=== PATIENT | female | born 1960 | race Caucasian/White ===

== ENCOUNTER 2019-09-19 12:17 | Outpatient (CLI) | payer MEDICARE, MEDICAID, SELFPAY ==
--- NOTE | ~2019-09-19 | CT_ITS ---
EXAMINATION:CT lung screening DATE: 09/19/2019 13:32 INDICATION: Personal history of tobacco dependence. Smoker who quit 7 years ago with 30 pack year his tory. TECHNIQUE: Computed tomography (CT) of the chest was performed without intravenous contrast. Automate d exposure control and iterative reconstruction technique were employed. The dose-length product (DLP ) was 103.43 mGy-cm. COMPARISON: Chest CT 08/30/2018 FINDINGS: There is mild emphysema. There is minimal atelectasis bilaterally. No pleural effusion. The heart size is normal. There are coronary artery calcifications. No pericardial effusion. There is di ffuse hepatic steatosis. Calcifications in the spleen are consistent with old granulomatous disease. There is mild thoracic spondylosis. IMPRESSION: 1. Lung-RADS category 1: Negative. Continue annual screening with noncontrast low-dose chest CT in 12 months. Reviewed, dictated and finalized at location B. IMPRESSION: 1. Lung-RADS category 1: Negative. Continue annual screening with noncontrast l ow-dose chest CT in 12 months.
--- NOTE | ~2019-09-19 | MM_ITS ---
EXAMINATION: MM screening meenakshi BI w marek HISTORY: Screening TECHNIQUE: Craniocaudal and mediolateral oblique 3-D tomosynthesis images were obtained and synthetic 2-D images were generated. CAD analysis was submitted and interpreted. COMPARISON: Comparison to multiple prior studies sequentially, with oldest reviewed study dated 08/25. BREAST PARENCHYMAL COMPOSITION: There are scattered areas of fibroglandular density. FINDINGS: There is no evidence of suspicious mass, calcification, or architectural distortion to sugg est malignancy in either breast. There has been no suspicious interval change. IMPRESSION: 1. No mammographic evidence of malignancy. 2. Recommend routine screening mammography in one year. BI-RADS Category 1: Negative Reviewed, dictated and finalized at location A.
[2019-09-19 12:28] LABS: Hematocrit 41.2 % (35.0-49.0); Mean Corpuscular HGB Conc 31.6 g/dL (32.0-36.0); Mean Corpuscular Volume 94.9 fL (78.0-102.0); Mean Platelet Volume 10.5 fl (9.2-11.8); Platelet Count Result 175 K/mm3 (150-420); Red Blood Count 4.34 M/mm3 (4.20-5.40); Red Cell Distribution Width 13.2 % (11.6-14.4); White Blood Count 6.2 K/mm3 (4.8-10.8)
[2019-09-19 13:44] LABS: Alanine Aminotransferase 34 U/L (14-59); Albumin Level 3.5 g/dL (3.4-5.0); Alkaline Phosphatase 144 U/L (46-116); Anion Gap 7 mmol/L (8-16); Aspartate Amino Transferase 26 U/L (15-37); Bilirubin,Total 0.2 mg/dL (0.00-1.00); Blood Urea Nitrogen 18 mg/dL (7-18); Calcium 8.5 mg/dL (8.5-10.1); Carbon Dioxide 29 mmol/L (21-32); Chloride 105 mmol/L (98-108); Cholesterol 188 mg/dL (0-200); Estimated Glomerular Filt Rate 59; Glucose 119 mg/dL (70-99); HDL Direct 32 mg/dL (40-60); LDL Cholesterol Calculated 94 mg/dL (<130); Osmolality Calculated 294 mOsm/kg (285-295); Potassium 3.8 mmol/L (3.5-5.1); Sodium 141 mmol/L (136-145); Total Protein 6.7 g/dL (6.4-8.2); Triglycerides 312 mg/dL (0-150)
[2019-09-19 17:29] LABS: Hemoglobin A1C 6.1 % (<5.7)
== END 2019-09-19 12:18 | disposition home or self-care (01) ==
PROVIDERS: Nurse Practitioner Family; PCP Family Medicine; Visit Provider Family Medicine
DX: Z12.2 Encounter for screening for malignant neoplasm of respiratory organs (principal); Z12.31 Encounter for screening mammogram for malignant neoplasm of breast; E78.00 Pure hypercholesterolemia, unspecified; I10 Essential (primary) hypertension; R73.09 Other abnormal glucose; Z87.891 Personal history of nicotine dependence
CPT/HCPCS: 36415; 77063; 77067; 80053; 80061; 83036; 85027; G0297

== ENCOUNTER 2020-02-10 12:24 | Outpatient (CLI) | payer MEDICARE, SELFPAY ==
[2020-02-10 22:17] LABS: SARS-CoV-2 RNA PCR Negative
== END 2020-02-10 12:25 | disposition home or self-care (01) ==
LOC: CHSLAB 12:28
PROVIDERS: PCP Nurse Practitioner Family; Visit Provider Nurse Practitioner Family
DX: Z20.822 Contact with and (suspected) exposure to COVID-19 (principal)
CPT/HCPCS: C9803; U0003

== ENCOUNTER 2020-05-18 11:15 | Outpatient (CLI) | payer MEDICARE, SELFPAY ==
[2020-05-18 12:08] LABS: SARS-CoV-2 RNA PCR Negative (Negative)
== END 2020-05-18 11:16 | disposition home or self-care (01) ==
LOC: CHSLAB 11:18
PROVIDERS: PCP Nurse Practitioner Family; Visit Provider Nurse Practitioner Family
DX: U07.1 COVID-19 (principal); N20.0 Calculus of kidney
CPT/HCPCS: 87086; C9803; U0003; U0005

== ENCOUNTER 2020-06-02 15:06 | Outpatient (NON) | payer MEDICARE, SELFPAY | END 2020-06-02 15:07 | disposition home or self-care (01) | LOC: CHSLAB 15:08 | PROVIDERS: PCP Nurse Practitioner Family; Visit Provider Nurse Practitioner Family | DX: N20.0 Calculus of kidney (principal) | CPT/HCPCS: 87086 ==

== ENCOUNTER 2020-07-17 09:45 | Outpatient (CLI) | payer MEDICARE, MEDICAID, SELFPAY ==
--- NOTE | ~2020-07-17 | US_ITS ---
US renal BI 07/17/2020 10:26 Procedure: Realtime transabdominal ultrasound of the kidneys and bladder. Indication: Renal stones Comparison: No prior studies for comparison. Findings: Renal echotexture is normal bilaterally without hydronephrosis, contour deforming mass or r enal calculus. The right kidney measures 10.8 cm and left kidney measures 10.3 cm. Bladder within no rmal limits. Impression: 1: Unremarkable renal ultrasound. No stones, masses or hydronephrosis. Reviewed, dictated and finalized at location B. Impression: 1: Unremarkable renal ultrasound. No stones, masses or hydronephrosis.
[2020-07-17 09:55] LABS: Basophils Absolute Auto 0.09 K/mm3 (0.00-0.10); Basophils Percent Auto 1.3 % (0.0-1.0); Eosinophils Percent Auto 1.4 % (1.0-6.0); Hematocrit 44.1 % (35.0-49.0); Hemoglobin 14.4 g/dL (12.0-15.0); Immature Granulocyte Absolute 0.03 K/mm3 (0.00-0.00); Immature Granulocyte Percent A 0.4 % (0.0-0.0); Lymphocytes Percent Auto 30.7 % (18.0-42.0); Mean Corpuscular HGB Conc 32.7 g/dL (32.0-36.0); Mean Corpuscular Hemoglobin 29.5 pg (27.0-31.0); Mean Corpuscular Volume 90.4 fL (78.0-102.0); Monocytes Absolute Auto 0.42 K/mm3 (0.10-0.90); Monocytes Percent Auto 5.9 % (2.0-11.0); Neutrophils Absolute Auto 4.3 K/mm3 (1.7-7.2); Neutrophils Percent Auto 60.3 % (50.0-70.0); Platelet Count Result 197 K/mm3 (150-420); Red Blood Count 4.88 M/mm3 (4.20-5.40); White Blood Count 7.2 K/mm3 (4.8-10.8)
[2020-07-17 10:26] LABS: Alanine Aminotransferase 28 U/L (14-59); Alkaline Phosphatase 153 U/L (46-116); Anion Gap 7 mmol/L (8-16); Aspartate Amino Transferase 17 U/L (15-37); Bilirubin,Total 0.4 mg/dL (0.00-1.00); Blood Urea Nitrogen 15 mg/dL (7-18); Calcium 9.3 mg/dL (8.5-10.1); Carbon Dioxide 32 mmol/L (21-32); Chloride 100 mmol/L (98-108); Cholesterol 170 mg/dL (0-200); Estimated Glomerular Filt Rate > 60; Glucose 94 mg/dL (70-99); HDL Direct 36 mg/dL (40-60); LDL Cholesterol Calculated 106 mg/dL (<130); Osmolality Calculated 288 mOsm/kg (285-295); Sodium 139 mmol/L (136-145); Total Protein 7.1 g/dL (6.4-8.2); Triglycerides 139 mg/dL (0-150)
== END 2020-07-17 09:46 | disposition home or self-care (01) ==
LOC: CHSIMG 09:47
PROVIDERS: PCP Nurse Practitioner Family; Visit Provider Nurse Practitioner Family
DX: N20.0 Calculus of kidney (principal); I10 Essential (primary) hypertension; E78.00 Pure hypercholesterolemia, unspecified
CPT/HCPCS: 36415; 76775; 80053; 80061; 85025

== ENCOUNTER 2020-07-30 11:42 | Emergency (ER) | payer MEDICARE, MEDICAID, SELFPAY ==
[2020-07-30 11:45] VITALS: BP 147/95; PULSE 81; RESP 18; TEMP 36.8; O2SAT 98
[2020-07-30] MEDS: ONDANSETRON HCL ODT 4 MG TABLET PO (12:01)
--- NOTE | 2020-07-30 12:04 | ED.GENADULT ---
HPI - General Adult General Chief complaint: Unspecified Stated complaint: ambulance Source: patient and EMS Mode of arrival: EMS Limitations: no limitations History of Present Illness HPI narrative: this is a 59-year-old female with history of asthma was at a earlier this afternoon and apparently became extremely anxious and passed out, family called EMS and was brought to our hospital ER the patient states that she is doing well back to her baseline currently not anxious but does have some nausea and did not hit her head no no seizure activity no bowel or bladder dysfunction no tongue biting. The patient has no fever or chills currently no shortness of breath no chest pain. Onset (ago): hour(s) Severity: mild Pain Consistency: now resolved Associated symptoms: nausea/vomiting and other ( Anxiety) Related Data Home Medications Medication Instructions Recorded Confirmed aspirin 81 mg tablet,delayed 81 mg PO DAILY 01/21/19 01/09/20 release ipratropium 0.5 mg-albuterol 3 mg 3 ml INHALATION QID PRN 01/21/19 01/09/20 (2.5 mg base)/3 mL nebulization soln Allergies Allergy/AdvReac Type Severity Reaction Status Date / Time codeine Allergy Intermediate Unknown Verified 07/16/20 09:32 morphine Allergy Intermediate Unknown Verified 07/16/20 09:32 Penicillins Allergy Intermediate Unknown Verified 07/16/20 09:32 methylprednisolone AdvReac Unknown Verified 07/16/20 09:32 Review of Systems Review of Systems: All systems reviewed & are unremarkable except as noted in HPI and below PMFSH Past Medical History Medical History Asthma Bipolar 1 disorder Bladder cancer Chronic low back pain Chronic neck pain GERD (gastroesophageal reflux disease) Hypercholesteremia Hypertension Nicotine dependence in remission Nocturnal leg cramps Overweight (BMI 25.0-29.9) Surgical History Surgical History Bladder tumor Tumor Removal 2011 H/O nephrolithotomy with removal of calculi x2 on right and x3 on left; History of hysterectomy (~1999) LIBERTAD BSO Hx of cataract surgery (~2014) Hx of tonsillectomy (~1966) Family History Family History Mother Family history of coronary artery disease Father Family history of coronary artery disease Brother Family history of coronary artery disease Social History Social History Smoking status: Former smoker Tobacco type: cigarettes Additional smoking assessment comments: Quit 2013. 30 pack-year history Alcohol intake: never Substance use: never Additional living arrangements comments: . No children. Additional occupation/education comments: Prior Occupation: [employer]. Gender identity (if verbalized by the patient): Female Exam Const: General: cooperative, healthy appearing, comfortable, no acute distress and well developed HENMT: Head: normal to inspection Ears: hearing grossly normal bilaterally General nose exam: Normal external nose present Face and sinus: normal facial exam Eyes: General: appearance normal, both eyes and all related structures Eyelids: eyelids normal Conjunctivae: conjunctivae normal Sclera: sclerae normal Neck: Neck: normal visual inspection, full ROM, no lymphadenopathy and no meningeal signs Chest: Chest palpation & inspection: normal inspection of the chest Resp: Effort & Inspection: normal respiratory effort Cardio: Jugular venous distension: no JVD Palpation: normal PMI Rate: regular rate Rhythm: regular rhythm Heart sounds: S1 normal heart sound present and S2 normal heart sound present GI: Inspection: normal to inspection Back/Spine/Pelvis: Back: no CVA tenderness Skin: General skin exam: normal color and no rashes or lesions noted Neuro: General: oriented to person, oriented to pl
[2020-07-30 12:20] VITALS: BP 142/69; PULSE 82; RESP 16; O2SAT 94
== END 2020-07-30 12:20 | disposition home or self-care (01) ==
PROVIDERS: Emergency Provider Emergency Medicine; PCP Family Medicine
DX: F41.9 Anxiety disorder, unspecified (principal)
CPT/HCPCS: 99283; A9270

== ENCOUNTER 2020-09-07 09:55 | Outpatient (CLI) | payer MEDICARE, MEDICAID, SELFPAY ==
--- NOTE | ~2020-09-07 | XR_ITS ---
EXAMINATION: XR abdomen/kub 1V INDICATION: Calculus of kidney and flank pain TECHNIQUE: Supine views of the abdomen were obtained on 2 radiographs. COMPARISON: 05/13/2016 FINDINGS: No urolithiasis is identified. The bowel gas pattern is normal. Punctate left upper quadran t calcifications are consistent with old granulomatous disease of the spleen. IMPRESSION: 1. No urolithiasis is identified. Reviewed, dictated and finalized at location A.
== END 2020-09-07 09:56 | disposition home or self-care (01) ==
PROVIDERS: PCP Family Medicine; Visit Provider Internal Medicine Nephrology
DX: N20.0 Calculus of kidney (principal); R10.9 Unspecified abdominal pain
CPT/HCPCS: 74018

== ENCOUNTER 2020-09-09 12:01 | Outpatient (CLI) | payer MEDICARE, MEDICAID, SELFPAY ==
[2020-09-09 13:08] LABS: Albumin Level 4.3 g/dL (3.5-5.1); Anion Gap 8 mmol/L (8-16); Blood Urea Nitrogen 15 mg/dL (7-17); Calcium 9.7 mg/dL (8.4-10.2); Carbon Dioxide 28 mmol/L (22-30); Chloride 100 mmol/L (98-107); Estimated Glomerular Filt Rate > 60; Glucose 90 mg/dL (65-110); Phosphorus 3.6 mg/dL (2.5-4.5); Sodium 136 mmol/L (137-145); Uric Acid 4.5 mg/dL (2.5-7.5)
[2020-09-09 13:15] LABS: Add Urine Microscopic? NO; Appearance Urine Clear (Clear); Bilirubin Urine Negative (Negative); Blood Urine Negative (Negative); Color Urine Yellow (Yellow); Glucose Urine UA Negative (Negative); Ketones Urine Negative (Negative); Leukocyte Esterase Ur Negative LEU/UL (NEGATIVE); Nitrate Urine Negative (Negative); Protein Urine Negative (Negative); Specific Grav Ur 1.021 (1.001-1.035); Urobilinogen Urine Negative mg/dL (<2.0)
[2020-09-09 13:18] LABS: Parathyroid Intact 46.1 pg/mL (7.5-53.5)
== END 2020-09-09 12:02 | disposition home or self-care (01) ==
PROVIDERS: PCP Family Medicine; Visit Provider Internal Medicine Nephrology
DX: N20.0 Calculus of kidney (principal)
CPT/HCPCS: 36415; 80069; 81003; 82131; 83970; 84550

== ENCOUNTER 2021-03-03 08:41 | Emergency (ER) | payer OTHER, SELFPAY ==
--- NOTE | ~2021-03-03 | CT_ITS ---
EXAMINATION: CT abdomen pelvis w con DATE: 03/03/2021 13:51 INDICATION: Left abdominal pain. Nausea and vomiting. TECHNIQUE: Computed tomography (CT) of the abdomen and pelvis was performed with 100 mL Omnipaque 350 intravenous contrast. Automated exposure control and iterative reconstruction technique were employe d. The dose-length product was 466.56 mGy-cm. COMPARISON: CT abdomen and pelvis 09/05/2018 FINDINGS: The visualized portions of the lung bases demonstrates minimal atelectasis. No pleural effu brendan. The heart size is normal. No pericardial effusion. There is a 4 mm cyst in the liver. Calcifica tions in the spleen are consistent with old granulomatous disease. The gallbladder, pancreas, and rig ht adrenal gland are normal. There is mild fat stranding around the left adrenal gland. The kidneys a re normal. There are no dilated loops of bowel. The appendix is normal. There are no pathologically e nlarged lymph nodes. There is no free intraperitoneal fluid. There is mild thoracolumbar spondylosis. There is mild chronic anterior wedging of multiple lower thoracic vertebral bodies. IMPRESSION: 1. Mild fat stranding around left adrenal gland, consistent with inflammation/edema. Reviewed, dictated and finalized at location A. N [facility] [employer] IMPRESSION: 1. Mild fat stranding around left adrenal gland, consistent with inflammation/e brandon.
[2021-03-03 09:18] VITALS: BP 201/91; PULSE 88; RESP 22; TEMP 36.2; O2SAT 99
--- NOTE | 2021-03-03 09:30 | ED.NAVMDI ---
HPI - Nausea/Vomiting/Diarrhea General Chief complaint: Nausea/Vomiting/Diarrhea Stated complaint: Diarrhea/Vomiting Time Seen by Provider: 03/03/21 09:30 Source: patient Mode of arrival: wheelchair Limitations: no limitations History of Present Illness HPI Narrative: 60-year-old woman comes in today complaining of abdominal pain, nausea, vomiting and diarrhea that started yesterday. She states that she feels he is having leg cramps. Patient states that she has had no fever, chills, cough or cold symptoms, sore throat, blood in her stool, blood in her vomitus, dysuria, headache, chest pain or syncope. She states she smokes marijuana every other day. MD elicited complaint: nausea, vomiting, diarrhea and abdominal pain Onset (ago): day(s) (1) Description of vomiting: food contents and watery Description of diarrhea: watery Associated nausea: Yes Associated abdominal pain: Yes Location of pain: diffuse Pain consistency: constant Severity: moderate Exacerbating factors: eating Relieving factors: none Context: marijuana use Associated symptoms: nausea/vomiting Treatment prior to arrival: none Related Data Home Medications Medication Instructions Recorded Confirmed aspirin 81 mg tablet,delayed 81 mg PO DAILY 01/21/19 12/21/20 release Allergies Allergy/AdvReac Type Severity Reaction Status Date / Time codeine Allergy Intermediate Unknown Verified 03/03/21 09:18 morphine Allergy Intermediate Unknown Verified 03/03/21 09:18 Penicillins Allergy Intermediate Unknown Verified 03/03/21 09:18 methylprednisolone AdvReac Unknown Verified 03/03/21 09:18 Review of Systems Review of Systems: All systems reviewed & are unremarkable except as noted in HPI and below Constitutional: Constitutional: Denies chills and Denies fever(s) Eyes: Eyes: Denies change in vision and Denies photophobia ENT: Denies nasal congestion and Denies sore throat Cardiovascular: Cardiovascular: Denies chest pain and Denies radiating jaw, neck or arm pain Respiratory: Respiratory: Denies cough, Denies dyspnea and Denies wheezing Gastrointestinal: Gastrointestinal: Reports as per HPI Genitourinary: Genitourinary: Denies nocturia and Denies dysuria Musculoskeletal: Musculoskeletal: Denies back pain, Denies arthralgias and Denies joint swelling Integumentary/Breasts: Skin/Breast: Denies pruritus, Denies erythema and Denies rash Neurologic: Denies vertigo, Denies dizziness and Denies syncope Allergic/Immunologic: Allergic/Immunologic: Denies lip swelling and Denies throat swelling PMFSH Past Medical History Medical History Asthma Bipolar 1 disorder Bladder cancer Chronic low back pain Chronic neck pain GERD (gastroesophageal reflux disease) Hypercholesteremia Hypertension Nicotine dependence in remission Nocturnal leg cramps Overweight (BMI 25.0-29.9) Urge urinary incontinence Surgical History Surgical History Bladder tumor Tumor Removal 2011 H/O nephrolithotomy with removal of calculi x2 on right and x3 on left; History of hysterectomy (~1999) LIBERTAD BSO Hx of cataract surgery (~2014) Hx of tonsillectomy (~1966) Family History Family History Mother Family history of coronary artery disease Father Family history of coronary artery disease Brother Family history of coronary artery disease Social History Social History Smoking status: Former smoker Tobacco type: cigarettes Additional smoking assessment comments: Quit 2013. 30 pack-year history Alcohol intake: never Substance use: never Additional living arrangements comments: . No children. Additional occupation/education comments: Prior Occupation: [employer]. Gender identity (if verbalized by the patient): Female Exam Const:
[2021-03-03] MEDS: ONDANSETRON INJ 4 MG/2 ML VIAL IV PUSH (09:58)
[2021-03-03] MEDS: SODIUM CHLORIDE 0.9% IV 1,000 ML 999 ML IV CONT (09:59)
[2021-03-03 10:07] LABS: Basophils Absolute Auto 0.04 K/mm3 (0.00-0.10); Basophils Percent Auto 0.4 % (0.0-1.0); Hematocrit 48.4 % (35.0-49.0); Hemoglobin 16.4 g/dL (12.0-15.0); Immature Granulocyte Absolute 0.05 K/mm3 (0.00-0.00); Immature Granulocyte Percent A 0.4 % (0.0-0.0); Lymphocytes Absolute Auto 1.15 K/mm3 (1.10-4.50); Lymphocytes Percent Auto 10.3 % (18.0-42.0); Mean Corpuscular HGB Conc 33.9 g/dL (32.0-36.0); Mean Corpuscular Hemoglobin 30.2 pg (27.0-31.0); Mean Corpuscular Volume 89.1 fL (78.0-102.0); Mean Platelet Volume 11.5 fl (9.2-11.8); Monocytes Absolute Auto 0.36 K/mm3 (0.10-0.90); Monocytes Percent Auto 3.2 % (2.0-11.0); Neutrophils Absolute Auto 9.6 K/mm3 (1.7-7.2); Neutrophils Percent Auto 85.7 % (50.0-70.0); Platelet Count Result 219 K/mm3 (150-420); Red Blood Count 5.43 M/mm3 (4.20-5.40); Red Cell Distribution Width 13.2 % (11.6-14.4); White Blood Count 11.2 K/mm3 (4.8-10.8)
[2021-03-03 10:24] LABS: Alanine Aminotransferase 23 U/L (14-59); Albumin Level 4.6 g/dL (3.4-5.0); Alkaline Phosphatase 165 U/L (46-116); Anion Gap 14 mmol/L (8-16); Aspartate Amino Transferase 19 U/L (15-37); Bilirubin,Total 0.4 mg/dL (0.00-1.00); Blood Urea Nitrogen 13 mg/dL (7-18); Calcium 9.5 mg/dL (8.5-10.1); Carbon Dioxide 26 mmol/L (21-32); Chloride 97 mmol/L (98-108); Estimated CRCL calculation 50 ml/min; Estimated Glomerular Filt Rate 60; Glucose 161 mg/dL (70-99); Osmolality Calculated 287 mOsm/kg (285-295); Potassium 3.2 mmol/L (3.5-5.1); Sodium 137 mmol/L (136-145); Total Protein 8.8 g/dL (6.4-8.2)
[2021-03-03 10:49] LABS: SARS-CoV-2 RNA PCR Negative (Negative)
[2021-03-03] MEDS: KCL 20 MEQ/SW 100 ML 100 ML 50 MEQ IVPB (11:16)
[2021-03-03] MEDS: SODIUM CHLORIDE 0.9% IV 500 ML 250 ML (11:16)
[2021-03-03 12:59] LABS: Add Urine Microscopic? YES; Appearance Urine Clear (Clear); Bilirubin Urine Negative (Negative); Blood Urine 1+ (Negative); Color Urine Light Yellow (Yellow); Glucose Urine UA Trace (Negative); Ketones Urine Trace (Negative); Leukocyte Esterase Ur Negative LEU/UL (Negative); Nitrate Urine Negative (Negative); Protein Urine 1+ (Negative); Specific Grav Ur 1.015 (1.010-1.020); Urobilinogen Urine 0.2 mg/dL (0.2-1.0); pH Urine 6.5 (5.0-8.0)
[2021-03-03] MEDS: METOCLOPRAMIDE HCL INJ 10 MG/2 ML VIAL IV PUSH (13:01)
[2021-03-03 13:06] LABS: Bacteria Urine Trace /hpf; RBC Urine 0-2 /hpf (0-2); Squamous Epithelial Cell Urine Rare /hpf (Few); WBC Urine None seen /hpf (0-3)
[2021-03-03 13:15] VITALS: BP 168/78; PULSE 90
[2021-03-03 13:16] VITALS: BP 156/83; PULSE 97
[2021-03-03 15:28] VITALS: BP 129/75; PULSE 95; RESP 16; O2SAT 98
[2021-03-06 06:40] LABS: Cortisol Random 55.6 mcg/dL (***)
[2021-03-08 06:25] LABS: Adrenocorticotropic Hormone 686 pg/mL (6-50)
== END 2021-03-03 15:34 | disposition home or self-care (01) ==
PROVIDERS: Emergency Provider Emergency Medicine; PCP Nurse Practitioner Family
DX: K52.9 Noninfective gastroenteritis and colitis, unspecified (principal); E87.6 Hypokalemia; E86.0 Dehydration; R94.8 Abnormal results of function studies of other organs and systems; Z20.822 Contact with and (suspected) exposure to COVID-19; K21.9 Gastro-esophageal reflux disease without esophagitis; E78.00 Pure hypercholesterolemia, unspecified; I10 Essential (primary) hypertension; Z87.891 Personal history of nicotine dependence
CPT/HCPCS: 36415; 74177; 80053; 81001; 82024; 82533; 85025; 96361; 96365; 96366; 96375; 99283; 99284; C9803; J2405; J2765; J3480; J7030; J7040; Q9967; U0003; U0005

== ENCOUNTER 2021-06-01 01:43 | Inpatient (IN) | payer OTHER, SELFPAY ==
--- NOTE | ~2021-06-01 | CT_ITS ---
EXAMINATION: CT abdomen pelvis w con DATE: 06/01/2021 03:11 INDICATION: Abdominal pain. Nausea and vomiting. TECHNIQUE: Computed tomography (CT) of the abdomen and pelvis was performed with 100 mL Omnipaque 350 intravenous contrast. Automated exposure control and iterative reconstruction technique were employe d. The dose-length product was 504.80 mGy-cm. COMPARISON: CT abdomen and pelvis 03/03/2021 FINDINGS: The visualized portions of the lung bases demonstrate minimal atelectasis. No pleural effus ion. The heart size is normal. No pericardial effusion. There is a small sliding hiatal hernia. There is a 5 mm cyst in the liver. Calcifications in the spleen are consistent with old granulomatous dise ase. The gallbladder, pancreas, adrenal glands, are normal. There is a 2 mm stone in right kidney. Th ere is a 1 mm stone in left kidney. There are no dilated loops of bowel. The appendix is normal. Ther e are no pathologically enlarged lymph nodes. There is no free intraperitoneal fluid. Pelvic floor re laxation is noted. There is mild thoracolumbar spondylosis. IMPRESSION: 1. Small sliding hiatal hernia. Reviewed, dictated and finalized at location A.
[2021-06-01 01:45] VITALS: BP 139/89; PULSE 78; RESP 20; TEMP 36.9; O2SAT 95
--- NOTE | 2021-06-01 01:59 | ED.GENADULT ---
HPI - General Adult General Chief complaint: Unspecified Stated complaint: vomitting Source: patient Mode of arrival: ambulatory Limitations: no limitations History of Present Illness HPI narrative: this is a 60-year-old female that presents with nausea vomiting with some abdominal pain with a burning sensation started at 10 this evening there is no shortness of breath no chest pain patient states that she is also having diarrhea with no fever chills no flank pain no dysuria. The patient has a history of hyperlipidemia history of GERD and depression. Onset (ago): hour(s) Severity: moderate Quality: burning Pain Consistency: constant Relieving factors: none Exacerbating factors: none Associated symptoms: nausea/vomiting Related Data Allergies Allergy/AdvReac Type Severity Reaction Status Date / Time codeine Allergy Intermediate Unknown Verified 05/26/21 10:42 morphine Allergy Intermediate Unknown Verified 05/26/21 10:42 Penicillins Allergy Intermediate Unknown Verified 05/26/21 10:42 methylprednisolone AdvReac Unknown Verified 05/26/21 10:42 Review of Systems Review of Systems: All systems reviewed & are unremarkable except as noted in HPI and below PMFSH Past Medical History Medical History Asthma Bipolar 1 disorder Bladder cancer Chronic low back pain Chronic neck pain GERD (gastroesophageal reflux disease) Hypercholesteremia Hypertension Nicotine dependence in remission Nocturnal leg cramps Overweight (BMI 25.0-29.9) Surgical History Surgical History Bladder tumor Tumor Removal 2011 H/O nephrolithotomy with removal of calculi x2 on right and x3 on left; History of hysterectomy (~1999) LIBERTAD BSO Hx of cataract surgery (~2014) Hx of tonsillectomy (~1966) Family History Family History Mother Family history of coronary artery disease Father Family history of coronary artery disease Brother Family history of coronary artery disease Social History Social History Smoking status: Former smoker Tobacco type: cigarettes Additional smoking assessment comments: Quit 2013. 30 pack-year history Alcohol intake: never Substance use: never Additional living arrangements comments: . No children. Additional occupation/education comments: Prior Occupation: [employer]. Gender identity (if verbalized by the patient): Female Exam Const: General: no acute distress, well developed and anxious HENMT: Head: normal to inspection Ears: hearing grossly normal bilaterally General nose exam: Normal external nose present Face and sinus: normal facial exam Mouth: Yes Normal oral and palatal mucosa present Teeth and gingiva: dentition normal and gingiva normal Throat: posterior oropharynx normal Eyes: General: appearance normal, both eyes and all related structures Conjunctivae: conjunctivae normal Sclera: sclerae normal Neck: Neck: normal visual inspection, full ROM, no lymphadenopathy and no meningeal signs Chest: Chest palpation & inspection: normal inspection of the chest and normal palpation of entire chest wall Resp: Effort & Inspection: normal respiratory effort and able to speak in complete sentences Cardio: Jugular venous distension: no JVD Palpation: normal PMI Rate: regular rate Rhythm: regular rhythm GI: Inspection: normal to inspection GI Palp: Yes abdominal tenderness Percussion: Yes normal to percussion Urinary Catheter: Urinary Catheter: patent and draining Back/Spine/Pelvis: Back: no CVA tenderness Skin: General skin exam: normal color and no rashes or lesions noted Neuro: General: oriented to person, oriented to place, oriented to time, patient oriented x3 and gait normal Extrem: General: normal to inspection, full ROM and capillary refill normal
[2021-06-01] MEDS: ONDANSETRON INJ 4 MG/2 ML VIAL IV PUSH ×5 (02:12→15:59)
[2021-06-01] MEDS: SODIUM CHLORIDE 0.9% IV 1,000 ML 999 ML IV CONT (02:13)
[2021-06-01] MEDS: PANTOPRAZOLE SODIUM IV 40 MG VIAL IV PUSH (02:13)
[2021-06-01 02:14] LABS: Basophils Absolute Auto 0.07 K/mm3 (0.00-0.10); Basophils Percent Auto 0.7 % (0.0-1.0); Eosinophils Absolute Auto 0.02 K/mm3 (0.02-0.50); Eosinophils Percent Auto 0.2 % (1.0-6.0); Hematocrit 48.9 % (35.0-49.0); Immature Granulocyte Absolute 0.06 K/mm3 (0.00-0.00); Immature Granulocyte Percent A 0.6 % (0.0-0.0); Lymphocytes Absolute Auto 0.97 K/mm3 (1.10-4.50); Lymphocytes Percent Auto 9.5 % (18.0-42.0); Mean Corpuscular HGB Conc 32.7 g/dL (32.0-36.0); Mean Corpuscular Hemoglobin 29.7 pg (27.0-31.0); Mean Corpuscular Volume 90.9 fL (78.0-102.0); Mean Platelet Volume 11.1 fl (9.2-11.8); Monocytes Percent Auto 4.9 % (2.0-11.0); Neutrophils Absolute Auto 8.6 K/mm3 (1.7-7.2); Neutrophils Percent Auto 84.1 % (50.0-70.0); Platelet Count Result 200 K/mm3 (150-420); Red Blood Count 5.38 M/mm3 (4.20-5.40); Red Cell Distribution Width 13.2 % (11.6-14.4); White Blood Count 10.3 K/mm3 (4.8-10.8)
[2021-06-01 02:30] LABS: Alanine Aminotransferase 30 U/L (14-59); Albumin Level 4.8 g/dL (3.4-5.0); Alkaline Phosphatase 167 U/L (46-116); Anion Gap 20 mmol/L (8-16); Aspartate Amino Transferase 27 U/L (15-37); Bilirubin,Total 0.8 mg/dL (0.00-1.00); Blood Urea Nitrogen 19 mg/dL (7-18); Carbon Dioxide 17 mmol/L (21-32); Chloride 98 mmol/L (98-108); Estimated CRCL calculation 40 ml/min; Estimated Glomerular Filt Rate 54; Glucose 202 mg/dL (70-99); Lipase 227 U/L (73-393); Osmolality Calculated 288 mOsm/kg (285-295); Potassium 3.1 mmol/L (3.5-5.1); Sodium 135 mmol/L (136-145)
[2021-06-01 02:35] LABS: Lactic Acid Reflex 4.6 mmol/L (0.4-2.0)
[2021-06-01] MEDS: KETOROLAC 30 MG/ML VIAL (*BKC) IV PUSH (02:37)
--- NOTE | 2021-06-01 03:01 | PC.NURSE ---
0240 patient urinated all over self, clean gown & bed clothes changed.
[2021-06-01] MEDS: HYDROmorphone HCL INJ (*CRX) 2 MG/ML VIAL 1 MG IV PUSH (03:39)
[2021-06-01 03:41] LABS: SARS-CoV-2 Ag Negative (Negative)
--- NOTE | 2021-06-01 03:44 | PC.NURSE ---
patient screaming I am hurting I need meds. During IV dilaudid injection, patient asked for food & water. explained NPO.
[2021-06-01] MEDS: metroNIDAZOLE 500 MG/ISO 100ML 500 MG/100 ML BAG 100 MG IVPB (04:58)
[2021-06-01] MEDS: SODIUM CHLORIDE 0.9% IV 1,000 ML 100 ML IV CONT ×2 (04:58→14:41)
--- NOTE | 2021-06-01 05:00 | PC.NURSE ---
Annabella 2nd floor nurse notified the need for UA to be collected, and Flagyl & NS started in ER. The 2nd floor would need to give K+ and cipro.
[2021-06-01 05:09] VITALS: BP 139/76; PULSE 80; RESP 18; TEMP 36.6; O2SAT 95
--- NOTE | 2021-06-01 05:10 | ADMGEN ---
This patient, Arlet Blake, was admitted to 2nd Floor Room 205-2. Patient was oriented to hospital policies and general routines including ID bracelet, bed and alarms, pain management, procedures, bathroom and other care routines, personal items, smoking policy, room service/diet, and visiting hours. Information on how to activate the Rapid Response Team has been discussed. Patient was encouraged to report perceived risks to care and to ask questions if they do not understand what they are told or what they should do.
[2021-06-01 05:13] LABS: Reflex Lactic Acid Yes or No Add Lactic
[2021-06-01 05:23] VITALS: BMI 27.2
[2021-06-01 05:30] VITALS: BP 117/69; PULSE 80; RESP 18; TEMP 36.7; O2SAT 94
[2021-06-01] MEDS: CIPROFLOXACIN 400 MG/D5W 200ML 200 ML 200 MG IVPB ×2 (05:50→15:58)
[2021-06-01 05:53] LABS: Lactic Acid 1.3 mmol/L (0.4-2.0)
[2021-06-01 06:22] LABS: Appearance Urine Clear (Clear); Bilirubin Urine Negative (Negative); Color Urine Light Yellow (Yellow); Glucose Urine UA Negative (Negative); Ketones Urine Negative (Negative); Leukocyte Esterase Ur Negative (Negative); Nitrate Urine Negative (Negative); Protein Urine Negative (Negative); Specific Grav Ur <= 1.005 (1.010-1.020); Urobilinogen Urine 0.2 mg/dL (0.2-1.0); pH Urine 5.5 (5.0-8.0)
[2021-06-01 06:26] LABS: Add Urine Microscopic? YES; Bacteria Urine None seen /hpf; Blood Urine Trace-lysed (Negative); RBC Urine None seen /hpf (0-2); WBC Urine None seen /hpf (0-3)
[2021-06-01] MEDS: KCL 20 MEQ/SW 100 ML 100 ML 50 MEQ IVPB (07:11)
--- NOTE | 2021-06-01 07:17 | PM.IMHP ---
H&P: HPI History of Present Illness Date/Time: 06/01/21 07:17 this is a 60-year-old female who presented to our emergency department with complaints of nausea vomiting , diarrhea and abdominal pain. Patient has a past medical history of asthma, bipolar, bladder cancer, chronic back pain, chronic neck pain, GERD, hypercholesterolemia, hypertension, nicotine dependence, and leg cramps. According to patient she developed nausea vomiting and diarrhea yesterday at approximately 10:00 she also noted that she had abdominal pain to her left upper and lower quadrant. Patient notes that she did not eat anything unusual she did not experience SOB, CP, palpitation, extremity numbness, lightheadedness, dizziness, constipation, hematemesis,hematochezia chills, or fever. Vital signs 117/69, 80, 18, 98, 94% on room air, WBCs 10.3, hemoglobin 16.0, hematocrit 48.9, platelets 200, sodium 135, potassium 3.1, BUN 14, creatinine 0.14, glucose 202, lactic acid 4.6, total bili 0.8, AST 27, ALT 30, lipase 227 UA indicates trace of blood COVID-negative CT of the abdomen no significant findings. patient being admitted for gastroenteritis. Patient continues to complain of left upper and lower abdominal pain with diarrhea, she still continues to have nausea with no vomiting . Chief Complaint: Nausea vomiting diarrhea in abdominal pain Review of Systems Review of Systems: A 14 organ system Review of Systems was performed and pertinent positives included in the HPI, otherwise remaining ROS is negative. [facility] Past Medical History Medical History Asthma Bipolar 1 disorder Bladder cancer Chronic low back pain Chronic neck pain GERD (gastroesophageal reflux disease) Hypercholesteremia Hypertension Nicotine dependence in remission Nocturnal leg cramps Overweight (BMI 25.0-29.9) Surgical History Surgical History Bladder tumor Tumor Removal 2011 H/O nephrolithotomy with removal of calculi x2 on right and x3 on left; History of hysterectomy (~1999) LIBERTAD BSO Hx of cataract surgery (~2014) Hx of tonsillectomy (~1966) Family History Family History Mother Family history of coronary artery disease Father Family history of coronary artery disease Brother Family history of coronary artery disease Social History Social History Smoking packs per day: 1 Smoking cigarettes per day: 20.0 Years smoked: 30 Smoking pack-years: 30.00 Smoking status: Former smoker Tobacco type: cigarettes Second hand tobacco smoke exposure: Yes Additional smoking assessment comments: Quit 2012. 30 pack-year history Alcohol intake: never Substance use: current Substance use type: marijuana Other substance usage details: pain control for 2 crushed discs in back Last use: last week Additional living arrangements comments: . No children. Additional occupation/education comments: Prior Occupation: [employer]. Gender identity (if verbalized by the patient): Female Spiritual care concerns: No Meds Home Medications and Allergies Home Medications Medication Instructions Recorded Confirmed Type albuterol sulfate 90 mcg/actuation 1 puff INHALATION Q4H PRN #18 gm 01/23/19 06/01/21 Rx aerosol inhaler cyclobenzaprine 10 mg tablet 10 mg PO Q8H PRN #90 tablet 01/16/20 06/01/21 Rx alprazolam [Xanax] 0.5 mg PO TID PRN #20 tablet 07/30/20 06/01/21 Rx benzonatate 200 mg capsule 200 mg PO BID PRN #60 cap 12/07/20 06/01/21 Rx ondansetron 4 mg PO Q6H PRN #12 tablet 03/03/21 06/01/21 Rx diclofenac sodium 50 mg 50 mg PO TID PRN #60 tablet 05/26/21 06/01/21 Rx tablet,delayed release fluticasone propionate 50 1 spray NASAL DAILY #18.2 ml 05/26/21 06/01/21 Rx mcg/actuation nasal spray,suspension hydrochlorothiazide 25 mg tablet
[2021-06-01 08:00] VITALS: BP 102/67; PULSE 81; RESP 20; TEMP 36.9; O2SAT 94
[2021-06-01] MEDS: SACCHAROMYCES BOULARDII 250 MG CAPSULE PO ×2 (08:41→16:00)
[2021-06-01 15:22] VITALS: BP 135/65; PULSE 86; RESP 16; TEMP 37.1; O2SAT 96
[2021-06-01] MEDS: HYDROmorphone HCL INJ (*CRX) 2 MG/ML VIAL 0.5 MG IV PUSH (21:50)
[2021-06-02] VITALS: BP 116/70; PULSE 76; RESP 16; TEMP 36.8; O2SAT 96
[2021-06-02] MEDS: SODIUM CHLORIDE 0.9% IV 1,000 ML 100 ML IV CONT ×3 (00:58→21:31)
[2021-06-02] MEDS: ACETAMINOPHEN 325 MG TABLET 650 MG PO ×2 (02:10→15:18)
[2021-06-02] MEDS: CIPROFLOXACIN 400 MG/D5W 200ML 200 ML 200 MG IVPB (04:29)
[2021-06-02 05:09] LABS: Hemoglobin 13.6 g/dL (12.0-15.0); Mean Corpuscular HGB Conc 32.4 g/dL (32.0-36.0); Mean Corpuscular Hemoglobin 30.2 pg (27.0-31.0); Mean Corpuscular Volume 93.3 fL (78.0-102.0); Mean Platelet Volume 11.1 fl (9.2-11.8); Platelet Count Result 142 K/mm3 (150-420); Red Cell Distribution Width 13.7 % (11.6-14.4); White Blood Count 4.6 K/mm3 (4.8-10.8)
[2021-06-02 05:24] LABS: Alanine Aminotransferase 30 U/L (14-59); Albumin Level 3.2 g/dL (3.4-5.0); Alkaline Phosphatase 112 U/L (46-116); Anion Gap 7 mmol/L (8-16); Aspartate Amino Transferase 39 U/L (15-37); Bilirubin,Total 0.2 mg/dL (0.00-1.00); Blood Urea Nitrogen 9 mg/dL (7-18); Carbon Dioxide 26 mmol/L (21-32); Chloride 105 mmol/L (98-108); Estimated CRCL calculation 61 ml/min; Estimated Glomerular Filt Rate > 60; Glucose 123 mg/dL (70-99); Magnesium 2.2 mg/dL (1.8-2.4); Osmolality Calculated 285 mOsm/kg (285-295); Potassium 3.2 mmol/L (3.5-5.1); Sodium 138 mmol/L (136-145); Total Protein 6.6 g/dL (6.4-8.2)
[2021-06-02 08:00] VITALS: BP 135/72; PULSE 72; TEMP 36.6; O2SAT 98
[2021-06-02] MEDS: CHOLESTYRAMINE (W/ SUGAR) 4 GM POWD.PACK PO ×2 (08:38→16:56)
[2021-06-02] MEDS: ONDANSETRON HCL ODT 4 MG TABLET PO ×2 (08:38→17:36)
[2021-06-02] MEDS: FLUTICASONE PROPIONATE 0.05% NA SPR 16 GM BTL (*BKC) 1 SPRAY NASAL (08:38)
[2021-06-02] MEDS: MONTELUKAST SODIUM 10 MG TABLET PO (08:39)
[2021-06-02] MEDS: MIRABEGRON 25 MG ER TABLET PO (08:39)
[2021-06-02] MEDS: ENOXAPARIN 40 MG/0.4 ML SYRINGE SUB-Q (08:40)
[2021-06-02] MEDS: hydroCHLOROthiazide 25 MG TABLET BY MOUTH (08:40)
[2021-06-02] MEDS: PARoxetine 20 MG TABLET BY MOUTH (08:40)
[2021-06-02] MEDS: ROSUVASTATIN 10 MG TABLET BY MOUTH (08:41)
[2021-06-02] MEDS: SACCHAROMYCES BOULARDII 250 MG CAPSULE PO ×2 (08:41→16:53)
[2021-06-02] MEDS: PANTOPRAZOLE 40 MG TABLET PO (08:54)
--- NOTE | 2021-06-02 09:30 | P.PNIM_ITS ---
Progress Note: A&P Assessment and Plan (1) Enteritis: Code(s): K52.9 - Noninfective gastroenteritis and colitis, unspecified Status: Acute Assessment and Plan: * Possibly secondary to medication(diclofenac ) versus viral or bacterial infection * Lactic acid elevated 4.6> 1.3 * WBCs within normal limits * CT of the abdomen no significant findings * Patient started on Cipro along with Flagyl * C. difficile came back Negative * Continue Zofran * diclofenac recently started by primary care physician for chronic back pain * Started on a clear liquid diet * Started Cholestyramine today BID * consider sending home but was nauseated with diarrhea after eating with abdominal pain . * Will plan on discharge tomorrow. (2) Chronic neck pain: Code(s): M54.2 - Cervicalgia; G89.29 - Other chronic pain Status: Chronic Assessment and Plan: * Patient recently started on diclofenac sodium * Continue Flexeril * Continue pain medication * Will hold diclofenac sodium (3) Chronic low back pain: Code(s): M54.5 - Low back pain; G89.29 - Other chronic pain Status: Acute Assessment and Plan: Patient recently started on diclofenac sodium * Continue Flexeril * Continue pain medication * Will hold diclofenac sodium (4) Hypertension: Code(s): I10 - Essential (primary) hypertension Status: Acute Assessment and Plan: * Stable * Continue hctz * vs as ordered * Will adjust medication as needed (5) Hypercholesteremia: Code(s): E78.00 - Pure hypercholesterolemia, unspecified Status: Acute Assessment and Plan: * Continue statins (6) GERD (gastroesophageal reflux disease): Code(s): K21.9 - Gastro-esophageal reflux disease without esophagitis Status: Acute Assessment and Plan: * Started pantoprazole (7) Bipolar 1 disorder: Code(s): F31.9 - Bipolar disorder, unspecified Status: Acute Assessment and Plan: * Continue home medication (8) Asthma: Code(s): J45.909 - Unspecified asthma, uncomplicated Status: Acute Assessment and Plan: * Continue albuterol (9) Acute kidney injury: Code(s): N17.9 - Acute kidney failure, unspecified Status: Acute Assessment and Plan: * Creatinine slightly elevated will trend * Possibly secondary to nausea vomiting and diarrhea * Will closely monitor creatinine level Subjective Date/time seen: 06/02/21 09:30 this is a 60-year-old with some colitis that has been noted she still having diarrhea and she was unable to drink all of her clear liquid. So we will continue on clear liquid and started on some Cholestyramine to see if this helps patient better and attempt for her to have some formed stool. Exam Narrative: GENERAL: This is a well-nourished, well-developed patient, in no apparent distress. feeling weak HEAD: normocephalic, atraumatic. EYES: PERRL. Sclera clear/white. Vision is grossly intact. EARS: External ears normal, auditory canals clear and without drainage, TMs normal without perforation. Hearing grossly intact. NOSE: External nose normal with no obvious nasal discharge, nares without redness, no rhinorrhea. THROAT: Mucous membranes moist, posterior pharynx clear. NECK: Neck supple, non-tender without lymphadenopathy, masses or thyromegaly. CARDIOVASCULAR: Regular rate and rhythm, gallops, or rubs. RESPIRATORY: Clear to auscultation. Breath sounds equal bilaterally. No wheezes, rales, or rhonchi. GASTROINTESTINAL: Abdomen
--- NOTE | 2021-06-02 09:30 | PM.IMPN ---
Progress Note: A&P Assessment and Plan (1) Enteritis: Code(s): K52.9 - Noninfective gastroenteritis and colitis, unspecified Status: Acute Assessment and Plan: Possibly secondary to medication(diclofenac ) versus viral or bacterial infection Lactic acid elevated 4.6> 1.3 WBCs within normal limits CT of the abdomen no significant findings Patient started on Cipro along with Flagyl C. difficile came back Negative Continue Zofran diclofenac recently started by primary care physician for chronic back pain Started on a clear liquid diet Started Cholestyramine today BID consider sending home but was nauseated with diarrhea after eating with abdominal pain . Will plan on discharge tomorrow. (2) Chronic neck pain: Code(s): M54.2 - Cervicalgia; G89.29 - Other chronic pain Status: Chronic Assessment and Plan: Patient recently started on diclofenac sodium Continue Flexeril Continue pain medication Will hold diclofenac sodium (3) Chronic low back pain: Code(s): M54.5 - Low back pain; G89.29 - Other chronic pain Status: Acute Assessment and Plan: Patient recently started on diclofenac sodium Continue Flexeril Continue pain medication Will hold diclofenac sodium (4) Hypertension: Code(s): I10 - Essential (primary) hypertension Status: Acute Assessment and Plan: Stable Continue hctz vs as ordered Will adjust medication as needed (5) Hypercholesteremia: Code(s): E78.00 - Pure hypercholesterolemia, unspecified Status: Acute Assessment and Plan: Continue statins (6) GERD (gastroesophageal reflux disease): Code(s): K21.9 - Gastro-esophageal reflux disease without esophagitis Status: Acute Assessment and Plan: Started pantoprazole (7) Bipolar 1 disorder: Code(s): F31.9 - Bipolar disorder, unspecified Status: Acute Assessment and Plan: Continue home medication (8) Asthma: Code(s): J45.909 - Unspecified asthma, uncomplicated Status: Acute Assessment and Plan: Continue albuterol (9) Acute kidney injury: Code(s): N17.9 - Acute kidney failure, unspecified Status: Acute Assessment and Plan: Creatinine slightly elevated will trend Possibly secondary to nausea vomiting and diarrhea Will closely monitor creatinine level Subjective Date/time seen: 06/02/21 09:30 this is a 60-year-old with some colitis that has been noted she still having diarrhea and she was unable to drink all of her clear liquid. So we will continue on clear liquid and started on some Cholestyramine to see if this helps patient better and attempt for her to have some formed stool. Exam Narrative: GENERAL: This is a well-nourished, well-developed patient, in no apparent distress. feeling weak HEAD: normocephalic, atraumatic. EYES: PERRL. Sclera clear/white. Vision is grossly intact. EARS: External ears normal, auditory canals clear and without drainage, TMs normal without perforation. Hearing grossly intact. NOSE: External nose normal with no obvious nasal discharge, nares without redness, no rhinorrhea. THROAT: Mucous membranes moist, posterior pharynx clear. NECK: Neck supple, non-tender without lymphadenopathy, masses or thyromegaly. CARDIOVASCULAR: Regular rate and rhythm, gallops, or rubs. RESPIRATORY: Clear to auscultation. Breath sounds equal bilaterally. No wheezes, rales, or rhonchi. GASTROINTESTINAL: Abdomen soft, tenderness to the left upper and lower quadrant, nondistended. Bowel sounds are active. No hepato-splenomegaly, or palpable masses. SKIN: warm, intact with no suspicious lesions or rash, good texture and turgor. NEURO: awake, alert, and oriented to person, place and time. There were no obvious focal neurologic abnormalities. Steady gait EXTREMITIES: Normal range of motion. No edema. No calf tenderness. Negative Homans sign bilaterally. BACK:
[2021-06-02] MEDS: metroNIDAZOLE 250 MG TABLET 500 MG PO ×2 (14:06→21:29)
[2021-06-02 16:00] VITALS: BP 141/83; PULSE 78; RESP 18; TEMP 37.1; O2SAT 96
[2021-06-02] MEDS: CIPROFLOXACIN 500 MG TAB PO (21:30)
[2021-06-02 23:06] VITALS: BP 130/78; PULSE 69; RESP 16; TEMP 36.6; O2SAT 97
[2021-06-03] MEDS: HYDROmorphone HCL INJ (*CRX) 2 MG/ML VIAL 0.5 MG IV PUSH (00:16)
[2021-06-03] MEDS: metroNIDAZOLE 250 MG TABLET 500 MG PO (05:57)
[2021-06-03] MEDS: DICLOFENAC SOD 75 MG TABLET.EC PO (05:58)
[2021-06-03 07:50] VITALS: BP 149/90; PULSE 68; RESP 18; TEMP 36.2; O2SAT 98
[2021-06-03 07:52] LABS: Hematocrit 41.6 % (35.0-49.0); Hemoglobin 13.6 g/dL (12.0-15.0); Immature Platelet Fraction Pct 3.6 % (1.0-7.0); Mean Corpuscular HGB Conc 32.7 g/dL (32.0-36.0); Mean Corpuscular Hemoglobin 30.1 pg (27.0-31.0); Mean Platelet Volume 10.9 fl (9.2-11.8); Platelet Count Result 133 K/mm3 (150-420); Red Blood Count 4.52 M/mm3 (4.20-5.40); Red Cell Distribution Width 13.5 % (11.6-14.4); White Blood Count 3.5 K/mm3 (4.8-10.8)
[2021-06-03 07:59] LABS: Anion Gap 9 mmol/L (8-16); Blood Urea Nitrogen 5 mg/dL (7-18); Calcium 8.2 mg/dL (8.5-10.1); Carbon Dioxide 25 mmol/L (21-32); Chloride 107 mmol/L (98-108); Estimated CRCL calculation 66 ml/min; Estimated Glomerular Filt Rate > 60; Glucose 92 mg/dL (70-99); Osmolality Calculated 289 mOsm/kg (285-295); Potassium 3.5 mmol/L (3.5-5.1); Sodium 141 mmol/L (136-145)
[2021-06-03] MEDS: MIRABEGRON 25 MG ER TABLET PO (09:03)
[2021-06-03] MEDS: CHOLESTYRAMINE (W/ SUGAR) 4 GM POWD.PACK PO (09:03)
[2021-06-03] MEDS: PANTOPRAZOLE 40 MG TABLET PO (09:04)
[2021-06-03] MEDS: PARoxetine 20 MG TABLET BY MOUTH (09:04)
[2021-06-03] MEDS: ENOXAPARIN 40 MG/0.4 ML SYRINGE SUB-Q (09:04)
[2021-06-03] MEDS: POTASSIUM CHLORIDE 20 MEQ TABLET 40 MEQ PO (09:04)
[2021-06-03] MEDS: SACCHAROMYCES BOULARDII 250 MG CAPSULE PO (09:04)
[2021-06-03] MEDS: ROSUVASTATIN 10 MG TABLET BY MOUTH (09:04)
[2021-06-03] MEDS: LORATADINE 10 MG TABLET PO (09:04)
[2021-06-03] MEDS: FLUTICASONE PROPIONATE 0.05% NA SPR 16 GM BTL (*BKC) 1 SPRAY NASAL (09:05)
[2021-06-03] MEDS: hydroCHLOROthiazide 25 MG TABLET BY MOUTH (09:05)
[2021-06-03] MEDS: CIPROFLOXACIN 500 MG TAB PO (09:05)
--- NOTE | 2021-06-03 09:21 | PM.DS ---
DS: Admitting Diagnosis Discharge Date 06/03/2021 Admitting Diagnosis Gastroenteritis, Acute Kidney Injury DS: Discharge Diagnosis Discharge Diagnosis (1) Enteritis: Code(s): K52.9 - Noninfective gastroenteritis and colitis, unspecified Status: Acute Assessment and Plan: Possibly secondary to medication(diclofenac ) versus viral or bacterial infection Lactic acid elevated 4.6> 1.3 WBCs within normal limits CT of the abdomen no significant findings Patient started on Cipro along with Flagyl C. difficile came back Negative Continue Zofran diclofenac recently started by primary care physician for chronic back pain Started on a clear liquid diet Started Cholestyramine today BID consider sending home but was nauseated with diarrhea after eating with abdominal pain . Will plan on discharge today improving (2) UTI (urinary tract infection): Qualifiers: Hematuria presence: without hematuria Urinary tract infection type: acute cystitis Qualified Code(s): N30.00 - Acute cystitis without hematuria Code(s): N39.0 - Urinary tract infection, site not specified Status: Acute Assessment and Plan: continue Cipro Drink plent of fluids No bubble baths (3) Recurrent kidney stones: Code(s): N20.0 - Calculus of kidney Status: Acute Assessment and Plan: Follow up with Urology phone number given to schedule appointment (4) Chronic low back pain: Code(s): M54.5 - Low back pain; G89.29 - Other chronic pain Status: Acute Assessment and Plan: Patient recently started on diclofenac sodium Continue Flexeril Continue pain medication Will hold diclofenac sodium (5) Hypertension: Code(s): I10 - Essential (primary) hypertension Status: Acute Assessment and Plan: Stable Continue hctz vs as ordered Will adjust medication as needed (6) Acute kidney injury: Code(s): N17.9 - Acute kidney failure, unspecified Status: Acute Assessment and Plan: Creatinine slightly elevated will trend Possibly secondary to nausea vomiting and diarrhea Will closely monitor creatinine level Resolved (7) Chronic neck pain: Code(s): M54.2 - Cervicalgia; G89.29 - Other chronic pain Status: Chronic Assessment and Plan: Patient recently started on diclofenac sodium Continue Flexeril Continue pain medication Will hold diclofenac sodium (8) Hypercholesteremia: Code(s): E78.00 - Pure hypercholesterolemia, unspecified Status: Acute Assessment and Plan: Continue statins (9) GERD (gastroesophageal reflux disease): Code(s): K21.9 - Gastro-esophageal reflux disease without esophagitis Status: Acute Assessment and Plan: Started pantoprazole (10) Bipolar 1 disorder: Code(s): F31.9 - Bipolar disorder, unspecified Status: Acute Assessment and Plan: Continue home medication (11) Asthma: Code(s): J45.909 - Unspecified asthma, uncomplicated Status: Acute Assessment and Plan: Continue albuterol DS: Summary Hospital Course Reason for hospitalization: Acute Kidney injury, Gastroenteritis Hospital Course: This is a 60-year-old female that presented to the emergency room with complaints of abdominal pain diarrhea, nausea vomiting and stomach cramps. Patient has a past medical. On admission patient's WBCs WBCs 10.3, hemoglobin 16.0, hematocrit 48.9, platelets 200, sodium 135, potassium 3.1, BUN 14, creatinine 0.14, glucose 202, lactic acid 4.6, total bili 0.8, AST 27, ALT 30, lipase 227 UA indicates trace of blood COVID-negatihistory of kidney stones, hyperlipidemia, hypertension, chronic back pain, bipolar, depression, asthma, GERD, hypercholesteremia, chronic neck pain, bladder cancer, nicotine dependence. CT exam was negative for anything significant. Currently patient's potassium is 3.5, sodium 141, BUN is 5, creatinine
--- NOTE | 2021-06-03 09:21 | P.DS_ITS ---
DS: Admitting Diagnosis Discharge Date 06/03/2021 Admitting Diagnosis Gastroenteritis, Acute Kidney Injury DS: Discharge Diagnosis Discharge Diagnosis (1) Enteritis: Code(s): K52.9 - Noninfective gastroenteritis and colitis, unspecified Status: Acute Assessment and Plan: * Possibly secondary to medication(diclofenac ) versus viral or bacterial infection * Lactic acid elevated 4.6> 1.3 * WBCs within normal limits * CT of the abdomen no significant findings * Patient started on Cipro along with Flagyl * C. difficile came back Negative * Continue Zofran * diclofenac recently started by primary care physician for chronic back pain * Started on a clear liquid diet * Started Cholestyramine today BID * consider sending home but was nauseated with diarrhea after eating with abdominal pain . * Will plan on discharge today improving (2) UTI (urinary tract infection): Qualifiers: Hematuria presence: without hematuria Urinary tract infection type: acute cystitis Qualified Code(s): N30.00 - Acute cystitis without hematuria Code(s): N39.0 - Urinary tract infection, site not specified Status: Acute Assessment and Plan: continue Cipro Drink plent of fluids No bubble baths (3) Recurrent kidney stones: Code(s): N20.0 - Calculus of kidney Status: Acute Assessment and Plan: Follow up with Urology phone number given to schedule appointment (4) Chronic low back pain: Code(s): M54.5 - Low back pain; G89.29 - Other chronic pain Status: Acute Assessment and Plan: Patient recently started on diclofenac sodium * Continue Flexeril * Continue pain medication * Will hold diclofenac sodium (5) Hypertension: Code(s): I10 - Essential (primary) hypertension Status: Acute Assessment and Plan: * Stable * Continue hctz * vs as ordered * Will adjust medication as needed (6) Acute kidney injury: Code(s): N17.9 - Acute kidney failure, unspecified Status: Acute Assessment and Plan: * Creatinine slightly elevated will trend * Possibly secondary to nausea vomiting and diarrhea * Will closely monitor creatinine level * Resolved (7) Chronic neck pain: Code(s): M54.2 - Cervicalgia; G89.29 - Other chronic pain Status: Chronic Assessment and Plan: * Patient recently started on diclofenac sodium * Continue Flexeril * Continue pain medication * Will hold diclofenac sodium (8) Hypercholesteremia: Code(s): E78.00 - Pure hypercholesterolemia, unspecified Status: Acute Assessment and Plan: * Continue statins (9) GERD (gastroesophageal reflux disease): Code(s): K21.9 - Gastro-esophageal reflux disease without esophagitis Status: Acute Assessment and Plan: * Started pantoprazole (10) Bipolar 1 disorder: Code(s): F31.9 - Bipolar disorder, unspecified Status: Acute Assessment and Plan: * Continue home medication (11) Asthma: Code(s): J45.909 - Unspecified asthma, uncomplicated Status: Acute Assessment and Plan: * Continue albuterol DS: Summary Hospital Course Reason for hospitalization: Acute Kidney injury, Gastroenteritis Hospital Course: This is a 60-year-old female that presented to the emergency room with complaints of abdominal pain diarrhea, nausea vomiting and stomach c ramps. Patient has a past medical. On admission patient's WBCs WBCs 10.3, hemoglobin 16.0, hematocrit 48.9, platel
--- NOTE | 2021-06-03 10:50 | PC.NURSE ---
Patient discharging home. All discharge instructions and education reviewed with patient. Patient states understanding. Denies any questions. IV site discontinued, dressing applied to site. All belongings gathered together and sent with patient. Patient left ambulatory from floor, left via private vehicle with friend from [facility].
--- NOTE | 2021-06-04 13:59 | PC.NURSE ---
Invalid phone number for discharge call back.
== END 2021-06-03 10:50 | disposition home health service (06) | DRG 392 ==
LOC: CHSED 04:35 → CHS2ND 06:44
PROVIDERS: Nurse Practitioner; Nurse Practitioner Family; Admitting Provider Internal Medicine; Emergency Provider Emergency Medicine; PCP Nurse Practitioner Family; Visit Provider Internal Medicine
DX: K52.9 Noninfective gastroenteritis and colitis, unspecified (principal); N17.9 Acute kidney failure, unspecified; N39.0 Urinary tract infection, site not specified; I10 Essential (primary) hypertension; J45.909 Unspecified asthma, uncomplicated; N20.0 Calculus of kidney; K21.9 Gastro-esophageal reflux disease without esophagitis; E66.3 Overweight; E78.00 Pure hypercholesterolemia, unspecified; Z20.822 Contact with and (suspected) exposure to COVID-19; E78.2 Mixed hyperlipidemia; M54.50 Low back pain, unspecified; M54.2 Cervicalgia; G89.29 Other chronic pain; F31.9 Bipolar disorder, unspecified; Z85.51 Personal history of malignant neoplasm of bladder; Z87.442 Personal history of urinary calculi; Z87.891 Personal history of nicotine dependence
CPT/HCPCS: 36415; 74177; 80048; 80053; 81001; 83605; 83690; 83735; 85025; 85027; 85055; 87324; 87426; 96361; 96374; 96375; 96376; 99285; A9270; C9113; C9803; J0744; J1170; J1650; J1885; J2405; J3480; J7030; Q9967

== ENCOUNTER 2021-06-25 07:18 | Outpatient (CLI) | payer OTHER, SELFPAY ==
--- NOTE | ~2021-06-25 | XR_ITS ---
XR lumbar spine 2-3V 06/25/2021 08:10 Indication: Low back pain Procedure: 3 views lumbar spine Comparison: 01/27/2009 Findings: There is a small 2-3 mm right renal stone. Nonobstructive bowel gas pattern. There is disc narrowing at L3-4. There is facet hypertrophy at L3-4, L4-5 and L5-S1. There is atherosclerosis of th e aorta. No acute fracture or traumatic malalignment. Pedicles intact. There are. A radiodensities in the right lower abdomen, consistent with bowel content. Impression: 1: Mild lumbar spondylosis. 2: Right nephrolithiasis. Reviewed, dictated and finalized at location D. Impression: 1: Mild lumbar spondylosis. 2: Right nephrolithiasis.
--- NOTE | ~2021-06-25 | XR_ITS ---
XR thoracic spine 2V 06/25/2021 08:10 Indication: Back pain Procedure: 3 views thoracic spine Comparison: 08/04/2017 Findings: Vertebral body heights are maintained. Mild dextrocurvature of the thoracic spine. No melly elba soft tissue abnormality. Pedicles intact. No fracture, subluxation or dislocation. Impression: 1: No acute abnormality of the thoracic spine. Mild dextrocurvature of the T-spine centered at T10. Reviewed, dictated and finalized at location D. Impression: 1: No acute abnormality of the thoracic spine. Mild dextrocurvature of the T-sp ine centered at T10.
== END 2021-06-25 07:19 | disposition home or self-care (01) ==
LOC: CHSIMG 07:22
PROVIDERS: PCP Nurse Practitioner Family; Visit Provider Nurse Practitioner Family
DX: M54.50 Low back pain, unspecified (principal); G89.29 Other chronic pain
CPT/HCPCS: 72070; 72100

== ENCOUNTER 2021-07-06 07:53 | Outpatient (RCR) | payer OTHER, SELFPAY ==
--- NOTE | 2021-07-06 07:44 | PTOPEVAL ---
Thank you for referring Arlet Blake to [facility].? The patient is scheduled to be seen for therapy? ____x/week for ___ weeks. Please review, sign, date and return this plan of care KIEL. I agree with and certify that the following plan of care is medically necessary. Referring Physician Date Admitting Provider: Attending Provider: Sara Irene NP Referring Provider: ADA Outpatient Evaluation Start: 07/06/21 07:02 Freq: Status: Active Protocol: Document 07/06/21 07:05 MIGUEL ANGEL (Rec: 07/06/21 07:44 MIGUEL ANGEL [email or web address]) Therapy Assessment Status Assessment Status Assessment Status Evaluation Outpatient Past Medical History Cardiovascular History Hx Hypercholesterolemia Yes Hx Hypertension Yes Respiratory History Hx Asthma Yes Hx Pneumonia Yes: years ago Gastrointestinal History Hx Gastroesophageal Reflux Disease Yes Genitourinary History Hx Bladder Surgery Yes Hx Kidney Stones Yes Hx Urinary Tract Infection Yes Musculoskeletal History Hx Back Injury Yes Hx Back Pain Yes Hematological History Hx Hematological Disorders No Significant History Endocrine History Hx Endocrine Disorders No Significant History HEENT History Hx Cataracts Yes: Both eyes cataract surgery Hx Sinus Problems Yes Integumentary History Hx Skin Disorders No Significant History Reproductive History Hx Fibroids Yes Hx Post Menopausal Yes Psychosocial History Hx Anxiety Yes Hx Bipolar Disorder Yes Hx Depression Yes Pain History Has Past Pain Affected Your Daily Life Yes Effective Methods of Pain Control use cannabis and ibuprofen for pain relief; Anesthesia History Hx Other Anesthesia Reactions Yes: difficulty waking up after anesthesia Other History Hx Cancer Yes: Bladder Evaluation Information Problem Diagnosis lumbago Onset 06/24/21 Additional Evaluation Detail oswestry = 40% functionally declined Subjective Information patient reports she has had Query Text:As Reported By Patient/ pain in her lower back since Family 1999. she reports she has also had pain in her neck since prior to then. however, she reports she has just found out she has narrowing in her spine. she reports more recently s
--- NOTE | 2021-07-29 13:35 | PTOPEVAL ---
Thank you for referring Arlet Blake to [facility].? The patient is scheduled to be seen for therapy? ____x/week for ___ weeks. Please review, sign, date and return this plan of care KIEL. I agree with and certify that the following plan of care is medically necessary. Referring Physician Date Admitting Provider: Attending Provider: Sara Irene NP Referring Provider: *PT Outpatient Evaluation Start: 07/06/21 07:02 Freq: Status: Active Protocol: Document 07/29/21 08:00 MIGUEL ANGEL (Rec: 07/29/21 09:04 MIGUEL ANGEL [id number]) Therapy Assessment Status Assessment Status Assessment Status Discharge Outpatient Past Medical History Cardiovascular History Hx Hypercholesterolemia Yes Hx Hypertension Yes Respiratory History Hx Asthma Yes Hx Pneumonia Yes: years ago Gastrointestinal History Hx Gastroesophageal Reflux Disease Yes Genitourinary History Hx Bladder Surgery Yes Hx Kidney Stones Yes Hx Urinary Tract Infection Yes Musculoskeletal History Hx Back Injury Yes Hx Back Pain Yes Hematological History Hx Hematological Disorders No Significant History Endocrine History Hx Endocrine Disorders No Significant History HEENT History Hx Cataracts Yes: Both eyes cataract surgery Hx Sinus Problems Yes Integumentary History Hx Skin Disorders No Significant History Reproductive History Hx Fibroids Yes Hx Post Menopausal Yes Psychosocial History Hx Anxiety Yes Hx Bipolar Disorder Yes Hx Depression Yes Pain History Has Past Pain Affected Your Daily Life Yes Effective Methods of Pain Control use cannabis and ibuprofen for pain relief; Anesthesia History Hx Other Anesthesia Reactions Yes: difficulty waking up after anesthesia Other History Hx Cancer Yes: Bladder Evaluation Information Problem Diagnosis lumbago Onset 06/24/21 Additional Evaluation Detail oswestry = 20% functionally declined Subjective Information Pt reports that her back is Query Text:As Reported By Patient/ feeling better. She says that Family she is able to stand for longer with less pain and she is able to go from sitting to standing as well as standing to sitting with less difficulty. She also says that she can wa
--- NOTE | 2021-07-29 13:55 | PTOPEVAL ---
Thank you for referring Arlet Blake to [facility].? The patient is scheduled to be seen for therapy? ____x/week for ___ weeks. Please review, sign, date and return this plan of care KIEL. I agree with and certify that the following plan of care is medically necessary. Referring Physician Date Admitting Provider: Attending Provider: Sara Irene NP Referring Provider: *PT Outpatient Evaluation Start: 07/06/21 07:02 Freq: Status: Active Protocol: Document 07/29/21 08:00 MIGUEL ANGEL (Rec: 07/29/21 09:04 MIGUEL ANGEL [email or web address]) Therapy Assessment Status Assessment Status Assessment Status Re-evaluation Outpatient Past Medical History Cardiovascular History Hx Hypercholesterolemia Yes Hx Hypertension Yes Respiratory History Hx Asthma Yes Hx Pneumonia Yes: years ago Gastrointestinal History Hx Gastroesophageal Reflux Disease Yes Genitourinary History Hx Bladder Surgery Yes Hx Kidney Stones Yes Hx Urinary Tract Infection Yes Musculoskeletal History Hx Back Injury Yes Hx Back Pain Yes Hematological History Hx Hematological Disorders No Significant History Endocrine History Hx Endocrine Disorders No Significant History HEENT History Hx Cataracts Yes: Both eyes cataract surgery Hx Sinus Problems Yes Integumentary History Hx Skin Disorders No Significant History Reproductive History Hx Fibroids Yes Hx Post Menopausal Yes Psychosocial History Hx Anxiety Yes Hx Bipolar Disorder Yes Hx Depression Yes Pain History Has Past Pain Affected Your Daily Life Yes Effective Methods of Pain Control use cannabis and ibuprofen for pain relief; Anesthesia History Hx Other Anesthesia Reactions Yes: difficulty waking up after anesthesia Other History Hx Cancer Yes: Bladder Evaluation Information Problem Diagnosis lumbago Onset 06/24/21 Additional Evaluation Detail oswestry = 20% functionally declined Subjective Information Pt reports that her back is Query Text:As Reported By Patient/ feeling better. She says that Family she is able to stand for longer with less pain and she is able to go from sitting to standing as well as standing to sitting with less difficulty. She also says that she ca
--- NOTE | 2021-11-09 07:38 | PCPTNOTE ---
ami has not been to therapy since her re-evaluation back in July. as of this date, she will be dc'd from skilled PT due to lack of return to finish POC. MIGUEL ANGEL
== END 2021-07-29 23:59 | disposition home or self-care (01) ==
LOC: CHSPT 07:53
PROVIDERS: PCP Nurse Practitioner Family; Visit Provider Nurse Practitioner Family
DX: M54.50 Low back pain, unspecified (principal); G89.29 Other chronic pain
CPT/HCPCS: 97014; 97110; 97112; 97161; 97530; G0283

== ENCOUNTER 2021-09-07 01:12 | Emergency (ER) | payer OTHER, SELFPAY ==
--- NOTE | 2021-09-07 01:28 | ED.GENADULT ---
HPI - General Adult General Chief complaint: Nausea/Vomiting/Diarrhea Stated complaint: Vomiting History of Present Illness HPI narrative: This is a 60-year-old female with history of cannabinoid hyperemesis syndrome presently any nausea vomiting diarrhea. The patient says her symptoms started acutely approximately an hour to help. Patient is also describing diffuse 10/10 abdominal pain that is worse vomiting. Patient has had almost continuous vomiting since her symptoms started. She has also had several episodes of nonbloody diarrhea. Patient states this happened multiple times in the past and typically Haldol helps. She denies fever, chest pain, difficulty breathing, urinary symptoms, flank pain that she relat Related Data Allergies Allergy/AdvReac Type Severity Reaction Status Date / Time codeine Allergy Intermediate Unknown Verified 09/07/21 02:04 morphine Allergy Intermediate Unknown Verified 09/07/21 02:04 Penicillins Allergy Intermediate Unknown Verified 09/07/21 02:04 methylprednisolone AdvReac Unknown Verified 09/07/21 02:04 Review of Systems Constitutional: Constitutional: Reports chills Eyes: Eyes: Denies change in vision ENT: Denies dysphagia Cardiovascular: Cardiovascular: Denies chest pain Respiratory: Respiratory: Denies chest congestion Gastrointestinal: Gastrointestinal: Reports abdominal pain Genitourinary: Genitourinary: Denies abnormal vaginal bleeding Musculoskeletal: Musculoskeletal: Denies back pain Integumentary/Breasts: Skin/Breast: Denies breast pain Neurologic: Denies confusion Psychiatric: Psychiatric: Reports anxiety Endocrine: Endocrine: Denies excessive sweating Hematologic/Lymphatic: Hematologic/Lymphatic: Denies easy bleeding Allergic/Immunologic: Allergic/Immunologic: Denies lip swelling PMFSH Past Medical History Medical History Asthma Bipolar 1 disorder Bladder cancer Chronic low back pain Chronic neck pain GERD (gastroesophageal reflux disease) Hypercholesteremia Hypertension Nicotine dependence in remission Nocturnal leg cramps Overweight (BMI 25.0-29.9) Surgical History Surgical History Bladder tumor Tumor Removal 2011 H/O nephrolithotomy with removal of calculi x2 on right and x3 on left; History of hysterectomy (~1999) LIBERTAD BSO Hx of cataract surgery (~2014) Hx of tonsillectomy (~1966) Family History Family History Mother Family history of coronary artery disease Father Family history of coronary artery disease Brother Family history of coronary artery disease Social History Social History Smoking packs per day: 1 Smoking cigarettes per day: 20.0 Years smoked: 30 Smoking pack-years: 30.00 Smoking status: Former smoker Tobacco type: cigarettes Second hand tobacco smoke exposure: Yes Additional smoking assessment comments: Quit 30 pack-year history Alcohol intake: never Substance use: current Substance use type: marijuana Other substance usage details: pain control for 2 crushed discs in back Last use: last week Additional living arrangements comments: . No children. Additional occupation/education comments: Prior Occupation: [employer]. Gender identity (if verbalized by the patient): Female Spiritual care concerns: No Exam Narrative: Patient is rolling back and forth the bed with loud dry heaving. She appears older than her stated age. She is covered in urine and feces. HENMT: Head: normal to inspection Eyes: Conjunctivae: conjunctivae normal Neck: Neck: normal visual inspection Chest: Chest palpation & inspection: normal inspection of the chest Resp: Effort & Inspection: normal respiratory effort Cardio: Rate: regular rate Rhythm: regular rhythm GI: GI Palp:
[2021-09-07 01:29] VITALS: BP 177/88; PULSE 79; RESP 22; TEMP 36.8; O2SAT 94
[2021-09-07] MEDS: ONDANSETRON INJ 4 MG/2 ML VIAL 8 MG IV PUSH (01:33)
[2021-09-07] MEDS: HALOPERIDOL LACTATE 5 MG/ML VIAL IV PUSH ×2 (01:33→03:43)
[2021-09-07] MEDS: SODIUM CHLORIDE 0.9% IV 2,000 ML 999 ML IV CONT (01:34)
[2021-09-07] MEDS: FAMOTIDINE 20 MG/2 ML VIAL IV PUSH (01:34)
[2021-09-07 01:45] VITALS: BP 146/100; BP 152/77; PULSE 74; PULSE 81; RESP 17; RESP 18; TEMP 36.4; O2SAT 98
[2021-09-07 02:12] LABS: Basophils Absolute Auto 0.06 K/mm3 (0.00-0.10); Basophils Percent Auto 0.6 % (0.0-1.0); Eosinophils Absolute Auto 0.11 K/mm3 (0.02-0.50); Eosinophils Percent Auto 1.1 % (1.0-6.0); Hematocrit 43.3 % (35.0-49.0); Hemoglobin 14.1 g/dL (12.0-15.0); Immature Granulocyte Absolute 0.04 K/mm3 (0.00-0.00); Immature Granulocyte Percent A 0.4 % (0.0-0.0); Lymphocytes Absolute Auto 1.53 K/mm3 (1.10-4.50); Lymphocytes Percent Auto 15.5 % (18.0-42.0); Mean Corpuscular HGB Conc 32.6 g/dL (32.0-36.0); Mean Corpuscular Hemoglobin 30.7 pg (27.0-31.0); Mean Corpuscular Volume 94.1 fL (78.0-102.0); Mean Platelet Volume 10.9 fl (9.2-11.8); Monocytes Absolute Auto 0.58 K/mm3 (0.10-0.90); Monocytes Percent Auto 5.9 % (2.0-11.0); Neutrophils Absolute Auto 7.5 K/mm3 (1.7-7.2); Neutrophils Percent Auto 76.5 % (50.0-70.0); Platelet Count Result 152 K/mm3 (150-420); Red Cell Distribution Width 13.7 % (11.6-14.4); White Blood Count 9.9 K/mm3 (4.8-10.8)
[2021-09-07 02:27] LABS: Alanine Aminotransferase 23 U/L (14-59); Albumin Level 3.9 g/dL (3.4-5.0); Alkaline Phosphatase 131 U/L (46-116); Anion Gap 11 mmol/L (8-16); Aspartate Amino Transferase 16 U/L (15-37); Bilirubin,Total 0.3 mg/dL (0.00-1.00); Blood Urea Nitrogen 24 mg/dL (7-18); Calcium 8.6 mg/dL (8.5-10.1); Carbon Dioxide 24 mmol/L (21-32); Chloride 107 mmol/L (98-108); Estimated CRCL calculation 51 ml/min; Estimated Glomerular Filt Rate > 60; Glucose 152 mg/dL (70-99); Lipase 55 U/L (73-393); Osmolality Calculated 301 mOsm/kg (285-295); Potassium 3.5 mmol/L (3.5-5.1); Sodium 142 mmol/L (136-145); Total Protein 7.2 g/dL (6.4-8.2)
[2021-09-07 02:29] LABS: Ethanol < 3 mg/dL (0-6)
[2021-09-07 02:35] LABS: Add Urine Microscopic? NO; Appearance Urine Clear (Clear); Bilirubin Urine Negative (Negative); Blood Urine Negative (Negative); Color Urine Light Yellow (Yellow); Glucose Urine UA Negative (Negative); Ketones Urine Negative (Negative); Leukocyte Esterase Ur Negative (Negative); Nitrate Urine Negative (Negative); Protein Urine Negative (Negative); Urobilinogen Urine 0.2 mg/dL (0.2-1.0); pH Urine 5.5 (5.0-8.0)
--- NOTE | 2021-09-07 03:40 | PC.NURSE ---
pt reporting feeling nauseous. md carrasquillo updated, see news medication orders
[2021-09-07] MEDS: diphenhydrAMINE HCl INJ 50 MG/ML VIAL 25 MG IV PUSH (03:43)
--- NOTE | 2021-09-07 04:22 | PC.NURSE ---
pt requested that a friend be called for a ride home, Friend called [phone] is coming to the ER to transport pt home.
[2021-09-07 04:24] VITALS: BP 157/76; PULSE 79; RESP 16; TEMP 36.5; O2SAT 93
== END 2021-09-07 04:45 | disposition home or self-care (01) ==
PROVIDERS: Emergency Provider Emergency Medicine; PCP Nurse Practitioner Family
DX: R11.15 Cyclical vomiting syndrome unrelated to migraine (principal); K21.9 Gastro-esophageal reflux disease without esophagitis; E78.00 Pure hypercholesterolemia, unspecified; I10 Essential (primary) hypertension; M54.50 Low back pain, unspecified; M54.2 Cervicalgia; G89.29 Other chronic pain; Z87.891 Personal history of nicotine dependence; Z85.51 Personal history of malignant neoplasm of bladder
CPT/HCPCS: 36415; 80053; 80307; 81003; 83690; 85025; 96361; 96374; 96375; 96376; 99284; J1200; J1630; J2405; J7030

== ENCOUNTER 2021-10-01 09:37 | Outpatient (CLI) | payer OTHER, SELFPAY ==
--- NOTE | ~2021-10-01 | XR_ITS ---
EXAMINATION: XR chest 2V 10/01/2021 09:58 INDICATION: Chest pain. Pleurisy. PROCEDURE: 2 view chest COMPARISON: 04/29/2016 FINDINGS: The lungs are clear. The cardiomediastinal silhouette is within normal limits. There are no pleural effusions. There is no pneumothorax suspected. IMPRESSION: 1: NO ACUTE CARDIOPULMONARY DISEASE. Reviewed, dictated and finalized at location A.
== END 2021-10-01 09:38 | disposition home or self-care (01) ==
LOC: CHSIMG 09:39
PROVIDERS: PCP Nurse Practitioner Family; Visit Provider Nurse Practitioner Family
DX: R07.89 Other chest pain (principal)
CPT/HCPCS: 71046

== ENCOUNTER 2022-02-15 07:47 | Outpatient (CLI) | payer OTHER, SELFPAY ==
--- NOTE | ~2022-02-15 | XR_ITS ---
EXAMINATION: XR soft tissue neck DATE: 02/15/2022 08:02 INDICATION: Acute pharyngitis. TECHNIQUE: 2 views of the neck soft tissues on 3 radiographs were obtained. COMPARISON: None. FINDINGS: The adenoids are enlarged. The epiglottis, palatine tonsils, prevertebral soft tissues, and glottis are normal. IMPRESSION: 1. Enlarged adenoids. Reviewed, dictated and finalized at location A. [employer] IMPRESSION: 1. Enlarged adenoids.
== END 2022-02-15 07:48 | disposition home or self-care (01) ==
LOC: CHSIMG 07:48
PROVIDERS: PCP Nurse Practitioner Family; Visit Provider Nurse Practitioner Family
DX: J02.9 Acute pharyngitis, unspecified (principal); J35.2 Hypertrophy of adenoids
CPT/HCPCS: 70360

== ENCOUNTER 2022-02-17 00:57 | Day surgery (SDC) | payer OTHER, SELFPAY ==
--- NOTE | 2022-02-16 09:23 | WPDANESEPPF ---
Anes - Initial Pre Proc Eval Procedure: Operation Date: 02/17/22 07:30 Proposed Procedures p Screening Colonoscopy - Andrew Doe DO Date/Time: 02/16/22 09:23 Surgeon: Andrew Doe DO Pre Op Diagnosis: Hx of colon polyp Patient Data Age: 61 Gender: F Height: 1.57 m Weight: 68.18 kg Allergies Allergy/AdvReac Type Severity Reaction Status Date / Time codeine Allergy Intermediate Unknown Verified 02/17/22 06:22 morphine Allergy Intermediate Unknown Verified 02/17/22 06:22 Penicillins Allergy Intermediate Unknown Verified 02/17/22 06:22 methylprednisolone AdvReac Unknown Verified 02/17/22 06:22 Home Medications Medication Instructions Recorded Confirmed Type hydrochlorothiazide 25 mg tablet See Rx Instructions .Route 05/26/21 02/14/22 Rx .COMPLEX #90 tabs paroxetine HCl 20 mg tablet See Rx Instructions .Route 05/26/21 02/14/22 Rx .COMPLEX #90 tabs rosuvastatin 20 mg tablet See Rx Instructions .Route 05/26/21 02/14/22 Rx .COMPLEX #90 tabs loratadine 10 mg tablet See Rx Instructions .Route 08/23/21 02/14/22 Rx .COMPLEX #90 tabs mirabegron 25 mg tablet,extended See Rx Instructions .Route 08/23/21 02/14/22 Rx release 24 hr (Myrbetriq) .COMPLEX #90 tabs albuterol sulfate 90 mcg/actuation 1 puff inhalation Q4H PRN asthma 09/09/21 02/14/22 Rx aerosol inhaler (ProAir HFA) #18 grams diclofenac sodium 50 mg See Rx Instructions .Route 09/13/21 02/14/22 Rx tablet,delayed release .COMPLEX #60 tabs potassium chloride 20 mEq 40 meq PO DAILY@0800 #6 tabs 09/22/21 02/14/22 Rx tablet,extended release (K-Tab) ondansetron 4 mg disintegrating 8 mg PO Q6H PRN nausea and 10/01/21 02/14/22 Rx tablet vomiting #20 tabs montelukast 10 mg tablet 10 mg PO DAILY #90 tabs 11/15/21 02/14/22 Rx fluticasone propionate 50 See Rx Instructions .Route 11/28/22 01/09/23 Rx mcg/actuation nasal .COMPLEX #16 mL spray,suspension Patient hx anesthesia problems: none Family hx anesthesia problems: none Results Review: All pre-operative results and documents have been reviewed as part of the pre-operative evaluation. [facility] Past Medical History Medical History Asthma Bipolar 1 disorder Bladder cancer Chronic low back pain Chronic neck pain GERD (gastroesophageal reflux disease) Hypercholesteremia Hypertension Nicotine dependence in remission Nocturnal leg cramps Overweight (BMI 25.0-29.9) Surgical History Surgical History Bladder tumor Tumor Removal 2011 H/O nephrolithotomy with removal of calculi x2 on right and x3 on left; History of hysterectomy (~1999) LIBERTAD BSO Hx of cataract surgery (~2014) Hx of tonsillectomy (~1966) Family History Family History Mother Family history of coronary artery disease Father Family history of coronary artery disease Brother Family history of coronary artery disease Social History Social History Smoking packs per day: 1 Smoking cigarettes per day: 20.0 Years smoked: 30 Smoking pack-years: 30.00 Smoking status: Former smoker Tobacco type: cigarettes Second hand tobacco smoke exposure: Yes Additional smoking assessment comments: Quit 2013. 30 pack-year history Alcohol intake: never Substance use: current Substance use type: marijuana Other substance usage details: pain control for 2 crushed discs in back Last use: last week Lack of Transportation: No Lack of Food: Never True Current Housing: I Have Housing Concerned About Future Housing: No Difficulty Paying Gas/Electric Bills: No Difficulty Paying for Meds: No Currently Unemployed: No Education: Don't Know Difficulty w/ Childcare or Family Care: No Living arrangements: with family Additional living arrangements comme
[2022-02-17 06:23] VITALS: BP 151/83; PULSE 85; RESP 18; TEMP 36.3; O2SAT 99
[2022-02-17] MEDS: LACTATED RINGERS 1,000 ML 150 ML IV CONT (06:34)
--- NOTE | 2022-02-17 07:31 | PM.IMHP ---
H&P: HPI History of Present Illness Date/Time: 02/17/22 07:31 Chief Complaint: History of colon polyps Narrative: this is a 61-year-old woman who presents for colonoscopy. Her last colonoscopy was 5 years ago. She has a history of colon polyps. She denies any hematochezia or melena. She denies any family history of colon cancer. Review of Systems Review of Systems: All systems reviewed & are unremarkable except as noted in HPI and below Constitutional: Constitutional: Denies chills, Denies fever(s), Denies headache(s) and Denies weight loss Eyes: Eyes: Denies change in vision ENT: Denies dizziness, Denies headache(s), Denies neck mass and Denies throat swelling Cardiovascular: Cardiovascular: Denies chest pain, Denies lightheadedness and Denies dyspnea Respiratory: Respiratory: Denies cough, Denies dyspnea and Denies wheezing Gastrointestinal: Gastrointestinal: Denies abdominal pain, Denies change in bowel habits, Denies nausea and Denies vomiting Genitourinary: Genitourinary: Denies hematuria and Denies dysuria Musculoskeletal: Musculoskeletal: Reports as per HPI Integumentary/Breasts: Skin/Breast: Reports as per HPI Neurologic: Denies dizziness and Denies headache(s) Allergic/Immunologic: Allergic/Immunologic: Denies throat swelling and Denies wheezing PMFSH Past Medical History Medical History Asthma Bipolar 1 disorder Bladder cancer Chronic low back pain Chronic neck pain GERD (gastroesophageal reflux disease) Hypercholesteremia Hypertension Nicotine dependence in remission Nocturnal leg cramps Overweight (BMI 25.0-29.9) Surgical History Surgical History Bladder tumor Tumor Removal 2011 H/O nephrolithotomy with removal of calculi x2 on right and x3 on left; History of hysterectomy (~1999) LIBERTAD BSO Hx of cataract surgery (~2014) Hx of tonsillectomy (~1966) Family History Family History Mother Family history of coronary artery disease Father Family history of coronary artery disease Brother Family history of coronary artery disease Social History Social History Smoking packs per day: 1 Smoking cigarettes per day: 20.0 Years smoked: 30 Smoking pack-years: 30.00 Smoking status: Former smoker Tobacco type: cigarettes Second hand tobacco smoke exposure: Yes Additional smoking assessment comments: Quit 2012. 30 pack-year history Alcohol intake: never Substance use: current Substance use type: marijuana Other substance usage details: pain control for 2 crushed discs in back Last use: last week Lack of Transportation: No Lack of Food: Never True Current Housing: I Have Housing Concerned About Future Housing: No Difficulty Paying Gas/Electric Bills: No Difficulty Paying for Meds: No Currently Unemployed: No Education: Don't Know Difficulty w/ Childcare or Family Care: No Living arrangements: with family Additional living arrangements comments: . No children. Additional occupation/education comments: Prior Occupation: [employer]. Gender identity (if verbalized by the patient): Female Spiritual care concerns: No Meds Home Medications and Allergies Home Medications Medication Instructions Recorded Confirmed Type hydrochlorothiazide 25 mg tablet See Rx Instructions .Route 05/26/21 02/14/22 Rx .COMPLEX #90 tabs paroxetine HCl 20 mg tablet See Rx Instructions .Route 05/26/21 02/14/22 Rx .COMPLEX #90 tabs rosuvastatin 20 mg tablet See Rx Instructions .Route 05/26/21 02/14/22 Rx .COMPLEX #90 tabs loratadine 10 mg tablet See Rx Instructions .Route 08/23/21 02/14/22 Rx .COMPLEX #90 tabs mirabegron 25 mg tablet,extended See Rx Instructions .Route 08/23/21 02/14/22 Rx release 24 hr (Compa
[2022-02-17 07:52] VITALS: BP 119/86; PULSE 84; RESP 19; O2SAT 100
[2022-02-17 08:02] VITALS: BP 116/58; PULSE 77; RESP 19; O2SAT 100
[2022-02-17 08:12] VITALS: BP 144/78; PULSE 73; RESP 17; O2SAT 100
== END 2022-02-17 08:18 | disposition home or self-care (01) ==
PROVIDERS: PCP Nurse Practitioner Family; Visit Provider Surgery
PROC: 0DJD8ZZ Inspection of Lower Intestinal Tract, Via Natural or Artificial Opening Endoscopic (ICD-10-PCS; CPT 45378; principal; 2022-02-17 07:30)
DX: Z12.11 Encounter for screening for malignant neoplasm of colon (principal); K64.8 Other hemorrhoids; Z86.010 Personal history of colon polyps; J45.909 Unspecified asthma, uncomplicated; F31.9 Bipolar disorder, unspecified; K21.9 Gastro-esophageal reflux disease without esophagitis; I10 Essential (primary) hypertension; E78.00 Pure hypercholesterolemia, unspecified; Z79.51 Long term (current) use of inhaled steroids; Z87.891 Personal history of nicotine dependence; F12.90 Cannabis use, unspecified, uncomplicated
CPT/HCPCS: G0105; J2704; J7120

== ENCOUNTER 2022-08-11 07:44 | Outpatient (CLI) | payer OTHER, SELFPAY ==
--- NOTE | 2022-08-11 08:16 | ECG_ITS ---
Measurements Intervals [place] Rate: 65 P: 57 DE: 123 QRS: 28 QRSD: 78 T: 52 QT: 400 QTc: 416 Interpretive Statements SINUS RHYTHM BASELINE ARTIFACT- I, II, III NORMAL ECG NO PREVIOUS ECG AVAILABLE FOR COMPARISON Electronically Signed On 08-11-2022 9:01:08 CDT by Harvinder Gaytan D.O.
[2022-08-11 08:37] LABS: Anion Gap 4 mmol/L (8-16); Blood Urea Nitrogen 16 mg/dL (7-17); Calcium 9.3 mg/dL (8.4-10.2); Carbon Dioxide 31 mmol/L (22-30); Chloride 102 mmol/L (98-107); Estimated Glomerular Filt Rate > 60; Glucose 100 mg/dL (65-110); Potassium 4.7 mmol/L (3.4-5.0); Sodium 137 mmol/L (137-145)
== END 2022-08-11 07:45 | disposition home or self-care (01) ==
PROVIDERS: Anesthesiology; PCP Nurse Practitioner Family; Visit Provider Otolaryngology
DX: Z01.812 Encounter for preprocedural laboratory examination (principal); Z01.810 Encounter for preprocedural cardiovascular examination; I10 Essential (primary) hypertension; E78.00 Pure hypercholesterolemia, unspecified
CPT/HCPCS: 36415; 80048; 93005

== ENCOUNTER 2022-08-16 01:36 | Day surgery (SDC) | payer OTHER, SELFPAY ==
[2022-08-08 13:00] VITALS: BMI 27.4
--- NOTE | 2022-08-08 13:00 | PC.NURSE ---
Report to the Outpatient Waiting Room, entrance under the green pavilion located off [facility], at time _0930_ on date _08-16-2022_. Planned Procedure Time: _1130_. Time changes happen often and if your time is changed the preop area will call you the afternoon before. - You and your visitor will be asked to self-screen and do not enter if you have any COVID symptoms. - A mask is optional within the hospital at this time. Patients may have clear liquids (water, carbonated beverages, clear teas, apple juice) until 3 hours prior to surgery with a maximum of 20 ounces. - No food from midnight until time of surgery Take the following medications with a SIP of water the morning of surgery: ___Nebulizer, Symbicort and flonase. DO NOT STOP ANY OF YOUR OTHER PRESCRIPTION MEDICATIONS PRIOR TO SURGERY ?EXCEPT THE FOLLOWING Medications to discontinue per physician ____None Date to take last dose Please no make-up, nail arabic, hairspray, perfume, deodorant, or body powder the day of surgery. No jewelry (including any body piercings) or valuables the day of surgery, leave them at home. Please take a shower or bath the night before, or the morning of, surgery with an antibacterial soap. Wear comfortable, loose fitting clothing. - Jewelry must be removed prior to entering the operating room. Rings and piercings that are not removed may be cut off. - The hospital will not accept responsibility for valuables. - Please leave all valuables, including medications, at home the day of surgery. If you are going home after surgery, a licensed cement mixer driver must drive you home. - NO public transportation without another adult if you receive anesthesia. - We recommend that an adult stay with you for 24 hours following discharge. - We also recommend that you do not drive, make important decision, drink alcoholic beverages, or take any drugs that were not prescribed by your health care provider for at least 24 hours after your discharge time. Follow any additional instructions given to you from your surgeon. If you or anyone in your household have experienced Covid symptoms in the past week, please notify your surgeon or the nurse liaison at the phone number below for possible testing. Telephone instructions given to __Patient___and asked if any additional questions and then verbalized understanding. Patient advised to call surgeon office or pre surgery nurse liaison [phone] if any additional questions.
--- NOTE | 2022-08-15 16:36 | PM.IMHP ---
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 Narrative: planned procedure Review of Systems Review of Systems: All systems reviewed & are unremarkable except as noted in HPI and below PMFSH Past Medical History Medical History Asthma Bipolar 1 disorder Bladder cancer Cancer Chronic low back pain Chronic neck pain GERD (gastroesophageal reflux disease) Hypercholesteremia Hypertension Nicotine dependence in remission Nocturnal leg cramps Overweight (BMI 25.0-29.9) Surgical History Surgical History Bladder tumor Tumor Removal 2011 H/O nephrolithotomy with removal of calculi x2 on right and x3 on left; History of hysterectomy (~1999) LIBERTAD BSO Hx of cataract surgery (~2014) Hx of tonsillectomy (~1966) Family History Family History Mother Family history of coronary artery disease Rectal cancer Hypertension Depression Heart disease Father Family history of coronary artery disease Throat cancer Lung cancer Diabetes mellitus Hypertension Brother Family history of coronary artery disease Alcoholism Diabetes mellitus Heart disease Cerebrovascular accident Sibling Cancer Social History Social History (Updated 06/15/22 @ 15:15 by Brenda Gómez CMA) Smoking packs per day: 1 Smoking cigarettes per day: 20.0 Years smoked: 30 Smoking pack-years: 30.00 Smoking status: Former smoker Tobacco type: cigarettes Second hand tobacco smoke exposure: Yes Smoking end date: 01/08/13 Additional smoking assessment comments: Quit 2012. 30 pack-year history Alcohol intake: never Substance use: current Substance use type: marijuana Other substance usage details: daily Last use: last week Lack of Transportation: No Lack of Food: Never True Current Housing: I Have Housing Concerned About Future Housing: No Difficulty Paying Gas/Electric Bills: No Difficulty Paying for Meds: No Currently Unemployed: No Education: Grade School Difficulty w/ Childcare or Family Care: No Living arrangements: with family Additional living arrangements comments: . No children. 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 Gender identity (if verbalized by the patient): Female Spiritual care concerns: No Meds Home Medications and Allergies Home Medications Medication Instructions Recorded Confirmed Type hydrochlorothiazide 25 mg tablet See Rx Instructions .Route 05/26/21 08/08/22 Rx .COMPLEX #90 tabs albuterol sulfate 90 mcg/actuation 1 puff inhalation Q4H PRN asthma 09/09/21 08/08/22 Rx aerosol inhaler (ProAir HFA) #18 grams potassium chloride 20 mEq 40 meq PO DAILY@0800 #6 tabs 09/22/21 08/08/22 Rx tablet,extended release (K-Tab) ondansetron 4 mg disintegrating 8 mg PO Q6H PRN nausea and 10/01/21 08/08/22 Rx tablet vomiting #20 tabs fluticasone propionate 50 See Rx Instructions .Route 01/03/22 08/08/22 Rx mcg/actuation nasal .COMPLEX #16 mL spray,suspension loratadine 10 mg tablet See Rx Instructions .Route 02/24/22 08/08/22 Rx .COMPLEX #90 tabs mirabegron 25 mg tablet,extended See Rx Instructions .Route 02/24/22 08/08/22 Rx release 24 hr (Myrbetriq) .COMPLEX #90 tabs paroxetine HCl 20 mg tablet See Rx Instructions .Route 02/24/22 08/08/22 Rx .COMPLEX #90 tabs rosuvastatin 20 mg tablet See Rx Instructions .Route 02/28/22 08/08/22 Rx .COMPLEX #90 tabs diclofenac sodium 50 mg See Rx Instructions .Route 03/21/22 08/08/22 Rx tablet,delayed release .COMPLEX #60 tabs ipratropium 0.5 mg-albuterol 3 mg See Rx Instructions .Route 03/31/22 08/08/22 Rx (2.5 mg base)/3 mL nebulization .COMPLEX #
[2022-08-16] VITALS (14 sets, daily range): BP systolic 111–188; BP diastolic 75–115; PULSE 71–92; RESP 12–20; TEMP 36.3–36.7; O2SAT 91–99
--- NOTE | 2022-08-16 07:45 | WPDHPUPDATE1 ---
History and Physical Update Update Date/Time: 08/16/22 07:45 History and Physical has been reviewed, including an updated exam of the patient. There are NO changes in the patient's condition. Risks, benefits, and alternatives have been discussed and questions answered. Patient agrees to proceed with procedure.
--- NOTE | 2022-08-16 08:04 | WPDANESEPPF ---
Anes - Initial Pre Proc Eval Procedure: Operation Date: 08/16/22 10:00 Proposed Procedures p Nasal Endoscopy with Excision Nasopharyngeal Cyst - Malcom Ruiz MD s [employer] Laryngoscopy with Biopsy - Malcom Ruiz MD Date/Time: 08/16/22 08:04 Surgeon: Malcom Ruiz MD Pre Op Diagnosis: Nasal Phanryngeal Cyst, Vocal Cord Leukoplakia Patient Data Age: 61 Gender: F Height: 1.57 m Weight: 68.1 kg Allergies Allergy/AdvReac Type Severity Reaction Status Date / Time codeine Allergy Intermediate Unknown Verified 08/08/22 12:47 morphine Allergy Intermediate Unknown Verified 08/08/22 12:47 Penicillins Allergy Intermediate Unknown Verified 08/08/22 12:47 methylprednisolone AdvReac Intermediate Palpitation Verified 08/08/22 12:47 s Home Medications Medication Instructions Recorded Confirmed Type hydrochlorothiazide 25 mg tablet See Rx Instructions .Route 05/26/21 08/08/22 Rx .COMPLEX #90 tabs albuterol sulfate 90 mcg/actuation 1 puff inhalation Q4H PRN asthma 09/09/21 08/08/22 Rx aerosol inhaler (ProAir HFA) #18 grams potassium chloride 20 mEq 40 meq PO DAILY@0800 #6 tabs 09/22/21 08/08/22 Rx tablet,extended release (K-Tab) ondansetron 4 mg disintegrating 8 mg PO Q6H PRN nausea and 10/01/21 08/08/22 Rx tablet vomiting #20 tabs fluticasone propionate 50 See Rx Instructions .Route 01/03/22 08/08/22 Rx mcg/actuation nasal .COMPLEX #16 mL spray,suspension loratadine 10 mg tablet See Rx Instructions .Route 02/24/22 08/08/22 Rx .COMPLEX #90 tabs mirabegron 25 mg tablet,extended See Rx Instructions .Route 02/24/22 08/08/22 Rx release 24 hr (Myrbetriq) .COMPLEX #90 tabs paroxetine HCl 20 mg tablet See Rx Instructions .Route 02/24/22 08/08/22 Rx .COMPLEX #90 tabs rosuvastatin 20 mg tablet See Rx Instructions .Route 02/28/22 08/08/22 Rx .COMPLEX #90 tabs diclofenac sodium 50 mg See Rx Instructions .Route 03/21/22 08/08/22 Rx tablet,delayed release .COMPLEX #60 tabs ipratropium 0.5 mg-albuterol 3 mg See Rx Instructions .Route 03/31/22 08/08/22 Rx (2.5 mg base)/3 mL nebulization .COMPLEX #90 ea soln montelukast 10 mg tablet See Rx Instructions .Route 05/16/22 08/08/22 Rx .COMPLEX #90 tabs budesonide-formoterol HFA 160 See Rx Instructions .Route 06/15/22 08/08/22 Rx mcg-4.5 mcg/actuation aerosol .COMPLEX #10.2 ea inhaler (Symbicort) Patient hx anesthesia problems: none Family hx anesthesia problems: none Results Review: All pre-operative results and documents have been reviewed as part of the pre-operative evaluation. [facility] Past Medical History Medical History Asthma Bipolar 1 disorder Bladder cancer Cancer Chronic low back pain Chronic neck pain GERD (gastroesophageal reflux disease) Hypercholesteremia Hypertension Nicotine dependence in remission Nocturnal leg cramps Overweight (BMI 25.0-29.9) Surgical History Surgical History Bladder tumor Tumor Removal 2011 H/O nephrolithotomy with removal of calculi x2 on right and x3 on left; History of hysterectomy (~1999) LIBERTAD BSO Hx of cataract surgery (~2014) Hx of tonsillectomy (~1966) Family History Family History Mother Family history of coronary artery disease Rectal cancer Hypertension Depression Heart disease Father Family history of coronary artery disease Throat cancer Lung cancer Diabetes mellitus Hypertension Brother Family history of coronary artery disease Alcoholism Diabetes mellitus Heart disease Cerebrovascular accident Sibling Cancer Social History Social History Smoking packs per day: 1 Smoking cigarettes per day: 20.0 Years smoked: 30 Smoking pack-years: 30.00 Smoking status: Former smoker Tobacco type: cigarettes Second hand tobacco
[2022-08-16] MEDS: LACTATED RINGERS 1,000 ML 30 ML IV CONT ×2 (08:30→12:50)
[2022-08-16] MEDS: ACETAMINOPHEN 500 MG TABLET 1000 MG PO (08:34)
[2022-08-16] MEDS: ceFAZolin 2 GM/D5W 50 ML 2 GM/50 ML BAG IVPB (10:09)
[2022-08-16] MEDS: OXYMETAZOLINE HCL 0.05% NAS 15 ML BTL (*BKC) 1 SPRAY NASAL (10:41)
--- NOTE | 2022-08-16 11:24 | P.OP_ITS ---
Procedure Note - Detailed Date of Procedure 08/16/22 Pre-op Diagnosis Nasal Phanryngeal Cyst, Vocal Cord Leukoplakia Post-op Diagnosis Same Procedure Performed direct laryngoscopy with bilateral vocal cord biopsy, nasal endoscopy, excisi on/ marsupialization of nasopharyngeal cyst Surgeon Malcom Ruiz MD Anesthesia General Indications see above Findings vocal cord leukoplakia large nasopharyngeal cyst Description of Procedure patient identified consent verified preop. Patient brought operating room. Time-out performed. General anesthesia induced endotracheal tube secured. Patient prepped draped position procedure confirmed 2nd time-out performed. Bed rotated laryngoscope inserted after moist Ray-Amber placed over to gingiva. Small damage to lip upper lip. Vocal cords viewed biopsy bilaterally bleeding controlled with Afrin-soaked pledgets. They were allowed to sit for 5-10 minutes no further bleeding pledgets removed laryngoscope removed patient taken out of suspension, she was placed in suspension for biopsied was done via endoscope. Biopsies sent for pathologic analysis. Bed rotated Afrin-soaked pledgets placed in the nose then removed turbinates outfractured gently to provide more working room large nasopharyngeal cyst it was biopsied with Amena forceps removed with combination Bovie suction electrocautery microdebrider bleeding was well controlled with Bovie suction electrocautery. Very large cyst. Endoscope removed care the patient given back to Anesthesiology total blood loss 20 cc. I performed all dictated portions procedure no complications. Care the Patient given back to Anesthesiology. I performed all dictated portions the procedure. Estimated Blood Loss 20 Drains No Packing No Pathology Yes Complications No immediate complications Condition Stable Disposition PACU [facility] Billing Surgery - Charge Forward: Surgery Billing
[2022-08-16] MEDS: fentaNYL CITRATE INJ (*CRX) 100 MCG/2 ML VIAL 25 MCG IV PUSH ×4 (11:30→12:08)
--- NOTE | 2022-08-16 12:03 | SUR.PHASEI ---
Patient was diaphoretic when she came to the PACU. RN uncovered patient and provided her with a fan.
--- NOTE | 2022-08-16 12:07 | SUR.PHASEI ---
RN called OR [address] Ruiz reassess patient when he's finished in the OR.
--- NOTE | 2022-08-16 12:27 | SUR.PHASEI ---
Dr. Marquez aware of patient's respiratory status. He said give it more time and can order an I.S. for patient.
[2022-08-16] MEDS: ONDANSETRON INJ 4 MG/2 ML VIAL IV PUSH (12:52)
== END 2022-08-16 14:15 | disposition home or self-care (01) ==
PROVIDERS: PCP Nurse Practitioner Family; Visit Provider Otolaryngology
PROC: (CPT 31237; principal; 2022-08-16 10:00)
PROC: 0CJS8ZZ Inspection of Larynx, Via Natural or Artificial Opening Endoscopic (ICD-10-PCS; CPT 31237; 2022-08-16 10:00)
DX: J39.2 Other diseases of pharynx (principal); J38.3 Other diseases of vocal cords; I10 Essential (primary) hypertension; E78.00 Pure hypercholesterolemia, unspecified; K21.9 Gastro-esophageal reflux disease without esophagitis; J45.909 Unspecified asthma, uncomplicated; F31.9 Bipolar disorder, unspecified; Z85.51 Personal history of malignant neoplasm of bladder; Z87.891 Personal history of nicotine dependence; F12.90 Cannabis use, unspecified, uncomplicated; Z79.51 Long term (current) use of inhaled steroids
CPT/HCPCS: 31237; 31535; 30930; 88305; 88342; A9270; J0330; J0690; J1100; J2250; J2405; J2704; J3010; J7120

== ENCOUNTER 2022-12-20 19:00 | Emergency (ER) | payer OTHER, SELFPAY ==
--- NOTE | ~2022-12-20 | XR_ITS ---
EXAM: XR hand LT min 3V, XR wrist LT min 3V DATE: 12/20/2022 19:33 HISTORY: FALL/ULNAR SIDE PAIN . COMPARISON: None available. FINDINGS: Normal mineralization. No fracture or dislocation. No lytic or blastic lesion. Joint space s are maintained. No erosion or periosteal change. Soft tissues within normal limits. IMPRESSION: No acute osseous finding in the left hand or wrist. Reviewed, dictated and finalized at location K. PLUGGER IMPRESSION: No acute osseous finding in the left hand or wrist.
[2022-12-20 19:04] VITALS: BP 154/96; PULSE 74; RESP 20; TEMP 36.8; O2SAT 97
--- NOTE | 2022-12-20 19:14 | ED.UPPEXIN ---
HPI - Extremity Injury (Upper) General Chief Complaint: Extremity Injury, Upper Stated Complaint: fall/L wrist/hand pain Time Seen by Provider: 12/20/22 19:04 History of Present Illness HPI narrative: This is a 62-year-old female, with history of asthma, who presents emergency department after a fall. The patient states she was walking in the dark, across a small bridge over a ditch, when she misstepped and fell on an outstretched left hand and struck her left knee. She complains of 9/10 dull pain of the left hand and 7/10 pain of the left knee. She denies head injury or loss of consciousness. She denies chest pain, shortness of breath or lightheadedness. She states her last tetanus vaccination was greater than 10 years ago. Related Data Allergies Allergy/AdvReac Type Severity Reaction Status Date / Time codeine Allergy Intermediate Unknown Verified 12/20/22 19:11 morphine Allergy Intermediate Unknown Verified 12/20/22 19:11 Penicillins Allergy Intermediate Unknown Verified 12/20/22 19:11 methylprednisolone AdvReac Intermediate Palpitation Verified 12/20/22 19:11 s Review of Systems Review of Systems: CONSTITUTIONAL: Denies fever, chills, or sweats. CARDIOVASCULAR: Denies chest pain, palpitations, or edema. RESPIRATORY: Denies cough or dyspnea. GASTROINTESTINAL: Denies abdominal pain, nausea, vomiting, or diarrhea. GENITOURINARY: Denies dysuria or hematuria. SKIN: Denies rash or itching. MUSCULOSKELETAL: Left hand pain, left wrist pain, left knee pain denies back pain, or myalgia. NEUROLOGIC: Denies headache, numbness, dizziness, or weakness. PSYCHIATRIC: Denies anxiety or depression. [facility] Past Medical History Medical History Asthma Bipolar 1 disorder Bladder cancer Cancer Chronic low back pain Chronic neck pain GERD (gastroesophageal reflux disease) Hypercholesteremia Hypertension Nicotine dependence in remission Nocturnal leg cramps Overweight (BMI 25.0-29.9) Surgical History Surgical History Bladder tumor Tumor Removal 2011 H/O nephrolithotomy with removal of calculi x2 on right and x3 on left; History of hysterectomy (~1999) LIBERTAD BSO Hx of cataract surgery (~2014) Hx of tonsillectomy (~1967) Family History Family History Mother Family history of coronary artery disease Rectal cancer Hypertension Depression Heart disease Father Family history of coronary artery disease Throat cancer Lung cancer Diabetes mellitus Hypertension Brother Family history of coronary artery disease Alcoholism Diabetes mellitus Heart disease Cerebrovascular accident Sibling Cancer Social History Social History Smoking packs per day: 1 Smoking cigarettes per day: 20.0 Years smoked: 30 Smoking pack-years: 30.00 Smoking status: Former smoker Tobacco type: cigarettes Second hand tobacco smoke exposure: Yes Smoking end date: 01/08/13 Additional smoking assessment comments: Quit 2012. 30 pack-year history Alcohol intake: never Substance use: current Substance use type: marijuana Other substance usage details: daily Last use: last week Lack of Transportation: No Lack of Food: Never True Current Housing: I Have Housing Concerned About Future Housing: No Difficulty Paying Gas/Electric Bills: No Difficulty Paying for Meds: No Currently Unemployed: No Education: Grade School Difficulty w/ Childcare or Family Care: No Living arrangements: with family Additional living arrangements comments: . No children. Occupation/Education: retired Additional occupation/education comments: Prior Occupation: [employer]. Gender identity (if verbalized by the patient): Female Spiritual care concerns: No Exam Narrative: GENERAL
[2022-12-20] MEDS: TETANUS,DIPHTHERIA,AC PERTUSSIS ADULT 0.5 ML (ADACEL) IM (19:25)
[2022-12-20] MEDS: ACETAMINOPHEN 500 MG TABLET 1000 MG PO (19:28)
[2022-12-20] MEDS: oxyCODONE HCL (*CRX) 5 MG TAB IR PO (19:28)
== END 2022-12-20 20:07 | disposition home or self-care (01) ==
PROVIDERS: Emergency Provider Preventive Medicine Aerospace Medicine; PCP Nurse Practitioner Family
DX: S63.502A Unspecified sprain of left wrist, initial encounter (principal); S60.512A Abrasion of left hand, initial encounter; S80.212A Abrasion, left knee, initial encounter; I10 Essential (primary) hypertension; Z87.891 Personal history of nicotine dependence; Z23 Encounter for immunization; W18.30XA Fall on same level, unspecified, initial encounter
CPT/HCPCS: 73110; 73130; 90471; 90715; 99283; A9270

== ENCOUNTER 2022-12-22 07:54 | Outpatient (CLI) | payer OTHER, SELFPAY ==
--- NOTE | ~2022-12-22 | XR_ITS ---
EXAMINATION: XR hand RT min 3V DATE: 12/22/2022 08:10 INDICATION: Right thumb pain. TECHNIQUE: 3 views of right hand were obtained. COMPARISON: None. FINDINGS: Bone alignment is normal. No fracture. There is mild osteoarthritis of first carpometacarpa l joint, second and third metacarpophalangeal joints, first interphalangeal joint, second proximal in terphalangeal joint, and fourth and fifth distal interphalangeal joints. There is moderate osteoarthr itis of second and third distal interphalangeal joints. IMPRESSION: 1. Polyarticular osteoarthritis. Reviewed, dictated and finalized at location A. ARTS TEACHER
== END 2022-12-22 07:55 | disposition home or self-care (01) ==
LOC: CHSIMG 07:56
PROVIDERS: PCP Nurse Practitioner Family; Visit Provider Nurse Practitioner Family
DX: M79.641 Pain in right hand (principal); M19.041 Primary osteoarthritis, right hand
CPT/HCPCS: 73130

== ENCOUNTER 2022-12-28 09:16 | Outpatient (CLI) | payer OTHER, SELFPAY ==
[2022-12-28 09:52] LABS: Strep Group A RT-PCR NOT DETECTED (Negative)
[2022-12-28 10:02] LABS: Influenza A QL RT-PCR Negative (Negative); Influenza B QL RT-PCR Negative (Negative); SARS-CoV-2 RNA PCR Negative (Negative)
== END 2022-12-28 09:17 | disposition home or self-care (01) ==
LOC: CHSLAB 09:17
PROVIDERS: PCP Nurse Practitioner Family; Visit Provider Nurse Practitioner Family
DX: J02.9 Acute pharyngitis, unspecified (principal); R05.9 Cough, unspecified
CPT/HCPCS: 87636; 87651

== ENCOUNTER 2023-04-13 13:59 | Outpatient (CLI) | payer OTHER, SELFPAY ==
--- NOTE | ~2023-04-13 | XR_ITS ---
EXAMINATION: XR hand LT min 3V DATE: 04/13/2023 14:30 INDICATION: Left hand fifth digit pain. TECHNIQUE: 3 views of left hand were obtained. COMPARISON: Left hand radiographs 12/20/2022 FINDINGS: Bone alignment is normal. No fracture. There is mild osteoarthritis of first carpometacarpa l joint, second metacarpophalangeal joint, and many of the interphalangeal joints. There is moderate osteoarthritis of third and fifth distal interphalangeal joints. IMPRESSION: 1. Polyarticular osteoarthritis. Reviewed, dictated and finalized at location E. HEMISTRY PROFESSOR
== END 2023-04-13 14:00 | disposition home or self-care (01) ==
LOC: CHSIMG 14:01
PROVIDERS: PCP Nurse Practitioner Family; Visit Provider Nurse Practitioner Family
DX: M25.542 Pain in joints of left hand (principal); M19.042 Primary osteoarthritis, left hand
CPT/HCPCS: 73130

== ENCOUNTER 2023-05-23 11:00 | Outpatient (RCR) | payer OTHER, SELFPAY ==
--- NOTE | 2023-05-15 11:07 | OTOPEVAL1 ---
Assessment and note entered by Hoem Fu, OTR/Beth[place], CHT Evaluation Information 05/15/23 Diagnosis Left trigger thumb Subjective Information Patient reports symptoms of trigger thumb for a little over a month . She received an injection a week ago and she can now bend the thumb IP joint. Reports prior to the injection she was unable to bend the thumb and was having severe pain. She is right handed. She continues to have catching with active IP flexion. Able to actively extend. She is also reporting intermittent paresthesia in the left thumb. She is s/p bilateral carpal tunnel release. She reports she has crushed vertebrae at the C6-C7 level. EMG scheduled for 06/05. Pain Score 4/10, (L) thumb Assessment OT Clinical Summary Patient referred to OT with dx of left trigger thumb as well as recurrent carpal tunnel syndrome on the left. She reports difficulties with hand use due to pain, her thumb catching, and overall weakness. Skilled OT indicated for HEP instruction /progression, modalities, orthotic fabrication, manual therapy, and therapeutic exercise. Plan of Care Interventions Therapeutic Exercise,Manual Therapy,Hot Pack/Cold Pack,Ultrasound,Paraffin OT Services Indicated Yes Treatment Frequency and 2x/week for 7 visits Duration These treatments will address the objective and functional deficits as defined above. The patient will be advanced safely and appropriately in order for the patient to progress towards his/her prior level of function. Additional exercises will be introduced and as well as a comprehensive home exercise program upon discharge, if needed, ?to ensure carryover of functional gains achieved in the clinic. This treatment plan has been reviewed and agreement upon by the patient.
--- NOTE | 2023-05-15 11:07 | OPREHPOC ---
Outpatient Therapy Plan of Care This is a Multidisciplinary Plan of Care that may contain components documented by all disciplines (PT, OT, and ST.) OT Problem 1 OT Problem #1 Knowledge Deficit OT Goal 1 Goal 1. Patient to be independent with instructed materials. Target Visit 7 OT Problem 2 OT Problem #2 Pain OT Goal 1 Goal 1. Patient to report reduced left thumb pain to 4/ 10 at worst . Target Visit 7 OT Problem 3 OT Problem #3 Impaired Range of Motion OT Goal 1 Goal 1. Patient to progress to being able to complete active serial opposition with thumb slide to base of digit V without triggering of the thumb. Target Visit 7 OT Problem 4 OT Problem #4 Impaired Strength OT Goal 1 Goal 1. Patient to be able to complete bottle inspector/pinch strengthening with granado putty x5 minutes without pain or triggering in the left thumb. Target Visit 7 OT Problem 5 OT Problem #5 Impaired Sensation OT Goal 1 Goal 1. Patient to report reduced paresthesia in the left hand. Target Visit 7
--- NOTE | 2023-05-25 11:54 | PCOTNOTE ---
Patient did not show up for scheduled appointment this date. Called patient who states you moved my appointment to next Monday . She got mixed up with the appointments moving next week. Reviewed correct schedule.
--- NOTE | 2023-06-01 09:17 | PCOTNOTE ---
Patient did not show up for scheduled appointment this date. Patient scheduled for 9:00 and was called at 9:15 patient answered and stated she was unable to make it. Patient was reminded of appointment scheduled tomorrow and the time (9:15am).
--- NOTE | 2023-06-02 09:28 | PCOTNOTE ---
Patient did not show up for scheduled appointment this date. Patient did not answer the phone when called patient was asked to call back and confirm that she will be attending her Next scheduled appointment on the .
--- NOTE | 2023-06-09 13:03 | OTOPDC ---
Assessment and note entered by Home Fu, OTR/L, CHT OT Discharge Notification 06/09/23 OT Clinical Summary Arlet was referred to OT with dx of left trigger thumb. She attended 3 OT sessions. She unfortunately has not shown up for a scheduled therapy visit in 3 weeks. Discharging OT due to poor attendance.
== END 2023-06-09 13:36 | disposition home or self-care (01) ==
LOC: ANHOT 11:00
PROVIDERS: PCP Nurse Practitioner Family; Visit Provider Plastic Surgery
DX: M25.542 Pain in joints of left hand (principal)
CPT/HCPCS: 97018; 97035; 97110; 97140; 97165; 99199; L3933

== ENCOUNTER 2023-06-07 09:34 | Outpatient (CLI) | payer OTHER, SELFPAY ==
--- NOTE | 2023-06-07 11:00 | NEURO_ITS ---
Impression: # Complains of numbness of hands. History of carpal tunnel release surgery in the past.Also c/o neck pain. # No Carpal Tunnel Syndrome or ulnar neuropathy. # Ulnar to median cross innervation. # Normal needle/EMG exam proximally and distally.clinical correlation recommended. Nerve Conduction Studies Anti Sensory Summary Table Stim Site NR Peak (ms) P-T Amp (?V) Site1 Site2 Delta-P (ms) Dist (cm) Alex (m/s) Left Median Anti Sensory (2-3nd Digit) Wrist 2.8 48.6 Wrist 2-3nd Digit 2.8 14.0 50 Wrist 2.9 42.1 Wrist 2-3nd Digit 2.8 14.0 50 Right Median Anti Sensory (2-3nd Digit) Wrist 2.8 17.5 Wrist 2-3nd Digit 2.8 14.0 50 Wrist 2.8 13.5 Wrist 2-3nd Digit 2.8 14.0 50 Left Radial Anti Sensory (Base 1st Digit) Wrist 2.7 56.4 Wrist Base 1st Digit 2.7 0.0 Right Radial Anti Sensory (Base 1st Digit) Wrist 2.1 20.2 Wrist Base 1st Digit 2.1 0.0 Left Ulnar Anti Sensory (5th Digit) Wrist 2.6 32.3 Wrist 5th Digit 2.6 14.0 54 Right Ulnar Anti Sensory (5th Digit) Wrist 2.5 39.8 Wrist 5th Digit 2.5 14.0 56 Motor Summary Table Stim Site NR Onset (ms) O-P Amp (mV) Site1 Site2 Delta-0 (ms) Dist (cm) Alex (m/s) Left Median Motor (Abd Poll Brev) Wrist 2.5 3.4 Elbow Wrist 5.0 29.0 58 Elbow 7.5 2.4 Right Median Motor Run #1 (Abd Poll Brev) Wrist 2.7 1.9 Right Median Motor Run #2 (Abd Poll Brev) Wrist 2.7 4.3 Elbow Wrist 4.7 31.0 66 Elbow 7.4 3.3 ELB/ADM Wrist 5.0 0.0 ELB/ADM 7.7 4.2 Erbs ELB/ADM 4.7 0.0 Erbs 3.0 4.9 Left Ulnar Motor (Abd Dig Minimi) Wrist 2.3 6.5 A Elbow Wrist 4.9 30.0 61 A Elbow 7.2 5.3 Right Ulnar Motor (Abd Dig Minimi) Wrist 2.2 6.0 A Elbow Wrist 4.8 30.0 63 A Elbow 7.0 5.6 F Wave Studies NR F-Lat (ms) L-R F-Lat (ms) Left Median (Mrkrs) (Abd Poll Brev) 25.14 0.57 Right Median (Mrkrs) (Abd Poll Brev) 25.70 0.57 Left Ulnar (Mrkrs) (Abd Dig Min) 25.36 0.72 Right Ulnar (Mrkrs) (Abd Dig Min) 24.64 0.72 EMG Side Muscle Nerve Root Ins Act Fibs Amp Dur Recrt Comment Right 1stDorInt Ulnar C8-T1 Nml Nml Nml Nml Nml Right Ext Indicis Radial (Post Int) C7-8 Nml Nml Nml Nml Nml Right Ext Digitorum Radial (Post Int) C7-8 Nml Nml Nml Nml Nml Right BrachioRad Radial C5-6 Nml Nml Nml Nml Nml Right PronatorTeres Median C6-7 Nml Nml Nml Nml Nml Right Abd Poll Brev Median C8-T1 Nml Nml Nml Nml Nml Right ABD Dig Min Ulnar C8-T1 Nml Nml Nml Nml Nml Left 1stDorInt Ulnar C8-T1 Nml Nml Nml Nml Nml Left Ext Indicis Radial (Post Int) C7-8 Nml Nml Nml Nml Nml Left Ext Digitorum Radial (Post Int) C7-8 Nml Nml Nml Nml Nml Left BrachioRad Radial C5-6 Nml Nml Nml Nml Nml Left PronatorTeres Median C6-7 Nml Nml Nml Nml Nml Left Abd Poll Brev Median C8-T1 Nml Nml Nml Nml Nml Left ABD Dig Min Ulnar C8-T1 Nml Nml Nml Nml Nml Left Biceps Musculocut C5-6 Nml Nml Nml Nml Nml Left Triceps Radial C6-7-8 Nml Nml Nml Nml Nml Left Deltoid Axillary C5-6 Nml Nml Nml Nml Nml Right Biceps Musculocut C5-6 Nml Nml Nml Nml Nml Right Triceps Radial C6-7-8 Nml Nml Nml Nml Nml Right Deltoid Axillary C5-6 Nml Nml Nml Nml Nml MTDD
== END 2023-06-07 09:35 | disposition home or self-care (01) ==
LOC: ANHNEURO 09:35
PROVIDERS: PCP Nurse Practitioner Family; Visit Provider Plastic Surgery
DX: M25.542 Pain in joints of left hand (principal); G56.03 Carpal tunnel syndrome, bilateral upper limbs
CPT/HCPCS: 95886; 95911

== ENCOUNTER 2023-06-16 07:45 | Outpatient (CLI) | payer OTHER, SELFPAY ==
--- NOTE | ~2023-06-16 | XR_ITS ---
EXAMINATION: XR_CERV2-3V_CR DATE: 06/16/2023 08:19 INDICATION: Neck pain. TECHNIQUE: 3 views of cervical spine were obtained. COMPARISON: None. FINDINGS: There is 4 degrees dextrocurvature of cervical spine. Vertebral body heights are normal. Th ere is moderately decreased disc height at C6-C7. There is multilevel uncovertebral joint osteoarthri tis, severe bilaterally at C6-C7. There is multilevel mbiy-ge-dvexziaw facet joint osteoarthritis. Th ere is no central canal stenosis. No prevertebral soft tissue swelling. IMPRESSION: 1. Moderate spondylosis at C6-C7 and mild spondylosis at other levels. Reviewed, dictated and finalized at location A.
--- NOTE | 2023-06-16 08:07 | ECG_ITS ---
SEE SCANNED COPY FOR CONFIRMED REPORT MTDD
[2023-06-16 08:18] LABS: Appearance Urine Clear (Clear); Bilirubin Urine Negative (Negative); Blood Urine Negative (Negative); Color Urine Light Yellow (Yellow); Glucose Urine UA Negative (Negative); Ketones Urine Negative (Negative); Leukocyte Esterase Ur Negative LEU/UL (Negative); Nitrate Urine Negative (Negative); Protein Urine Negative (Negative); Specific Grav Ur 1.025 (1.010-1.020); Urobilinogen Urine 0.2 mg/dL (0.2-1.0); pH Urine 5.5 (5.0-8.0)
[2023-06-16 08:19] LABS: Basophils Absolute Auto 0.08 K/mm3 (0.00-0.10); Basophils Percent Auto 1.2 % (0.0-1.0); Eosinophils Absolute Auto 0.15 K/mm3 (0.02-0.50); Eosinophils Percent Auto 2.3 % (1.0-6.0); Hemoglobin 14.4 g/dL (12.0-15.0); Immature Granulocyte Absolute 0.03 K/mm3 (0.00-0.00); Immature Granulocyte Percent A 0.5 % (0.0-0.0); Lymphocytes Absolute Auto 1.95 K/mm3 (1.10-4.50); Lymphocytes Percent Auto 30.2 % (18.0-42.0); Mean Corpuscular Hemoglobin 29.4 pg (27.0-31.0); Mean Corpuscular Volume 91.8 fL (78.0-102.0); Mean Platelet Volume 10.8 fl (9.2-11.8); Monocytes Absolute Auto 0.35 K/mm3 (0.10-0.90); Monocytes Percent Auto 5.4 % (2.0-11.0); Neutrophils Percent Auto 60.4 % (50.0-70.0); Platelet Count Result 186 K/mm3 (150-420); Red Cell Distribution Width 13.3 % (11.6-14.4); White Blood Count 6.5 K/mm3 (4.8-10.8)
[2023-06-16 08:29] LABS: Add Urine Microscopic? NO
[2023-06-16 09:05] LABS: Alanine Aminotransferase 28 U/L (14-59); Albumin Level 3.9 g/dL (3.4-5.0); Alkaline Phosphatase 128 U/L (46-116); Anion Gap 9 mmol/L (4-12); Aspartate Amino Transferase 20 U/L (15-37); Bilirubin,Total 0.3 mg/dL (0.00-1.00); Blood Urea Nitrogen 15 mg/dL (7-18); Carbon Dioxide 28 mmol/L (21-32); Chloride 102 mmol/L (98-108); Estimated Glomerular Filt Rate > 60; Free T4 Free Thyroxine 0.85 ng/dL (0.76-1.46); Glucose 106 mg/dL (70-99); Iron 78 ug/dL (50-170); Osmolality Calculated 288 mOsm/kg (285-295); Potassium 4.4 mmol/L (3.5-5.1); Sodium 139 mmol/L (136-145); Thyroid Stimulating Hormone 2.29 uIU/mL (0.36-3.74); Total Protein 7.2 g/dL (6.4-8.2); Vitamin B12 267 pg/mL (193-986)
[2023-06-19 10:19] LABS: Vitamin D 25 Hydroxy 17 ng/mL (30-100)
== END 2023-06-16 07:46 | disposition home or self-care (01) ==
PROVIDERS: PCP Nurse Practitioner Family; Visit Provider Nurse Practitioner Family
DX: R53.83 Other fatigue (principal); R11.10 Vomiting, unspecified; Z79.899 Other long term (current) drug therapy; G89.29 Other chronic pain; M54.2 Cervicalgia; R07.89 Other chest pain; M43.02 Spondylolysis, cervical region
CPT/HCPCS: 36415; 72040; 80053; 81003; 82306; 82607; 83540; 83735; 84439; 84443; 85025; 93005

== ENCOUNTER 2023-11-25 08:08 | Outpatient (CLI) | payer OTHER, SELFPAY ==
--- NOTE | ~2023-11-25 | MR_ITS ---
MRI of the cervical spine Clinical History: Chronic neck pain, upper extremity numbness Technique: Axial T2-weighted and gradient images, and sagittal T1-weighted, T2-weighted, and STIR nasra ges were acquired. Findings: There is no fracture or subluxation of the cervical spine. Vertebral bodies maintain normal height and alignment. No bone marrow signal abnormality seen. At C2-C3, there is no disc bulge or herniation. No spinal canal stenosis, cord compression, or neural foraminal narrowing. At C3-C4, there is no significant disc bulge or herniation. No spinal canal stenosis, cord compressio n, or definite neural foraminal narrowing. At C4-C5, there is no disc bulge or herniation. No spinal canal stenosis, cord compression or right n eural foraminal narrowing. There is left neural foraminal narrowing with facet arthropathy. At C5-C6, there is minimal disc osteophyte complex. No deepak canal stenosis or cord compression. Ther e is left neural foraminal narrowing with probable left facet arthropathy. No definite right neural f oraminal narrowing. At C6-C7, there is disc osteophyte complex, with mild canal stenosis but no deepak cord compression. T here is left neural foraminal narrowing and probable mild right neural foraminal narrowing. Incidental note made of probable prominent central disc protrusion versus extrusion at the T2-T3 leve l on sagittal images. No abnormal signal in the spinal cord. Paravertebral soft tissues are unremarkable. Impression: Mild degenerative spondylosis of the cervical spine, multilevel neural foraminal narrowing, as detail ed above. Prominent central disc protrusion versus extrusion at T2-T3, possible minimal impingement of the vent ral cord at this level. Reviewed, dictated and finalized at [facility]. Impression: Mild degenerative spondylosis of the cervical spine, multilevel neural foramina l narrowing, as detailed above. Prominent central disc protrusion versus extrusion at T2-T3, possible minimal i mpingement of the ventral cord at this level.
== END 2023-11-25 08:09 | disposition home or self-care (01) ==
LOC: CHSIMG 08:09
PROVIDERS: PCP Family Medicine; Visit Provider Neurological Surgery
DX: M54.12 Radiculopathy, cervical region (principal); M43.02 Spondylolysis, cervical region
CPT/HCPCS: 72141

== ENCOUNTER 2024-01-02 07:57 | Outpatient (RCR) | payer MEDICARE, OTHER, SELFPAY ==
--- NOTE | 2024-01-02 09:09 | PTOPEVAL1 ---
Assessment and note entered by Viky Glez DPT Evaluation Information Assessment Status Evaluation Diagnosis neck pain Other ICD-10 Condition Codes ( m54.12, m47.822 PT) Onset 12/28/23 Subjective Information Patient reports she has had chronic neck pain. She reports within in the last month pain has increase. She reports she has had relief with PT and injections in the past. She reports pain will radiate down the L arm. Imaging shows C6-C7 degeneration. She reports pain with folding laundry, standing for house hold tasks, sleeping, and driving. She reports she gets headaches daily. She reports she does not work. She returns to [place] in 3 months. She sees pain management in [place]. Reported Pain Level Pain Score 6: Self Report Assessment PT Clinical Summary Ms. Blake is a 63 year old female who presents to PT with neck pain with radiating pain to the L UE . She demonstrates decreased cervical active ROM, decreased UE strength and ROM and impaired posture limiting her ability to sleep, drive, and complete house hold tasks. She would benefit from skilled PT to address impairments and return to [facility]. Plan of Care Interventions Electrical Stimulation,Hot Pack/Cold Pack,Manual Therapy,Mechanical Traction,Neuro Re-education, Patient/Caregiver Educati,Therapeutic Activities, Therapeutic Exercise PT Services Indicated Yes Treatment Frequency and 2x weekly for 10 visits Duration These treatments will address the objective and functional deficits as defined above. The patient will be advanced safely and appropriately in order for the patient to progress towards his/her prior level of function. Additional exercises will be introduced and as well as a comprehensive home exercise program upon discharge, if needed, ?to ensure carryover of functional gains achieved in the clinic. This treatment plan has been reviewed and agreement upon by the patient.
--- NOTE | 2024-01-25 07:31 | PCPTNOTE ---
Patient called & cancelled scheduled appointment this date due to [sick]
--- NOTE | 2024-02-01 07:53 | PCPTNOTE ---
Patient called & cancelled scheduled appointment this date.
--- NOTE | 2024-02-08 08:07 | PCPTNOTE ---
Cancelled session. Reports she is not going to make it today.
--- NOTE | 2024-02-13 17:31 | PCPTNOTE ---
Patient called & cancelled scheduled appointment this date due to the weather.
--- NOTE | 2024-03-05 09:02 | OPREHPOC ---
Outpatient Therapy Plan of Care This is a Multidisciplinary Plan of Care that may contain components documented by all disciplines (PT, OT, and ST.) PT Problem 1 PT Problem #1 Knowledge Deficit PT Goal 1 Goal / Goal Update patient to demonstrate independence with HEP Target Visit 5 Progress Met PT Problem 2 PT Problem #2 Pain PT Goal 1 Goal / Goal Update 1. patient to report highest pain at 2/10 2. patient to report ability to sleep with no disturbance due to neck pain Target Visit 14 Progress Not Met PT Problem 3 PT Problem #3 Impaired Range of Motion PT Goal 1 Goal / Goal Update patient to improve B cervical rotation to 60 deg to return to driving at PLOF Target Visit 14 Progress Partially Met PT Problem 4 PT Problem #4 Impaired Functional Mobility PT Goal 1 Goal / Goal Update 1. patient to demonstrate 5/5 B UE strength to return to lifting for house hold tasks. not met 2. patient to report ability to complete laundry with no increase in neck pain. not met 3. patient to improve NDI by 20% Target Visit 14 Progress Not Met
--- NOTE | 2024-03-05 09:02 | PTOPREEVAL ---
Assessment and note entered by JT File, PT Evaluation Information Assessment Status Re-evaluation Diagnosis neck pain Other ICD-10 Condition Codes ( m54.12, m47.822 PT) Onset 12/28/23 Subjective Information patient reports she is sore today. she reports she has been helping a kid in a wheelchair, and reports she thinks it is sore from having to pull on the chair. she reports she has increased pain and symptoms with increased activity (sweeping floors, pulling and pushing wheelchair, etc). she reports she has less symptoms down the L UE. Reported Pain Level Pain Score 5: Self Report Assessment PT Clinical Summary mrs. blake is a 63 yo woman who presents today for her 10th skilled PT visit for her neck pain and L UE radicular symptoms. she reports less radicular pain and improved mobility overall, but a flare up of pain the last few days due to a lot of pulling/pushing on a WC. she has made progress towards goals, but given her recent flare up, patient would benefit from continued skilled PT. Plan of Care Interventions Electrical Stimulation,Hot Pack/Cold Pack,Manual Therapy,Mechanical Traction,Neuro Re-education, Patient/Caregiver Education,Therapeutic Activities ,Therapeutic Exercise PT Services Indicated Yes Treatment Frequency and continue skilled PT 2x weekly for 4 more visits Duration These treatments will address the objective and functional deficits as defined above. The patient will be advanced safely and appropriately in order for the patient to progress towards his/her prior level of function. Additional exercises will be introduced and as well as a comprehensive home exercise program upon discharge, if needed, ?to ensure carryover of functional gains achieved in the clinic. This treatment plan has been reviewed and agreement upon by the patient.
--- NOTE | 2024-03-07 17:05 | PCPTNOTE ---
Patient called & cancelled scheduled appointment this date due to illness.
--- NOTE | 2024-03-14 12:56 | PCPTNOTE ---
Patient called & cancelled scheduled appointment this date.
--- NOTE | 2024-03-18 17:46 | PCPTNOTE ---
Patient called & cancelled scheduled appointment this date.
--- NOTE | 2024-03-26 17:23 | PCPTNOTE ---
Patient called & cancelled scheduled appointment this date due to weather.
== END 2024-04-01 23:59 | disposition home or self-care (01) ==
LOC: CHSPT 07:57
PROVIDERS: Visit Provider Neurological Surgery
DX: M54.12 Radiculopathy, cervical region (principal); M47.812 Spondylosis without myelopathy or radiculopathy, cervical region
CPT/HCPCS: 97012; 97014; 97110; 97140; 97161; G0283

== ENCOUNTER 2024-01-23 16:05 | Outpatient (CLI) | payer OTHER, SELFPAY ==
--- NOTE | ~2024-01-23 | MR_ITS ---
EXAMINATION: MR thoracic spine wo con DATE: 01/23/2024 16:42 INDICATION: Radiculopathy, cervical region. TECHNIQUE: Magnetic resonance imaging (MRI) of the thoracic spine was performed without intravenous c ontrast. COMPARISON: None FINDINGS: Alignment is normal. There are Schmorl's nodes at many levels. There is mild chronic anteri or wedging of T6, T7, T8, T11, and T12 vertebral bodies. Intervertebral disc heights are normal. Ther e is multilevel xuew-zs-vdykflex facet joint osteoarthritis. At T1-T2, there is a left central extrus ion without significant canal stenosis. At T2-T3, there is a central protrusion with mild central can al stenosis. At T6-T7, there is a central protrusion with mild central canal stenosis. At T8-T9, ther e is a central protrusion with mild central canal stenosis. On the right, there is mild neural forami nal stenosis at T4-T5. The spinal cord signal intensity is normal. IMPRESSION: 1. Mild thoracic spondylosis. Reviewed, dictated and finalized at location A. THREADER
== END 2024-01-23 16:06 | disposition home or self-care (01) ==
PROVIDERS: PCP Family Medicine; Visit Provider Neurological Surgery
DX: M47.814 Spondylosis without myelopathy or radiculopathy, thoracic region (principal)
CPT/HCPCS: 72146

== ENCOUNTER 2024-02-09 14:59 | Outpatient (CLI) | payer MEDICARE, SELFPAY ==
--- NOTE | ~2024-02-09 | CT_ITS ---
EXAMINATION: CT soft tissue neck chest wo DATE: 02/09/2024 15:17 INDICATION: Left supraclavicular lump. TECHNIQUE: Computed tomography (CT) of the neck and chest was performed without intravenous contrast. Automated exposure control and iterative reconstruction technique were employed. The dose-length pro duct was 594.84 mGy-cm. COMPARISON: Chest CT 09/19/2019 FINDINGS: CT NECK: There are no pathologically enlarged lymph nodes. There is a small right mastoid effusion. T here is severe cervical spondylosis. CT CHEST: There is mild emphysema. There is mild scarring at the lung apices. There is mild atelectas is bilaterally. No pleural effusion. The heart size is normal. There are coronary artery calcificatio ns. No pericardial effusion. There is diffuse hepatic steatosis. Calcifications in the spleen are con sistent with old granulomatous disease. There is moderate thoracic spondylosis. IMPRESSION: 1. No left supraclavicular mass or lymphadenopathy. Reviewed, dictated and finalized at location A. ICITY MANAGER
== END 2024-02-09 15:00 | disposition home or self-care (01) ==
PROVIDERS: PCP Family Medicine; Visit Provider Family Medicine
DX: M54.2 Cervicalgia (principal)
CPT/HCPCS: 70490; 71250

== ENCOUNTER 2024-03-30 21:32 | Emergency (ER) | payer MEDICARE, SELFPAY ==
[2024-03-30] VITALS (8 sets, daily range): BP systolic 93–148; BP diastolic 68–108; PULSE 85–100; RESP 19–38; TEMP 36.4; O2SAT 94–97
--- NOTE | ~2024-03-30 | XR_ITS ---
EXAMINATION: XR chest 1V portable DATE: 03/30/2024 21:48 INDICATION: Shortness of breath. TECHNIQUE: A single frontal view of the chest was obtained. COMPARISON: Chest 2 views 10/01/2021, chest CT 02/09/2024 FINDINGS: There is a diffuse interstitial pattern. No pleural effusion or pneumothorax. The heart siz e is normal. IMPRESSION: 1. Diffuse interstitial pattern in the lungs, consistent with mild pulmonary edema versus atypical pn eum[place]. Reviewed, dictated and finalized at location A. ING HAND IMPRESSION: 1. Diffuse interstitial pattern in the lungs, consistent with mild pulmonary ed jaimie versus atypical pneumonia.
--- NOTE | 2024-03-30 21:34 | ECG_ITS ---
Test Date: 2024-03-30 22:09:37 Measurements Intervals [place] Rate: 85 P: 70 WI: 147 QRS: 37 QRSD: 74 T: 63 QT: 358 QTc: 428 Interpretive Statements SINUS RHYTHM POSSIBLE LEFT ATRIAL ENLARGEMENT ST-T WAVE ABNORMALITY IN INF/LAT LEADS- CONSIDER ISCHEMIA BASELINE ARTIFACT- I, II, III, AVR, AVL, AVF, V1, V4-V6 ABNORMAL ECG No previous ECG available for comparison Electronically Signed On 03-31-2024 07:12:10 GENERAL MANAGER by Harvinder Gaytan D.O.
--- OUTSIDE RECORDS SUMMARY | 2024-03-30 21:34 | XMS_ITS | Patient Health Summary ---
Author Organization [facility] Address [address] [place] [address] Care Team Providers Care Wrapper Hand Name Role Phone Sara Irene GERENTOLOGICAL PHYSIOTHERAPIST-UNIVERSAL GRINDER OPERATOR Primary Care Provid er Note from [facility] [place][note 2],non-owned Affiliates and Associated Physician Practices is amultiple site organization consisting of ambulatory clinics and hospital sitesin [place], [place], [place] and [place]. This disclosure is being madepursuant to the Care Everywhere program and may not contain all information available regarding this patient. Last updated 17.[facility] Allergies * Codeine(Nausea and/or Vomiting) -Low Criticality * Morphine(Nausea and/or Vomiting) -Low Criticality * Penicillin G(Anaphylaxis) -High Criticality Medications * Be aware that medications may not be up to date on this document. Alwaysverify current medications with the patient. * rosuvastatin (Crestor) 20 MG tablet(Started 08/25/2022) Take 1 (one) tablet by mouth once daily * montelukast (Singulair) 10 MG tablet(Started 08/15/2022) Take 1 (one) tablet by mouth once daily * loratadine (Claritin) 10 MG tablet(Started 08/24/2022) Take 1 (one) tablet by mouth once daily * PARoxetine (Paxil) 20 MG tablet(Started 08/24/2022) Take 1 (one) tablet by mouth once daily * Symbicort 160-4.5 MCG/ACT inhaler(Started 08/17/2022) Inhale 2 (two) puffs by mouth 2 times daily * Combivent Respimat 20-100 MCG/ACT inhaler(Started 11/10/2021) Inhale 1 (one) puff by mouth as directed * Myrbetriq 25 MG tablet(Started 05/27/2022) Take 1 (one) tablet by mouth once daily * diclofenac sodium EC (Voltaren) 50 MG tablet(Started 04/06/2022) Take 1 (one) tablet by mouth 3 times daily * fluticasone propionate (Flonase) 50 MCG/ACT nasal spray(Started 07/06/2022) Effie 1 (one) spray into each nostril once daily * omeprazole (PriLOSEC) 20 MG capsule Take 1 (one) capsule by mouth daily before breakfast * Potassium Chloride Radha ER (KLOR-CON M20 PO) Take 2 tablets by mouth once daily * hydroCHLOROthiazide (Hydrodiuril) 25 MG tablet Take 1 (one) tablet by mouth once daily * acetaminophen (Tylenol) 500 MG tablet(Started 09/21/2022) Take 1 (one) tablet by mouth every 6 hours as needed for Fever or Pain Maximum allowable Acetaminophen amount = 4 Grams (4000 mg) / 24 hours. 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 (AFLURIA, FLUZONE QUADRIVALENT; 6MO+) (IIV4)(Given 11/29/2018, 11/02/2017, 11/30/2016) * INFLUENZA VACCINE, QUADR. (FLUZONE; FLULAVAL; FLUARIX; AFLURIA QUADRIVALENT; 6MO+), 0.5 ML (IIV4)(Given 12/09/2015) * PNEUMOCOCCAL PPV VACCINE(Given 05/12/2016) * TDAP, HISTORIC VACCINE(Given 12/20/2022) * iNFLUENZA VACCINE, RECOM-WOOD, QUADR. (FLUBLOCK QUADRIVALENT; 18Y+) (RIV4)(Given 11/13/2019) Social History Tobacco Use Types Packs/Day Years Used Date Smoking Tobacco: Former Cigarettes 1 20 0 10/07/1992 - 10/07/2012 Smokeless Tobacco: Never Alcohol Use Standard Drinks/Week Comments No 0 (1 standard drink = 0.6 oz pur e alcohol) AUDIT-C Answer Date Recorded Q1: How often do you have a drink containing alcohol? Never 09/21/2022 Q2: How many drinks containi ng alcohol do you have on a typical day when you are drinking? Patient does not drink Q3: How often do you have si x or more drinks on one occasion? Never 09/21/2022 Sex and Gender Information Value Date Recorded Sex Assigned at Not on file Gender Identity Not on file Sexual Orientation Not on file Last Filed Vital Signs Vital Sign Reading Time Taken Comments Blood Pressure 128/73 12/15/2023 9:01 AM MARKETING ADMINISTRATOR Pulse 83 12/15/2023 9:01 AM MARKETING ADMINISTRATOR Temperature 36.9 C (98.4 F) 11/21/2022 9:41 AM CDT Respiratory Rate 16 06/09/2023 9:34 AM CDT Oxygen Saturation 100% 06/09/2023 9:34 AM CDT Inhaled Oxygen Concentration 40% 11/21/2022 8 :40 AM CDT Weight 74.3 kg (163 lb 12.8 oz) 12/15/2023 9:01 AM MARKETING ADMINISTRATOR Height 157.5 cm (5' 2 ) 12/15/2023 9:01 AM MARKETING ADMINISTRATOR Body Mass Index 29.96 12/15/2023 9:01 AM MARKETING ADMINISTRATOR Procedures * MN LARYNGOSCOPY,FLEX FIBER,DIAGNOSTIC(Performed 12/15/2023) Performed for Hoarseness of voice * MN LARYNGOSCOPY,FLEX FIBER,DIAGNOSTIC(Performed 06/09/2023) Performed for Hoarseness of voice * MN LARYNGOSCOPY,FLEX FIBER,DIAGNOSTIC(Performed 01/06/2023) Performed for Hoarseness of voice * PATHOLOGY TISSUE(Performed 11/21/2022) Performed for Vocal cord dysplasia * ENDOTRACHEAL TUBE NOTE(Performed 11/21/2022) * ENDOTRACHEAL TUBE NOTE(Performed 11/21/2022) * MN LARYNGOSCOPY,DIRCT,OP SCOP,EXC TUMR(Performed 11/21/2022) Performed for Vocal cord dysplasia * MN LARYNGOSCOPY,FLEX FIBER,DIAGNOSTIC(Performed 10/21/2022) Performed for Vocal cord dysplasia * ENDOTRACHEAL TUBE NOTE(Performed 09/21/2022) * PATHOLOGY TISSUE(Performed 09/21/2022) Performed for Leukoplakia of vocal cords * MN LARYNGOSCOPY,DIRCT,OP SCOP,EXC TUMR(Performed 09/21/2022) Performed for Leukoplakia of vocal cords * MN LARYNGOSCOPY,FLEX FIBER,DIAGNOSTIC(Performed 09/02/2022) Performed for Hoarseness of voice, Leukoplakia of vocal cords Results * MN LARYNGOSCOPY,FLEX FIBER,DIAGNOSTIC (12/15/2023 9:29 AM MARKETING ADMINISTRATOR) Narrative Liang Rob MD - 12/15/2023 9:29 AM MARKETING ADMINISTRATOR Liang Rob MD 12/15/2023 9:54 AM Procedure Note Endoscopy Type: Laryngoscopy Endoscope: 4mm flexible nasopharyngoscopy Anesthesia: topical lidocaine Procedure Details: The patient was sitting upright in a chair with the head in a slightly anterior sniffing position. The endoscope was passed through the nasal cavity with the tongue retracted anteriorly. The tip of the endoscope was positioned in the oropharynx which allowed a complete view of the base of tongue, vallecula, pyriform recesses, epiglottis, bilateral true and false vocal folds, the interarytenoid and post cricoid region, and the immediate subglottis. Findings: True vocal folds mobile no masses or ulcerations seen. Condition: Stable. Patient tolerated procedure well. Complications: None Kash Garcia MD PROCEDURE/MINOR SURG ICAL ORDERABLES * MN LARYNGOSCOPY,FLEX FIBER,DIAGNOSTIC (06/09/2023 12:52 PM CDT) Narrative Kash Garcia MD - 06/09/2023 12:52 PM CDT Kash Garcia MD 06/09/2023 12:52 PM Procedure Note Endoscopy Type: Laryngoscopy Endoscope: 4mm flexible nasopharyngoscopy Anesthesia: topical lidocaine Procedure Details: The patient was sitting upright in a chair with the head in a slightly anterior sniffing position. The endoscope was passed through the nasal cavity with the tongue retracted anteriorly. The tip of the endoscope was positioned in the oropharynx which allowed a complete view of the base of tongue, vallecula, pyriform recesses, epiglottis, bilateral true and false vocal folds, the interarytenoid and post cricoid region, and the immediate subglottis. Findings: True vocal folds mobile no masses or ulcerations seen. Condition: Stable. Patient tolerated procedure well. Complications: None Kash Garcia MD PROCEDURE/MINOR SURG ICAL ORDERABLES * MN LARYNGOSCOPY,FLEX FIBER,DIAGNOSTIC (01/06/2023 11:22 AM MARKETING ADMINISTRATOR) Narrative Kash Garcia MD - 01/06/2023 11:22 AM MARKETING ADMINISTRATOR Kash Garcia MD 01/06/2023 11:23 AM Procedure Note Endoscopy Type: Laryngoscopy Endoscope: 4mm flexible nasopharyngoscopy Anesthesia: topical lidocaine Procedure Details: The patient was sitting upright in a chair with the head in a slightly anterior sniffing position. The endoscope was passed through the nasal cavity with the tongue retracted anteriorly. The tip of the endoscope was positioned in the oropharynx which allowed a complete view of the base of tongue, vallecula, pyriform recesses, epiglottis, bilateral true and false vocal folds, the interarytenoid and post cricoid region, and the immediate subglottis. Findings: true vocal folds move well without concerning lesion. Well-healed laryngeal surface. Condition: Stable. Patient tolerated procedure well. Complications: None Kash Garcia MD PROCEDURE/MINOR SURG ICAL ORDERABLES * PATHOLOGY TISSUE (11/21/2022 8:14 AM CDT) Only the most recent of2 resultswithin the time period is included. Case Report Surgical Pathology Report Case: [id number] Authorizing Provider: Kash Garcia MD Collected: 11/21/2022 08:14 AM Ordering Location: [facility] Received: 11/21/2022 10:54 AM Pathologist: Carol Cho MD Specimen: Vocal Cord Biopsy, left vocal cord lesion 11/25/2022 2:50 PM [facility] Final Diagnosis Vocal cord, left lesion, biopsy (A): - Squamous mucosa with mild dysplasia (see comment) 11/25/2022 2:50 PM [facility] Microscopic Description and Comment Extensive cautery artifact limits evaluation. Microscopic examination is performed and substantiates the above diagnosis. 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 Operative procedure: direct laryngoscopy. Dysplastic mucosa of anterior to middle aspect of the left true vocal fold, hyperkeratotic appearance of right anterior superior aspect of right true vocal fold. 11/25/2022 2:50 PM [facility] Gross Description The requisition and specimen(s) are identified with the patient's name, Arlet Blake. Received in formalin, specimen A , are multiple fragments of granado-brown tissue, 0.2-0.5 cm, 0.5 x 0.3 x 0.2 cm in aggregate. Specimen is submitted in toto in cassette A1. [place] 11/25/2022 2:50 PM [facility] Pathologist Location at [facility] 11/25/2022 2:50 PM [facility] Disclaimer The performance characteristics of all immunohistochemical and indirect immunofluorescence stains (if any) cited in this report were determined by the Histopathology Laboratory of [facility]. Some of these tests were developed by our own laboratory and have not been cleared or approved by the US Food and Drug Administration. The FDA does not require this test to go through premarket FDA review. These tests are used for clinical purposes. They should not be regarded as investigational or for research. This laboratory is certified under the Clinical Laboratory Improvement Amendments (CLIA) as qualified to perform high complexity clinical laboratory testing. This case has been personally reviewed and interpreted by the attending (teaching) pathologist. 11/25/2022 2:50 PM [facility] Embedded Images 11/25/2022 2:50 PM CDT [facility] Biopsy, Excision BIOPSY OF VOCAL CORD / Unknown 11/21/2022 8:14 AM CDT 11/21/2022 10:54 AM CDT Comment:Pre-op diagnosis: Vocal cord dysplasia Kash Garcia MD LAB - PATHOLOGY/CYTO LOGY ORDERABLES [facility] [address] [place], [place] [address] [phone] * ETT LINE PERFORMABLE (11/21/2022 8:03 AM CDT) Narrative Cedrick Reyes MD - 11/21/2022 8:03 AM CDT Cedrick Reyes MD 11/21/2022 8:03 AM Endotracheal Tube Placement: Patient Location: OR. Intubation Event Date/Time: 11/21/2022 7:48 AM Procedure: intubation ([id number]). Procedure Section: Sedation: under general anesthesia. Indications for Airway Management: anesthesia Procedure pretreatments used? No Induction: standard IV Patient Position: sniffing Mask Ventilation: easy. Blade Type: Marce Blade Size: 3 Laryngoscopy View: grade 1 (full cords) Intubation Adjuncts: stylet Tube: laser Placement: oral Tube type: cuff - inflated Tube Size (MM): 7 Depth of Insertion (CM): 21 Measured From: lips Cuff volume (mL): 5 Cuff Inflated With: air Number of Attempts: 1. Ventilation between attempts: No. Placement Verified By: direct visualization, bilateral breath sounds, chest auscultation and CO2 monitor Tube secured with: adhesive tape. Dentition unchanged? Yes Difficult Airway? No. Procedure Start Time: 11/21/2022 7:48 AM. Staff Section Anesthesia Provider: Cedrick Reyes MD, Performed the procedure Provider #1: Darell Valderrama MD. Darell Valderrama MD GENERAL ANESTHESIA O RDERABLES * ETT LINE PERFORMABLE (11/21/2022 8:02 AM CDT) Narrative Cedrick Reyes MD - 11/21/2022 8:02 AM CDT Cedrick Reyes MD 11/21/2022 8:03 AM Endotracheal Tube Placement: Patient Location: OR. Intubation Event Date/Time: 11/21/2022 7:38 AM Procedure: intubation ([id number]). Procedure Section: Sedation: under general anesthesia. Indications for Airway Management: anesthesia Procedure pretreatments used? No Induction: standard IV Patient Position: sniffing Mask Ventilation: easy. Blade Type: Marce Blade Size: 3 Laryngoscopy View: grade 1 (full cords) Intubation Adjuncts: stylet Tube: endotracheal tube Placement: oral Tube type: cuff - inflated Tube Size (MM): 7 Depth of Insertion (CM): 21 Measured From: lips Cuff volume (mL): 5 Cuff Inflated With: air Number of Attempts: 1. Ventilation between attempts: No. Placement Verified By: direct visualization, bilateral breath sounds and chest auscultation Tube secured with: adhesive tape. Dentition unchanged? Yes Difficult Airway? No. Procedure Start Time: 11/21/2022 7:38 AM. Staff Section Anesthesia Provider: Cedrick Reyes MD, Performed the procedure Provider #1: Darell Valderrama MD. Darell Valderrama MD GENERAL ANESTHESIA O RDERABLES * MN LARYNGOSCOPY,FLEX FIBER,DIAGNOSTIC (10/21/2022 4:30 PM CDT) Narrative Kash Garcia MD - 10/21/2022 4:30 PM CDT Kash Garcia MD 10/21/2022 4:32 PM Procedure Note Endoscopy Type: Laryngoscopy Endoscope: 4mm flexible nasopharyngoscopy Anesthesia: topical lidocaine Procedure Details: The patient was sitting upright in a chair with the head in a slightly anterior sniffing position. The endoscope was passed through the nasal cavity with the tongue retracted anteriorly. The tip of the endoscope was positioned in the oropharynx which allowed a complete view of the base of tongue, vallecula, pyriform recesses, epiglottis, bilateral true and false vocal folds, the interarytenoid and post cricoid region, and the immediate subglottis. Findings: True vocal folds mobile the left vocal fold is rough the right vocal fold has smooth mucosal appearance there does appear to be some healing tissue still at the anterior commissure. Condition: Stable. Patient tolerated procedure well. Complications: None Kash Garcia MD PROCEDURE/MINOR SURG ICAL ORDERABLES * ETT LINE PERFORMABLE (09/21/2022 9:52 AM CDT) Senia Bruno APRN-CRNA - 09/21/2022 9:52 AM CDT Senia Pretty APRN-CRNA 09/21/2022 9:55 AM Endotracheal Tube Placement: Patient Location: OR. Intubation Event Date/Time: 09/21/2022 9:16 AM Procedure: intubation ([id number]). Procedure Section: Sedation: under general anesthesia. Indications for Airway Management: anesthesia Induction: standard IV Patient Position: sniffing Mask Ventilation: easy. Blade Type: Marce Blade Size: 3 Laryngoscopy View: grade 1 (full cords) Tube: endotracheal tube Placement: oral Tube type: cuff - inflated Tube Size (MM): 5.5 Cuff volume (mL): 1 (Saline) Cuff Inflated With: water Number of Attempts: 1. Placement Verified By: direct visualization, chest auscultation, CO2 detector, CO2 monitor and bilateral breath sounds CXR Findings: ETT in proper place. Tube secured with: adhesive tape. Dentition unchanged? Yes Difficult Airway? No. Procedure Start Time: 09/21/2022 9:16 AM. Staff Section Anesthesia Provider: Senia Pretty APRN-CRNA, Performed the procedure Rodger Hooks MD GENERAL ANESTHESIA ORDERABLES * MN LARYNGOSCOPY,FLEX FIBER,DIAGNOSTIC (09/02/2022 8:51 AM CDT) Julio Grover MD - 09/02/2022 8:51 AM CDT Julio Hart MD 09/02/2022 9:24 AM Procedure Note Endoscopy Type: Laryngoscopy without stroboscopy [id number] Endoscope: Flexible 4mm Scope Anesthesia: Lidocaine 2% and Neosynephrine 1/2% (nasal) Procedure Details: The patient was sitting upright in a chair with the head in a slightly anterior sniffing position. The topical anesthesia was administered and then adequate time was allowed for an anesthetic effect. The endoscope was passed thru the nasal cavity with the tongue retracted anteriorly. The tip of the endoscope was positioned in the oropharynx which allowed a complete view of the base of tongue, vallecula, pyriform recesses, epiglottis, bilateral true and false vocal folds, the interarytenoid and post cricoid region, and the immediate subglottis. Findings: Limited exam due to hypopharyngeal collapse/gag reflex. Leukoplakia visualized on both TVF, L>R. Appropriate TVF movement bilaterally. Subglottis without stenosis. No other masses or lesions. Condition: Stable. Patient tolerated procedure well. Complications: None Dr. Garcia was present for the entirety of the procedure. Kash Garcia MD PROCEDURE/MINOR SURG ICAL ORDERABLES Care Teams Wrapper Hand Relationship Specialty Start Date End Date Sara Irene, GERENTOLOGICAL PHYSIOTHERAPIST-UNIVERSAL GRINDER OPERATOR [address] [place] [address] PCP - General Nurse Practitioner Family 08/29/22
--- OUTSIDE RECORDS SUMMARY | 2024-03-30 21:34 | XMS_ITS | Clinical Summary ---
Author Organization [facility] Address [address] [place] [address] Care Team Providers Care Superintendent Generating Plant Name Role Phone Sara Irene PIANO STRINGER-DENTAL SERVICE CHIEF Primary Care Provid er Source Comments [facility],non-owned Affiliates and Associated Physician Practices is amultiple site organization consisting of ambulatory clinics and hospital sitesin [place], [place] and [place]. This disclosure is being madepursuant to the Care Everywhere program and may not contain all information available regarding this patient. Last updated 17.[facility] Allergies Active Allergy Reactions Criticality Noted Date Comments Codeine Nausea and/or Vomiting Low 05/12/2020 Morphine Nausea and/or Vomiting Low 01/22/2013 Dizziness Penicillin G Anaphylaxis High 01/22/2013 Medications * Be aware that medications may not be up to date on this document. Alwaysverify current medications with the patient. Medication Sig Dispensed Refills Start Date End Date Status rosuvastatin (Crestor) 20 MG tablet Take 1 (one) tablet by mouth once daily 08/25/2022 Active montelukast (Singulair) 10 MG tablet Take 1 (one) tablet by mouth once daily 08/15/2022 Active loratadine (Claritin) 10 MG tablet Take 1 (one) tablet by mouth once daily 08/24/2022 Active PARoxetine (Paxil) 20 MG tablet Take 1 (one) tablet by mouth once daily 08/24/2022 Active Symbicort 160-4.5 MCG/ACT inhaler Inhale 2 (two) puffs by mouth 2 times daily 08/17/2022 Active Combivent Respimat 20-100 MCG/ACT inhaler Inhale 1 (one) puff by mouth as directed 11/10/2021 Active Myrbetriq 25 MG tablet Take 1 (one) tablet by mouth once daily 05/27/2022 Active diclofenac sodium EC (Voltaren) 50 MG tablet Take 1 (one) tablet by mouth 3 times daily 04/06/2022 Active fluticasone propionate (Flonase) 50 MCG/ACT nasal spray [place] 1 (one) spray into each nostril once daily 07/06/2022 Active omeprazole (PriLOSEC) 20 MG capsule Take 1 (one) capsule by mouth daily before breakfast Active Potassium Chloride Radha ER (KLOR-CON M20 PO) Take 2 tablets by mouth once daily Active hydroCHLOROthiazid e (Hydrodiuril) 25 MG tablet Take 1 (one) tablet by mouth once daily Active acetaminophen (Tylenol) 500 MG tablet Take 1 (one) tablet by mouth every 6 hours as needed for Fever or Pain Maximum allowable Acetaminophen amount = 4 Grams (4000 mg) / 24 hours. 60 tablet 09/21/2022 Active ibuprofen (Motrin) 800 MG tablet Take 1 (one) tablet by mouth every 6 hours as needed for Pain 30 tablet 09/21/2022 Active Additional Information Patient not taking.Reported on 12/15/2023 albuterol (5 MG/ML) 0.5% 2.5 mg in sodium chloride 0.9 % 3 mL Inhale 2.5 (two and one-half) mg by mouth 3 times daily Active cyclobenzaprine (Flexeril) 10 MG tablet Take 1 (one) tablet by mouth as needed 11/30/2022 Active Other Inhale 1 Each by mouth at bedtime Oxygen Active Breo Ellipta 100-25 MCG/ACT inhaler Inhale 1 (one) puff by mouth once daily Active Active Problems Problem Noted Date Diagnosed Date Hoarseness of voice 12/15/2023 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 (A FLURIA, FLUZONE QUADRIVALENT; 6MO+) (IIV4) 11/29/2018,11/02/2017,11/30/2016 INFLUENZA VACCINE, QUADR. (F LUZONE; FLULAVAL; FLUARIX; AFLURIA QUADRIVALENT; 6MO+), 0.5 ML (IIV4) 12/09/2015 PNEUMOCOCCAL PPV VACCINE 05/12/2016 TDAP, HISTORIC VACCINE 12/20/2022 iNFLUENZA VACCINE, RECOM-WOOD, QUADR. (FLUBLOCK QUADRIVALENT; 18Y+) (RIV4) 11/13/2019 Family History Medical History Relation Name Comments CAD (Coronary Artery Disease) Brother Cataract Brother Diabetes Brother Heart Disease Brother Hypertension Brother Cancer Father throat and bone Cancer Mother Rectal Cataract Mother Heart Disease Mother Cancer Sister female organ an d bladder Thyroid Disease Sister Relation Name Status Comments Brother Father Mother Sister Social History Tobacco Use Types Packs/Day Years [...] Comments Blood Pressure 128/73 12/15/2023 9:01 AM SOFT IRON INSPECTOR Pulse 83 12/15/2023 9:01 AM SOFT IRON INSPECTOR Temperature 36.9 C (98.4 F) 11/21/2022 9:41 AM CDT Respiratory Rate 16 06/09/2023 9:34 AM CDT Oxygen Saturation 100% 06/09/2023 9:34 AM CDT Inhaled Oxygen Concentration 40% 11/21/2022 8 :40 AM CDT Weight 74.3 kg (163 lb 12.8 oz) 12/15/2023 9:01 AM SOFT IRON INSPECTOR Height 157.5 cm (5' 2 ) 12/15/2023 9:01 AM SOFT IRON INSPECTOR Body Mass Index 29.96 12/15/2023 9:01 AM SOFT IRON INSPECTOR Plan of Treatment Upcoming Encounters Date Type Department Care Team (Late st Contact Info) Description 06/14/2024 9:00 AM CDT Office Visit [facility] - ENT [address] [facility] ([place], [place]), [place] [address] Kash Garcia MD [address] [facility] 2L DE[place] [address] Health Maintenance Due Date Last Done Comments COLOGUARD (AGES 45-75) - COLON CA SCREENING 1960 COLON MONITORING 1960 COLONOSCOPY - COLON CA SCREENING 1960 CT COLONOGRAPHY - COLON CA SCREENING 1960 Colorectal Cancer Screening 1960 FIT - COLON CA SCREENING 1960 FLEX SIG - COLON CA SCREENING 1960 MAMMOGRAM 1960 PAP SMEAR 1960 HIV SCREENING 10/10/1975 HEPATITIS C SCREENING 10/05/1978 LUNG CANCER SCREENING 2010 ZOSTER VACCINE (1 of 2) 2010 PNEUMOCOCCAL VACCINE 50+ (2 of 2 - PCV) 05/12/2017 05/12/2016 SCREENING FOR DIABETES 09/02/2022 COVID-19 VACCINE ( season) 2023 05/22/2020, 04/24/2020 INFLUENZA VACCINE (#1) 2023 , 11/13/2019, 11/29/2018, Additional history exists DEPRESSION SCREENING 02/07/2024 MEDICARE AWV CALENDAR YEAR 2024 DTAP/TDAP/TD VACCINES (2 - Td or Tdap) 12/20/2032 12/20/2022 Respiratory Syncytial Virus (RSV) Vaccine Pt: or over 60 yrs (1 - 1-dose 75+ series) 10/10/2035 PNEUMOCOCCAL VACCINE Aged Out 05/12/2016 No long er eligible based on patient's age to complete this topic HEPATITIS B VACCINE Aged Out No longe r eligible based on patient's age to complete this topic HIB VACCINE Aged Out No longer eligi ble based on patient's age to complete this topic HPV VACCINE Aged Out No longer eligi ble based on patient's age to complete this topic MENINGOCOCCAL (Group B) VACCINE Aged Out No longer eligible based on patient's age to complete this topic MENINGOCOCCAL VACCINE Aged Out No akira alberto eligible based on patient's age to complete this topic Care Teams Superintendent Generating Plant Relationship Specialty Start Date End Date Sara Irene, PIANO STRINGER-DENTAL SERVICE CHIEF [address] [place] [address] PCP - General Nurse Practitioner Family 08/29/22
--- OUTSIDE RECORDS SUMMARY | 2024-03-30 21:35 | XMS_ITS | Referral Summary ---
Author Organization [facility] Address [address] [place] [address] Care Team Providers Care Industrial Engineering Intern Name Role Phone Sara Irene SERVICER COIN MACHINES-BUCKET CHUCKER Primary Care Provid er Source Comments [facility],non-owned Affiliates and Associated Physician Practices is amultiple site organization consisting of ambulatory clinics and hospital sitesin [place], [place], [place] and [place]. This disclosure is being madepursuant to the Care Everywhere program and may not contain all information available regarding this patient. Last updated 17.[facility] Allergies Active Allergy Reactions Criticality Noted Date [...] fluticasone propionate (Flonase) 50 MCG/ACT nasal spray [place] 1 (one) spray into each nostril once [...] RECOM-WOOD, QUADR. (FLUBLOCK QUADRIVALENT; 18Y+) (RIV4) 11/13/2019 Social History Tobacco Use Types Packs/Day Years [...] Comments Blood Pressure 128/73 12/15/2023 9:01 AM LICENSED CLINICIAN Pulse 83 12/15/2023 9:01 AM LICENSED CLINICIAN Temperature 36.9 C (98.4 F) 11/21/2022 9:41 AM CDT Respiratory Rate 16 06/09/2023 9:34 AM CDT Oxygen Saturation 100% 06/09/2023 9:34 AM CDT Inhaled Oxygen Concentration 40% 11/21/2022 8 :40 AM CDT Weight 74.3 kg (163 lb 12.8 oz) 12/15/2023 9:01 AM LICENSED CLINICIAN Height 157.5 cm (5' 2 ) 12/15/2023 9:01 AM LICENSED CLINICIAN Body Mass Index 29.96 12/15/2023 9:01 AM LICENSED CLINICIAN Plan of Treatment Upcoming Encounters Date Type Department Care Team (Late st Contact Info) Description 06/14/2024 9:00 AM CDT Office Visit [facility] - ENT [address] [place] [phone] Kash Garcia MD [address] [facility] 2L [place] [phone] Care Teams Industrial Engineering Intern Relationship Specialty Start Date End Date Sara Irene, SERVICER COIN MACHINES-BUCKET CHUCKER [address] [place] [address] PCP - General Nurse Practitioner Family 08/29/22
[2024-03-30] MEDS: IPRATROPIUM 0.5 MG/ALBUTEROL SULFATE 2.5 MG AMPUL.NEB 3 ML INHALATION (21:53)
[2024-03-30] MEDS: methylPREDNISolone SOD SUCC 125 MG VIAL IV PUSH (21:53)
[2024-03-30 21:58] LABS: Base Excess ABG -8.9 mmol/L (0-2); HCO3 ABG 15.7 mmol/L (23-29); Oxygen Saturation ABG 97.6 % (95-97); Oxyhemoglobin 96.3 % (94-100); PCO2 ABG 31.1 mmHg (35-45); PO2 ABG 106.9 mmHg (80-90); pH ABG 7.32 (7.35-7.45)
--- OUTSIDE RECORDS SUMMARY | 2024-03-30 22:01 | XMS_ITS | Patient Health Summary ---
Author Organization [facility] Address [address] [facility] [place] [address] Care Team Providers Care First Aid Teacher Name Role Phone Sara Irene MEDICAL ONCOLOGY PHYSICIAN-CLERICAL SUPPORT SPECIALIST Primary Care Provid er Note from [facility],non-owned Affiliates and Associated Physician Practices is amultiple site organization consisting of ambulatory clinics and hospital sitesin [place], [place], [place] and [place]. This disclosure is being madepursuant to the Care Everywhere program and may not contain all information available regarding this patient. Last updated 17.[facility] Allergies * Codeine(Nausea and/or Vomiting) -Low Criticality [...] propionate (Flonase) 50 MCG/ACT nasal spray(Started 07/06/2022) [place] 1 (one) spray into each nostril once [...] Comments Blood Pressure 128/73 12/15/2023 9:01 AM SENIOR GAMEMASTER Pulse 83 12/15/2023 9:01 AM SENIOR GAMEMASTER Temperature 36.9 C (98.4 F) 11/21/2022 9:41 AM CDT Respiratory Rate 16 06/09/2023 9:34 AM CDT Oxygen Saturation 100% 06/09/2023 9:34 AM CDT Inhaled Oxygen Concentration 40% 11/21/2022 8 :40 AM CDT Weight 74.3 kg (163 lb 12.8 oz) 12/15/2023 9:01 AM SENIOR GAMEMASTER Height 157.5 cm (5' 2 ) 12/15/2023 9:01 AM SENIOR GAMEMASTER Body Mass Index 29.96 12/15/2023 9:01 AM SENIOR GAMEMASTER Procedures * IN LARYNGOSCOPY,FLEX FIBER,DIAGNOSTIC(Performed 12/15/2023) Performed for Hoarseness of voice * IN LARYNGOSCOPY,FLEX FIBER,DIAGNOSTIC(Performed 06/09/2023) Performed for Hoarseness of voice * IN LARYNGOSCOPY,FLEX FIBER,DIAGNOSTIC(Performed 01/06/2023) Performed for Hoarseness of voice * PATHOLOGY TISSUE(Performed 11/21/2022) Performed for Vocal cord dysplasia * ENDOTRACHEAL TUBE NOTE(Performed 11/21/2022) * ENDOTRACHEAL TUBE NOTE(Performed 11/21/2022) * IN LARYNGOSCOPY,DIRCT,OP SCOP,EXC TUMR(Performed 11/21/2022) Performed for Vocal cord dysplasia * IN LARYNGOSCOPY,FLEX FIBER,DIAGNOSTIC(Performed 10/21/2022) Performed for Vocal cord dysplasia * ENDOTRACHEAL TUBE NOTE(Performed 09/21/2022) * PATHOLOGY TISSUE(Performed 09/21/2022) Performed for Leukoplakia of vocal cords * IN LARYNGOSCOPY,DIRCT,OP SCOP,EXC TUMR(Performed 09/21/2022) Performed for Leukoplakia of vocal cords * IN LARYNGOSCOPY,FLEX FIBER,DIAGNOSTIC(Performed 09/02/2022) Performed for Hoarseness of voice, Leukoplakia of vocal cords Results * IN LARYNGOSCOPY,FLEX FIBER,DIAGNOSTIC (12/15/2023 9:29 AM SENIOR GAMEMASTER) Narrative Liang Rob MD - 12/15/2023 9:29 AM SENIOR GAMEMASTER Liang Rob MD 12/15/2023 9:54 AM Procedure [...] Garcia MD PROCEDURE/MINOR SURG ICAL ORDERABLES * IN LARYNGOSCOPY,FLEX FIBER,DIAGNOSTIC (06/09/2023 12:52 PM CDT) Narrative [...] Garcia MD PROCEDURE/MINOR SURG ICAL ORDERABLES * IN LARYNGOSCOPY,FLEX FIBER,DIAGNOSTIC (01/06/2023 11:22 AM SENIOR GAMEMASTER) Narrative Kash Garcia MD - 01/06/2023 11:22 AM SENIOR GAMEMASTER Kash Garcia MD 01/06/2023 11:23 AM Procedure [...] included. Case Report Surgical Pathology Report Case: [id number] Authorizing Provider: Kash Garcia MD Collected: 11/21/2022 08:14 AM Ordering Location: [facility] Received: 11/21/2022 10:54 AM Pathologist: Carol Cho MD Specimen: Vocal Cord Biopsy, left vocal cord lesion 11/25/2022 2:50 PM [facility] Final Diagnosis Vocal cord, left lesion, biopsy (A): - Squamous mucosa with mild dysplasia (see comment) 11/25/2022 2:50 PM [facility] Microscopic Description and Comment Extensive cautery artifact limits evaluation. Microscopic examination is performed and substantiates the above diagnosis. 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 Operative procedure: direct laryngoscopy. Dysplastic mucosa of anterior to middle aspect of the left true vocal fold, hyperkeratotic appearance of right anterior superior aspect of right true vocal fold. 11/25/2022 2:50 PM [facility] Gross Description The requisition and specimen(s) are identified with the patient's name, Arlet Blake. Received in formalin, specimen A , are multiple fragments of granado-brown tissue, 0.2-0.5 cm, 0.5 x 0.3 x 0.2 cm in aggregate. Specimen is submitted in toto in cassette A1. [place] 11/25/2022 2:50 PM [facility] Pathologist Location at [facility] 11/25/2022 2:50 PM [facility] Disclaimer The performance characteristics of all immunohistochemical and indirect immunofluorescence stains (if any) cited in this report were determined by the Histopathology Laboratory of [facility]. Some of these tests were developed by [...] the attending (teaching) pathologist. 11/25/2022 2:50 PM [facility] Embedded Images 11/25/2022 2:50 PM CDT [facility] Biopsy, Excision BIOPSY OF VOCAL CORD / Unknown 11/21/2022 8:14 AM CDT 11/21/2022 10:54 AM CDT Comment:Pre-op diagnosis: Vocal cord dysplasia Kash Garcia MD LAB - PATHOLOGY/CYTO LOGY ORDERABLES [facility] [address] [place], [place] [address] [phone] * ETT LINE PERFORMABLE (11/21/2022 8:03 AM CDT) Narrative Cedrick Reyes MD - 11/21/2022 8:03 AM CDT Cedrick Reyes MD 11/21/2022 8:03 AM Endotracheal Tube Placement: Patient Location: OR. Intubation Event Date/Time: 11/21/2022 7:48 AM Procedure: intubation (13814). Procedure Section: Sedation: under general anesthesia. Indications [...] Event Date/Time: 11/21/2022 7:38 AM Procedure: intubation (30479). Procedure Section: Sedation: under general anesthesia. Indications [...] Valderrama MD GENERAL ANESTHESIA O RDERABLES * IN LARYNGOSCOPY,FLEX FIBER,DIAGNOSTIC (10/21/2022 4:30 PM CDT) Narrative [...] Event Date/Time: 09/21/2022 9:16 AM Procedure: intubation ([id number]). Procedure Section: Sedation: under general anesthesia. Indications [...] Rodger Hooks MD GENERAL ANESTHESIA ORDERABLES * IN LARYNGOSCOPY,FLEX FIBER,DIAGNOSTIC (09/02/2022 8:51 AM CDT) Julio Grover MD - 09/02/2022 8:51 AM CDT Julio Hart MD 09/02/2022 9:24 AM Procedure Note Endoscopy Type: Laryngoscopy without stroboscopy 27812 Endoscope: Flexible 4mm Scope Anesthesia: Lidocaine 2% [...] MD PROCEDURE/MINOR SURG ICAL ORDERABLES Care Teams First Aid Teacher Relationship Specialty Start Date End Date Sara Irene, MEDICAL ONCOLOGY PHYSICIAN-CLERICAL SUPPORT SPECIALIST [address] [place] [address] PCP - General Nurse Practitioner Family 08/29/22
--- OUTSIDE RECORDS SUMMARY | 2024-03-30 22:01 | XMS_ITS | Clinical Summary ---
Author Organization [email or web address] Address [address] [facility] [place] [address] Care Team Providers Care Mobile Designer Name Role Phone Sara Irene DIE MAINTENANCE-SUPPLY CHAIN ASSISTANT Primary Care Provid er Source Comments [email or web address],non-owned Affiliates and Associated Physician Practices is amultiple site organization consisting of ambulatory clinics and hospital sitesin [place], [place], [place] and [place]. This disclosure is being madepursuant to the Care Everywhere program and may not contain all information available regarding this patient. Last updated 17.[email or web address] Allergies Active Allergy Reactions Criticality Noted Date [...] fluticasone propionate (Flonase) 50 MCG/ACT nasal spray [place] 1 (one) spray into each nostril once [...] Comments Blood Pressure 128/73 12/15/2023 9:01 AM WAXING MACHINE OPERATOR HELPER Pulse 83 12/15/2023 9:01 AM WAXING MACHINE OPERATOR HELPER Temperature 36.9 C (98.4 F) 11/21/2022 9:41 AM CDT Respiratory Rate 16 06/09/2023 9:34 AM CDT Oxygen Saturation 100% 06/09/2023 9:34 AM CDT Inhaled Oxygen Concentration 40% 11/21/2022 8 :40 AM CDT Weight 74.3 kg (163 lb 12.8 oz) 12/15/2023 9:01 AM WAXING MACHINE OPERATOR HELPER Height 157.5 cm (5' 2 ) 12/15/2023 9:01 AM WAXING MACHINE OPERATOR HELPER Body Mass Index 29.96 12/15/2023 9:01 AM WAXING MACHINE OPERATOR HELPER Plan of Treatment Upcoming Encounters Date Type Department Care Team (Late st Contact Info) Description 06/14/2024 9:00 AM CDT Office Visit [facility] - ENT [address] [facility], [place] [address] Kash Garcia MD [address] [facility] 2L [place] [address] Health Maintenance Due Date Last [...] age to complete this topic Care Teams Mobile Designer Relationship Specialty Start Date End Date Sara Irene, DIE MAINTENANCE-SUPPLY CHAIN ASSISTANT [address] [place] [address] PCP - General Nurse Practitioner Family 08/29/22
--- OUTSIDE RECORDS SUMMARY | 2024-03-30 22:01 | XMS_ITS | Referral Summary ---
Author Organization [facility] Address [address] [facility] [place] [address] Care Team Providers Care Truck Striker Name Role Phone Sara Irene BULB FARMWORKER-APPLICATION DEVELOPER Primary Care Provid er Source Comments [facility] [email or web address],non-owned Affiliates and Associated Physician Practices is amultiple site organization consisting of ambulatory clinics and hospital sitesin [place], [place], [place] and [place]. This disclosure is being madepursuant to the Care Everywhere program and may not contain all information available regarding this patient. Last updated 17.[email or web address] Allergies Active Allergy Reactions Criticality Noted Date [...] fluticasone propionate (Flonase) 50 MCG/ACT nasal spray [place] 1 (one) spray into each nostril once [...] Comments Blood Pressure 128/73 12/15/2023 9:01 AM PROSTHETICS ASSISTANT Pulse 83 12/15/2023 9:01 AM PROSTHETICS ASSISTANT Temperature 36.9 C (98.4 F) 11/21/2022 9:41 AM CDT Respiratory Rate 16 06/09/2023 9:34 AM CDT Oxygen Saturation 100% 06/09/2023 9:34 AM CDT Inhaled Oxygen Concentration 40% 11/21/2022 8 :40 AM CDT Weight 74.3 kg (163 lb 12.8 oz) 12/15/2023 9:01 AM PROSTHETICS ASSISTANT Height 157.5 cm (5' 2 ) 12/15/2023 9:01 AM PROSTHETICS ASSISTANT Body Mass Index 29.96 12/15/2023 9:01 AM PROSTHETICS ASSISTANT Plan of Treatment Upcoming Encounters Date Type Department Care Team (Late st Contact Info) Description 06/14/2024 9:00 AM CDT Office Visit [facility] [address] [place] [phone] Kash Garcia MD [address] [facility] 2L [place] [phone] Care Teams Truck Striker Relationship Specialty Start Date End Date Sara Irene, BULB FARMWORKER-APPLICATION DEVELOPER [address] [place] [address] PCP - General Nurse Practitioner Family 08/29/22
[2024-03-30 22:03] LABS: Device NON-REBREATHER MASK; Hematocrit 53.2 % (35.0-49.0); Hemoglobin 16.6 g/dL (12.0-15.0); Mean Corpuscular HGB Conc 31.2 g/dL (32-36); Mean Corpuscular Hemoglobin 29.4 pg (27.0-31.0); Mean Corpuscular Volume 94.2 fL (78.0-102.0); Mean Platelet Volume 11.6 fl (9.2-11.8); Modified Allen's Test Pass; Platelet Count Result 315 K/mm3 (150-420); Red Blood Count 5.65 M/mm3 (4.20-5.40); Red Cell Distribution Width 13.4 % (11.6-14.4); Site Drawn RIGHT RADIAL; White Blood Count 15.8 K/mm3 (4.8-10.8)
[2024-03-30 22:15] LABS: Alanine Aminotransferase 32 U/L (14-59); Albumin Level 3.9 g/dL (3.4-5.0); Alkaline Phosphatase 196 U/L (46-116); Anion Gap 24 mmol/L (4-12); Aspartate Amino Transferase 26 U/L (15-37); Bilirubin,Total 0.3 mg/dL (0.00-1.00); Blood Urea Nitrogen 20 mg/dL (7-18); Calcium 9.2 mg/dL (8.5-10.1); Carbon Dioxide 14 mmol/L (21-32); Chloride 100 mmol/L (98-108); Estimated CRCL calculation 32 ml/min; Estimated Glomerular Filt Rate 35; Glucose 259 mg/dL (70-99); Osmolality Calculated 297 mOsm/kg (285-295); Sodium 138 mmol/L (136-145); Troponin I 25.4 ng/L (0.00-60.4)
--- NOTE | 2024-03-30 22:21 | PC.NURSE ---
PATIENT IS CURRENTLY CALM AND COOPERATIVE. BIPAP BEING PLACED BY SPENCER WITH RT. FAMILY IS AT THE BEDSIDE AND HAS BEEN UPDATED ON ALL EVENTS UP UNTIL THEIR ARRIVAL TO ROOM. FAMILY AND PATIENT VERBALIZED UNDERSTANDING
--- NOTE | 2024-03-30 22:39 | PC.NURSE ---
PATIENT IS RESTING QUIETLY ON STRETCHER. BIPAP IN PLACE. FAMILY MEMBERS AT THE BEDSIDE. PATIENT REPORTS THAT SHE FEELS LIKE SHE IS BREATHING BETTER AT THIS TIME.
[2024-03-30] MEDS: SODIUM CHLORIDE 0.9% IV 1,000 ML 999 ML IV CONT (23:11)
[2024-03-30 23:17] LABS: SARS-CoV-2 RNA PCR Negative (Negative)
--- NOTE | 2024-03-30 23:21 | PC.NURSE ---
LIGHTS HAVE BEEN TURNED OFF. FAMILY HAVE GONE HOME. PATIENT IS CURRENTLY RESTING QUIETLY ON STRETCHER. EASY RISE AND FALL OF THE CHEST WHILE ON BIPAP. CALL LIGHT IN ON PATIENTS CHEST
[2024-03-30 23:28] LABS: Influenza A QL RT-PCR Negative (Negative); Influenza B QL RT-PCR Negative (Negative); RSV RNA, RT-PCR Negative (Negative)
--- NOTE | 2024-03-30 23:37 | PC.NURSE ---
PATIENT HAS REPOSITIONED HERSELF FOR COMFORT. BIPAP REMAINS IN PLACE. CALL LIGHT IN REACH
[2024-03-31] VITALS (25 sets, daily range): BP systolic 90–150; BP diastolic 63–97; PULSE 89–122; RESP 18–34; TEMP 36.8; O2SAT 91–100
--- NOTE | 2024-03-31 00:03 | ED.SOB ---
HPI - SOB/Dyspnea General Chief Complaint: Shortness of Breath/Dyspnea Stated Complaint: SOB Time Seen by Provider: 03/30/24 21:34 History of Present Illness HPI Narrative: this is a 63-year-old woman with a history of asthma who presents by EMS with the acute onset of shortness of breath. She was reportedly at an event indoors for most of the evening in which he walked outside in the cold air had a sudden onset of shortness of breath associated with hyperventilation. She was reportedly altered and agitated with EMS and arrives in the ER somewhat confused and very fidgety. Her niece provide some collateral that confirms the above story. Once settled in the emergency department the patient states that she believe she had an asthma attack and that she could breathe. She denies other recent illness denies recent fever chills. Related Data Home Medications ?Medication ?Instructions ?Recorded ?Confirmed ?Last Taken ?Type revefenacin 175 mcg/3 mL solution 175 mcg inhalation DAILY 03/25/24 Unknown History for nebulization (Silvano) Allergies Allergy/AdvReac Type Severity Reaction Status Date / Time codeine Allergy Intermediate Unknown Verified 03/25/24 12:45 morphine Allergy Intermediate Unknown Verified 03/25/24 12:45 Penicillins Allergy Intermediate Unknown Verified 03/25/24 12:45 methylprednisolone AdvReac Intermediate Palpitation Verified 03/25/24 12:45 s [facility] Past Medical History Medical History COPD (chronic obstructive pulmonary disease) Cancer Nocturnal leg cramps Chronic neck pain Overweight (BMI 25.0-29.9) Nicotine dependence in remission Bladder cancer Chronic low back pain Hypertension Hypercholesteremia GERD (gastroesophageal reflux disease) Bipolar 1 disorder Asthma Surgical History Surgical History H/O nephrolithotomy with removal of calculi x2 on right and x3 on left; Bladder tumor Tumor Removal 2011 Hx of cataract surgery (~2014) Hx of tonsillectomy (~1966) History of hysterectomy (~1999) LIBERTAD BSO Family History Family History Mother Family history of coronary artery disease Rectal cancer Hypertension Depression Heart disease Father Family history of coronary artery disease Throat cancer Lung cancer Diabetes mellitus Hypertension Brother Family history of coronary artery disease Alcoholism Diabetes mellitus Heart disease Cerebrovascular accident Sibling Cancer Social History Social History Smoking packs per day: 1 Smoking cigarettes per day: 20.0 Years smoked: 30 Smoking pack-years: 30.00 Smoking status: Former smoker Tobacco type: cigarettes Second hand tobacco smoke exposure: Yes Smoking end date: 01/08/13 Additional smoking assessment comments: Quit 2012. 30 pack-year history Alcohol intake: never Substance use: current Substance use type: marijuana Other substance usage details: daily Last use: last week Do You Feel Safe in your Home?: Yes Lack of Transportation: No Lack of Food: Never True Current Housing: Decline to Answer Concerned About Future Housing: Decline to Answer Difficulty Paying Gas/Electric Bills: Decline to Answer Difficulty Paying for Meds: Decline to Answer Currently Unemployed: Decline to Answer Education: Decline to Answer Difficulty w/ Childcare or Family Care: Decline to Answer Living arrangements: with family Additional living arrangements comments: . No children. Occupation/Education: retired Additional occupation/education comments: Prior Occupation: [employer]. Gender identity (if verbalized by the patient): Female Spiritual care concerns: No Exam Narrative: GEN: Awake, alert, agitated, anxious HEENT: No rhinorrhea noted, mucous membranes moist. No scleral icterus or conjunctival injection. CV: tachycardic rate, regular rhythm, S1S2 no M/G/R. 2+ distal pulses all extremities. No peripheral edema noted. PULM: patient with a mix of adventitious lung sounds she has some rales some wheezing and a few coarse rhonchi GI: Abdomen soft, non -tender to palpation. No rigidity, distention or guarding.? NEURO: Normal speech. No lateralizing or focal deficits noted. Course Course Emergency Course: patient has initially quite restless and agitated at time of arrival. She was initiated on BiPAP and respiratory status and anxiety improved. Lab work and imaging were initiated. She was briefly trialed off of the BiPAP and quickly returned to her agitated, restless, hypoxic state. Patient will need to be maintained on BiPAP until her underlying respiratory pathology is more clearly identified treated. while patient is initially treated for cap with IV antibiotics and fluid bolus on reassessment appears that the patient has not responded well to the fluid in fact may be more volume up this time. will trial of single 40 mg dose of IV Lasix and see how the patient responds to that. Calling for transfer to a higher level of care as patient really needs to be in a facility with ICU capabilities should she deteriorate any further. patient continues to experience some agitation even back on the BiPAP. She has received 40 mg of IV Lasix. She is given an additional nebulizer. And she was given 1 mg of Ativan for anxiety. was noted that patient does meet sepsis criteria given her white cell count, elevated heart rate and elevated respiratory rate. She was treated with broad-spectrum antibiotics aimed at a community acquired pneumonia. She was initially bolused with 1 L of fluid with planned add additional but clinical picture appear to be more fluid overloaded upon further assessment and so additional fluids were discontinued. Blood cultures were drawn prior to administration of the antibiotics. I did consider the possibility of a CTA chest to evaluate for pulmonary embolism in this patient. However I do not believe she is stable enough to go to the CT scanner safely at this point. She is very anxious and desaturates very quickly when stressed do not believe she would tolerate CTA chest at this point in time. She may need to be intubated at the receiving facility in order to undergo this procedure. Vital Signs Vital signs: Vital Signs Temperature 36.4 C 03/30/24 21:32 Pulse Rate 100 03/30/24 21:32 Respiratory Rate 38 H 03/30/24 21:32 Blood Pressure 148/108 H 03/30/24 21:32 Pulse Oximetry 97 03/30/24 21:32 Oxygen Delivery Non-Rebreather Mask 03/30/24 21:32 Oxygen Flow Rate 15 03/30/24 21:32 Temperature 36.4 C 03/30/24 21:32 Pulse Rate 85 03/30/24 23:01 Respiratory Rate 19 03/30/24 23:01 Blood Pressure 96/68 L 03/30/24 23:01 Pulse Oximetry 97 03/30/24 23:01 Oxygen Delivery BiPAP 03/30/24 23:01 Oxygen Flow Rate 15 03/30/24 21:32 MDM - SOB/Dyspnea MDM Narrative Medical decision making narrative: Patient was placed in Room #:? Seven Independent Historian: patient's family members External Source Review: med records Differential diagnosis includes but not limited to:? asthma exacerbation, COPD exacerbation, community-acquired pneumonia, pulmonary embolism Medications were Reviewed: medical history, medical records Independently Interpreted by me: labs Medications, treatment, ED course: patient was started on BiPAP, given a dose of Solu-Medrol. chest x-ray looked like diffuse pneumonia versus pulmonary edema. Started on treatment for cap with ceftriaxone and azithromycin. She did receive a 1 L fluid bolus but decided to hold any additional fluid given that pulmonary edema is also a possibility. Social situation impacting patients care: lives independently in the community Shared decision making:? transfer to a higher level of care Accepting physician: Dr. Siddiqui at [facility] DISCHARGE DIAGNOSIS: Acute hypoxic respiratory failure secondary to pneumonia DISPOSITION: transfer to a higher level of care-[facility] CONDITION AT DISCHARGE: guarded Lab Data 03/30/24 22:01 03/30/24 22:01 Labs: Lab Results 03/30/24 03/30/24 Range/Units 22:01 22:10 WBC 15.8 H (4.8-10.8) K/mm3 RBC 5.65 H (4.20-5.40) M/mm3 Hgb 16.6 H (12.0-15.0) g/dL Hct 53.2 H (35.0-49.0) % MCV 94.2 (78.0-102.0) fL MCH 29.4 (27.0-31.0) pg MCHC 31.2 L (32-36) g/dL RDW 13.4 (11.6-14.4) % Plt Count 315 (150-420) K/mm3 MPV 11.6 (9.2-11.8) fl Sodium 138 (136-145) mmol/L Potassium 3.0 L (3.5-5.1) mmol/L Chloride 100 (98-108) mmol/L Carbon Dioxide 14 L (21-32) mmol/L Anion Gap 24 H (4-12) mmol/L BUN 20 H (7-18) mg/dL Creatinine 1.51 H (0.55-1.02) mg/dL Estim Creat Clear Calc 32 ml/min Estimated GFR 35 L (59 - ) Glucose 259 H (70-99) mg/dL Calculated Osmolality 297 H (285-295) mOsm/kg Calcium 9.2 (8.5-10.1) mg/dL Total Bilirubin 0.3 (0.00-1.00) mg/dL AST 26 (15-37) U/L ALT 32 (14-59) U/L Alkaline Phosphatase 196 H (46-116) U/L Troponin I 25.4 (0.00-60.4) ng/L Total Protein 8.0 (6.4-8.2) g/dL Albumin 3.9 (3.4-5.0) g/dL Influenza A (RT-PCR) Negative (Negative) Influenza B (RT-PCR) Negative (Negative) RSV (RT-PCR) Negative (Negative) SARS-CoV-2 RNA (RT-PCR) Negative (Negative) ABG Data ABG results: 03/30/24 22:01 Puncture Site Right radial ABG pH 7.32 L ABG pCO2 31.1 L ABG pO2 106.9 H ABG HCO3 15.7 L ABG O2 Saturation 97.6 H ABG Base Excess -8.9 L Oxyhemoglobin 96.3 O2 Delivery Device Non-rebreather mask O2 Liters/Min 15.0 Discharge Plan Discharge Clinical Impression: Acute and chronic respiratory failure with hypoxia, CAP (community acquired pneumonia) Patient Disposition: Acute Care Hospital Condition: Guarded Prognosis Instructions: Community Acquired Pneumonia (ED) Additional Instructions: you're being transferred to a higher level of care Patient Language: Bulgarian Prescriptions: No Action Yupelri 175 mcg/3 mL solution for nebulization 175 mcg inhalation DAILY albuterol sulfate [ProAir HFA] 90 mcg/actuation HFA aerosol inhaler 1 puff INHALATION Q4H PRN (Reason: asthma) Qty: 18 3RF rosuvastatin 20 mg tablet See Rx Instructions .ROUTE .COMPLEX Qty: 90 3RF Dose Instruction: TAKE 1 TABLET BY MOUTH EVERY DAY Rx Instructions: TAKE 1 TABLET BY MOUTH EVERY DAY Myrbetriq 25 mg tablet extended release 24 hr See Rx Instructions .ROUTE .COMPLEX Qty: 90 1RF Dose Instruction: TAKE 1 TABLET BY MOUTH EVERY DAY Rx Instructions: TAKE 1 TABLET BY MOUTH EVERY DAY loratadine 10 mg tablet See Rx Instructions .ROUTE .COMPLEX Qty: 90 1RF Dose Instruction: TAKE 1 TABLET BY MOUTH EVERY DAY Rx Instructions: TAKE 1 TABLET BY MOUTH EVERY DAY potassium chloride [K-Tab] 20 mEq tablet extended release 40 meq PO DAILY@0800 Qty: 6 0RF montelukast 10 mg tablet See Rx Instructions .ROUTE .COMPLEX Qty: 90 3RF Dose Instruction: TAKE 1 TABLET BY MOUTH EVERY DAY Rx Instructions: TAKE 1 TABLET BY MOUTH EVERY DAY fluticasone propionate 50 mcg/actuation spray,suspension See Rx Instructions .ROUTE .COMPLEX Qty: 16 3RF Dose Instruction: SPRAY 1 SPRAY INTO EACH NOSTRIL EVERY DAY Rx Instructions: SPRAY 1 SPRAY INTO EACH NOSTRIL EVERY DAY ipratropium-albuterol 0.5 mg-3 mg(2.5 mg base)/3 mL solution for nebulization See Rx Instructions .ROUTE .COMPLEX Qty: 90 11RF Dose Instruction: USE 1 VIAL IN NEBULIZER 3 TIMES DAILY Rx Instructions: USE 1 VIAL IN NEBULIZER 3 TIMES DAILY cyclobenzaprine 10 mg tablet 10 mg PO .HS PRN (Reason: muscle spasm) Qty: 20 0RF fluticasone furoate-vilanterol [Breo Ellipta] 100-25 mcg/dose blister with device See Rx Instructions .ROUTE .COMPLEX Qty: 60 2RF Dose Instruction: INHALE 1 PUFF BY MOUTH EVERY DAY Rx Instructions: INHALE 1 PUFF BY MOUTH EVERY DAY paroxetine HCl 20 mg tablet See Rx Instructions .ROUTE .COMPLEX Qty: 90 1RF Dose Instruction: TAKE 1 TABLET BY MOUTH EVERY DAY Rx Instructions: TAKE 1 TABLET BY MOUTH EVERY DAY omeprazole 20 mg capsule,delayed release(DR/EC) See Rx Instructions .ROUTE .COMPLEX Qty: 90 0RF Dose Instruction: TAKE 1 CAP BY MOUTH EVERY DAY Rx Instructions: TAKE 1 CAP BY MOUTH EVERY DAY hydrochlorothiazide 25 mg tablet See Rx Instructions .ROUTE .COMPLEX Qty: 90 1RF Dose Instruction: TAKE 1 TABLET BY MOUTH EVERY DAY Rx Instructions: TAKE 1 TABLET BY MOUTH EVERY DAY Follow-up/Referrals: Aime Frazier, DO [Primary Care Provider] -
--- NOTE | 2024-03-31 00:40 | PC.NURSE ---
PATIENT WAS PLACED ON NASAL CANNULA AT 4 LITERS.
--- NOTE | 2024-03-31 00:47 | PC.NURSE ---
PATIENT IS CURRENTLY RESTING ON STRETCHER. CPAP IN PLACE. WOB NON LABORED AT THIS TIME. CALL LIGHT IN REACH
--- NOTE | 2024-03-31 00:50 | PC.NURSE ---
NOTIFIED TAYLER WITH LAB THAT ER PROVIDER WILL BE PLACING ORDERS FOR BLOOD CULTURES.
--- NOTE | 2024-03-31 00:55 | PC.NURSE ---
PATIENT TRYING TO GET OUT OF THE BED. STATES SHE CANT BREATHE. BIPAP PLACED BACK ON PATIENT. RESTLESS. ENCOURAGED PATIENT TO SLOW BREATHING AND BREATHE WITH MACHINE. PATIENT STATES THAT SHE IS HOT. ROOM MADE COOLER FOR PATIENT.
--- NOTE | 2024-03-31 01:34 | PC.NURSE ---
PATIENT RESTING ON STRETCHER. LARGE BOWEL MOVEMENT FROM PATIENT. CLEANED UP, REPOSITIONED FOR COMFORT. CALL LIGHT IN REACH
[2024-03-31] MEDS: LORazepam INJ (*CRX) 2 MG/ML VIAL 1 MG IV PUSH ×2 (01:57→07:33)
[2024-03-31] MEDS: IPRATROPIUM 0.5 MG/ALBUTEROL SULFATE 2.5 MG AMPUL.NEB 3 ML INHALATION (01:57)
[2024-03-31] MEDS: FUROSEMIDE INJ 40 MG/4 ML VIAL IV PUSH (01:58)
[2024-03-31] MEDS: AZITHROMYCIN 500 MG/NS 250 ML 500 MG/250 ML BAG 250 MG IVPB (02:23)
--- NOTE | 2024-03-31 02:30 | PC.NURSE ---
PATIENT IS CURRENTLY RESTING QUIETLY ON STRETCHER. BIPAP IN PLACE. CALL LIGHT IN REACH. RESP EVEN AND UNLABORED
--- NOTE | 2024-03-31 03:02 | PC.NURSE ---
ASSISTED PATIENT WITH BEDPAN
--- NOTE | 2024-03-31 03:59 | PC.NURSE ---
RESTING QUIETLY ON STRETCHER WITH BIPAP IN PLACE. CALL LIGHT IN REACH. RESP EVEN AND UNLABORED.
--- NOTE | 2024-03-31 05:52 | PC.NURSE ---
PATIENT REPOSITIONED SELF FOR COMFORT. HELPED PATIENT GET COVERED UP WITH BLANKETS. CALL LIGHT IN REACH. BIPAP IN PLACE. RESP EVEN AND UNLABORED.
--- NOTE | 2024-03-31 07:04 | PC.NURSE ---
REPORT GIVEN TO SHEILA PRATT
--- NOTE | 2024-04-01 12:57 | PC.NURSE ---
PRELIMINARY BLOOD CULTURE NO GROWTH TO DATE
== END 2024-03-31 07:45 | disposition short-term general hospital (02) ==
PROVIDERS: Emergency Provider Family Medicine; PCP Family Medicine
DX: J96.11 Chronic respiratory failure with hypoxia (principal); J18.9 Pneumonia, unspecified organism; J44.9 Chronic obstructive pulmonary disease, unspecified; I10 Essential (primary) hypertension; Z85.51 Personal history of malignant neoplasm of bladder; Z87.891 Personal history of nicotine dependence; Z20.822 Contact with and (suspected) exposure to COVID-19
CPT/HCPCS: 36415; 36600; 71045; 80053; 82805; 84484; 85027; 87040; 87637; 93005; 96361; 96365; 96368; 96375; 96376; 99285; J0456; J0696; J1940; J2060; J2919; J7030

== ENCOUNTER 2024-04-12 11:13 | Outpatient (CLI) | payer MEDICARE, SELFPAY ==
[2024-04-12 11:42] LABS: Basophils Absolute Auto 0.09 K/mm3 (0.00-0.10); Basophils Percent Auto 1.1 % (0.0-1.0); Eosinophils Absolute Auto 0.21 K/mm3 (0.02-0.50); Eosinophils Percent Auto 2.6 % (1.0-6.0); Hematocrit 41.2 % (35.0-49.0); Hemoglobin 13.3 g/dL (12.0-15.0); Immature Granulocyte Absolute 0.04 K/mm3 (0.00-0.00); Immature Granulocyte Percent A 0.5 % (0.0-0.0); Lymphocytes Absolute Auto 3.02 K/mm3 (1.10-4.50); Lymphocytes Percent Auto 37.4 % (18.0-42.0); Mean Corpuscular HGB Conc 32.3 g/dL (32-36); Mean Corpuscular Hemoglobin 29.6 pg (27.0-31.0); Mean Corpuscular Volume 91.8 fL (78.0-102.0); Monocytes Absolute Auto 0.54 K/mm3 (0.10-0.90); Monocytes Percent Auto 6.7 % (2.0-11.0); Neutrophils Absolute Auto 4.17 K/mm3 (1.70-7.20); Neutrophils Percent Auto 51.7 % (50.0-70.0); Platelet Count Result 237 K/mm3 (150-420); Red Blood Count 4.49 M/mm3 (4.20-5.40); Red Cell Distribution Width 13.9 % (11.6-14.4); White Blood Count 8.1 K/mm3 (4.8-10.8)
--- OUTSIDE RECORDS SUMMARY | 2024-04-12 12:09 | XMS_ITS | Referral Summary ---
Author Organization [facility] Address [address] [place] [address] Care Team Providers Care Air Support Operations Operator Name Role Phone Sara Irene COAL FEEDER OPERATOR-CHARGE MASTER COORDINATOR Primary Care Provid er Source Comments [facility],non-owned Affiliates and Associated Physician Practices is amultiple site organization consisting of ambulatory clinics and hospital sitesin [place], [place]. This disclosure is being madepursuant to the Care Everywhere program and may not contain all information available regarding this patient. Last updated 17.[facility] Encounters Date Type Department Care Team Description 03/31/2024 9:06 AM SYSTEMS ENGINEER - 04/03/2024 11:42 AM [facility] Hospital Encounter [facility] [address] [address] Juliana Siddiqui MD Sood, Anshu, MD Choudhary, Swati, MD Hospitalist Discharge Disposition: Home or Self Care 04/01/2024 8:30 AM SYSTEMS ENGINEER - 04/01/2024 10:00 AM [facility] Surgery [facility] - Cardiac Geological Engineer [address] [address] Chris Conte MD Left Heart Cath 03/31/2024 Travel from Last 3 Months Allergies Active Allergy Reactions Criticality Noted Date Comments Codeine Nausea and/or Vomiting Low 05/12/2020 Methylprednisolone Palpitations 03/31/2024 Morphine Nausea and/or Vomiting Low 01/22/2013 Dizziness [...] tablet by mouth once daily 08/15/2022 Active PARoxetine (Paxil) 20 MG tablet Take 1 (one) tablet by mouth once daily 08/24/2022 Active Myrbetriq 25 MG tablet Take 1 (one) tablet by mouth once daily 05/27/2022 Active fluticasone propionate (Flonase) 50 MCG/ACT nasal spray [place] 1 (one) spray into each nostril once daily 07/06/2022 Active omeprazole (PriLOSEC) 20 MG capsule Take 1 (one) capsule by mouth daily before breakfast Active acetaminophen (Tylenol) 500 MG tablet Take 1 (one) tablet by mouth every 6 hours as needed for Fever or Pain Maximum allowable Acetaminophen amount = 4 Grams (4000 mg) / 24 hours. 60 tablet 09/21/2022 Active albuterol (5 MG/ML) 0.5% 2.5 mg in [...] (one) puff by mouth once daily Active albuterol HFA (Proventil; Ventolin; Proair) 108 (90 Base) MCG/ACT inhaler Inhale 2 (two) puffs by mouth every 6 hours as needed Active aspirin EC (Ecotrin) 81 MG tablet Take 1 (one) tablet by mouth once daily 30 tablet 04/03/2024 Active furosemide (Lasix) 40 MG tablet Take 1 (one) tablet by mouth once daily for 30 days 30 tablet 04/03/2024 5 Active metoprolol succinate XL 24hr (Toprol XL) 25 MG tablet Take 1 (one) tablet by mouth at bedtime for 30 days 30 tablet 04/03/2024 5 Active nitroGLYCERIN (Nitrostat) 0.4 MG tablet Dissolve 1 (one) tablet under the tongue every 5 minutes as needed for Angina 30 tablet 04/03/2024 Active potassium chloride ER (K-TAB) 20 MEQ tablet Take 1 (one) tablet by mouth daily with breakfast for 30 days 30 tablet 04/04/2024 Active spironolactone (Aldactone) 25 MG tablet Take 1 (one) tablet by mouth once daily for 30 days 30 tablet 04/03/2024 Active Oxygen Oxygen while sleeping at 2 L/min via nasal cannula - Estimate length of need (number of months): Lifetime 1 Each 04/03/2024 Active loratadine (Claritin) 10 MG tablet Take 1 (one) tablet by mouth once daily 08/24/2022 5 Discontinue d(List Clean-Up) Symbicort 160-4.5 MCG/ACT inhaler Inhale 2 (two) puffs by mouth 2 times daily 08/17/2022 5 Discontinue d(List Clean-Up) Combivent Respimat 20-100 MCG/ACT inhaler Inhale 1 (one) puff by mouth as directed 11/10/2021 5 Discontinue d(List Clean-Up) diclofenac sodium EC (Voltaren) 50 MG tablet Take 1 (one) tablet by mouth 3 times daily 04/06/2022 5 Discontinue d(List Clean-Up) Potassium Chloride Radha ER (KLOR-CON M20 PO) Take 2 tablets by mouth once daily 5 Discontinue d(List Clean-Up) hydroCHLOROthiaz dalila (Hydrodiuril) 25 MG tablet Take 1 (one) tablet by mouth once daily 5 Discontinue d(List Clean-Up) ibuprofen (Motrin) 800 MG tablet Take 1 (one) tablet by mouth every 6 hours as needed for Pain 30 tablet 09/21/2022 5 Discontinue d(List Clean-Up) revefenacin (Yupelri) 175 MCG/3ML nebulizer solution Inhale 175 (one hundred seventy five) mcg by mouth once daily 5 Discontinue d(List Clean-Up) Active Problems Problem Noted Date Diagnosed Date Sepsis with acute hypoxic re spiratory failure, due to unspecified organism, unspecified whether septic shock present 03/31/2024 Hoarseness of voice 12/15/2023 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 Never 03/31/2024 Q2: How many drinks containi ng alcohol do you have on a typical day when you are drinking? Patient does not drink Q3: How often do you have si x or more drinks on one occasion? Never 03/31/2024 Overall Financial Resource Strain (CARDIA) Answe r Date Recorded How hard is it for you to pa y for the very basics like food, housing, medical care, and heating? Not hard at all 04/01/2024 [facility] [place] [facility] - Occupational Stress Questionnaire Answer Date Recorded Do you feel stress - tense, restless, nervous, or anxious, or unable to sleep at night because your mind is troubled all the time - these days? Only a little 03/31/2024 Hunger Vital Sign Answer Date Recorded Within the past 12 months, y ou worried that your food would run out before you got the money to buy more. Never true 04/01/19 25 Within the past 12 months, t he food you bought just didn't last and you didn't have money to get more. Never true 04/01/2024 PRAPARE - Transportation Answer Date Re corded In the past 12 months, has l ack of transportation kept you from medical appointments or from getting medications? No 03/10 In the past 12 months, has l ack of transportation kept you from meetings, work, or from getting things needed for daily living? No 03/31/2024 Housing Stability Vital Sign Answer Talon e Recorded In the last 12 months, was t here a time when you were not able to pay the mortgage or rent on time? No 03/31/2024 In the past 12 months, how m any times have you moved where you were living? 1 03/31/2024 At any time in the past 12 m [facility], were you homeless or living in a halfway (including now)? No 03/31/2024 Sex and Gender Information Value Date Recorded Sex Assigned at Not on file Gender Identity Not on file Sexual Orientation Not on file Last Filed Vital Signs Vital Sign Reading Time Taken Comments Blood Pressure 142/99 04/03/2024 7:59 AM SYSTEMS ENGINEER Pulse 89 04/03/2024 9:18 AM SYSTEMS ENGINEER Temperature 36.6 C (97.9 F) 04/03/2024 7:59 AM SYSTEMS ENGINEER Respiratory Rate 18 04/03/2024 9:18 AM SYSTEMS ENGINEER Oxygen Saturation 99% 04/03/2024 9:18 AM SYSTEMS ENGINEER Inhaled Oxygen Concentration 40% 03/31/2024 4 :59 PM SYSTEMS ENGINEER Weight 73.5 kg (162 lb) 04/02/2024 4:11 AM SYSTEMS ENGINEER Height 157.5 cm (5' 2 ) 03/31/2024 10:03 AM SYSTEMS ENGINEER Body Mass Index 29.63 03/31/2024 10:03 AM SYSTEMS ENGINEER Functional Status Functional Status Response Date of Assess ment Is person deaf or have serious hearing difficult y? No 03/31/2024 Is person blind or have serious difficulty seein g? No 03/31/2024 Does person have serious dif ficulty walking/climbing stairs? No 03/31/2024 Does person have difficulty dressing/bathing? No 03/31/2024 Does person have difficulty doing errands alone? No 03/31/2024 Cognitive Status Response Date of Assessm ent Does person have difficulty concentrating/remembering/making decisions? No 03/31/2024 Plan of Treatment Upcoming Encounters Date Type Department Care Team (Late st Contact Info) Description 06/14/2024 9:00 AM CDT Office Visit [facility] - ENT [address], [place] [address] Kash Garcia MD [address] [place] [address] Procedures Procedure Name Priority Date/Time Associated Diagnosis Comments CARDIAC RHYTHM STRIP ORDER 04/05/2024 1:14 AM SYSTEMS ENGINEER GLUCOSE - POINT OF CARE Routine 04/03/2024 7:59 AM SYSTEMS ENGINEER PHOSPHORUS BLOOD STAT 04/03/2024 7:31 AM SYSTEMS ENGINEER MAGNESIUM BLOOD STAT 04/03/2024 7:31 AM SYSTEMS ENGINEER BASIC METABOLIC PANEL (CALCIUM TOTAL) STAT 04/03/2024 7:31 AM SYSTEMS ENGINEER PT-INR Routine 04/03/2024 7:19 AM SYSTEMS ENGINEER CBC W AUTO DIFFERENTIAL Routine 04/03/2024 7:19 AM SYSTEMS ENGINEER GLUCOSE - POINT OF CARE Routine 04/02/2024 4:54 PM SYSTEMS ENGINEER GLUCOSE - POINT OF CARE Routine 04/02/2024 4:41 PM SYSTEMS ENGINEER GLUCOSE - POINT OF CARE Routine 04/02/2024 11:28 AM SYSTEMS ENGINEER REJECTED SPUTUM GRAM STAIN Routine 04/02/2024 11:28 AM SYSTEMS ENGINEER GLUCOSE - POINT OF CARE Routine 04/02/2024 6:19 AM SYSTEMS ENGINEER PROCALCITONIN LEVEL AM Draw 04/02/2024 5 :54 AM SYSTEMS ENGINEER BASIC METABOLIC PANEL (CALCIUM TOTAL) AM Draw 04/02/2024 5:54 AM SYSTEMS ENGINEER PHOSPHORUS BLOOD AM Draw 04/02/2024 5:54 AM SYSTEMS ENGINEER MAGNESIUM BLOOD Routine 04/02/2024 5:54 AM SYSTEMS ENGINEER PT-INR Routine 04/02/2024 5:54 AM SYSTEMS ENGINEER CBC W AUTO DIFFERENTIAL Routine 04/02/2024 5:54 AM SYSTEMS ENGINEER XR CHEST 1VW PORTABLE Routine 04/02/2024 5:40 AM SYSTEMS ENGINEER Acute respiratory failure with hypoxia (HCC) GLUCOSE - POINT OF CARE Routine 04/01/2024 8:12 PM SYSTEMS ENGINEER GLUCOSE - POINT OF CARE Routine 04/01/2024 4:35 PM SYSTEMS ENGINEER SARS-COV-2 (COVID-19) FLU A/B RSV PCR RAPID STAT 04/01/2024 1:24 PM SYSTEMS ENGINEER GLUCOSE - POINT OF CARE Routine 04/01/2024 11:54 AM SYSTEMS ENGINEER ECHO COMPLETE W CONTRAST Routine 04/01/2024 11:34 AM SYSTEMS ENGINEER Sepsis with acute hypoxic respiratory failure, due to unspecified organism, unspecified whether septic shock present (HCC) CCL LEFT HEART CATH Routine 04/01/2024 9 :32 AM SYSTEMS ENGINEER PTT Timed 04/01/2024 7:06 AM SYSTEMS ENGINEER PT-INR Routine 04/01/2024 7:06 AM SYSTEMS ENGINEER HEMOGLOBIN A1C Routine 04/01/2024 7:06 AM SYSTEMS ENGINEER CBC W AUTO DIFFERENTIAL AM Draw 04/01/2024 7:06 AM SYSTEMS ENGINEER GLUCOSE - POINT OF CARE Routine 04/01/2024 6:41 AM SYSTEMS ENGINEER LIPID PROFILE AM Draw 04/01/2024 6:41 AM SYSTEMS ENGINEER BASIC METABOLIC PANEL (CALCIUM TOTAL) AM Draw 04/01/2024 6:41 AM SYSTEMS ENGINEER PTT Timed 03/31/2024 11:32 PM SYSTEMS ENGINEER GLUCOSE - POINT OF CARE Routine 03/31/2024 4:50 PM SYSTEMS ENGINEER PTT Routine 03/31/2024 4:39 PM SYSTEMS ENGINEER PT-INR Routine 03/31/2024 4:39 PM SYSTEMS ENGINEER TROPONIN-I HIGH SENSITIVE Routine 03/31/2024 3:[address] ANGIO CHEST PULM EMBOLISM Routine 03/31/2024 2:32 PM SYSTEMS ENGINEER Sepsis with acute hypoxic respiratory failure, due to unspecified organism, unspecified whether septic shock present (HCC) LACTIC ACID BLOOD STAT 03/31/2024 1:3 6 PM SYSTEMS ENGINEER TROPONIN-I HIGH SENSITIVE STAT 03/31/2024 12:46 PM SYSTEMS ENGINEER GLUCOSE - POINT OF CARE Routine 03/31/2024 12:09 PM SYSTEMS ENGINEER CULTURE BLOOD STAT 03/31/2024 10:28 AM SYSTEMS ENGINEER ERYTHROCYTE SEDIMENTATION RATE Routine 03/31/2024 10:16 AM SYSTEMS ENGINEER PROCALCITONIN LEVEL STAT 03/31/2024 1 0:16 AM SYSTEMS ENGINEER B-TYPE NATRIURETIC PEPTIDE STAT 03/31/2024 10:16 AM SYSTEMS ENGINEER CULTURE BLOOD STAT 03/31/2024 10:16 AM SYSTEMS ENGINEER XR CHEST 1VW PORTABLE Routine 03/31/2024 9:52 AM SYSTEMS ENGINEER Sepsis with acute hypoxic respiratory failure, due to unspecified organism, unspecified whether septic shock present (HCC) BLOOD GASES ARTERIAL RT Routine 03/31/2024 9:29 AM SYSTEMS ENGINEER C-REACTIVE PROTEIN Routine 03/31/2024 9: 25 AM SYSTEMS ENGINEER TSH REFLEX FREE T4 Routine 03/31/2024 9: 25 AM SYSTEMS ENGINEER LACTIC ACID BLOOD STAT 03/31/2024 9:2 5 AM SYSTEMS ENGINEER COMPREHENSIVE METABOLIC PANEL STAT 03/31/2024 9:25 AM SYSTEMS ENGINEER CBC W AUTO DIFFERENTIAL STAT 03/31/2024 9:25 AM SYSTEMS ENGINEER PT EVAL AND TREAT Routine 03/31/2024 9:2 3 AM SYSTEMS ENGINEER OT EVAL AND TREAT Routine 03/31/2024 9:2 3 AM SYSTEMS ENGINEER from Last 3 Months Results * CARDIAC RHYTHM STRIP ORDER (04/05/2024 1:14 AM SYSTEMS ENGINEER) Narrative 04/05/2024 1:14 AM SYSTEMS ENGINEER Ordered by an unspecified provider. Scanned Document CARDIAC SERVICES ORD ERABLES * (ABNORMAL) GLUCOSE - POINT OF CARE (04/03/2024 7:59 AM SYSTEMS ENGINEER) Only the most recent of11 resultswithin the time period is included. Glucose WB/POC 102(H) 70 - 99 mg/dL 04/03/2024 8:10 AM SYSTEMS ENGINEER [facility] Specimen Type Cap Fingerstick 2024 8:10 AM SYSTEMS ENGINEER [facility] Blood BLOOD SPECIMEN / Unknown 04/03/2024 7:59 AM SYSTEMS ENGINEER 04/03/2024 8:10 AM SYSTEMS ENGINEER Elodia Varela MD LAB - POINT OF CARE ORDERABLES [facility] [address] [address] * (ABNORMAL) BASIC METABOLIC PANEL (CALCIUM TOTAL) (04/03/2024 7:31 AM SYSTEMS ENGINEER) Only the most recent of3 resultswithin the time period is included. Pathologist [facility] Glucose 113(H) 70 - 99 mg/dL 04/03/2024 8:[address] [facility] Sodium 139 136 - 145 mmol/L 04/03/2024 8:[address] [facility] Potassium 4.3 3.5 - 5.1 mmol/L 04/03/2024 8:[address] [facility] Chloride 107 98 - 107 mmol/L 04/03/2024 8:[address] [facility] CO2 20(L) 22 - 29 mmol/L 04/03/2024 8:[address] [facility] Calcium 9.9 8.4 - 10.4 mg/dL 04/03/2024 8:[address] [facility] Anion Gap 12 6 - 16 mmol/L 04/03/2024 8:[address] [facility] BUN 28(H) 7 - 26 mg/dL 04/03/2024 8:[address] [facility] Creatinine 0.80 0.57 - 1.11 mg/dL 04/03/2024 8:[address] [facility] eGFR by CKD-EPI 83(L) >=90 mL/min/1.7 3 m2 04/03/2024 8:[address] [facility] Blood BLOOD SPECIMEN / Unknown Lab Venipuncture / Unknown 04/03/2024 7:31 AM SYSTEMS ENGINEER 04/03/2024 7:37 AM SYSTEMS ENGINEER Mariah Chavez PA-C LAB - CHEMISTRY ORDERABLES [facility] [address] [id number] * PHOSPHORUS BLOOD (04/03/2024 7:31 AM SYSTEMS ENGINEER) Only the most recent of2 resultswithin the time period is included. Phosphorus 3.2 2.5 - 4.5 mg/dL 04/03/2024 8:[address] [facility] Blood BLOOD SPECIMEN / Unknown Lab Venipuncture / Unknown 04/03/2024 7:31 AM SYSTEMS ENGINEER 04/03/2024 7:37 AM SYSTEMS ENGINEER Mariah Chavez PA-C LAB - CHEMISTRY ORDERABLES Performing Organization Address [facility] Co de Phone Number [facility] [address] [place] [address] * MAGNESIUM BLOOD (04/03/2024 7:31 AM SYSTEMS ENGINEER) Only the most recent of2 resultswithin the time period is included. Magnesium 2.1 1.6 - 2.6 mg/dL 04/03/2024 8:[address] [facility] Blood BLOOD SPECIMEN / Unknown Lab Venipuncture / Unknown 04/03/2024 7:31 AM SYSTEMS ENGINEER 04/03/2024 7:37 AM SYSTEMS ENGINEER Mariah Chavez PA-C LAB - CHEMISTRY ORDERABLES Performing Organization Address [facility] de Phone Number [facility] [address] [place] [id number] * PT-INR (04/03/2024 7:19 AM SYSTEMS ENGINEER) Only the most recent of4 resultswithin the time period is included. PT 13.6 12.1 - 14.8 sec 04/03/2024 7:[address] [facility] INR 1.0 0.9 - 1.1 04/03/2024 7:[address] [facility] Blood BLOOD SPECIMEN / Unknown Lab Venipuncture / Unknown 04/03/2024 7:19 AM SYSTEMS ENGINEER 04/03/2024 7:31 AM SYSTEMS ENGINEER Narrative [facility] - 04/03/2024 7:48 AM SYSTEMS ENGINEER Conventional Warfarin Anticoagulant Therapy: INR Reference Range: 2.0-3.0 Intensive Warfarin Anticoagulant Therapy: INR Reference Range: 2.5-3.5 Emanuel Simons MD LAB - COAGULA TION ORDERABLES [facility] [address] [id number] * CBC W AUTO DIFFERENTIAL (04/03/2024 7:19 AM [facility]) Only the most recent of4 resultswithin the time period is included. WBC 7.5 4.0 - 10.7 x10E9/L 04/03/2024 8:[address] [facility] RBC Count 4.92 3.90 - 5.20 x10E12/L 04/03/2024 8:[address] [facility] Hemoglobin 14.7 11.9 - 15.8 g/dL 04/03/2024 8:[address] [facility] Hematocrit 42.5 34.8 - 46.1 % 04/03/2024 8:[address] [facility] MCV 86.4 80.0 - 98.0 fL 04/03/2024 8:[address] [facility] MCH 29.9 26.7 - 33.6 pg 04/03/2024 8:[address] [facility] MCHC 34.6 31.7 - 36.3 g/dL 04/03/2024 8:[address] [facility] RDW-CV 13.7 11.3 - 14.8 % 04/03/2024 8:[address] [facility] Platelet Count 209 150 - 420 x10E9/L 04/03/2024 8:[address] [facility] MPV 11.2 7.8 - 11.4 fL 04/03/2024 8:[address] [facility] Neutrophil % 64.5 41.0 - 74.0 % 04/03/2024 8:[address] [facility] Lymphocyte % 26.1 17.0 - 47.0 % 04/03/2024 8:[address] [facility] Monocyte % 6.6 3.0 - 11.0 % 04/03/2024 8:[address] [facility] Eosinophil % 1.3 0.0 - 7.0 % 04/03/2024 8:[address] [facility] Basophil % 1.2 0.0 - 1.6 % 04/03/2024 8:[address] [facility] Immature Granulocytes % 0.3 0.0 - 1.0 % 04/03/2024 8:[address] [facility] Neutrophil Absolute 4.82 1.60 - 7.50 x10E9/L 04/03/2024 8:[address] [facility] Lymphocyte Absolute 1.95 1.00 - 4.40 x10E9/L 04/03/2024 8:[address] [facility] Monocyte Absolute 0.49 0.15 - 1.00 x10E9/L 04/03/2024 8:[address] [facility] Eosinophil Absolute 0.10 0.00 - 0.60 x10E9/L 04/03/2024 8:[address] [facility] Basophil Absolute 0.09 0.00 - 0.13 x10E9/L 04/03/2024 8:[address] [facility] Blood BLOOD SPECIMEN / Unknown Lab Venipuncture / Unknown 04/03/2024 7:19 AM SYSTEMS ENGINEER 04/03/2024 7:31 AM SYSTEMS ENGINEER Emanuel Simons MD LAB - HEMATOL OGY ORDERABLES [facility] [address] [place] [address] * REJECTED SPUTUM GRAM STAIN (04/02/2024 11:28 AM SYSTEMS ENGINEER) Gram Stain < 25 per low power field Polymorphonuclear cells. Consistent with poor quality specimen. 04/02/2024 3:51 PM SYSTEMS ENGINEER [facility] MICROBIOLOGY Gram Stain Recollect if clinically indicated. 04/02/2024 3:51 PM SYSTEMS ENGINEER [facility] MICROBIOLOGY Microbiology SPUTUM / Unknown Collection / Unknown 04/02/2024 11:28 AM SYSTEMS ENGINEER 04/02/2024 11:34 AM SYSTEMS ENGINEER Wei Greco MD LAB - MICROBIOLOGY O RDERABLES [facility] MICROBIOLOGY [address] [address] [phone] * PROCALCITONIN LEVEL (04/02/2024 5:54 AM SYSTEMS ENGINEER) Only the most recent of2 resultswithin the time period is included. Procalcitonin 0.07 <0.10 ng/mL 04/02/2024 6:56 AM SYSTEMS ENGINEER [facility] Blood BLOOD SPECIMEN / Unknown Lab Venipuncture / Unknown 04/02/2024 5:54 AM SYSTEMS ENGINEER 04/02/2024 6:17 AM SYSTEMS ENGINEER Narrative [facility] - 04/02/2024 6:56 AM SYSTEMS ENGINEER The change in procalcitonin (PCT) concentration over time provides support in decision making on antibiotic discontinuation for suspected or confirmed septic patients. Follow-up samples should be tested once every 1-2 days based upon physician discretion taking into account the patient s evolution and progress. Consider discontinuation of antibiotic therapy if the PCT current is <= 0.5 ng/mL or if the delta PCT is > 80%. Duration of antibiotics should not be determined solely on PCT; established guidelines for the indication should be followed. PCT peak: Highest observed PCT concentration PCT current: Most recent PCT concentration Calculate delta PCT using the following equation: Delta PCT = PCT Peak PCT current X 100% PCT Peak The Change in Procalcitonin Calculator is available at [email or web address] If clinical picture has not improved and PCT remains high, reevaluate and consider treatment failure or other causes. Rodríguez Benz MD LAB - CHEMISTRY ROSEANNA KEE [facility] Organization Address City/State/ZIP Co de Phone Number [facility] [address] [address] * XR Chest 1Vw Portable (04/02/2024 5:40 AM SYSTEMS ENGINEER) Only the most recent of2 resultswithin the time period is included. Anatomical Region Laterality Modality Chest Radiographic Pattie ging 04/02/2024 7:58 AM SYSTEMS ENGINEER Impressions 04/02/2024 8:08 AM SYSTEMS ENGINEER IMPRESSION: Decreased bilateral airspace disease. Edited by Phoebe Rico on 04/02/2024 8:03 AM > Interpreting Provider: Rod Palma MD on 04/02/2024 8:08 AM Narrative 04/02/2024 8:08 AM SYSTEMS ENGINEER XR CHEST 1VW PORTABLE INDICATION: J96.01: Acute respiratory failure with hypoxia (HCC). COMPARISON: 03/31/2024. FINDINGS: There has been a decrease in the hazy diffuse airspace opacities. No pleural effusion or pneumothorax is present. The heart size is normal. Procedure Note Rod Palma MD - 04/02/2024 XR CHEST 1VW PORTABLE INDICATION: J96.01: Acute respiratory failure with hypoxia (HCC). COMPARISON: 03/31/2024. FINDINGS: There has been a decrease in the hazy diffuse airspace opacities. No pleural effusion or pneumothorax is present. The heart size is normal. IMPRESSION: Decreased bilateral airspace disease. Edited by Phoebe Rico on 04/02/2024 8:03 AM > Interpreting Provider: Rod Palma MD on 04/02/2024 8:08 AM Rodríguez Benz MD DIAGNOSTIC IMAGING O RDERABLES * SARS-COV-2 (COVID-19) FLU A/B RSV PCR RAPID (04/01/2024 1:24 PM SYSTEMS ENGINEER) COVID-19 PCR Not detected Not detected 04/01/19 2:24 PM SYSTEMS ENGINEER [facility] Influenza A PCR Not detected Not detected 04/01/2024 2:24 PM SYSTEMS ENGINEER [facility] Influenza B PCR Not detected Not detected 04/01/2024 2:24 PM SYSTEMS ENGINEER [facility] RSV PCR Not detected Not detected 04/01/2024 2:24 PM SYSTEMS ENGINEER [facility] Microbiology SPECIMEN FROM NASOPHARYNGEAL STRUCTURE / Unknown Collection / Unknown 04/01/2024 1:24 PM SYSTEMS ENGINEER 04/01/2024 1:39 PM SYSTEMS ENGINEER Narrative [facility] - 04/01/2024 2:24 PM SYSTEMS ENGINEER This nucleic acid amplification assay has been authorized by the Food and Drug administration (FDA) under an Emergency Use Authorization (EUA). This test is only authorized for the duration of time the declaration that circumstances exist justifying the authorization of emergency use of in vitro diagnostic tests for detection of SARS-CoV-2 virus and/or diagnosis of COVID-19 infection under section 564(b)(1) of the Act, 21 U.S.C 360bbb-3 (b)(1), unless the authorization is terminated or revoked sooner. Fact Sheets for this EUA assay are available upon request. Elodia Varela MD LAB - MICROBIOLOGY O RDERABLES [facility] [address] [address] * ECHO COMPLETE W CONTRAST (04/01/2024 11:34 AM SYSTEMS ENGINEER) AV pk grad 8.2 mmHg SSM CV FU JI PACS AV pk alex 143 cm/s [facility] CV FUJ I PACS AV VTI 25.35 cm SSM CV FUJ I PACS AV mn grad 4.5 mmHg SSM CV FU JI PACS AV area pk alex 2.461 cm SSM CV FUJI PACS AV area cont VTI 2.548 cm SSM CV FUJI PACS LA size 2.9 cm SSM CV FUJ I PACS LA vol BP 42.9 ml SSM CV FUJ I PACS Sinus of Valsalva 2.61 cm SS M CV FUJI PACS IVC Diam Expiration 2.06 cm SSM CV FUJI PACS IVSd 2D 0.82 cm SSM CV FUJ I PACS LVOT diam 2 cm SSM CV FUJ I PACS LVOT pk grad 5 mmHg SSM CV FUJI PACS LVOT pk alex 112 cm/s SSM CV F UJI PACS LVOT VTI 20.56 cm SSM CV FUJ I PACS LVPWd 0.72 cm SSM CV FUJ I PACS LV EDV A2C 75.2 ml SSM CV FU JI PACS LV EDV A4C 87.6 ml SSM CV FU JI PACS LV ESV A2C 31.3 ml SSM CV FU JI PACS LV ESV A4C 37.5 ml SSM CV FU JI PACS LVIDd 4.05 cm SSM CV FUJ I PACS LV A2C EF 58.378 % SSM CV FUJ I PACS LV A4C EF 57.192 % [facility] CV FUJ I PACS LV biplane EF 58.831 % [facility]SM CV FUJI PACS LVIDs 2.85 cm SSM CV FUJ I PACS MV lat a' alex 8.526 cm/s SSM CV FUJI PACS MV E' lateral alex 7.448 cm/s SS M CV FUJI PACS MV lat S' alex 6.762 cm/s SSM CV FUJI PACS MV A pk alex 77 cm/s SSM CV F UJI PACS MV E pk alex 98 cm/s SSM CV F UJI PACS PV pk alex 100 cm/s SSM CV FUJ I PACS TAPSE 2.16 cm SSM CV FUJ I PACS TR pk alex 262 cm/s SSM CV FUJ I PACS AV area index 1.394 cm /m SSM CV FUJI PACS LA vol index 0.023 l/m SSM CV FUJI PACS Dimensionless Index 0.811 unitless SSM CV FUJI PACS Myocardial strain charge 2 unitless SSM CV FUJI PACS Anatomical Region Laterality Modality Ultrasound 04/01/2024 11:0 0 AM SYSTEMS ENGINEER Narrative 04/01/2024 5:26 PM SYSTEMS ENGINEER Summary * Normal left ventricular size, global/ segmental systolic function. LVEF 60 %. Grade 2 diastolic dysfunction with mildly elevated left ventricular filling pressures. * normal RV size and systolic function. * left atrium is normal in size. * right atrium is normal in size. * no shunt seen across the atrial septum on color Doppler. * aortic valve is free of significant stenosis or regurgitation. * mitral valve with mild thickening and trivial regurgitation. No significant stenosis noted. * Tricuspid valve with trivial regurgitation. No significant stenosis noted. Estimated PA SP 35-40 mmHg. * Pulmonic valve is free of significant stenosis or regurgitation. * ascending aorta is normal in caliber. * no significant pericardial effusion noted. Patient Info Name: Arlet Blake Age: 63 years : 1960 Gender: Female Ht: 62 in Wt: 164 lb BSA: 1.83 m2 BP: 108 / 62 mmHg Exam Date: 04/01/2024 11:00 AM Patient Status: I/P Study Site: [facility] Primary Location: [facility] EStudy Info Technical Quality: Technically Difficult Exam Type: ECHO COMPLETE W CONTRAST Indications Please refer to EHR for Exam Diagnosis Codes - Procedure(s) * A complete 2D, color Doppler, spectral Doppler and M-Mode transthoracic echocardiogram was performed with an Ultrasound Enhancing Agent (UEA). Contrast/Agitated Saline Contrast / Saline: Definity Amount: 2.00 ml Reaction to Contrast: no Reason for Technically Difficult Study: patient supine, positional limitations Staff Referring Physician: Tejas Graves Ordering Provider: Tejas Graves Attending Physician: Tejas Graves Zigzagger: Gaby Morales Left Ventricle Normal left ventricular size, global/ segmental systolic function. LVEF 60 %. Grade 2 diastolic dysfunction with mildly elevated left ventricular filling pressures. Right Ventricle normal RV size and systolic function. Ventricular Septum normal interventricular septal motion. Left Atrium left atrium is normal in size. Right Atrium right atrium is normal in size. Atrial Septum no shunt seen across the atrial septum on color Doppler. Atrial Appendage not visualized. Aortic Valve aortic valve is free of significant stenosis or regurgitation. Pulmonic Valve Pulmonic valve is free of significant stenosis or regurgitation. Mitral Valve mitral valve with mild thickening and trivial regurgitation. No significant stenosis noted. Tricuspid Valve Tricuspid valve with trivial regurgitation. No significant stenosis noted. Estimated PA SP 35-40 mmHg. Inferior Vena Cava IVC is dilated but with preserved respiratory variation. Pericardium/Pleural no significant pericardial effusion noted. Aorta ascending aorta is normal in caliber. Measurements Left Ventricular Outflow Tract Name Value Normal LVOT 2D LVOT Diameter 2.0 cm LVOT Area 3.1 cm2 LVOT Doppler LVOT Peak Velocity 1.1 m/s LVOT Peak Gradient 5 mmHg LVOT Mean Gradient 2 mmHg LVOT VTI 20.6 cm LVOT VTI/AV VTI Ratio 0.8 LVOT Stroke Volume 65 ml LVOT Stroke Volume Index 35 ml/m2 35-58 Pulmonic Valve Name Value Normal PV Doppler PV Peak Velocity 1.0 m/s PV Peak Gradient 4 mmHg PV Accel Time 81.00 ms Mitral Valve Name Value Normal MV Diastolic Function MV E Peak Velocity 1.0 m/sec MV A Peak Velocity 0.8 m/sec MV E/A 1.3 MV Annular TDI MV Septal s' Velocity 9 cm/s MV Septal e' Velocity 8 cm/s >=8 MV Septal a' Velocity 8 cm/s MV E/e' (Septal) 12 <=8 MV A/a' (Septal) 10 MV Lateral s' Velocity 7 cm/s MV Lateral e' Velocity 7 cm/s >=10 MV Lateral a' Velocity 9 cm/s MV E/e' (Lateral) 13 <=8 MV A/a' (Lateral) 9 MV e' Average 8 cm/s MV E/e' (Average) 12 Tricuspid Valve Name Value Normal TV Regurgitation Doppler TR Peak Velocity 2.6 m/s TR Peak Gradient 28 mmHg Estimated PAP/RSVP RA Pressure 8 mmHg <=5 PA Systolic Pressure 35 mmHg <35 RV Systolic Pressure 35 mmHg <36 TV Annular TDI TV Lateral An s' Velocity 11 cm/s 10-19 Aorta Name Value Normal Ascending Aorta Sinus of Valsalva Diameter 2.6 cm 2.4-3.6 Sinus of Valsalva Index 1.4 cm/m2 1.4-2.2 Venous Name Value Normal IVC/SVC IVC Diameter 2.1 cm <=2.1 Aortic Valve Name Value Normal AV Doppler AV Peak Velocity 1.43 m/s AV Peak Gradient 8 mmHg AV Mean Gradient 5 mmHg AV VTI 25 cm AV Area (Cont Eq VTI) 2.55 cm2 >=2.00 AV Area (Cont Eq Alex) 2.46 cm2 AV DI (VTI) 0.81 AV DI (Alex) 0.78 AV Accel Time 48 ms AV Regurgitation 2D LVOT Area 3.14 cm2 Ventricles Name Value Normal LV Dimensions 2D/MM IVS Diastolic Thickness (2D) 0.8 cm 0.6-0.9 LVID Diastole (2D) 4.1 cm 3.8-5.2 LVPW Diastolic Thickness (2D) 0.7 cm 0.6-0.9 LVID Systole (2D) 2.9 cm 2.2-3.5 LV Mass (2D Cubed) 91 g 67-162 LV Mass Index (2D Cubed) 50 g/m2 43-95 Relative Wall Thickness (2D) 0.36 <=0.42 LV Fractional Shortening/Ejection Fraction 2D/MM LV Fractional Shortening (2D) 30 % 27-45 LV EF (2D Teicholz) 57 % 54-74 LV Diastolic Volume (4C MOD) 88 ml LV EF (4C MOD) 57 % LV Diastolic Volume (2C MOD) 75 ml LV EF (2C MOD) 58 % LV Diastolic Volume (BP MOD) 84 ml 46-106 LV Diastolic Volume Index (BP MOD) 46 ml/m2 29-61 LV Systolic Volume (BP MOD) 35 ml 14-42 LV Systolic Volume Index (BP MOD) 19 ml/m2 8-24 LV EF (BP MOD) 59 % 54-74 LV Diastolic Length (4C) 7.4 cm LV Systolic Length (4C) 5.8 cm LV End Diastolic Volume (BP A-L) 80 ml LV End Systolic Volume (BP A-L) 34 ml LV EF (BP A-L) 58 % LV Stroke Volume (4C MOD) 50 ml RV Dimensions 2D/MM TAPSE 2.2 cm >=1.7 Atria Name Value Normal LA Dimensions LA Dimension (2D) 2.9 cm 2.7-3.8 LA Dimen Index (2D) 1.6 cm/m2 LA Volume (BP MOD) 43 ml LA Volume Index (BP MOD) 23 ml/m2 16-34 Report Signatures Finalized by Emanuel Simons on 04/01/2024 05:26 PM Procedure Note Emanuel Simons MD - 04/01/2024 Summary * Normal left ventricular size, global/ segmental systolic function.LVEF 60 %. Grade 2 diastolic dysfunction with mildly elevated leftventricular filling pressures. * normal RV size and systolic function. * left atrium is normal in size. * right atrium is normal in size. * no shunt seen across the atrial septum on color Doppler. * aortic valve is free of significant stenosis or regurgitation. * mitral valve with mild thickening and trivial regurgitation. No significant stenosis noted. * Tricuspid valve with trivial regurgitation. No significant stenosis noted. Estimated PA SP 35-40 mmHg. * Pulmonic valve is free of significant stenosis or regurgitation. * ascending aorta is normal in caliber. * no significant pericardial effusion noted. Patient Info Name: Arlet Blake Age: 63 years : 1960 Gender: Female Ht: 62 in Wt: 164 lb BSA: 1.83 m2 BP: 108 / 62 mmHg Exam Date: 04/01/2024 11:00 AM Patient Status: I/P Study Site: [facility] Primary Location: [facility] EStudy Info Technical Quality: Technically Difficult Exam Type: ECHO COMPLETE W CONTRAST Indications Please refer to EHR for Exam Diagnosis Codes - Procedure(s) * A complete 2D, color Doppler, spectral Doppler and M-Modetransthoracic echocardiogram was performed with an Ultrasound Enhancing Agent (UEA). Contrast/Agitated Saline Contrast / Saline: Definity Amount: 2.00 ml Reaction to Contrast: no Reason for Technically Difficult Study: patient supine, positional limitations Staff Referring Physician: Tejas Graves Ordering Provider: Tejas Graves Attending Physician: Tejas Graves Zigzagger: Gaby Andrew Left Ventricle Normal left ventricular size, global/ segmental systolic function. LVEF60 %. Grade 2 diastolic dysfunction with mildly elevated left ventricular filling pressures. Right Ventricle normal RV size and systolic function. Ventricular Septum normal interventricular septal motion. Left Atrium left atrium is normal in size. Right Atrium right atrium is normal in size. Atrial Septum no shunt seen across the atrial septum on color Doppler. Atrial Appendage not visualized. Aortic Valve aortic valve is free of significant stenosis or regurgitation. Pulmonic Valve Pulmonic valve is free of significant stenosis or regurgitation. Mitral Valve mitral valve with mild thickening and trivial regurgitation. Nosignificant stenosis noted. Tricuspid Valve Tricuspid valve with trivial regurgitation. No significant stenosisnoted. Estimated PA SP 35-40 mmHg. Inferior Vena Cava IVC is dilated but with preserved respiratory variation. Pericardium/Pleural no significant pericardial effusion noted. Aorta ascending aorta is normal in caliber. Measurements Left Ventricular Outflow Tract Name Value Normal LVOT 2D LVOT Diameter 2.0 cm LVOT Area 3.1 cm2 LVOT Doppler LVOT Peak Velocity 1.1 m/s LVOT Peak Gradient 5 mmHg LVOT Mean Gradient 2 mmHg LVOT VTI 20.6 cm LVOT VTI/AV VTI Ratio 0.8 LVOT Stroke Volume 65 ml LVOT Stroke Volume Index 35 ml/m2 35-58 Pulmonic Valve Name Value Normal PV Doppler PV Peak Velocity 1.0 m/s PV Peak Gradient 4 mmHg PV Accel Time 81.00 ms Mitral Valve Name Value Normal MV Diastolic Function MV E Peak Velocity 1.0 m/sec MV A Peak Velocity 0.8 m/sec MV E/A 1.3 MV Annular TDI MV Septal s' Velocity 9 cm/s MV Septal e' Velocity 8 cm/s >=8 MV Septal a' Velocity 8 cm/s MV E/e' (Septal) 12 <=8 MV A/a' (Septal) 10 MV Lateral s' Velocity 7 cm/s MV Lateral e' Velocity 7 cm/s >=10 MV Lateral a' Velocity 9 cm/s MV E/e' (Lateral) 13 <=8 MV A/a' (Lateral) 9 MV e' Average 8 cm/s MV E/e' (Average) 12 Tricuspid Valve Name Value Normal TV Regurgitation Doppler TR Peak Velocity 2.6 m/s TR Peak Gradient 28 mmHg Estimated PAP/RSVP RA Pressure 8 mmHg <=5 PA Systolic Pressure 35 mmHg <35 RV Systolic Pressure 35 mmHg <36 TV Annular TDI TV Lateral An s' Velocity 11 cm/s 10-19 Aorta Name Value Normal Ascending Aorta Sinus of Valsalva Diameter 2.6 cm 2.4-3.6 Sinus of Valsalva Index 1.4 cm/m2 1.4-2.2 Venous Name Value Normal IVC/SVC IVC Diameter 2.1 cm <=2.1 Aortic Valve Name Value Normal AV Doppler AV Peak Velocity 1.43 m/s AV Peak Gradient 8 mmHg AV Mean Gradient 5 mmHg AV VTI 25 cm AV Area (Cont Eq VTI) 2.55 cm2 >=2.00 AV Area (Cont Eq Alex) 2.46 cm2 AV DI (VTI) 0.81 AV DI (Alex) 0.78 AV Accel Time 48 ms AV Regurgitation 2D LVOT Area 3.14 cm2 Ventricles Name Value Normal LV Dimensions 2D/MM IVS Diastolic Thickness (2D) 0.8 cm 0.6-0.9 LVID Diastole (2D) 4.1 cm 3.8-5.2 LVPW Diastolic Thickness (2D) 0.7 cm 0.6-0.9 LVID Systole (2D) 2.9 cm 2.2-3.5 LV Mass (2D Cubed) 91 g 67-162 LV Mass Index (2D Cubed) 50 g/m2 43-95 Relative Wall Thickness (2D) 0.36 <=0.42 LV Fractional Shortening/Ejection Fraction 2D/MM LV Fractional Shortening (2D) 30 % 27-45 LV EF (2D Teicholz) 57 % 54-74 LV Diastolic Volume (4C MOD) 88 ml LV EF (4C MOD) 57 % LV Diastolic Volume (2C MOD) 75 ml LV EF (2C MOD) 58 % LV Diastolic Volume (BP MOD) 84 ml 46-106 LV Diastolic Volume Index (BP MOD) 46 ml/m2 29-61 LV Systolic Volume (BP MOD) 35 ml 14-42 LV Systolic Volume Index (BP MOD) 19 ml/m2 8-24 LV EF (BP MOD) 59 % 54-74 LV Diastolic Length (4C) 7.4 cm LV Systolic Length (4C) 5.8 cm LV End Diastolic Volume (BP A-L) 80 ml LV End Systolic Volume (BP A-L) 34 ml LV EF (BP A-L) 58 % LV Stroke Volume (4C MOD) 50 ml RV Dimensions 2D/MM TAPSE 2.2 cm >=1.7 Atria Name Value Normal LA Dimensions LA Dimension (2D) 2.9 cm 2.7-3.8 LA Dimen Index (2D) 1.6 cm/m2 LA Volume (BP MOD) 43 ml LA Volume Index (BP MOD) 23 ml/m2 16-34 Report Signatures Finalized by Emanuel Simons on 04/01/2024 05:26 PM Tejas Graves MD ECHO CUPID * CCL LEFT HEART CATH (04/01/2024 9:32 AM SYSTEMS ENGINEER) Anatomical Region Laterality Modality X-Ray Angiograph y Narrative 04/01/2024 9:46 AM SYSTEMS ENGINEER Procedures Moderate sedation Left heart cardiac catheterization, selective coronary angiogram and left ventriculogram Indication-NSTEMI FITNESS DIRECTOR-Chris Conte MD After informed consent was obtained the patient was transferred to the cardiac catheterization laboratory where bilateral groin areas were draped and prepped in sterile fashion. 1% lidocaine was utilized to achieve local anesthesia in the right femoral area. Utilizing Doppler guided ultrasound we accessed the right femoral artery and placed a 6 [place]er sheath without any problems. A 5 [place]er FL4 diagnostic catheter was utilized to cannulate the left main coronary artery and several angiographic views were obtained in different orthogonal planes of the left main LAD and left circumflex arteries. The catheter was exchanged over the wire for a 5 [place]er FR4 and that catheter was utilized to cannulate the right coronary artery several angiographic views were obtained in different orthogonal planes of the right coronary artery. The same catheter was utilized to cross the aortic valve in a 30 degree BENITEZ projection left ventriculogram was obtained these are the following hemodynamic and angiographic findings: Aortic pressure 118/69 Left ventricular systolic pressure 120 Left ventricular end-diastolic pressure 14 1. The left main coronary artery is a vessel of large caliber and short length that is angiographically within normal limits it gives rise to an LAD and left circumflex artery 2. The left anterior descending artery is a vessel of large caliber that has minimal luminal irregularities in it feeds the apex of the left ventricle 3. The left circumflex artery is composed of 1 large obtuse marginal 1 branch with no major atherosclerotic aortic plaques or spasm present 4. The right coronary artery is a large dominant vessel that has a 30% plaque proximally and a 30% plaque in the midportion gives rise to a PDA and PLV branches that have minimal luminal irregularities 5. The left ventricular ejection fraction is mildly depressed at approximately 45% with mild global hypokinesis Final impression mild CAD and mildly depressed LVEF The arteriotomy site was closed utilizing a 6 [place]er Angio-Seal device with good hemostasis and no complications Estimated blood loss 30 cc Complications none Sedation Versed 2 mg IV and fentanyl 50 mcg IV Procedure Details Estimated Blood Loss: 30 mL Chris Conte MD CV CARDIAC CATH CUPI D PROCS * HEMOGLOBIN A1C (04/01/2024 7:06 AM SYSTEMS ENGINEER) Hemoglobin A1c 5.4 <5.7 % 04/01/2024 9:[address] [facility] Estimated Average Glucose 108 mg/dL 04/01/2024 9:[address] [facility] Blood BLOOD SPECIMEN / Unknown Lab Venipuncture / Unknown 04/01/2024 7:06 AM SYSTEMS ENGINEER 04/01/2024 7:17 AM SYSTEMS ENGINEER Narrative [facility] - 04/01/2024 9:20 AM SYSTEMS ENGINEER HbA1c Interpretation: Normal: < 5.7% Pre-diabetes: 5.7-6.4% Diabetes: Equal to or greater than 6.5% Test results diagnostic of diabetes should be repeated for confirmation. Treatment target values recommended by ADA and other clinical organizations should be used to evaluate metabolic control in patients. This test should not replace glucose testing for patients with Type 1 diabetes, pediatric patients, or women. Falsely low HbA1c results may be observed in patients with clinical conditions that shorten erythrocyte life span or decrease mean erythrocyte age such as the presence of unstable hemoglobin variants, elevated hemoglobin F level or other causes of hemolytic anemia. HbA1c may not accurately reflect glycemic control when clinical conditions that affect erythrocyte survival are present. Severe Iron deficiency anemia may yield falsely high results. Hemoglobin A1c assay should not be used to diagnose or monitor diabetes in patients with malignancy, recent blood transfusion, chronic kidney or liver disease. This method may yield falsely low results when hemoglobin (HbF) exceeds 5% in the specimen. The Hernandez Alinity assay for the measurement of HbA1c is a National Glycohemoglobin Standardization Program (NGSP) certified method. Tejas Graves MD LAB - CHEMISTRY ROSEANNA Liang Organization Address City/State/ZIP Co de Phone Number [facility] [address] [place] [address] * (ABNORMAL) PTT (04/01/2024 7:06 AM SYSTEMS ENGINEER) Only the most recent of3 resultswithin the time period is included. PTT 71.8(H) 23.0 - 38.4 sec 04/01/2024 7:35 AM SYSTEMS ENGINEER [facility] Blood BLOOD SPECIMEN / Unknown Lab Venipuncture / Unknown 04/01/2024 7:06 AM SYSTEMS ENGINEER 04/01/2024 7:17 AM SYSTEMS ENGINEER Narrative [facility] - 04/01/2024 7:35 AM SYSTEMS ENGINEER Heparin Therapeutic Range for PTT: 69.0 - 110.0 seconds. Emanuel Smions MD LAB - COAGULA TION ORDERABLES Performing Organization Address City/[facility]/ZIP Co de Phone Number [facility] [address] [place] [address] * (ABNORMAL) LIPID PROFILE (04/01/2024 6:41 AM SYSTEMS ENGINEER) Cholesterol 195 <200 mg/dL 04/01/2024 10:41 AM [facility] Triglycerides 272(H) <150 mg/dL 04/01/2024 10:41 AM [facility] HDL Cholesterol 35(L) >40 mg/dL 10:41 AM [facility] LDL Calculated 106 <130 mg/dL 04/01/2024 10:41 AM [facility] VLDL Calculated 54(H) <=30 mg/dL 10:41 AM [facility] Chol HDL Ratio 5.6(H) <4.5 04/01/2024 10:41 AM [facility] LDL/HDL Ratio 3.0 <5.0 04/01/2024 10:41 AM [facility] Blood BLOOD SPECIMEN / Unknown Lab Venipuncture / Unknown 04/01/2024 6:41 AM SYSTEMS ENGINEER 04/01/2024 6:46 AM SYSTEMS ENGINEER Tejas Graves MD LAB - CHEMISTRY ROSEANNA KEE [facility] [address] [place] [address] * (ABNORMAL) TROPONIN-I HIGH SENSITIVE (03/31/2024 3:11 PM SYSTEMS ENGINEER) Only the most recent of2 resultswithin the time period is included. Troponin I High Sensitive 5,189(HH) <=14 ng/L 03/31/2024 4:00 PM SYSTEMS ENGINEER [facility] Blood BLOOD SPECIMEN / Unknown Lab Venipuncture / Unknown 03/31/2024 3:11 PM SYSTEMS ENGINEER 03/31/2024 3:19 PM SYSTEMS ENGINEER Tejas Graves MD LAB - CHEMISTRY SHIVANIE CHILANGO [facility] Organization Address City/State/ZIP Co de Phone Number [facility] [address] [place] [address] * CT Angio Chest Pulm Embolism (03/31/2024 2:32 PM SYSTEMS ENGINEER) Anatomical Region Laterality Modality Chest Computed Tomogra phy 03/31/2024 2:41 PM SYSTEMS ENGINEER Impressions 03/31/2024 2:43 PM SYSTEMS ENGINEER IMPRESSION: 1. No pulmonary embolism. 2. Findings most consistent with congestive heart failure with interstitial and alveolar pulmonary edema and small pleural effusion. Differential includes infection. > Interpreting Provider: Daniele Pino MD on 03/31/2024 2:43 PM Narrative 03/31/2024 2:43 PM SYSTEMS ENGINEER PROCEDURE: CT ANGIO CHEST PULM EMBOLISM DATE/TIME OF EXAM: 03/31/2024 2:33 PM CLINICAL INFORMATION: None relevant/not provided if blank. Indication: A41.9: Sepsis, unspecified organism (HCC) R65.20: Severe sepsis without septic shock (HCC) J96.01: Acute respiratory failure with hypoxia (HCC) Additional History: COMPARISON: None. Technique: The pulmonary embolus protocol was utilized. Axial CT images from the lung apices to the lung bases were obtained following approximately 80 cc of Isovue-370 intravenous contrast administration. Multiplanar maximum intensity projection reconstructions were created on an independent workstation. One or more of the following CT dose reduction techniques were utilized: *Automated exposure control (AEC) *Adjustment of mA and/or kV according to patient size -Use of iterative reconstruction technique -CT scan done according to ALARA or ALARA/IMAGE GENTLY Findings: There is no supraclavicular, axillary, mediastinal or hilar lymphadenopathy. Left ventricular dilatation. No thoracic aneurysm. Calcific plaque in the coronary arteries. No pulmonary embolism identified. Small bilateral pleural effusions. Lung windows show diffuse interlobular septal thickening and groundglass attenuation in both lungs. Bronchial wall thickening. Central airways are clear. No acute osseous abnormality. Procedure Note Daniele Pino MD - 03/31/2024 PROCEDURE: CT ANGIO CHEST PULM EMBOLISM DATE/TIME OF EXAM: 03/31/2024 2:33 PM CLINICAL INFORMATION: None relevant/not provided if blank. Indication: A41.9: Sepsis, unspecified organism (HCC) R65.20: Severe sepsis without septic shock (HCC) J96.01: Acute respiratory failure with hypoxia (HCC) Additional History: COMPARISON: None. Technique: The pulmonary embolus protocol was utilized. Axial CT images from the lung apices to the lung bases were obtained following approximately 80 cc of Isovue-370 intravenous contrast administration. Multiplanar maximum intensity projection reconstructions were created neftaly independent workstation. One or more of the following CT dose reduction techniques were utilized: *Automated exposure control (AEC) *Adjustment of mA and/or kV according to patient size -Use of iterative reconstruction technique -CT scan done according to ALARA or ALARA/IMAGE GENTLY Findings: There is no supraclavicular, axillary, mediastinal or hilar lymphadenopathy. Left ventricular dilatation. No thoracic aneurysm. Calcific plaque in the coronary arteries. No pulmonary embolismidentified. Small bilateral pleural effusions. Lung windows show diffuseinterlobular septal thickening and groundglass attenuation in both lungs. Bronchialwall thickening. Central airways are clear. No acute osseous abnormality. IMPRESSION: 1. No pulmonary embolism. 2. Findings most consistent with congestive heart failure withinterstitial and alveolar pulmonary edema and small pleural effusion. Differential includes infection. > Interpreting Provider: Daniele Pino MD on 03/31/2024 2:43 PM Tejas Graves MD CT ORDERABLES * (ABNORMAL) LACTIC ACID BLOOD (03/31/2024 1:36 PM SYSTEMS ENGINEER) Only the most recent of2 resultswithin the time period is included. Pathologist [facility] Lactic Acid 2.9(H) <=2 mmol/L 03/31/2024 2:07 PM SYSTEMS ENGINEER [facility] Blood BLOOD SPECIMEN / Unknown Lab Venipuncture / Unknown 03/31/2024 1:36 PM SYSTEMS ENGINEER 03/31/2024 1:52 PM SYSTEMS ENGINEER Tejas Graves MD LAB - CHEMISTRY ROSEANNA KEE Performing Organization Address [facility]/ZIP Co de Phone Number [facility] [address] [place] [address] * CULTURE BLOOD (03/31/2024 10:28 AM SYSTEMS ENGINEER) Only the most recent of2 resultswithin the time period is included. Pathologist [facility] Culture No growth day 5 ADE 04/05/2024 2:01 PM SYSTEMS ENGINEER [facility] Blood PERIPHERAL BLOOD / Unknown Lab Venipuncture / Unknown 03/31/2024 10:28 AM SYSTEMS ENGINEER 03/31/2024 10:32 AM SYSTEMS ENGINEER Tejas Graves MD LAB - MICROBIOLOGY O RDERABLES Performing Organization Address [facility] Co de Phone Number [facility] [address] [place] [address] [phone] * ERYTHROCYTE SEDIMENTATION RATE (03/31/2024 10:16 AM SYSTEMS ENGINEER) Pathologist [facility] Erythrocyte Sedimentation Rate Automated 14 0 - 30 MM/HR 03/31/2024 10:36 AM SYSTEMS ENGINEER [facility] Blood BLOOD SPECIMEN / Unknown Lab Venipuncture / Unknown 03/31/2024 10:16 AM SYSTEMS ENGINEER 03/31/2024 10:32 AM SYSTEMS ENGINEER Tejas Graves MD LAB - HEMATOLOGY ORD ERABLES Performing Organization Address [facility] Co de Phone Number [facility] [address], [place] [id number] * (ABNORMAL) B-TYPE NATRIURETIC PEPTIDE (03/31/2024 10:16 AM SYSTEMS ENGINEER) Pathologist [facility] BNP 516(H) <=100 pg/mL 03/31/2024 10:[address] [facility] Blood BLOOD SPECIMEN / Unknown Lab Venipuncture / Unknown 03/31/2024 10:16 AM SYSTEMS ENGINEER 03/31/2024 10:32 AM SYSTEMS ENGINEER [facility] - 03/31/2024 10:55 AM SYSTEMS ENGINEER A cutoff of 100 pg/mL has been demonstrated to provide the maximal combination of sensitivity, specificity, and negative predictive value for contributing to the diagnosis of congestive heart failure (CHF) only. A B-Type Natriuretic Peptide (BNP) value greater than or equal to 100 pg/mL is consistent with a diagnosis of CHF in the appropriate clinical setting. False positive results are more common in females greater than 75 years of age. Blood concentrations of natriuretic peptides may also be elevated in patients with myocardial infarction and in patients who are candidates for or are undergoing renal dialysis. Tejas Graves MD LAB - CHEMISTRY ROSEANNA KEE [facility] Organization Address City/State/ZIP Co de Phone Number [facility] [address] [facility] [place] [address] * BLOOD GASES ARTERIAL (03/31/2024 9:29 AM SYSTEMS ENGINEER) pH Arterial 7.44 7.35 - 7.45 pH 03/31/2024 9:33 AM SYSTEMS ENGINEER [facility]P [facility]ER[facility] pO2 Arterial 84 80 - 100 mmHg 03/31/2024 9:33 AM SYSTEMS ENGINEER [facility] RESP THERAPY pCO2 Arterial 36 35 - 45 mmHg 03/31/2024 9:33 AM SYSTEMS ENGINEER [facility]P [facility]ERAP[facility] HCO3 Arterial 24.5 22.0 - 26.0 mmol/L 03/31/2024 9:33 AM SYSTEMS ENGINEER [facility] RESP THERAP[facility] BE Arterial 0.6 -2.0 - 2.0 mmol/L 03/31/2024 9:33 AM SYSTEMS ENGINEER [facility]P [facility]ERAP[facility] O2 Saturation Arterial 99 90 - 100 % 03/31/2024 9:33 AM SYSTEMS ENGINEER [facility] Temperature (C) 37.0 C 9:33 AM SYSTEMS ENGINEER [facility] RES[facility] THERAPY Galen's Test Positive 03/31/2024 9:33 AM SYSTEMS ENGINEER [facility]ERAP[facility] Mode Bipap 03/31/2024 9:33 AM SYSTEMS ENGINEER [facility] FI O2 40.0 % 03/31/2024 9:33 AM SYSTEMS ENGINEER [facility] BIPAP Insp Pressure (cmH2O) 10 03/31/2024 9:33 AM SYSTEMS ENGINEER [facility] BIPAP Exp Pressure (cmH2O) 5 03/31/2024 9:33 AM SYSTEMS ENGINEER [facility] P/F Ratio 210 03/31/2024 9:33 AM SYSTEMS ENGINEER [facility] Blood ARTERIAL BLOOD SPECIMEN / Unknown 03/31/2024 9:29 AM SYSTEMS ENGINEER 03/31/2024 9:29 AM SYSTEMS ENGINEER Tejas Graves MD LAB - BLOOD GASES OR DERABLES Performing Organization Address City/[facility]/ZIP Co de Phone Number [facility] [address] [address], [facility] * TSH REFLEX FREE T4 (03/31/2024 9:25 AM SYSTEMS ENGINEER) TSH 1.568 0.350 - 4.940 uIU/mL 03/31/2024 10:20 AM SYSTEMS ENGINEER [facility] Blood BLOOD SPECIMEN / Unknown Lab Venipuncture / Unknown 03/31/2024 9:25 AM SYSTEMS ENGINEER 03/31/2024 9:30 AM SYSTEMS ENGINEER Tejas Graves MD LAB - CHEMISTRY ROSEANNA KEE Performing Organization Address [facility] Co de Phone Number [facility] [address] [id number] * (ABNORMAL) C-REACTIVE PROTEIN (03/31/2024 9:25 AM SYSTEMS ENGINEER) C-Reactive Protein 1.35(H) <=0.50 mg/dL 03/31/2024 9:58 AM SYSTEMS ENGINEER [facility] Blood BLOOD SPECIMEN / Unknown Lab Venipuncture / Unknown 03/31/2024 9:25 AM SYSTEMS ENGINEER 03/31/2024 9:30 AM SYSTEMS ENGINEER Tejas Graves MD LAB - CHEMISTRY ORDPaul KEE Performing Organization Address City/[facility]/ZIP Co de Phone Number [facility] [address] [id number] * (ABNORMAL) COMPREHENSIVE METABOLIC PANEL (03/31/2024 9:25 AM [facility]) Glucose 170(H) 70 - 99 mg/dL 03/31/2024 9:[address] [facility] Sodium 142 136 - 145 mmol/L 03/31/2024 9:[address] [facility] Potassium 4.0 3.5 - 5.1 mmol/L 03/31/2024 9:[address] [facility] Chloride 109(H) 98 - 107 mmol/L 03/31/2024 9:[address] [facility] CO2 21(L) 22 - 29 mmol/L 03/31/2024 9:[address] [facility] Calcium 9.2 8.4 - 10.4 mg/dL 03/31/2024 9:[address] [facility] Anion Gap 12 6 - 16 mmol/L 03/31/2024 9:[address] [facility] BUN 20 7 - 26 mg/dL 03/31/2024 9:[address] [facility] Creatinine 0.80 0.57 - 1.11 mg/dL 03/31/2024 9:[address] [facility] Alkaline Phosphatase 120 40 - 150 U/L 03/31/2024 9:[address] [facility] ALT 21 0 - 55 U/L 03/31/2024 9:[address] [facility] AST 33 5 - 34 U/L 03/31/2024 9:[address] [facility] Protein Total 7.0 6.4 - 8.3 gm/dL 03/31/2024 9:[address] [facility] Albumin 3.6 3.4 - 5.0 gm/dL 03/31/2024 9:[address] [facility] Bilirubin Total 0.4 0.2 - 1.2 mg/dL 03/31/2024 9:[address] [facility] eGFR by CKD-EPI 83(L) >=90 mL/min/1.7 3 m2 03/31/2024 9:[address] [facility] Blood BLOOD SPECIMEN / Unknown Lab Venipuncture / Unknown 03/31/2024 9:25 AM [facility] 03/31/2024 9:30 AM SYSTEMS ENGINEER Tejas Graves MD LAB - CHEMISTRY ROSEANNA KEE [facility] [address] [id number] from Last 3 Months Advance Directives * Full Code (Latest Code Status on File) Date Activated Date Inactivated Comments 04/01/2024 9:41 AM 04/03/2024 12:47 PM * Full Code Date Activated Date Inactivated Comments 03/31/2024 9:24 AM 04/01/2024 9:41 AM Care Teams Air Support Operations Operator Relationship Specialty Start Date End Date Sara Irene, COAL FEEDER OPERATOR-CHARGE MASTER COORDINATOR [address] [place] [address] PCP - General Nurse Practitioner Family 08/29/22
--- OUTSIDE RECORDS SUMMARY | 2024-04-12 12:09 | XMS_ITS | Patient Health Summary ---
Author Organization [facility] Address [address] [place] [address] Care Team Providers Care Storyboard Artist Name Role Phone Sara Irene APRN-LINE APPLIANCE ASSEMBLER Primary Care Provid er Note from [facility],non-owned Affiliates and Associated Physician Practices is amultiple site organization consisting of ambulatory clinics and hospital sitesin [place], [place]. This disclosure is being madepursuant to the Care Everywhere program and may not contain all information available regarding this patient. Last updated 17.[facility] Allergies * Codeine(Nausea and/or Vomiting) -Low Criticality * Methylprednisolone(Palpitations) * Morphine(Nausea and/or Vomiting) -Low Criticality * [...] (one) tablet by mouth once daily * Myrbetriq 25 MG tablet(Started 05/27/2022) Take 1 (one) tablet by mouth once daily * fluticasone propionate (Flonase) 50 MCG/ACT nasal spray(Started 07/06/2022) [place] 1 (one) spray into each nostril once daily * omeprazole (PriLOSEC) 20 MG capsule Take 1 (one) capsule by mouth daily before breakfast * acetaminophen (Tylenol) 500 MG tablet(Started 09/21/2022) Take 1 (one) tablet by mouth every 6 hours as needed for Fever or Pain Maximum allowable Acetaminophen amount = 4 Grams (4000 mg) / 24 hours. * albuterol (5 MG/ML) 0.5% 2.5 mg [...] 1 (one) puff by mouth once daily * albuterol HFA (Proventil; Ventolin; Proair) 108 (90 Base) MCG/ACT inhaler Inhale 2 (two) puffs by mouth every 6 hours as needed * aspirin EC (Ecotrin) 81 MG tablet(Started 04/03/2024) Take 1 (one) tablet by mouth once daily * furosemide (Lasix) 40 MG tablet(Started 04/03/2024) Take 1 (one) tablet by mouth once daily for 30 days * metoprolol succinate XL 24hr (Toprol XL) 25 MG tablet(Started 04/03/2024) Take 1 (one) tablet by mouth at bedtime for 30 days * nitroGLYCERIN (Nitrostat) 0.4 MG tablet(Started 04/03/2024) Dissolve 1 (one) tablet under the tongue every 5 minutes as needed for Angina * potassium chloride ER (K-TAB) 20 MEQ tablet(Started 04/04/2024) Take 1 (one) tablet by mouth daily with breakfast for 30 days * spironolactone (Aldactone) 25 MG tablet(Started 04/03/2024) Take 1 (one) tablet by mouth once daily for 30 days * Oxygen(Started 04/03/2024) Oxygen while sleeping at 2 L/min via nasal cannula - Estimate length of need (number of months): Lifetime Ended Medications* loratadine (Claritin) 10 MG tablet(Started 08/24/2022) (Discontinued) Take 1 (one) tablet by mouth once daily * Symbicort 160-4.5 MCG/ACT inhaler(Started 08/17/2022)(Discontinued) Inhale 2 (two) puffs by mouth 2 times daily * Combivent Respimat 20-100 MCG/ACT inhaler(Started 11/10/2021)(Discontinued) Inhale 1 (one) puff by mouth as directed * diclofenac sodium EC (Voltaren) 50 MG tablet(Started 04/06/2022)(Discontinued) Take 1 (one) tablet by mouth 3 times daily * Potassium Chloride Radha ER (KLOR-CON M20 PO)(Discontinued) Take 2 tablets by mouth once daily * hydroCHLOROthiazide (Hydrodiuril) 25 MG tablet(Discontinued) Take 1 (one) tablet by mouth once daily * ibuprofen (Motrin) 800 MG tablet(Started 09/21/2022)(Discontinued) Take 1 (one) tablet by mouth every 6 hours as needed for Pain * revefenacin (Yupelri) 175 MCG/3ML nebulizer solution(Discontinued) Inhale 175 (one hundred seventy five) mcg by mouth once daily Active Problems Problem [...] and heating? Not hard at all 04/01/2024 [facility] - [facility] [...] [facility] in the [facility] were you homeless or living in a senior care (including now)? No 03/31/2024 Sex and Gender Information Value Date Recorded Sex Assigned at Not on file Gender Identity Not on file Sexual Orientation Not on file Last Filed Vital Signs Vital Sign Reading Time Taken Comments Blood Pressure 142/99 04/03/2024 7:59 AM POWDER BLENDER Pulse 89 04/03/2024 9:18 AM POWDER BLENDER Temperature 36.6 C (97.9 F) 04/03/2024 7:59 AM POWDER BLENDER Respiratory Rate 18 04/03/2024 9:18 AM POWDER BLENDER Oxygen Saturation 99% 04/03/2024 9:18 AM POWDER BLENDER Inhaled Oxygen Concentration 40% 03/31/2024 4 :59 PM POWDER BLENDER Weight 73.5 kg (162 lb) 04/02/2024 4:11 AM POWDER BLENDER Height 157.5 cm (5' 2 ) 03/31/2024 10:03 AM POWDER BLENDER Body Mass Index 29.63 03/31/2024 10:03 AM POWDER BLENDER Procedures * CARDIAC RHYTHM STRIP ORDER(Performed 04/05/2024) * GLUCOSE - POINT OF CARE(Performed 04/03/2024) * PHOSPHORUS BLOOD(Performed 04/03/2024) * MAGNESIUM BLOOD(Performed 04/03/2024) * BASIC METABOLIC PANEL (CALCIUM TOTAL)(Performed 04/03/2024) * PT-INR(Performed 04/03/2024) * CBC W AUTO DIFFERENTIAL(Performed 04/03/2024) * GLUCOSE - POINT OF CARE(Performed 04/02/2024) * GLUCOSE - POINT OF CARE(Performed 04/02/2024) * GLUCOSE - POINT OF CARE(Performed 04/02/2024) * REJECTED SPUTUM GRAM STAIN(Performed 04/02/2024) * GLUCOSE - POINT OF CARE(Performed 04/02/2024) * PROCALCITONIN LEVEL(Performed 04/02/2024) * BASIC METABOLIC PANEL (CALCIUM TOTAL)(Performed 04/02/2024) * PHOSPHORUS BLOOD(Performed 04/02/2024) * MAGNESIUM BLOOD(Performed 04/02/2024) * PT-INR(Performed 04/02/2024) * CBC W AUTO DIFFERENTIAL(Performed 04/02/2024) * XR CHEST 1VW PORTABLE(Performed 04/02/2024) Performed for Acute respiratory failure with hypoxia (HCC) * GLUCOSE - POINT OF CARE(Performed 04/01/2024) * GLUCOSE - POINT OF CARE(Performed 04/01/2024) * SARS-COV-2 (COVID-19) FLU A/B RSV PCR RAPID(Performed 04/01/2024) * GLUCOSE - POINT OF CARE(Performed 04/01/2024) * ECHO COMPLETE W CONTRAST(Performed 04/01/2024) Performed for Sepsis with acute hypoxic respiratory failure, due to unspecified organism, unspecified whether septic shock present (HCC) * CCL LEFT HEART CATH(Performed 04/01/2024) * PTT(Performed 04/01/2024) * PT-INR(Performed 04/01/2024) * HEMOGLOBIN A1C(Performed 04/01/2024) * CBC W AUTO DIFFERENTIAL(Performed 04/01/2024) * GLUCOSE - POINT OF CARE(Performed 04/01/2024) * LIPID PROFILE(Performed 04/01/2024) * BASIC METABOLIC PANEL (CALCIUM TOTAL)(Performed 04/01/2024) * PTT(Performed 03/31/2024) * GLUCOSE - POINT OF CARE(Performed 03/31/2024) * PTT(Performed 03/31/2024) * PT-INR(Performed 03/31/2024) * TROPONIN-I HIGH SENSITIVE(Performed 03/31/2024) * CT ANGIO CHEST PULM EMBOLISM(Performed 03/31/2024) Performed for Sepsis with acute hypoxic respiratory failure, due to unspecified organism, unspecified whether septic shock present (HCC) * LACTIC ACID BLOOD(Performed 03/31/2024) * TROPONIN-I HIGH SENSITIVE(Performed 03/31/2024) * GLUCOSE - POINT OF CARE(Performed 03/31/2024) * CULTURE BLOOD(Performed 03/31/2024) * ERYTHROCYTE SEDIMENTATION RATE(Performed 03/31/2024) * PROCALCITONIN LEVEL(Performed 03/31/2024) * B-TYPE NATRIURETIC PEPTIDE(Performed 03/31/2024) * CULTURE BLOOD(Performed 03/31/2024) * XR CHEST 1VW PORTABLE(Performed 03/31/2024) Performed for Sepsis with acute hypoxic respiratory failure, due to unspecified organism, unspecified whether septic shock present (HCC) * BLOOD GASES ARTERIAL(Performed 03/31/2024) * C-REACTIVE PROTEIN(Performed 03/31/2024) * TSH REFLEX FREE T4(Performed 03/31/2024) * LACTIC ACID BLOOD(Performed 03/31/2024) * COMPREHENSIVE METABOLIC PANEL(Performed 03/31/2024) * CBC W AUTO DIFFERENTIAL(Performed 03/31/2024) * PT EVAL AND TREAT(Performed 03/31/2024) * OT EVAL AND TREAT(Performed 03/31/2024) * CA LARYNGOSCOPY,FLEX FIBER,DIAGNOSTIC(Performed 12/15/2023) Performed for Hoarseness of voice * CA LARYNGOSCOPY,FLEX FIBER,DIAGNOSTIC(Performed 06/09/2023) Performed for Hoarseness of voice * CA LARYNGOSCOPY,FLEX FIBER,DIAGNOSTIC(Performed 01/06/2023) Performed for Hoarseness of voice * PATHOLOGY TISSUE(Performed 11/21/2022) Performed for Vocal cord dysplasia * ENDOTRACHEAL TUBE NOTE(Performed 11/21/2022) * ENDOTRACHEAL TUBE NOTE(Performed 11/21/2022) * CA LARYNGOSCOPY,DIRCT,OP SCOP,EXC TUMR(Performed 11/21/2022) Performed for Vocal cord dysplasia * CA LARYNGOSCOPY,FLEX FIBER,DIAGNOSTIC(Performed 10/21/2022) Performed for Vocal cord dysplasia * ENDOTRACHEAL TUBE NOTE(Performed 09/21/2022) * PATHOLOGY TISSUE(Performed 09/21/2022) Performed for Leukoplakia of vocal cords * CA LARYNGOSCOPY,DIRCT,OP SCOP,EXC TUMR(Performed 09/21/2022) Performed for Leukoplakia of vocal cords * CA LARYNGOSCOPY,FLEX FIBER,DIAGNOSTIC(Performed 09/02/2022) Performed for Hoarseness of voice, Leukoplakia of vocal cords Results * CARDIAC RHYTHM STRIP ORDER (04/05/2024 1:14 AM POWDER BLENDER) Narrative 04/05/2024 1:14 AM POWDER BLENDER Ordered by an unspecified provider. Scanned Document CARDIAC SERVICES ORD ERABLES * (ABNORMAL) GLUCOSE - POINT OF CARE (04/03/2024 7:59 AM POWDER BLENDER) Only the most recent of11 resultswithin the time period is included. Glucose WB/POC 102(H) 70 - 99 mg/dL 04/03/2024 8:10 AM POWDER BLENDER [facility] Specimen Type Cap Fingerstick 2024 8:10 AM POWDER BLENDER [facility] Blood BLOOD SPECIMEN / Unknown 04/03/2024 7:59 AM POWDER BLENDER 04/03/2024 8:10 AM POWDER BLENDER Elodia Varela MD LAB - POINT OF CARE ORDERABLES [facility] [address] [address] * (ABNORMAL) BASIC METABOLIC PANEL (CALCIUM TOTAL) (04/03/2024 7:31 AM POWDER BLENDER) Only the most recent of3 resultswithin the time period is included. [facility] Glucose 113(H) 70 - 99 mg/dL 04/03/2024 8:05 AM [facility] Sodium 139 136 - 145 mmol/L 04/03/2024 8:05 AM [facility] Potassium 4.3 3.5 - 5.1 mmol/L 04/03/2024 8:05 AM [facility] Chloride 107 98 - 107 mmol/L 04/03/2024 8:05 AM [facility] CO2 20(L) 22 - 29 mmol/L 04/03/2024 8:05 AM [facility] Calcium 9.9 8.4 - 10.4 mg/dL 04/03/2024 8:05 AM [facility] Anion Gap 12 6 - 16 mmol/L 04/03/2024 8:05 AM [facility] BUN 28(H) 7 - 26 mg/dL 04/03/2024 8:05 AM [facility] Creatinine 0.80 0.57 - 1.11 mg/dL 04/03/2024 8:05 AM [facility] eGFR by CKD-EPI 83(L) >=90 mL/min/1.7 3 m2 04/03/2024 8:05 AM [facility] Blood BLOOD SPECIMEN / Unknown Lab Venipuncture / Unknown 04/03/2024 7:31 AM POWDER BLENDER 04/03/2024 7:37 AM POWDER BLENDER Mariah Chavez PA-C LAB - CHEMISTRY ORDERABLES [facility] [address] [address] * PHOSPHORUS BLOOD (04/03/2024 7:31 AM POWDER BLENDER) Only the most recent of2 resultswithin the time period is included. Phosphorus 3.2 2.5 - 4.5 mg/dL 04/03/2024 8:05 AM [facility] Blood BLOOD SPECIMEN / Unknown Lab Venipuncture / Unknown 04/03/2024 7:31 AM POWDER BLENDER 04/03/2024 7:37 AM POWDER BLENDER Mariah Chavez PA-C LAB - CHEMISTRY ORDERABLES [facility] [address] [place] [id number] * MAGNESIUM BLOOD (04/03/2024 7:31 AM POWDER BLENDER) Only the most recent of2 resultswithin the time period is included. Magnesium 2.1 1.6 - 2.6 mg/dL 04/03/2024 8:05 AM [facility] Blood BLOOD SPECIMEN / Unknown Lab Venipuncture / Unknown 04/03/2024 7:31 AM POWDER BLENDER 04/03/2024 7:37 AM [facility] Mariah Chavez PA-C LAB - CHEMISTRY ORDERABLES Performing Organization Address City/[facility]/ZIP Co de Phone Number [facility] [address] [place] [address] * PT-INR (04/03/2024 7:19 AM POWDER BLENDER) Only the most recent of4 resultswithin the time period is included. PT 13.6 12.1 - 14.8 sec 04/03/2024 7:48 AM [facility] INR 1.0 0.9 - 1.1 04/03/2024 7:48 AM [facility] Blood BLOOD SPECIMEN / Unknown Lab Venipuncture / Unknown 04/03/2024 7:19 AM POWDER BLENDER 04/03/2024 7:31 AM POWDER BLENDER Narrative [facility] - 04/03/2024 7:48 AM [facility] Conventional Warfarin Anticoagulant Therapy: INR Reference Range: 2.0-3.0 Intensive Warfarin Anticoagulant Therapy: INR Reference Range: 2.5-3.5 Emanuel Simons MD LAB - COAGULA TION ORDERABLES [facility] [address] [address] * CBC W AUTO DIFFERENTIAL (04/03/2024 7:19 AM [facility]) Only the most recent of4 resultswithin the time period is included. [facility] WBC 7.5 4.0 - 10.7 x10E9/L 04/03/2024 8:02 AM [facility] RBC Count 4.92 3.90 - 5.20 x10E12/L 04/03/2024 8:02 AM [facility] Hemoglobin 14.7 11.9 - 15.8 g/dL 04/03/2024 8:02 AM [facility] Hematocrit 42.5 34.8 - 46.1 % 04/03/2024 8:02 AM [facility] MCV 86.4 80.0 - 98.0 fL 04/03/2024 8:02 AM [facility] MCH 29.9 26.7 - 33.6 pg 04/03/2024 8:02 AM [facility] MCHC 34.6 31.7 - 36.3 g/dL 04/03/2024 8:02 AM [facility] RDW-CV 13.7 11.3 - 14.8 % 04/03/2024 8:02 AM [facility] Platelet Count 209 150 - 420 x10E9/L 04/03/2024 8:02 AM [facility] MPV 11.2 7.8 - 11.4 fL 04/03/2024 8:02 AM [facility] Neutrophil % 64.5 41.0 - 74.0 % 04/03/2024 8:02 AM [facility] Lymphocyte % 26.1 17.0 - 47.0 % 04/03/2024 8:02 AM [facility] Monocyte % 6.6 3.0 - 11.0 % 04/03/2024 8:02 AM [facility] Eosinophil % 1.3 0.0 - 7.0 % 04/03/2024 8:02 AM [facility] Basophil % 1.2 0.0 - 1.6 % 04/03/2024 8:02 AM [facility] Immature Granulocytes % 0.3 0.0 - 1.0 % 04/03/2024 8:02 AM [facility] Neutrophil Absolute 4.82 1.60 - 7.50 x10E9/L 04/03/2024 8:02 AM [facility] Lymphocyte Absolute 1.95 1.00 - 4.40 x10E9/L 04/03/2024 8:02 AM [facility] Monocyte Absolute 0.49 0.15 - 1.00 x10E9/L 04/03/2024 8:02 AM [facility] Eosinophil Absolute 0.10 0.00 - 0.60 x10E9/L 04/03/2024 8:02 AM [facility] Basophil Absolute 0.09 0.00 - 0.13 x10E9/L 04/03/2024 8:02 AM [facility] Blood BLOOD SPECIMEN / Unknown Lab Venipuncture / Unknown 04/03/2024 7:19 AM POWDER BLENDER 04/03/2024 7:31 AM POWDER BLENDER Emanuel Simons MD LAB - HEMATOL OGY ORDERABLES [facility] [address] [place] [id number] * REJECTED SPUTUM GRAM STAIN (04/02/2024 11:28 AM POWDER BLENDER) Gram Stain < 25 per low power field Polymorphonuclear cells. Consistent with poor quality specimen. 04/02/2024 3:51 PM [facility] MICROBIOLOGY Gram Stain Recollect if clinically indicated. 04/02/2024 3:51 PM [facility] MICROBIOLOGY Microbiology SPUTUM / Unknown Collection / Unknown 04/02/2024 11:28 AM POWDER BLENDER 04/02/2024 11:34 AM POWDER BLENDER Wei Greco MD LAB - MICROBIOLOGY O RDFINA [facility] MICROBIOLOG[facility] [address] [place] [address], [facility] [phone] * PROCALCITONIN LEVEL (04/02/2024 5:54 AM POWDER BLENDER) Only the most recent of2 resultswithin the time period is included. Procalcitonin 0.07 <0.10 ng/mL 04/02/2024 6:56 AM POWDER BLENDER [facility] Blood BLOOD SPECIMEN / Unknown Lab Venipuncture / Unknown 04/02/2024 5:54 AM POWDER BLENDER 04/02/2024 6:17 AM POWDER BLENDER Narrative [facility] - 04/02/2024 6:56 AM POWDER BLENDER The change in procalcitonin (PCT) concentration over [...] Change in Procalcitonin Calculator is available at [email or web address] If clinical picture has not improved and PCT remains high, reevaluate and consider treatment failure or other causes. Rodríguez Benz MD LAB - CHEMISTRY ROSEANNA KEE [facility] [address] [address] * XR Chest 1Vw Portable (04/02/2024 5:40 AM POWDER BLENDER) Only the most recent of2 resultswithin the time period is included. Anatomical Region Laterality Modality Chest Radiographic Pattie ging 04/02/2024 7:58 AM POWDER BLENDER Impressions 04/02/2024 8:08 AM POWDER BLENDER IMPRESSION: Decreased bilateral airspace disease. Edited by Phoebe Rico on 04/02/2024 8:03 AM > Interpreting Provider: Rod Palma MD on 04/02/2024 8:08 AM Narrative 04/02/2024 8:08 AM POWDER BLENDER XR CHEST 1VW PORTABLE INDICATION: J96.01: Acute [...] A/B RSV PCR RAPID (04/01/2024 1:24 PM POWDER BLENDER) COVID-19 PCR Not detected Not detected 04/01/19 2:24 PM POWDER BLENDER [facility] Influenza A PCR Not detected Not detected 04/01/2024 2:24 PM POWDER BLENDER [facility] Influenza B PCR Not detected Not detected 04/01/2024 2:24 PM POWDER BLENDER [facility] RSV PCR Not detected Not detected 04/01/2024 2:24 PM POWDER BLENDER [facility] Microbiology SPECIMEN FROM NASOPHARYNGEAL STRUCTURE / Unknown Collection / Unknown 04/01/2024 1:24 PM POWDER BLENDER 04/01/2024 1:39 PM POWDER BLENDER Narrative [facility] - 04/01/2024 2:24 PM POWDER BLENDER This nucleic acid amplification assay has been [...] Varela MD LAB - MICROBIOLOGY O RDERABLES [facility] [address] [address] * ECHO COMPLETE W CONTRAST (04/01/2024 11:34 AM POWDER BLENDER) AV pk grad 8.2 mmHg SSM CV [...] Laterality Modality Ultrasound 04/01/2024 11:0 0 AM POWDER BLENDER Narrative 04/01/2024 5:26 PM POWDER BLENDER Summary * Normal left ventricular size, global/ [...] 11:00 AM Patient Status: I/P [facility] EStudy Info Technical Quality: Technically Difficult Exam [...] Provider: Tejas Graves Attending Physician: Tejas Graves Geologist: Gaby Morales Left Ventricle Normal left ventricular [...] 11:00 AM Patient Status: I/P [facility] Primary [facility] EStudy Info Technical Quality: Technically Difficult Exam [...] Provider: Tejas Graves Attending Physician: Tejas Graves Geologist: Gaby Morales Left Ventricle Normal left ventricular [...] CCL LEFT HEART CATH (04/01/2024 9:32 AM POWDER BLENDER) Anatomical Region Laterality Modality X-Ray Angiograph y Narrative 04/01/2024 9:46 AM POWDER BLENDER Procedures Moderate sedation Left heart cardiac catheterization, selective coronary angiogram and left ventriculogram Indication-NSTEMI IMMIGRATION MANAGER-Chris Conte MD After informed consent was obtained the patient was transferred to the cardiac catheterization laboratory where bilateral groin areas were draped and prepped in sterile fashion. 1% lidocaine was utilized to achieve local anesthesia in the right femoral area. Utilizing Doppler guided ultrasound we accessed the right femoral artery and placed a 6 English sheath without any problems. A 5 English FL4 diagnostic catheter was utilized to cannulate the left main coronary artery and several angiographic views were obtained in different orthogonal planes of the left main LAD and left circumflex arteries. The catheter was exchanged over the wire for a 5 English FR4 and that catheter was utilized to [...] arteriotomy site was closed utilizing a 6 English Angio-Seal device with good hemostasis and no complications Estimated blood loss 30 cc Complications none Sedation Versed 2 mg IV and fentanyl 50 mcg IV Procedure Details Estimated Blood Loss: 30 mL Chris Conte MD CV CARDIAC CATH CUPI D PROCS * HEMOGLOBIN A1C (04/01/2024 7:06 AM POWDER BLENDER) Hemoglobin A1c 5.4 <5.7 % 04/01/2024 9:20 AM [facility] Estimated Average Glucose 108 mg/dL 04/01/2024 9:20 AM [facility] Blood BLOOD SPECIMEN / Unknown Lab Venipuncture / Unknown 04/01/2024 7:06 AM POWDER BLENDER 04/01/2024 7:17 AM [facility] Narrative [facility] - 04/01/2024 9:20 AM [facility] HbA1c Interpretation: Normal: < 5.7% Pre-diabetes: 5.7-6.4% [...] Graves MD LAB - CHEMISTRY ROSEANNA KEE [facility] [address] [place] [id number] * (ABNORMAL) PTT (04/01/2024 7:06 AM POWDER BLENDER) Only the most recent of3 resultswithin the time period is included. PTT 71.8(H) 23.0 - 38.4 sec 04/01/2024 7:35 AM POWDER BLENDER [facility] Blood BLOOD SPECIMEN / Unknown Lab Venipuncture / Unknown 04/01/2024 7:06 AM POWDER BLENDER 04/01/2024 7:17 AM POWDER BLENDER Narrative [facility] - 04/01/2024 7:35 AM POWDER BLENDER Heparin Therapeutic Range for PTT: 69.0 - 110.0 seconds. Emanuel Simons MD LAB - COAGULA TION ORDERABLES Performing Organization Address [facility] Co de Phone Number [facility] [address] [place] [address] * (ABNORMAL) LIPID PROFILE (04/01/2024 6:41 AM POWDER BLENDER) Cholesterol 195 <200 mg/dL 04/01/2024 10:41 AM [facility] Triglycerides 272(H) <150 mg/dL 04/01/2024 10:41 AM [facility] HDL Cholesterol 35(L) >40 mg/dL 5 10:41 AM [facility] LDL Calculated 106 <130 mg/dL 04/01/2024 10:41 AM [facility] VLDL Calculated 54(H) <=30 mg/dL 10:41 AM [facility] Chol HDL Ratio 5.6(H) <4.5 04/01/2024 10:41 AM [facility] LDL/HDL Ratio 3.0 <5.0 04/01/2024 10:41 AM [facility] Blood BLOOD SPECIMEN / Unknown Lab Venipuncture / Unknown 04/01/2024 6:41 AM POWDER BLENDER 04/01/2024 6:46 AM POWDER BLENDER Tejas Graves MD LAB - CHEMISTRY ROSE[place] KEE [facility] [address] [place] [address] * (ABNORMAL) TROPONIN-I HIGH SENSITIVE (03/31/2024 3:11 PM POWDER BLENDER) Only the most recent of2 resultswithin the time period is included. Troponin I High Sensitive 5,189(HH) <=14 ng/L 03/31/2024 4:00 PM POWDER BLENDER [facility] Blood BLOOD SPECIMEN / Unknown Lab Venipuncture / Unknown 03/31/2024 3:11 PM POWDER BLENDER 03/31/2024 3:19 PM POWDER BLENDER Tejas Graves MD LAB - CHEMISTRY ROSEANNA KEE Performing Organization Address City/[facility]/ZIP Co de Phone Number [facility] [address] [place] [address] * CT Angio Chest Pulm Embolism (03/31/2024 2:32 PM POWDER BLENDER) Anatomical Region Laterality Modality Chest Computed Tomogra phy 03/31/2024 2:41 PM POWDER BLENDER Impressions 03/31/2024 2:43 PM POWDER BLENDER IMPRESSION: 1. No pulmonary embolism. 2. Findings most consistent with congestive heart failure with interstitial and alveolar pulmonary edema and small pleural effusion. Differential includes infection. > Interpreting Provider: Daniele Pino MD on 03/31/2024 2:43 PM Narrative 03/31/2024 2:43 PM POWDER BLENDER PROCEDURE: CT ANGIO CHEST PULM EMBOLISM DATE/TIME [...] (ABNORMAL) LACTIC ACID BLOOD (03/31/2024 1:36 PM [employer]ER) Only the most recent of2 resultswithin the time period is included. Lactic Acid 2.9(H) <=2 mmol/L 03/31/2024 2:07 PM [facility] Blood BLOOD SPECIMEN / Unknown Lab Venipuncture / Unknown 03/31/2024 1:36 PM [employer] [employer] 03/31/2024 1:52 PM [employer] Tejas Graves MD LAB - CHEMISTRY ORDE RABLES Performing Organization Address City/[facility] Co de Phone Number [facility] [address] [place] [phone] * CULTURE BLOOD (03/31/2024 10:28 AM P[employer]ER) Only the most recent of2 resultswithin the time period is included. Pathologist [facility] Culture No growth day 5 ADE 04/05/2024 2:01 PM [employer] [employer] MICROBIOLOGY Blood PERIPHERAL BLOOD / Unknown Lab Venipuncture / Unknown 03/31/2024 10:28 AM POWDER BLENDER 03/31/2024 10:32 AM POWDER BLENDER Tejas Graves MD LAB - MICROBIOLOGY O RDERABLES Performing Organization Address [facility] Co de Phone Number [facility] MI[facility] [address] [place] [address], [facility] [phone] * ERYTHROCYTE SEDIMENTATION RATE (03/31/2024 10:16 AM POWDER BLENDER) Erythrocyte Sedimentation Rate Automated 14 0 - 30 MM/HR 03/31/2024 10:36 AM POWDER BLENDER [facility] Blood BLOOD SPECIMEN / Unknown Lab Venipuncture / Unknown 03/31/2024 10:16 AM POWDER BLENDER 03/31/2024 10:32 AM POWDER BLENDER Tjeas Graves MD LAB - HEMATOLOGY ORD ERABLES Performing Organization Address City/[facility] Co de Phone Number [facility] [address] [place] [phone] * (ABNORMAL) B-TYPE NATRIURETIC PEPTIDE (03/31/2024 10:16 AM [facility]) BNP 516(H) <=100 pg/mL 03/31/2024 10:55 AM [facility] Blood BLOOD SPECIMEN / Unknown Lab Venipuncture / Unknown 03/31/2024 10:16 AM POWDER BLENDER 03/31/2024 10:32 AM POWDER BLENDER Narrative [facility] - 03/31/2024 10:55 AM POWDER BLENDER A cutoff of 100 pg/mL has been [...] Graves MD LAB - CHEMISTRY ROSEANNA KEE [facility] Organization Address City/State/ZIP Co de Phone Number [facility] [address] [facility] [place] [address] * BLOOD GASES ARTERIAL (03/31/2024 9:29 AM POWDER BLENDER) Pathologist [facility] pH Arterial 7.44 7.35 - 7.45 pH 03/31/2024 9:33 AM POWDER BLENDER [facility]ER[facility] pO2 Arterial 84 80 - 100 mmHg 03/31/2024 9:33 AM POWDER BLENDER [facility]ERAP[facility] pCO2 Arterial 36 35 - 45 mmHg 03/31/2024 9:33 AM POWDER BLENDER [facility] HCO3 Arterial 24.5 22.0 - 26.0 mmol/L 03/31/2024 9:33 AM POWDER BLENDER [facility] BE Arterial 0.6 -2.0 - 2.0 mmol/L 03/31/2024 9:33 AM POWDER BLENDER [facility] O2 Saturation Arterial 99 90 - 100 % 03/31/2024 9:33 AM POWDER BLENDER [facility] Temperature (C) 37.0 C 9:33 AM POWDER BLENDER [facility]ERAP[facility] Galen's Test Positive 03/31/2024 9:33 AM POWDER BLENDER [facility] Mode Bipap 03/31/2024 9:33 AM POWDER BLENDER [facility] FI O2 40.0 % 03/31/2024 9:33 AM POWDER BLENDER [facility] BIPAP Insp Pressure (cmH2O) 10 03/31/2024 9:33 AM POWDER BLENDER [facility] BIPAP Exp Pressure (cmH2O) 5 03/31/2024 9:33 AM POWDER BLENDER [facility] P/F Ratio 210 03/31/2024 9:33 AM POWDER BLENDER [facility] Blood ARTERIAL BLOOD SPECIMEN / Unknown 03/31/2024 9:29 AM POWDER BLENDER 03/31/2024 9:29 AM POWDER BLENDER Tejas Graves MD LAB - BLOOD GASES OR DERABLES Performing Organization Address [facility]/ZIP Co de Phone Number [facility] [address] [id number] * TSH REFLEX FREE T4 (03/31/2024 9:25 AM POWDER BLENDER) TSH 1.568 0.350 - 4.940 uIU/mL 03/31/2024 10:20 AM POWDER BLENDER [facility] Blood BLOOD SPECIMEN / Unknown Lab Venipuncture / Unknown 03/31/2024 9:25 AM POWDER BLENDER 03/31/2024 9:30 AM POWDER BLENDER Tejas Graves MD LAB - CHEMISTRY ORDPaul KEE Performing Organization Address City/[facility]/ZIP Co de Phone Number [facility] [address] [place] [address] * (ABNORMAL) C-REACTIVE PROTEIN (03/31/2024 9:25 AM POWDER BLENDER) C-Reactive Protein 1.35(H) <=0.50 mg/dL 03/31/2024 9:58 AM POWDER BLENDER [facility] Blood BLOOD SPECIMEN / Unknown Lab Venipuncture / Unknown 03/31/2024 9:25 AM POWDER BLENDER 03/31/2024 9:30 AM POWDER BLENDER Tejas Graves MD LAB - CHEMISTRY ROSEANNA KEE [facility] [address] [place] [address] * (ABNORMAL) COMPREHENSIVE METABOLIC PANEL (03/31/2024 9:25 AM [facility]) Glucose 170(H) 70 - 99 mg/dL 03/31/2024 9:47 AM [facility] Sodium 142 136 - 145 mmol/L 03/31/2024 9:47 AM [facility] Potassium 4.0 3.5 - 5.1 mmol/L 03/31/2024 9:47 AM [facility] Chloride 109(H) 98 - 107 mmol/L 03/31/2024 9:47 AM [facility] CO2 21(L) 22 - 29 mmol/L 03/31/2024 9:47 AM [facility] Calcium 9.2 8.4 - 10.4 mg/dL 03/31/2024 9:47 AM [facility] Anion Gap 12 6 - 16 mmol/L 03/31/2024 9:47 AM [facility] BUN 20 7 - 26 mg/dL 03/31/2024 9:47 AM [facility] Creatinine 0.80 0.57 - 1.11 mg/dL 03/31/2024 9:47 AM [facility] Alkaline Phosphatase 120 40 - 150 U/L 03/31/2024 9:47 AM [facility] ALT 21 0 - 55 U/L 03/31/2024 9:47 AM [facility] AST 33 5 - 34 U/L 03/31/2024 9:47 AM [facility] Protein Total 7.0 6.4 - 8.3 gm/dL 03/31/2024 9:47 AM [facility] Albumin 3.6 3.4 - 5.0 gm/dL 03/31/2024 9:47 AM [facility] Bilirubin Total 0.4 0.2 - 1.2 mg/dL 03/31/2024 9:47 AM [facility] eGFR by CKD-EPI 83(L) >=90 mL/min/1.7 3 m2 03/31/2024 9:47 AM [facility] Blood BLOOD SPECIMEN / Unknown Lab Venipuncture / Unknown 03/31/2024 9:25 AM POWDER BLENDER 03/31/2024 9:30 AM POWDER BLENDER Tejas Graves MD LAB - CHEMISTRY ROSEANNA KEE [facility] Organization Address City/State/ZIP Co de Phone Number [facility] [address] [place] [id number] * CA LARYNGOSCOPY,FLEX FIBER,DIAGNOSTIC (12/15/2023 9:29 AM POWDER BLENDER) Narrative Liang Rob MD - 12/15/2023 9:29 AM POWDER BLENDER Liang Rob MD 12/15/2023 9:54 AM Procedure [...] Garcia MD PROCEDURE/MINOR SURG ICAL ORDERABLES * CA LARYNGOSCOPY,FLEX FIBER,DIAGNOSTIC (06/09/2023 12:52 PM CDT) Narrative [...] Stable. Patient tolerated procedure well. Complications: None aKsh Garcia MD PROCEDURE/MINOR SURG ICAL ORDERABLES * CA LARYNGOSCOPY,FLEX FIBER,DIAGNOSTIC (01/06/2023 11:22 AM POWDER BLENDER) Narrative Kash Garcia MD - 01/06/2023 11:22 AM POWDER BLENDER Kash Garcia MD 01/06/2023 11:23 AM Procedure [...] included. Case Report Surgical Pathology Report Case: [id number] Authorizing Provider: Kash Garcia MD Collected: 11/21/2022 08:14 AM Ordering Location: [facility] Received: 11/21/2022 10:54 AM Pathologist: Carol Cho MD Specimen: Vocal Cord Biopsy, left vocal cord lesion 11/25/2022 2:50 PM CDT [facility] Final Diagnosis Vocal cord, left lesion, biopsy (A): - Squamous mucosa with mild dysplasia (see comment) 11/25/2022 2:50 PM CDT [facility] Microscopic Description and Comment Extensive cautery artifact limits evaluation. Microscopic examination is performed and substantiates the above diagnosis. 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 Operative procedure: direct laryngoscopy. Dysplastic mucosa of anterior to middle aspect of the left true vocal fold, hyperkeratotic appearance of right anterior superior aspect of right true vocal fold. 11/25/2022 2:50 PM CDT [facility] Gross Description The requisition and specimen(s) are identified with the patient's name, Arlet Blake. Received in formalin, specimen A , are multiple fragments of granado-brown tissue, 0.2-0.5 cm, 0.5 x 0.3 x 0.2 cm in aggregate. Specimen is submitted in toto in cassette A1. [place] 11/25/2022 2:50 PM CDT [facility] Pathologist Location at [facility] 11/25/2022 2:50 PM CDT [facility] Disclaimer The performance characteristics of all immunohistochemical and indirect immunofluorescence stains (if any) cited in this report were determined by the Histopathology Laboratory of [facility]. Some of these tests were developed [...] the attending (teaching) pathologist. 11/25/2022 2:50 PM T [facility] Embedded Images 11/25/2022 2:50 PM T [facility] Biopsy, Excision BIOPSY OF VOCAL CORD / Unknown 11/21/2022 8:14 AM CDT 11/21/2022 10:54 AM CDT Comment:Pre-op diagnosis: Vocal cord dysplasia Kash Garcia MD LAB - PATHOLOGY/CYTO LOGY ORDERABLES [facility] [address] [place] [address], [facility] [phone] * ETT LINE PERFORMABLE (11/21/2022 8:03 AM CDT) Cedrick Luciano MD - 11/21/2022 8:03 AM CDT Cedrick Reyes MD 11/21/2022 8:03 AM Endotracheal Tube Placement: Patient Location: OR. Intubation Event Date/Time: 11/21/2022 7:48 AM Procedure: intubation ([id number]). Procedure Section: Sedation: under general anesthesia. Indications [...] ETT LINE PERFORMABLE (11/21/2022 8:02 AM CDT) Cedrick Luciano MD - 11/21/2022 8:02 AM CDT Cedrick Reyes MD 11/21/2022 8:03 AM Endotracheal Tube Placement: Patient Location: OR. Intubation Event Date/Time: 11/21/2022 7:38 AM Procedure: intubation (32570). Procedure Section: Sedation: under general anesthesia. Indications [...] Valderrama MD GENERAL ANESTHESIA O RDERABLES * CA LARYNGOSCOPY,FLEX FIBER,DIAGNOSTIC (10/21/2022 4:30 PM CDT) Narrative [...] ETT LINE PERFORMABLE (09/21/2022 9:52 AM CDT) Narrative Senia Pretty APRN-OBIE - 09/21/2022 9:52 AM CDT Senia Pretty APRN-CRNA 09/21/2022 9:55 AM Endotracheal Tube Placement: Patient Location: OR. Intubation Event Date/Time: 09/21/2022 9:16 AM Procedure: intubation ([id number]). Procedure Section: Sedation: under general anesthesia. Indications [...] AM. Staff Section Anesthesia Provider: Senia Pretty APRN-SITE SAFETY MANAGER, Performed the procedure Rodger Hooks MD GENERAL ANESTHESIA ORDERABLES * CA LARYNGOSCOPY,FLEX FIBER,DIAGNOSTIC (09/02/2022 8:51 AM CDT) Narrative Julio Hart MD - 09/02/2022 8:51 AM CDT Julio Hart MD 09/02/2022 9:24 AM Procedure Note Endoscopy Type: Laryngoscopy without stroboscopy 13784 Endoscope: Flexible 4mm Scope Anesthesia: Lidocaine 2% [...] MD PROCEDURE/MINOR SURG ICAL ORDERABLES Care Teams Storyboard Artist Relationship Specialty Start Date End Date Sara Irene, INSIGHTS ANALYST-LINE APPLIANCE ASSEMBLER [address] [place] [address] PCP - General Nurse Practitioner Family 7/24/23
--- OUTSIDE RECORDS SUMMARY | 2024-04-12 12:09 | XMS_ITS | Clinical Summary ---
Author Organization [facility] [employer] Address [address] [place] [address] Care Team Providers Care [employer] Portal Consultant Name Role Phone Sara Irene APRN-REMEDIAL TEACHER Primary Care Provid er Source Comments [facility],non-owned Affiliates and Associated Physician Practices is amultiple site organization consisting of ambulatory clinics and hospital sitesin [place], [place], [place] and [place]. This disclosure is being madepursuant to the Care Everywhere program and may not contain all information available regarding this patient. 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 Encounters Date Type Department Care Team Description 04/01/2024 8:30 AM [facility] - 04/01/2024 10:00 AM [facility] Surgery [facility] - Cardiac Right Of Way Agent [address] [address] Chris Conte MD Left Heart Cath 03/31/2024 9:06 AM [facility] - 04/03/2024 11:42 AM [facility] Hospital Encounter [facility] [facility] [address] [address] Juliana Siddiqui MD Sood, MD Nichole Lazaro Swati, MD Hospitalist Discharge Disposition: Home or Self Care 03/31/2024 Travel from Last 3 Months Immunizations Name Administration Dates Next Due Covid [...] and heating? Not hard at all 04/01/2024 [facility] [place] [facility] - Occupational Stress [...] any time in the past 12 [facility], were you homeless or living in a senior living (including now)? No 03/31/2024 Sex and Gender Information Value Date Recorded Sex Assigned at Not on file Gender Identity Not on file Sexual Orientation Not on file Last Filed Vital Signs Vital Sign Reading Time Taken Comments Blood Pressure 142/99 04/03/2024 7:59 AM [facility] Pulse 89 04/03/2024 9:18 AM [facility] Temperature 36.6 C (97.9 F) 04/03/2024 7:59 AM [facility] Respiratory Rate 18 04/03/2024 9:18 AM [facility] Oxygen Saturation 99% 04/03/2024 9:18 AM [facility] Inhaled Oxygen Concentration 40% 03/31/2024 4 :59 PM [facility] Weight 73.5 kg (162 lb) 04/02/2024 4:11 AM [facility] Height 157.5 cm (5' 2 ) 03/31/2024 10:03 AM [facility] Body Mass Index 29.63 03/31/2024 10:03 AM [facility] Plan of Treatment Upcoming Encounters Date Type Department Care Team (Late st Contact Info) Description 06/14/2024 9:00 AM CDT Office Visit [facility] - ENT [address], [place] [address] Kash Garcia MD [address] [facility] [place] [address] [place] [address] Health Maintenance Due Date Last [...] (2 of 2 - PCV) 05/12/2017 05/12/2016 Respiratory Syncytial Virus (RSV) Vaccine Pt: or over 60 yrs (1 - Risk 60-74 years 1-dose series) 2020 COVID-19 VACCINE (3 - season) 2023 05/22/2020, 04/24/2020 INFLUENZA VACCINE (#1) 2023 1, 11/13/2019, 11/29/2018, Additional history exists DEPRESSION SCREENING 02/07/2024 MEDICARE AWV CALENDAR YEAR 2024 SCREENING FOR DIABETES 04/03/2027 5, 04/03/2024, 04/02/2024, Additional history exists DTAP/TDAP/TD VACCINES (2 - Td or Tdap) 12/20/2032 12/20/2022 HEPATITIS B VACCINE Aged Out No longe [...] on patient's age to complete this topic Procedures Procedure Name Priority Date/Time Associated Diagnosis Comments CARDIAC RHYTHM STRIP ORDER 04/05/2024 1:14 AM [facility] GLUCOSE - POINT OF CARE Routine 04/03/2024 7:59 AM [facility] PHOSPHORUS BLOOD STAT 04/03/2024 7:31 AM [facility] MAGNESIUM BLOOD STAT 04/03/2024 7:31 AM [facility] BASIC METABOLIC PANEL (CALCIUM TOTAL) STAT 04/03/2024 7:31 AM [facility] PT-INR Routine 04/03/2024 7:19 AM [facility] CBC W AUTO DIFFERENTIAL Routine 04/03/2024 7:19 AM [facility] GLUCOSE - POINT OF CARE Routine 04/02/2024 4:54 PM [facility] GLUCOSE - POINT OF CARE Routine 04/02/2024 4:41 PM [facility] GLUCOSE - POINT OF CARE Routine 04/02/2024 11:28 AM [facility] REJECTED SPUTUM GRAM STAIN Routine 04/02/2024 11:28 AM [facility] GLUCOSE - POINT OF CARE Routine 04/02/2024 6:19 AM [facility] PROCALCITONIN LEVEL AM Draw 04/02/2024 5 :54 AM [facility] BASIC METABOLIC PANEL (CALCIUM TOTAL) AM Draw 04/02/2024 5:54 AM [facility] PHOSPHORUS BLOOD AM Draw 04/02/2024 5:54 AM [facility] MAGNESIUM BLOOD Routine 04/02/2024 5:54 AM [facility] PT-INR Routine 04/02/2024 5:54 AM [facility] CBC W AUTO DIFFERENTIAL Routine 04/02/2024 5:54 AM [facility] XR CHEST 1VW PORTABLE Routine 04/02/2024 5:40 AM [facility] Acute respiratory failure with hypoxia (HCC) GLUCOSE - POINT OF CARE Routine 04/01/2024 8:12 PM [facility] GLUCOSE - POINT OF CARE Routine 04/01/2024 4:35 PM [facility] SARS-COV-2 (COVID-19) FLU A/B RSV PCR RAPID STAT 04/01/2024 1:24 PM [facility] GLUCOSE - POINT OF CARE Routine 04/01/2024 11:54 AM [facility] ECHO COMPLETE W CONTRAST Routine 04/01/2024 11:34 AM [facility] Sepsis with acute hypoxic respiratory failure, due to unspecified organism, unspecified whether septic shock present (HCC) CCL LEFT HEART CATH Routine 04/01/2024 9 :32 AM [facility] PTT Timed 04/01/2024 7:06 AM [facility] PT-INR Routine 04/01/2024 7:06 AM [facility] HEMOGLOBIN A1C Routine 04/01/2024 7:06 AM [facility] CBC W AUTO DIFFERENTIAL AM Draw 04/01/2024 7:06 AM [facility] GLUCOSE - POINT OF CARE Routine 04/01/2024 6:41 AM [facility] LIPID PROFILE AM Draw 04/01/2024 6:41 AM [facility] BASIC METABOLIC PANEL (CALCIUM TOTAL) AM Draw 04/01/2024 6:41 AM [facility] PTT Timed 03/31/2024 11:32 PM [facility] GLUCOSE - POINT OF CARE Routine 03/31/2024 4:50 PM [facility] PTT Routine 03/31/2024 4:39 PM [facility] PT-INR Routine 03/31/2024 4:39 PM [facility] TROPONIN-I HIGH SENSITIVE Routine 03/31/2024 3:[address] [facility] [address] ANGIO CHEST PULM EMBOLISM Routine 03/31/2024 2:32 PM [facility] Sepsis with acute hypoxic respiratory failure, due to unspecified organism, unspecified whether septic shock present (HCC) LACTIC ACID BLOOD STAT 03/31/2024 1:3 6 PM [facility] TROPONIN-I HIGH SENSITIVE STAT 03/31/2024 12:46 PM [facility] GLUCOSE - POINT OF CARE Routine 03/31/2024 12:09 PM [facility] CULTURE BLOOD STAT 03/31/2024 10:28 AM [facility] ERYTHROCYTE SEDIMENTATION RATE Routine 03/31/2024 10:16 AM [facility] PROCALCITONIN LEVEL STAT 03/31/2024 1 0:16 AM [facility] B-TYPE NATRIURETIC PEPTIDE STAT 03/31/2024 10:16 AM [facility] CULTURE BLOOD STAT 03/31/2024 10:16 AM [facility] XR CHEST 1VW PORTABLE Routine 03/31/2024 9:52 AM [facility] Sepsis with acute hypoxic respiratory failure, due to unspecified organism, unspecified whether septic shock present (HCC) BLOOD GASES ARTERIAL RT Routine 03/31/2024 9:29 AM [facility] C-REACTIVE PROTEIN Routine 03/31/2024 9: 25 AM [facility] TSH REFLEX FREE T4 Routine 03/31/2024 9: 25 AM [facility] LACTIC ACID BLOOD STAT 03/31/2024 9:2 5 AM [facility] COMPREHENSIVE METABOLIC PANEL STAT 03/31/2024 9:25 AM [facility] CBC W AUTO DIFFERENTIAL STAT 03/31/2024 9:25 AM [facility] PT EVAL AND TREAT Routine 03/31/2024 9:2 3 AM [facility] OT EVAL AND TREAT Routine 03/31/2024 9:2 3 AM [facility] from Last 3 Months Results * CARDIAC RHYTHM STRIP ORDER (04/05/2024 1:14 AM [facility]) Narrative 04/05/2024 1:14 AM [facility] Ordered by an unspecified provider. Scanned Document CARDIAC SERVICES ORD ERABLES * (ABNORMAL) GLUCOSE - POINT OF CARE (04/03/2024 7:59 AM [facility]) Only the most recent of11 resultswithin the time period is included. Glucose WB/POC 102(H) 70 - 99 mg/dL 04/03/2024 8:10 AM [facility] Specimen Type Cap Fingerstick 2024 8:10 AM [facility] Blood BLOOD SPECIMEN / Unknown 04/03/2024 7:59 AM [facility] 04/03/2024 8:10 AM [facility] Elodia Varela MD LAB - POINT OF CARE ORDERABLES [facility] [place] [address] * (ABNORMAL) BASIC METABOLIC PANEL (CALCIUM TOTAL) (04/03/2024 7:31 AM [facility]) Only the most recent of3 resultswithin the time period is included. Glucose 113(H) 70 - 99 mg/dL 04/03/2024 8:05 AM [facility] Sodium 139 136 - 145 mmol/L 04/03/2024 8:05 AM [facility] Potassium 4.3 3.5 - 5.1 mmol/L 04/03/2024 8:05 AM [facility] Chloride 107 98 - 107 mmol/L 04/03/2024 8:05 AM [facility] CO2 20(L) 22 - 29 mmol/L 04/03/2024 8:05 AM [facility] Calcium 9.9 8.4 - 10.4 mg/dL 04/03/2024 8:05 AM [facility] Anion Gap 12 6 - 16 mmol/L 04/03/2024 8:05 AM [facility] BUN 28(H) 7 - 26 mg/dL 04/03/2024 8:05 AM [facility] Creatinine 0.80 0.57 - 1.11 mg/dL 04/03/2024 8:05 AM [facility] eGFR by CKD-EPI 83(L) >=90 mL/min/1.7 3 m2 04/03/2024 8:05 AM [facility] Blood BLOOD SPECIMEN / Unknown Lab Venipuncture / Unknown 04/03/2024 7:31 AM [facility] 04/03/2024 7:37 AM [facility] Mariah Chavez PA-C LAB - CHEMISTRY ORDERABLES [facility] [address] [place] [address] * PHOSPHORUS BLOOD (04/03/2024 7:31 AM [facility]) Only the most recent of2 resultswithin the time period is included. Phosphorus 3.2 2.5 - 4.5 mg/dL 04/03/2024 8:05 AM [facility] Blood BLOOD SPECIMEN / Unknown Lab Venipuncture / Unknown 04/03/2024 7:31 AM [facility] 04/03/2024 7:37 AM [facility] Mariah Chavez PA-C LAB - CHEMISTRY ORDERABLES [facility] [place] [id number] * MAGNESIUM BLOOD (04/03/2024 7:31 AM [facility]) Only the most recent of2 resultswithin the time period is included. Pathologist [facility] Magnesium 2.1 1.6 - 2.6 mg/dL 04/03/2024 8:05 AM [facility] Blood BLOOD SPECIMEN / Unknown Lab Venipuncture / Unknown 04/03/2024 7:31 AM [facility] 04/03/2024 7:37 AM [facility] Mariah Chavez PA-C LAB - CHEMISTRY ORDERABLES Performing Organization Address [facility] Co de Phone Number [facility] [place] [address] * PT-INR (04/03/2024 7:19 AM [facility]) Only the most recent of4 resultswithin the time period is included. Pathologist [facility] PT 13.6 12.1 - 14.8 sec 04/03/2024 7:48 AM [facility] INR 1.0 0.9 - 1.1 04/03/2024 7:48 AM [facility] Blood BLOOD SPECIMEN / Unknown Lab Venipuncture / Unknown 04/03/2024 7:19 AM [facility] 04/03/2024 7:31 AM [facility] Narrative [facility] - 04/03/2024 7:48 AM [facility] Conventional Warfarin Anticoagulant Therapy: INR Reference Range: 2.0-3.0 Intensive Warfarin Anticoagulant Therapy: INR Reference Range: 2.5-3.5 Emanuel Simons MD LAB - COAGULA TION ORDERABLES Performing Organization Address City/[facility]/ZIP Co de Phone Number [facility] [address] [place] [id number] * CBC W AUTO DIFFERENTIAL (04/03/2024 7:19 AM [facility]) Only the most recent of4 resultswithin the time period is included. Pathologist [facility] WBC 7.5 4.0 - 10.7 x10E9/L 04/03/2024 8:02 AM [facility] RBC Count 4.92 3.90 - 5.20 x10E12/L 04/03/2024 8:02 AM [facility] Hemoglobin 14.7 11.9 - 15.8 g/dL 04/03/2024 8:02 AM [facility] Hematocrit 42.5 34.8 - 46.1 % 04/03/2024 8:02 AM [facility] MCV 86.4 80.0 - 98.0 fL 04/03/2024 8:02 AM [facility] MCH 29.9 26.7 - 33.6 pg 04/03/2024 8:02 AM [facility] MCHC 34.6 31.7 - 36.3 g/dL 04/03/2024 8:02 AM [facility] RDW-CV 13.7 11.3 - 14.8 % 04/03/2024 8:02 AM [facility] Platelet Count 209 150 - 420 x10E9/L 04/03/2024 8:02 AM [facility] MPV 11.2 7.8 - 11.4 fL 04/03/2024 8:02 AM [facility] Neutrophil % 64.5 41.0 - 74.0 % 04/03/2024 8:02 AM [facility] Lymphocyte % 26.1 17.0 - 47.0 % 04/03/2024 8:02 AM [facility] Monocyte % 6.6 3.0 - 11.0 % 04/03/2024 8:02 AM [facility] Eosinophil % 1.3 0.0 - 7.0 % 04/03/2024 8:02 AM [facility] Basophil % 1.2 0.0 - 1.6 % 04/03/2024 8:02 AM [facility] Immature Granulocytes % 0.3 0.0 - 1.0 % 04/03/2024 8:02 AM [facility] Neutrophil Absolute 4.82 1.60 - 7.50 x10E9/L 04/03/2024 8:02 AM [facility] Lymphocyte Absolute 1.95 1.00 - 4.40 x10E9/L 04/03/2024 8:02 AM [facility] Monocyte Absolute 0.49 0.15 - 1.00 x10E9/L 04/03/2024 8:02 AM [facility] Eosinophil Absolute 0.10 0.00 - 0.60 x10E9/L 04/03/2024 8:02 AM [facility] Basophil Absolute 0.09 0.00 - 0.13 x10E9/L 04/03/2024 8:02 AM [facility] Blood BLOOD SPECIMEN / Unknown Lab Venipuncture / Unknown 04/03/2024 7:19 AM [facility] 04/03/2024 7:31 AM [facility] Emanuel Simons MD LAB - HEMATOL OGY ORDERABLES [facility] [address] [place] [address] * REJECTED SPUTUM GRAM STAIN (04/02/2024 11:28 AM [facility]) Gram Stain < 25 per low power field Polymorphonuclear cells. Consistent with poor quality specimen. 04/02/2024 3:51 PM [facility] MICROBIOLOGY Gram Stain Recollect if clinically indicated. 04/02/2024 3:51 PM [facility] MICROBIOLOGY Microbiology SPUTUM / Unknown Collection / Unknown 04/02/2024 11:28 AM [facility] 04/02/2024 11:34 AM [facility] Wei Greco MD LAB - MICROBIOLOGY O RDERABLES [facility] MICROBIOLOGY [address] [place] [address], [facility] [phone] * PROCALCITONIN LEVEL (04/02/2024 5:54 AM [facility]) Only the most recent of2 resultswithin the time period is included. Procalcitonin 0.07 <0.10 ng/mL 04/02/2024 6:56 AM [facility] Blood BLOOD SPECIMEN / Unknown Lab Venipuncture / Unknown 04/02/2024 5:54 AM [facility] 04/02/2024 6:17 AM [facility] Narrative [facility] - 04/02/2024 6:56 AM [facility] The change in procalcitonin (PCT) concentration over [...] Change in Procalcitonin Calculator is available at [email or web address].[email or web address] If clinical picture has not improved and PCT remains high, reevaluate and consider treatment failure or other causes. Rodríguez Benz MD [facility] Organization Address City/State/ZIP Co de Phone Number [facility] [address] [place] [address] * XR Chest 1Vw Portable (04/02/2024 5:40 AM [facility]) Only the most recent of2 resultswithin the time period is included. Anatomical Region Laterality Modality Chest Radiographic Pattie ging 04/02/2024 7:58 AM [facility] Impressions 04/02/2024 8:08 AM [facility] IMPRESSION: Decreased bilateral airspace disease. Edited by Phoebe Rico on 04/02/2024 8:03 AM > Interpreting Provider: oRd Palma MD on 04/02/2024 8:08 AM Narrative 04/02/2024 8:08 AM [facility] XR CHEST 1VW PORTABLE INDICATION: J96.01: Acute [...] A/B RSV PCR RAPID (04/01/2024 1:24 PM [facility]) COVID-19 PCR Not detected Not detected 04/01/19 2:24 PM [facility] Influenza A PCR Not detected Not detected 04/01/2024 2:24 PM [facility] Influenza B PCR Not detected Not detected 04/01/2024 2:24 PM [facility] RSV PCR Not detected Not detected 04/01/2024 2:24 PM [facility] Microbiology SPECIMEN FROM NASOPHARYNGEAL STRUCTURE / Unknown Collection / Unknown 04/01/2024 1:24 PM [facility] 04/01/2024 1:39 PM [facility] Narrative [facility] - 04/01/2024 2:24 PM [facility] This nucleic acid amplification assay has been [...] Varela MD LAB - MICROBIOLOGY O RDERABLES [facility] [address] [address] * ECHO COMPLETE W CONTRAST (04/01/2024 11:34 AM [facility]) AV pk grad 8.2 mmHg [facility] CV [...] Laterality Modality Ultrasound 04/01/2024 11:0 0 AM [facility] Narrative 04/01/2024 5:26 PM [facility] Summary * Normal left ventricular size, global/ [...] 11:00 AM Patient Status: I/P Study Site: [facility] Primary Location: [facility] EStudy Info Technical Quality: Technically Difficult [...] Provider: Tejas Graves Attending Physician: Tejas Graves Director Dietetics Department: Gaby Morales Left Ventricle Normal left ventricular [...] 11:00 AM Patient Status: I/P Study Site: [facility] Primary Location: [facility] EStudy Info Technical Quality: Technically Difficult [...] Provider: Tejas Graves Attending Physician: Tejas Graves Director Dietetics Department: Gaby Morales Left Ventricle Normal left ventricular [...] CCL LEFT HEART CATH (04/01/2024 9:32 AM [facility]) Anatomical Region Laterality Modality X-Ray Angiograph y Narrative 04/01/2024 9:46 AM [facility] Procedures Moderate sedation Left heart cardiac catheterization, selective coronary angiogram and left ventriculogram Indication-NSTEMI COMPOSITE BOND WORKER-Chris Conte MD After informed consent was obtained the patient was transferred to the cardiac catheterization laboratory where bilateral groin areas were draped and prepped in sterile fashion. 1% lidocaine was utilized to achieve local anesthesia in the right femoral area. Utilizing Doppler guided ultrasound we accessed the right femoral artery and placed a 6 Jordanian sheath without any problems. A 5 Jordanian FL4 diagnostic catheter was utilized to cannulate the left main coronary artery and several angiographic views were obtained in different orthogonal planes of the left main LAD and left circumflex arteries. The catheter was exchanged over the wire for a 5 Jordanian FR4 and that catheter was utilized to [...] arteriotomy site was closed utilizing a 6 Jordanian Angio-Seal device with good hemostasis and no complications Estimated blood loss 30 cc Complications none Sedation Versed 2 mg IV and fentanyl 50 mcg IV Procedure Details Estimated Blood Loss: 30 mL Chris Conte MD CV CARDIAC CATH CUPI D PROCS * HEMOGLOBIN A1C (04/01/2024 7:06 AM [facility]) [facility] Signature Hemoglobin A1c 5.4 <5.7 % 04/01/2024 9:20 AM [facility] Estimated Average Glucose 108 mg/dL 04/01/2024 9:20 AM [facility] Blood BLOOD SPECIMEN / Unknown Lab Venipuncture / Unknown 04/01/2024 7:06 AM [facility] 04/01/2024 7:17 AM [facility] Narrative [facility] - 04/01/2024 9:20 AM [facility] HbA1c Interpretation: Normal: < 5.7% Pre-diabetes: 5.7-6.4% [...] Graves MD LAB - CHEMISTRY RO[facility]NA K[facility] Organization Address City/State/ZIP Co de Phone Number [facility] [address] [place] [address] * (ABNORMAL) PTT (04/01/2024 7:06 AM [facility]) Only the most recent of3 resultswithin the time period is included. PTT 71.8(H) 23.0 - 38.4 sec 04/01/2024 7:35 AM [facility] Blood BLOOD SPECIMEN / Unknown Lab Venipuncture / Unknown 04/01/2024 7:06 AM [facility] 04/01/2024 7:17 AM [facility] Narrative [facility] - 04/01/2024 7:35 AM [facility] Heparin Therapeutic Range for PTT: 69.0 - 110.0 seconds. Emanuel Simons MD LAB - COAGULA TION ORDERABLES [facility] [address] [place] [address] * (ABNORMAL) LIPID PROFILE (04/01/2024 6:41 AM [facility]) Cholesterol 195 <200 mg/dL 04/01/2024 10:41 AM [facility] Triglycerides 272(H) <150 mg/dL 04/01/2024 10:41 AM [facility] HDL Cholesterol 35(L) >40 mg/dL 10:41 AM [facility] LDL Calculated 106 <130 mg/dL 04/01/2024 10:41 AM [facility] VLDL Calculated 54(H) <=30 mg/dL 10:41 AM [facility] Chol HDL Ratio 5.6(H) <4.5 04/01/2024 10:41 AM [facility] LDL/HDL Ratio 3.0 <5.0 04/01/2024 10:41 AM [facility] Blood BLOOD SPECIMEN / Unknown Lab Venipuncture / Unknown 04/01/2024 6:41 AM [facility] 04/01/2024 6:46 AM [facility] Tejas Graves MD LAB - CHEMISTRY ROSEANNA KEE Performing Organization Address City/[facility]/ZIP Co de Phone Number [facility] [address] [place] [address] * (ABNORMAL) TROPONIN-I HIGH SENSITIVE (03/31/2024 3:11 PM [facility]) Only the most recent of2 resultswithin the time period is included. Troponin I High Sensitive 5,189(HH) <=14 ng/L 03/31/2024 4:00 PM [facility] Blood BLOOD SPECIMEN / Unknown Lab Venipuncture / Unknown 03/31/2024 3:11 PM [facility] 03/31/2024 3:19 PM [facility] Tejas Graves MD LAB - CHEMISTRY ORDPaul TARYNRORY Liang Organization Address City/State/ZIP Co de Phone Number [facility] [address] [address] * CT Angio Chest Pulm Embolism (03/31/2024 2:32 PM [facility]) Anatomical Region Laterality Modality Chest Computed Tomogra phy 03/31/2024 2:41 PM [facility] Impressions 03/31/2024 2:43 PM [facility] IMPRESSION: 1. No pulmonary embolism. 2. Findings most consistent with congestive heart failure with interstitial and alveolar pulmonary edema and small pleural effusion. Differential includes infection. > Interpreting Provider: Daniele Pino MD on 03/31/2024 2:43 PM Narrative 03/31/2024 2:43 PM [facility] PROCEDURE: CT ANGIO CHEST PULM EMBOLISM DATE/TIME [...] (ABNORMAL) LACTIC ACID BLOOD (03/31/2024 1:36 PM [facility]) Only the most recent of2 resultswithin the time period is included. Lactic Acid 2.9(H) <=2 mmol/L 03/31/2024 2:07 PM [facility] Blood BLOOD SPECIMEN / Unknown Lab Venipuncture / Unknown 03/31/2024 1:36 PM [facility] 03/31/2024 1:52 PM [facility] Tejas Graves MD LAB - CHEMISTRY ROSEANNA KEE [facility] Organization Address City/State/ZIP Co de Phone Number [facility] [address] [id number] * CULTURE BLOOD (03/31/2024 10:28 AM [facility]) Only the most recent of2 resultswithin the time period is included. Pathologist [facility] Culture No growth day 5 ADE 04/05/2024 2:01 PM [facility] Blood PERIPHERAL BLOOD / Unknown Lab Venipuncture / Unknown 03/31/2024 10:28 AM [facility] 03/31/2024 10:32 AM [facility] Tejas Graves MD LAB - MICROBIOLOGY O RDERABLES [facility] [address] [place] [address] [phone] * ERYTHROCYTE SEDIMENTATION RATE (03/31/2024 10:16 AM [facility]) Pathologist [facility] Erythrocyte Sedimentation Rate Automated 14 0 - 30 MM/HR 03/31/2024 10:36 AM [facility] Blood BLOOD SPECIMEN / Unknown Lab Venipuncture / Unknown 03/31/2024 10:16 AM [facility] 03/31/2024 10:32 AM [facility] Tejas Graves MD LAB - HEMATOLOGY ORD ERABLES [facility] [address] [place] [address] * (ABNORMAL) B-TYPE NATRIURETIC PEPTIDE (03/31/2024 10:16 AM [facility]) Pathologist [facility] BNP 516(H) <=100 pg/mL 03/31/2024 10:55 AM [facility] Blood BLOOD SPECIMEN / Unknown Lab Venipuncture / Unknown 03/31/2024 10:16 AM [facility] 03/31/2024 10:32 AM [facility] Narrative [facility] - 03/31/2024 10:55 AM [facility] A cutoff of 100 pg/mL has been [...] Graves MD LAB - CHEMISTRY ROSEANNA KEE [facility] Organization Address City/State/ZIP Co de Phone Number [facility] [address] [place] [address] * BLOOD GASES ARTERIAL (03/31/2024 9:29 AM [facility]) pH Arterial 7.44 7.35 - 7.45 pH 03/31/2024 9:33 AM [facility] pO2 Arterial 84 80 - 100 mmHg 03/31/2024 9:33 AM [facility] pCO2 Arterial 36 35 - 45 mmHg 03/31/2024 9:33 AM [facility] HCO3 Arterial 24.5 22.0 - 26.0 mmol/L 03/31/2024 9:33 AM [facility] BE Arterial 0.6 -2.0 - 2.0 mmol/L 03/31/2024 9:33 AM [facility] O2 Saturation Arterial 99 90 - 100 % 03/31/2024 9:33 AM [facility] Temperature (C) 37.0 C 9:33 AM [facility] Galen's Test Positive 03/31/2024 9:33 AM [facility] Mode Bipap 03/31/2024 9:33 AM [facility] FI O2 40.0 % 03/31/2024 9:33 AM [facility] BIPAP Insp Pressure (cmH2O) 10 03/31/2024 9:33 AM [facility] BIPAP Exp Pressure (cmH2O) 5 03/31/2024 9:33 AM [facility] P/F Ratio 210 03/31/2024 9:33 AM [facility] Blood ARTERIAL BLOOD SPECIMEN / Unknown 03/31/2024 9:29 AM [facility] 03/31/2024 9:29 AM [facility] Tejas Graves MD LAB - BLOOD GASES OR DERABLES Performing Organization Address [facility]/ZIP Co de Phone Number [facility] RESP THERAPY [address] [address], [facility] * TSH REFLEX FREE T4 (03/31/2024 9:25 AM [facility]) TSH 1.568 0.350 - 4.940 uIU/mL 03/31/2024 10:20 AM [facility] Blood BLOOD SPECIMEN / Unknown Lab Venipuncture / Unknown 03/31/2024 9:25 AM [facility] 03/31/2024 9:30 AM [facility] Tejas Graves MD LAB - CHEMISTRY ORDE CHILANGO Performing Organization Address [facility] Co de Phone Number [facility] [address] [address] * (ABNORMAL) C-REACTIVE PROTEIN (03/31/2024 9:25 AM [facility]) C-Reactive Protein 1.35(H) <=0.50 mg/dL 03/31/2024 9:58 AM [facility] Blood BLOOD SPECIMEN / Unknown Lab Venipuncture / Unknown 03/31/2024 9:25 AM [facility] 03/31/2024 9:30 AM [facility] Tejas Graves MD LAB - CHEMISTRY ROSEANNA KEE Performing Organization Address [facility]/ZIP Co de Phone Number [facility] [address] [address] * (ABNORMAL) COMPREHENSIVE METABOLIC PANEL (03/31/2024 9:25 AM [facility]) Glucose 170(H) 70 - 99 mg/dL 03/31/2024 9:47 AM [facility] Sodium 142 136 - 145 mmol/L 03/31/2024 9:47 AM [facility] Potassium 4.0 3.5 - 5.1 mmol/L 03/31/2024 9:47 AM [facility] Chloride 109(H) 98 - 107 mmol/L 03/31/2024 9:47 AM [facility] CO2 21(L) 22 - 29 mmol/L 03/31/2024 9:47 AM [facility] Calcium 9.2 8.4 - 10.4 mg/dL 03/31/2024 9:47 AM [facility] Anion Gap 12 6 - 16 mmol/L 03/31/2024 9:47 AM [facility] BUN 20 7 - 26 mg/dL 03/31/2024 9:47 AM [facility] Creatinine 0.80 0.57 - 1.11 mg/dL 03/31/2024 9:47 AM [facility] Alkaline Phosphatase 120 40 - 150 U/L 03/31/2024 9:47 AM [facility] ALT 21 0 - 55 U/L 03/31/2024 9:47 AM [facility] AST 33 5 - 34 U/L 03/31/2024 9:47 AM [facility] Protein Total 7.0 6.4 - 8.3 gm/dL 03/31/2024 9:47 AM [facility] Albumin 3.6 3.4 - 5.0 gm/dL 03/31/2024 9:47 AM [facility] Bilirubin Total 0.4 0.2 - 1.2 mg/dL 03/31/2024 9:47 AM [facility] eGFR by CKD-EPI 83(L) >=90 mL/min/1.7 3 m2 03/31/2024 9:47 AM [facility] Blood BLOOD SPECIMEN / Unknown Lab Venipuncture / Unknown 03/31/2024 9:25 AM [facility] 03/31/2024 9:30 AM [facility] Tejas Graves MD LAB - CHEMISTRY ROSEANNA KEE [facility] [address] [phone] from Last 3 Months Advance Directives * Full Code (Latest Code Status on File) Date Activated Date Inactivated Comments 04/01/2024 9:41 AM 04/03/2024 12:47 PM * Full Code Date Activated Date Inactivated Comments 03/31/2024 9:24 AM 04/01/2024 9:41 AM [employer] Consultant Relationship Specialty Start Date End Date Sara Irene, [employer] [address] [place] [address] PCP - General Nurse Practitioner Family 08/29/22
[2024-04-12 12:43] LABS: Alanine Aminotransferase 24 U/L (14-59); Albumin Level 4.1 g/dL (3.4-5.0); Alkaline Phosphatase 140 U/L (46-116); Anion Gap 7 mmol/L (4-12); Aspartate Amino Transferase 12 U/L (15-37); Bilirubin,Total 0.4 mg/dL (0.00-1.00); Blood Urea Nitrogen 23 mg/dL (7-18); Calcium 9.5 mg/dL (8.5-10.1); Carbon Dioxide 32 mmol/L (21-32); Chloride 103 mmol/L (98-108); Estimated Glomerular Filt Rate 58; Glucose 94 mg/dL (70-99); NT Pro B Type Natriuretic Pept 960 pg/mL (0-125); Osmolality Calculated 297 mOsm/kg (285-295); Potassium 4.5 mmol/L (3.5-5.1); Sodium 142 mmol/L (136-145); Total Protein 7.3 g/dL (6.4-8.2)
== END 2024-04-12 11:14 | disposition home or self-care (01) ==
LOC: CHSLAB 11:15
PROVIDERS: PCP Nurse Practitioner Family; Visit Provider Nurse Practitioner Family
DX: I10 Essential (primary) hypertension (principal); I50.9 Heart failure, unspecified
CPT/HCPCS: 36415; 80053; 83880; 85025

== ENCOUNTER 2024-04-13 05:47 | Observation (INO) | payer MEDICARE, SELFPAY ==
[2024-04-13] VITALS (23 sets, daily range): BP systolic 152–196; BP diastolic 51–103; PULSE 67–99; RESP 14–24; TEMP 36.4–37.2; O2SAT 93–100; BMI 25.5
--- NOTE | ~2024-04-13 | CT_ITS ---
EXAMINATION: CT abdomen pelvis w con DATE: 04/13/2024 08:00 INDICATION: Abdominal pain. Nausea and vomiting. Diarrhea. TECHNIQUE: Computed tomography (CT) of the abdomen and pelvis was performed with 100 mL Omnipaque 350 intravenous contrast. Automated exposure control and iterative reconstruction technique were employe d. The dose-length product was 591.82 mGy-cm. COMPARISON: CT abdomen and pelvis 06/01/2021 FINDINGS: The visualized portions of the lung bases are clear without pneumonia or pleural effusion. The heart size is normal. No pericardial effusion. There are coronary artery calcifications. The live r, gallbladder, pancreas, and adrenal glands are normal. Calcifications in the spleen are consistent with old granulomatous disease. The kidneys are normal. There are no dilated loops of bowel. The appe ndix is normal. There are no pathologically enlarged lymph nodes. There is no free intraperitoneal fl uid. There is mild thoracic and lumbar spondylosis. IMPRESSION: 1. No etiology for the patient's symptoms. Reviewed, dictated and finalized at location A. OYMENT TECHNICIAN
--- OUTSIDE RECORDS SUMMARY | 2024-04-13 05:49 | XMS_ITS | Referral Summary ---
Author Organization [facility] Address [address] [place] [address] Care Team Providers Care Bobbin Doffer Name Role Phone Sara Irene PLATE FILLER-INTERPRETIVE NATURALIST Primary Care Provid er Source Comments [facility],non-owned Affiliates and Associated Physician Practices is amultiple site organization consisting of ambulatory clinics and hospital sitesin [place], [place], [place] and [place]. This disclosure is being madepursuant to the Care Everywhere program and may not contain all information available regarding this patient. Last updated 17.[facility] Encounters Date Type Department Care Team Description 03/31/2024 9:06 AM DIRECTOR COMPENSATION - 04/03/2024 11:42 AM [facility] Hospital Encounter [facility] [address] [id number] Juliana Siddiqui MD Sood, Anshu, MD Choudhary, Swati, MD Hospitalist Discharge Disposition: Home or Self Care 04/01/2024 8:30 AM DIRECTOR COMPENSATION - 04/01/2024 10:00 AM [facility] Surgery [facility] - Cardiac Sales Rep [address] [id number] Chris Conte MD Left Heart Cath 03/31/2024 [...] fluticasone propionate (Flonase) 50 MCG/ACT nasal spray Baker 1 (one) spray into each nostril once [...] and heating? Not hard at all 04/01/2024 [facility] Occupat ional Health - Occupational Stress [...] any time in the past 12 m [facility], were you homeless or living in a nursing home (including now)? No 03/31/2024 Sex and Gender Information Value Date Recorded Sex Assigned at Not on file Gender Identity Not on file Sexual Orientation Not on file Last Filed Vital Signs Vital Sign Reading Time Taken Comments Blood Pressure 142/99 04/03/2024 7:59 AM DIRECTOR COMPENSATION Pulse 89 04/03/2024 9:18 AM DIRECTOR COMPENSATION Temperature 36.6 C (97.9 F) 04/03/2024 7:59 AM DIRECTOR COMPENSATION Respiratory Rate 18 04/03/2024 9:18 AM DIRECTOR COMPENSATION Oxygen Saturation 99% 04/03/2024 9:18 AM DIRECTOR COMPENSATION Inhaled Oxygen Concentration 40% 03/31/2024 4 :59 PM DIRECTOR COMPENSATION Weight 73.5 kg (162 lb) 04/02/2024 4:11 AM DIRECTOR COMPENSATION Height 157.5 cm (5' 2 ) 03/31/2024 10:03 AM DIRECTOR COMPENSATION Body Mass Index 29.63 03/31/2024 10:03 AM DIRECTOR COMPENSATION Functional Status Functional Status Response Date of [...] Visit [facility] [address], [place] [address] Kash Garcia MD [address] [place] [address] Procedures Procedure Name Priority Date/Time Associated Diagnosis Comments CARDIAC RHYTHM STRIP ORDER 04/05/2024 1:14 AM DIRECTOR COMPENSATION GLUCOSE - POINT OF CARE Routine 04/03/2024 7:59 AM DIRECTOR COMPENSATION PHOSPHORUS BLOOD STAT 04/03/2024 7:31 AM DIRECTOR COMPENSATION MAGNESIUM BLOOD STAT 04/03/2024 7:31 AM DIRECTOR COMPENSATION BASIC METABOLIC PANEL (CALCIUM TOTAL) STAT 04/03/2024 7:31 AM DIRECTOR COMPENSATION PT-INR Routine 04/03/2024 7:19 AM DIRECTOR COMPENSATION CBC W AUTO DIFFERENTIAL Routine 04/03/2024 7:19 AM DIRECTOR COMPENSATION GLUCOSE - POINT OF CARE Routine 04/02/2024 4:54 PM DIRECTOR COMPENSATION GLUCOSE - POINT OF CARE Routine 04/02/2024 4:41 PM DIRECTOR COMPENSATION GLUCOSE - POINT OF CARE Routine 04/02/2024 11:28 AM DIRECTOR COMPENSATION REJECTED SPUTUM GRAM STAIN Routine 04/02/2024 11:28 AM DIRECTOR COMPENSATION GLUCOSE - POINT OF CARE Routine 04/02/2024 6:19 AM DIRECTOR COMPENSATION PROCALCITONIN LEVEL AM Draw 04/02/2024 5 :54 AM DIRECTOR COMPENSATION BASIC METABOLIC PANEL (CALCIUM TOTAL) AM Draw 04/02/2024 5:54 AM DIRECTOR COMPENSATION PHOSPHORUS BLOOD AM Draw 04/02/2024 5:54 AM DIRECTOR COMPENSATION MAGNESIUM BLOOD Routine 04/02/2024 5:54 AM DIRECTOR COMPENSATION PT-INR Routine 04/02/2024 5:54 AM DIRECTOR COMPENSATION CBC W AUTO DIFFERENTIAL Routine 04/02/2024 5:54 AM DIRECTOR COMPENSATION XR CHEST 1VW PORTABLE Routine 04/02/2024 5:40 AM DIRECTOR COMPENSATION Acute respiratory failure with hypoxia (HCC) GLUCOSE - POINT OF CARE Routine 04/01/2024 8:12 PM DIRECTOR COMPENSATION GLUCOSE - POINT OF CARE Routine 04/01/2024 4:35 PM DIRECTOR COMPENSATION SARS-COV-2 (COVID-19) FLU A/B RSV PCR RAPID STAT 04/01/2024 1:24 PM DIRECTOR COMPENSATION GLUCOSE - POINT OF CARE Routine 04/01/2024 11:54 AM DIRECTOR COMPENSATION ECHO COMPLETE W CONTRAST Routine 04/01/2024 11:34 AM DIRECTOR COMPENSATION Sepsis with acute hypoxic respiratory failure, due to unspecified organism, unspecified whether septic shock present (HCC) CCL LEFT HEART CATH Routine 04/01/2024 9 :32 AM DIRECTOR COMPENSATION PTT Timed 04/01/2024 7:06 AM DIRECTOR COMPENSATION PT-INR Routine 04/01/2024 7:06 AM DIRECTOR COMPENSATION HEMOGLOBIN A1C Routine 04/01/2024 7:06 AM DIRECTOR COMPENSATION CBC W AUTO DIFFERENTIAL AM Draw 04/01/2024 7:06 AM DIRECTOR COMPENSATION GLUCOSE - POINT OF CARE Routine 04/01/2024 6:41 AM DIRECTOR COMPENSATION LIPID PROFILE AM Draw 04/01/2024 6:41 AM DIRECTOR COMPENSATION BASIC METABOLIC PANEL (CALCIUM TOTAL) AM Draw 04/01/2024 6:41 AM DIRECTOR COMPENSATION PTT Timed 03/31/2024 11:32 PM DIRECTOR COMPENSATION GLUCOSE - POINT OF CARE Routine 03/31/2024 4:50 PM DIRECTOR COMPENSATION PTT Routine 03/31/2024 4:39 PM DIRECTOR COMPENSATION PT-INR Routine 03/31/2024 4:39 PM DIRECTOR COMPENSATION TROPONIN-I HIGH SENSITIVE Routine 03/31/2024 3:[address] ANGIO CHEST PULM EMBOLISM Routine 03/31/2024 2:32 PM DIRECTOR COMPENSATION Sepsis with acute hypoxic respiratory failure, due to unspecified organism, unspecified whether septic shock present (HCC) LACTIC ACID BLOOD STAT 03/31/2024 1:3 6 PM DIRECTOR COMPENSATION TROPONIN-I HIGH SENSITIVE STAT 03/31/2024 12:46 PM DIRECTOR COMPENSATION GLUCOSE - POINT OF CARE Routine 03/31/2024 12:09 PM DIRECTOR COMPENSATION CULTURE BLOOD STAT 03/31/2024 10:28 AM DIRECTOR COMPENSATION ERYTHROCYTE SEDIMENTATION RATE Routine 03/31/2024 10:16 AM DIRECTOR COMPENSATION PROCALCITONIN LEVEL STAT 03/31/2024 1 0:16 AM DIRECTOR COMPENSATION B-TYPE NATRIURETIC PEPTIDE STAT 03/31/2024 10:16 AM DIRECTOR COMPENSATION CULTURE BLOOD STAT 03/31/2024 10:16 AM DIRECTOR COMPENSATION XR CHEST 1VW PORTABLE Routine 03/31/2024 9:52 AM DIRECTOR COMPENSATION Sepsis with acute hypoxic respiratory failure, due to unspecified organism, unspecified whether septic shock present (HCC) BLOOD GASES ARTERIAL RT Routine 03/31/2024 9:29 AM DIRECTOR COMPENSATION C-REACTIVE PROTEIN Routine 03/31/2024 9: 25 AM DIRECTOR COMPENSATION TSH REFLEX FREE T4 Routine 03/31/2024 9: 25 AM DIRECTOR COMPENSATION LACTIC ACID BLOOD STAT 03/31/2024 9:2 5 AM DIRECTOR COMPENSATION COMPREHENSIVE METABOLIC PANEL STAT 03/31/2024 9:25 AM DIRECTOR COMPENSATION CBC W AUTO DIFFERENTIAL STAT 03/31/2024 9:25 AM DIRECTOR COMPENSATION PT EVAL AND TREAT Routine 03/31/2024 9:2 3 AM DIRECTOR COMPENSATION OT EVAL AND TREAT Routine 03/31/2024 9:2 3 AM DIRECTOR COMPENSATION from Last 3 Months Results * CARDIAC RHYTHM STRIP ORDER (04/05/2024 1:14 AM DIRECTOR COMPENSATION) Narrative 04/05/2024 1:14 AM DIRECTOR COMPENSATION Ordered by an unspecified provider. Scanned Document CARDIAC SERVICES ORD ERABLES * (ABNORMAL) GLUCOSE - POINT OF CARE (04/03/2024 7:59 AM DIRECTOR COMPENSATION) Only the most recent of11 resultswithin the time period is included. Glucose WB/POC 102(H) 70 - 99 mg/dL 04/03/2024 8:10 AM DIRECTOR COMPENSATION [facility] Specimen Type Cap Fingerstick 2024 8:10 AM DIRECTOR COMPENSATION [facility] Blood BLOOD SPECIMEN / Unknown 04/03/2024 7:59 AM DIRECTOR COMPENSATION 04/03/2024 8:10 AM DIRECTOR COMPENSATION Elodia Varela MD LAB - POINT OF CARE ORDERABLES [facility] [address] [address] * (ABNORMAL) BASIC METABOLIC PANEL (CALCIUM TOTAL) (04/03/2024 7:31 AM DIRECTOR COMPENSATION) Only the most recent of3 resultswithin the time period is included. Pathologist [facility] Glucose 113(H) 70 - 99 mg/dL 04/03/2024 8:05 AM [facility] Sodium 139 136 - 145 mmol/L 04/03/2024 8:05 AM [facility] Potassium 4.3 3.5 - 5.1 mmol/L 04/03/2024 8:05 AM [facility] Chloride 107 98 - 107 mmol/L 04/03/2024 8:05 AM [facility] CO2 20(L) 22 - 29 mmol/L 04/03/2024 8:05 AM [facility] Calcium 9.9 8.4 - 10.4 mg/dL 04/03/2024 8:05 AM [facility] Anion Gap 12 6 - 16 mmol/L 04/03/2024 8:05 AM [facility] BUN 28(H) 7 - 26 mg/dL 04/03/2024 8:05 AM [facility] Creatinine 0.80 0.57 - 1.11 mg/dL 04/03/2024 8:05 AM [facility] eGFR by CKD-EPI 83(L) >=90 mL/min/1.7 3 m2 04/03/2024 8:05 AM [facility] Blood BLOOD SPECIMEN / Unknown Lab Venipuncture / Unknown 04/03/2024 7:31 AM DIRECTOR COMPENSATION 04/03/2024 7:37 AM DIRECTOR COMPENSATION Mariah Chavez PA-C LAB - CHEMISTRY ORDERABLES [facility] [address] [id number] * PHOSPHORUS BLOOD (04/03/2024 7:31 AM DIRECTOR COMPENSATION) Only the most recent of2 resultswithin the time period is included. Phosphorus 3.2 2.5 - 4.5 mg/dL 04/03/2024 8:05 AM [facility] Blood BLOOD SPECIMEN / Unknown Lab Venipuncture / Unknown 04/03/2024 7:31 AM DIRECTOR COMPENSATION 04/03/2024 7:37 AM DIRECTOR COMPENSATION Mariah Chavez PA-C LAB - CHEMISTRY ORDERABLES Performing Organization Address [facility] Co de Phone Number [facility] [address] [place] [address] * MAGNESIUM BLOOD (04/03/2024 7:31 AM DIRECTOR COMPENSATION) Only the most recent of2 resultswithin the time period is included. Magnesium 2.1 1.6 - 2.6 mg/dL 04/03/2024 8:05 AM [facility] Blood BLOOD SPECIMEN / Unknown Lab Venipuncture / Unknown 04/03/2024 7:31 AM DIRECTOR COMPENSATION 04/03/2024 7:37 AM DIRECTOR COMPENSATION Mariah Chavez PA-C LAB - CHEMISTRY ORDERABLES Performing Organization Address [facility] de Phone Number [facility] [address] [place] [phone] * PT-INR (04/03/2024 7:19 AM DIRECTOR COMPENSATION) Only the most recent of4 resultswithin the time period is included. PT 13.6 12.1 - 14.8 sec 04/03/2024 7:48 AM [facility] INR 1.0 0.9 - 1.1 04/03/2024 7:48 AM [facility] Blood BLOOD SPECIMEN / Unknown Lab Venipuncture / Unknown 04/03/2024 7:19 AM DIRECTOR COMPENSATION 04/03/2024 7:31 AM DIRECTOR COMPENSATION Narrative [facility] - 04/03/2024 7:48 AM DIRECTOR COMPENSATION Conventional Warfarin Anticoagulant Therapy: INR Reference Range: 2.0-3.0 Intensive Warfarin Anticoagulant Therapy: INR Reference Range: 2.5-3.5 Emanuel Simons MD LAB - COAGULA TION ORDERABLES [facility] [address] [address] * CBC W AUTO DIFFERENTIAL (04/03/2024 7:19 AM [facility]) Only the most recent of4 resultswithin the time period is included. WBC 7.5 4.0 - 10.7 x10E9/L 04/03/2024 8:02 AM [facility] RBC Count 4.92 3.90 - 5.20 x10E12/L 04/03/2024 8:02 AM [facility] Hemoglobin 14.7 11.9 - 15.8 g/dL 04/03/2024 8:02 AM [facility] Hematocrit 42.5 34.8 - 46.1 % 04/03/2024 8:02 AM [facility] MCV 86.4 80.0 - 98.0 fL 04/03/2024 8:02 AM [facility] MCH 29.9 26.7 - 33.6 pg 04/03/2024 8:02 AM [facility] MCHC 34.6 31.7 - 36.3 g/dL 04/03/2024 8:02 AM [facility] RDW-CV 13.7 11.3 - 14.8 % 04/03/2024 8:02 AM [facility] Platelet Count 209 150 - 420 x10E9/L 04/03/2024 8:02 AM [facility] MPV 11.2 7.8 - 11.4 fL 04/03/2024 8:02 AM [facility] Neutrophil % 64.5 41.0 - 74.0 % 04/03/2024 8:02 AM [facility] Lymphocyte % 26.1 17.0 - 47.0 % 04/03/2024 8:02 AM [facility] Monocyte % 6.6 3.0 - 11.0 % 04/03/2024 8:02 AM [facility] Eosinophil % 1.3 0.0 - 7.0 % 04/03/2024 8:02 AM [facility] Basophil % 1.2 0.0 - 1.6 % 04/03/2024 8:02 AM [facility] Immature Granulocytes % 0.3 0.0 - 1.0 % 04/03/2024 8:02 AM [facility] Neutrophil Absolute 4.82 1.60 - 7.50 x10E9/L 04/03/2024 8:02 AM [facility] Lymphocyte Absolute 1.95 1.00 - 4.40 x10E9/L 04/03/2024 8:02 AM [facility] Monocyte Absolute 0.49 0.15 - 1.00 x10E9/L 04/03/2024 8:02 AM [facility] Eosinophil Absolute 0.10 0.00 - 0.60 x10E9/L 04/03/2024 8:02 AM [facility] Basophil Absolute 0.09 0.00 - 0.13 x10E9/L 04/03/2024 8:02 AM [facility] Blood BLOOD SPECIMEN / Unknown Lab Venipuncture / Unknown 04/03/2024 7:19 AM DIRECTOR COMPENSATION 04/03/2024 7:31 AM DIRECTOR COMPENSATION Emanuel Simons MD LAB - HEMATOL OGY ORDERABLES [facility] [address] [place] [address] * REJECTED SPUTUM GRAM STAIN (04/02/2024 11:28 AM DIRECTOR COMPENSATION) Gram Stain < 25 per low power field Polymorphonuclear cells. Consistent with poor quality specimen. 04/02/2024 3:51 PM DIRECTOR COMPENSATION [facility] MICRO[facility] Gram Stain Recollect if clinically indicated. 04/02/2024 3:51 PM DIRECTOR COMPENSATION [facility]CRO[facility] Microbiology SPUTUM / Unknown Collection / Unknown 04/02/2024 11:28 AM DIRECTOR COMPENSATION 04/02/2024 11:34 AM DIRECTOR COMPENSATION Wei Greco MD LAB - MICROBIOLOGY O RDERABLES [facility] MICRO[facility]OLOG[facility] [address] [address] [phone] * PROCALCITONIN LEVEL (04/02/2024 5:54 AM DIRECTOR COMPENSATION) Only the most recent of2 resultswithin the time period is included. Procalcitonin 0.07 <0.10 ng/mL 04/02/2024 6:56 AM DIRECTOR COMPENSATION [facility] Blood BLOOD SPECIMEN / Unknown Lab Venipuncture / Unknown 04/02/2024 5:54 AM DIRECTOR COMPENSATION 04/02/2024 6:17 AM DIRECTOR COMPENSATION Narrative [facility] - 04/02/2024 6:56 AM DIRECTOR COMPENSATION The change in procalcitonin (PCT) concentration over [...] Change in Procalcitonin Calculator is available at www.DWHKVO-UIQ-Zmjzbebaxy.Firebase If clinical picture has not improved and PCT remains high, reevaluate and consider treatment failure or other causes. Rodríguez Benz MD LAB - CHEMISTRY ROSEANNA KEE [facility] Organization Address City/State/ZIP Co de Phone Number [facility] [address] [address] * XR Chest 1Vw Portable (04/02/2024 5:40 AM DIRECTOR COMPENSATION) Only the most recent of2 resultswithin the time period is included. Anatomical Region Laterality Modality Chest Radiographic Pattie ging 04/02/2024 7:58 AM DIRECTOR COMPENSATION Impressions 04/02/2024 8:08 AM DIRECTOR COMPENSATION IMPRESSION: Decreased bilateral airspace disease. Edited by Phoebe Rico on 04/02/2024 8:03 AM > Interpreting Provider: Rod Palma MD on 04/02/2024 8:08 AM Narrative 04/02/2024 8:08 AM DIRECTOR COMPENSATION XR CHEST 1VW PORTABLE INDICATION: J96.01: Acute [...] A/B RSV PCR RAPID (04/01/2024 1:24 PM DIRECTOR COMPENSATION) COVID-19 PCR Not detected Not detected 04/01/19 2:24 PM DIRECTOR COMPENSATION [facility] Influenza A PCR Not detected Not detected 04/01/2024 2:24 PM DIRECTOR COMPENSATION [facility] Influenza B PCR Not detected Not detected 04/01/2024 2:24 PM DIRECTOR COMPENSATION [facility] RSV PCR Not detected Not detected 04/01/2024 2:24 PM DIRECTOR COMPENSATION [facility] Microbiology SPECIMEN FROM NASOPHARYNGEAL STRUCTURE / Unknown Collection / Unknown 04/01/2024 1:24 PM DIRECTOR COMPENSATION 04/01/2024 1:39 PM DIRECTOR COMPENSATION Narrative [facility] - 04/01/2024 2:24 PM DIRECTOR COMPENSATION This nucleic acid amplification assay has been [...] Varela MD LAB - MICROBIOLOGY O RDERABLES [facility] [address] [address] * ECHO COMPLETE W CONTRAST (04/01/2024 11:34 AM DIRECTOR COMPENSATION) AV pk grad 8.2 mmHg SSM CV [...] Laterality Modality Ultrasound 04/01/2024 11:0 0 AM DIRECTOR COMPENSATION Narrative 04/01/2024 5:26 PM DIRECTOR COMPENSATION Summary * Normal left ventricular size, global/ [...] 11:00 AM Patient Status: I/P Study Site: [facility] Primary Location: [facility] EStudy Info Technical Quality: Technically Difficult Exam [...] Provider: Tejas Graves Attending Physician: Tejas Graves Patient Carrier: Gaby Morales Left Ventricle Normal left ventricular [...] 11:00 AM Patient Status: I/P Study Site: [facility] Primary Location: [facility] EStudy Info Technical Quality: Technically Difficult Exam [...] Staff Referring Physician: Tejas Graves Ordering Provider: eTjas Graves Attending Physician: Tejas Graves Patient Carrier: Gaby Andrew Left Ventricle Normal left ventricular [...] CCL LEFT HEART CATH (04/01/2024 9:32 AM DIRECTOR COMPENSATION) Anatomical Region Laterality Modality X-Ray Angiograph y Narrative 04/01/2024 9:46 AM DIRECTOR COMPENSATION Procedures Moderate sedation Left heart cardiac catheterization, selective coronary angiogram and left ventriculogram Indication-NSTEMI MOBILE LAB TECHNICIAN-Chris Conte MD After informed consent was obtained the patient was transferred to the cardiac catheterization laboratory where bilateral groin areas were draped and prepped in sterile fashion. 1% lidocaine was utilized to achieve local anesthesia in the right femoral area. Utilizing Doppler guided ultrasound we accessed the right femoral artery and placed a 6 [place] sheath without any problems. A 5 [place] FL4 diagnostic catheter was utilized to cannulate the left main coronary artery and several angiographic views were obtained in different orthogonal planes of the left main LAD and left circumflex arteries. The catheter was exchanged over the wire for a 5 [place] FR4 and that catheter was utilized to [...] arteriotomy site was closed utilizing a 6 [place] Angio-Seal device with good hemostasis and no complications Estimated blood loss 30 cc Complications none Sedation Versed 2 mg IV and fentanyl 50 mcg IV Procedure Details Estimated Blood Loss: 30 mL Chris Conte MD CV CARDIAC CATH CUPI D PROCS * HEMOGLOBIN A1C (04/01/2024 7:06 AM DIRECTOR COMPENSATION) Hemoglobin A1c 5.4 <5.7 % 04/01/2024 9:20 AM [facility] Estimated Average Glucose 108 mg/dL 04/01/2024 9:20 AM [facility] Blood BLOOD SPECIMEN / Unknown Lab Venipuncture / Unknown 04/01/2024 7:06 AM DIRECTOR COMPENSATION 04/01/2024 7:17 AM DIRECTOR COMPENSATION Narrative [facility] - 04/01/2024 9:20 AM DIRECTOR COMPENSATION HbA1c Interpretation: Normal: < 5.7% Pre-diabetes: 5.7-6.4% [...] Organization Address City/State/ZIP Co de Phone Number [facility] [address] [place] [address] * (ABNORMAL) PTT (04/01/2024 7:06 AM DIRECTOR COMPENSATION) Only the most recent of3 resultswithin the time period is included. PTT 71.8(H) 23.0 - 38.4 sec 04/01/2024 7:35 AM DIRECTOR COMPENSATION [facility] Blood BLOOD SPECIMEN / Unknown Lab Venipuncture / Unknown 04/01/2024 7:06 AM DIRECTOR COMPENSATION 04/01/2024 7:17 AM DIRECTOR COMPENSATION Narrative [facility] - 04/01/2024 7:35 AM DIRECTOR COMPENSATION Heparin Therapeutic Range for PTT: 69.0 - 110.0 seconds. Emanuel Simons MD LAB - COAGULA TION ORDERABLES Performing Organization Address City/[facility]/ZIP Co de Phone Number [facility] [address] [place] [address] * (ABNORMAL) LIPID PROFILE (04/01/2024 6:41 AM DIRECTOR COMPENSATION) Cholesterol 195 <200 mg/dL 04/01/2024 10:41 AM [facility] Triglycerides 272(H) <150 mg/dL 04/01/2024 10:41 AM [facility] HDL Cholesterol 35(L) >40 mg/dL 10:41 AM [facility] LDL Calculated 106 <130 mg/dL 04/01/2024 10:41 AM [facility] VLDL Calculated 54(H) <=30 mg/dL 10:41 AM [facility] Chol HDL Ratio 5.6(H) <4.5 04/01/2024 10:41 AM [facility] LDL/HDL Ratio 3.0 <5.0 04/01/2024 10:41 AM [facility] Blood BLOOD SPECIMEN / Unknown Lab Venipuncture / Unknown 04/01/2024 6:41 AM DIRECTOR COMPENSATION 04/01/2024 6:46 AM DIRECTOR COMPENSATION Tejas Graves MD LAB - CHEMISTRY ROSEANNA KEE [facility] [address] [place] [address] * (ABNORMAL) TROPONIN-I HIGH SENSITIVE (03/31/2024 3:11 PM DIRECTOR COMPENSATION) Only the most recent of2 resultswithin the time period is included. Troponin I High Sensitive 5,189(HH) <=14 ng/L 03/31/2024 4:00 PM DIRECTOR COMPENSATION [facility] Blood BLOOD SPECIMEN / Unknown Lab Venipuncture / Unknown 03/31/2024 3:11 PM DIRECTOR COMPENSATION 03/31/2024 3:19 PM DIRECTOR COMPENSATION Tejas Graves MD LAB - CHEMISTRY SHIVANIE CHILANGO [facility] Organization Address City/State/ZIP Co de Phone Number [facility] [address] [place] [address] * CT Angio Chest Pulm Embolism (03/31/2024 2:32 PM DIRECTOR COMPENSATION) Anatomical Region Laterality Modality Chest Computed Tomogra phy 03/31/2024 2:41 PM DIRECTOR COMPENSATION Impressions 03/31/2024 2:43 PM DIRECTOR COMPENSATION IMPRESSION: 1. No pulmonary embolism. 2. Findings most consistent with congestive heart failure with interstitial and alveolar pulmonary edema and small pleural effusion. Differential includes infection. > Interpreting Provider: Daniele Pino MD on 03/31/2024 2:43 PM Narrative 03/31/2024 2:43 PM DIRECTOR COMPENSATION PROCEDURE: CT ANGIO CHEST PULM EMBOLISM DATE/TIME [...] (ABNORMAL) LACTIC ACID BLOOD (03/31/2024 1:36 PM DIRECTOR COMPENSATION) Only the most recent of2 resultswithin the time period is included. Pathologist [facility] Lactic Acid 2.9(H) <=2 mmol/L 03/31/2024 2:07 PM DIRECTOR COMPENSATION [facility] Blood BLOOD SPECIMEN / Unknown Lab Venipuncture / Unknown 03/31/2024 1:36 PM DIRECTOR COMPENSATION 03/31/2024 1:52 PM DIRECTOR COMPENSATION Tejas Graves MD LAB - CHEMISTRY ROSEANNA KEE Performing Organization Address [facility]/ZIP Co de Phone Number [facility] [address] [place] [address] * CULTURE BLOOD (03/31/2024 10:28 AM DIRECTOR COMPENSATION) Only the most recent of2 resultswithin the time period is included. Pathologist [facility] Culture No growth day 5 ADE 04/05/2024 2:01 PM DIRECTOR COMPENSATION [facility] Blood PERIPHERAL BLOOD / Unknown Lab Venipuncture / Unknown 03/31/2024 10:28 AM DIRECTOR COMPENSATION 03/31/2024 10:32 AM DIRECTOR COMPENSATION Tejas Graves MD LAB - MICROBIOLOGY O RDERABLES Performing Organization Address [facility] Co de Phone Number [facility] MICROBIOLOGY [address] [place] [address] [phone] * ERYTHROCYTE SEDIMENTATION RATE (03/31/2024 10:16 AM DIRECTOR COMPENSATION) Pathologist [facility] Erythrocyte Sedimentation Rate Automated 14 0 - 30 MM/HR 03/31/2024 10:36 AM DIRECTOR COMPENSATION [facility] Blood BLOOD SPECIMEN / Unknown Lab Venipuncture / Unknown 03/31/2024 10:16 AM DIRECTOR COMPENSATION 03/31/2024 10:32 AM DIRECTOR COMPENSATION Tejas Graves MD LAB - HEMATOLOGY ORD ERABLES Performing Organization Address [facility] Co de Phone Number [facility] [address], [place] [id number] * (ABNORMAL) B-TYPE NATRIURETIC PEPTIDE (03/31/2024 10:16 AM DIRECTOR COMPENSATION) Pathologist [facility] BNP 516(H) <=100 pg/mL 03/31/2024 10:55 AM [facility] Blood BLOOD SPECIMEN / Unknown Lab Venipuncture / Unknown 03/31/2024 10:16 AM DIRECTOR COMPENSATION 03/31/2024 10:32 AM DIRECTOR COMPENSATION [facility] - 03/31/2024 10:55 AM DIRECTOR COMPENSATION A cutoff of 100 pg/mL has been [...] candidates for or are undergoing renal dialysis. Tjeas Graves MD LAB - CHEMISTRY ROSEANNA KEE [facility] Organization Address City/State/ZIP Co de Phone Number [facility] [address] [facility] [place] [address] * BLOOD GASES ARTERIAL (03/31/2024 9:29 AM DIRECTOR COMPENSATION) pH Arterial 7.44 7.35 - 7.45 pH 03/31/2024 9:33 AM DIRECTOR COMPENSATION [facility]P [facility]ER[facility] pO2 Arterial 84 80 - 100 mmHg 03/31/2024 9:33 AM DIRECTOR COMPENSATION [facility] RESP [facility]ER[facility] pCO2 Arterial 36 35 - 45 mmHg 03/31/2024 9:33 AM DIRECTOR COMPENSATION [facility] HCO3 Arterial 24.5 22.0 - 26.0 mmol/L 03/31/2024 9:33 AM DIRECTOR COMPENSATION [facility] RESP [facility]ERAP[facility] BE Arterial 0.6 -2.0 - 2.0 mmol/L 03/31/2024 9:33 AM DIRECTOR COMPENSATION [facility] O2 Saturation Arterial 99 90 - 100 % 03/31/2024 9:33 AM DIRECTOR COMPENSATION [facility] Temperature (C) 37.0 C 9:33 AM DIRECTOR COMPENSATION [facility] Galen's Test Positive 03/31/2024 9:33 AM DIRECTOR COMPENSATION [facility] Mode Bipap 03/31/2024 9:33 AM DIRECTOR COMPENSATION [facility] FI O2 40.0 % 03/31/2024 9:33 AM DIRECTOR COMPENSATION [facility] BIPAP Insp Pressure (cmH2O) 10 03/31/2024 9:33 AM DIRECTOR COMPENSATION [facility] BIPAP Exp Pressure (cmH2O) 5 03/31/2024 9:33 AM DIRECTOR COMPENSATION [facility] P/F Ratio 210 03/31/2024 9:33 AM DIRECTOR COMPENSATION [facility] Blood ARTERIAL BLOOD SPECIMEN / Unknown 03/31/2024 9:29 AM DIRECTOR COMPENSATION 03/31/2024 9:29 AM DIRECTOR COMPENSATION Tejas Graves MD LAB - BLOOD GASES OR DERABLES Performing Organization Address City/[facility]/ZIP Co de Phone Number [facility] [address] [id number], [facility] * TSH REFLEX FREE T4 (03/31/2024 9:25 AM DIRECTOR COMPENSATION) TSH 1.568 0.350 - 4.940 uIU/mL 03/31/2024 10:20 AM DIRECTOR COMPENSATION [facility] Blood BLOOD SPECIMEN / Unknown Lab Venipuncture / Unknown 03/31/2024 9:25 AM DIRECTOR COMPENSATION 03/31/2024 9:30 AM DIRECTOR COMPENSATION Tejas Graves MD LAB - CHEMISTRY ROSEANNA KEE Performing Organization Address [facility] Co de Phone Number [facility] [address] [address] * (ABNORMAL) C-REACTIVE PROTEIN (03/31/2024 9:25 AM DIRECTOR COMPENSATION) C-Reactive Protein 1.35(H) <=0.50 mg/dL 03/31/2024 9:58 AM DIRECTOR COMPENSATION [facility] Blood BLOOD SPECIMEN / Unknown Lab Venipuncture / Unknown 03/31/2024 9:25 AM DIRECTOR COMPENSATION 03/31/2024 9:30 AM DIRECTOR COMPENSATION Tejas Graves MD LAB - CHEMISTRY ORDPaul KEE Performing Organization Address City/[facility]/ZIP Co de Phone Number [facility] [address] [phone] * (ABNORMAL) COMPREHENSIVE METABOLIC PANEL (03/31/2024 9:25 AM [facility]) Glucose 170(H) 70 - 99 mg/dL 03/31/2024 9:47 AM [facility] Sodium 142 136 - 145 mmol/L 03/31/2024 9:47 AM [facility] Potassium 4.0 3.5 - 5.1 mmol/L 03/31/2024 9:47 AM [facility] Chloride 109(H) 98 - 107 mmol/L 03/31/2024 9:47 AM [facility] CO2 21(L) 22 - 29 mmol/L 03/31/2024 9:47 AM [facility] Calcium 9.2 8.4 - 10.4 mg/dL 03/31/2024 9:47 AM [facility] Anion Gap 12 6 - 16 mmol/L 03/31/2024 9:47 AM [facility] BUN 20 7 - 26 mg/dL 03/31/2024 9:47 AM [facility] Creatinine 0.80 0.57 - 1.11 mg/dL 03/31/2024 9:47 AM [facility] Alkaline Phosphatase 120 40 - 150 U/L 03/31/2024 9:47 AM [facility] ALT 21 0 - 55 U/L 03/31/2024 9:47 AM [facility] AST 33 5 - 34 U/L 03/31/2024 9:47 AM [facility] Protein Total 7.0 6.4 - 8.3 gm/dL 03/31/2024 9:47 AM [facility] Albumin 3.6 3.4 - 5.0 gm/dL 03/31/2024 9:47 AM [facility] Bilirubin Total 0.4 0.2 - 1.2 mg/dL 03/31/2024 9:47 AM [facility] eGFR by CKD-EPI 83(L) >=90 mL/min/1.7 3 m2 03/31/2024 9:47 AM [facility] Blood BLOOD SPECIMEN / Unknown Lab Venipuncture / Unknown 03/31/2024 9:25 AM [facility] 03/31/2024 9:30 AM DIRECTOR COMPENSATION Tejas Graves MD LAB - CHEMISTRY ROSEANNA KEE [facility] [address] [address] from Last 3 Months Advance Directives * Full Code (Latest Code Status on File) Date Activated Date Inactivated Comments 04/01/2024 9:41 AM 04/03/2024 12:47 PM * Full Code Date Activated Date Inactivated Comments 03/31/2024 9:24 AM 04/01/2024 9:41 AM Care Teams Bobbin Doffer Relationship Specialty Start Date End Date Sara Irene, PLATE [employer]IST [address] [place] [address] PCP - General Nurse Practitioner Family 08/29/22
--- OUTSIDE RECORDS SUMMARY | 2024-04-13 05:49 | XMS_ITS | Patient Health Summary ---
Author Organization [facility] Address [address] [place] [address] Care Team Providers Care Community Living Instructor Name Role Phone Sara Irene APRN-POLICE OFFICER BOOKING Primary Care Provid er Note from [facility],non-owned Affiliates and Associated Physician Practices is amultiple site organization consisting of ambulatory clinics and hospital sitesin [place], [place], [place] and [place]. This disclosure is being madepursuant to the Care Everywhere program and may not contain all information available regarding this patient. Last updated 17.[facility] Allergies * Codeine(Nausea and/or Vomiting) -Low Criticality [...] propionate (Flonase) 50 MCG/ACT nasal spray(Started 07/06/2022) [place] 1 (one) spray into each nostril once [...] and heating? Not hard at all 04/01/2024 [facility] - Occupational [...] any time in the past 12 m [facility], were you homeless or living in a halfway (including now)? No 03/31/2024 Sex and Gender Information Value Date Recorded Sex Assigned at Not on file Gender Identity Not on file Sexual Orientation Not on file Last Filed Vital Signs Vital Sign Reading Time Taken Comments Blood Pressure 142/99 04/03/2024 7:59 AM BREAKER UP MACHINE OPERATOR Pulse 89 04/03/2024 9:18 AM BREAKER UP MACHINE OPERATOR Temperature 36.6 C (97.9 F) 04/03/2024 7:59 AM BREAKER UP MACHINE OPERATOR Respiratory Rate 18 04/03/2024 9:18 AM BREAKER UP MACHINE OPERATOR Oxygen Saturation 99% 04/03/2024 9:18 AM BREAKER UP MACHINE OPERATOR Inhaled Oxygen Concentration 40% 03/31/2024 4 :59 PM BREAKER UP MACHINE OPERATOR Weight 73.5 kg (162 lb) 04/02/2024 4:11 AM BREAKER UP MACHINE OPERATOR Height 157.5 cm (5' 2 ) 03/31/2024 10:03 AM BREAKER UP MACHINE OPERATOR Body Mass Index 29.63 03/31/2024 10:03 AM BREAKER UP MACHINE OPERATOR Procedures * CARDIAC RHYTHM STRIP ORDER(Performed 04/05/2024) [...] * OT EVAL AND TREAT(Performed 03/31/2024) * WV LARYNGOSCOPY,FLEX FIBER,DIAGNOSTIC(Performed 12/15/2023) Performed for Hoarseness of voice * WV LARYNGOSCOPY,FLEX FIBER,DIAGNOSTIC(Performed 06/09/2023) Performed for Hoarseness of voice * WV LARYNGOSCOPY,FLEX FIBER,DIAGNOSTIC(Performed 01/06/2023) Performed for Hoarseness of voice * PATHOLOGY TISSUE(Performed 11/21/2022) Performed for Vocal cord dysplasia * ENDOTRACHEAL TUBE NOTE(Performed 11/21/2022) * ENDOTRACHEAL TUBE NOTE(Performed 11/21/2022) * WV LARYNGOSCOPY,DIRCT,OP SCOP,EXC TUMR(Performed 11/21/2022) Performed for Vocal cord dysplasia * WV LARYNGOSCOPY,FLEX FIBER,DIAGNOSTIC(Performed 10/21/2022) Performed for Vocal cord dysplasia * ENDOTRACHEAL TUBE NOTE(Performed 09/21/2022) * PATHOLOGY TISSUE(Performed 09/21/2022) Performed for Leukoplakia of vocal cords * WV LARYNGOSCOPY,DIRCT,OP SCOP,EXC TUMR(Performed 09/21/2022) Performed for Leukoplakia of vocal cords * WV LARYNGOSCOPY,FLEX FIBER,DIAGNOSTIC(Performed 09/02/2022) Performed for Hoarseness of voice, Leukoplakia of vocal cords Results * CARDIAC RHYTHM STRIP ORDER (04/05/2024 1:14 AM BREAKER UP MACHINE OPERATOR) Narrative 04/05/2024 1:14 AM BREAKER UP MACHINE OPERATOR Ordered by an unspecified provider. Scanned Document CARDIAC SERVICES ORD ERABLES * (ABNORMAL) GLUCOSE - POINT OF CARE (04/03/2024 7:59 AM BREAKER UP MACHINE OPERATOR) Only the most recent of11 resultswithin the time period is included. Glucose WB/POC 102(H) 70 - 99 mg/dL 04/03/2024 8:10 AM BREAKER UP MACHINE OPERATOR [facility] Specimen Type Cap Fingerstick 2024 8:10 AM BREAKER UP MACHINE OPERATOR [facility] Blood BLOOD SPECIMEN / Unknown 04/03/2024 7:59 AM BREAKER UP MACHINE OPERATOR 04/03/2024 8:10 AM BREAKER UP MACHINE OPERATOR Elodia Varela MD LAB - POINT OF CARE ORDERABLES [facility] [address] [id number] * (ABNORMAL) BASIC METABOLIC PANEL (CALCIUM TOTAL) (04/03/2024 7:31 AM BREAKER UP MACHINE OPERATOR) Only the most recent of3 resultswithin the time period is included. [facility] Glucose 113(H) 70 - 99 mg/dL 04/03/2024 8:05 AM [facility] Sodium 139 136 - 145 mmol/L 04/03/2024 8:05 AM [facility] Potassium 4.3 3.5 - 5.1 mmol/L 04/03/2024 8:05 AM [facility] Chloride 107 98 - 107 mmol/L 04/03/2024 8:05 AM [facility] CO2 20(L) 22 - 29 mmol/L 04/03/2024 8:05 AM [facility] Calcium 9.9 8.4 - 10.4 mg/dL 04/03/2024 8:05 AM [facility] Anion Gap 12 6 - 16 mmol/L 04/03/2024 8:05 AM [facility] BUN 28(H) 7 - 26 mg/dL 04/03/2024 8:05 AM [facility] Creatinine 0.80 0.57 - 1.11 mg/dL 04/03/2024 8:05 AM [facility] eGFR by CKD-EPI 83(L) >=90 mL/min/1.7 3 m2 04/03/2024 8:05 AM [facility] Blood BLOOD SPECIMEN / Unknown Lab Venipuncture / Unknown 04/03/2024 7:31 AM BREAKER UP MACHINE OPERATOR 04/03/2024 7:37 AM BREAKER UP MACHINE OPERATOR Mariah Chavez PA-C LAB - CHEMISTRY ORDERABLES [facility] [address] [address] * PHOSPHORUS BLOOD (04/03/2024 7:31 AM BREAKER UP MACHINE OPERATOR) Only the most recent of2 resultswithin the time period is included. Phosphorus 3.2 2.5 - 4.5 mg/dL 04/03/2024 8:05 AM [facility] Blood BLOOD SPECIMEN / Unknown Lab Venipuncture / Unknown 04/03/2024 7:31 AM BREAKER UP MACHINE OPERATOR 04/03/2024 7:37 AM BREAKER UP MACHINE OPERATOR Mariah Chavez PA-C LAB - CHEMISTRY ORDERABLES [facility] [address] [place] [id number] * MAGNESIUM BLOOD (04/03/2024 7:31 AM BREAKER UP MACHINE OPERATOR) Only the most recent of2 resultswithin the time period is included. Magnesium 2.1 1.6 - 2.6 mg/dL 04/03/2024 8:05 AM [facility] Blood BLOOD SPECIMEN / Unknown Lab Venipuncture / Unknown 04/03/2024 7:31 AM BREAKER UP MACHINE OPERATOR 04/03/2024 7:37 AM [facility] Mariah Chavez PA-C LAB - CHEMISTRY ORDERABLES Performing Organization Address City/[facility]/ZIP Co de Phone Number [facility] [address] [place] [address] * PT-INR (04/03/2024 7:19 AM BREAKER UP MACHINE OPERATOR) Only the most recent of4 resultswithin the time period is included. PT 13.6 12.1 - 14.8 sec 04/03/2024 7:48 AM [facility] INR 1.0 0.9 - 1.1 04/03/2024 7:48 AM [facility] Blood BLOOD SPECIMEN / Unknown Lab Venipuncture / Unknown 04/03/2024 7:19 AM BREAKER UP MACHINE OPERATOR 04/03/2024 7:31 AM BREAKER UP MACHINE OPERATOR Narrative [facility] - 04/03/2024 7:48 AM [facility] Conventional Warfarin Anticoagulant Therapy: INR Reference Range: 2.0-3.0 Intensive Warfarin Anticoagulant Therapy: INR Reference Range: 2.5-3.5 Emanuel Simons MD LAB - COAGULA TION ORDERABLES [facility] [address] [address] * CBC W AUTO DIFFERENTIAL (04/03/2024 7:19 AM [facility]) Only the most recent of4 resultswithin the time period is included. [facility] WBC 7.5 4.0 - 10.7 x10E9/L 04/03/2024 8:02 AM [facility] RBC Count 4.92 3.90 - 5.20 x10E12/L 04/03/2024 8:02 AM [facility] Hemoglobin 14.7 11.9 - 15.8 g/dL 04/03/2024 8:02 AM [facility] Hematocrit 42.5 34.8 - 46.1 % 04/03/2024 8:02 AM [facility] MCV 86.4 80.0 - 98.0 fL 04/03/2024 8:02 AM [facility] MCH 29.9 26.7 - 33.6 pg 04/03/2024 8:02 AM [facility] MCHC 34.6 31.7 - 36.3 g/dL 04/03/2024 8:02 AM [facility] RDW-CV 13.7 11.3 - 14.8 % 04/03/2024 8:02 AM [facility] Platelet Count 209 150 - 420 x10E9/L 04/03/2024 8:02 AM [facility] MPV 11.2 7.8 - 11.4 fL 04/03/2024 8:02 AM [facility] Neutrophil % 64.5 41.0 - 74.0 % 04/03/2024 8:02 AM [facility] Lymphocyte % 26.1 17.0 - 47.0 % 04/03/2024 8:02 AM [facility] Monocyte % 6.6 3.0 - 11.0 % 04/03/2024 8:02 AM [facility] Eosinophil % 1.3 0.0 - 7.0 % 04/03/2024 8:02 AM [facility] Basophil % 1.2 0.0 - 1.6 % 04/03/2024 8:02 AM [facility] Immature Granulocytes % 0.3 0.0 - 1.0 % 04/03/2024 8:02 AM [facility] Neutrophil Absolute 4.82 1.60 - 7.50 x10E9/L 04/03/2024 8:02 AM [facility] Lymphocyte Absolute 1.95 1.00 - 4.40 x10E9/L 04/03/2024 8:02 AM [facility] Monocyte Absolute 0.49 0.15 - 1.00 x10E9/L 04/03/2024 8:02 AM [facility] Eosinophil Absolute 0.10 0.00 - 0.60 x10E9/L 04/03/2024 8:02 AM [facility] Basophil Absolute 0.09 0.00 - 0.13 x10E9/L 04/03/2024 8:02 AM [facility] Blood BLOOD SPECIMEN / Unknown Lab Venipuncture / Unknown 04/03/2024 7:19 AM BREAKER UP MACHINE OPERATOR 04/03/2024 7:31 AM BREAKER UP MACHINE OPERATOR Emanuel Simons MD LAB - HEMATOL OGY ORDERABLES [facility] [address] [place] [id number] * REJECTED SPUTUM GRAM STAIN (04/02/2024 11:28 AM BREAKER UP MACHINE OPERATOR) Gram Stain < 25 per low power field Polymorphonuclear cells. Consistent with poor quality specimen. 04/02/2024 3:51 PM [facility] MICROBIOLOGY Gram Stain Recollect if clinically indicated. 04/02/2024 3:51 PM [facility] MICROBIOLOGY Microbiology SPUTUM / Unknown Collection / Unknown 04/02/2024 11:28 AM BREAKER UP MACHINE OPERATOR 04/02/2024 11:34 AM BREAKER UP MACHINE OPERATOR Wei Greco MD LAB - MICROBIOLOGY O [facility] MICRO[facility] [address] [place] [address], [facility] [phone] * PROCALCITONIN LEVEL (04/02/2024 5:54 AM BREAKER UP MACHINE OPERATOR) Only the most recent of2 resultswithin the time period is included. Procalcitonin 0.07 <0.10 ng/mL 04/02/2024 6:56 AM BREAKER UP MACHINE OPERATOR [facility] Blood BLOOD SPECIMEN / Unknown Lab Venipuncture / Unknown 04/02/2024 5:54 AM BREAKER UP MACHINE OPERATOR 04/02/2024 6:17 AM BREAKER UP MACHINE OPERATOR Narrative [facility] - 04/02/2024 6:56 AM BREAKER UP MACHINE OPERATOR The change in procalcitonin (PCT) concentration over [...] Change in Procalcitonin Calculator is available at [email or web address] If clinical picture has not improved and PCT remains high, reevaluate and consider treatment failure or other causes. Rodríguez Benz MD LAB - CHEMISTRY ROSEANNA KEE [facility] [address] [address] * XR Chest 1Vw Portable (04/02/2024 5:40 AM BREAKER UP MACHINE OPERATOR) Only the most recent of2 resultswithin the time period is included. Anatomical Region Laterality Modality Chest Radiographic Pattie ging 04/02/2024 7:58 AM BREAKER UP MACHINE OPERATOR Impressions 04/02/2024 8:08 AM BREAKER UP MACHINE OPERATOR IMPRESSION: Decreased bilateral airspace disease. Edited by Phoebe Rico on 04/02/2024 8:03 AM > Interpreting Provider: Rod Palma MD on 04/02/2024 8:08 AM Narrative 04/02/2024 8:08 AM BREAKER UP MACHINE OPERATOR XR CHEST 1VW PORTABLE INDICATION: J96.01: Acute [...] A/B RSV PCR RAPID (04/01/2024 1:24 PM BREAKER UP MACHINE OPERATOR) COVID-19 PCR Not detected Not detected 04/01/19 2:24 PM BREAKER UP MACHINE OPERATOR [facility] Influenza A PCR Not detected Not detected 04/01/2024 2:24 PM BREAKER UP MACHINE OPERATOR [facility] Influenza B PCR Not detected Not detected 04/01/2024 2:24 PM BREAKER UP MACHINE OPERATOR [facility] RSV PCR Not detected Not detected 04/01/2024 2:24 PM BREAKER UP MACHINE OPERATOR [facility] Microbiology SPECIMEN FROM NASOPHARYNGEAL STRUCTURE / Unknown Collection / Unknown 04/01/2024 1:24 PM BREAKER UP MACHINE OPERATOR 04/01/2024 1:39 PM BREAKER UP MACHINE OPERATOR Narrative [facility] - 04/01/2024 2:24 PM BREAKER UP MACHINE OPERATOR This nucleic acid amplification assay has been [...] Varela MD LAB - MICROBIOLOGY O RDERABLES [facility] [address] [address] * ECHO COMPLETE W CONTRAST (04/01/2024 11:34 AM BREAKER UP MACHINE OPERATOR) AV pk grad 8.2 mmHg SSM CV [...] Laterality Modality Ultrasound 04/01/2024 11:0 0 AM BREAKER UP MACHINE OPERATOR Narrative 04/01/2024 5:26 PM BREAKER UP MACHINE OPERATOR Summary * Normal left ventricular size, global/ [...] pericardial effusion noted. Patient Info Name: Arlet Blaek Age: 63 years : 1960 Gender: Female Ht: 62 in Wt: 164 lb BSA: 1.83 m2 BP: 108 / 62 mmHg Exam Date: 04/01/2024 11:00 AM Patient Status: I/P Study Site: [facility] Primary Location: [facility] EStudy Info Technical Quality: Technically Difficult [...] Provider: Tejas Graves Attending Physician: Tejas Graves Clerk Of Scales: Gaby Morales Left Ventricle Normal left ventricular [...] 11:00 AM Patient Status: I/P Study Site: [facility] Primary Location: [facility] EStudy Info Technical Quality: Technically Difficult [...] Provider: Tejas Graves Attending Physician: Tejas Graves Clerk Of Scales: Gaby Morales Left Ventricle Normal left ventricular [...] CCL LEFT HEART CATH (04/01/2024 9:32 AM BREAKER UP MACHINE OPERATOR) Anatomical Region Laterality Modality X-Ray Angiograph y Narrative 04/01/2024 9:46 AM BREAKER UP MACHINE OPERATOR Procedures Moderate sedation Left heart cardiac catheterization, selective coronary angiogram and left ventriculogram Indication-NSTEMI RADIO STATION MANAGER-Chris Conte MD After informed consent was obtained the patient was transferred to the cardiac catheterization laboratory where bilateral groin areas were draped and prepped in sterile fashion. 1% lidocaine was utilized to achieve local anesthesia in the right femoral area. Utilizing Doppler guided ultrasound we accessed the right femoral artery and placed a 6 Albanian sheath without any problems. A 5 Albanian FL4 diagnostic catheter was utilized to cannulate the left main coronary artery and several angiographic views were obtained in different orthogonal planes of the left main LAD and left circumflex arteries. The catheter was exchanged over the wire for a 5 Albanian FR4 and that catheter was utilized to [...] arteriotomy site was closed utilizing a 6 Albanian Angio-Seal device with good hemostasis and no complications Estimated blood loss 30 cc Complications none Sedation Versed 2 mg IV and fentanyl 50 mcg IV Procedure Details Estimated Blood Loss: 30 mL Chris Conte MD CV CARDIAC CATH CUPI D PROCS * HEMOGLOBIN A1C (04/01/2024 7:06 AM BREAKER UP MACHINE OPERATOR) Hemoglobin A1c 5.4 <5.7 % 04/01/2024 9:20 AM [facility] Estimated Average Glucose 108 mg/dL 04/01/2024 9:20 AM [facility] Blood BLOOD SPECIMEN / Unknown Lab Venipuncture / Unknown 04/01/2024 7:06 AM BREAKER UP MACHINE OPERATOR 04/01/2024 7:17 AM [facility] Narrative [facility] - 04/01/2024 9:20 AM [facility] HbA1c Interpretation: Normal: < 5.7% Pre-diabetes: 5.7-6.4% [...] Graves MD LAB - CHEMISTRY ROSEANNA KEE [facility] [address] [place] [id number] * (ABNORMAL) PTT (04/01/2024 7:06 AM BREAKER UP MACHINE OPERATOR) Only the most recent of3 resultswithin the time period is included. PTT 71.8(H) 23.0 - 38.4 sec 04/01/2024 7:35 AM BREAKER UP MACHINE OPERATOR [facility] Blood BLOOD SPECIMEN / Unknown Lab Venipuncture / Unknown 04/01/2024 7:06 AM BREAKER UP MACHINE OPERATOR 04/01/2024 7:17 AM BREAKER UP MACHINE OPERATOR Narrative [facility] - 04/01/2024 7:35 AM BREAKER UP MACHINE OPERATOR Heparin Therapeutic Range for PTT: 69.0 - 110.0 seconds. Emanuel Simons MD LAB - COAGULA TION ORDERABLES Performing Organization Address [facility] Co de Phone Number [facility] [address] [place] [address] * (ABNORMAL) LIPID PROFILE (04/01/2024 6:41 AM BREAKER UP MACHINE OPERATOR) Cholesterol 195 <200 mg/dL 04/01/2024 10:41 AM [facility] Triglycerides 272(H) <150 mg/dL 04/01/2024 10:41 AM [facility] HDL Cholesterol 35(L) >40 mg/dL 5 10:41 AM [facility] LDL Calculated 106 <130 mg/dL 04/01/2024 10:41 AM [facility] VLDL Calculated 54(H) <=30 mg/dL 10:41 AM [facility] Chol HDL Ratio 5.6(H) <4.5 04/01/2024 10:41 AM [facility] LDL/HDL Ratio 3.0 <5.0 04/01/2024 10:41 AM [facility] Blood BLOOD SPECIMEN / Unknown Lab Venipuncture / Unknown 04/01/2024 6:41 AM BREAKER UP MACHINE OPERATOR 04/01/2024 6:46 AM BREAKER UP MACHINE OPERATOR Tejas Graves MD LAB - CHEMISTRY ROSEANNA KEE [facility] [address] [place] [address] * (ABNORMAL) TROPONIN-I HIGH SENSITIVE (03/31/2024 3:11 PM BREAKER UP MACHINE OPERATOR) Only the most recent of2 resultswithin the time period is included. Troponin I High Sensitive 5,189(HH) <=14 ng/L 03/31/2024 4:00 PM BREAKER UP MACHINE OPERATOR [facility] Blood BLOOD SPECIMEN / Unknown Lab Venipuncture / Unknown 03/31/2024 3:11 PM BREAKER UP MACHINE OPERATOR 03/31/2024 3:19 PM BREAKER UP MACHINE OPERATOR Tejas Graves MD LAB - CHEMISTRY ROSEANNA KEE Performing Organization Address City/[facility]/ZIP Co de Phone Number [facility] [address] [place] [address] * CT Angio Chest Pulm Embolism (03/31/2024 2:32 PM BREAKER UP MACHINE OPERATOR) Anatomical Region Laterality Modality Chest Computed Tomogra phy 03/31/2024 2:41 PM BREAKER UP MACHINE OPERATOR Impressions 03/31/2024 2:43 PM BREAKER UP MACHINE OPERATOR IMPRESSION: 1. No pulmonary embolism. 2. Findings most consistent with congestive heart failure with interstitial and alveolar pulmonary edema and small pleural effusion. Differential includes infection. > Interpreting Provider: Daniele Pino MD on 03/31/2024 2:43 PM Narrative 03/31/2024 2:43 PM BREAKER UP MACHINE OPERATOR PROCEDURE: CT ANGIO CHEST PULM EMBOLISM DATE/TIME [...] (ABNORMAL) LACTIC ACID BLOOD (03/31/2024 1:36 PM BREAKER UP MACHINE OPERATOR) Only the most recent of2 resultswithin the time period is included. Lactic Acid 2.9(H) <=2 mmol/L 03/31/2024 2:07 PM BREAKER UP MACHINE OPERATOR [facility] Blood BLOOD SPECIMEN / Unknown Lab Venipuncture / Unknown 03/31/2024 1:36 PM BREAKER UP MACHINE OPERATOR 03/31/2024 1:52 PM BREAKER UP MACHINE OPERATOR Tejas Graves MD LAB - CHEMISTRY ORDE RABLES Performing Organization Address City/[facility] Co de Phone Number [facility] [address] [place] [phone] * CULTURE BLOOD (03/31/2024 10:28 AM BREAKER UP MACHINE OPERATOR) Only the most recent of2 resultswithin the time period is included. Pathologist [facility] Culture No growth day 5 ADE 04/05/2024 2:01 PM BREAKER UP MACHINE OPERATOR [facility] MICROBIOLOGY Blood PERIPHERAL BLOOD / Unknown Lab Venipuncture / Unknown 03/31/2024 10:28 AM BREAKER UP MACHINE OPERATOR 03/31/2024 10:32 AM BREAKER UP MACHINE OPERATOR Tejas Graves MD LAB - MICROBIOLOGY O RDERABLES Performing Organization Address [facility] Co de Phone Number [facility]CRO[facility] [address] [place] [address], [facility] [phone] * ERYTHROCYTE SEDIMENTATION RATE (03/31/2024 10:16 AM BREAKER UP MACHINE OPERATOR) Erythrocyte Sedimentation Rate Automated 14 0 - 30 MM/HR 03/31/2024 10:36 AM BREAKER UP MACHINE OPERATOR [facility] Blood BLOOD SPECIMEN / Unknown Lab Venipuncture / Unknown 03/31/2024 10:16 AM BREAKER UP MACHINE OPERATOR 03/31/2024 10:32 AM BREAKER UP MACHINE OPERATOR Tejas Graves MD LAB - HEMATOLOGY ORD ERABLES Performing Organization Address City/[facility] Co de Phone Number [facility] [address] [place] [phone] * (ABNORMAL) B-TYPE NATRIURETIC PEPTIDE (03/31/2024 10:16 AM [facility]) BNP 516(H) <=100 pg/mL 03/31/2024 10:55 AM [facility] Blood BLOOD SPECIMEN / Unknown Lab Venipuncture / Unknown 03/31/2024 10:16 AM BREAKER UP MACHINE OPERATOR 03/31/2024 10:32 AM BREAKER UP MACHINE OPERATOR Narrative [facility] - 03/31/2024 10:55 AM BREAKER UP MACHINE OPERATOR A cutoff of 100 pg/mL has been [...] Graves MD LAB - CHEMISTRY ROSEANNA KEE [facility] Organization Address City/State/ZIP Co de Phone Number [facility] [address] [facility] [place] [address] * BLOOD GASES ARTERIAL (03/31/2024 9:29 AM BREAKER UP MACHINE OPERATOR) Pathologist [facility] pH Arterial 7.44 7.35 - 7.45 pH 03/31/2024 9:33 AM BREAKER UP MACHINE OPERATOR [facility]ERAP[facility] pO2 Arterial 84 80 - 100 mmHg 03/31/2024 9:33 AM BREAKER UP MACHINE OPERATOR [facility] RESP THERAP[facility] pCO2 Arterial 36 35 - 45 mmHg 03/31/2024 9:33 AM BREAKER UP MACHINE OPERATOR [facility]ER[facility] HCO3 Arterial 24.5 22.0 - 26.0 mmol/L 03/31/2024 9:33 AM BREAKER UP MACHINE OPERATOR [facility] RESP THERAP[facility] BE Arterial 0.6 -2.0 - 2.0 mmol/L 03/31/2024 9:33 AM BREAKER UP MACHINE OPERATOR [facility] RESP THERAPY O2 Saturation Arterial 99 90 - 100 % 03/31/2024 9:33 AM BREAKER UP MACHINE OPERATOR [facility]ER[facility] Temperature (C) 37.0 C 9:33 AM BREAKER UP MACHINE OPERATOR [facility] RESP THERAPY Galen's Test Positive 03/31/2024 9:33 AM BREAKER UP MACHINE OPERATOR [facility] RESP THERAPY Mode Bipap 03/31/2024 9:33 AM BREAKER UP MACHINE OPERATOR [facility] RES[facility] THERAP[facility] FI O2 40.0 % 03/31/2024 9:33 AM BREAKER UP MACHINE OPERATOR [facility] RESP THERAPY BIPAP Insp Pressure (cmH2O) 10 03/31/2024 9:33 AM BREAKER UP MACHINE OPERATOR [facility] RESP THERAP[facility] BIPAP Exp Pressure (cmH2O) 5 03/31/2024 9:33 AM BREAKER UP MACHINE OPERATOR [facility] RESP THERAP[facility] P/F Ratio 210 03/31/2024 9:33 AM BREAKER UP MACHINE OPERATOR [facility] Blood ARTERIAL BLOOD SPECIMEN / Unknown 03/31/2024 9:29 AM BREAKER UP MACHINE OPERATOR 03/31/2024 9:29 AM BREAKER UP MACHINE OPERATOR Tejas Graves MD LAB - BLOOD GASES OR DERABLES Performing Organization Address [facility]/ZIP Co de Phone Number [facility] RESP THERAPY [address] [id number] * TSH REFLEX FREE T4 (03/31/2024 9:25 AM BREAKER UP MACHINE OPERATOR) TSH 1.568 0.350 - 4.940 uIU/mL 03/31/2024 10:20 AM BREAKER UP MACHINE OPERATOR [facility] Blood BLOOD SPECIMEN / Unknown Lab Venipuncture / Unknown 03/31/2024 9:25 AM BREAKER UP MACHINE OPERATOR 03/31/2024 9:30 AM BREAKER UP MACHINE OPERATOR Tejas Graves MD LAB - CHEMISTRY ORDPaul KEE Performing Organization Address City/[facility]/ZIP Co de Phone Number [facility] [address] [id number] * (ABNORMAL) C-REACTIVE PROTEIN (03/31/2024 9:25 AM BREAKER UP MACHINE OPERATOR) C-Reactive Protein 1.35(H) <=0.50 mg/dL 03/31/2024 9:58 AM BREAKER UP MACHINE OPERATOR [facility] Blood BLOOD SPECIMEN / Unknown Lab Venipuncture / Unknown 03/31/2024 9:25 AM BREAKER UP MACHINE OPERATOR 03/31/2024 9:30 AM BREAKER UP MACHINE OPERATOR Tejas Graves MD LAB - CHEMISTRY ROSEANNA KEE [facility] [address] [place] [address] * (ABNORMAL) COMPREHENSIVE METABOLIC PANEL (03/31/2024 9:25 AM [facility]) Glucose 170(H) 70 - 99 mg/dL 03/31/2024 9:47 AM [facility] Sodium 142 136 - 145 mmol/L 03/31/2024 9:47 AM [facility] Potassium 4.0 3.5 - 5.1 mmol/L 03/31/2024 9:47 AM [facility] Chloride 109(H) 98 - 107 mmol/L 03/31/2024 9:47 AM [facility] CO2 21(L) 22 - 29 mmol/L 03/31/2024 9:47 AM [facility] Calcium 9.2 8.4 - 10.4 mg/dL 03/31/2024 9:47 AM [facility] Anion Gap 12 6 - 16 mmol/L 03/31/2024 9:47 AM [facility] BUN 20 7 - 26 mg/dL 03/31/2024 9:47 AM [facility] Creatinine 0.80 0.57 - 1.11 mg/dL 03/31/2024 9:47 AM [facility] Alkaline Phosphatase 120 40 - 150 U/L 03/31/2024 9:47 AM [facility] ALT 21 0 - 55 U/L 03/31/2024 9:47 AM [facility] AST 33 5 - 34 U/L 03/31/2024 9:47 AM [facility] Protein Total 7.0 6.4 - 8.3 gm/dL 03/31/2024 9:47 AM [facility] Albumin 3.6 3.4 - 5.0 gm/dL 03/31/2024 9:47 AM [facility] Bilirubin Total 0.4 0.2 - 1.2 mg/dL 03/31/2024 9:47 AM [facility] eGFR by CKD-EPI 83(L) >=90 mL/min/1.7 3 m2 03/31/2024 9:47 AM [facility] Blood BLOOD SPECIMEN / Unknown Lab Venipuncture / Unknown 03/31/2024 9:25 AM BREAKER UP MACHINE OPERATOR 03/31/2024 9:30 AM BREAKER UP MACHINE OPERATOR Tejas Graves MD LAB - CHEMISTRY ROSEANNA KEE [facility] Organization Address City/State/ZIP Co de Phone Number 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 Case Report Surgical Pathology Report Case: [id number] Authorizing Provider: Kash Garcia MD Collected: 11/21/2022 08:14 AM Ordering Location: [facility] Received: 11/21/2022 10:54 AM Pathologist: [...] true vocal fold. 11/25/2022 2:50 PM CDT [facility] Gross Description The requisition and specimen(s) are identified with the patient's name, Arlet Blake. Received in formalin, specimen A , are multiple fragments of granado-brown tissue, 0.2-0.5 cm, 0.5 x 0.3 x 0.2 cm in aggregate. Specimen is submitted in toto in cassette A1. [place] 11/25/2022 2:50 PM CDT [facility] Pathologist Location at [facility] 11/25/2022 2:50 PM CDT [facility] Disclaimer The performance characteristics of all immunohistochemical and indirect immunofluorescence stains (if any) cited in this report were determined by the Histopathology [facility] of [facility]. Some of these tests were developed [...] attending (teaching) pathologist. 11/25/2022 2:50 PM T [facility] Embedded Images 11/25/2022 2:50 PM T [facility] Biopsy, Excision BIOPSY OF VOCAL CORD / Unknown 11/21/2022 8:14 AM CDT 11/21/2022 10:54 AM CDT Comment:Pre-op diagnosis: Vocal cord dysplasia Kash Garcia MD LAB - PATHOLOGY/CYTO LOGY ORDERABLES [facility] [address] [place] [address], [facility] [phone] * ETT LINE PERFORMABLE (11/21/2022 8:03 AM CDT) Cedrick Luciano MD - 11/21/2022 8:03 AM CDT Cedrick Reyes MD 11/21/2022 8:03 AM Endotracheal Tube Placement: Patient Location: OR. Intubation Event Date/Time: 11/21/2022 7:48 AM Procedure: intubation (81806). Procedure Section: Sedation: under general anesthesia. Indications [...] Event Date/Time: 11/21/2022 7:38 AM Procedure: intubation (28686). Procedure Section: Sedation: under general anesthesia. Indications [...] Valderrama MD GENERAL ANESTHESIA O RDERABLES * [place] LARYNGOSCOPY,FLEX FIBER,DIAGNOSTIC (10/21/2022 4:30 PM CDT) Narrative [...] Event Date/Time: 09/21/2022 9:16 AM Procedure: intubation ([id number]). Procedure Section: Sedation: under general anesthesia. Indications [...] AM. Staff Section Anesthesia Provider: Senia Pretty APRN-SALES REPRESENTATIVE SUPERVISOR, Performed the procedure Rodger Hooks MD GENERAL ANESTHESIA ORDERABLES * [place] LARYNGOSCOPY,FLEX FIBER,DIAGNOSTIC (09/02/2022 8:51 AM CDT) Narrative Julio Hart MD - 09/02/2022 8:51 AM CDT Julio Hart MD 09/02/2022 9:24 AM Procedure Note Endoscopy Type: Laryngoscopy without stroboscopy [id number] Endoscope: Flexible 4mm Scope Anesthesia: Lidocaine 2% [...] MD PROCEDURE/MINOR SURG ICAL ORDERABLES Care Teams Community Living Instructor Relationship Specialty Start Date End Date Sara Irene, INTERACTIVE ART DIRECTOR-POLICE OFFICER [employer] [address] [place] [address] PCP - General Nurse Practitioner Family 7/24/23
--- OUTSIDE RECORDS SUMMARY | 2024-04-13 05:49 | XMS_ITS | Clinical Summary ---
Author Organization [facility] Finder[facility] Address [address] [place] [address] Care Team Providers Care Clay Pigeon Loader Name Role Phone Sara Irene APRN-MIXER CRANE OPERATOR Primary Care Provid er Source Comments [facility],non-owned Affiliates and Associated Physician Practices is amultiple site organization consisting of ambulatory clinics and hospital sitesin [place], [place], [place] and [place]. This disclosure is being madepursuant to the Care Everywhere program and may not contain all information available regarding this patient. Last updated 17.[facility] Allergies Active Allergy Reactions Criticality Noted Date [...] fluticasone propionate (Flonase) 50 MCG/ACT nasal spray Todd 1 (one) spray into each nostril once [...] Department Care Team Description 04/01/2024 8:30 AM HUMAN RESOURCES PARTNER - 04/01/2024 10:00 AM [facility] Surgery [facility] - Cardiac Clinical Engineer [address] [address] Chris Conte MD Left Heart Cath 03/31/2024 9:06 AM HUMAN RESOURCES PARTNER - 04/03/2024 11:42 AM [facility] Hospital Encounter [facility] [address] [address] Juliana Siddiqui MD Sood, MD Nichole Lazaro [...] and heating? Not hard at all 04/01/2024 Citizen Of [place] [facility] - Occupational Stress [...] any time in the past 12 m [facility], were you homeless or living in a correction (including now)? No 03/31/2024 Sex and Gender Information Value Date Recorded Sex Assigned at Not on file Gender Identity Not on file Sexual Orientation Not on file Last Filed Vital Signs Vital Sign Reading Time Taken Comments Blood Pressure 142/99 04/03/2024 7:59 AM HUMAN RESOURCES PARTNER Pulse 89 04/03/2024 9:18 AM HUMAN RESOURCES PARTNER Temperature 36.6 C (97.9 F) 04/03/2024 7:59 AM HUMAN RESOURCES PARTNER Respiratory Rate 18 04/03/2024 9:18 AM HUMAN RESOURCES PARTNER Oxygen Saturation 99% 04/03/2024 9:18 AM HUMAN RESOURCES PARTNER Inhaled Oxygen Concentration 40% 03/31/2024 4 :59 PM HUMAN RESOURCES PARTNER Weight 73.5 kg (162 lb) 04/02/2024 4:11 AM HUMAN RESOURCES PARTNER Height 157.5 cm (5' 2 ) 03/31/2024 10:03 AM HUMAN RESOURCES PARTNER Body Mass Index 29.63 03/31/2024 10:03 AM HUMAN RESOURCES PARTNER Plan of Treatment Upcoming Encounters Date Type Department Care Team (Late st Contact Info) Description 06/14/2024 9:00 AM CDT Office Visit [facility] - ENT [address], [place] [address] Kash Garcia MD [address] [place] [address] Health Maintenance Due Date Last [...] CARDIAC RHYTHM STRIP ORDER 04/05/2024 1:14 AM HUMAN RESOURCES PARTNER GLUCOSE - POINT OF CARE Routine 04/03/2024 7:59 AM HUMAN RESOURCES PARTNER PHOSPHORUS BLOOD STAT 04/03/2024 7:31 AM HUMAN RESOURCES PARTNER MAGNESIUM BLOOD STAT 04/03/2024 7:31 AM HUMAN RESOURCES PARTNER BASIC METABOLIC PANEL (CALCIUM TOTAL) STAT 04/03/2024 7:31 AM HUMAN RESOURCES PARTNER PT-INR Routine 04/03/2024 7:19 AM HUMAN RESOURCES PARTNER CBC W AUTO DIFFERENTIAL Routine 04/03/2024 7:19 AM HUMAN RESOURCES PARTNER GLUCOSE - POINT OF CARE Routine 04/02/2024 4:54 PM HUMAN RESOURCES PARTNER GLUCOSE - POINT OF CARE Routine 04/02/2024 4:41 PM HUMAN RESOURCES PARTNER GLUCOSE - POINT OF CARE Routine 04/02/2024 11:28 AM HUMAN RESOURCES PARTNER REJECTED SPUTUM GRAM STAIN Routine 04/02/2024 11:28 AM HUMAN RESOURCES PARTNER GLUCOSE - POINT OF CARE Routine 04/02/2024 6:19 AM HUMAN RESOURCES PARTNER PROCALCITONIN LEVEL AM Draw 04/02/2024 5 :54 AM HUMAN RESOURCES PARTNER BASIC METABOLIC PANEL (CALCIUM TOTAL) AM Draw 04/02/2024 5:54 AM HUMAN RESOURCES PARTNER PHOSPHORUS BLOOD AM Draw 04/02/2024 5:54 AM HUMAN RESOURCES PARTNER MAGNESIUM BLOOD Routine 04/02/2024 5:54 AM HUMAN RESOURCES PARTNER PT-INR Routine 04/02/2024 5:54 AM HUMAN RESOURCES PARTNER CBC W AUTO DIFFERENTIAL Routine 04/02/2024 5:54 AM HUMAN RESOURCES PARTNER XR CHEST 1VW PORTABLE Routine 04/02/2024 5:40 AM HUMAN RESOURCES PARTNER Acute respiratory failure with hypoxia (HCC) GLUCOSE - POINT OF CARE Routine 04/01/2024 8:12 PM HUMAN RESOURCES PARTNER GLUCOSE - POINT OF CARE Routine 04/01/2024 4:35 PM HUMAN RESOURCES PARTNER SARS-COV-2 (COVID-19) FLU A/B RSV PCR RAPID STAT 04/01/2024 1:24 PM HUMAN RESOURCES PARTNER GLUCOSE - POINT OF CARE Routine 04/01/2024 11:54 AM HUMAN RESOURCES PARTNER ECHO COMPLETE W CONTRAST Routine 04/01/2024 11:34 AM HUMAN RESOURCES PARTNER Sepsis with acute hypoxic respiratory failure, due to unspecified organism, unspecified whether septic shock present (HCC) CCL LEFT HEART CATH Routine 04/01/2024 9 :32 AM HUMAN RESOURCES PARTNER PTT Timed 04/01/2024 7:06 AM HUMAN RESOURCES PARTNER PT-INR Routine 04/01/2024 7:06 AM HUMAN RESOURCES PARTNER HEMOGLOBIN A1C Routine 04/01/2024 7:06 AM HUMAN RESOURCES PARTNER CBC W AUTO DIFFERENTIAL AM Draw 04/01/2024 7:06 AM HUMAN RESOURCES PARTNER GLUCOSE - POINT OF CARE Routine 04/01/2024 6:41 AM HUMAN RESOURCES PARTNER LIPID PROFILE AM Draw 04/01/2024 6:41 AM HUMAN RESOURCES PARTNER BASIC METABOLIC PANEL (CALCIUM TOTAL) AM Draw 04/01/2024 6:41 AM HUMAN RESOURCES PARTNER PTT Timed 03/31/2024 11:32 PM HUMAN RESOURCES PARTNER GLUCOSE - POINT OF CARE Routine 03/31/2024 4:50 PM HUMAN RESOURCES PARTNER PTT Routine 03/31/2024 4:39 PM HUMAN RESOURCES PARTNER PT-INR Routine 03/31/2024 4:39 PM HUMAN RESOURCES PARTNER TROPONIN-I HIGH SENSITIVE Routine 03/31/2024 3:[address] ANGIO CHEST PULM EMBOLISM Routine 03/31/2024 2:32 PM HUMAN RESOURCES PARTNER Sepsis with acute hypoxic respiratory failure, due to unspecified organism, unspecified whether septic shock present (HCC) LACTIC ACID BLOOD STAT 03/31/2024 1:3 6 PM HUMAN RESOURCES PARTNER TROPONIN-I HIGH SENSITIVE STAT 03/31/2024 12:46 PM HUMAN RESOURCES PARTNER GLUCOSE - POINT OF CARE Routine 03/31/2024 12:09 PM HUMAN RESOURCES PARTNER CULTURE BLOOD STAT 03/31/2024 10:28 AM HUMAN RESOURCES PARTNER ERYTHROCYTE SEDIMENTATION RATE Routine 03/31/2024 10:16 AM HUMAN RESOURCES PARTNER PROCALCITONIN LEVEL STAT 03/31/2024 1 0:16 AM HUMAN RESOURCES PARTNER B-TYPE NATRIURETIC PEPTIDE STAT 03/31/2024 10:16 AM HUMAN RESOURCES PARTNER CULTURE BLOOD STAT 03/31/2024 10:16 AM HUMAN RESOURCES PARTNER XR CHEST 1VW PORTABLE Routine 03/31/2024 9:52 AM HUMAN RESOURCES PARTNER Sepsis with acute hypoxic respiratory failure, due to unspecified organism, unspecified whether septic shock present (HCC) BLOOD GASES ARTERIAL RT Routine 03/31/2024 9:29 AM HUMAN RESOURCES PARTNER C-REACTIVE PROTEIN Routine 03/31/2024 9: 25 AM HUMAN RESOURCES PARTNER TSH REFLEX FREE T4 Routine 03/31/2024 9: 25 AM HUMAN RESOURCES PARTNER LACTIC ACID BLOOD STAT 03/31/2024 9:2 5 AM HUMAN RESOURCES PARTNER COMPREHENSIVE METABOLIC PANEL STAT 03/31/2024 9:25 AM HUMAN RESOURCES PARTNER CBC W AUTO DIFFERENTIAL STAT 03/31/2024 9:25 AM HUMAN RESOURCES PARTNER PT EVAL AND TREAT Routine 03/31/2024 9:2 3 AM HUMAN RESOURCES PARTNER OT EVAL AND TREAT Routine 03/31/2024 9:2 3 AM HUMAN RESOURCES PARTNER from Last 3 Months Results * CARDIAC RHYTHM STRIP ORDER (04/05/2024 1:14 AM HUMAN RESOURCES PARTNER) Narrative 04/05/2024 1:14 AM HUMAN RESOURCES PARTNER Ordered by an unspecified provider. Scanned Document CARDIAC SERVICES ORD ERABLES * (ABNORMAL) GLUCOSE - POINT OF CARE (04/03/2024 7:59 AM HUMAN RESOURCES PARTNER) Only the most recent of11 resultswithin the time period is included. Glucose WB/POC 102(H) 70 - 99 mg/dL 04/03/2024 8:10 AM HUMAN RESOURCES PARTNER [facility] Specimen Type Cap Fingerstick 2024 8:10 AM HUMAN RESOURCES PARTNER [facility] Blood BLOOD SPECIMEN / Unknown 04/03/2024 7:59 AM HUMAN RESOURCES PARTNER 04/03/2024 8:10 AM HUMAN RESOURCES PARTNER Elodia Varela MD LAB - POINT OF CARE ORDERABLES [facility] [place] [address] * (ABNORMAL) BASIC METABOLIC PANEL (CALCIUM TOTAL) (04/03/2024 7:31 AM HUMAN RESOURCES PARTNER) Only the most recent of3 resultswithin the time period is included. Glucose 113(H) 70 - 99 mg/dL 04/03/2024 8:05 AM HUMAN RESOURCES PARTNER [facility] Sodium 139 136 - 145 mmol/L 04/03/2024 8:[address] [facility] Potassium 4.3 3.5 - 5.1 mmol/L 04/03/2024 8:[address] [facility] Chloride 107 98 - 107 mmol/L 04/03/2024 8:[address] [facility] CO2 20(L) 22 - 29 mmol/L 04/03/2024 8:[address] [facility] Calcium 9.9 8.4 - 10.4 mg/dL 04/03/2024 8:[address] [facility] Anion Gap 12 6 - 16 mmol/L 04/03/2024 8:[address] [facility] BUN 28(H) 7 - 26 mg/dL 04/03/2024 8:[address] [facility] Creatinine 0.80 0.57 - 1.11 mg/dL 04/03/2024 8:[address] [facility] eGFR by CKD-EPI 83(L) >=90 mL/min/1.7 3 m2 04/03/2024 8:[address] [facility] Blood BLOOD SPECIMEN / Unknown Lab Venipuncture / Unknown 04/03/2024 7:31 AM HUMAN RESOURCES PARTNER 04/03/2024 7:37 AM [facility] Mariah Chavez PA-C LAB - CHEMISTRY ORDERABLES [facility] [address] [place] [address] * PHOSPHORUS BLOOD (04/03/2024 7:31 AM [facility]) Only the most recent of2 resultswithin the time period is included. Phosphorus 3.2 2.5 - 4.5 mg/dL 04/03/2024 8:[address] [facility] Blood BLOOD SPECIMEN / Unknown Lab Venipuncture / Unknown 04/03/2024 7:31 AM HUMAN RESOURCES PARTNER 04/03/2024 7:37 AM [facility] Mariah Chavez PA-C LAB - CHEMISTRY ORDERABLES [facility] [place] [id number] * MAGNESIUM BLOOD (04/03/2024 7:31 AM HUMAN RESOURCES PARTNER) Only the most recent of2 resultswithin the time period is included. Pathologist [facility] Magnesium 2.1 1.6 - 2.6 mg/dL 04/03/2024 8:05 AM HUMAN RESOURCES PARTNER [facility] Blood BLOOD SPECIMEN / Unknown Lab Venipuncture / Unknown 04/03/2024 7:31 AM HUMAN RESOURCES PARTNER 04/03/2024 7:37 AM HUMAN RESOURCES PARTNER Mariah Chavez PA-C LAB - CHEMISTRY ORDERABLES Performing Organization Address [facility] Co de Phone Number [facility] [place] [address] * PT-INR (04/03/2024 7:19 AM HUMAN RESOURCES PARTNER) Only the most recent of4 resultswithin the time period is included. Pathologist [facility] PT 13.6 12.1 - 14.8 sec 04/03/2024 7:48 AM HUMAN RESOURCES PARTNER [facility] INR 1.0 0.9 - 1.1 04/03/2024 7:[address] [facility] Blood BLOOD SPECIMEN / Unknown Lab Venipuncture / Unknown 04/03/2024 7:19 AM HUMAN RESOURCES PARTNER 04/03/2024 7:31 AM HUMAN RESOURCES PARTNER Narrative [facility] - 04/03/2024 7:48 AM HUMAN RESOURCES PARTNER Conventional Warfarin Anticoagulant Therapy: INR Reference Range: 2.0-3.0 Intensive Warfarin Anticoagulant Therapy: INR Reference Range: 2.5-3.5 Emanuel Simons MD LAB - COAGULA TION ORDERABLES Performing Organization Address City/[facility]/ZIP Co de Phone Number [facility] [address] [place] [phone] * CBC W AUTO DIFFERENTIAL (04/03/2024 7:19 AM HUMAN RESOURCES PARTNER) Only the most recent of4 resultswithin the time period is included. Pathologist [facility] WBC 7.5 4.0 - 10.7 x10E9/L 04/03/2024 8:[address] [facility] RBC Count 4.92 3.90 - 5.20 x10E12/L 04/03/2024 8:[address] [facility] Hemoglobin 14.7 11.9 - 15.8 g/dL 04/03/2024 8:[address] [facility] Hematocrit 42.5 34.8 - 46.1 % 04/03/2024 8:[address] [facility] MCV 86.4 80.0 - 98.0 fL 04/03/2024 8:[address] [facility] MCH 29.9 26.7 - 33.6 pg 04/03/2024 8:[address] [facility] MCHC 34.6 31.7 - 36.3 g/dL 04/03/2024 8:[address] [facility] RDW-CV 13.7 11.3 - 14.8 % 04/03/2024 8:[address] [facility] Platelet Count 209 150 - 420 x10E9/L 04/03/2024 8:[address] [facility] MPV 11.2 7.8 - 11.4 fL 04/03/2024 8:[address] [facility] Neutrophil % 64.5 41.0 - 74.0 % 04/03/2024 8:[address] [facility] Lymphocyte % 26.1 17.0 - 47.0 % 04/03/2024 8:[address] [facility] Monocyte % 6.6 3.0 - 11.0 % 04/03/2024 8:[address] [facility] Eosinophil % 1.3 0.0 - 7.0 % 04/03/2024 8:[address] [facility] Basophil % 1.2 0.0 - 1.6 % 04/03/2024 8:[address] [facility] Immature Granulocytes % 0.3 0.0 - 1.0 % 04/03/2024 8:[address] [facility] Neutrophil Absolute 4.82 1.60 - 7.50 x10E9/L 04/03/2024 8:[address] [facility] Lymphocyte Absolute 1.95 1.00 - 4.40 x10E9/L 04/03/2024 8:02 AM HUMAN RESOURCES PARTNER [facility] Monocyte Absolute 0.49 0.15 - 1.00 x10E9/L 04/03/2024 8:02 AM HUMAN RESOURCES PARTNER [facility] Eosinophil Absolute 0.10 0.00 - 0.60 x10E9/L 04/03/2024 8:02 AM HUMAN RESOURCES PARTNER [facility] Basophil Absolute 0.09 0.00 - 0.13 x10E9/L 04/03/2024 8:02 AM HUMAN RESOURCES PARTNER [facility] Blood BLOOD SPECIMEN / Unknown Lab Venipuncture / Unknown 04/03/2024 7:19 AM HUMAN RESOURCES PARTNER 04/03/2024 7:31 AM HUMAN RESOURCES PARTNER Emanuel Simons MD LAB - HEMATOL OGY ORDERABLES [facility] [address] [place] [address] * REJECTED SPUTUM GRAM STAIN (04/02/2024 11:28 AM HUMAN RESOURCES PARTNER) Gram Stain < 25 per low power field Polymorphonuclear cells. Consistent with poor quality specimen. 04/02/2024 3:51 PM HUMAN RESOURCES PARTNER [facility] Gram Stain Recollect if clinically indicated. 04/02/2024 3:51 PM [facility] Microbiology SPUTUM / Unknown Collection / Unknown 04/02/2024 11:28 AM HUMAN RESOURCES PARTNER 04/02/2024 11:34 AM HUMAN RESOURCES PARTNER Wei Greco MD LAB - MICROBIOLOGY O RDERABLES [facility] [address] [place] [address], [facility] [phone] * PROCALCITONIN LEVEL (04/02/2024 5:54 AM HUMAN RESOURCES PARTNER) Only the most recent of2 resultswithin the time period is included. Procalcitonin 0.07 <0.10 ng/mL 04/02/2024 6:56 AM HUMAN RESOURCES PARTNER [facility] Blood BLOOD SPECIMEN / Unknown Lab Venipuncture / Unknown 04/02/2024 5:54 AM HUMAN RESOURCES PARTNER 04/02/2024 6:17 AM HUMAN RESOURCES PARTNER Narrative [facility] - 04/02/2024 6:56 AM HUMAN RESOURCES PARTNER The change in procalcitonin (PCT) concentration over [...] Change in Procalcitonin Calculator is available at [email or web address] If clinical picture has not improved and PCT remains high, reevaluate and consider treatment failure or other causes. Rodríguez Benz MD LAB [facility] Organization Address City/State/ZIP Co de Phone Number [facility] [address] [place] [address] * XR Chest 1Vw Portable (04/02/2024 5:40 AM HUMAN RESOURCES PARTNER) Only the most recent of2 resultswithin the time period is included. Anatomical Region Laterality Modality Chest Radiographic Pattie ging 04/02/2024 7:58 AM HUMAN RESOURCES PARTNER Impressions 04/02/2024 8:08 AM HUMAN RESOURCES PARTNER IMPRESSION: Decreased bilateral airspace disease. Edited by Phoebe Rico on 04/02/2024 8:03 AM > Interpreting Provider: Rod Palma MD on 04/02/2024 8:08 AM Narrative 04/02/2024 8:08 AM HUMAN RESOURCES PARTNER XR CHEST 1VW PORTABLE INDICATION: J96.01: Acute [...] A/B RSV PCR RAPID (04/01/2024 1:24 PM HUMAN RESOURCES PARTNER) COVID-19 PCR Not detected Not detected 04/01/19 2:24 PM HUMAN RESOURCES PARTNER [facility] Influenza A PCR Not detected Not detected 04/01/2024 2:24 PM HUMAN RESOURCES PARTNER [facility] Influenza B PCR Not detected Not detected 04/01/2024 2:24 PM HUMAN RESOURCES PARTNER [facility] RSV PCR Not detected Not detected 04/01/2024 2:24 PM HUMAN RESOURCES PARTNER [facility] Microbiology SPECIMEN FROM NASOPHARYNGEAL STRUCTURE / Unknown Collection / Unknown 04/01/2024 1:24 PM HUMAN RESOURCES PARTNER 04/01/2024 1:39 PM HUMAN RESOURCES PARTNER Narrative [facility] - 04/01/2024 2:24 PM HUMAN RESOURCES PARTNER This nucleic acid amplification assay has been [...] Varela MD LAB - MICROBIOLOGY O RDERABLES [facility] [address] [address] * ECHO COMPLETE W CONTRAST (04/01/2024 11:34 AM HUMAN RESOURCES PARTNER) AV pk grad 8.2 mmHg [facility] CV [...] Laterality Modality Ultrasound 04/01/2024 11:0 0 AM HUMAN RESOURCES PARTNER Narrative 04/01/2024 5:26 PM HUMAN RESOURCES PARTNER Summary * Normal left ventricular size, global/ [...] 11:00 AM Patient Status: I/P Study Site: [facility] Primary [facility] EStudy Info Technical Quality: Technically Difficult [...] Provider: Tejas Graves Attending Physician: Te[facility] Aide: Gaby Morales Left Ventricle Normal left ventricular [...] 11:00 AM Patient Status: I/P Study Site: [facility] Primary Location: [facility] EStudy Info Technical Quality: Technically Difficult [...] Provider: Tejas Graves Attending Physician: Tejas [facility] Aide: Gaby Morales Left Ventricle Normal left ventricular [...] 2.55 cm2 >=2.00 AV Area (Cont Eq Laex) 2.46 cm2 AV DI (VTI) 0.81 AV [...] CCL LEFT HEART CATH (04/01/2024 9:32 AM HUMAN RESOURCES PARTNER) Anatomical Region Laterality Modality X-Ray Angiograph y Narrative 04/01/2024 9:46 AM HUMAN RESOURCES PARTNER Procedures Moderate sedation Left heart cardiac catheterization, selective coronary angiogram and left ventriculogram Indication-NSTEMI VACUUM FILTER OPERATOR-Chris Conte MD After informed consent was obtained the patient was transferred to the cardiac catheterization laboratory where bilateral groin areas were draped and prepped in sterile fashion. 1% lidocaine was utilized to achieve local anesthesia in the right femoral area. Utilizing Doppler guided ultrasound we accessed the right femoral artery and placed a 6 [place] sheath without any problems. A 5 [place] FL4 diagnostic catheter was utilized to cannulate the left main coronary artery and several angiographic views were obtained in different orthogonal planes of the left main LAD and left circumflex arteries. The catheter was exchanged over the wire for a 5 [place] FR4 and that catheter was utilized to [...] arteriotomy site was closed utilizing a 6 [place] Angio-Seal device with good hemostasis and no complications Estimated blood loss 30 cc Complications none Sedation Versed 2 mg IV and fentanyl 50 mcg IV Procedure Details Estimated Blood Loss: 30 mL Chris Conte MD CV CARDIAC CATH CUPI D PROCS * HEMOGLOBIN A1C (04/01/2024 7:06 AM HUMAN RESOURCES PARTNER) [facility] Signature Hemoglobin A1c 5.4 <5.7 % 04/01/2024 9:20 AM HUMAN RESOURCES PARTNER [facility] Estimated Average Glucose 108 mg/dL 04/01/2024 9:[address] [facility] Blood BLOOD SPECIMEN / Unknown Lab Venipuncture / Unknown 04/01/2024 7:06 AM HUMAN RESOURCES PARTNER 04/01/2024 7:17 AM HUMAN RESOURCES PARTNER Narrative [facility] - 04/01/2024 9:20 AM HUMAN RESOURCES PARTNER HbA1c Interpretation: Normal: < 5.7% Pre-diabetes: 5.7-6.4% [...] Graves MD LAB - CHEMISTRY ROSEANNA KEE [facility] Organization Address City/State/ZIP Co de Phone Number [facility] [address] [place] [address] * (ABNORMAL) PTT (04/01/2024 7:06 AM HUMAN RESOURCES PARTNER) Only the most recent of3 resultswithin the time period is included. PTT 71.8(H) 23.0 - 38.4 sec 04/01/2024 7:[address] [facility] Blood BLOOD SPECIMEN / Unknown Lab Venipuncture / Unknown 04/01/2024 7:06 AM HUMAN RESOURCES PARTNER 04/01/2024 7:17 AM HUMAN RESOURCES PARTNER Narrative [facility] - 04/01/2024 7:35 AM HUMAN RESOURCES PARTNER Heparin Therapeutic Range for PTT: 69.0 - 110.0 seconds. Emanuel Simons MD LAB - COAGULA TION ORDERABLES [facility] [address] [place] [address] * (ABNORMAL) LIPID PROFILE (04/01/2024 6:41 AM HUMAN RESOURCES PARTNER) Cholesterol 195 <200 mg/dL 04/01/2024 10:[address] [facility] Triglycerides 272(H) <150 mg/dL 04/01/2024 10:[address] [facility] HDL Cholesterol 35(L) >40 mg/dL 10:[address] [facility] LDL Calculated 106 <130 mg/dL 04/01/2024 10:[address] [facility] VLDL Calculated 54(H) <=30 mg/dL 10:[address] [facility] Chol HDL Ratio 5.6(H) <4.5 04/01/2024 10:[address] [facility] LDL/HDL Ratio 3.0 <5.0 04/01/2024 10:[address] [facility] Blood BLOOD SPECIMEN / Unknown Lab Venipuncture / Unknown 04/01/2024 6:41 AM HUMAN RESOURCES PARTNER 04/01/2024 6:46 AM HUMAN RESOURCES PARTNER Tejas Graves MD LAB - CHEMISTRY ROSEANNA KEE Performing Organization Address City/[facility]/ZIP Co de Phone Number [facility] [address] [place] [address] * (ABNORMAL) TROPONIN-I HIGH SENSITIVE (03/31/2024 3:11 PM HUMAN RESOURCES PARTNER) Only the most recent of2 resultswithin the time period is included. Troponin I High Sensitive 5,189(HH) <=14 ng/L 03/31/2024 4:[address] [facility] Blood BLOOD SPECIMEN / Unknown Lab Venipuncture / Unknown 03/31/2024 3:11 PM HUMAN RESOURCES PARTNER 03/31/2024 3:19 PM HUMAN RESOURCES PARTNER Tejas Graves MD LAB - CHEMISTRY ORDPaul TARYNRORY Liang Organization Address City/State/ZIP Co de Phone Number [facility] [address] [address] * CT Angio Chest Pulm Embolism (03/31/2024 2:32 PM HUMAN RESOURCES PARTNER) Anatomical Region Laterality Modality Chest Computed Tomogra phy 03/31/2024 2:41 PM HUMAN RESOURCES PARTNER Impressions 03/31/2024 2:43 PM HUMAN RESOURCES PARTNER IMPRESSION: 1. No pulmonary embolism. 2. Findings most consistent with congestive heart failure with interstitial and alveolar pulmonary edema and small pleural effusion. Differential includes infection. > Interpreting Provider: Daniele Pino MD on 03/31/2024 2:43 PM Narrative 03/31/2024 2:43 PM HUMAN RESOURCES PARTNER PROCEDURE: CT ANGIO CHEST PULM EMBOLISM DATE/TIME [...] (ABNORMAL) LACTIC ACID BLOOD (03/31/2024 1:36 PM HUMAN RESOURCES PARTNER) Only the most recent of2 resultswithin the time period is included. Lactic Acid 2.9(H) <=2 mmol/L 03/31/2024 2:07 PM HUMAN RESOURCES PARTNER [facility] Blood BLOOD SPECIMEN / Unknown Lab Venipuncture / Unknown 03/31/2024 1:36 PM HUMAN RESOURCES PARTNER 03/31/2024 1:52 PM HUMAN RESOURCES PARTNER Tejas Graves MD LAB - CHEMISTRY ROSEANNA KEE [facility] Organization Address City/State/ZIP Co de Phone Number [facility] [address] [address] * CULTURE BLOOD (03/31/2024 10:28 AM HUMAN RESOURCES PARTNER) Only the most recent of2 resultswithin the time period is included. Pathologist [facility] Culture No growth day 5 ADE 04/05/2024 2:01 PM H[employer] PARTNER [facility] Blood PERIPHERAL BLOOD / Unknown Lab Venipuncture / Unknown 03/31/2024 10:28 AM [employer] PARTNER 03/31/2024 10:32 AM HUM[employer] PARTNER Tejas Graves MD LAB - MICROBIOLOGY O RDERABLES [facility] [address] [place] [address] [phone] * ERYTHROCYTE SEDIMENTATION RATE (03/31/2024 10:16 AM HUMAN RESOURCES PARTNER) Pathologist [facility] Erythrocyte Sedimentation Rate Automated 14 0 - 30 MM/HR 03/31/2024 10:36 AM HUMAN RESOURCES PARTNER [facility] Blood BLOOD SPECIMEN / Unknown Lab Venipuncture / Unknown 03/31/2024 10:16 AM HUMAN RESOURCES PARTNER 03/31/2024 10:32 AM HUMAN RESOURCES PARTNER Tejas Graves MD LAB - HEMATOLOGY ORD ERABLES [facility] [address] [place] [address] * (ABNORMAL) B-TYPE NATRIURETIC PEPTIDE (03/31/2024 10:16 AM HUMAN RESOURCES PARTNER) Pathologist [facility] BNP 516(H) <=100 pg/mL 03/31/2024 10:55 AM HUMAN RESOURCES PARTNER [facility] Blood BLOOD SPECIMEN / Unknown Lab Venipuncture / Unknown 03/31/2024 10:16 AM HUMAN RESOURCES PARTNER 03/31/2024 10:32 AM HUMAN RESOURCES PARTNER Narrative [facility] - 03/31/2024 10:55 AM HUMAN RESOURCES PARTNER A cutoff of 100 pg/mL has been [...] Graves MD LAB - CHEMISTRY ROSEANNA KEE [facility] Organization Address City/State/ZIP Co de Phone Number [facility] [address] [place] [address] * BLOOD GASES ARTERIAL (03/31/2024 9:29 AM HUMAN RESOURCES PARTNER) pH Arterial 7.44 7.35 - 7.45 pH 03/31/2024 9:33 AM HUMAN RESOURCES PARTNER [facility] pO2 Arterial 84 80 - 100 mmHg 03/31/2024 9:33 AM HUMAN RESOURCES PARTNER [facility] pCO2 Arterial 36 35 - 45 mmHg 03/31/2024 9:33 AM HUMAN RESOURCES PARTNER [facility] HCO3 Arterial 24.5 22.0 - 26.0 mmol/L 03/31/2024 9:33 AM HUMAN RESOURCES PARTNER [facility] BE Arterial 0.6 -2.0 - 2.0 mmol/L 03/31/2024 9:33 AM HUMAN RESOURCES PARTNER [facility] O2 Saturation Arterial 99 90 - 100 % 03/31/2024 9:33 AM HUMAN RESOURCES PARTNER [facility] Temperature (C) 37.0 C 9:33 AM HUMAN RESOURCES PARTNER [facility] Galen's Test Positive 03/31/2024 9:33 AM HUMAN RESOURCES PARTNER [facility] Mode Bipap 03/31/2024 9:33 AM HUMAN RESOURCES PARTNER [facility] FI O2 40.0 % 03/31/2024 9:33 AM HUMAN RESOURCES PARTNER [facility] BIPAP Insp Pressure (cmH2O) 10 03/31/2024 9:33 AM HUMAN RESOURCES PARTNER [facility] BIPAP Exp Pressure (cmH2O) 5 03/31/2024 9:33 AM HUMAN RESOURCES PARTNER [facility] P/F Ratio 210 03/31/2024 9:33 AM HUMAN RESOURCES PARTNER [facility] Blood ARTERIAL BLOOD SPECIMEN / Unknown 03/31/2024 9:29 AM HUMAN RESOURCES PARTNER 03/31/2024 9:29 AM HUMAN RESOURCES PARTNER Tejas Graves MD LAB - BLOOD GASES OR DERABLES Performing Organization Address [facility]/ZIP Co de Phone Number [facility] [address] [address], [facility] * TSH REFLEX FREE T4 (03/31/2024 9:25 AM HUMAN RESOURCES PARTNER) TSH 1.568 0.350 - 4.940 uIU/mL 03/31/2024 10:20 AM HUMAN RESOURCES PARTNER [facility] Blood BLOOD SPECIMEN / Unknown Lab Venipuncture / Unknown 03/31/2024 9:25 AM HUMAN RESOURCES PARTNER 03/31/2024 9:30 AM HUMAN RESOURCES PARTNER Tejas Graves MD LAB - CHEMISTRY ORDE CHILANGO Performing Organization Address [facility] Co de Phone Number [facility] [address] [address] * (ABNORMAL) C-REACTIVE PROTEIN (03/31/2024 9:25 AM HUMAN RESOURCES PARTNER) C-Reactive Protein 1.35(H) <=0.50 mg/dL 03/31/2024 9:58 AM HUMAN RESOURCES PARTNER [facility] Blood BLOOD SPECIMEN / Unknown Lab Venipuncture / Unknown 03/31/2024 9:25 AM HUMAN RESOURCES PARTNER 03/31/2024 9:30 AM HUMAN RESOURCES PARTNER Tejas Graves MD LAB - CHEMISTRY ROSEANNA KEE Performing Organization Address [facility]/ZIP Co de Phone Number [facility] [address] [address] * (ABNORMAL) COMPREHENSIVE METABOLIC PANEL (03/31/2024 9:25 AM HUMAN RESOURCES PARTNER) Glucose 170(H) 70 - 99 mg/dL 03/31/2024 9:47 AM HUMAN RESOURCES PARTNER [facility] Sodium 142 136 - 145 mmol/L 03/31/2024 9:[address] [facility] Potassium 4.0 3.5 - 5.1 mmol/L 03/31/2024 9:[address] [facility] Chloride 109(H) 98 - 107 mmol/L 03/31/2024 9:[address] [facility] CO2 21(L) 22 - 29 mmol/L 03/31/2024 9:[address] [facility] Calcium 9.2 8.4 - 10.4 mg/dL 03/31/2024 9:[address] [facility] Anion Gap 12 6 - 16 mmol/L 03/31/2024 9:[address] [facility] BUN 20 7 - 26 mg/dL 03/31/2024 9:[address] [facility] Creatinine 0.80 0.57 - 1.11 mg/dL 03/31/2024 9:[address] [facility] Alkaline Phosphatase 120 40 - 150 U/L 03/31/2024 9:[address] [facility] ALT 21 0 - 55 U/L 03/31/2024 9:[address] [facility] AST 33 5 - 34 U/L 03/31/2024 9:[address] [facility] Protein Total 7.0 6.4 - 8.3 gm/dL 03/31/2024 9:[address] [facility] Albumin 3.6 3.4 - 5.0 gm/dL 03/31/2024 9:[address] [facility] Bilirubin Total 0.4 0.2 - 1.2 mg/dL 03/31/2024 9:[address] [facility] eGFR by CKD-EPI 83(L) >=90 mL/min/1.7 3 m2 03/31/2024 9:[address] [facility] Blood BLOOD SPECIMEN / Unknown Lab Venipuncture / Unknown 03/31/2024 9:25 AM HUMAN RESOURCES PARTNER 03/31/2024 9:30 AM HUMAN RESOURCES PARTNER Tejas Graves MD LAB - CHEMISTRY ROSEANNA KEE [facility] [address] [id number] from Last 3 Months Advance Directives * Full Code (Latest Code Status on File) Date Activated Date Inactivated Comments 04/01/2024 9:41 AM 04/03/2024 12:47 PM * Full Code Date Activated Date Inactivated Comments 03/31/2024 9:24 AM 04/01/2024 9:41 AM Care Teams Clay Pigeon Loader Relationship Specialty Start Date End Date Sara Irene, SWITCH ENGINEER-MIXER CRANE OPERATOR [address] [place] [address] PCP - General Nurse Practitioner Family 08/29/22
--- NOTE | 2024-04-13 05:52 | ED_ITS ---
HPI - General Adult General Chief complaint: Nausea/Vomiting/Diarrhea <Paola Vu MD - Last Filed: 04/14/24 18:16> Stated complaint: Vomiting <Paola Vu MD - Last Filed: 04/14/24 18:16> Time Seen by Provider: 04/13/24 05:52 <Paola Vu MD - Last Filed: 04/14/24 18:16> Source: patient and EMS <Paola Vu MD - Last Filed: 04/14/24 18:16> Mode of arrival: EMS <Paola Vu MD - Last Filed: 04/14/24 18:16> Limitations: clinical condition <Paola Vu MD - Last Filed: 04/14/24 18:16> History of Present Illness HPI narrative: 63 years old white female came to the ED by ambulance from home with severe nausea, vomiting and diarrhea started 1-1/2 hour prior to arrival to the emergency room. she went to bed okay and workup at 4:00 a.m. with the above symptoms. History of COPD, restless leg syndrome, chronic neck pain, chronic lower back pain,bladder cancer, hypertension, hyperlipidemia, GERD, bipolar, asthma, hysterectomy <Paola Vu MD - Last Filed: 04/14/24 18:16> Related Data Home medications: Home Medications ?Medication ?Instructions ?Recorded ?Confirmed ?Last Taken ?Type potassium chloride 20 mEq 20 meq PO DAILY@0800 04/13/24 04/13/24 Unknown History tablet,extended release (K-Tab) <Paola Vu MD - Last Filed: 04/14/24 18:16> Allergies/adverse reactions: Allergies Allergy/AdvReac Type Severity Reaction Status Date / Time codeine Allergy Intermediate Unknown Verified 04/13/24 06:16 morphine Allergy Intermediate Unknown Verified 04/13/24 06:16 Penicillins Allergy Intermediate Unknown Verified 04/13/24 06:16 methylprednisolone AdvReac Intermediate Palpitation Verified 04/13/24 06:16 s <Paola Vu MD - Last Filed: 04/14/24 18:16> Review of Systems 2 Review of Systems: All systems reviewed & are unremarkable except as noted in HPI and below <Paola Vu MD - Last Filed: 04/14/24 18:16> PMFSH Past Medical History Medical History: Medical History COPD (chronic obstructive pulmonary disease) Cancer Nocturnal leg cramps Chronic neck pain Overweight (BMI 25.0-29.9) Nicotine dependence in remission Bladder cancer Chronic low back pain Hypertension Hypercholesteremia GERD (gastroesophageal reflux disease) Bipolar 1 disorder Asthma <Paola Vu MD - Last Filed: 04/14/24 18:16> Surgical History Surgical History: Surgical History H/O nephrolithotomy with removal of calculi x2 on right and x3 on left; Bladder tumor Tumor Removal 2011 Hx of cataract surgery (~2014) Hx of tonsillectomy (~1966) History of hysterectomy (~1999) LIBERTAD BSO <Paola Vu MD - Last Filed: 04/14/24 18:16> Family History Family History: Family History Mother Family history of coronary artery disease Rectal cancer Hypertension Depression Heart disease Father Family history of coronary artery disease Throat cancer Lung cancer Diabetes mellitus Hypertension Brother Family history of coronary artery disease Alcoholism Diabetes mellitus Heart disease Cerebrovascular accident Sibling Cancer <Paola Vu MD - Last Filed: 04/14/24 18:16> Social History Social History: Social History Smoking packs per day: 1 Smoking cigarettes per day: 20.0 Years smoked: 40 Smoking pack-years: 40.00 Smoking status: Former smoker Tobacco type: cigarettes Second hand tobacco smoke exposure: No Smoking end date: 01/08/13 Additional smoking assessment comments: Quit 2013. 30 pack-year history Alcohol intake: never Substance use: current Substance use type: marijuana Other substance usage details: daily Last use: last week Do You Feel Safe in your Home?: Yes Lack of Transportation: No Lack of Food: Never True Current Housing: I Have Housing Concerned About Future Housing: No Difficulty Paying Gas/Electric Bills: Decline to Answer Difficulty Paying for Meds: Decline to Answer Currently Unemployed: Decline to Answer Education: Decline to Answer Difficulty w/ Childcare or Family Care: No Living arrangements: with family Additional living arrangements comments: . No children. Occupation/Education: retired Additional occupation/education comments: Prior Occupation: [employer]. Gender identity (if verbalized by the patient): Female Spiritual care concerns: No <Paola Vu MD - Last Filed: 04/14/24 18:16> Exam 2 Narrative: General appearance: Well-developed, well-nourished restless, hyperventilating, dry heaving Skin: Normal color Head: Normocephalic, nontraumatic Eyes: Clear conjunctiva ENT: Oropharynx normal, ears normal, nose normal Neck: Supple, nontender Chest and respiratory: Airway patent, no respiratory distress, no accessory muscle use Heart: Regular rate/rhythm Abdomen: Soft, epigastric tenderness, no organomegaly, hyperactive bowel sounds Musculoskeletal: Normal range of motion, nontender back Neurologic: Alert and oriented ?3, INTERIOR HORTICULTURIST is normal as tested, no gross motor deficit <Paola Vu MD - Last Filed: 04/14/24 18:16> Course Course Emergency Course: patient with intractable vomiting did receive IV fluids along with Zofran and a dose of Reglan and started on [place] [address] with potassium 3.2, UA is negative urine drug screen shows positive for cannabinoids, lipase is negative, COVID RSV influenza negative. CT scan abdomen pelvis performed and reviewed with patient. took over care previous ER physician. <Satya Gardner MD - Last Filed: 04/13/24 08:04> Vital Signs Vital signs: Vital Signs Temperature 36.4 C 04/13/24 05:47 Pulse Rate 80 04/13/24 05:47 Respiratory Rate 18 04/13/24 05:47 Pulse Oximetry 99 04/13/24 05:47 Oxygen Delivery Room Air 04/13/24 05:47 Temperature 36.7 C 04/14/24 08:00 Pulse Rate 93 04/14/24 08:00 Respiratory Rate 14 04/14/24 08:00 Blood Pressure 142/68 H 04/14/24 08:00 Pulse Oximetry 98 04/14/24 08:00 Oxygen Delivery Room Air 04/14/24 08:00 <Paola Vu MD - Last Filed: 04/14/24 18:16> Vital Signs Temperature 36.4 C 04/13/24 05:47 Pulse Rate 80 04/13/24 05:47 Respiratory Rate 18 04/13/24 05:47 Pulse Oximetry 99 04/13/24 05:47 Oxygen Delivery Room Air 04/13/24 05:47 Temperature 36.7 C 04/14/24 08:00 Pulse Rate 93 04/14/24 08:00 Respiratory Rate 14 04/14/24 08:00 Blood Pressure 142/68 H 04/14/24 08:00 Pulse Oximetry 98 04/14/24 08:00 Oxygen Delivery Room Air 04/14/24 08:00 <Satya Gardner MD - Last Filed: 04/13/24 08:04> Medical Decision Making MDM Narrative Medical decision making narrative: patient came to the ED by ambulance with severe vomiting and diarrhea 1-2 hours prior to arrival to the emergency room Vital signs showing blood pressure 188/ 96 otherwise within normal limit Physical examination showing very anxious restless hyperventilating patient with severe dry heaving Differential diagnosis include anxiety like symptoms, viral infection, less likely electrolyte imbalance or dehydration. <Paola Vu MD - Last Filed: 04/14/24 18:16> Vital Signs Vital Signs: Vital Signs Temperature 36.4 C 04/13/24 05:47 Pulse Rate 80 04/13/24 05:47 Respiratory Rate 18 04/13/24 05:47 Pulse Oximetry 99 04/13/24 05:47 Oxygen Delivery Room Air 04/13/24 05:47 Temperature 36.7 C 04/14/24 08:00 Pulse Rate 93 04/14/24 08:00 Respiratory Rate 14 04/14/24 08:00 Blood Pressure 142/68 H 04/14/24 08:00 Pulse Oximetry 98 04/14/24 08:00 Oxygen Delivery Room Air 04/14/24 08:00 <Paola Vu MD - Last Filed: 04/14/24 18:16> Vital Signs Temperature 36.4 C 04/13/24 05:47 Pulse Rate 80 04/13/24 05:47 Respiratory Rate 18 04/13/24 05:47 Pulse Oximetry 99 04/13/24 05:47 Oxygen Delivery Room Air 04/13/24 05:47 Temperature 36.7 C 04/14/24 08:00 Pulse Rate 93 04/14/24 08:00 Respiratory Rate 14 04/14/24 08:00 Blood Pressure 142/68 H 04/14/24 08:00 Pulse Oximetry 98 04/14/24 08:00 Oxygen Delivery Room Air 04/14/24 08:00 <Satya Gardner MD - Last Filed: 04/13/24 08:04> Lab Data Result diagrams: 04/14/24 05:47 04/14/24 05:47 <Paola Vu MD - Last Filed: 04/14/24 18:16> Labs: Lab Results 04/13/24 04/13/24 04/13/24 Range/Units 05:59 06:13 06:18 WBC 15.3 H (4.8-10.8) K/mm3 RBC 4.55 (4.20-5.40) M/mm3 Hgb 13.5 (12.0-15.0) g/dL Hct 40.9 (35.0-49.0) % MCV 89.9 (78.0-102.0) fL MCH 29.7 (27.0-31.0) pg MCHC 33.0 (32-36) g/dL RDW 13.6 (11.6-14.4) % Plt Count 227 (150-420) K/mm3 MPV 11.0 (9.2-11.8) fl Immature Gran % (Auto) 0.7 H (0.0-0.0) % Neut % (Auto) 87.6 H (50.0-70.0) % Lymph % (Auto) 6.6 L (18.0-42.0) % [place] % (Auto) 3.8 (2.0-11.0) % Eos % (Auto) 0.8 L (1.0-6.0) % Baso % (Auto) 0.5 (0.0-1.0) % Lymph # (Auto) 1.01 L (1.10-4.50) K/mm3 [place] # (Auto) 0.58 (0.10-0.90) K/mm3 Eos # (Auto) 0.12 (0.02-0.50) K/mm3 Baso # (Auto) 0.08 (0.00-0.10) K/mm3 Abs Immat Gran (auto) 0.10 H (0.00-0.00) K/mm3 Absolute Neuts (auto) 13.39 H (1.70-7.20) K/mm3 Absolute Nucleated RBC 0.00 (0.00-0.00) K/mm3 Nucleated RBC % 0.0 (0-0.0) % Sodium 143 (136-145) mmol/L Potassium 3.2 L (3.5-5.1) mmol/L Chloride 105 (98-108) mmol/L Carbon Dioxide 21 (21-32) mmol/L Anion Gap 17 H (4-12) mmol/L BUN 22 H (7-18) mg/dL Creatinine 1.13 H (0.55-1.02) mg/dL Estim Creat Clear Calc 37 ml/min Estimated GFR 49 L (59 - ) Glucose 181 H (70-99) mg/dL Hemoglobin A1c 5.7 (<5.7) % Calculated Osmolality 304 H (285-295) mOsm/kg Calcium 9.0 (8.5-10.1) mg/dL Magnesium 1.8 (1.8-2.4) mg/dL Total Bilirubin 0.4 (0.00-1.00) mg/dL AST 15 (15-37) U/L ALT 23 (14-59) U/L Alkaline Phosphatase 147 H (46-116) U/L Troponin I 16.4 (0.00-60.4) ng/L Total Protein 7.4 (6.4-8.2) g/dL Albumin 3.9 (3.4-5.0) g/dL Lipase 23 (16-77) U/L Urine Color (Yellow) Urine Appearance (Clear) Urine pH (5.0-8.0) Ur Specific [place] (1.010-1.020) Urine Protein (Negative) Urine Glucose (UA) (Negative) Urine Ketones (Negative) Ur Blood (Man) (Negative) Urine Nitrate (Negative) Urine Bilirubin (Negative) Urine Urobilinogen (0.2-1.0) mg/dL Leukocyte Esterase Rfl (Negative) RAQUEL/UL Urine Opiates Screen (Negative) Urine Methadone Screen (Negative) Ur Barbiturates Screen (Negative) Ur Phencyclidine Scrn (Negative) Ur Amphetamine Screen (Negative) U Benzodiazepines Scrn (Negative) Urine Cocaine Screen (Negative) U Cannabinoids Screen (Negative) Influenza A (RT-PCR) Negative (Negative) Influenza B (RT-PCR) Negative (Negative) RSV (RT-PCR) Negative (Negative) SARS-CoV-2 RNA (RT-PCR) Negative (Negative) 04/13/24 Range/Units 06:45 WBC (4.8-10.8) K/mm3 RBC (4.20-5.40) M/mm3 Hgb (12.0-15.0) g/dL Hct (35.0-49.0) % MCV (78.0-102.0) fL MCH (27.0-31.0) pg MCHC (32-36) g/dL RDW (11.6-14.4) % Plt Count (150-420) K/mm3 MPV (9.2-11.8) fl Immature Gran % (Auto) (0.0-0.0) % Neut % (Auto) (50.0-70.0) % Lymph % (Auto) (18.0-42.0) % [place] % (Auto) (2.0-11.0) % Eos % (Auto) (1.0-6.0) % Baso % (Auto) (0.0-1.0) % Lymph # (Auto) (1.10-4.50) K/mm3 [place] # (Auto) (0.10-0.90) K/mm3 Eos # (Auto) (0.02-0.50) K/mm3 Baso # (Auto) (0.00-0.10) K/mm3 Abs Immat Gran (auto) (0.00-0.00) K/mm3 Absolute Neuts (auto) (1.70-7.20) K/mm3 Absolute Nucleated RBC (0.00-0.00) K/mm3 Nucleated RBC % (0-0.0) % Sodium (136-145) mmol/L Potassium (3.5-5.1) mmol/L Chloride (98-108) mmol/L Carbon Dioxide (21-32) mmol/L Anion Gap (4-12) mmol/L BUN (7-18) mg/dL Creatinine (0.55-1.02) mg/dL Estim Creat Clear Calc ml/min Estimated GFR (59 - ) Glucose (70-99) mg/dL Hemoglobin A1c (<5.7) % Calculated Osmolality (285-295) mOsm/kg Calcium (8.5-10.1) mg/dL Magnesium (1.8-2.4) mg/dL Total Bilirubin (0.00-1.00) mg/dL AST (15-37) U/L ALT (14-59) U/L Alkaline Phosphatase (46-116) U/L Troponin I (0.00-60.4) ng/L Total Protein (6.4-8.2) g/dL Albumin (3.4-5.0) g/dL Lipase (16-77) U/L Urine Color Light yellow (Yellow) Urine Appearance Clear (Clear) Urine pH 5.5 (5.0-8.0) Ur Specific [place] >= 1.030 H (1.010-1.020) Urine Protein Negative (Negative) Urine Glucose (UA) Negative (Negative) Urine Ketones Negative (Negative) Ur Blood (Man) Negative (Negative) Urine Nitrate Negative (Negative) Urine Bilirubin Negative (Negative) Urine Urobilinogen 0.2 (0.2-1.0) mg/dL Leukocyte Esterase Rfl Negative (Negative) RAQUEL/UL Urine Opiates Screen Negative (Negative) Urine Methadone Screen Negative (Negative) Ur Barbiturates Screen Negative (Negative) Ur Phencyclidine Scrn Negative (Negative) Ur Amphetamine Screen Negative (Negative) U Benzodiazepines Scrn Negative (Negative) Urine Cocaine Screen Negative (Negative) U Cannabinoids Screen Positive A (Negative) Influenza A (RT-PCR) (Negative) Influenza B (RT-PCR) (Negative) RSV (RT-PCR) (Negative) SARS-CoV-2 RNA (RT-PCR) (Negative) <Paola Vu MD - Last Filed: 04/14/24 18:16> Lab Results 04/13/24 04/13/24 04/13/24 Range/Units 05:59 06:13 06:18 WBC 15.3 H (4.8-10.8) K/mm3 RBC 4.55 (4.20-5.40) M/mm3 Hgb 13.5 (12.0-15.0) g/dL Hct 40.9 (35.0-49.0) % MCV 89.9 (78.0-102.0) fL MCH 29.7 (27.0-31.0) pg MCHC 33.0 (32-36) g/dL RDW 13.6 (11.6-14.4) % Plt Count 227 (150-420) K/mm3 MPV 11.0 (9.2-11.8) fl Immature Gran % (Auto) 0.7 H (0.0-0.0) % Neut % (Auto) 87.6 H (50.0-70.0) % Lymph % (Auto) 6.6 L (18.0-42.0) % [place] % (Auto) 3.8 (2.0-11.0) % Eos % (Auto) 0.8 L (1.0-6.0) % Baso % (Auto) 0.5 (0.0-1.0) % Lymph # (Auto) 1.01 L (1.10-4.50) K/mm3 [place] # (Auto) 0.58 (0.10-0.90) K/mm3 Eos # (Auto) 0.12 (0.02-0.50) K/mm3 Baso # (Auto) 0.08 (0.00-0.10) K/mm3 Abs Immat Gran (auto) 0.10 H (0.00-0.00) K/mm3 Absolute Neuts (auto) 13.39 H (1.70-7.20) K/mm3 Absolute Nucleated RBC 0.00 (0.00-0.00) K/mm3 Nucleated RBC % 0.0 (0-0.0) % Sodium 143 (136-145) mmol/L Potassium 3.2 L (3.5-5.1) mmol/L Chloride 105 (98-108) mmol/L Carbon Dioxide 21 (21-32) mmol/L Anion Gap 17 H (4-12) mmol/L BUN 22 H (7-18) mg/dL Creatinine 1.13 H (0.55-1.02) mg/dL Estim Creat Clear Calc 37 ml/min Estimated GFR 49 L (59 - ) Glucose 181 H (70-99) mg/dL Hemoglobin A1c 5.7 (<5.7) % Calculated Osmolality 304 H (285-295) mOsm/kg Calcium 9.0 (8.5-10.1) mg/dL Magnesium 1.8 (1.8-2.4) mg/dL Total Bilirubin 0.4 (0.00-1.00) mg/dL AST 15 (15-37) U/L ALT 23 (14-59) U/L Alkaline Phosphatase 147 H (46-116) U/L Troponin I 16.4 (0.00-60.4) ng/L Total Protein 7.4 (6.4-8.2) g/dL Albumin 3.9 (3.4-5.0) g/dL Lipase 23 (16-77) U/L Urine Color (Yellow) Urine Appearance (Clear) Urine pH (5.0-8.0) Ur Specific [place] (1.010-1.020) Urine Protein (Negative) Urine Glucose (UA) (Negative) Urine Ketones (Negative) Ur Blood (Man) (Negative) Urine Nitrate (Negative) Urine Bilirubin (Negative) Urine Urobilinogen (0.2-1.0) mg/dL Leukocyte Esterase Rfl (Negative) RAQUEL/UL Urine Opiates Screen (Negative) Urine Methadone Screen (Negative) Ur Barbiturates Screen (Negative) Ur Phencyclidine Scrn (Negative) Ur Amphetamine Screen (Negative) U Benzodiazepines Scrn (Negative) Urine Cocaine Screen (Negative) U Cannabinoids Screen (Negative) Influenza A (RT-PCR) Negative (Negative) Influenza B (RT-PCR) Negative (Negative) RSV (RT-PCR) Negative (Negative) SARS-CoV-2 RNA (RT-PCR) Negative (Negative) 04/13/24 Range/Units 06:45 WBC (4.8-10.8) K/mm3 RBC (4.20-5.40) M/mm3 Hgb (12.0-15.0) g/dL Hct (35.0-49.0) % MCV (78.0-102.0) fL MCH (27.0-31.0) pg MCHC (32-36) g/dL RDW (11.6-14.4) % Plt Count (150-420) K/mm3 MPV (9.2-11.8) fl Immature Gran % (Auto) (0.0-0.0) % Neut % (Auto) (50.0-70.0) % Lymph % (Auto) (18.0-42.0) % [place] % (Auto) (2.0-11.0) % Eos % (Auto) (1.0-6.0) % Baso % (Auto) (0.0-1.0) % Lymph # (Auto) (1.10-4.50) K/mm3 [place] # (Auto) (0.10-0.90) K/mm3 Eos # (Auto) (0.02-0.50) K/mm3 Baso # (Auto) (0.00-0.10) K/mm3 Abs Immat Gran (auto) (0.00-0.00) K/mm3 Absolute Neuts (auto) (1.70-7.20) K/mm3 Absolute Nucleated RBC (0.00-0.00) K/mm3 Nucleated RBC % (0-0.0) % Sodium (136-145) mmol/L Potassium (3.5-5.1) mmol/L Chloride (98-108) mmol/L Carbon Dioxide (21-32) mmol/L Anion Gap (4-12) mmol/L BUN (7-18) mg/dL Creatinine (0.55-1.02) mg/dL Estim Creat Clear Calc ml/min Estimated GFR (59 - ) Glucose (70-99) mg/dL Hemoglobin A1c (<5.7) % Calculated Osmolality (285-295) mOsm/kg Calcium (8.5-10.1) mg/dL Magnesium (1.8-2.4) mg/dL Total Bilirubin (0.00-1.00) mg/dL AST (15-37) U/L ALT (14-59) U/L Alkaline Phosphatase (46-116) U/L Troponin I (0.00-60.4) ng/L Total Protein (6.4-8.2) g/dL Albumin (3.4-5.0) g/dL Lipase (16-77) U/L Urine Color Light yellow (Yellow) Urine Appearance Clear (Clear) Urine pH 5.5 (5.0-8.0) Ur Specific [place] >= 1.030 H (1.010-1.020) Urine Protein Negative (Negative) Urine Glucose (UA) Negative (Negative) Urine Ketones Negative (Negative) Ur Blood (Man) Negative (Negative) Urine Nitrate Negative (Negative) Urine Bilirubin Negative (Negative) Urine Urobilinogen 0.2 (0.2-1.0) mg/dL Leukocyte Esterase Rfl Negative (Negative) RAQUEL/UL Urine Opiates Screen Negative (Negative) Urine Methadone Screen Negative (Negative) Ur Barbiturates Screen Negative (Negative) Ur Phencyclidine Scrn Negative (Negative) Ur Amphetamine Screen Negative (Negative) U Benzodiazepines Scrn Negative (Negative) Urine Cocaine Screen Negative (Negative) U Cannabinoids Screen Positive A (Negative) Influenza A (RT-PCR) (Negative) Influenza B (RT-PCR) (Negative) RSV (RT-PCR) (Negative) SARS-CoV-2 RNA (RT-PCR) (Negative) <Satya Gardner MD - Last Filed: 04/13/24 08:04> Discharge Plan Discharge Clinical Impression: Gastroenteritis, Acute dehydration, Acute hypokalemia Nausea & vomiting Qualifiers: Vomiting type: unspecified Qualified Code(s): R11.2 - Nausea with vomiting, unspecified <Paola Vu MD - Last Filed: 04/14/24 18:16> Patient Disposition: [facility] <Paola Vu MD - Last Filed: 04/14/24 18:16> Condition: Stable <Paola Vu MD - Last Filed: 04/14/24 18:16> Time of Disposition: 07:20 <Paola Vu MD - Last Filed: 04/14/24 18:16> 07:20 <Satya Gardner MD - Last Filed: 04/13/24 08:04>
--- NOTE | 2024-04-13 06:00 | PC.NURSE ---
PATIENT INCONTINENT OF BOWEL AND BLADDER. PATIENT CLEANED UP BY MOMO MIRZA. PLACED INTO CLEAN GOWN, DEPENDS AND NEW PAD UNDER HER. WARM BLANKET WAS GIVEN
[2024-04-13] MEDS: ONDANSETRON INJ 4 MG/2 ML VIAL 8 MG IV PUSH (06:01)
[2024-04-13] MEDS: SODIUM CHLORIDE 0.9% IV 1,000 ML 999 ML IV CONT (06:01)
[2024-04-13] MEDS: LORazepam INJ (*CRX) 2 MG/ML VIAL 1 MG IV PUSH (06:01)
--- NOTE | 2024-04-13 06:07 | PC.NURSE ---
LAB AT THE BEDSIDE
--- NOTE | 2024-04-13 06:10 | PC.NURSE ---
PATIENT IS NOW RESTING ON STRETCHER. NOT FLOPPING AROUND ALL OVER THE STRETCHER. RETCHING HAS DECREASED SINCE BEING GIVEN ZOFRAN AND ATIVAN
--- OUTSIDE RECORDS SUMMARY | 2024-04-13 06:18 | XMS_ITS | Patient Health Summary ---
Author Organization [facility] Address [address] [place] [address] Care Team Providers Care Senior Dot Net Developer Name Role Phone Sara Irene APRN-GROUNDMAN/LINEMAN Primary Care Provid er Note from [facility] [place],non-owned Affiliates and Associated Physician Practices is amultiple site organization consisting of ambulatory clinics and hospital sitesin [place], [place], [place] and [place]. This disclosure is being madepursuant to the Care Everywhere program and may not contain all information available regarding this patient. Last updated 17.[facility] Allergies * Codeine(Nausea and/or Vomiting) -Low Criticality [...] propionate (Flonase) 50 MCG/ACT nasal spray(Started 07/06/2022) [place] 1 (one) spray into each nostril once [...] and heating? Not hard at all 04/01/2024 [facility] - Occupational [...] any time in the past 12 m [facility], were you homeless or living in a penitentiary (including now)? No 03/31/2024 Sex and Gender Information Value Date Recorded Sex Assigned at Not on file Gender Identity Not on file Sexual Orientation Not on file Last Filed Vital Signs Vital Sign Reading Time Taken Comments Blood Pressure 142/99 04/03/2024 7:59 AM [facility] Pulse 89 04/03/2024 9:18 AM COMM[facility] HE[facility] WORKER Temperature 36.6 C (97.9 F) 04/03/2024 7:59 AM COMM[facility] WORKER Respiratory Rate 18 04/03/2024 9:18 AM [facility] WORKER Oxygen Saturation 99% 04/03/2024 9:18 AM COMM[facility] WORKER Inhaled Oxygen Concentration 40% 03/31/2024 4 :59 PM COMM[facility] WORKER Weight 73.5 kg (162 lb) 04/02/2024 4:11 AM COMM[facility] WORKER Height 157.5 cm (5' 2 ) 03/31/2024 10:03 AM COMM[facility] WORKER Body Mass Index 29.63 03/31/2024 10:03 AM COMM[facility]ITY [facility] WORKER Procedures * CARDIAC RHYTHM STRIP ORDER(Performed 04/05/2024) [...] * OT EVAL AND TREAT(Performed 03/31/2024) * [place] LARYNGOSCOPY,FLEX FIBER,DIAGNOSTIC(Performed 12/15/2023) Performed for Hoarseness of voice * [place] LARYNGOSCOPY,FLEX FIBER,DIAGNOSTIC(Performed 06/09/2023) Performed for Hoarseness of voice * [place] LARYNGOSCOPY,FLEX FIBER,DIAGNOSTIC(Performed 01/06/2023) Performed for Hoarseness of voice * PATHOLOGY TISSUE(Performed 11/21/2022) Performed for Vocal cord dysplasia * ENDOTRACHEAL TUBE NOTE(Performed 11/21/2022) * ENDOTRACHEAL TUBE NOTE(Performed 11/21/2022) * [place] LARYNGOSCOPY,DIRCT,OP SCOP,EXC TUMR(Performed 11/21/2022) Performed for Vocal cord dysplasia * [place] LARYNGOSCOPY,FLEX FIBER,DIAGNOSTIC(Performed 10/21/2022) Performed for Vocal cord dysplasia * ENDOTRACHEAL TUBE NOTE(Performed 09/21/2022) * PATHOLOGY TISSUE(Performed 09/21/2022) Performed for Leukoplakia of vocal cords * [place] LARYNGOSCOPY,DIRCT,OP SCOP,EXC TUMR(Performed 09/21/2022) Performed for Leukoplakia of vocal cords * [place] LARYNGOSCOPY,FLEX FIBER,DIAGNOSTIC(Performed 09/02/2022) Performed for Hoarseness of voice, Leukoplakia of vocal cords Results * CARDIAC RHYTHM STRIP ORDER (04/05/2024 1:14 AM COMMUNITY [facility]ALTH WORKER) Narrative 04/05/2024 1:14 AM COMM[facility] WORKER Ordered by an unspecified provider. Scanned Document CARDIAC SERVICES ORD ERABLES * (ABNORMAL) GLUCOSE - POINT OF CARE (04/03/2024 7:59 AM COMMUNITY HEALTH WORKER) Only the most recent of11 resultswithin the time period is included. Glucose WB/POC 102(H) 70 - 99 mg/dL 04/03/2024 8:10 AM COMM[facility]ITY HEALTH WORKER [facility] Specimen Type Cap Fingerstick 2024 8:10 AM COMM[facility] HEALTH WORKER [facility] Blood BLOOD SPECIMEN / Unknown 04/03/2024 7:59 AM COMM[facility] WORKER 04/03/2024 8:10 AM COMM[facility] WORKER Elodia Varela MD LAB - POINT OF CARE ORDERABLES [facility] [address] [id number] * (ABNORMAL) BASIC METABOLIC PANEL (CALCIUM TOTAL) (04/03/2024 7:31 AM COMMUNITY HEALTH WORKER) Only the most recent of3 resultswithin the time period is included. [facility] Glucose 113(H) 70 - 99 mg/dL 04/03/2024 8:05 AM [facility] Sodium 139 136 - 145 mmol/L 04/03/2024 8:05 AM [facility] Potassium 4.3 3.5 - 5.1 mmol/L 04/03/2024 8:05 AM [facility] Chloride 107 98 - 107 mmol/L 04/03/2024 8:05 AM [facility] CO2 20(L) 22 - 29 mmol/L 04/03/2024 8:05 AM [facility] Calcium 9.9 8.4 - 10.4 mg/dL 04/03/2024 8:05 AM [facility] Anion Gap 12 6 - 16 mmol/L 04/03/2024 8:05 AM [facility] BUN 28(H) 7 - 26 mg/dL 04/03/2024 8:05 AM [facility] Creatinine 0.80 0.57 - 1.11 mg/dL 04/03/2024 8:05 AM [facility] eGFR by CKD-EPI 83(L) >=90 mL/min/1.7 3 m2 04/03/2024 8:05 AM [facility] Blood BLOOD SPECIMEN / Unknown Lab Venipuncture / Unknown 04/03/2024 7:31 AM [facility] WORKER 04/03/2024 7:37 AM [facility]ER Mariah Chavez PA-C LAB - CHEMISTRY ORDERABLES [facility] [address] [id number] * PHOSPHORUS BLOOD (04/03/2024 7:31 AM COMMUNITY HEALTH WORKER) Only the most recent of2 resultswithin the time period is included. Phosphorus 3.2 2.5 - 4.5 mg/dL 04/03/2024 8:05 AM [facility] Blood BLOOD SPECIMEN / Unknown Lab Venipuncture / Unknown 04/03/2024 7:31 AM [facility] WORKER 04/03/2024 7:37 AM [facility] Mariah Chavez PA-C LAB - CHEMISTRY ORDERABLES [facility] [address] [place] [id number] * MAGNESIUM BLOOD (04/03/2024 7:31 AM COMM[facility]ITY HEALTH WORKER) Only the most recent of2 resultswithin the time period is included. Magnesium 2.1 1.6 - 2.6 mg/dL 04/03/2024 8:05 AM [facility] Blood BLOOD SPECIMEN / Unknown Lab Venipuncture / Unknown 04/03/2024 7:31 AM COMM[facility] WORKER 04/03/2024 7:37 AM [facility] Mariah Chavez PA-C LAB - CHEMISTRY ORDERABLES Performing Organization Address City/[facility]/ZIP Co de Phone Number [facility] [address] [place] [address] * PT-INR (04/03/2024 7:19 AM COMMUNITY HEALTH WORKER) Only the most recent of4 resultswithin the time period is included. PT 13.6 12.1 - 14.8 sec 04/03/2024 7:48 AM [facility] INR 1.0 0.9 - 1.1 04/03/2024 7:48 AM [facility] Blood BLOOD SPECIMEN / Unknown Lab Venipuncture / Unknown 04/03/2024 7:19 AM [facility] WORKER 04/03/2024 7:31 AM COMM[facility] WORKER Narrative [facility] - 04/03/2024 7:48 AM [facility] Conventional Warfarin Anticoagulant Therapy: INR Reference Range: 2.0-3.0 Intensive Warfarin Anticoagulant Therapy: INR Reference Range: 2.5-3.5 Emanuel Simons MD LAB - COAGULA TION ORDERABLES [facility] [address] [id number] * CBC W AUTO DIFFERENTIAL (04/03/2024 7:19 AM [facility]) Only the most recent of4 resultswithin the time period is included. [facility] WBC 7.5 4.0 - 10.7 x10E9/L 04/03/2024 8:02 AM [facility] RBC Count 4.92 3.90 - 5.20 x10E12/L 04/03/2024 8:02 AM [facility] Hemoglobin 14.7 11.9 - 15.8 g/dL 04/03/2024 8:02 AM [facility] Hematocrit 42.5 34.8 - 46.1 % 04/03/2024 8:02 AM [facility] MCV 86.4 80.0 - 98.0 fL 04/03/2024 8:02 AM [facility] MCH 29.9 26.7 - 33.6 pg 04/03/2024 8:02 AM [facility] MCHC 34.6 31.7 - 36.3 g/dL 04/03/2024 8:02 AM [facility] RDW-CV 13.7 11.3 - 14.8 % 04/03/2024 8:02 AM [facility] Platelet Count 209 150 - 420 x10E9/L 04/03/2024 8:02 AM [facility] MPV 11.2 7.8 - 11.4 fL 04/03/2024 8:02 AM [facility] Neutrophil % 64.5 41.0 - 74.0 % 04/03/2024 8:02 AM [facility] Lymphocyte % 26.1 17.0 - 47.0 % 04/03/2024 8:02 AM [facility] Monocyte % 6.6 3.0 - 11.0 % 04/03/2024 8:02 AM [facility] Eosinophil % 1.3 0.0 - 7.0 % 04/03/2024 8:02 AM [facility] Basophil % 1.2 0.0 - 1.6 % 04/03/2024 8:02 AM [facility] Immature Granulocytes % 0.3 0.0 - 1.0 % 04/03/2024 8:02 AM [facility] Neutrophil Absolute 4.82 1.60 - 7.50 x10E9/L 04/03/2024 8:02 AM [facility] Lymphocyte Absolute 1.95 1.00 - 4.40 x10E9/L 04/03/2024 8:02 AM [facility] Monocyte Absolute 0.49 0.15 - 1.00 x10E9/L 04/03/2024 8:02 AM [facility] Eosinophil Absolute 0.10 0.00 - 0.60 x10E9/L 04/03/2024 8:02 AM [facility] Basophil Absolute 0.09 0.00 - 0.13 x10E9/L 04/03/2024 8:02 AM [facility] Blood BLOOD SPECIMEN / Unknown Lab Venipuncture / Unknown 04/03/2024 7:19 AM [facility] WORK[facility] 04/03/2024 7:31 AM [facility] WORKER Emanuel Simons MD LAB - HEMATOL OGY ORDERABLES [facility] [address] [place] [phone] * REJECTED SPUTUM GRAM STAIN (04/02/2024 11:28 AM COMMUNITY HEALTH WORKER) Gram Stain < 25 per low power field Polymorphonuclear cells. Consistent with poor quality specimen. 04/02/2024 3:51 PM [facility] MICRO[facility]OLOG[facility] Gram Stain Recollect if clinically indicated. 04/02/2024 3:51 PM [facility] MICRO[facility]OLOG[facility] Microbiology SPUTUM / Unknown Collection / Unknown 04/02/2024 11:28 AM COMM[facility]ITY HEALTH WORKER 04/02/2024 11:34 AM COMM[facility] HEALTH WORKER Wei Greco MD LAB - MICROBIOLOGY O RDFINA [facility] [address] [place] [address], [facility] [phone] * PROCALCITONIN LEVEL (04/02/2024 5:54 AM COMMUNITY HEALTH WORKER) Only the most recent of2 resultswithin the time period is included. Procalcitonin 0.07 <0.10 ng/mL 04/02/2024 6:56 AM COMM[facility]ALTH WORKER [facility] Blood BLOOD SPECIMEN / Unknown Lab Venipuncture / Unknown 04/02/2024 5:54 AM COMM[facility]ITY HEALTH WORKER 04/02/2024 6:17 AM COMM[facility]ALTH WORKER Narrative [facility] - 04/02/2024 6:56 AM COMM[facility] WORKER The change in procalcitonin (PCT) concentration over [...] Change in Procalcitonin Calculator is available at [email or web address] If clinical picture has not improved and PCT remains high, reevaluate and consider treatment failure or other causes. Rodríguez Benz MD LAB - CHEMISTRY ROSEANNA KEE [facility] [address] [address] * XR Chest 1Vw Portable (04/02/2024 5:40 AM COMM[facility] WORKER) Only the most recent of2 resultswithin the time period is included. Anatomical Region Laterality Modality Chest Radiographic Pattie ging 04/02/2024 7:58 AM COMM[facility]ALTH WORKER Impressions 04/02/2024 8:08 AM COMM[facility]ITY HEALTH WORKER IMPRESSION: Decreased bilateral airspace disease. Edited by Phoebe Rico on 04/02/2024 8:03 AM > Interpreting Provider: Rod Palma MD on 04/02/2024 8:08 AM Narrative 04/02/2024 8:08 AM [facility] WORK[facility] XR CHEST 1VW PORTABLE INDICATION: J96.01: Acute [...] A/B RSV PCR RAPID (04/01/2024 1:24 PM COMM[facility]ITY HEALTH WORKER) COVID-19 PCR Not detected Not detected 04/01/19 2:24 PM [facility] Influenza A PCR Not detected Not detected 04/01/2024 2:24 PM [facility] Influenza B PCR Not detected Not detected 04/01/2024 2:24 PM [facility] RSV PCR Not detected Not detected 04/01/2024 2:24 PM COMM[facility] WORKER [facility] Microbiology SPECIMEN FROM NASOPHARYNGEAL STRUCTURE / Unknown Collection / Unknown 04/01/2024 1:24 PM [facility] WORKER 04/01/2024 1:39 PM [facility] WORKER Narrative [facility] - 04/01/2024 2:24 PM COMM[facility] WORKER This nucleic acid amplification assay has been [...] Varela MD LAB - MICROBIOLOGY O RDERABLES [facility] [address] [address] * ECHO COMPLETE W CONTRAST (04/01/2024 11:34 AM COMMUNITY HEALTH WORKER) AV pk grad 8.2 mmHg [facility] CV [...] Laterality Modality Ultrasound 04/01/2024 11:0 0 AM COMM[facility]ALTH WORKER Narrative 04/01/2024 5:26 PM COMM[facility] HE[facility] WORKER Summary * Normal left ventricular size, global/ [...] 11:00 AM Patient Status: I/P Study Site: [facility] Primary Location: [facility] EStudy Info Technical Quality: Technically Difficult [...] Provider: Tejas Graves Attending Physician: Tejas Graves Implementation Project Manager: Gaby Morales Left Ventricle Normal left ventricular [...] 11:00 AM Patient Status: I/P Study Site: [facility] Primary Location: [facility] EStudy Info Technical Quality: Technically Difficult [...] Provider: Tejas Graves Attending Physician: Tejas Graves Implementation Project Manager: Gaby Mroales Left Ventricle Normal left ventricular size, global/ [...] CCL LEFT HEART CATH (04/01/2024 9:32 AM COMM[facility]ITY HEALTH WORKER) Anatomical Region Laterality Modality X-Ray Angiograph y Narrative 04/01/2024 9:46 AM COMM[facility] WORKER Procedures Moderate sedation Left heart cardiac catheterization, selective coronary angiogram and left ventriculogram Indication-NSTEMI TYPO MACHINE OPERATOR-Chris Conte MD After informed consent was obtained the patient was transferred to the cardiac catheterization laboratory where bilateral groin areas were draped and prepped in sterile fashion. 1% lidocaine was utilized to achieve local anesthesia in the right femoral area. Utilizing Doppler guided ultrasound we accessed the right femoral artery and placed a 6 Welsh sheath without any problems. A 5 Welsh FL4 diagnostic catheter was utilized to cannulate the left main coronary artery and several angiographic views were obtained in different orthogonal planes of the left main LAD and left circumflex arteries. The catheter was exchanged over the wire for a 5 Welsh FR4 and that catheter was utilized to [...] arteriotomy site was closed utilizing a 6 Welsh Angio-Seal device with good hemostasis and no complications Estimated blood loss 30 cc Complications none Sedation Versed 2 mg IV and fentanyl 50 mcg IV Procedure Details Estimated Blood Loss: 30 mL Chris Conte MD CV CARDIAC CATH CUPI D PROCS * HEMOGLOBIN A1C (04/01/2024 7:06 AM COMM[facility] WORK[facility]) Hemoglobin A1c 5.4 <5.7 % 04/01/2024 9:20 AM [facility] Estimated Average Glucose 108 mg/dL 04/01/2024 9:20 AM [facility] Blood BLOOD SPECIMEN / Unknown Lab Venipuncture / Unknown 04/01/2024 7:06 AM COMM[facility] HE[facility] WORKER 04/01/2024 7:17 AM [facility] Narrative [facility] - 04/01/2024 9:20 AM [facility] HbA1c Interpretation: Normal: < 5.7% Pre-diabetes: 5.7-6.4% [...] Graves MD LAB - CHEMISTRY ROSEANNA KEE [facility] [address] [place] [id number] * (ABNORMAL) PTT (04/01/2024 7:06 AM COMMUNITY HEALTH WORKER) Only the most recent of3 resultswithin the time period is included. PTT 71.8(H) 23.0 - 38.4 sec 04/01/2024 7:35 AM COMM[facility] HEALTH WORKER [facility] Blood BLOOD SPECIMEN / Unknown Lab Venipuncture / Unknown 04/01/2024 7:06 AM COMM[facility]ITY HEALTH WORKER 04/01/2024 7:17 AM COMM[facility] WORKER Narrative [facility] - 04/01/2024 7:35 AM COMM[facility]ITY HEALTH WORKER Heparin Therapeutic Range for PTT: 69.0 - 110.0 seconds. Emanuel Simons MD LAB - COAGULA TION ORDERABLES Performing Organization Address [facility] Co de Phone Number [facility] [address] [place] [address] * (ABNORMAL) LIPID PROFILE (04/01/2024 6:41 AM COMMUNITY HEALTH WORKER) Cholesterol 195 <200 mg/dL 04/01/2024 10:41 AM [facility] Triglycerides 272(H) <150 mg/dL 04/01/2024 10:41 AM [facility] HDL Cholesterol 35(L) >40 mg/dL 5 10:41 AM [facility] LDL Calculated 106 <130 mg/dL 04/01/2024 10:41 AM [facility] VLDL Calculated 54(H) <=30 mg/dL 10:41 AM [facility] Chol HDL Ratio 5.6(H) <4.5 04/01/2024 10:41 AM [facility] LDL/HDL Ratio 3.0 <5.0 04/01/2024 10:41 AM [facility] Blood BLOOD SPECIMEN / Unknown Lab Venipuncture / Unknown 04/01/2024 6:41 AM COMM[facility] HEALTH WORKER 04/01/2024 6:46 AM COMM[facility] WORKER Tejas Graves MD LAB - CHEMISTRY ROSEANNA KEE [facility] [address] [place] [address] * (ABNORMAL) TROPONIN-I HIGH SENSITIVE (03/31/2024 3:11 PM COMMUNITY HEALTH WORKER) Only the most recent of2 resultswithin the time period is included. Troponin I High Sensitive 5,189(HH) <=14 ng/L 03/31/2024 4:00 PM [facility] HEALTH WORKER [facility] Blood BLOOD SPECIMEN / Unknown Lab Venipuncture / Unknown 03/31/2024 3:11 PM COMM[facility]ITY HEALTH WORKER 03/31/2024 3:19 PM [facility] WORKER Tejas Graves MD LAB - CHEMISTRY ROSEANNA KEE Performing Organization Address City/[facility]/ZIP Co de Phone Number [facility] [address] [place] [address] * CT Angio Chest Pulm Embolism (03/31/2024 2:32 PM COMMUNITY HEALTH WORKER) Anatomical Region Laterality Modality Chest Computed Tomogra phy 03/31/2024 2:41 PM COMM[facility]ITY HEALTH WORKER Impressions 03/31/2024 2:43 PM COMM[facility]ITY HEALTH WORKER IMPRESSION: 1. No pulmonary embolism. 2. Findings most consistent with congestive heart failure with interstitial and alveolar pulmonary edema and small pleural effusion. Differential includes infection. > Interpreting Provider: Daniele Pino MD on 03/31/2024 2:43 PM Narrative 03/31/2024 2:43 PM [facility] WORK[facility] PROCEDURE: CT ANGIO CHEST PULM EMBOLISM DATE/TIME [...] (ABNORMAL) LACTIC ACID BLOOD (03/31/2024 1:36 PM COMMUNITY HEALTH WORKER) Only the most recent of2 resultswithin the time period is included. Lactic Acid 2.9(H) <=2 mmol/L 03/31/2024 2:07 PM COMM[facility] HEALTH WORKER [facility] Blood BLOOD SPECIMEN / Unknown Lab Venipuncture / Unknown 03/31/2024 1:36 PM COMM[facility]ITY HEALTH WORKER 03/31/2024 1:52 PM COMM[facility] HEALTH WORKER Tejas Graves MD LAB - CHEMISTRY ORDE RABLES Performing Organization Address City/[facility] Co de Phone Number [facility] [address] [place] [phone] * CULTURE BLOOD (03/31/2024 10:28 AM COMMUNITY HEALTH WORKER) Only the most recent of2 resultswithin the time period is included. Pathologist [facility] Culture No growth day 5 ADE 04/05/2024 2:01 PM COMMUNITY HEALTH WORKER [facility] MICROBIOLOG[facility] Blood PERIPHERAL BLOOD / Unknown Lab Venipuncture / Unknown 03/31/2024 10:28 AM COMMUNITY HEALTH WORKER 03/31/2024 10:32 AM COMMUNITY HEALTH WORKER Tejas Graves MD LAB - MICROBIOLOGY O RDERABLES Performing Organization Address [facility] Co de Phone Number [facility]CROBI[facility] [address] [place] [address], [facility] [phone] * ERYTHROCYTE SEDIMENTATION RATE (03/31/2024 10:16 AM COMMUNITY HEALTH WORKER) Erythrocyte Sedimentation Rate Automated 14 0 - 30 MM/HR 03/31/2024 10:36 AM COMMUNITY HEALTH WORKER [facility] Blood BLOOD SPECIMEN / Unknown Lab Venipuncture / Unknown 03/31/2024 10:16 AM COMMUNITY HEALTH WORKER 03/31/2024 10:32 AM COMM[facility] HEALTH WORKER Tejas Graves MD LAB - HEMATOLOGY ORD ERABLES Performing Organization Address City/[facility] Co de Phone Number [facility] [address] [place] [place] [phone] * (ABNORMAL) B-TYPE NATRIURETIC PEPTIDE (03/31/2024 10:16 AM [facility]) BNP 516(H) <=100 pg/mL 03/31/2024 10:55 AM [facility] Blood BLOOD SPECIMEN / Unknown Lab Venipuncture / Unknown 03/31/2024 10:16 AM COMM[facility]ITY HEALTH WORKER 03/31/2024 10:32 AM COMM[facility] HEALTH WORKER Narrative [facility] - 03/31/2024 10:55 AM COMMUNITY HEALTH WORKER A cutoff of 100 pg/mL has been [...] Graves MD LAB - CHEMISTRY ROSEANNA KEE [facility] Organization Address City/State/ZIP Co de Phone Number [facility] [address] [facility] [place] [address] * BLOOD GASES ARTERIAL (03/31/2024 9:29 AM COMMUNITY HEALTH WORKER) Pathologist [facility] pH Arterial 7.44 7.35 - 7.45 pH 03/31/2024 9:33 AM COMMUNITY HEALTH WORKER [facility] RESP THERAPY pO2 Arterial 84 80 - 100 mmHg 03/31/2024 9:33 AM COMM[facility] HEALTH WORK[facility] RESP THERAP[facility] pCO2 Arterial 36 35 - 45 mmHg 03/31/2024 9:33 AM COMM[facility] HEALTH WORK[facility] RESP [facility]ERAP[facility] HCO3 Arterial 24.5 22.0 - 26.0 mmol/L 03/31/2024 9:33 AM COMM[facility] HEALTH WORK[facility] RESP THERAP[facility] BE Arterial 0.6 -2.0 - 2.0 mmol/L 03/31/2024 9:33 AM COMM[facility]ITY HEALTH WORK[facility] RESP [facility]ERAP[facility] O2 Saturation Arterial 99 90 - 100 % 03/31/2024 9:33 AM COMM[facility]ALTH WORK[facility] RESP [facility]ERAP[facility] Temperature (C) 37.0 C 9:33 AM COMM[facility]ITY HEALTH WORKER [facility] RESP THERAPY Galen's Test Positive 03/31/2024 9:33 AM COMMUNITY HEALTH WORK[facility] RESP THERAPY Mode Bipap 03/31/2024 9:33 AM COMM[facility]ITY HEALTH WORK[facility] RESP THERAPY FI O2 40.0 % 03/31/2024 9:33 AM COMM[facility] HEALTH WORK[facility] RESP THERAPY BIPAP Insp Pressure (cmH2O) 10 03/31/2024 9:33 AM COMMUNITY HEALTH WORK[facility] RESP THERAPY BIPAP Exp Pressure (cmH2O) 5 03/31/2024 9:33 AM COMM[facility] HEALTH WORK[facility] RESP THERAPY P/F Ratio 210 03/31/2024 9:33 AM [facility] Blood ARTERIAL BLOOD SPECIMEN / Unknown 03/31/2024 9:29 AM COMMUNITY HEALTH WORKER 03/31/2024 9:29 AM COMMUNITY HEALTH WORKER Tejas Graves MD LAB - BLOOD GASES OR DERABLES Performing Organization Address [facility]/ZIP Co de Phone Number [facility] RESP THERAPY [address] [id number] * TSH REFLEX FREE T4 (03/31/2024 9:25 AM COMMUNITY HEALTH WORKER) TSH 1.568 0.350 - 4.940 uIU/mL 03/31/2024 10:20 AM COMMUNITY HEALTH WORKER [facility] Blood BLOOD SPECIMEN / Unknown Lab Venipuncture / Unknown 03/31/2024 9:25 AM COMMUNITY HEALTH WORKER 03/31/2024 9:30 AM COMMUN[facility] HEALTH WORKER Tejas Graves MD LAB - CHEMISTRY ORDPaul KEE Performing Organization Address City/[facility]/ZIP Co de Phone Number [facility] [address] [address] * (ABNORMAL) C-REACTIVE PROTEIN (03/31/2024 9:25 AM COMMUNITY HEALTH WORKER) C-Reactive Protein 1.35(H) <=0.50 mg/dL 03/31/2024 9:58 AM COMMUNITY HEALTH WORKER [facility] Blood BLOOD SPECIMEN / Unknown Lab Venipuncture / Unknown 03/31/2024 9:25 AM COMMUNITY HEALTH WORKER 03/31/2024 9:30 AM [employer] Tejas Graves MD LAB - CHEMISTRY ROSEANNA KEE [facility] [address] [place] [address] * (ABNORMAL) COMPREHENSIVE METABOLIC PANEL (03/31/2024 9:25 AM [facility]) Glucose 170(H) 70 - 99 mg/dL 03/31/2024 9:47 AM [facility] Sodium 142 136 - 145 mmol/L 03/31/2024 9:47 AM [facility] Potassium 4.0 3.5 - 5.1 mmol/L 03/31/2024 9:47 AM [facility] Chloride 109(H) 98 - 107 mmol/L 03/31/2024 9:47 AM [facility] CO2 21(L) 22 - 29 mmol/L 03/31/2024 9:47 AM [facility] Calcium 9.2 8.4 - 10.4 mg/dL 03/31/2024 9:47 AM [facility] Anion Gap 12 6 - 16 mmol/L 03/31/2024 9:47 AM [facility] BUN 20 7 - 26 mg/dL 03/31/2024 9:47 AM [facility] Creatinine 0.80 0.57 - 1.11 mg/dL 03/31/2024 9:47 AM [facility] Alkaline Phosphatase 120 40 - 150 U/L 03/31/2024 9:47 AM [facility] ALT 21 0 - 55 U/L 03/31/2024 9:47 AM [facility] AST 33 5 - 34 U/L 03/31/2024 9:47 AM [facility] Protein Total 7.0 6.4 - 8.3 gm/dL 03/31/2024 9:47 AM [facility] Albumin 3.6 3.4 - 5.0 gm/dL 03/31/2024 9:47 AM [facility] Bilirubin Total 0.4 0.2 - 1.2 mg/dL 03/31/2024 9:47 AM [facility] eGFR by CKD-EPI 83(L) >=90 mL/min/1.7 3 m2 03/31/2024 9:47 AM [facility] Blood BLOOD SPECIMEN / Unknown Lab Venipuncture / Unknown 03/31/2024 9:25 AM [employer] 03/31/2024 9:30 AM [facility] [employer] Tejas Graves MD LAB - CHEMISTRY ROSEANNA KEE [facility] Organization Address City/State/ZIP Co de Phone Number [facility] [address] [address] * [place] LARYNGOSCOPY,FLEX FIBER,DIAGNOSTIC (12/15/2023 9:29 AM COMMUNITY HEALTH WORKER) Narrative Liang Rob MD - 12/15/2023 9:29 AM COMM[employer]ITY HE[employer] WORKER Liang Rob MD 12/15/2023 9:54 AM Procedure [...] Garcia MD PROCEDURE/MINOR SURG ICAL ORDERABLES * [place] LARYNGOSCOPY,FLEX FIBER,DIAGNOSTIC (06/09/2023 12:52 PM CDT) Narrative [...] Garcia MD PROCEDURE/MINOR SURG ICAL ORDERABLES * [place] LARYNGOSCOPY,FLEX FIBER,DIAGNOSTIC (01/06/2023 11:22 AM COMMUNITY HEALTH WORKER) Narrative Kash Garcia MD - 01/06/2023 11:22 AM COMM[employer] WORKER Kash Garcia MD 01/06/2023 11:23 AM Procedure [...] included. Case Report Surgical Pathology Report Case: [id number] Authorizing Provider: Kash Garcia MD Collected: 11/21/2022 08:14 AM Ordering Location: [facility] Received: 11/21/2022 10:54 AM [...] true vocal fold. 11/25/2022 2:50 PM CDT [facility] Gross Description The requisition and specimen(s) are identified with the patient's name, Arlet Blake. Received in formalin, specimen A , are multiple fragments of granado-brown tissue, 0.2-0.5 cm, 0.5 x 0.3 x 0.2 cm in aggregate. Specimen is submitted in toto in cassette A1. [place] 11/25/2022 2:50 PM CDT [facility] Pathologist Location at [facility] 11/25/2022 2:50 PM CDT [facility] Disclaimer The performance characteristics of all immunohistochemical and indirect immunofluorescence stains (if any) cited in this report were determined by the Histopathology Laboratory of [facility]. Some of these tests were developed by [...] attending (teaching) pathologist. 11/25/2022 2:50 PM T [facility] Embedded Images 11/25/2022 2:50 PM T [facility] Biopsy, Excision BIOPSY OF VOCAL CORD / Unknown 11/21/2022 8:14 AM CDT 11/21/2022 10:54 AM CDT Comment:Pre-op diagnosis: Vocal cord dysplasia Kash Garcia MD LAB - PATHOLOGY/CYTO LOGY ORDERABLES [facility] [address] [place] [address], [facility] [phone] * ETT LINE PERFORMABLE (11/21/2022 8:03 AM CDT) Cedrick Luciano MD - 11/21/2022 8:03 AM CDT Cedrick Reyes MD 11/21/2022 8:03 AM Endotracheal Tube Placement: Patient Location: OR. Intubation Event Date/Time: 11/21/2022 7:48 AM Procedure: intubation (65120). Procedure Section: Sedation: under general anesthesia. Indications [...] Event Date/Time: 11/21/2022 7:38 AM Procedure: intubation (25671). Procedure Section: Sedation: under general anesthesia. Indications [...] Valderrama MD GENERAL ANESTHESIA O RDERABLES * [place] LARYNGOSCOPY,FLEX FIBER,DIAGNOSTIC (10/21/2022 4:30 PM CDT) Narrative [...] Event Date/Time: 09/21/2022 9:16 AM Procedure: intubation (36129). Procedure Section: Sedation: under general anesthesia. Indications [...] AM. Staff Section Anesthesia Provider: Senia Pretty APRN-FELLER SEAM OPERATOR, Performed the procedure Rodger Hooks MD GENERAL ANESTHESIA ORDERABLES * [place] LARYNGOSCOPY,FLEX FIBER,DIAGNOSTIC (09/02/2022 8:51 AM CDT) Narrative Julio Hart MD - 09/02/2022 8:51 AM CDT Julio Hart MD 09/02/2022 9:24 AM Procedure Note Endoscopy Type: Laryngoscopy without stroboscopy 80305 Endoscope: Flexible 4mm Scope Anesthesia: Lidocaine 2% [...] MD PROCEDURE/MINOR SURG ICAL ORDERABLES Care Teams Senior Dot Net Developer Relationship Specialty Start Date End Date Sara Irene, TENDER LABOR-GROUNDMAN/LINEMAN [address] [place] [address] PCP - General Nurse Practitioner Family 7/24/23
--- OUTSIDE RECORDS SUMMARY | 2024-04-13 06:19 | XMS_ITS | Clinical Summary ---
Author Organization [facility] Address [address] [place] [address] Care Team Providers Care Concrete Finisher Name Role Phone Sara Irene APRN-DISH MACHINE OPERATOR Primary Care Provid er Source Comments [facility],non-owned Affiliates and Associated Physician Practices is amultiple site organization consisting of ambulatory clinics and hospital sitesin [place], [place], [place] and [place]. This disclosure is being madepursuant to the Care Everywhere program and may not contain all information available regarding this patient. Last updated 17.[facility] Allergies Active Allergy Reactions Criticality Noted Date [...] fluticasone propionate (Flonase) 50 MCG/ACT nasal spray [place] 1 (one) spray into each nostril [...] Department Care Team Description 04/01/2024 8:30 AM CHILD AND YOUTH PROGRAM ASSISTANT - 04/01/2024 10:00 AM [facility] Surgery [facility] - Cardiac Systems Support Specialist [address] [address] Chris Conte MD Left Heart Cath 03/31/2024 9:06 AM CHILD AND YOUTH PROGRAM ASSISTANT - 04/03/2024 11:42 AM [facility] Hospital Encounter [facility] 5N MEDICAL [address] [address] Juliana Siddiqui MD Sood, MD Nichole Lazaro [...] and heating? Not hard at all 04/01/2024 [facility] - Occupational [...] any time in the past 12 m [facility], were you homeless or living in a long term (including now)? No 03/31/2024 Sex and Gender Information Value Date Recorded Sex Assigned at Not on file Gender Identity Not on file Sexual Orientation Not on file Last Filed Vital Signs Vital Sign Reading Time Taken Comments Blood Pressure 142/99 04/03/2024 7:59 AM CHILD AND YOUTH PROGRAM ASSISTANT Pulse 89 04/03/2024 9:18 AM CHILD AND YOUTH PROGRAM ASSISTANT Temperature 36.6 C (97.9 F) 04/03/2024 7:59 AM CHILD AND YOUTH PROGRAM ASSISTANT Respiratory Rate 18 04/03/2024 9:18 AM CHILD AND YOUTH PROGRAM ASSISTANT Oxygen Saturation 99% 04/03/2024 9:18 AM CHILD AND YOUTH PROGRAM ASSISTANT Inhaled Oxygen Concentration 40% 03/31/2024 4 :59 PM CHILD AND YOUTH PROGRAM ASSISTANT Weight 73.5 kg (162 lb) 04/02/2024 4:11 AM CHILD AND YOUTH PROGRAM ASSISTANT Height 157.5 cm (5' 2 ) 03/31/2024 10:03 AM CHILD AND YOUTH PROGRAM ASSISTANT Body Mass Index 29.63 03/31/2024 10:03 AM CHILD AND YOUTH PROGRAM ASSISTANT Plan of Treatment Upcoming Encounters Date Type Department Care Team (Late st Contact Info) Description 06/14/2024 9:00 AM CDT Office Visit [facility] - ENT [address], [place] [address] Kash Garcia MD [address] [facility] 2[address] [place] [address] Health Maintenance Due Date Last [...] CARDIAC RHYTHM STRIP ORDER 04/05/2024 1:14 AM CHILD AND YOUTH PROGRAM ASSISTANT GLUCOSE - POINT OF CARE Routine 04/03/2024 7:59 AM CHILD AND YOUTH PROGRAM ASSISTANT PHOSPHORUS BLOOD STAT 04/03/2024 7:31 AM CHILD AND YOUTH PROGRAM ASSISTANT MAGNESIUM BLOOD STAT 04/03/2024 7:31 AM CHILD AND YOUTH PROGRAM ASSISTANT BASIC METABOLIC PANEL (CALCIUM TOTAL) STAT 04/03/2024 7:31 AM CHILD AND YOUTH PROGRAM ASSISTANT PT-INR Routine 04/03/2024 7:19 AM CHILD AND YOUTH PROGRAM ASSISTANT CBC W AUTO DIFFERENTIAL Routine 04/03/2024 7:19 AM CHILD AND YOUTH PROGRAM ASSISTANT GLUCOSE - POINT OF CARE Routine 04/02/2024 4:54 PM CHILD AND YOUTH PROGRAM ASSISTANT GLUCOSE - POINT OF CARE Routine 04/02/2024 4:41 PM CHILD AND YOUTH PROGRAM ASSISTANT GLUCOSE - POINT OF CARE Routine 04/02/2024 11:28 AM CHILD AND YOUTH PROGRAM ASSISTANT REJECTED SPUTUM GRAM STAIN Routine 04/02/2024 11:28 AM CHILD AND YOUTH PROGRAM ASSISTANT GLUCOSE - POINT OF CARE Routine 04/02/2024 6:19 AM CHILD AND YOUTH PROGRAM ASSISTANT PROCALCITONIN LEVEL AM Draw 04/02/2024 5 :54 AM CHILD AND YOUTH PROGRAM ASSISTANT BASIC METABOLIC PANEL (CALCIUM TOTAL) AM Draw 04/02/2024 5:54 AM CHILD AND YOUTH PROGRAM ASSISTANT PHOSPHORUS BLOOD AM Draw 04/02/2024 5:54 AM CHILD AND YOUTH PROGRAM ASSISTANT MAGNESIUM BLOOD Routine 04/02/2024 5:54 AM CHILD AND YOUTH PROGRAM ASSISTANT PT-INR Routine 04/02/2024 5:54 AM CHILD AND YOUTH PROGRAM ASSISTANT CBC W AUTO DIFFERENTIAL Routine 04/02/2024 5:54 AM CHILD AND YOUTH PROGRAM ASSISTANT XR CHEST 1VW PORTABLE Routine 04/02/2024 5:40 AM CHILD AND YOUTH PROGRAM ASSISTANT Acute respiratory failure with hypoxia (HCC) GLUCOSE - POINT OF CARE Routine 04/01/2024 8:12 PM CHILD AND YOUTH PROGRAM ASSISTANT GLUCOSE - POINT OF CARE Routine 04/01/2024 4:35 PM CHILD AND YOUTH PROGRAM ASSISTANT SARS-COV-2 (COVID-19) FLU A/B RSV PCR RAPID STAT 04/01/2024 1:24 PM CHILD AND YOUTH PROGRAM ASSISTANT GLUCOSE - POINT OF CARE Routine 04/01/2024 11:54 AM CHILD AND YOUTH PROGRAM ASSISTANT ECHO COMPLETE W CONTRAST Routine 04/01/2024 11:34 AM CHILD AND YOUTH PROGRAM ASSISTANT Sepsis with acute hypoxic respiratory failure, due to unspecified organism, unspecified whether septic shock present (HCC) CCL LEFT HEART CATH Routine 04/01/2024 9 :32 AM CHILD AND YOUTH PROGRAM ASSISTANT PTT Timed 04/01/2024 7:06 AM CHILD AND YOUTH PROGRAM ASSISTANT PT-INR Routine 04/01/2024 7:06 AM CHILD AND YOUTH PROGRAM ASSISTANT HEMOGLOBIN A1C Routine 04/01/2024 7:06 AM CHILD AND YOUTH PROGRAM ASSISTANT CBC W AUTO DIFFERENTIAL AM Draw 04/01/2024 7:06 AM CHILD AND YOUTH PROGRAM ASSISTANT GLUCOSE - POINT OF CARE Routine 04/01/2024 6:41 AM CHILD AND YOUTH PROGRAM ASSISTANT LIPID PROFILE AM Draw 04/01/2024 6:41 AM CHILD AND YOUTH PROGRAM ASSISTANT BASIC METABOLIC PANEL (CALCIUM TOTAL) AM Draw 04/01/2024 6:41 AM CHILD AND YOUTH PROGRAM ASSISTANT PTT Timed 03/31/2024 11:32 PM CHILD AND YOUTH PROGRAM ASSISTANT GLUCOSE - POINT OF CARE Routine 03/31/2024 4:50 PM CHILD AND YOUTH PROGRAM ASSISTANT PTT Routine 03/31/2024 4:39 PM CHILD AND YOUTH PROGRAM ASSISTANT PT-INR Routine 03/31/2024 4:39 PM CHILD AND YOUTH PROGRAM ASSISTANT TROPONIN-I HIGH SENSITIVE Routine 03/31/2024 3:11 PM CHILD AND YOUTH PROGRAM ASSISTANT CT ANGIO CHEST PULM EMBOLISM Routine 03/31/2024 2:32 PM CHILD AND YOUTH PROGRAM ASSISTANT Sepsis with acute hypoxic respiratory failure, due to unspecified organism, unspecified whether septic shock present (HCC) LACTIC ACID BLOOD STAT 03/31/2024 1:3 6 PM CHILD AND YOUTH PROGRAM ASSISTANT TROPONIN-I HIGH SENSITIVE STAT 03/31/2024 12:46 PM CHILD AND YOUTH PROGRAM ASSISTANT GLUCOSE - POINT OF CARE Routine 03/31/2024 12:09 PM CHILD AND YOUTH PROGRAM ASSISTANT CULTURE BLOOD STAT 03/31/2024 10:28 AM CHILD AND YOUTH PROGRAM ASSISTANT ERYTHROCYTE SEDIMENTATION RATE Routine 03/31/2024 10:16 AM CHILD AND YOUTH PROGRAM ASSISTANT PROCALCITONIN LEVEL STAT 03/31/2024 1 0:16 AM CHILD AND YOUTH PROGRAM ASSISTANT B-TYPE NATRIURETIC PEPTIDE STAT 03/31/2024 10:16 AM CHILD AND YOUTH PROGRAM ASSISTANT CULTURE BLOOD STAT 03/31/2024 10:16 AM CHILD AND YOUTH PROGRAM ASSISTANT XR CHEST 1VW PORTABLE Routine 03/31/2024 9:52 AM CHILD AND YOUTH PROGRAM ASSISTANT Sepsis with acute hypoxic respiratory failure, due to unspecified organism, unspecified whether septic shock present (HCC) BLOOD GASES ARTERIAL RT Routine 03/31/2024 9:29 AM CHILD AND YOUTH PROGRAM ASSISTANT C-REACTIVE PROTEIN Routine 03/31/2024 9: 25 AM CHILD AND YOUTH PROGRAM ASSISTANT TSH REFLEX FREE T4 Routine 03/31/2024 9: 25 AM CHILD AND YOUTH PROGRAM ASSISTANT LACTIC ACID BLOOD STAT 03/31/2024 9:2 5 AM CHILD AND YOUTH PROGRAM ASSISTANT COMPREHENSIVE METABOLIC PANEL STAT 03/31/2024 9:25 AM CHILD AND YOUTH PROGRAM ASSISTANT CBC W AUTO DIFFERENTIAL STAT 03/31/2024 9:25 AM CHILD AND YOUTH PROGRAM ASSISTANT PT EVAL AND TREAT Routine 03/31/2024 9:2 3 AM CHILD AND YOUTH PROGRAM ASSISTANT OT EVAL AND TREAT Routine 03/31/2024 9:2 3 AM CHILD AND YOUTH PROGRAM ASSISTANT from Last 3 Months Results * CARDIAC RHYTHM STRIP ORDER (04/05/2024 1:14 AM CHILD AND YOUTH PROGRAM ASSISTANT) Narrative 04/05/2024 1:14 AM CHILD AND YOUTH PROGRAM ASSISTANT Ordered by an unspecified provider. Scanned Document CARDIAC SERVICES ORD ERABLES * (ABNORMAL) GLUCOSE - POINT OF CARE (04/03/2024 7:59 AM CHILD AND YOUTH PROGRAM ASSISTANT) Only the most recent of11 resultswithin the time period is included. Glucose WB/POC 102(H) 70 - 99 mg/dL 04/03/2024 8:10 AM CHILD AND YOUTH PROGRAM ASSISTANT [facility] Specimen Type Cap Fingerstick 2024 8:10 AM CHILD AND YOUTH PROGRAM ASSISTANT [facility] Blood BLOOD SPECIMEN / Unknown 04/03/2024 7:59 AM CHILD AND YOUTH PROGRAM ASSISTANT 04/03/2024 8:10 AM CHILD AND YOUTH PROGRAM ASSISTANT Elodia Varela MD LAB - POINT OF CARE ORDERABLES [facility] [place] [address] * (ABNORMAL) BASIC METABOLIC PANEL (CALCIUM TOTAL) (04/03/2024 7:31 AM CHILD AND YOUTH PROGRAM ASSISTANT) Only the most recent of3 resultswithin the time period is included. Glucose 113(H) 70 - 99 mg/dL 04/03/2024 8:05 AM CHILD AND YOUTH PROGRAM ASSISTANT [facility] Sodium 139 136 - 145 mmol/L 04/03/2024 8:05 AM [facility] Potassium 4.3 3.5 - 5.1 mmol/L 04/03/2024 8:05 AM [facility] Chloride 107 98 - 107 mmol/L 04/03/2024 8:05 AM [facility] CO2 20(L) 22 - 29 mmol/L 04/03/2024 8:05 AM [facility] Calcium 9.9 8.4 - 10.4 mg/dL 04/03/2024 8:05 AM [facility] Anion Gap 12 6 - 16 mmol/L 04/03/2024 8:05 AM [facility] BUN 28(H) 7 - 26 mg/dL 04/03/2024 8:05 AM [facility] Creatinine 0.80 0.57 - 1.11 mg/dL 04/03/2024 8:05 AM [facility] eGFR by CKD-EPI 83(L) >=90 mL/min/1.7 3 m2 04/03/2024 8:05 AM [facility] Blood BLOOD SPECIMEN / Unknown Lab Venipuncture / Unknown 04/03/2024 7:31 AM CHILD AND YOUTH PROGRAM ASSISTANT 04/03/2024 7:37 AM [facility] Mariah Chavez PA-C LAB - CHEMISTRY ORDERABLES [facility] [address] [place] [address] * PHOSPHORUS BLOOD (04/03/2024 7:31 AM [facility]) Only the most recent of2 resultswithin the time period is included. Phosphorus 3.2 2.5 - 4.5 mg/dL 04/03/2024 8:05 AM [facility] Blood BLOOD SPECIMEN / Unknown Lab Venipuncture / Unknown 04/03/2024 7:31 AM CHILD AND YOUTH PROGRAM ASSISTANT 04/03/2024 7:37 AM [facility] Mariah Chavez PA-C LAB - CHEMISTRY ORDERABLES [facility] [place] [id number] * MAGNESIUM BLOOD (04/03/2024 7:31 AM CHILD AND YOUTH PROGRAM ASSISTANT) Only the most recent of2 resultswithin the time period is included. Pathologist [facility] [place] Magnesium 2.1 1.6 - 2.6 mg/dL 04/03/2024 8:05 AM CHILD AND YOUTH PROGRAM ASSISTANT [facility] Blood BLOOD SPECIMEN / Unknown Lab Venipuncture / Unknown 04/03/2024 7:31 AM CHILD AND YOUTH PROGRAM ASSISTANT 04/03/2024 7:37 AM CHILD AND YOUTH PROGRAM ASSISTANT Mariah Chavez PA-C LAB - CHEMISTRY ORDERABLES Performing Organization Address [facility] Co de Phone Number [facility] [place] [address] * PT-INR (04/03/2024 7:19 AM CHILD AND YOUTH PROGRAM ASSISTANT) Only the most recent of4 resultswithin the time period is included. Pathologist [facility] [place] PT 13.6 12.1 - 14.8 sec 04/03/2024 7:48 AM CHILD AND YOUTH PROGRAM ASSISTANT [facility] INR 1.0 0.9 - 1.1 04/03/2024 7:48 AM [facility] Blood BLOOD SPECIMEN / Unknown Lab Venipuncture / Unknown 04/03/2024 7:19 AM CHILD AND YOUTH PROGRAM ASSISTANT 04/03/2024 7:31 AM CHILD AND YOUTH PROGRAM ASSISTANT Narrative [facility] - 04/03/2024 7:48 AM CHILD AND YOUTH PROGRAM ASSISTANT Conventional Warfarin Anticoagulant Therapy: INR Reference Range: 2.0-3.0 Intensive Warfarin Anticoagulant Therapy: INR Reference Range: 2.5-3.5 Emanuel Simons MD LAB - COAGULA TION ORDERABLES Performing Organization Address City/[facility]/ZIP Co de Phone Number [facility] [place] [phone] * CBC W AUTO DIFFERENTIAL (04/03/2024 7:19 AM CHILD AND YOUTH PROGRAM ASSISTANT) Only the most recent of4 resultswithin the time period is included. Pathologist [facility] [place] WBC 7.5 4.0 - 10.7 x10E9/L 04/03/2024 8:02 AM [facility] RBC Count 4.92 3.90 - 5.20 x10E12/L 04/03/2024 8:02 AM [facility] Hemoglobin 14.7 11.9 - 15.8 g/dL 04/03/2024 8:02 AM [facility] Hematocrit 42.5 34.8 - 46.1 % 04/03/2024 8:02 AM [facility] MCV 86.4 80.0 - 98.0 fL 04/03/2024 8:02 AM [facility] MCH 29.9 26.7 - 33.6 pg 04/03/2024 8:02 AM [facility] MCHC 34.6 31.7 - 36.3 g/dL 04/03/2024 8:02 AM [facility] RDW-CV 13.7 11.3 - 14.8 % 04/03/2024 8:02 AM [facility] Platelet Count 209 150 - 420 x10E9/L 04/03/2024 8:02 AM [facility] MPV 11.2 7.8 - 11.4 fL 04/03/2024 8:02 AM [facility] Neutrophil % 64.5 41.0 - 74.0 % 04/03/2024 8:02 AM [facility] Lymphocyte % 26.1 17.0 - 47.0 % 04/03/2024 8:02 AM [facility] Monocyte % 6.6 3.0 - 11.0 % 04/03/2024 8:02 AM [facility] Eosinophil % 1.3 0.0 - 7.0 % 04/03/2024 8:02 AM [facility] Basophil % 1.2 0.0 - 1.6 % 04/03/2024 8:02 AM [facility] Immature Granulocytes % 0.3 0.0 - 1.0 % 04/03/2024 8:02 AM [facility] Neutrophil Absolute 4.82 1.60 - 7.50 x10E9/L 04/03/2024 8:02 AM [facility] Lymphocyte Absolute 1.95 1.00 - 4.40 x10E9/L 04/03/2024 8:02 AM CHILD AND YOUTH PROGRAM ASSISTANT [facility] Monocyte Absolute 0.49 0.15 - 1.00 x10E9/L 04/03/2024 8:02 AM CHILD AND YOUTH PROGRAM ASSISTANT [facility] Eosinophil Absolute 0.10 0.00 - 0.60 x10E9/L 04/03/2024 8:02 AM CHILD AND YOUTH PROGRAM ASSISTANT [facility] Basophil Absolute 0.09 0.00 - 0.13 x10E9/L 04/03/2024 8:02 AM CHILD AND YOUTH PROGRAM ASSISTANT [facility] Blood BLOOD SPECIMEN / Unknown Lab Venipuncture / Unknown 04/03/2024 7:19 AM CHILD AND YOUTH PROGRAM ASSISTANT 04/03/2024 7:31 AM CHILD AND YOUTH PROGRAM ASSISTANT Emanuel Simons MD LAB - HEMATOL OGY ORDERABLES [facility] [address] [place] [address] * REJECTED SPUTUM GRAM STAIN (04/02/2024 11:28 AM CHILD AND YOUTH PROGRAM ASSISTANT) Gram Stain < 25 per low power field Polymorphonuclear cells. Consistent with poor quality specimen. 04/02/2024 3:51 PM CHILD AND YOUTH PROGRAM ASSISTANT [facility] Gram Stain Recollect if clinically indicated. 04/02/2024 3:51 PM [facility] Microbiology SPUTUM / Unknown Collection / Unknown 04/02/2024 11:28 AM CHILD AND YOUTH PROGRAM ASSISTANT 04/02/2024 11:34 AM CHILD AND YOUTH PROGRAM ASSISTANT Wei Greco MD LAB - MICROBIOLOGY O RDERABLES [facility] [address] [place] [address], [facility] [phone] * PROCALCITONIN LEVEL (04/02/2024 5:54 AM CHILD AND YOUTH PROGRAM ASSISTANT) Only the most recent of2 resultswithin the time period is included. Procalcitonin 0.07 <0.10 ng/mL 04/02/2024 6:56 AM CHILD AND YOUTH PROGRAM ASSISTANT [facility] Blood BLOOD SPECIMEN / Unknown Lab Venipuncture / Unknown 04/02/2024 5:54 AM CHILD AND YOUTH PROGRAM ASSISTANT 04/02/2024 6:17 AM CHILD AND YOUTH PROGRAM ASSISTANT Narrative [facility] - 04/02/2024 6:56 AM CHILD AND YOUTH PROGRAM ASSISTANT The change in procalcitonin (PCT) concentration over [...] Change in Procalcitonin Calculator is available at [email or web address] If clinical picture has not improved and PCT remains high, reevaluate and consider treatment failure or other causes. Rodríguez Benz MD [facility] Organization Address City/State/ZIP Co de Phone Number [facility] [address] [place] [address] * XR Chest 1Vw Portable (04/02/2024 5:40 AM CHILD AND YOUTH PROGRAM ASSISTANT) Only the most recent of2 resultswithin the time period is included. Anatomical Region Laterality Modality Chest Radiographic Pattie ging 04/02/2024 7:58 AM CHILD AND YOUTH PROGRAM ASSISTANT Impressions 04/02/2024 8:08 AM CHILD AND YOUTH PROGRAM ASSISTANT IMPRESSION: Decreased bilateral airspace disease. Edited by Phoebe Rico on 04/02/2024 8:03 AM > Interpreting Provider: Rod Palma MD on 04/02/2024 8:08 AM Narrative 04/02/2024 8:08 AM CHILD AND YOUTH PROGRAM ASSISTANT XR CHEST 1VW PORTABLE INDICATION: J96.01: Acute [...] A/B RSV PCR RAPID (04/01/2024 1:24 PM CHILD AND YOUTH PROGRAM ASSISTANT) COVID-19 PCR Not detected Not detected 04/01/19 2:24 PM CHILD AND YOUTH PROGRAM ASSISTANT [facility] Influenza A PCR Not detected Not detected 04/01/2024 2:24 PM CHILD AND YOUTH PROGRAM ASSISTANT [facility] Influenza B PCR Not detected Not detected 04/01/2024 2:24 PM CHILD AND YOUTH PROGRAM ASSISTANT [facility] RSV PCR Not detected Not detected 04/01/2024 2:24 PM CHILD AND YOUTH PROGRAM ASSISTANT [facility] Microbiology SPECIMEN FROM NASOPHARYNGEAL STRUCTURE / Unknown Collection / Unknown 04/01/2024 1:24 PM CHILD AND YOUTH PROGRAM ASSISTANT 04/01/2024 1:39 PM CHILD AND YOUTH PROGRAM ASSISTANT Narrative [facility] - 04/01/2024 2:24 PM CHILD AND YOUTH PROGRAM ASSISTANT This nucleic acid amplification assay has been [...] Varela MD LAB - MICROBIOLOGY O RDERABLES [facility] [address] [address] * ECHO COMPLETE W CONTRAST (04/01/2024 11:34 AM CHILD AND YOUTH PROGRAM ASSISTANT) AV pk grad 8.2 mmHg [facility] CV [...] Laterality Modality Ultrasound 04/01/2024 11:0 0 AM CHILD AND YOUTH PROGRAM ASSISTANT Narrative 04/01/2024 5:26 PM CHILD AND YOUTH PROGRAM ASSISTANT Summary * Normal left ventricular size, global/ [...] 11:00 AM Patient Status: I/P Study Site: [facility] Primary Location: [facility] EStudy Info Technical Quality: Technically Difficult [...] Provider: Tejas Graves Attending Physician: Tejas Graves Supervisor Cereal: Gaby Morales Left Ventricle Normal left ventricular [...] 11:00 AM Patient Status: I/P Study Site: [facility] Primary Location: [facility] EStudy Info Technical Quality: Technically Difficult [...] Provider: Tejas Graves Attending Physician: Tejas Graves Supervisor Cereal: Gaby Morales Left Ventricle Normal left ventricular [...] CCL LEFT HEART CATH (04/01/2024 9:32 AM CHILD AND YOUTH PROGRAM ASSISTANT) Anatomical Region Laterality Modality X-Ray Angiograph y Narrative 04/01/2024 9:46 AM CHILD AND YOUTH PROGRAM ASSISTANT Procedures Moderate sedation Left heart cardiac catheterization, selective coronary angiogram and left ventriculogram Indication-NSTEMI MACHINIST SET UP-Chris Conte MD After informed consent was obtained the patient was transferred to the cardiac catheterization laboratory where bilateral groin areas were draped and prepped in sterile fashion. 1% lidocaine was utilized to achieve local anesthesia in the right femoral area. Utilizing Doppler guided ultrasound we accessed the right femoral artery and placed a 6 Greenlandic sheath without any problems. A 5 Greenlandic FL4 diagnostic catheter was utilized to cannulate the left main coronary artery and several angiographic views were obtained in different orthogonal planes of the left main LAD and left circumflex arteries. The catheter was exchanged over the wire for a 5 Greenlandic FR4 and that catheter was utilized to [...] arteriotomy site was closed utilizing a 6 Greenlandic Angio-Seal device with good hemostasis and no complications Estimated blood loss 30 cc Complications none Sedation Versed 2 mg IV and fentanyl 50 mcg IV Procedure Details Estimated Blood Loss: 30 mL Chris Conte MD CV CARDIAC CATH CUPI D PROCS * HEMOGLOBIN A1C (04/01/2024 7:06 AM CHILD AND YOUTH PROGRAM ASSISTANT) [facility] Signature Hemoglobin A1c 5.4 <5.7 % 04/01/2024 9:20 AM CHILD AND YOUTH PROGRAM ASSISTANT [facility] Estimated Average Glucose 108 mg/dL 04/01/2024 9:20 AM [facility] Blood BLOOD SPECIMEN / Unknown Lab Venipuncture / Unknown 04/01/2024 7:06 AM CHILD AND YOUTH PROGRAM ASSISTANT 04/01/2024 7:17 AM CHILD AND YOUTH PROGRAM ASSISTANT Narrative [facility] - 04/01/2024 9:20 AM CHILD AND YOUTH PROGRAM ASSISTANT HbA1c Interpretation: Normal: < 5.7% Pre-diabetes: 5.7-6.4% [...] Graves MD LAB - CHEMISTRY ROSEANNA KEE [facility] Organization Address City/State/ZIP Co de Phone Number [facility] [address] [place] [address] * (ABNORMAL) PTT (04/01/2024 7:06 AM CHILD AND YOUTH PROGRAM ASSISTANT) Only the most recent of3 resultswithin the time period is included. PTT 71.8(H) 23.0 - 38.4 sec 04/01/2024 7:35 AM [facility] Blood BLOOD SPECIMEN / Unknown Lab Venipuncture / Unknown 04/01/2024 7:06 AM CHILD AND YOUTH PROGRAM ASSISTANT 04/01/2024 7:17 AM CHILD AND YOUTH PROGRAM ASSISTANT Narrative [facility] - 04/01/2024 7:35 AM CHILD AND YOUTH PROGRAM ASSISTANT Heparin Therapeutic Range for PTT: 69.0 - 110.0 seconds. Emanuel Simons MD LAB - COAGULA TION ORDERABLES [facility] [address] [place] [address] * (ABNORMAL) LIPID PROFILE (04/01/2024 6:41 AM CHILD AND YOUTH PROGRAM ASSISTANT) Cholesterol 195 <200 mg/dL 04/01/2024 10:41 AM [facility] Triglycerides 272(H) <150 mg/dL 04/01/2024 10:41 AM [facility] HDL Cholesterol 35(L) >40 mg/dL 10:41 AM [facility] LDL Calculated 106 <130 mg/dL 04/01/2024 10:41 AM [facility] VLDL Calculated 54(H) <=30 mg/dL 10:41 AM [facility] Chol HDL Ratio 5.6(H) <4.5 04/01/2024 10:41 AM [facility] LDL/HDL Ratio 3.0 <5.0 04/01/2024 10:41 AM [facility] Blood BLOOD SPECIMEN / Unknown Lab Venipuncture / Unknown 04/01/2024 6:41 AM CHILD AND YOUTH PROGRAM ASSISTANT 04/01/2024 6:46 AM CHILD AND YOUTH PROGRAM ASSISTANT Tejas Graves MD LAB - CHEMISTRY ROSEANNA KEE Performing Organization Address City/[facility]/ZIP Co de Phone Number [facility] [address] [place] [address] * (ABNORMAL) TROPONIN-I HIGH SENSITIVE (03/31/2024 3:11 PM CHILD AND YOUTH PROGRAM ASSISTANT) Only the most recent of2 resultswithin the time period is included. Troponin I High Sensitive 5,189(HH) <=14 ng/L 03/31/2024 4:00 PM [facility] Blood BLOOD SPECIMEN / Unknown Lab Venipuncture / Unknown 03/31/2024 3:11 PM CHILD AND YOUTH PROGRAM ASSISTANT 03/31/2024 3:19 PM CHILD AND YOUTH PROGRAM ASSISTANT Tejas Graves MD LAB - CHEMISTRY ORDPaul TARYNRORY Liang Organization Address City/State/ZIP Co de Phone Number [facility] [address] [address] * CT Angio Chest Pulm Embolism (03/31/2024 2:32 PM CHILD AND YOUTH PROGRAM ASSISTANT) Anatomical Region Laterality Modality Chest Computed Tomogra phy 03/31/2024 2:41 PM CHILD AND YOUTH PROGRAM ASSISTANT Impressions 03/31/2024 2:43 PM CHILD AND YOUTH PROGRAM ASSISTANT IMPRESSION: 1. No pulmonary embolism. 2. Findings most consistent with congestive heart failure with interstitial and alveolar pulmonary edema and small pleural effusion. Differential includes infection. > Interpreting Provider: Daniele Pino MD on 03/31/2024 2:43 PM Narrative 03/31/2024 2:43 PM CHILD AND YOUTH PROGRAM ASSISTANT PROCEDURE: CT ANGIO CHEST PULM EMBOLISM DATE/TIME [...] (ABNORMAL) LACTIC ACID BLOOD (03/31/2024 1:36 PM CHILD AND YOUTH PROGRAM ASSISTANT) Only the most recent of2 resultswithin the time period is included. Lactic Acid 2.9(H) <=2 mmol/L 03/31/2024 2:07 PM CHILD AND YOUTH PROGRAM ASSISTANT [facility] Blood BLOOD SPECIMEN / Unknown Lab Venipuncture / Unknown 03/31/2024 1:36 PM CHILD AND YOUTH PROGRAM ASSISTANT 03/31/2024 1:52 PM CHILD AND YOUTH PROGRAM ASSISTANT Tejas Graves MD LAB - CHEMISTRY ROSEANNA KEE [facility] Organization Address City/State/ZIP Co de Phone Number [facility] [address] [id number] * CULTURE BLOOD (03/31/2024 10:28 AM CHILD AND YOUTH PROGRAM ASSISTANT) Only the most recent of2 resultswithin the time period is included. Pathologist [facility] [place] Culture No growth day 5 ADE 04/05/2024 2:01 PM CHILD AND YOUTH PROGRAM ASSISTANT [facility] Blood PERIPHERAL BLOOD / Unknown Lab Venipuncture / Unknown 03/31/2024 10:28 AM CHILD AND YOUTH PROGRAM ASSISTANT 03/31/2024 10:32 AM CHILD AND YOUTH PROGRAM ASSISTANT Tejas Graves MD LAB - MICROBIOLOGY O RDERABLES [facility] [address] [place] [address] [phone] * ERYTHROCYTE SEDIMENTATION RATE (03/31/2024 10:16 AM CHILD AND YOUTH PROGRAM ASSISTANT) Pathologist [facility] [place] Erythrocyte Sedimentation Rate Automated 14 0 - 30 MM/HR 03/31/2024 10:36 AM CHILD AND YOUTH PROGRAM ASSISTANT [facility] Blood BLOOD SPECIMEN / Unknown Lab Venipuncture / Unknown 03/31/2024 10:16 AM CHILD AND YOUTH PROGRAM ASSISTANT 03/31/2024 10:32 AM CHILD AND YOUTH PROGRAM ASSISTANT Tejas Graves MD LAB - HEMATOLOGY ORD ERABLES [facility] [address] [place] [address] * (ABNORMAL) B-TYPE NATRIURETIC PEPTIDE (03/31/2024 10:16 AM CHILD AND YOUTH PROGRAM ASSISTANT) Pathologist [facility] [place] BNP 516(H) <=100 pg/mL 03/31/2024 10:55 AM CHILD AND YOUTH PROGRAM ASSISTANT [facility] Blood BLOOD SPECIMEN / Unknown Lab Venipuncture / Unknown 03/31/2024 10:16 AM CHILD AND YOUTH PROGRAM ASSISTANT 03/31/2024 10:32 AM CHILD AND YOUTH PROGRAM ASSISTANT Narrative [facility] - 03/31/2024 10:55 AM CHILD AND YOUTH PROGRAM ASSISTANT A cutoff of 100 pg/mL has been [...] Graves MD LAB - CHEMISTRY ROSEANNA KEE [facility] Organization Address City/State/ZIP Co de Phone Number [facility] [address] [place] [address] * BLOOD GASES ARTERIAL (03/31/2024 9:29 AM CHILD AND YOUTH PROGRAM ASSISTANT) pH Arterial 7.44 7.35 - 7.45 pH 03/31/2024 9:33 AM CHILD AND YOUTH PROGRAM ASSISTANT [facility] pO2 Arterial 84 80 - 100 mmHg 03/31/2024 9:33 AM CHILD AND YOUTH PROGRAM ASSISTANT [facility] pCO2 Arterial 36 35 - 45 mmHg 03/31/2024 9:33 AM CHILD AND YOUTH PROGRAM ASSISTANT [facility] HCO3 Arterial 24.5 22.0 - 26.0 mmol/L 03/31/2024 9:33 AM CHILD AND YOUTH PROGRAM ASSISTANT [facility] BE Arterial 0.6 -2.0 - 2.0 mmol/L 03/31/2024 9:33 AM CHILD AND YOUTH PROGRAM ASSISTANT [facility] O2 Saturation Arterial 99 90 - 100 % 03/31/2024 9:33 AM CHILD AND YOUTH PROGRAM ASSISTANT [facility] Temperature (C) 37.0 C 9:33 AM CHILD AND YOUTH PROGRAM ASSISTANT [facility] Galen's Test Positive 03/31/2024 9:33 AM CHILD AND YOUTH PROGRAM ASSISTANT [facility] Mode Bipap 03/31/2024 9:33 AM CHILD AND YOUTH PROGRAM ASSISTANT [facility] FI O2 40.0 % 03/31/2024 9:33 AM CHILD AND YOUTH PROGRAM ASSISTANT [facility] BIPAP Insp Pressure (cmH2O) 10 03/31/2024 9:33 AM CHILD AND YOUTH PROGRAM ASSISTANT [facility] BIPAP Exp Pressure (cmH2O) 5 03/31/2024 9:33 AM CHILD AND YOUTH PROGRAM ASSISTANT [facility] P/F Ratio 210 03/31/2024 9:33 AM CHILD AND YOUTH PROGRAM ASSISTANT [facility] Blood ARTERIAL BLOOD SPECIMEN / Unknown 03/31/2024 9:29 AM CHILD AND YOUTH PROGRAM ASSISTANT 03/31/2024 9:29 AM CHILD AND YOUTH PROGRAM ASSISTANT Tejas Graves MD LAB - BLOOD GASES OR DERABLES Performing Organization Address [facility]/ZIP Co de Phone Number [facility] [address] [address], [facility] * TSH REFLEX FREE T4 (03/31/2024 9:25 AM CHILD AND YOUTH PROGRAM ASSISTANT) TSH 1.568 0.350 - 4.940 uIU/mL 03/31/2024 10:20 AM CHILD AND YOUTH PROGRAM ASSISTANT [facility] Blood BLOOD SPECIMEN / Unknown Lab Venipuncture / Unknown 03/31/2024 9:25 AM CHILD AND YOUTH PROGRAM ASSISTANT 03/31/2024 9:30 AM CHILD AND YOUTH PROGRAM ASSISTANT Tejas Graves MD LAB - CHEMISTRY ORDE CHILANGO Performing Organization Address [facility] Co de Phone Number [facility] [address] [address] * (ABNORMAL) C-REACTIVE PROTEIN (03/31/2024 9:25 AM CHILD AND YOUTH PROGRAM ASSISTANT) C-Reactive Protein 1.35(H) <=0.50 mg/dL 03/31/2024 9:58 AM CHILD AND YOUTH PROGRAM ASSISTANT [facility] Blood BLOOD SPECIMEN / Unknown Lab Venipuncture / Unknown 03/31/2024 9:25 AM CHILD AND YOUTH PROGRAM ASSISTANT 03/31/2024 9:30 AM CHILD AND YOUTH PROGRAM ASSISTANT Tejas Graves MD LAB - CHEMISTRY ROSEANNA KEE Performing Organization Address [facility]/ZIP Co de Phone Number [facility] [address] [address] * (ABNORMAL) COMPREHENSIVE METABOLIC PANEL (03/31/2024 9:25 AM CHILD AND YOUTH PROGRAM ASSISTANT) Glucose 170(H) 70 - 99 mg/dL 03/31/2024 9:47 AM CHILD AND YOUTH PROGRAM ASSISTANT [facility] Sodium 142 136 - 145 mmol/L 03/31/2024 9:47 AM [facility] Potassium 4.0 3.5 - 5.1 mmol/L 03/31/2024 9:47 AM [facility] Chloride 109(H) 98 - 107 mmol/L 03/31/2024 9:47 AM [facility] CO2 21(L) 22 - 29 mmol/L 03/31/2024 9:47 AM [facility] Calcium 9.2 8.4 - 10.4 mg/dL 03/31/2024 9:47 AM [facility] Anion Gap 12 6 - 16 mmol/L 03/31/2024 9:47 AM [facility] BUN 20 7 - 26 mg/dL 03/31/2024 9:47 AM [facility] Creatinine 0.80 0.57 - 1.11 mg/dL 03/31/2024 9:47 AM [facility] Alkaline Phosphatase 120 40 - 150 U/L 03/31/2024 9:47 AM [facility] ALT 21 0 - 55 U/L 03/31/2024 9:47 AM [facility] AST 33 5 - 34 U/L 03/31/2024 9:47 AM [facility] Protein Total 7.0 6.4 - 8.3 gm/dL 03/31/2024 9:47 AM [facility] Albumin 3.6 3.4 - 5.0 gm/dL 03/31/2024 9:47 AM [facility] Bilirubin Total 0.4 0.2 - 1.2 mg/dL 03/31/2024 9:47 AM [facility] eGFR by CKD-EPI 83(L) >=90 mL/min/1.7 3 m2 03/31/2024 9:47 AM [facility] Blood BLOOD SPECIMEN / Unknown Lab Venipuncture / Unknown 03/31/2024 9:25 AM CHILD AND YOUTH PROGRAM ASSISTANT 03/31/2024 9:30 AM CHILD AND YOUTH PROGRAM ASSISTANT Tejas Graves MD LAB - CHEMISTRY ROSEANNA KEE [facility] [address] [id number] from Last 3 Months Advance Directives * Full Code (Latest Code Status on File) Date Activated Date Inactivated Comments 04/01/2024 9:41 AM 04/03/2024 12:47 PM * Full Code Date Activated Date Inactivated Comments 03/31/2024 9:24 AM 04/01/2024 9:41 AM Care Teams Concrete Finisher Relationship Specialty Start Date End Date Sara Irene, CLEAT MAKER-DISH MACHINE OPERATOR [address] [place] [address] PCP - General Nurse Practitioner Family 08/29/22
--- OUTSIDE RECORDS SUMMARY | 2024-04-13 06:19 | XMS_ITS | Referral Summary ---
Author Organization [facility] Address [address] 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 This disclosure is being madepursuant to the Care Everywhere program and may not contain all information available regarding this patient. Last updated 17.[facility] Encounters Date Type Department Care Team Description 03/31/2024 9:06 AM COLON THERAPIST - 04/03/2024 11:42 AM [facility] Hospital Encounter [facility] [address] [id number] Juliana Siddiqui MD Sood, Anshu, MD Choudhary, Swati, MD Hospitalist Discharge Disposition: Home or Self Care 04/01/2024 8:30 AM COLON THERAPIST - 04/01/2024 10:00 AM [facility] Surgery [facility] - Cardiac Manager [facility] [address] [id number] Chris Conte MD Left Heart Cath 03/31/2024 [...] fluticasone propionate (Flonase) 50 MCG/ACT nasal spray Corona 1 (one) spray into each nostril once [...] and heating? Not hard at all 04/01/2024 [facility] [place] [facility] Occupat ional Health - Occupational Stress [...] were you homeless or living in a fdc (including now)? No 03/31/2024 Sex and Gender Information Value Date Recorded Sex Assigned at Not on file Gender Identity Not on file Sexual Orientation Not on file Last Filed Vital Signs Vital Sign Reading Time Taken Comments Blood Pressure 142/99 04/03/2024 7:59 AM COLON THERAPIST Pulse 89 04/03/2024 9:18 AM COLON THERAPIST Temperature 36.6 C (97.9 F) 04/03/2024 7:59 AM COLON THERAPIST Respiratory Rate 18 04/03/2024 9:18 AM COLON THERAPIST Oxygen Saturation 99% 04/03/2024 9:18 AM COLON THERAPIST Inhaled Oxygen Concentration 40% 03/31/2024 4 :59 PM COLON THERAPIST Weight 73.5 kg (162 lb) 04/02/2024 4:11 AM COLON THERAPIST Height 157.5 cm (5' 2 ) 03/31/2024 10:03 AM COLON THERAPIST Body Mass Index 29.63 03/31/2024 10:03 AM COLON THERAPIST Functional Status Functional Status Response Date of [...] Visit [facility] [address] [facility] [place], [place] [address] Kash Garcia MD [address] [place] [address] Procedures Procedure Name Priority Date/Time Associated Diagnosis Comments CARDIAC RHYTHM STRIP ORDER 04/05/2024 1:14 AM COLON THERAPIST GLUCOSE - POINT OF CARE Routine 04/03/2024 7:59 AM COLON THERAPIST PHOSPHORUS BLOOD STAT 04/03/2024 7:31 AM COLON THERAPIST MAGNESIUM BLOOD STAT 04/03/2024 7:31 AM COLON THERAPIST BASIC METABOLIC PANEL (CALCIUM TOTAL) STAT 04/03/2024 7:31 AM COLON THERAPIST PT-INR Routine 04/03/2024 7:19 AM COLON THERAPIST CBC W AUTO DIFFERENTIAL Routine 04/03/2024 7:19 AM COLON THERAPIST GLUCOSE - POINT OF CARE Routine 04/02/2024 4:54 PM COLON THERAPIST GLUCOSE - POINT OF CARE Routine 04/02/2024 4:41 PM COLON THERAPIST GLUCOSE - POINT OF CARE Routine 04/02/2024 11:28 AM COLON THERAPIST REJECTED SPUTUM GRAM STAIN Routine 04/02/2024 11:28 AM COLON THERAPIST GLUCOSE - POINT OF CARE Routine 04/02/2024 6:19 AM COLON THERAPIST PROCALCITONIN LEVEL AM Draw 04/02/2024 5 :54 AM COLON THERAPIST BASIC METABOLIC PANEL (CALCIUM TOTAL) AM Draw 04/02/2024 5:54 AM COLON THERAPIST PHOSPHORUS BLOOD AM Draw 04/02/2024 5:54 AM COLON THERAPIST MAGNESIUM BLOOD Routine 04/02/2024 5:54 AM COLON THERAPIST PT-INR Routine 04/02/2024 5:54 AM COLON THERAPIST CBC W AUTO DIFFERENTIAL Routine 04/02/2024 5:54 AM COLON THERAPIST XR CHEST 1VW PORTABLE Routine 04/02/2024 5:40 AM COLON THERAPIST Acute respiratory failure with hypoxia (HCC) GLUCOSE - POINT OF CARE Routine 04/01/2024 8:12 PM COLON THERAPIST GLUCOSE - POINT OF CARE Routine 04/01/2024 4:35 PM COLON THERAPIST SARS-COV-2 (COVID-19) FLU A/B RSV PCR RAPID STAT 04/01/2024 1:24 PM COLON THERAPIST GLUCOSE - POINT OF CARE Routine 04/01/2024 11:54 AM COLON THERAPIST ECHO COMPLETE W CONTRAST Routine 04/01/2024 11:34 AM COLON THERAPIST Sepsis with acute hypoxic respiratory failure, due to unspecified organism, unspecified whether septic shock present (HCC) CCL LEFT HEART CATH Routine 04/01/2024 9 :32 AM COLON THERAPIST PTT Timed 04/01/2024 7:06 AM COLON THERAPIST PT-INR Routine 04/01/2024 7:06 AM COLON THERAPIST HEMOGLOBIN A1C Routine 04/01/2024 7:06 AM COLON THERAPIST CBC W AUTO DIFFERENTIAL AM Draw 04/01/2024 7:06 AM COLON THERAPIST GLUCOSE - POINT OF CARE Routine 04/01/2024 6:41 AM COLON THERAPIST LIPID PROFILE AM Draw 04/01/2024 6:41 AM COLON THERAPIST BASIC METABOLIC PANEL (CALCIUM TOTAL) AM Draw 04/01/2024 6:41 AM COLON THERAPIST PTT Timed 03/31/2024 11:32 PM COLON THERAPIST GLUCOSE - POINT OF CARE Routine 03/31/2024 4:50 PM COLON THERAPIST PTT Routine 03/31/2024 4:39 PM COLON THERAPIST PT-INR Routine 03/31/2024 4:39 PM COLON THERAPIST TROPONIN-I HIGH SENSITIVE Routine 03/31/2024 3:[address] ANGIO CHEST PULM EMBOLISM Routine 03/31/2024 2:32 PM COLON THERAPIST Sepsis with acute hypoxic respiratory failure, due to unspecified organism, unspecified whether septic shock present (HCC) LACTIC ACID BLOOD STAT 03/31/2024 1:3 6 PM COLON THERAPIST TROPONIN-I HIGH SENSITIVE STAT 03/31/2024 12:46 PM COLON THERAPIST GLUCOSE - POINT OF CARE Routine 03/31/2024 12:09 PM COLON THERAPIST CULTURE BLOOD STAT 03/31/2024 10:28 AM COLON THERAPIST ERYTHROCYTE SEDIMENTATION RATE Routine 03/31/2024 10:16 AM COLON THERAPIST PROCALCITONIN LEVEL STAT 03/31/2024 1 0:16 AM COLON THERAPIST B-TYPE NATRIURETIC PEPTIDE STAT 03/31/2024 10:16 AM COLON THERAPIST CULTURE BLOOD STAT 03/31/2024 10:16 AM COLON THERAPIST XR CHEST 1VW PORTABLE Routine 03/31/2024 9:52 AM COLON THERAPIST Sepsis with acute hypoxic respiratory failure, due to unspecified organism, unspecified whether septic shock present (HCC) BLOOD GASES ARTERIAL RT Routine 03/31/2024 9:29 AM COLON THERAPIST C-REACTIVE PROTEIN Routine 03/31/2024 9: 25 AM COLON THERAPIST TSH REFLEX FREE T4 Routine 03/31/2024 9: 25 AM COLON THERAPIST LACTIC ACID BLOOD STAT 03/31/2024 9:2 5 AM COLON THERAPIST COMPREHENSIVE METABOLIC PANEL STAT 03/31/2024 9:25 AM COLON THERAPIST CBC W AUTO DIFFERENTIAL STAT 03/31/2024 9:25 AM COLON THERAPIST PT EVAL AND TREAT Routine 03/31/2024 9:2 3 AM COLON THERAPIST OT EVAL AND TREAT Routine 03/31/2024 9:2 3 AM COLON THERAPIST from Last 3 Months Results * CARDIAC RHYTHM STRIP ORDER (04/05/2024 1:14 AM COLON THERAPIST) Narrative 04/05/2024 1:14 AM COLON THERAPIST Ordered by an unspecified provider. Scanned Document CARDIAC SERVICES ORD ERABLES * (ABNORMAL) GLUCOSE - POINT OF CARE (04/03/2024 7:59 AM COLON THERAPIST) Only the most recent of11 resultswithin the time period is included. Glucose WB/POC 102(H) 70 - 99 mg/dL 04/03/2024 8:10 AM COLON THERAPIST [facility] Specimen Type Cap Fingerstick 2024 8:10 AM COLON THERAPIST [facility] Blood BLOOD SPECIMEN / Unknown 04/03/2024 7:59 AM COLON THERAPIST 04/03/2024 8:10 AM COLON THERAPIST Elodia Varela MD LAB - POINT OF CARE ORDERABLES [facility] [address] [address] * (ABNORMAL) BASIC METABOLIC PANEL (CALCIUM TOTAL) (04/03/2024 7:31 AM COLON THERAPIST) Only the most recent of3 resultswithin the time period is included. Pathologist [facility] Glucose 113(H) 70 - 99 mg/dL 04/03/2024 8:[address] [facility] Sodium 139 136 - 145 mmol/L 04/03/2024 8:[address] [facility] Potassium 4.3 3.5 - 5.1 mmol/L 04/03/2024 8:[address] [facility] Chloride 107 98 - 107 mmol/L 04/03/2024 8:[address] [facility] CO2 20(L) 22 - 29 mmol/L 04/03/2024 8:[address] [facility] Calcium 9.9 8.4 - 10.4 mg/dL 04/03/2024 8:[address] [facility] Anion Gap 12 6 - 16 mmol/L 04/03/2024 8:[address] [facility] BUN 28(H) 7 - 26 mg/dL 04/03/2024 8:[address] [facility] Creatinine 0.80 0.57 - 1.11 mg/dL 04/03/2024 8:[address] [facility] eGFR by CKD-EPI 83(L) >=90 mL/min/1.7 3 m2 04/03/2024 8:[address] [facility] Blood BLOOD SPECIMEN / Unknown Lab Venipuncture / Unknown 04/03/2024 7:31 AM COLON THERAPIST 04/03/2024 7:37 AM COLON THERAPIST Mariah Chavez PA-C LAB - CHEMISTRY ORDERABLES [facility] [address] [id number] * PHOSPHORUS BLOOD (04/03/2024 7:31 AM COLON THERAPIST) Only the most recent of2 resultswithin the time period is included. Phosphorus 3.2 2.5 - 4.5 mg/dL 04/03/2024 8:[address] [facility] Blood BLOOD SPECIMEN / Unknown Lab Venipuncture / Unknown 04/03/2024 7:31 AM COLON THERAPIST 04/03/2024 7:37 AM COLON THERAPIST Mariah Chavez PA-C LAB - CHEMISTRY ORDERABLES Performing Organization Address [facility] Co de Phone Number [facility] [address] [place] [address] * MAGNESIUM BLOOD (04/03/2024 7:31 AM COLON THERAPIST) Only the most recent of2 resultswithin the time period is included. Magnesium 2.1 1.6 - 2.6 mg/dL 04/03/2024 8:[address] [facility] Blood BLOOD SPECIMEN / Unknown Lab Venipuncture / Unknown 04/03/2024 7:31 AM COLON THERAPIST 04/03/2024 7:37 AM COLON THERAPIST Mariah Chavez PA-C LAB - CHEMISTRY ORDERABLES Performing Organization Address [facility] de Phone Number [facility] [address] [place] [id number] * PT-INR (04/03/2024 7:19 AM COLON THERAPIST) Only the most recent of4 resultswithin the time period is included. PT 13.6 12.1 - 14.8 sec 04/03/2024 7:[address] [facility] INR 1.0 0.9 - 1.1 04/03/2024 7:[address] [facility] Blood BLOOD SPECIMEN / Unknown Lab Venipuncture / Unknown 04/03/2024 7:19 AM COLON THERAPIST 04/03/2024 7:31 AM COLON THERAPIST Narrative [facility] - 04/03/2024 7:48 AM COLON THERAPIST Conventional Warfarin Anticoagulant Therapy: INR Reference Range: 2.0-3.0 Intensive Warfarin Anticoagulant Therapy: INR Reference Range: 2.5-3.5 Emanuel Simons MD LAB - COAGULA TION ORDERABLES [facility] [address] [address] * CBC W AUTO DIFFERENTIAL (04/03/2024 7:19 AM [facility]) Only the most recent of4 resultswithin the time period is included. WBC 7.5 4.0 - 10.7 x10E9/L 04/03/2024 8:[address] [facility] RBC Count 4.92 3.90 - 5.20 x10E12/L 04/03/2024 8:[address] [facility] Hemoglobin 14.7 11.9 - 15.8 g/dL 04/03/2024 8:[address] [facility] Hematocrit 42.5 34.8 - 46.1 % 04/03/2024 8:[address] [facility] MCV 86.4 80.0 - 98.0 fL 04/03/2024 8:[address] [facility] MCH 29.9 26.7 - 33.6 pg 04/03/2024 8:[address] [facility] MCHC 34.6 31.7 - 36.3 g/dL 04/03/2024 8:[address] [facility] RDW-CV 13.7 11.3 - 14.8 % 04/03/2024 8:[address] [facility] Platelet Count 209 150 - 420 x10E9/L 04/03/2024 8:[address] [facility] MPV 11.2 7.8 - 11.4 fL 04/03/2024 8:[address] [facility] Neutrophil % 64.5 41.0 - 74.0 % 04/03/2024 8:[address] [facility] Lymphocyte % 26.1 17.0 - 47.0 % 04/03/2024 8:[address] [facility] Monocyte % 6.6 3.0 - 11.0 % 04/03/2024 8:[address] [facility] Eosinophil % 1.3 0.0 - 7.0 % 04/03/2024 8:[address] [facility] Basophil % 1.2 0.0 - 1.6 % 04/03/2024 8:[address] [facility] Immature Granulocytes % 0.3 0.0 - 1.0 % 04/03/2024 8:[address] [facility] Neutrophil Absolute 4.82 1.60 - 7.50 x10E9/L 04/03/2024 8:[address] [facility] Lymphocyte Absolute 1.95 1.00 - 4.40 x10E9/L 04/03/2024 8:[address] [facility] Monocyte Absolute 0.49 0.15 - 1.00 x10E9/L 04/03/2024 8:[address] [facility] Eosinophil Absolute 0.10 0.00 - 0.60 x10E9/L 04/03/2024 8:[address] [facility] Basophil Absolute 0.09 0.00 - 0.13 x10E9/L 04/03/2024 8:[address] [facility] Blood BLOOD SPECIMEN / Unknown Lab Venipuncture / Unknown 04/03/2024 7:19 AM COLON THERAPIST 04/03/2024 7:31 AM COLON THERAPIST Emanuel Simons MD LAB - HEMATOL OGY ORDERABLES [facility] [address] [place] [address] * REJECTED SPUTUM GRAM STAIN (04/02/2024 11:28 AM COLON THERAPIST) Gram Stain < 25 per low power field Polymorphonuclear cells. Consistent with poor quality specimen. 04/02/2024 3:51 PM COLON THERAPIST [facility] MICROBIOLOGY Gram Stain Recollect if clinically indicated. 04/02/2024 3:51 PM COLON THERAPIST [facility] MICROBIOLOGY Microbiology SPUTUM / Unknown Collection / Unknown 04/02/2024 11:28 AM COLON THERAPIST 04/02/2024 11:34 AM COLON THERAPIST Wei Greco MD LAB - MICROBIOLOGY O RDERABLES [facility] MICROBIOLOGY [address] [address] [phone] * PROCALCITONIN LEVEL (04/02/2024 5:54 AM COLON THERAPIST) Only the most recent of2 resultswithin the time period is included. Procalcitonin 0.07 <0.10 ng/mL 04/02/2024 6:56 AM COLON THERAPIST [facility] Blood BLOOD SPECIMEN / Unknown Lab Venipuncture / Unknown 04/02/2024 5:54 AM COLON THERAPIST 04/02/2024 6:17 AM COLON THERAPIST Narrative [facility] - 04/02/2024 6:56 AM COLON THERAPIST The change in procalcitonin (PCT) concentration over [...] Change in Procalcitonin Calculator is available at [email or web address] Inter[employer] If clinical picture has not improved and PCT remains high, reevaluate and consider treatment failure or other causes. Rodríguez Benz MD LAB - CHEMISTRY ROSEANNA KEE [facility] Organization Address City/State/ZIP Co de Phone Number [facility] [address] [address] * XR Chest 1Vw Portable (04/02/2024 5:40 AM COLON THERAPIST) Only the most recent of2 resultswithin the time period is included. Anatomical Region Laterality Modality Chest Radiographic Pattie ging 04/02/2024 7:58 AM COLON THERAPIST Impressions 04/02/2024 8:08 AM COLON THERAPIST IMPRESSION: Decreased bilateral airspace disease. Edited by Phoebe Rico on 04/02/2024 8:03 AM > Interpreting Provider: Rod Palma MD on 04/02/2024 8:08 AM Narrative 04/02/2024 8:08 AM COLON THERAPIST XR CHEST 1VW PORTABLE INDICATION: J96.01: Acute [...] A/B RSV PCR RAPID (04/01/2024 1:24 PM COLON THERAPIST) COVID-19 PCR Not detected Not detected 04/01/19 2:24 PM COLON THERAPIST [facility] Influenza A PCR Not detected Not detected 04/01/2024 2:24 PM COLON THERAPIST [facility] Influenza B PCR Not detected Not detected 04/01/2024 2:24 PM COLON THERAPIST [facility] RSV PCR Not detected Not detected 04/01/2024 2:24 PM COLON THERAPIST [facility] Microbiology SPECIMEN FROM NASOPHARYNGEAL STRUCTURE / Unknown Collection / Unknown 04/01/2024 1:24 PM COLON THERAPIST 04/01/2024 1:39 PM COLON THERAPIST Narrative [facility] - 04/01/2024 2:24 PM COLON THERAPIST This nucleic acid amplification assay has been [...] Varela MD LAB - MICROBIOLOGY O RDERABLES [facility] [address] [address] * ECHO COMPLETE W CONTRAST (04/01/2024 11:34 AM COLON THERAPIST) AV pk grad 8.2 mmHg [facility] CV [...] Laterality Modality Ultrasound 04/01/2024 11:0 0 AM COLON THERAPIST Narrative 04/01/2024 5:26 PM COLON THERAPIST Summary * Normal left ventricular size, global/ [...] 11:00 AM Patient Status: I/P Study Site: [facility] Primary Location: [facility] EStudy Info Technical Quality: Technically Difficult Exam [...] Provider: Tejas Graves Attending Physician: Tejas Graves Clinical Secretary: Gaby Morales Left Ventricle Normal left ventricular [...] 11:00 AM Patient Status: I/P Study Site: [facility] Primary Location: [facility] EStudy Info Technical Quality: Technically Difficult Exam [...] Provider: Tejas Graves Attending Physician: Tejas Graves Clinical Secretary: Gaby Andrew Left Ventricle Normal left ventricular [...] CCL LEFT HEART CATH (04/01/2024 9:32 AM COLON THERAPIST) Anatomical Region Laterality Modality X-Ray Angiograph y Narrative 04/01/2024 9:46 AM COLON THERAPIST Procedures Moderate sedation Left heart cardiac catheterization, selective coronary angiogram and left ventriculogram Indication-NSTEMI OUTBOUND SALES REPRESENTATIVE-Chris Conte MD After informed consent was obtained the patient was transferred to the cardiac catheterization laboratory where bilateral groin areas were draped and prepped in sterile fashion. 1% lidocaine was utilized to achieve local anesthesia in the right femoral area. Utilizing Doppler guided ultrasound we accessed the right femoral artery and placed a 6 Turkish sheath without any problems. A 5 Turkish FL4 diagnostic catheter was utilized to cannulate the left main coronary artery and several angiographic views were obtained in different orthogonal planes of the left main LAD and left circumflex arteries. The catheter was exchanged over the wire for a 5 Turkish FR4 and that catheter was utilized to [...] arteriotomy site was closed utilizing a 6 Turkish Angio-Seal device with good hemostasis and no complications Estimated blood loss 30 cc Complications none Sedation Versed 2 mg IV and fentanyl 50 mcg IV Procedure Details Estimated Blood Loss: 30 mL Chris Conte MD CV CARDIAC CATH CUPI D PROCS * HEMOGLOBIN A1C (04/01/2024 7:06 AM COLON THERAPIST) Hemoglobin A1c 5.4 <5.7 % 04/01/2024 9:[address] [facility] Estimated Average Glucose 108 mg/dL 04/01/2024 9:[address] [facility] Blood BLOOD SPECIMEN / Unknown Lab Venipuncture / Unknown 04/01/2024 7:06 AM COLON THERAPIST 04/01/2024 7:17 AM COLON THERAPIST Narrative [facility] - 04/01/2024 9:20 AM COLON THERAPIST HbA1c Interpretation: Normal: < 5.7% Pre-diabetes: 5.7-6.4% [...] Organization Address City/State/ZIP Co de Phone Number [facility] [address] [place] [address] * (ABNORMAL) PTT (04/01/2024 7:06 AM COLON THERAPIST) Only the most recent of3 resultswithin the time period is included. PTT 71.8(H) 23.0 - 38.4 sec 04/01/2024 7:35 AM COLON THERAPIST [facility] Blood BLOOD SPECIMEN / Unknown Lab Venipuncture / Unknown 04/01/2024 7:06 AM COLON THERAPIST 04/01/2024 7:17 AM COLON THERAPIST Narrative [facility] - 04/01/2024 7:35 AM COLON THERAPIST Heparin Therapeutic Range for PTT: 69.0 - 110.0 seconds. Emanuel Simons MD LAB - COAGULA TION ORDERABLES Performing Organization Address City/[facility]/ZIP Co de Phone Number [facility] [address] [place] [address] * (ABNORMAL) LIPID PROFILE (04/01/2024 6:41 AM COLON THERAPIST) Cholesterol 195 <200 mg/dL 04/01/2024 10:41 AM [facility] Triglycerides 272(H) <150 mg/dL 04/01/2024 10:41 AM [facility] HDL Cholesterol 35(L) >40 mg/dL 10:41 AM [facility] LDL Calculated 106 <130 mg/dL 04/01/2024 10:41 AM [facility] VLDL Calculated 54(H) <=30 mg/dL 10:41 AM [facility] Chol HDL Ratio 5.6(H) <4.5 04/01/2024 10:41 AM [facility] LDL/HDL Ratio 3.0 <5.0 04/01/2024 10:41 AM [facility] Blood BLOOD SPECIMEN / Unknown Lab Venipuncture / Unknown 04/01/2024 6:41 AM COLON THERAPIST 04/01/2024 6:46 AM COLON THERAPIST Tejas Graves MD LAB - CHEMISTRY ROSEANNA KEE [facility] [address] [place] [address] * (ABNORMAL) TROPONIN-I HIGH SENSITIVE (03/31/2024 3:11 PM COLON THERAPIST) Only the most recent of2 resultswithin the time period is included. Troponin I High Sensitive 5,189(HH) <=14 ng/L 03/31/2024 4:00 PM COLON THERAPIST [facility] Blood BLOOD SPECIMEN / Unknown Lab Venipuncture / Unknown 03/31/2024 3:11 PM COLON THERAPIST 03/31/2024 3:19 PM COLON THERAPIST Tejas Graves MD LAB - CHEMISTRY SHIVANIE CHILANGO [facility] Organization Address City/State/ZIP Co de Phone Number [facility] [address] [place] [address] * CT Angio Chest Pulm Embolism (03/31/2024 2:32 PM COLON THERAPIST) Anatomical Region Laterality Modality Chest Computed Tomogra phy 03/31/2024 2:41 PM COLON THERAPIST Impressions 03/31/2024 2:43 PM COLON THERAPIST IMPRESSION: 1. No pulmonary embolism. 2. Findings most consistent with congestive heart failure with interstitial and alveolar pulmonary edema and small pleural effusion. Differential includes infection. > Interpreting Provider: Daniele Pino MD on 03/31/2024 2:43 PM Narrative 03/31/2024 2:43 PM COLON THERAPIST PROCEDURE: CT ANGIO CHEST PULM EMBOLISM DATE/TIME [...] (ABNORMAL) LACTIC ACID BLOOD (03/31/2024 1:36 PM COLON THERAPIST) Only the most recent of2 resultswithin the time period is included. Pathologist [facility] Lactic Acid 2.9(H) <=2 mmol/L 03/31/2024 2:07 PM COLON THERAPIST [facility] Blood BLOOD SPECIMEN / Unknown Lab Venipuncture / Unknown 03/31/2024 1:36 PM COLON THERAPIST 03/31/2024 1:52 PM COLON THERAPIST Tejas Graves MD LAB - CHEMISTRY ROSEANNA KEE Performing Organization Address [facility]/ZIP Co de Phone Number [facility] [address] [place] [address] * CULTURE BLOOD (03/31/2024 10:28 AM COLON THERAPIST) Only the most recent of2 resultswithin the time period is included. Pathologist [facility] Culture No growth day 5 ADE 04/05/2024 2:01 PM COLON THERAPIST [facility] Blood PERIPHERAL BLOOD / Unknown Lab Venipuncture / Unknown 03/31/2024 10:28 AM COLON THERAPIST 03/31/2024 10:32 AM COLON THERAPIST Tejas Graves MD LAB - MICROBIOLOGY O RDERABLES Performing Organization Address [facility] Co de Phone Number [facility] [address] [place] [address] [phone] * ERYTHROCYTE SEDIMENTATION RATE (03/31/2024 10:16 AM COLON THERAPIST) Pathologist [facility] Erythrocyte Sedimentation Rate Automated 14 0 - 30 MM/HR 03/31/2024 10:36 AM COLON THERAPIST [facility] Blood BLOOD SPECIMEN / Unknown Lab Venipuncture / Unknown 03/31/2024 10:16 AM COLON THERAPIST 03/31/2024 10:32 AM COLON THERAPIST Tejas Graves MD LAB - HEMATOLOGY ORD ERABLES Performing Organization Address [facility] Co de Phone Number [facility] [address], [place] [id number] * (ABNORMAL) B-TYPE NATRIURETIC PEPTIDE (03/31/2024 10:16 AM COLON THERAPIST) Pathologist [facility] BNP 516(H) <=100 pg/mL 03/31/2024 10:[address] [facility] Blood BLOOD SPECIMEN / Unknown Lab Venipuncture / Unknown 03/31/2024 10:16 AM COLON THERAPIST 03/31/2024 10:32 AM COLON THERAPIST [facility] LABORATORY - 03/31/2024 10:55 AM COLON THERAPIST A cutoff of 100 pg/mL has been [...] Graves MD LAB - CHEMISTRY ROSEANNA KEE [facility] Organization Address City/State/ZIP Co de Phone Number [facility] [address] [facility] [place] [address] * BLOOD GASES ARTERIAL (03/31/2024 9:29 AM COLON THERAPIST) pH Arterial 7.44 7.35 - 7.45 pH 03/31/2024 9:33 AM COLON THERAPIST [facility] RESP THERAPY pO2 Arterial 84 80 - 100 mmHg 03/31/2024 9:33 AM COLON THERAPIST [facility] RESP THERAPY pCO2 Arterial 36 35 - 45 mmHg 03/31/2024 9:33 AM COLON THERAPIST [facility] RESP THERAPY HCO3 Arterial 24.5 22.0 - 26.0 mmol/L 03/31/2024 9:33 AM COLON THERAPIST [facility] RESP THERAPY BE Arterial 0.6 -2.0 - 2.0 mmol/L 03/31/2024 9:33 AM COLON THERAPIST [facility] RESP THERAPY O2 Saturation Arterial 99 90 - 100 % 03/31/2024 9:33 AM COLON THERAPIST [facility] RESP THERAPY Temperature (C) 37.0 C 9:33 AM COLON THERAPIST [facility] RESP THERAPY Galen's Test Positive 03/31/2024 9:33 AM COLON THERAPIST [facility] RESP THERAPY Mode Bipap 03/31/2024 9:33 AM COLON THERAPIST [facility] RESP THERAPY FI O2 40.0 % 03/31/2024 9:33 AM COLON THERAPIST [facility] RESP THERAPY BIPAP Insp Pressure (cmH2O) 10 03/31/2024 9:33 AM COLON THERAPIST [facility] RESP THERAPY BIPAP Exp Pressure (cmH2O) 5 03/31/2024 9:33 AM COLON THERAPIST [facility] RESP THERAPY P/F Ratio 210 03/31/2024 9:33 AM COLON THERAPIST [facility] RESP THERAPY Blood ARTERIAL BLOOD SPECIMEN / Unknown 03/31/2024 9:29 AM COLON THERAPIST 03/31/2024 9:29 AM COLON THERAPIST Tejas Graves MD LAB - BLOOD GASES OR DERABLES Performing Organization Address City/[facility]/ZIP Co de Phone Number [facility] RESP THERAPY [address] [address], [facility] * TSH REFLEX FREE T4 (03/31/2024 9:25 AM COLON THERAPIST) TSH 1.568 0.350 - 4.940 uIU/mL 03/31/2024 10:20 AM COLON THERAPIST [facility] Blood BLOOD SPECIMEN / Unknown Lab Venipuncture / Unknown 03/31/2024 9:25 AM COLON THERAPIST 03/31/2024 9:30 AM COLON THERAPIST Tejas Graves MD LAB - CHEMISTRY RSOEANNA KEE Performing Organization Address [facility] Co de Phone Number [facility] [address] [address] * (ABNORMAL) C-REACTIVE PROTEIN (03/31/2024 9:25 AM COLON THERAPIST) C-Reactive Protein 1.35(H) <=0.50 mg/dL 03/31/2024 9:58 AM COLON THERAPIST [facility] Blood BLOOD SPECIMEN / Unknown Lab Venipuncture / Unknown 03/31/2024 9:25 AM COLON THERAPIST 03/31/2024 9:30 AM COLON THERAPIST Tejas Graves MD LAB - CHEMISTRY ORDPaul KEE Performing Organization Address City/[facility]/ZIP Co de Phone Number [facility] [address] [address] * (ABNORMAL) COMPREHENSIVE METABOLIC PANEL (03/31/2024 9:25 AM [facility]) Glucose 170(H) 70 - 99 mg/dL 03/31/2024 9:[address] [facility] Sodium 142 136 - 145 mmol/L 03/31/2024 9:[address] [facility] Potassium 4.0 3.5 - 5.1 mmol/L 03/31/2024 9:[address] [facility] Chloride 109(H) 98 - 107 mmol/L 03/31/2024 9:[address] [facility] CO2 21(L) 22 - 29 mmol/L 03/31/2024 9:[address] [facility] Calcium 9.2 8.4 - 10.4 mg/dL 03/31/2024 9:[address] [facility] Anion Gap 12 6 - 16 mmol/L 03/31/2024 9:[address] [facility] BUN 20 7 - 26 mg/dL 03/31/2024 9:[address] [facility] Creatinine 0.80 0.57 - 1.11 mg/dL 03/31/2024 9:[address] [facility] Alkaline Phosphatase 120 40 - 150 U/L 03/31/2024 9:[address] [facility] ALT 21 0 - 55 U/L 03/31/2024 9:[address] [facility] AST 33 5 - 34 U/L 03/31/2024 9:[address] [facility] Protein Total 7.0 6.4 - 8.3 gm/dL 03/31/2024 9:[address] [facility] Albumin 3.6 3.4 - 5.0 gm/dL 03/31/2024 9:[address] [facility] Bilirubin Total 0.4 0.2 - 1.2 mg/dL 03/31/2024 9:[address] [facility] eGFR by CKD-EPI 83(L) >=90 mL/min/1.7 3 m2 03/31/2024 9:[address] [facility] Blood BLOOD SPECIMEN / Unknown Lab Venipuncture / Unknown 03/31/2024 9:25 AM [facility] 03/31/2024 9:30 AM COLON THERAPIST Tejas Graves MD LAB - CHEMISTRY ROSEANNA KEE [facility] [address] [address] from Last 3 Months Advance Directives * Full Code (Latest Code Status on File) Date Activated Date Inactivated Comments 04/01/2024 9:41 AM 04/03/2024 12:47 PM * Full Code Date Activated Date Inactivated Comments 03/31/2024 9:24 AM 04/01/2024 9:41 AM Care Teams Automotive Painter Relationship Specialty Start Date End Date Sara Irene, NETWORK RELAY TESTER-SENIOR SECURITY ANALYST [address] [place] [address] PCP - General Nurse Practitioner Family 08/29/22
[2024-04-13 06:23] LABS: Basophils Absolute Auto 0.08 K/mm3 (0.00-0.10); Basophils Percent Auto 0.5 % (0.0-1.0); Eosinophils Absolute Auto 0.12 K/mm3 (0.02-0.50); Eosinophils Percent Auto 0.8 % (1.0-6.0); Hematocrit 40.9 % (35.0-49.0); Hemoglobin 13.5 g/dL (12.0-15.0); Immature Granulocyte Percent A 0.7 % (0.0-0.0); Lymphocytes Absolute Auto 1.01 K/mm3 (1.10-4.50); Lymphocytes Percent Auto 6.6 % (18.0-42.0); Mean Corpuscular Hemoglobin 29.7 pg (27.0-31.0); Mean Corpuscular Volume 89.9 fL (78.0-102.0); Monocytes Absolute Auto 0.58 K/mm3 (0.10-0.90); Monocytes Percent Auto 3.8 % (2.0-11.0); Neutrophils Absolute Auto 13.39 K/mm3 (1.70-7.20); Neutrophils Percent Auto 87.6 % (50.0-70.0); Platelet Count Result 227 K/mm3 (150-420); Red Blood Count 4.55 M/mm3 (4.20-5.40); Red Cell Distribution Width 13.6 % (11.6-14.4); White Blood Count 15.3 K/mm3 (4.8-10.8)
[2024-04-13 06:37] LABS: Alanine Aminotransferase 23 U/L (14-59); Albumin Level 3.9 g/dL (3.4-5.0); Alkaline Phosphatase 147 U/L (46-116); Anion Gap 17 mmol/L (4-12); Aspartate Amino Transferase 15 U/L (15-37); Bilirubin,Total 0.4 mg/dL (0.00-1.00); Blood Urea Nitrogen 22 mg/dL (7-18); Carbon Dioxide 21 mmol/L (21-32); Chloride 105 mmol/L (98-108); Estimated CRCL calculation 37 ml/min; Estimated Glomerular Filt Rate 49; Glucose 181 mg/dL (70-99); Lipase 23 U/L (16-77); Osmolality Calculated 304 mOsm/kg (285-295); Potassium 3.2 mmol/L (3.5-5.1); Sodium 143 mmol/L (136-145); Total Protein 7.4 g/dL (6.4-8.2)
--- NOTE | 2024-04-13 06:43 | PC.NURSE ---
MOMO MIRZA, AT THE BEDSIDE COMPLETING STRAIGHT CATH.
[2024-04-13 06:46] LABS: Influenza A QL RT-PCR Negative (Negative); Influenza B QL RT-PCR Negative (Negative); RSV RNA, RT-PCR Negative (Negative); SARS-CoV-2 RNA PCR Negative (Negative)
--- NOTE | 2024-04-13 06:50 | PC.NURSE ---
URINE TAKEN DOWN TO LAB BY MOMO MIRZA
[2024-04-13 06:56] LABS: Add Urine Microscopic? NO; Appearance Urine Clear (Clear); Bilirubin Urine Negative (Negative); Blood Urine Negative (Negative); Color Urine Light Yellow (Yellow); Glucose Urine UA Negative (Negative); Ketones Urine Negative (Negative); Leukocyte Esterase Ur Negative LEU/UL (Negative); Nitrate Urine Negative (Negative); Protein Urine Negative (Negative); Specific Grav Ur >= 1.030 (1.010-1.020); Urobilinogen Urine 0.2 mg/dL (0.2-1.0); pH Urine 5.5 (5.0-8.0)
--- NOTE | 2024-04-13 06:58 | PC.NURSE ---
REPORT GIVEN TO LILY PRATT
[2024-04-13 07:05] LABS: Amphetamine Screen Urine Negative (Negative); Barbiturate Screen Urine Negative (Negative); Benzodiazepines Screen Urine Negative (Negative); Cannabinoid Screen Urine Positive (Negative); Cocaine Screen Urine Negative (Negative); Methadone Screen Urine Negative (Negative); Opiate Screen Urine Negative (Negative); Phencyclidine Screen Urine Negative (Negative)
--- NOTE | 2024-04-13 07:11 | PC.NURSE ---
report from gladys michel. pt resting per cot. call mack in reach. pt states i dont feel good . resumed care of pt. introduced self to pt. no needs at this time. pt informed of staff change , voiced understanding. awaiting lab results.
--- NOTE | 2024-04-13 07:29 | PC.NURSE ---
07 pt dry heeving, no vomit. informed of discharge. pt states i dont feel good, i cant do this . pt repositioned to sitting position. emesis bag given. dr ortiz notified. [address] abdomin. xray staff notified.
[2024-04-13] MEDS: PANTOPRAZOLE SODIUM IV 40 MG VIAL IV PUSH (07:38)
[2024-04-13] MEDS: METOCLOPRAMIDE HCL INJ 10 MG/2 ML VIAL IV PUSH (07:39)
--- NOTE | 2024-04-13 08:51 | P.HP_ITS ---
H&P: HPI History of Present Illness Date/Time: 04/13/24 08:51 Chief Complaint: nausea, vomiting, diarrhea Narrative: This is a 63-year-old female with a significant past medical history of bladder cancer, chronic lower back pain, hypertension, hyperlipidemia, GERD, bipolar 1 disorder, asthma, hysterectomy, COPD, restless leg syndrome, chronic neck pain, marijuana abuse, former smoker who presented to the hospital for evaluation of nausea, vomiting, diarrhea which started about 4:00 this a.m. She denies any fever, chills, headache, sore throat, chest pain, or shortness of breath. She does report abdominal pain with the nausea, vomiting, and diarrhea. She denies any recent sick contacts. Workup in the hospital included an abdomen / pelvis CT which was negative for any acute findings. Initial labs showed a white blood cell count of 15.3, potassium 3.2, anion gap 17, creatinine 1.13, EGFR 49, blood glucose 181, serum osmolarity 304, alkaline phosphate 147, lipase was normal at 23. UA was obtained and showed a urine specific gravity of greater than 1.030 otherwise normal. Urine drug screen was positive for cannabinoids. Respiratory panel was obtained and was negative for influenza a and B, RSV, COVID. Patient was given 8 mg IV push Zofran, 20 mEq of potassium, Ativan, Reglan, Protonix, and 2 L of IV fluids while in the ED. Review of Systems Review of Systems: All systems reviewed & are unremarkable except as noted in HPI and below PMFSH Past Medical History Medical History COPD (chronic obstructive pulmonary disease) Cancer Nocturnal leg cramps Chronic neck pain Overweight (BMI 25.0-29.9) Nicotine dependence in remission Bladder cancer Chronic low back pain Hypertension Hypercholesteremia GERD (gastroesophageal reflux disease) Bipolar 1 disorder Asthma Surgical History Surgical History H/O nephrolithotomy with removal of calculi x2 on right and x3 on left; Bladder tumor Tumor Removal 2011 Hx of cataract surgery (~2014) Hx of tonsillectomy (~1966) History of hysterectomy (~1999) LIBERTAD BSO Family History Family History Mother Family history of coronary artery disease Rectal cancer Hypertension Depression Heart disease Father Family history of coronary artery disease Throat cancer Lung cancer Diabetes mellitus Hypertension Brother Family history of coronary artery disease Alcoholism Diabetes mellitus Heart disease Cerebrovascular accident Sibling Cancer Social History Social History Smoking packs per day: 1 Smoking cigarettes per day: 20.0 Years smoked: 30 Smoking pack-years: 30.00 Smoking status: Former smoker Tobacco type: cigarettes Second hand tobacco smoke exposure: Yes Smoking end date: 01/08/13 Additional smoking assessment comments: Quit 2012. 30 pack-year history Alcohol intake: never Substance use: current Substance use type: marijuana Other substance usage details: daily Last use: last week Do You Feel Safe in your Home?: Yes Lack of Transportation: No Lack of Food: Never True Current Housing: Decline to Answer Concerned About Future Housing: Decline to Answer Difficulty Paying Gas/Electric Bills: Decline to Answer Difficulty Paying for Meds: Decline to Answer Currently Unemployed: Decline to Answer Education: Decline to Answer Difficulty w/ Childcare or Family Care: Decline to Answer Living arrangements: with family Additional living arrangements comments: . No children. Occupation/Education: retired Additional occupation/education comments: Prior Occupation: [employer]. Gender identity (if verbalized by the patient): Female Spiritual care concerns: No Meds Home Medications and Allergies Home Medications ?Medication ?Instructions ?Recorded ?Confirmed ?Type potassium chloride 20 mEq 40 meq (2 x 20 mEq) PO DAILY@0800 09/22/21 03/11/24 Rx tablet,extended release (K-Tab) #6 tabs montelukast 10 mg tablet See Rx Instructions .Route 05/12/23 03/11/24 Rx .COMPLEX #90 tabs fluticasone propionate 50 See Rx Instructions .Route 08/31/23 03/11/24 Rx mcg/actuation nasal .COMPLEX #16 mL spray,suspension ipratropium 0.5 mg-albuterol 3 mg See Rx Instructions .Route 12/04/23 03/11/24 Rx (2.5 mg base)/3 mL nebulization .COMPLEX #90 ea soln mirabegron 25 mg tablet,extended See Rx Instructions .Route 12/21/23 03/11/24 Rx release 24 hr (Myrbetriq) .COMPLEX #90 tabs rosuvastatin 20 mg tablet See Rx Instructions .Route 12/21/23 03/11/24 Rx .COMPLEX #90 tabs cyclobenzaprine 10 mg tablet 10 mg PO .HS PRN muscle spasm #20 01/01/24 03/11/24 Rx tabs paroxetine HCl 20 mg tablet See Rx Instructions .Route 02/15/24 03/11/24 Rx .COMPLEX #90 tabs albuterol sulfate 90 mcg/actuation 1 puff inhalation Q4H PRN asthma 03/11/24 03/11/24 Rx aerosol inhaler (ProAir HFA) #18 grams omeprazole 20 mg capsule,delayed See Rx Instructions .Route 03/18/24 Rx release .COMPLEX #90 caps acetaminophen 500 mg tablet 500 mg PO Q6H PRN For Fever or 04/03/24 Rx (Tylenol Extra Strength) pain #30 tabs aspirin 81 mg tablet,delayed 81 mg PO DAILY #30 tabs 04/03/24 Rx release fluticasone furoate 100 1 inh inhalation DAILY #1 ea 04/03/24 Rx mcg-vilanterol 25 mcg/dose inhalation powder (Breo Ellipta) furosemide 40 mg tablet (Lasix) 40 mg PO QAM #30 tabs 04/03/24 Rx metoprolol succinate 25 mg 12.5 mg (1/2 x 25 mg) PO .HS #30 04/03/24 Rx tablet,extended release 24 hr tabs nitroglycerin 0.4 mg sublingual 0.4 mg sublingual Q5M PRN chest 04/03/24 Rx tablet pain #30 tabs spironolactone 25 mg tablet 25 mg PO DAILY #30 tabs 04/03/24 Rx ondansetron 4 mg disintegrating 4 mg PO Q6H PRN nausea and 04/13/24 Rx tablet vomiting #14 tabs Allergies Allergy/AdvReac Type Severity Reaction Status Date / Time codeine Allergy Intermediate Unknown Verified 04/13/24 06:16 morphine Allergy Intermediate Unknown Verified 04/13/24 06:16 Penicillins Allergy Intermediate Unknown Verified 04/13/24 06:16 methylprednisolone AdvReac Intermediate Palpitation Verified 04/13/24 06:16 s Vital Signs Vital Signs - 24 hr 04/13/24 05:47 04/13/24 06:06 04/13/24 06:18 Temperature 97.6 F Pulse Rate 80 67 68 Respiratory Rate 18 24 H 20 Blood Pressure 188/96 H 186/67 H Pulse Oximetry 99 100 100 Oxygen Delivery Room Air Room Air Room Air 04/13/24 06:30 04/13/24 07:00 04/13/24 07:01 Temperature Pulse Rate 80 Respiratory Rate 18 Blood Pressure 184/93 H 185/93 H Pulse Oximetry 94 99 98 Oxygen Delivery Room Air 04/13/24 07:15 04/13/24 07:16 Temperature Pulse Rate 72 Respiratory Rate 20 Blood Pressure 186/75 H Pulse Oximetry 100 100 Oxygen Delivery Room Air Exam Narrative: General: In no acute distress, well nourished Head: atraumatic, no encephalopathy Eyes:PERRLA, sclera clear ENT: moist mucous membranes, nasal passages clear Neck: supple, no JVD, no adenopathy, trachea midline Cardiac: Normal S1 and S2. RRR, No murmur, gallops or friction rubs, peripheral pulses intact. Respiratory: Lungs clear to auscultation, no adventitious lung sounds, currently on room air Gastrointestinal: soft, non-distended, non-tender, normoactive bowel sounds. Was incontinent of bowel and bladder in the ER : voiding without difficulty. Extremities: moves all extremities well, no edema Skin: clean, dry, intact. No wounds or lesions. Neuro: Alert and oriented x4, cranial nerves intact, no neuro deficits. Psych: normal mood, normal affect, interactive H&P: Results Labs Labs: Short CBC 04/13/24 Range/Units 06:18 WBC 15.3 H (4.8-10.8) K/mm3 Hgb 13.5 (12.0-15.0) g/dL Hct 40.9 (35.0-49.0) % Plt Count 227 (150-420) K/mm3 BMP 04/13/24 06:18 Sodium 143 Potassium 3.2 L Chloride 105 Carbon Dioxide 21 BUN 22 H Creatinine 1.13 H Glucose 181 H Calcium 9.0 Liver Function 04/13/24 Range/Units 06:18 Total Bilirubin 0.4 (0.00-1.00) mg/dL AST 15 (15-37) U/L ALT 23 (14-59) U/L Alkaline Phosphatase 147 H (46-116) U/L Albumin 3.9 (3.4-5.0) g/dL Urine 04/13/24 Range/Units 06:45 Urine Color Light yellow (Yellow) Urine Appearance Clear (Clear) Urine pH 5.5 (5.0-8.0) Ur Specific Gillett >= 1.030 H (1.010-1.020) Urine Protein Negative (Negative) Urine Glucose (UA) Negative (Negative) Imaging abdomen/pelvis CT: Radiologist's impression: EXAMINATION: CT abdomen pelvis w con DATE: 04/13/2024 08:00 INDICATION: Abdominal pain. Nausea and vomiting. Diarrhea. TECHNIQUE: Computed tomography (CT) of the abdomen and pelvis was performed with 100 mL Omnipaque 350 intravenous contrast. Automated exposure control and iterative reconstruction technique were employed. The dose-length product was 591.82 mGy-cm. COMPARISON: CT abdomen and pelvis 06/01/2021 FINDINGS: The visualized portions of the lung bases are clear without pneumonia or pleural effusion. The heart size is normal. No pericardial effusion. There are coronary artery calcifications. The liver, gallbladder, pancreas, and adrenal glands are normal. Calcifications in the spleen are consistent with old granulomatous disease. The kidneys are normal. There are no dilated loops of bowel. The appendix is normal. There are no pathologically enlarged lymph nodes. There is no free intraperitoneal fluid. There is mild thoracic and lumbar spondylosis. IMPRESSION: 1. No etiology for the patient's symptoms. Reviewed, dictated and finalized at location A. ER HELPER Assessment and Plan Assessment and plan (1) Enteritis: Code(s): K52.9 - Noninfective gastroenteritis and colitis, unspecified Status: Acute Assessment and Plan: reporting nausea, vomiting, diarrhea x1 day * patient was given 2 L normal saline while in the ED * electrolytes replaced * continue normal saline and 20 of KCl at 100 mL/hour * advance diet as tolerated to a diabetic diet * continue antiemetics (2) Electrolyte imbalance: Code(s): E87.8 - Other disorders of electrolyte and fluid balance, not elsewhere classified Status: Acute Assessment and Plan: * potassium 3.2 * patient was given 20 mEq while in the ED * Will given additional 20 mEq and add 20 mEq to normal saline maintenance fluids * continue to trend * will check magnesium (3) Bipolar 1 disorder: Code(s): F31.9 - Bipolar disorder, unspecified Status: Acute Assessment and Plan: * continue paroxetine (4) Hypertension: Code(s): I10 - Essential (primary) hypertension Status: Acute Assessment and Plan: * blood pressure ranging 159/66 to 188/96 * continue metoprolol (5) CHF (congestive heart failure): Code(s): I50.9 - Heart failure, unspecified Status: Acute Assessment and Plan: * spironolactone and Lasix on hold (6) Hypercholesteremia: Code(s): E78.00 - Pure hypercholesterolemia, unspecified Status: Acute Assessment and Plan: * continue rosuvastatin and aspirin (7) GERD (gastroesophageal reflux disease): Code(s): K21.9 - Gastro-esophageal reflux disease without esophagitis Status: Acute Assessment and Plan: * will start Protonix (8) COPD (chronic obstructive pulmonary disease): Code(s): J44.9 - Chronic obstructive pulmonary disease, unspecified Status: Acute Assessment and Plan: * continue Singulair, Breo Ellipta and albuterol rescue inhaler Quality VTE Prophylaxis VTE prophylaxis: mechanical ordered Hospitalist MIPS Advance Care Plan I have confirmed that the patient's Advanced Care Plan is present, code status is documented, or surrogate decision maker is listed in patient medical record.: Yes Medication Reconciliation I have utilized all available resources to obtain, update and review the patients current medications (includes all prescriptions, OTC, herbals, cannabis, and nutritional supplements).: Yes
[2024-04-13 09:21] LABS: Magnesium 1.8 mg/dL (1.8-2.4)
[2024-04-13 09:26] LABS: Hemoglobin A1C 5.7 % (<5.7)
[2024-04-13 09:29] LABS: Troponin I 16.4 ng/L (0.00-60.4)
[2024-04-13] MEDS: SODIUM CHLORIDE 0.9% IV 500 ML 999 ML IV CONT (10:28)
[2024-04-13] MEDS: KCL 20MEQ/0.9% SOD CHL 1,000 ML 100 ML IV CONT ×2 (11:06→21:00)
[2024-04-13] MEDS: KCL 20 MEQ/SW 100 ML 100 ML 50 MEQ IVPB (11:07)
[2024-04-13] MEDS: ONDANSETRON INJ 4 MG/2 ML VIAL IV PUSH (11:15)
[2024-04-13 12:00] LABS: Glucose Point of Care 149 mg/dl (65-105)
[2024-04-13] MEDS: hydrALAZINE HCL 20 MG/ML VIAL 10 MG IV PUSH (12:26)
[2024-04-13 12:45] LABS: Troponin I 23.5 ng/L (0.00-60.4)
--- NOTE | 2024-04-13 13:43 | PC.NURSE ---
Pt arrived from ER At 0900. Pt very sleepy at this time. She is nauseated at present and not wanting to talk. Pt transfers to the bed with assist x 1. Gait is ubsteady. Bed alarm is on.
[2024-04-13] MEDS: KCL 20 MEQ/SW 100 ML 100 ML 33 MEQ IVPB (14:29)
[2024-04-13 15:30] LABS: Alanine Aminotransferase 26 U/L (14-59); Albumin Level 4.2 g/dL (3.4-5.0); Alkaline Phosphatase 157 U/L (46-116); Anion Gap 15 mmol/L (4-12); Aspartate Amino Transferase 16 U/L (15-37); Bilirubin,Total 0.5 mg/dL (0.00-1.00); Blood Urea Nitrogen 14 mg/dL (7-18); Carbon Dioxide 24 mmol/L (21-32); Chloride 104 mmol/L (98-108); Estimated CRCL calculation 46 ml/min; Estimated Glomerular Filt Rate 59; Glucose 155 mg/dL (70-99); Osmolality Calculated 299 mOsm/kg (285-295); Potassium 3.7 mmol/L (3.5-5.1); Sodium 143 mmol/L (136-145); Total Protein 8.1 g/dL (6.4-8.2)
[2024-04-13] MEDS: PROCHLORPERAZINE EDISYLATE 10 MG/2 ML VIAL IV PUSH (16:25)
[2024-04-13 16:32] LABS: Glucose Point of Care 157 mg/dl (65-105)
[2024-04-13] MEDS: MONTELUKAST SODIUM 10 MG TABLET BY MOUTH (20:15)
[2024-04-13] MEDS: METOPROLOL SUCCINATE EXT REL 12.5 MG TABCR PO (20:15)
[2024-04-13 20:31] LABS: Glucose Point of Care 152 mg/dl (65-105)
[2024-04-14 06:16] LABS: Basophils Absolute Auto 0.03 K/mm3 (0.00-0.10); Basophils Percent Auto 0.3 % (0.0-1.0); Eosinophils Absolute Auto 0.12 K/mm3 (0.02-0.50); Eosinophils Percent Auto 1.2 % (1.0-6.0); Hematocrit 37.3 % (35.0-49.0); Hemoglobin 11.9 g/dL (12.0-15.0); Immature Granulocyte Absolute 0.06 K/mm3 (0.00-0.00); Immature Granulocyte Percent A 0.6 % (0.0-0.0); Lymphocytes Absolute Auto 1.44 K/mm3 (1.10-4.50); Lymphocytes Percent Auto 14.6 % (18.0-42.0); Mean Corpuscular HGB Conc 31.9 g/dL (32-36); Mean Corpuscular Hemoglobin 29.7 pg (27.0-31.0); Mean Platelet Volume 11.2 fl (9.2-11.8); Monocytes Absolute Auto 0.41 K/mm3 (0.10-0.90); Monocytes Percent Auto 4.2 % (2.0-11.0); Neutrophils Absolute Auto 7.77 K/mm3 (1.70-7.20); Neutrophils Percent Auto 79.1 % (50.0-70.0); Platelet Count Result 213 K/mm3 (150-420); Red Blood Count 4.01 M/mm3 (4.20-5.40); Red Cell Distribution Width 14.4 % (11.6-14.4); White Blood Count 9.8 K/mm3 (4.8-10.8)
[2024-04-14 06:57] LABS: Alanine Aminotransferase 22 U/L (14-59); Albumin Level 3.3 g/dL (3.4-5.0); Alkaline Phosphatase 121 U/L (46-116); Anion Gap 11 mmol/L (4-12); Aspartate Amino Transferase 18 U/L (15-37); Bilirubin,Total 0.5 mg/dL (0.00-1.00); Blood Urea Nitrogen 12 mg/dL (7-18); Calcium 8.6 mg/dL (8.5-10.1); Carbon Dioxide 25 mmol/L (21-32); Chloride 108 mmol/L (98-108); Estimated CRCL calculation 52 ml/min; Estimated Glomerular Filt Rate > 60; Glucose 119 mg/dL (70-99); Osmolality Calculated 298 mOsm/kg (285-295); Potassium 3.7 mmol/L (3.5-5.1); Sodium 144 mmol/L (136-145); Total Protein 6.4 g/dL (6.4-8.2)
[2024-04-14 08:00] VITALS: BP 142/68; PULSE 93; RESP 14; TEMP 36.7; O2SAT 98
[2024-04-14 08:08] LABS: Glucose Point of Care 125 mg/dl (65-105)
[2024-04-14] MEDS: KCL 20MEQ/0.9% SOD CHL 1,000 ML 100 ML IV CONT (08:10)
[2024-04-14] MEDS: ONDANSETRON INJ 4 MG/2 ML VIAL IV PUSH (08:14)
[2024-04-14] MEDS: ASPIRIN 81 MG ENTERIC TABLET PO (09:34)
[2024-04-14] MEDS: ROSUVASTATIN 10 MG TABLET 20 MG PO (09:34)
[2024-04-14] MEDS: PANTOPRAZOLE 40 MG TABLET PO (09:34)
[2024-04-14] MEDS: FLUTICASONE PROPIONATE 0.05% NA SPR 16 GM BTL (*BKC) 1 SPRAY NASAL (09:34)
[2024-04-14] MEDS: MIRABEGRON 25 MG ER TABLET BY MOUTH (09:34)
--- NOTE | 2024-04-14 10:38 | PM.DS ---
DS: Admitting Diagnosis Discharge Date 04/14/2024 Admitting Diagnosis acute hypokalemia Electrolyte imbalance Nausea and vomiting Dehydration DS: Discharge Diagnosis Discharge Diagnosis (1) Electrolyte imbalance: Code(s): E87.8 - Other disorders of electrolyte and fluid balance, not elsewhere classified Status: Acute (2) Acute hypokalemia: Code(s): E87.6 - Hypokalemia Status: Acute (3) Acute dehydration: Code(s): E86.0 - Dehydration Status: Acute (4) Nausea & vomiting: Qualifiers: Vomiting type: unspecified Qualified Code(s): R11.2 - Nausea with vomiting, unspecified Code(s): R11.2 - Nausea with vomiting, unspecified Status: Acute DS: Summary Hospital Course Reason for hospitalization: Nausea and vomiting Hospital Course: This is a63 year old female that was admitted in the hospital for nausea and vomiting w diarrhea. Patient was found to be hypokalemic and dehydrated. Patient was given IV fluids and with potassium. Patient was given antiemetic and rest. Patient has continue to improve and her electrolytes have improved as well. More than likely she has had gastroenteritis. Patient blood pressure was high as well buy the evidence of her medicine bottles with the dates she has not been taking her medication . I did have a long conversation with her about compliance of medication and the importance of taking her blood pressure medication. I educated patient on hypertension and high blood are the same thing and it is a silent killer and it can cause kidney damage patient has acknowledge understand and states that she would make sure to take her medication. Patient will discharge home at this time. Time Spent with Patient Time attestation: Total time spent providing and/or coordinating discharge services: Exam Narrative: General appearance: Well-developed, well-nourished restless, hyperventilating, dry heaving Skin: Normal color Head: Normocephalic, nontraumatic Eyes: Clear conjunctiva ENT: Oropharynx normal, ears normal, nose normal Neck: Supple, nontender Chest and respiratory: Airway patent, no respiratory distress, no accessory muscle use Heart: Regular rate/rhythm Abdomen: Soft, epigastric tenderness, no organomegaly, hyperactive bowel sounds Musculoskeletal: Normal range of motion, nontender back Neurologic: Alert and oriented ?3, [employer] is normal as tested, no gross motor deficit DS: Data Data Completed and Pending Labs on day of discharge: Labs from last 24 hours 04/14/24 04/14/24 04/13/24 08:02 05:47 20:29 WBC 9.8 RBC 4.01 L Hgb 11.9 L Hct 37.3 MCV 93.0 MCH 29.7 MCHC 31.9 L RDW 14.4 Plt Count 213 MPV 11.2 Immature Gran % (Auto) 0.6 H Neut % (Auto) 79.1 H Lymph % (Auto) 14.6 L [place] % (Auto) 4.2 Eos % (Auto) 1.2 Baso % (Auto) 0.3 Lymph # (Auto) 1.44 [place] # (Auto) 0.41 Eos # (Auto) 0.12 Baso # (Auto) 0.03 Abs Immat Gran (auto) 0.06 H Absolute Neuts (auto) 7.77 H Absolute Nucleated RBC 0.00 Nucleated RBC % 0.0 Sodium 144 Potassium 3.7 Chloride 108 Carbon Dioxide 25 Anion Gap 11 BUN 12 Creatinine 0.84 Estim Creat Clear Calc 52 Estimated GFR > 60 Glucose 119 H POC Capillary Glucose 125 H 152 H Calculated Osmolality 298 H Calcium 8.6 Total Bilirubin 0.5 AST 18 ALT 22 Alkaline Phosphatase 121 H Troponin I Total Protein 6.4 Albumin 3.3 L 04/13/24 04/13/24 04/13/24 16:27 15:07 12:23 WBC RBC Hgb Hct MCV MCH MCHC RDW Plt Count MPV Immature Gran % (Auto) Neut % (Auto) Lymph % (Auto) [place] % (Auto) Eos % (Auto) Baso % (Auto) Lymph # (Auto) [place] # (Auto) Eos # (Auto) Baso # (Auto) Abs Immat Gran (auto) Absolute Neuts (auto) Absolute Nucleated RBC Nucleated RBC % Sodium 143 Potassium 3.7 Chloride 104 Carbon Dioxide 24 Anion Gap 15 H BUN 14 Creatinine 0.96 Estim Creat Clear Calc 46 Estimated GFR 59 Glucose 155 H POC Capillary Glucose 157 H Calculated Osmolality 299 H Calcium 9.0 Total Bilirubin 0.5 AST 16 ALT 26 Alkaline Phosphatase 157 H Troponin I 23.5 Total Protein 8.1 Albumin 4.2 04/13/24 11:52 WBC RBC Hgb Hct MCV MCH MCHC RDW Plt Count MPV Immature Gran % (Auto) Neut % (Auto) Lymph % (Auto) [place] % (Auto) Eos % (Auto) Baso % (Auto) Lymph # (Auto) [place] # (Auto) Eos # (Auto) Baso # (Auto) Abs Immat Gran (auto) Absolute Neuts (auto) Absolute Nucleated RBC Nucleated RBC % Sodium Potassium Chloride Carbon Dioxide Anion Gap BUN Creatinine Estim Creat Clear Calc Estimated GFR Glucose POC Capillary Glucose 149 H Calculated Osmolality Calcium Total Bilirubin AST ALT Alkaline Phosphatase Troponin I Total Protein Albumin Discharge Plan Discharge Attending physician on discharge: Gunnar Mancini Discharging Clinician: Floyd Walls Anticipated Discharge Date/Time: 04/14/24 10:27 Patient Disposition: Home, Self-Care Activity: june shower Diet: as tolerated Wound Care Instructions: follow printed instructions Patient Instructions: Antibiotic Form, Ondansetron (By mouth), Acute Nausea and Vomiting (DC), Acute Diarrhea (ED), Hypertension (DC) Patient Language: Khmer Stand Alone Forms: General Discharge Information Follow-up/Referrals: Sara Irene, [employer] [Primary Care Provider] - 2 weeks (Schedule appointment for the next week ) Discharge Medications: New ondansetron 4 mg tablet,disintegrating 4 mg PO Q6H PRN (Reason: nausea and vomiting) Qty: 14 0RF ondansetron HCl 4 mg tablet 4 mg PO Q8H PRN (Reason: nausea and vomiting) Qty: 14 0RF Continued potassium chloride [K-Tab] 20 mEq tablet extended release 20 meq PO DAILY@0800 albuterol sulfate [ProAir HFA] 90 mcg/actuation HFA aerosol inhaler 1 puff INHALATION Q4H PRN (Reason: asthma) Qty: 18 3RF rosuvastatin 20 mg tablet See Rx Instructions .ROUTE .COMPLEX Qty: 90 3RF Dose Instruction: TAKE 1 TABLET BY MOUTH EVERY DAY Rx Instructions: TAKE 1 TABLET BY MOUTH EVERY DAY Myrbetriq 25 mg tablet extended release 24 hr See Rx Instructions .ROUTE .COMPLEX Qty: 90 1RF Dose Instruction: TAKE 1 TABLET BY MOUTH EVERY DAY Rx Instructions: TAKE 1 TABLET BY MOUTH EVERY DAY montelukast 10 mg tablet See Rx Instructions .ROUTE .COMPLEX Qty: 90 3RF Dose Instruction: TAKE 1 TABLET BY MOUTH EVERY DAY Rx Instructions: TAKE 1 TABLET BY MOUTH EVERY DAY fluticasone propionate 50 mcg/actuation spray,suspension See Rx Instructions .ROUTE .COMPLEX Qty: 16 3RF Dose Instruction: SPRAY 1 SPRAY INTO EACH NOSTRIL EVERY DAY Rx Instructions: SPRAY 1 SPRAY INTO EACH NOSTRIL EVERY DAY ipratropium-albuterol 0.5 mg-3 mg(2.5 mg base)/3 mL solution for nebulization See Rx Instructions .ROUTE .COMPLEX Qty: 90 11RF Dose Instruction: USE 1 VIAL IN NEBULIZER 3 TIMES DAILY Rx Instructions: USE 1 VIAL IN NEBULIZER 3 TIMES DAILY cyclobenzaprine 10 mg tablet 10 mg PO .HS PRN (Reason: muscle spasm) Qty: 20 0RF paroxetine HCl 20 mg tablet See Rx Instructions .ROUTE .COMPLEX Qty: 90 1RF Dose Instruction: TAKE 1 TABLET BY MOUTH EVERY DAY Rx Instructions: TAKE 1 TABLET BY MOUTH EVERY DAY omeprazole 20 mg capsule,delayed release(DR/EC) See Rx Instructions .ROUTE .COMPLEX Qty: 90 0RF Dose Instruction: TAKE 1 CAP BY MOUTH EVERY DAY Rx Instructions: TAKE 1 CAP BY MOUTH EVERY DAY aspirin 81 mg tablet,delayed release (DR/EC) 81 mg PO DAILY Qty: 30 0RF furosemide [Lasix] 40 mg tablet 40 mg PO QAM Qty: 30 0RF acetaminophen [Tylenol Extra Strength] 500 mg tablet 500 mg PO Q6H PRN (Reason: For Fever or pain ) Qty: 30 0RF spironolactone 25 mg tablet 25 mg PO DAILY Qty: 30 0RF nitroglycerin 0.4 mg tablet, sublingual 0.4 mg sublingual Q5M PRN (Reason: chest pain) Qty: 30 0RF Rx Instructions: do not exceed 3 doses per episode metoprolol succinate 25 mg tablet extended release 24 hr 12.5 mg PO .HS Qty: 30 0RF fluticasone furoate-vilanterol [Breo Ellipta] 100-25 mcg/dose blister with device 1 inh inhalation DAILY Qty: 1 0RF Date of admission: 04/13/24 08:52 Primary Care Provider: Sara Irene Admitting Provider: Gunnar Mancini Attending physician on admission: Gunnar Mancini Condition: Stable
--- NOTE | 2024-04-14 13:35 | PC.NURSE ---
Pt discharged to home and family care. all home medications returned to pt. Instructions given to pt regarding her medications: dosages, times, purpose and amounts. Pt instructed about the importance of taking he medications as prescribed. Pt verbalized understanding of instructions.
--- OUTSIDE RECORDS SUMMARY | 2024-04-15 08:29 | XMS_ITS | Patient Health Summary ---
Author Organization [facility] Address [address] [place] [address] Care Team Providers Care Chemical Engraver Name Role Phone Sara Irene APRN-PRODUCTION ILLUSTRATOR Primary Care Provid er Note from [facility],non-owned Affiliates and Associated Physician Practices is amultiple site organization consisting of ambulatory clinics and hospital sitesin [place], [place], [place]. This disclosure is being madepursuant to the Care Everywhere program and may not contain all information available regarding this patient. Last updated 17.[facility] Allergies * Codeine(Nausea and/or Vomiting) -Low Criticality [...] propionate (Flonase) 50 MCG/ACT nasal spray(Started 07/06/2022) [place] 1 (one) spray into each nostril once [...] and heating? Not hard at all 04/01/2024 [facility] - Occupational [...] any time in the past 12 m [facility], were you homeless or living in a m[facility] (including now)? No 03/31/2024 Sex and Gender Information Value Date Recorded Sex Assigned at Not on file Gender Identity Not on file Sexual Orientation Not on file Last Filed Vital Signs Vital Sign Reading Time Taken Comments Blood Pressure 142/99 04/03/2024 7:59 AM TEACHING DIETITIAN Pulse 89 04/03/2024 9:18 AM TEACHING DIETITIAN Temperature 36.6 C (97.9 F) 04/03/2024 7:59 AM TEACHING DIETITIAN Respiratory Rate 18 04/03/2024 9:18 AM TEACHING DIETITIAN Oxygen Saturation 99% 04/03/2024 9:18 AM TEACHING DIETITIAN Inhaled Oxygen Concentration 40% 03/31/2024 4 :59 PM TEACHING DIETITIAN Weight 73.5 kg (162 lb) 04/02/2024 4:11 AM TEACHING DIETITIAN Height 157.5 cm (5' 2 ) 03/31/2024 10:03 AM TEACHING DIETITIAN Body Mass Index 29.63 03/31/2024 10:03 AM TEACHING DIETITIAN Procedures * CARDIAC RHYTHM STRIP ORDER(Performed 04/05/2024) [...] * OT EVAL AND TREAT(Performed 03/31/2024) * FL LARYNGOSCOPY,FLEX FIBER,DIAGNOSTIC(Performed 12/15/2023) Performed for Hoarseness of voice * FL LARYNGOSCOPY,FLEX FIBER,DIAGNOSTIC(Performed 06/09/2023) Performed for Hoarseness of voice * FL LARYNGOSCOPY,FLEX FIBER,DIAGNOSTIC(Performed 01/06/2023) Performed for Hoarseness of voice * PATHOLOGY TISSUE(Performed 11/21/2022) Performed for Vocal cord dysplasia * ENDOTRACHEAL TUBE NOTE(Performed 11/21/2022) * ENDOTRACHEAL TUBE NOTE(Performed 11/21/2022) * FL LARYNGOSCOPY,DIRCT,OP SCOP,EXC TUMR(Performed 11/21/2022) Performed for Vocal cord dysplasia * FL LARYNGOSCOPY,FLEX FIBER,DIAGNOSTIC(Performed 10/21/2022) Performed for Vocal cord dysplasia * ENDOTRACHEAL TUBE NOTE(Performed 09/21/2022) * PATHOLOGY TISSUE(Performed 09/21/2022) Performed for Leukoplakia of vocal cords * FL LARYNGOSCOPY,DIRCT,OP SCOP,EXC TUMR(Performed 09/21/2022) Performed for Leukoplakia of vocal cords * FL LARYNGOSCOPY,FLEX FIBER,DIAGNOSTIC(Performed 09/02/2022) Performed for Hoarseness of voice, Leukoplakia of vocal cords Results * CARDIAC RHYTHM STRIP ORDER (04/05/2024 1:14 AM TEACHING DIETITIAN) Narrative 04/05/2024 1:14 AM TEACHING DIETITIAN Ordered by an unspecified provider. Scanned Document CARDIAC SERVICES ORD ERABLES * (ABNORMAL) GLUCOSE - POINT OF CARE (04/03/2024 7:59 AM TEACHING DIETITIAN) Only the most recent of11 resultswithin the time period is included. Glucose WB/POC 102(H) 70 - 99 mg/dL 04/03/2024 8:10 AM TEACHING DIETITIAN [facility] Specimen Type Cap Fingerstick 2024 8:10 AM TEACHING DIETITIAN [facility] Blood BLOOD SPECIMEN / Unknown 04/03/2024 7:59 AM TEACHING DIETITIAN 04/03/2024 8:10 AM TEACHING DIETITIAN Elodia Varela MD LAB - POINT OF CARE ORDERABLES [facility] [address] [place] [address] * (ABNORMAL) BASIC METABOLIC PANEL (CALCIUM TOTAL) (04/03/2024 7:31 AM TEACHING DIETITIAN) Only the most recent of3 resultswithin the time period is included. [facility] Glucose 113(H) 70 - 99 mg/dL 04/03/2024 8:[address] [facility] Sodium 139 136 - 145 mmol/L 04/03/2024 8:[address] [facility] Potassium 4.3 3.5 - 5.1 mmol/L 04/03/2024 8:[address] [facility] Chloride 107 98 - 107 mmol/L 04/03/2024 8:[address] [facility] CO2 20(L) 22 - 29 mmol/L 04/03/2024 8:[address] [facility] Calcium 9.9 8.4 - 10.4 mg/dL 04/03/2024 8:[address] [facility] Anion Gap 12 6 - 16 mmol/L 04/03/2024 8:[address] [facility] BUN 28(H) 7 - 26 mg/dL 04/03/2024 8:[address] [facility] Creatinine 0.80 0.57 - 1.11 mg/dL 04/03/2024 8:[address] [facility] eGFR by CKD-EPI 83(L) >=90 mL/min/1.7 3 m2 04/03/2024 8:[address] [facility] Blood BLOOD SPECIMEN / Unknown Lab Venipuncture / Unknown 04/03/2024 7:31 AM TEACHING DIETITIAN 04/03/2024 7:37 AM TEACHING DIETITIAN Mariah Chavez PA-C LAB - CHEMISTRY ORDERABLES [facility] [address] [place] [address] * PHOSPHORUS BLOOD (04/03/2024 7:31 AM TEACHING DIETITIAN) Only the most recent of2 resultswithin the time period is included. Phosphorus 3.2 2.5 - 4.5 mg/dL 04/03/2024 8:[address] [facility] Blood BLOOD SPECIMEN / Unknown Lab Venipuncture / Unknown 04/03/2024 7:31 AM TEACHING DIETITIAN 04/03/2024 7:37 AM TEACHING DIETITIAN Mariah Chavez PA-C LAB - CHEMISTRY ORDERABLES [facility] [address] [place] [phone] * MAGNESIUM BLOOD (04/03/2024 7:31 AM TEACHING DIETITIAN) Only the most recent of2 resultswithin the time period is included. Magnesium 2.1 1.6 - 2.6 mg/dL 04/03/2024 8:[address] [facility] Blood BLOOD SPECIMEN / Unknown Lab Venipuncture / Unknown 04/03/2024 7:31 AM TEACHING DIETITIAN 04/03/2024 7:37 AM [facility] Mariah Chavez PA-C LAB - CHEMISTRY ORDERABLES Performing Organization Address City/[facility]/ZIP Co de Phone Number [facility] [address] [place] [address] * PT-INR (04/03/2024 7:19 AM TEACHING DIETITIAN) Only the most recent of4 resultswithin the time period is included. PT 13.6 12.1 - 14.8 sec 04/03/2024 7:[address] [facility] INR 1.0 0.9 - 1.1 04/03/2024 7:[address] [facility] Blood BLOOD SPECIMEN / Unknown Lab Venipuncture / Unknown 04/03/2024 7:19 AM TEACHING DIETITIAN 04/03/2024 7:31 AM TEACHING DIETITIAN Narrative [facility] - 04/03/2024 7:48 AM [facility] Conventional Warfarin Anticoagulant Therapy: INR Reference Range: 2.0-3.0 Intensive Warfarin Anticoagulant Therapy: INR Reference Range: 2.5-3.5 Emanuel Simons MD LAB - COAGULA TION ORDERABLES [facility] [address] [place] [address] * CBC W AUTO DIFFERENTIAL (04/03/2024 7:19 AM [facility]) Only the most recent of4 resultswithin the time period is included. [facility] WBC 7.5 4.0 - 10.7 x10E9/L 04/03/2024 8:[address] [facility] RBC Count 4.92 3.90 - 5.20 x10E12/L 04/03/2024 8:[address] [facility] Hemoglobin 14.7 11.9 - 15.8 g/dL 04/03/2024 8:[address] [facility] Hematocrit 42.5 34.8 - 46.1 % 04/03/2024 8:[address] [facility] MCV 86.4 80.0 - 98.0 fL 04/03/2024 8:[address] [facility] MCH 29.9 26.7 - 33.6 pg 04/03/2024 8:[address] [facility] MCHC 34.6 31.7 - 36.3 g/dL 04/03/2024 8:[address] [facility] RDW-CV 13.7 11.3 - 14.8 % 04/03/2024 8:[address] [facility] Platelet Count 209 150 - 420 x10E9/L 04/03/2024 8:[address] [facility] MPV 11.2 7.8 - 11.4 fL 04/03/2024 8:[address] [facility] Neutrophil % 64.5 41.0 - 74.0 % 04/03/2024 8:[address] [facility] Lymphocyte % 26.1 17.0 - 47.0 % 04/03/2024 8:[address] [facility] Monocyte % 6.6 3.0 - 11.0 % 04/03/2024 8:[address] [facility] Eosinophil % 1.3 0.0 - 7.0 % 04/03/2024 8:[address] [facility] Basophil % 1.2 0.0 - 1.6 % 04/03/2024 8:[address] [facility] Immature Granulocytes % 0.3 0.0 - 1.0 % 04/03/2024 8:[address] [facility] Neutrophil Absolute 4.82 1.60 - 7.50 x10E9/L 04/03/2024 8:[address] [facility] Lymphocyte Absolute 1.95 1.00 - 4.40 x10E9/L 04/03/2024 8:[address] [facility] Monocyte Absolute 0.49 0.15 - 1.00 x10E9/L 04/03/2024 8:[address] [facility] Eosinophil Absolute 0.10 0.00 - 0.60 x10E9/L 04/03/2024 8:[address] [facility] Basophil Absolute 0.09 0.00 - 0.13 x10E9/L 04/03/2024 8:[address] [facility] Blood BLOOD SPECIMEN / Unknown Lab Venipuncture / Unknown 04/03/2024 7:19 AM TEACHING DIETITIAN 04/03/2024 7:31 AM TEACHING DIETITIAN Emanuel Simons MD LAB - HEMATOL OGY ORDERABLES [facility] [address] [place] [id number] * REJECTED SPUTUM GRAM STAIN (04/02/2024 11:28 AM TEACHING DIETITIAN) Gram Stain < 25 per low power field Polymorphonuclear cells. Consistent with poor quality specimen. 04/02/2024 3:51 PM [facility] Gram Stain Recollect if clinically indicated. 04/02/2024 3:51 PM [facility] Microbiology SPUTUM / Unknown Collection / Unknown 04/02/2024 11:28 AM TEACHING DIETITIAN 04/02/2024 11:34 AM TEACHING DIETITIAN Wei Greco MD LAB - [facility]BIOLOGY [facility] [address] [place] [address], [facility] [phone] * PROCALCITONIN LEVEL (04/02/2024 5:54 AM TEACHING DIETITIAN) Only the most recent of2 resultswithin the time period is included. Procalcitonin 0.07 <0.10 ng/mL 04/02/2024 6:56 AM TEACHING DIETITIAN [facility] Blood BLOOD SPECIMEN / Unknown Lab Venipuncture / Unknown 04/02/2024 5:54 AM TEACHING DIETITIAN 04/02/2024 6:17 AM TEACHING DIETITIAN Narrative [facility] - 04/02/2024 6:56 AM TEACHING DIETITIAN The change in procalcitonin (PCT) concentration over [...] Change in Procalcitonin Calculator is available at [email or web address] If clinical picture has not improved and PCT remains high, reevaluate and consider treatment failure or other causes. Rodríguez Benz MD LAB - CHEMISTRY ROSEANNA KEE [facility] [address] [place] [address] * XR Chest 1Vw Portable (04/02/2024 5:40 AM TEACHING DIETITIAN) Only the most recent of2 resultswithin the time period is included. Anatomical Region Laterality Modality Chest Radiographic Pattie ging 04/02/2024 7:58 AM TEACHING DIETITIAN Impressions 04/02/2024 8:08 AM TEACHING DIETITIAN IMPRESSION: Decreased bilateral airspace disease. Edited by Phoebe Rico on 04/02/2024 8:03 AM > Interpreting Provider: Rod Palma MD on 04/02/2024 8:08 AM Narrative 04/02/2024 8:08 AM TEACHING DIETITIAN XR CHEST 1VW PORTABLE INDICATION: J96.01: Acute [...] A/B RSV PCR RAPID (04/01/2024 1:24 PM TEACHING DIETITIAN) COVID-19 PCR Not detected Not detected 04/01/19 2:24 PM TEACHING DIETITIAN [facility] Influenza A PCR Not detected Not detected 04/01/2024 2:24 PM TEACHING DIETITIAN [facility] Influenza B PCR Not detected Not detected 04/01/2024 2:24 PM TEACHING DIETITIAN [facility] RSV PCR Not detected Not detected 04/01/2024 2:24 PM TEACHING DIETITIAN [facility] Microbiology SPECIMEN FROM NASOPHARYNGEAL STRUCTURE / Unknown Collection / Unknown 04/01/2024 1:24 PM TEACHING DIETITIAN 04/01/2024 1:39 PM TEACHING DIETITIAN Narrative [facility] - 04/01/2024 2:24 PM TEACHING DIETITIAN This nucleic acid amplification assay has been [...] Varela MD LAB - MICROBIOLOGY O RDERABLES [facility] [address] [address] * ECHO COMPLETE W CONTRAST (04/01/2024 11:34 AM TEACHING DIETITIAN) AV pk grad 8.2 mmHg SSM CV [...] Laterality Modality Ultrasound 04/01/2024 11:0 0 AM TEACHING DIETITIAN Narrative 04/01/2024 5:26 PM TEACHING DIETITIAN Summary * Normal left ventricular size, global/ [...] 11:00 AM Patient Status: I/P Study Site: [facility] Primary Location: [facility] EStudy Info Technical Quality: Technically Difficult Exam [...] Provider: Tejas Graves Attending Physician: Tejas Graves Possum Trapper: Gaby Morales Left Ventricle Normal left ventricular [...] 11:00 AM Patient Status: I/P Study Site: [facility] Primary Location: [facility] EStudy Info Technical Quality: Technically Difficult Exam [...] Provider: Tejas Graves Attending Physician: Tejas Graves Possum Trapper: Gaby Morales Left Ventricle Normal left ventricular [...] CCL LEFT HEART CATH (04/01/2024 9:32 AM TEACHING DIETITIAN) Anatomical Region Laterality Modality X-Ray Angiograph y Narrative 04/01/2024 9:46 AM TEACHING DIETITIAN Procedures Moderate sedation Left heart cardiac catheterization, selective coronary angiogram and left ventriculogram Indication-NSTEMI EX CHEF-Chris Conte MD After informed consent was obtained the patient was transferred to the cardiac catheterization laboratory where bilateral groin areas were draped and prepped in sterile fashion. 1% lidocaine was utilized to achieve local anesthesia in the right femoral area. Utilizing Doppler guided ultrasound we accessed the right femoral artery and placed a 6 Jamaican sheath without any problems. A 5 Jamaican FL4 diagnostic catheter was utilized to cannulate the left main coronary artery and several angiographic views were obtained in different orthogonal planes of the left main LAD and left circumflex arteries. The catheter was exchanged over the wire for a 5 Jamaican FR4 and that catheter was utilized to [...] arteriotomy site was closed utilizing a 6 Jamaican Angio-Seal device with good hemostasis and no complications Estimated blood loss 30 cc Complications none Sedation Versed 2 mg IV and fentanyl 50 mcg IV Procedure Details Estimated Blood Loss: 30 mL Chris Conte MD CV CARDIAC CATH CUPI D PROCS * HEMOGLOBIN A1C (04/01/2024 7:06 AM TEACHING DIETITIAN) Hemoglobin A1c 5.4 <5.7 % 04/01/2024 9:[address] [facility] Estimated Average Glucose 108 mg/dL 04/01/2024 9:[address] [facility] Blood BLOOD SPECIMEN / Unknown Lab Venipuncture / Unknown 04/01/2024 7:06 AM TEACHING DIETITIAN 04/01/2024 7:17 AM TEACHING DIETITIAN Narrative [facility] - 04/01/2024 9:20 AM [facility] HbA1c Interpretation: Normal: < 5.7% Pre-diabetes: [...] Graves MD LAB - CHEMISTRY ROSEANNA KEE [facility] [address] [place] [phone] * (ABNORMAL) PTT (04/01/2024 7:06 AM TEACHING DIETITIAN) Only the most recent of3 resultswithin the time period is included. PTT 71.8(H) 23.0 - 38.4 sec 04/01/2024 7:35 AM TEACHING DIETITIAN [facility] Blood BLOOD SPECIMEN / Unknown Lab Venipuncture / Unknown 04/01/2024 7:06 AM TEACHING DIETITIAN 04/01/2024 7:17 AM TEACHING DIETITIAN Narrative [facility] - 04/01/2024 7:35 AM TEACHING DIETITIAN Heparin Therapeutic Range for PTT: 69.0 - 110.0 seconds. Emanuel Simons MD LAB - COAGULA TION ORDERABLES Performing Organization Address [facility] Co de Phone Number [facility] [address] [place] [address] * (ABNORMAL) LIPID PROFILE (04/01/2024 6:41 AM TEACHING DIETITIAN) Cholesterol 195 <200 mg/dL 04/01/2024 10:41 AM [...] Lab Venipuncture / Unknown 04/01/2024 6:41 AM TEACHING DIETITIAN 04/01/2024 6:46 AM TEACHING DIETITIAN Tejas Graves MD LAB - CHEMISTRY ROSEANNA KEE [facility] [address] [place] [address] * (ABNORMAL) TROPONIN-I HIGH SENSITIVE (03/31/2024 3:11 PM TEACHING DIETITIAN) Only the most recent of2 resultswithin the time period is included. Troponin I High Sensitive 5,189(HH) <=14 ng/L 03/31/2024 4:00 PM TEACHING DIETITIAN [facility] Blood BLOOD SPECIMEN / Unknown Lab Venipuncture / Unknown 03/31/2024 3:11 PM TEACHING DIETITIAN 03/31/2024 3:19 PM TEACHING DIETITIAN Tejas Graves MD LAB - CHEMISTRY ROSEANNA KEE Performing Organization Address City/[facility]/ZIP Co de Phone Number [facility] [address] [place] [address] * CT Angio Chest Pulm Embolism (03/31/2024 2:32 PM TEACHING DIETITIAN) Anatomical Region Laterality Modality Chest Computed Tomogra phy 03/31/2024 2:41 PM TEACHING DIETITIAN Impressions 03/31/2024 2:43 PM TEACHING DIETITIAN IMPRESSION: 1. No pulmonary embolism. 2. Findings most consistent with congestive heart failure with interstitial and alveolar pulmonary edema and small pleural effusion. Differential includes infection. > Interpreting Provider: Daniele Pino MD on 03/31/2024 2:43 PM Narrative 03/31/2024 2:43 PM TEACHING DIETITIAN PROCEDURE: CT ANGIO CHEST PULM EMBOLISM DATE/TIME [...] (ABNORMAL) LACTIC ACID BLOOD (03/31/2024 1:36 PM TEACHING DIETITIAN) Only the most recent of2 resultswithin the time period is included. Lactic Acid 2.9(H) <=2 mmol/L 03/31/2024 2:07 PM TEACHING DIETITIAN [facility] Blood BLOOD SPECIMEN / Unknown Lab Venipuncture / Unknown 03/31/2024 1:36 PM TEACHING DIETITIAN 03/31/2024 1:52 PM TEACHING DIETITIAN Tejas Graves MD LAB - CHEMISTRY ORDE RABLES Performing Organization Address City/[facility] Co de Phone Number [facility] [address] [place] [phone] * CULTURE BLOOD (03/31/2024 10:28 AM TEACHING DIETITIAN) Only the most recent of2 resultswithin the time period is included. Pathologist [facility] Culture No growth day 5 ADE 04/05/2024 2:01 PM TEACHING DIETITIAN [facility] Blood PERIPHERAL BLOOD / Unknown Lab Venipuncture / Unknown 03/31/2024 10:28 AM TEACHING DIETITIAN 03/31/2024 10:32 AM TEACHING DIETITIAN Tejas Graves MD LAB - MICROBIOLOGY O RDERABLES Performing Organization Address [facility] Co de Phone Number [facility] [address] [place] [address], [facility] [phone] * ERYTHROCYTE SEDIMENTATION RATE (03/31/2024 10:16 AM TEACHING DIETITIAN) Erythrocyte Sedimentation Rate Automated 14 0 - 30 MM/HR 03/31/2024 10:36 AM TEACHING DIETITIAN [facility] Blood BLOOD SPECIMEN / Unknown Lab Venipuncture / Unknown 03/31/2024 10:16 AM TEACHING DIETITIAN 03/31/2024 10:32 AM TEACHING DIETITIAN Tejas Graves MD LAB - HEMATOLOGY ORD ERABLES Performing Organization Address City/[facility] Co de Phone Number [facility] [address] [place] [phone] * (ABNORMAL) B-TYPE NATRIURETIC PEPTIDE (03/31/2024 10:16 AM [facility]) BNP 516(H) <=100 pg/mL 03/31/2024 10:[address] [facility] Blood BLOOD SPECIMEN / Unknown Lab Venipuncture / Unknown 03/31/2024 10:16 AM TEACHING DIETITIAN 03/31/2024 10:32 AM TEACHING DIETITIAN Narrative [facility] - 03/31/2024 10:55 AM TEACHING DIETITIAN A cutoff of 100 pg/mL has been [...] Graves MD LAB - CHEMISTRY ROSEANNA KEE [facility] Organization Address City/State/ZIP Co de Phone Number [facility] [address] [facility] [place] [address] * BLOOD GASES ARTERIAL (03/31/2024 9:29 AM TEACHING DIETITIAN) Pathologist [facility] pH Arterial 7.44 7.35 - 7.45 pH 03/31/2024 9:33 AM TEACHING DIETITIAN [facility] RESP THERAP[facility] pO2 Arterial 84 80 - 100 mmHg 03/31/2024 9:33 AM TEACHING DIETITIAN [facility] RESP THERAPY pCO2 Arterial 36 35 - 45 mmHg 03/31/2024 9:33 AM TEACHING DIETITIAN [facility] RESP [facility]ERAP[facility] HCO3 Arterial 24.5 22.0 - 26.0 mmol/L 03/31/2024 9:33 AM TEACHING DIETITIAN [facility] RESP THERAPY BE Arterial 0.6 -2.0 - 2.0 mmol/L 03/31/2024 9:33 AM TEACHING DIETITIAN [facility] RESP THERAPY O2 Saturation Arterial 99 90 - 100 % 03/31/2024 9:33 AM TEACHING DIETITIAN [facility] RESP THERAPY Temperature (C) 37.0 C 9:33 AM TEACHING DIETITIAN [facility] RESP THERAPY Galen's Test Positive 03/31/2024 9:33 AM TEACHING DIETITIAN [facility] RESP THERAPY Mode Bipap 03/31/2024 9:33 AM TEACHING DIETITIAN [facility] RESP THERAPY FI O2 40.0 % 03/31/2024 9:33 AM TEACHING DIETITIAN [facility] RESP THERAPY BIPAP Insp Pressure (cmH2O) 10 03/31/2024 9:33 AM TEACHING DIETITIAN [facility] RESP THERAPY BIPAP Exp Pressure (cmH2O) 5 03/31/2024 9:33 AM TEACHING DIETITIAN [facility] RESP THERAPY P/F Ratio 210 03/31/2024 9:33 [facility] Blood ARTERIAL BLOOD SPECIMEN / Unknown 03/31/2024 9:29 AM TEACHING DIETITIAN 03/31/2024 9:29 AM TEACHING DIETITIAN Tejas Graves MD LAB - BLOOD GASES OR DERABLES Performing Organization Address [facility]/ZIP Co de Phone Number [facility] RESP THERAPY [address] [id number] * TSH REFLEX FREE T4 (03/31/2024 9:25 AM TEACHING DIETITIAN) TSH 1.568 0.350 - 4.940 uIU/mL 03/31/2024 10:20 AM TEACHING DIETITIAN [facility] Blood BLOOD SPECIMEN / Unknown Lab Venipuncture / Unknown 03/31/2024 9:25 AM TEACHING DIETITIAN 03/31/2024 9:30 AM TEACHING DIETITIAN Tejas Graves MD LAB - CHEMISTRY [place]DP[place] KEE Performing Organization Address City/[facility]/ZIP Co de Phone Number [facility] [address] [address] * (ABNORMAL) C-REACTIVE PROTEIN (03/31/2024 9:25 AM TEACHING DIETITIAN) C-Reactive Protein 1.35(H) <=0.50 mg/dL 03/31/2024 9:58 AM TEACHING DIETITIAN [facility] Blood BLOOD SPECIMEN / Unknown Lab Venipuncture / Unknown 03/31/2024 9:25 AM TEACHING DIETITIAN 03/31/2024 9:30 AM TEACHING DIETITIAN Tejas Graves MD LAB - CHEMISTRY ROSEANNA KEE [facility] [address] [place] [address] * (ABNORMAL) COMPREHENSIVE METABOLIC PANEL (03/31/2024 9:25 AM [facility]) Glucose 170(H) 70 - 99 mg/dL 03/31/2024 9:[address] [facility] Sodium 142 136 - 145 mmol/L 03/31/2024 9:[address] [facility] Potassium 4.0 3.5 - 5.1 mmol/L 03/31/2024 9:[address] [facility] Chloride 109(H) 98 - 107 mmol/L 03/31/2024 9:[address] [facility] CO2 21(L) 22 - 29 mmol/L 03/31/2024 9:[address] [facility] Calcium 9.2 8.4 - 10.4 mg/dL 03/31/2024 9:[address] [facility] Anion Gap 12 6 - 16 mmol/L 03/31/2024 9:[address] [facility] BUN 20 7 - 26 mg/dL 03/31/2024 9:[address] [facility] Creatinine 0.80 0.57 - 1.11 mg/dL 03/31/2024 9:[address] [facility] Alkaline Phosphatase 120 40 - 150 U/L 03/31/2024 9:[address] [facility] ALT 21 0 - 55 U/L 03/31/2024 9:[address] [facility] AST 33 5 - 34 U/L 03/31/2024 9:[address] [facility] Protein Total 7.0 6.4 - 8.3 gm/dL 03/31/2024 9:[address] [facility] Albumin 3.6 3.4 - 5.0 gm/dL 03/31/2024 9:[address] [facility] Bilirubin Total 0.4 0.2 - 1.2 mg/dL 03/31/2024 9:[address] [facility] eGFR by CKD-EPI 83(L) >=90 mL/min/1.7 3 m2 03/31/2024 9:[address] [facility] Blood BLOOD SPECIMEN / Unknown Lab Venipuncture / Unknown 03/31/2024 9:25 AM TEACHING DIETITIAN 03/31/2024 9:30 AM TEACHING DIETITIAN Tejas Graves MD LAB - CHEMISTRY [facility] Organization Address City/State/ZIP Co de Phone Number [facility] [address] [id number] * [place] LARYNGOSCOPY,FLEX FIBER,DIAGNOSTIC (12/15/2023 9:29 AM TEACHING DIETITIAN) Narrative Liang Rob MD - 12/15/2023 9:29 AM TEACHING DIETITIAN Liang Rob MD 12/15/2023 9:54 AM Procedure [...] Garcia MD PROCEDURE/MINOR SURG ICAL ORDERABLES * [place] LARYNGOSCOPY,FLEX FIBER,DIAGNOSTIC (06/09/2023 12:52 PM CDT) Narrative [...] Garcia MD PROCEDURE/MINOR SURG ICAL ORDERABLES * [place] LARYNGOSCOPY,FLEX FIBER,DIAGNOSTIC (01/06/2023 11:22 AM TEACHING DIETITIAN) Narrative Kash Garcia MD - 01/06/2023 11:22 AM TEACHING DIETITIAN Kash Garcia MD 01/06/2023 11:23 AM Procedure [...] included. Case Report Surgical Pathology Report Case: [id number] Authorizing Provider: Kash Garcia MD Collected: 11/21/2022 08:14 AM Ordering Location: [facility] Received: 11/21/2022 10:54 AM Pathologist: [...] vocal fold. 11/25/2022 2:50 PM CDT [facility] Gross Description The requisition and specimen(s) are identified with the patient's name, Arlet Blake. Received in formalin, specimen A , are multiple fragments of granado-brown tissue, 0.2-0.5 cm, 0.5 x 0.3 x 0.2 cm in aggregate. Specimen is submitted in toto in cassette A1. [place] 11/25/2022 2:50 PM CDT [facility] Pathologist Location at [facility] 11/25/2022 2:50 PM CDT [facility] Disclaimer The performance characteristics of all immunohistochemical and indirect immunofluorescence stains (if any) cited in this report were determined by the Histopathology [facility] of [facility]. Some of these tests were developed [...] (teaching) pathologist. 11/25/2022 2:50 PM T [facility] Embedded Images 11/25/2022 2:50 PM T [facility] Biopsy, Excision BIOPSY OF VOCAL CORD / Unknown 11/21/2022 8:14 AM CDT 11/21/2022 10:54 AM CDT Comment:Pre-op diagnosis: Vocal cord dysplasia Kash Garcia MD LAB - PATHOLOGY/CYTO LOGY ORDERABLES [facility] [address] [place] [address], [facility] [phone] * ETT LINE PERFORMABLE (11/21/2022 8:03 AM CDT) Cedrick Luciano MD - 11/21/2022 8:03 AM CDT Cedrick Reyes MD 11/21/2022 8:03 AM Endotracheal Tube Placement: Patient Location: OR. Intubation Event Date/Time: 11/21/2022 7:48 AM Procedure: intubation (32012). Procedure Section: Sedation: under general anesthesia. Indications [...] Event Date/Time: 11/21/2022 7:38 AM Procedure: intubation (99317). Procedure Section: Sedation: under general anesthesia. Indications [...] Valderrama MD GENERAL ANESTHESIA O RDERABLES * [place] LARYNGOSCOPY,FLEX FIBER,DIAGNOSTIC (10/21/2022 4:30 PM CDT) Narrative [...] Event Date/Time: 09/21/2022 9:16 AM Procedure: intubation (36089). Procedure Section: Sedation: under general anesthesia. Indications [...] AM. Staff Section Anesthesia Provider: Senia Pretty APRN-COMMERCIAL DOOR INSTALLER, Performed the procedure Rodger Hooks MD GENERAL ANESTHESIA ORDERABLES * [place] LARYNGOSCOPY,FLEX FIBER,DIAGNOSTIC (09/02/2022 8:51 AM CDT) Narrative Julio Hart MD - 09/02/2022 8:51 AM CDT Julio Hart MD 09/02/2022 9:24 AM Procedure Note Endoscopy Type: Laryngoscopy without stroboscopy 93104 Endoscope: Flexible 4mm Scope Anesthesia: Lidocaine 2% [...] MD PROCEDURE/MINOR SURG ICAL ORDERABLES Care Teams Chemical Engraver Relationship Specialty Start Date End Date Sara Irene, PSYCHOMETRIC EXAMINER-PRODUCTION ILLUSTRATOR [address] [place] [address] PCP - General Nurse Practitioner Family 7/24/23
--- OUTSIDE RECORDS SUMMARY | 2024-04-15 08:29 | XMS_ITS | Referral Summary ---
Author Organization [facility] Address [address] [place] [address] Care Team Providers Care Traffic Worker Name Role Phone Sara Irene PMO BUSINESS ANALYST-HAIR SALON MANAGER Primary Care Provid er Source Comments [facility],non-owned Affiliates and Associated Physician Practices is amultiple site organization consisting of ambulatory clinics and hospital sitesin [place], [place], [place] and [place]. This disclosure is being madepursuant to the Care Everywhere program and may not contain all information available regarding this patient. Last updated 17.[facility] Encounters Date Type Department Care Team Description 03/31/2024 9:06 AM DAM WORKER - 04/03/2024 11:42 AM [facility] Hospital Encounter [facility] 5N MEDICAL [address] [address] Juliana Siddiqui MD Sood, Anshu, MD Choudhary, Swati, MD Hospitalist Discharge Disposition: Home or Self Care 04/01/2024 8:30 AM DAM WORKER - 04/01/2024 10:00 AM [facility] Surgery [facility] - Cardiac Kitchen Aide [address] [id number] Chris Conte MD Left Heart Cath 03/31/2024 [...] fluticasone propionate (Flonase) 50 MCG/ACT nasal spray Lonepine 1 (one) spray into each nostril once [...] and heating? Not hard at all 04/01/2024 [facility] [place] [facility] Occup[facility] ional [facility] - Occupational Stress [...] were you homeless or living in a snf (including now)? No 03/31/2024 Sex and Gender Information Value Date Recorded Sex Assigned at Not on file Gender Identity Not on file Sexual Orientation Not on file Last Filed Vital Signs Vital Sign Reading Time Taken Comments Blood Pressure 142/99 04/03/2024 7:59 AM DAM WORKER Pulse 89 04/03/2024 9:18 AM DAM WORKER Temperature 36.6 C (97.9 F) 04/03/2024 7:59 AM DAM WORKER Respiratory Rate 18 04/03/2024 9:18 AM DAM WORKER Oxygen Saturation 99% 04/03/2024 9:18 AM DAM WORKER Inhaled Oxygen Concentration 40% 03/31/2024 4 :59 PM DAM WORKER Weight 73.5 kg (162 lb) 04/02/2024 4:11 AM DAM WORKER Height 157.5 cm (5' 2 ) 03/31/2024 10:03 AM DAM WORKER Body Mass Index 29.63 03/31/2024 10:03 AM DAM WORKER Functional Status Functional Status Response Date of [...] Visit [facility] [address], [place] [address] Kash Garcia MD [address] [place] [address] Procedures Procedure Name Priority Date/Time Associated Diagnosis Comments CARDIAC RHYTHM STRIP ORDER 04/05/2024 1:14 AM DAM WORKER GLUCOSE - POINT OF CARE Routine 04/03/2024 7:59 AM DAM WORKER PHOSPHORUS BLOOD STAT 04/03/2024 7:31 AM DAM WORKER MAGNESIUM BLOOD STAT 04/03/2024 7:31 AM DAM WORKER BASIC METABOLIC PANEL (CALCIUM TOTAL) STAT 04/03/2024 7:31 AM DAM WORKER PT-INR Routine 04/03/2024 7:19 AM DAM WORKER CBC W AUTO DIFFERENTIAL Routine 04/03/2024 7:19 AM DAM WORKER GLUCOSE - POINT OF CARE Routine 04/02/2024 4:54 PM DAM WORKER GLUCOSE - POINT OF CARE Routine 04/02/2024 4:41 PM DAM WORKER GLUCOSE - POINT OF CARE Routine 04/02/2024 11:28 AM DAM WORKER REJECTED SPUTUM GRAM STAIN Routine 04/02/2024 11:28 AM DAM WORKER GLUCOSE - POINT OF CARE Routine 04/02/2024 6:19 AM DAM WORKER PROCALCITONIN LEVEL AM Draw 04/02/2024 5 :54 AM DAM WORKER BASIC METABOLIC PANEL (CALCIUM TOTAL) AM Draw 04/02/2024 5:54 AM DAM WORKER PHOSPHORUS BLOOD AM Draw 04/02/2024 5:54 AM DAM WORKER MAGNESIUM BLOOD Routine 04/02/2024 5:54 AM DAM WORKER PT-INR Routine 04/02/2024 5:54 AM DAM WORKER CBC W AUTO DIFFERENTIAL Routine 04/02/2024 5:54 AM DAM WORKER XR CHEST 1VW PORTABLE Routine 04/02/2024 5:40 AM DAM WORKER Acute respiratory failure with hypoxia (HCC) GLUCOSE - POINT OF CARE Routine 04/01/2024 8:12 PM DAM WORKER GLUCOSE - POINT OF CARE Routine 04/01/2024 4:35 PM DAM WORKER SARS-COV-2 (COVID-19) FLU A/B RSV PCR RAPID STAT 04/01/2024 1:24 PM DAM WORKER GLUCOSE - POINT OF CARE Routine 04/01/2024 11:54 AM DAM WORKER ECHO COMPLETE W CONTRAST Routine 04/01/2024 11:34 AM DAM WORKER Sepsis with acute hypoxic respiratory failure, due to unspecified organism, unspecified whether septic shock present (HCC) CCL LEFT HEART CATH Routine 04/01/2024 9 :32 AM DAM WORKER PTT Timed 04/01/2024 7:06 AM DAM WORKER PT-INR Routine 04/01/2024 7:06 AM DAM WORKER HEMOGLOBIN A1C Routine 04/01/2024 7:06 AM DAM WORKER CBC W AUTO DIFFERENTIAL AM Draw 04/01/2024 7:06 AM DAM WORKER GLUCOSE - POINT OF CARE Routine 04/01/2024 6:41 AM DAM WORKER LIPID PROFILE AM Draw 04/01/2024 6:41 AM DAM WORKER BASIC METABOLIC PANEL (CALCIUM TOTAL) AM Draw 04/01/2024 6:41 AM DAM WORKER PTT Timed 03/31/2024 11:32 PM DAM WORKER GLUCOSE - POINT OF CARE Routine 03/31/2024 4:50 PM DAM WORKER PTT Routine 03/31/2024 4:39 PM DAM WORKER PT-INR Routine 03/31/2024 4:39 PM DAM WORKER TROPONIN-I HIGH SENSITIVE Routine 03/31/2024 3:[address] ANGIO CHEST PULM EMBOLISM Routine 03/31/2024 2:32 PM DAM WORKER Sepsis with acute hypoxic respiratory failure, due to unspecified organism, unspecified whether septic shock present (HCC) LACTIC ACID BLOOD STAT 03/31/2024 1:3 6 PM DAM WORKER TROPONIN-I HIGH SENSITIVE STAT 03/31/2024 12:46 PM DAM WORKER GLUCOSE - POINT OF CARE Routine 03/31/2024 12:09 PM DAM WORKER CULTURE BLOOD STAT 03/31/2024 10:28 AM DAM WORKER ERYTHROCYTE SEDIMENTATION RATE Routine 03/31/2024 10:16 AM DAM WORKER PROCALCITONIN LEVEL STAT 03/31/2024 1 0:16 AM DAM WORKER B-TYPE NATRIURETIC PEPTIDE STAT 03/31/2024 10:16 AM DAM WORKER CULTURE BLOOD STAT 03/31/2024 10:16 AM DAM WORKER XR CHEST 1VW PORTABLE Routine 03/31/2024 9:52 AM DAM WORKER Sepsis with acute hypoxic respiratory failure, due to unspecified organism, unspecified whether septic shock present (HCC) BLOOD GASES ARTERIAL RT Routine 03/31/2024 9:29 AM DAM WORKER C-REACTIVE PROTEIN Routine 03/31/2024 9: 25 AM DAM WORKER TSH REFLEX FREE T4 Routine 03/31/2024 9: 25 AM DAM WORKER LACTIC ACID BLOOD STAT 03/31/2024 9:2 5 AM DAM WORKER COMPREHENSIVE METABOLIC PANEL STAT 03/31/2024 9:25 AM DAM WORKER CBC W AUTO DIFFERENTIAL STAT 03/31/2024 9:25 AM DAM WORKER PT EVAL AND TREAT Routine 03/31/2024 9:2 3 AM DAM WORKER OT EVAL AND TREAT Routine 03/31/2024 9:2 3 AM DAM WORKER from Last 3 Months Results * CARDIAC RHYTHM STRIP ORDER (04/05/2024 1:14 AM DAM WORKER) Narrative 04/05/2024 1:14 AM DAM WORKER Ordered by an unspecified provider. Scanned Document CARDIAC SERVICES ORD ERABLES * (ABNORMAL) GLUCOSE - POINT OF CARE (04/03/2024 7:59 AM DAM WORKER) Only the most recent of11 resultswithin the time period is included. Glucose WB/POC 102(H) 70 - 99 mg/dL 04/03/2024 8:10 AM DAM WORKER [facility] Specimen Type Cap Fingerstick 2024 8:10 AM DAM WORKER [facility] Blood BLOOD SPECIMEN / Unknown 04/03/2024 7:59 AM DAM WORKER 04/03/2024 8:10 AM DAM WORKER Elodia Varela MD LAB - POINT OF CARE ORDERABLES [facility] [address] [address] * (ABNORMAL) BASIC METABOLIC PANEL (CALCIUM TOTAL) (04/03/2024 7:31 AM DAM WORKER) Only the most recent of3 resultswithin the time period is included. Pathologist [facility] Glucose 113(H) 70 - 99 mg/dL 04/03/2024 8:05 AM [facility] Sodium 139 136 - 145 mmol/L 04/03/2024 8:05 AM [facility] Potassium 4.3 3.5 - 5.1 mmol/L 04/03/2024 8:05 AM [facility] Chloride 107 98 - 107 mmol/L 04/03/2024 8:05 AM [facility] CO2 20(L) 22 - 29 mmol/L 04/03/2024 8:05 AM [facility] Calcium 9.9 8.4 - 10.4 mg/dL 04/03/2024 8:05 AM [facility] Anion Gap 12 6 - 16 mmol/L 04/03/2024 8:05 AM [facility] BUN 28(H) 7 - 26 mg/dL 04/03/2024 8:05 AM [facility] Creatinine 0.80 0.57 - 1.11 mg/dL 04/03/2024 8:05 AM [facility] eGFR by CKD-EPI 83(L) >=90 mL/min/1.7 3 m2 04/03/2024 8:05 AM [facility] Blood BLOOD SPECIMEN / Unknown Lab Venipuncture / Unknown 04/03/2024 7:31 AM DAM WORKER 04/03/2024 7:37 AM DAM WORKER Mariah Chavez PA-C LAB - CHEMISTRY ORDERABLES [facility] [address] [id number] * PHOSPHORUS BLOOD (04/03/2024 7:31 AM DAM WORKER) Only the most recent of2 resultswithin the time period is included. Phosphorus 3.2 2.5 - 4.5 mg/dL 04/03/2024 8:05 AM [facility] Blood BLOOD SPECIMEN / Unknown Lab Venipuncture / Unknown 04/03/2024 7:31 AM DAM WORKER 04/03/2024 7:37 AM DAM WORKER Mariah Chavez PA-C LAB - CHEMISTRY ORDERABLES Performing Organization Address [facility] Co de Phone Number [facility] [address] [place] [address] * MAGNESIUM BLOOD (04/03/2024 7:31 AM DAM WORKER) Only the most recent of2 resultswithin the time period is included. Magnesium 2.1 1.6 - 2.6 mg/dL 04/03/2024 8:05 AM [facility] Blood BLOOD SPECIMEN / Unknown Lab Venipuncture / Unknown 04/03/2024 7:31 AM DAM WORKER 04/03/2024 7:37 AM DAM WORKER Mariah Chavez PA-C LAB - CHEMISTRY ORDERABLES Performing Organization Address [facility] de Phone Number [facility] [address] [place] [id number] * PT-INR (04/03/2024 7:19 AM DAM WORKER) Only the most recent of4 resultswithin the time period is included. PT 13.6 12.1 - 14.8 sec 04/03/2024 7:48 AM [facility] INR 1.0 0.9 - 1.1 04/03/2024 7:48 AM [facility] Blood BLOOD SPECIMEN / Unknown Lab Venipuncture / Unknown 04/03/2024 7:19 AM DAM WORKER 04/03/2024 7:31 AM DAM WORKER Narrative [facility] - 04/03/2024 7:48 AM DAM WORKER Conventional Warfarin Anticoagulant Therapy: INR Reference Range: 2.0-3.0 Intensive Warfarin Anticoagulant Therapy: INR Reference Range: 2.5-3.5 Emanuel Simons MD LAB - COAGULA TION ORDERABLES [facility] [address] [address] * CBC W AUTO DIFFERENTIAL (04/03/2024 7:19 AM [facility]) Only the most recent of4 resultswithin the time period is included. WBC 7.5 4.0 - 10.7 x10E9/L 04/03/2024 8:02 AM [facility] RBC Count 4.92 3.90 - 5.20 x10E12/L 04/03/2024 8:02 AM [facility] Hemoglobin 14.7 11.9 - 15.8 g/dL 04/03/2024 8:02 AM [facility] Hematocrit 42.5 34.8 - 46.1 % 04/03/2024 8:02 AM [facility] MCV 86.4 80.0 - 98.0 fL 04/03/2024 8:02 AM [facility] MCH 29.9 26.7 - 33.6 pg 04/03/2024 8:02 AM [facility] MCHC 34.6 31.7 - 36.3 g/dL 04/03/2024 8:02 AM [facility] RDW-CV 13.7 11.3 - 14.8 % 04/03/2024 8:02 AM [facility] Platelet Count 209 150 - 420 x10E9/L 04/03/2024 8:02 AM [facility] MPV 11.2 7.8 - 11.4 fL 04/03/2024 8:02 AM [facility] Neutrophil % 64.5 41.0 - 74.0 % 04/03/2024 8:02 AM [facility] Lymphocyte % 26.1 17.0 - 47.0 % 04/03/2024 8:02 AM [facility] Monocyte % 6.6 3.0 - 11.0 % 04/03/2024 8:02 AM [facility] Eosinophil % 1.3 0.0 - 7.0 % 04/03/2024 8:02 AM [facility] Basophil % 1.2 0.0 - 1.6 % 04/03/2024 8:02 AM [facility] Immature Granulocytes % 0.3 0.0 - 1.0 % 04/03/2024 8:02 AM [facility] Neutrophil Absolute 4.82 1.60 - 7.50 x10E9/L 04/03/2024 8:02 AM [facility] Lymphocyte Absolute 1.95 1.00 - 4.40 x10E9/L 04/03/2024 8:02 AM [facility] Monocyte Absolute 0.49 0.15 - 1.00 x10E9/L 04/03/2024 8:02 AM [facility] Eosinophil Absolute 0.10 0.00 - 0.60 x10E9/L 04/03/2024 8:02 AM [facility] Basophil Absolute 0.09 0.00 - 0.13 x10E9/L 04/03/2024 8:02 AM [facility] Blood BLOOD SPECIMEN / Unknown Lab Venipuncture / Unknown 04/03/2024 7:19 AM DAM WORKER 04/03/2024 7:31 AM DAM WORKER Emanuel Simons MD LAB - HEMATOL OGY ORDERABLES [facility] [address] [place] [address] * REJECTED SPUTUM GRAM STAIN (04/02/2024 11:28 AM DAM WORKER) Gram Stain < 25 per low power field Polymorphonuclear cells. Consistent with poor quality specimen. 04/02/2024 3:51 PM DAM WORKER [facility] MICROBIOLOGY Gram Stain Recollect if clinically indicated. 04/02/2024 3:51 PM DAM WORKER [facility] MICROBIOLOGY Microbiology SPUTUM / Unknown Collection / Unknown 04/02/2024 11:28 AM DAM WORKER 04/02/2024 11:34 AM DAM WORKER Wei Greco MD LAB - MICROBIOLOGY O RDERABLES [facility] MICROBIOLOGY [address] [address] [phone] * PROCALCITONIN LEVEL (04/02/2024 5:54 AM DAM WORKER) Only the most recent of2 resultswithin the time period is included. Procalcitonin 0.07 <0.10 ng/mL 04/02/2024 6:56 AM DAM WORKER [facility] Blood BLOOD SPECIMEN / Unknown Lab Venipuncture / Unknown 04/02/2024 5:54 AM DAM WORKER 04/02/2024 6:17 AM DAM WORKER Narrative [facility] - 04/02/2024 6:56 AM DAM WORKER The change in procalcitonin (PCT) concentration [...] Change in Procalcitonin Calculator is available at [email or web address] If clinical picture has not improved and PCT remains high, reevaluate and consider treatment failure or other causes. Rodríguez Benz MD LAB - CHEMISTRY ROSEANNA KEE [facility] Organization Address City/State/ZIP Co de Phone Number [facility] [address] [address] * XR Chest 1Vw Portable (04/02/2024 5:40 AM DAM WORKER) Only the most recent of2 resultswithin the time period is included. Anatomical Region Laterality Modality Chest Radiographic Pattie ging 04/02/2024 7:58 AM DAM WORKER Impressions 04/02/2024 8:08 AM DAM WORKER IMPRESSION: Decreased bilateral airspace disease. Edited by Phoebe Rico on 04/02/2024 8:03 AM > Interpreting Provider: Rod Palma MD on 04/02/2024 8:08 AM Narrative 04/02/2024 8:08 AM DAM WORKER XR CHEST 1VW PORTABLE INDICATION: J96.01: [...] A/B RSV PCR RAPID (04/01/2024 1:24 PM DAM WORKER) COVID-19 PCR Not detected Not detected 04/01/19 2:24 PM DAM WORKER [facility] Influenza A PCR Not detected Not detected 04/01/2024 2:24 PM DAM WORKER [facility] Influenza B PCR Not detected Not detected 04/01/2024 2:24 PM DAM WORKER [facility] RSV PCR Not detected Not detected 04/01/2024 2:24 PM DAM WORKER [facility] Microbiology SPECIMEN FROM NASOPHARYNGEAL STRUCTURE / Unknown Collection / Unknown 04/01/2024 1:24 PM DAM WORKER 04/01/2024 1:39 PM DAM WORKER Narrative [facility] - 04/01/2024 2:24 PM DAM WORKER This nucleic acid amplification assay has [...] Varela MD LAB - MICROBIOLOGY O RDERABLES [facility] [address] [address] * ECHO COMPLETE W CONTRAST (04/01/2024 11:34 AM DAM WORKER) AV pk grad 8.2 mmHg [facility] [...] Laterality Modality Ultrasound 04/01/2024 11:0 0 AM DAM WORKER Narrative 04/01/2024 5:26 PM DAM WORKER Summary * Normal left ventricular size, [...] 11:00 AM Patient Status: I/P Study Site: [facility] Primary Location: [facility] EStudy Info Technical Quality: Technically Difficult [...] Provider: Tejas Graves Attending Physician: Tejas Graves Slip Laster: Gaby Morales Left Ventricle Normal left ventricular [...] 11:00 AM Patient Status: I/P Study Site: [facility] Primary Location: [facility] EStudy Info Technical Quality: Technically Difficult [...] Provider: Tejas Graves Attending Physician: Tejas Graves Slip Laster: Gaby Andrew Left Ventricle Normal left ventricular [...] CCL LEFT HEART CATH (04/01/2024 9:32 AM DAM WORKER) Anatomical Region Laterality Modality X-Ray Angiograph y Narrative 04/01/2024 9:46 AM DAM WORKER Procedures Moderate sedation Left heart cardiac catheterization, selective coronary angiogram and left ventriculogram Indication-NSTEMI DATA ENTRY SPECIALIST-Chris Conte MD After informed consent was obtained the patient was transferred to the cardiac catheterization laboratory where bilateral groin areas were draped and prepped in sterile fashion. 1% lidocaine was utilized to achieve local anesthesia in the right femoral area. Utilizing Doppler guided ultrasound we accessed the right femoral artery and placed a 6 B[place]udian sheath without any problems. A 5 [place]udian FL4 diagnostic catheter was utilized to cannulate the left main coronary artery and several angiographic views were obtained in different orthogonal planes of the left main LAD and left circumflex arteries. The catheter was exchanged over the wire for a 5 [place]udian FR4 and that catheter was utilized to [...] arteriotomy site was closed utilizing a 6 [place] Angio-Seal device with good hemostasis and no complications Estimated blood loss 30 cc Complications none Sedation Versed 2 mg IV and fentanyl 50 mcg IV Procedure Details Estimated Blood Loss: 30 mL Chris Conte MD CV CARDIAC CATH CUPI D PROCS * HEMOGLOBIN A1C (04/01/2024 7:06 AM DAM WORKER) Hemoglobin A1c 5.4 <5.7 % 04/01/2024 9:20 AM [facility] Estimated Average Glucose 108 mg/dL 04/01/2024 9:20 AM [facility] Blood BLOOD SPECIMEN / Unknown Lab Venipuncture / Unknown 04/01/2024 7:06 AM DAM WORKER 04/01/2024 7:17 AM DAM WORKER Narrative [facility] - 04/01/2024 9:20 AM DAM WORKER HbA1c Interpretation: Normal: < 5.7% Pre-diabetes: 5.7-6.4% [...] Organization Address City/State/ZIP Co de Phone Number [facility] [address] [place] [address] * (ABNORMAL) PTT (04/01/2024 7:06 AM DAM WORKER) Only the most recent of3 resultswithin the time period is included. PTT 71.8(H) 23.0 - 38.4 sec 04/01/2024 7:35 AM DAM WORKER [facility] Blood BLOOD SPECIMEN / Unknown Lab Venipuncture / Unknown 04/01/2024 7:06 AM DAM WORKER 04/01/2024 7:17 AM DAM WORKER Narrative [facility] - 04/01/2024 7:35 AM DAM WORKER Heparin Therapeutic Range for PTT: 69.0 - 110.0 seconds. Emanuel Simons MD LAB - COAGULA TION ORDERABLES Performing Organization Address City/[facility]/ZIP Co de Phone Number [facility] [address] [place] [address] * (ABNORMAL) LIPID PROFILE (04/01/2024 6:41 AM DAM WORKER) Cholesterol 195 <200 mg/dL 04/01/2024 10:41 AM [facility] Triglycerides 272(H) <150 mg/dL 04/01/2024 10:41 AM [facility] HDL Cholesterol 35(L) >40 mg/dL 10:41 AM [facility] [...] Lab Venipuncture / Unknown 04/01/2024 6:41 AM DAM WORKER 04/01/2024 6:46 AM DAM WORKER Tejas Graves MD LAB - CHEMISTRY ROSEANNA KEE [facility] [address] [place] [address] * (ABNORMAL) TROPONIN-I HIGH SENSITIVE (03/31/2024 3:11 PM DAM WORKER) Only the most recent of2 resultswithin the time period is included. Troponin I High Sensitive 5,189(HH) <=14 ng/L 03/31/2024 4:00 PM DAM WORKER [facility] Blood BLOOD SPECIMEN / Unknown Lab Venipuncture / Unknown 03/31/2024 3:11 PM DAM WORKER 03/31/2024 3:19 PM DAM WORKER Tejas Graves MD LAB - CHEMISTRY SHIVANIE CHILANGO [facility] Organization Address City/State/ZIP Co de Phone Number [facility] [address] [place] [address] * CT Angio Chest Pulm Embolism (03/31/2024 2:32 PM DAM WORKER) Anatomical Region Laterality Modality Chest Computed Tomogra phy 03/31/2024 2:41 PM DAM WORKER Impressions 03/31/2024 2:43 PM DAM WORKER IMPRESSION: 1. No pulmonary embolism. 2. Findings most consistent with congestive heart failure with interstitial and alveolar pulmonary edema and small pleural effusion. Differential includes infection. > Interpreting Provider: Daniele Pino MD on 03/31/2024 2:43 PM Narrative 03/31/2024 2:43 PM DAM WORKER PROCEDURE: CT ANGIO CHEST PULM EMBOLISM [...] (ABNORMAL) LACTIC ACID BLOOD (03/31/2024 1:36 PM DAM WORKER) Only the most recent of2 resultswithin the time period is included. Pathologist [facility] Lactic Acid 2.9(H) <=2 mmol/L 03/31/2024 2:07 PM DAM WORKER [facility] Blood BLOOD SPECIMEN / Unknown Lab Venipuncture / Unknown 03/31/2024 1:36 PM DAM WORKER 03/31/2024 1:52 PM DAM WORKER Tejas Graves MD LAB - CHEMISTRY ROSEANNA KEE Performing Organization Address [facility]/ZIP Co de Phone Number [facility] [address] [place] [address] * CULTURE BLOOD (03/31/2024 10:28 AM DAM WORKER) Only the most recent of2 resultswithin the time period is included. Pathologist [facility] Culture No growth day 5 ADE 04/05/2024 2:01 PM DAM WORKER [facility] Blood PERIPHERAL BLOOD / Unknown Lab Venipuncture / Unknown 03/31/2024 10:28 AM DAM WORKER 03/31/2024 10:32 AM DAM WORKER Tejas Graves MD LAB - MICROBIOLOGY O RDERABLES Performing Organization Address [facility] Co de Phone Number [facility] [address] [place] [address] [phone] * ERYTHROCYTE SEDIMENTATION RATE (03/31/2024 10:16 AM DAM WORKER) Pathologist [facility] Erythrocyte Sedimentation Rate Automated 14 0 - 30 MM/HR 03/31/2024 10:36 AM DAM WORKER [facility] Blood BLOOD SPECIMEN / Unknown Lab Venipuncture / Unknown 03/31/2024 10:16 AM DAM WORKER 03/31/2024 10:32 AM DAM WORKER Tejas Graves MD LAB - HEMATOLOGY ORD ERABLES Performing Organization Address [facility] Co de Phone Number [facility] [address], [place] [id number] * (ABNORMAL) B-TYPE NATRIURETIC PEPTIDE (03/31/2024 10:16 AM DAM WORKER) Pathologist [facility] BNP 516(H) <=100 pg/mL 03/31/2024 10:55 AM [facility] Blood BLOOD SPECIMEN / Unknown Lab Venipuncture / Unknown 03/31/2024 10:16 AM DAM WORKER 03/31/2024 10:32 AM DAM WORKER [facility] - 03/31/2024 10:55 AM DAM WORKER A cutoff of 100 pg/mL has [...] Graves MD LAB - CHEMISTRY ROSEANNA KEE [facility] Organization Address City/State/ZIP Co de Phone Number [facility] [address] [facility] [place] [address] * BLOOD GASES ARTERIAL (03/31/2024 9:29 AM DAM WORKER) pH Arterial 7.44 7.35 - 7.45 pH 03/31/2024 9:33 AM DAM WORKER [facility] RESP THERAPY pO2 Arterial 84 80 - 100 mmHg 03/31/2024 9:33 AM DAM WORKER [facility] RESP THERAPY pCO2 Arterial 36 35 - 45 mmHg 03/31/2024 9:33 AM DAM WORKER [facility] RESP THERAPY HCO3 Arterial 24.5 22.0 - 26.0 mmol/L 03/31/2024 9:33 AM DAM [employer] [facility] RESP THERAPY BE Arterial 0.6 -2.0 - 2.0 mmol/L 03/31/2024 9:33 AM [employer] [facility] RESP THERAPY O2 Saturation Arterial 99 90 - 100 % 03/31/2024 9:33 AM DAM WORK[employer] [facility] RESP THERAPY Temperature (C) 37.0 C 9:33 AM DAM WORK[employer] [facility] RESP THERAPY Galen's Test Positive 03/31/2024 9:33 AM DAM [employer] [facility] RESP THERAPY Mode Bipap 03/31/2024 9:33 AM DAM [employer] [facility] RESP THERAPY FI O2 40.0 % 03/31/2024 9:33 AM DAM [employer] [facility] RESP THERAPY BIPAP Insp Pressure (cmH2O) 10 03/31/2024 9:33 AM DAM [employer] [facility] RESP THERAPY BIPAP Exp Pressure (cmH2O) 5 03/31/2024 9:33 AM [employer] [facility] RESP THERAPY P/F Ratio 210 03/31/2024 9:33 AM DAM [employer] [facility] RESP THERAPY Blood ARTERIAL BLOOD SPECIMEN / Unknown 03/31/2024 9:29 AM DAM WORKER 03/31/2024 9:29 AM DAM WORKER Tejas Graves MD LAB - BLOOD GASES OR DERABLES Performing Organization Address City/[facility]/ZIP Co de Phone Number [facility] RESP THERAPY [address] [id number], [facility] * TSH REFLEX FREE T4 (03/31/2024 9:25 AM DAM WORKER) TSH 1.568 0.350 - 4.940 uIU/mL 03/31/2024 10:20 AM DAM WORKER [facility] Blood BLOOD SPECIMEN / Unknown Lab Venipuncture / Unknown 03/31/2024 9:25 AM DAM WORKER 03/31/2024 9:30 AM DAM WORKER Tejas Graves MD LAB - CHEMISTRY ROSEANNA KEE Performing Organization Address [facility] Co de Phone Number [facility] [address] [address] * (ABNORMAL) C-REACTIVE PROTEIN (03/31/2024 9:25 AM DAM WORKER) C-Reactive Protein 1.35(H) <=0.50 mg/dL 03/31/2024 9:58 AM DAM WORKER [facility] Blood BLOOD SPECIMEN / Unknown Lab Venipuncture / Unknown 03/31/2024 9:25 AM DAM WORKER 03/31/2024 9:30 AM DAM WORKER Tejas Graves MD LAB - CHEMISTRY ORDPaul KEE Performing Organization Address City/[facility]/ZIP Co de Phone Number [facility] [address] [phone] * (ABNORMAL) COMPREHENSIVE METABOLIC PANEL (03/31/2024 9:25 AM [facility]) Glucose 170(H) 70 - 99 mg/dL 03/31/2024 9:47 AM [facility] Sodium 142 136 - 145 mmol/L 03/31/2024 9:47 AM [facility] Potassium 4.0 3.5 - 5.1 mmol/L 03/31/2024 9:47 AM [facility] Chloride 109(H) 98 - 107 mmol/L 03/31/2024 9:47 AM [facility] CO2 21(L) 22 - 29 mmol/L 03/31/2024 9:47 AM [facility] Calcium 9.2 8.4 - 10.4 mg/dL 03/31/2024 9:47 AM [facility] Anion Gap 12 6 - 16 mmol/L 03/31/2024 9:47 AM [facility] BUN 20 7 - 26 mg/dL 03/31/2024 9:47 AM [facility] Creatinine 0.80 0.57 - 1.11 mg/dL 03/31/2024 9:47 AM [facility] Alkaline Phosphatase 120 40 - 150 U/L 03/31/2024 9:47 AM [facility] ALT 21 0 - 55 U/L 03/31/2024 9:47 AM [facility] AST 33 5 - 34 U/L 03/31/2024 9:47 AM [facility] Protein Total 7.0 6.4 - 8.3 gm/dL 03/31/2024 9:47 AM [facility] Albumin 3.6 3.4 - 5.0 gm/dL 03/31/2024 9:47 AM [facility] Bilirubin Total 0.4 0.2 - 1.2 mg/dL 03/31/2024 9:47 AM [facility] eGFR by CKD-EPI 83(L) >=90 mL/min/1.7 3 m2 03/31/2024 9:47 AM [facility] Blood BLOOD SPECIMEN / Unknown Lab Venipuncture / Unknown 03/31/2024 9:25 AM [facility] 03/31/2024 9:30 AM DAM WORKER Tejas Graves MD LAB - CHEMISTRY ROSEANNA KEE [facility] [address] [id number] from Last 3 Months Advance Directives * Full Code (Latest Code Status on File) Date Activated Date Inactivated Comments 04/01/2024 9:41 AM 04/03/2024 12:47 PM * Full Code Date Activated Date Inactivated Comments 03/31/2024 9:24 AM 04/01/2024 9:41 AM Care Teams Traffic Worker Relationship Specialty Start Date End Date Sara Irene, [employer] BUSINESS ANALYST-[employer] MANAGER [address] [place] [address] PCP - General Nurse Practitioner Family 08/29/22
--- OUTSIDE RECORDS SUMMARY | 2024-04-15 08:29 | XMS_ITS | Clinical Summary ---
Author Organization [facility] Address [address] [place] [address] Care Team Providers Care Fountain Pen Turner Name Role Phone Sara Irene APRN-INSOLE TAPE STITCHER [employer] Primary Care Provid er Source Comments [facility],non-owned Affiliates and Associated Physician Practices is amultiple site organization consisting of ambulatory clinics and hospital sitesin [place], [place], [place] and [place]. This disclosure is being madepursuant to the Care Everywhere program and may not contain all information available regarding this patient. Last updated 17.[facility] Allergies Active Allergy Reactions Criticality Noted Date [...] fluticasone propionate (Flonase) 50 MCG/ACT nasal spray [place] 1 (one) spray into each nostril once [...] Department Care Team Description 04/01/2024 8:30 AM [employer]ARM SUPERVISOR - 04/01/2024 10:00 AM [facility] Surgery [facility] - Cardiac Cvicu Rn [address] [address] Chris Conte MD Left Heart Cath 03/31/2024 9:06 AM [employer]Y [employer]ARM SUPERVISOR - 04/03/2024 11:42 AM [facility] Hospital Encounter [facility] 5N MEDICAL [address] [address] Juliana Siddiqui MD Sood, MD Nichole Lazaro [...] and heating? Not hard at all 04/01/2024 [facility] - Occupational Stress [...] any time in the past 12 m [facility], were you homeless or living in a longterm (including now)? No 03/31/2024 Sex and Gender Information Value Date Recorded Sex Assigned at Not on file Gender Identity Not on file Sexual Orientation Not on file Last Filed Vital Signs Vital Sign Reading Time Taken Comments Blood Pressure 142/99 04/03/2024 7:59 AM [employer]ARM SUPERVISOR Pulse 89 04/03/2024 9:18 AM [employer]ARM SUPERVISOR Temperature 36.6 C (97.9 F) 04/03/2024 7:59 AM [employer]ARM SUPERVISOR Respiratory Rate 18 04/03/2024 9:18 AM [employer]ARM SUPERVISOR Oxygen Saturation 99% 04/03/2024 9:18 AM [employer]ARM SUPERVISOR Inhaled Oxygen Concentration 40% 03/31/2024 4 :59 PM [employer]ARM SUPERVISOR Weight 73.5 kg (162 lb) 04/02/2024 4:11 AM [employer]ARM SUPERVISOR Height 157.5 cm (5' 2 ) 03/31/2024 10:03 AM [employer]ARM SUPERVISOR Body Mass Index 29.63 03/31/2024 10:03 AM [employer]ARM SUPERVISOR Plan of Treatment Upcoming Encounters Date Type Department Care Team (Late st Contact Info) Description 06/14/2024 9:00 AM CDT Office Visit [facility] - ENT [address], [place] [address] Kash Garcia MD [address] [facility] 2L [place] [address] Health Maintenance Due Date Last [...] CARDIAC RHYTHM STRIP ORDER 04/05/2024 1:14 AM [employer]ARM SUPERVISOR GLUCOSE - POINT OF CARE Routine 04/03/2024 7:59 AM [employer]ARM SUPERVISOR PHOSPHORUS BLOOD STAT 04/03/2024 7:31 AM [employer]ARM SUPERVISOR MAGNESIUM BLOOD STAT 04/03/2024 7:31 AM [employer]EARCH DA[employer] FARM SUPERVISOR BASIC METABOLIC PANEL (CALCIUM TOTAL) STAT 04/03/2024 7:31 AM [employer] FARM SUPERVISOR PT-INR Routine 04/03/2024 7:19 AM [employer]ARM SUPERVISOR CBC W AUTO DIFFERENTIAL Routine 04/03/2024 7:19 AM [employer] FARM SUPERVISOR GLUCOSE - POINT OF CARE Routine 04/02/2024 4:54 PM [employer]ARM SUPERVISOR GLUCOSE - POINT OF CARE Routine 04/02/2024 4:41 PM [employer]ARM SUPERVISOR GLUCOSE - POINT OF CARE Routine 04/02/2024 11:28 AM [employer] FARM SUPERVISOR REJECTED SPUTUM GRAM STAIN Routine 04/02/2024 11:28 AM [employer]ARM SUPERVISOR GLUCOSE - POINT OF CARE Routine 04/02/2024 6:19 AM [employer]ARM SUPERVISOR PROCALCITONIN LEVEL AM Draw 04/02/2024 5 :54 AM [employer]EARCH [employer]IRY FARM SUPERVISOR BASIC METABOLIC PANEL (CALCIUM TOTAL) AM Draw 04/02/2024 5:54 AM [employer]EARCH [employer]ARM SUPERVISOR PHOSPHORUS BLOOD AM Draw 04/02/2024 5:54 AM [employer]ARM SUPERVISOR MAGNESIUM BLOOD Routine 04/02/2024 5:54 AM [employer]EARCH [employer] FARM SUPERVISOR PT-INR Routine 04/02/2024 5:54 AM [employer]EARCH [employer]ARM SUPERVISOR CBC W AUTO DIFFERENTIAL Routine 04/02/2024 5:54 AM [employer]EARCH [employer]ARM SUPERVISOR XR CHEST 1VW PORTABLE Routine 04/02/2024 5:40 AM [employer]ARM SUPERVISOR Acute respiratory failure with hypoxia (HCC) GLUCOSE - POINT OF CARE Routine 04/01/2024 8:12 PM [employer]EARCH [employer]Y [employer]ARM SUPERVISOR GLUCOSE - POINT OF CARE Routine 04/01/2024 4:35 PM [employer]EARCH DA[employer]Y [employer]ARM SUPERVISOR SARS-COV-2 (COVID-19) FLU A/B RSV PCR RAPID STAT 04/01/2024 1:24 PM [employer]EARCH DAIRY FARM SUPERVISOR GLUCOSE - POINT OF CARE Routine 04/01/2024 11:54 AM [employer]EARCH [employer]Y [employer]ARM SUPERVISOR ECHO COMPLETE W CONTRAST Routine 04/01/2024 11:34 AM [employer]EARCH [employer] FARM SUPERVISOR Sepsis with acute hypoxic respiratory failure, due to unspecified organism, unspecified whether septic shock present (HCC) CCL LEFT HEART CATH Routine 04/01/2024 9 :32 AM [employer]EARCH [employer]Y FARM SUPERVISOR PTT Timed 04/01/2024 7:06 AM [employer]EARCH DA[employer] FARM SUPERVISOR PT-INR Routine 04/01/2024 7:06 AM [employer]ARM SUPERVISOR HEMOGLOBIN A1C Routine 04/01/2024 7:06 AM [employer]ARM SUPERVISOR CBC W AUTO DIFFERENTIAL AM Draw 04/01/2024 7:06 AM [employer]Y FARM SUPERVISOR GLUCOSE - POINT OF CARE Routine 04/01/2024 6:41 AM [employer]ARM SUPERVISOR LIPID PROFILE AM Draw 04/01/2024 6:41 AM [employer]EARCH DAIRY FARM SUPERVISOR BASIC METABOLIC PANEL (CALCIUM TOTAL) AM Draw 04/01/2024 6:41 AM RESEARCH DAIRY FARM SUPERVISOR PTT Timed 03/31/2024 11:32 PM [employer]EARCH DAIRY FARM SUPERVISOR GLUCOSE - POINT OF CARE Routine 03/31/2024 4:50 PM RESEARCH DAIRY FARM SUPERVISOR PTT Routine 03/31/2024 4:39 PM [employer]EARCH DA[employer]Y FARM SUPERVISOR PT-INR Routine 03/31/2024 4:39 PM [employer]EARCH [employer]IR[employer] FARM SUPERVISOR TROPONIN-I HIGH SENSITIVE Routine 03/31/2024 3:[address] [employer] [address] ANGIO CHEST PULM EMBOLISM Routine 03/31/2024 2:32 PM [employer]ARM SUPERVISOR Sepsis with acute hypoxic respiratory failure, due to unspecified organism, unspecified whether septic shock present (HCC) LACTIC ACID BLOOD STAT 03/31/2024 1:3 6 PM [employer]ARM SUPERVISOR TROPONIN-I HIGH SENSITIVE STAT 03/31/2024 12:46 PM [employer]EARCH DA[employer]Y FARM SUPERVISOR GLUCOSE - POINT OF CARE Routine 03/31/2024 12:09 PM [employer]EARCH [employer]ARM SUPERVISOR CULTURE BLOOD STAT 03/31/2024 10:28 AM [employer]EARCH [employer] FARM SUPERVISOR ERYTHROCYTE SEDIMENTATION RATE Routine 03/31/2024 10:16 AM [employer]EARCH [employer]ARM SUPERVISOR PROCALCITONIN LEVEL STAT 03/31/2024 1 0:16 AM [employer]EARCH [employer]IRY FARM SUPERVISOR B-TYPE NATRIURETIC PEPTIDE STAT 03/31/2024 10:16 AM [employer]EARCH [employer]IRY FARM SUPERVISOR CULTURE BLOOD STAT 03/31/2024 10:16 AM [employer]EARCH DAIRY FARM SUPERVISOR XR CHEST 1VW PORTABLE Routine 03/31/2024 9:52 AM [employer]ARM SUPERVISOR Sepsis with acute hypoxic respiratory failure, due to unspecified organism, unspecified whether septic shock present (HCC) BLOOD GASES ARTERIAL RT Routine 03/31/2024 9:29 AM [employer]EARCH [employer]Y [employer]ARM SUPERVISOR C-REACTIVE PROTEIN Routine 03/31/2024 9: 25 AM [employer]EARCH [employer]Y [employer]ARM SUPERVISOR TSH REFLEX FREE T4 Routine 03/31/2024 9: 25 AM [employer]ARM SUPERVISOR LACTIC ACID BLOOD STAT 03/31/2024 9:2 5 AM [employer]EARCH [employer]ARM SUPERVISOR COMPREHENSIVE METABOLIC PANEL STAT 03/31/2024 9:25 AM [employer]ARM SUPERVISOR CBC W AUTO DIFFERENTIAL STAT 03/31/2024 9:25 AM [employer]EARCH [employer]Y FARM SUPERVISOR PT EVAL AND TREAT Routine 03/31/2024 9:2 3 AM [employer]EARCH [employer]Y [employer]ARM SUPERVISOR OT EVAL AND TREAT Routine 03/31/2024 9:2 3 AM RESEARCH DAIRY FARM SUPERVISOR from Last 3 Months Results * CARDIAC RHYTHM STRIP ORDER (04/05/2024 1:14 AM RESEARCH DAIRY FARM SUPERVISOR) Narrative 04/05/2024 1:14 AM RESEARCH DAIRY FARM SUPERVISOR Ordered by an unspecified provider. Scanned Document CARDIAC SERVICES ORD ERABLES * (ABNORMAL) GLUCOSE - POINT OF CARE (04/03/2024 7:59 AM RESEARCH DAIRY FARM SUPERVISOR) Only the most recent of11 resultswithin the time period is included. Glucose WB/POC 102(H) 70 - 99 mg/dL 04/03/2024 8:10 AM [employer]EARCH [employer]IRY FARM SUPERVISOR [facility] Specimen Type Cap Fingerstick 2024 8:10 AM RESEARCH DAIRY FARM SUPERVISOR [facility] Blood BLOOD SPECIMEN / Unknown 04/03/2024 7:59 AM [employer] FARM SUPERVISOR 04/03/2024 8:10 AM [employer]ARM SUPERVISOR Elodia Varela MD LAB - POINT OF CARE ORDERABLES [facility] [place] [address] * (ABNORMAL) BASIC METABOLIC PANEL (CALCIUM TOTAL) (04/03/2024 7:31 AM RESEARCH DAIRY FARM SUPERVISOR) Only the most recent of3 resultswithin the time period is included. Glucose 113(H) 70 - 99 mg/dL 04/03/2024 8:05 AM RESEARCH DAIRY FARM SUPERVISOR [facility] Sodium 139 136 - 145 mmol/L 04/03/2024 8:[address] [facility] Potassium 4.3 3.5 - 5.1 mmol/L 04/03/2024 8:[address] [facility] Chloride 107 98 - 107 mmol/L 04/03/2024 8:[address] [facility] CO2 20(L) 22 - 29 mmol/L 04/03/2024 8:[address] [facility] Calcium 9.9 8.4 - 10.4 mg/dL 04/03/2024 8:[address] [facility] Anion Gap 12 6 - 16 mmol/L 04/03/2024 8:[address] [facility] BUN 28(H) 7 - 26 mg/dL 04/03/2024 8:[address] [facility] Creatinine 0.80 0.57 - 1.11 mg/dL 04/03/2024 8:[address] [facility] eGFR by CKD-EPI 83(L) >=90 mL/min/1.7 3 m2 04/03/2024 8:[address] [facility] Blood BLOOD SPECIMEN / Unknown Lab Venipuncture / Unknown 04/03/2024 7:31 AM [employer] FARM SUPERVISOR 04/03/2024 7:37 AM [facility] Mariah Chavez PA-C LAB - CHEMISTRY ORDERABLES [facility] [address] [place] [address] * PHOSPHORUS BLOOD (04/03/2024 7:31 AM [facility]) Only the most recent of2 resultswithin the time period is included. Phosphorus 3.2 2.5 - 4.5 mg/dL 04/03/2024 8:[address] [facility] Blood BLOOD SPECIMEN / Unknown Lab Venipuncture / Unknown 04/03/2024 7:31 AM [employer]ARM SUPERVISOR 04/03/2024 7:37 AM [facility] Mariah Chavez PA-C LAB - CHEMISTRY ORDERABLES [facility] [place] [id number] * MAGNESIUM BLOOD (04/03/2024 7:31 AM RESE[employer]ARM SUPERVISOR) Only the most recent of2 resultswithin the time period is included. Pathologist [facility] Magnesium 2.1 1.6 - 2.6 mg/dL 04/03/2024 8:05 AM [employer]EARCH DAIRY [employer]ARM SUPERVISOR [facility] Blood BLOOD SPECIMEN / Unknown Lab Venipuncture / Unknown 04/03/2024 7:31 AM [employer] FARM SUPERVISOR 04/03/2024 7:37 AM [employer]ARM SUPERVISOR Mariah Chavez PA-C LAB - CHEMISTRY ORDERABLES Performing Organization Address [facility] [address]/[facility] Co de Phone Number [facility] [place] [address] * PT-INR (04/03/2024 7:19 AM RESE[employer]ARM SUPERVISOR) Only the most recent of4 resultswithin the time period is included. Pathologist [facility] PT 13.6 12.1 - 14.8 sec 04/03/2024 7:48 AM [employer] SUPERVISOR [facility] INR 1.0 0.9 - 1.1 04/03/2024 7:[address] [facility] Blood BLOOD SPECIMEN / Unknown Lab Venipuncture / Unknown 04/03/2024 7:19 AM [employer]ARM SUPERVISOR 04/03/2024 7:31 AM [employer]ARM SUPERVISOR Narrative [facility] - 04/03/2024 7:48 AM [employer]ARM SUPERVISOR Conventional Warfarin Anticoagulant Therapy: INR Reference Range: 2.0-3.0 Intensive Warfarin Anticoagulant Therapy: INR Reference Range: 2.5-3.5 Emanuel Simons MD LAB - COAGULA TION ORDERABLES Performing Organization Address City/[facility] [address]/ZIP Co de Phone Number [facility] [place] [id number] * CBC W AUTO DIFFERENTIAL (04/03/2024 7:19 AM RESE[employer]ARM SUPERVISOR) Only the most recent of4 resultswithin the time period is included. Pathologist [facility] WBC 7.5 4.0 - 10.7 x10E9/L 04/03/2024 8:[address] [facility] RBC Count 4.92 3.90 - 5.20 x10E12/L 04/03/2024 8:[address] [facility] Hemoglobin 14.7 11.9 - 15.8 g/dL 04/03/2024 8:[address] [facility] Hematocrit 42.5 34.8 - 46.1 % 04/03/2024 8:[address] [facility] MCV 86.4 80.0 - 98.0 fL 04/03/2024 8:[address] [facility] MCH 29.9 26.7 - 33.6 pg 04/03/2024 8:[address] [facility] MCHC 34.6 31.7 - 36.3 g/dL 04/03/2024 8:[address] [facility] RDW-CV 13.7 11.3 - 14.8 % 04/03/2024 8:[address] [facility] Platelet Count 209 150 - 420 x10E9/L 04/03/2024 8:[address] [facility] MPV 11.2 7.8 - 11.4 fL 04/03/2024 8:[address] [facility] Neutrophil % 64.5 41.0 - 74.0 % 04/03/2024 8:[address] [facility] Lymphocyte % 26.1 17.0 - 47.0 % 04/03/2024 8:[address] [facility] Monocyte % 6.6 3.0 - 11.0 % 04/03/2024 8:[address] [facility] Eosinophil % 1.3 0.0 - 7.0 % 04/03/2024 8:[address] [facility] Basophil % 1.2 0.0 - 1.6 % 04/03/2024 8:[address] [facility] Immature Granulocytes % 0.3 0.0 - 1.0 % 04/03/2024 8:[address] [facility] Neutrophil Absolute 4.82 1.60 - 7.50 x10E9/L 04/03/2024 8:[address] [facility] Lymphocyte Absolute 1.95 1.00 - 4.40 x10E9/L 04/03/2024 8:02 AM [employer] SUPERVISOR [facility] Monocyte Absolute 0.49 0.15 - 1.00 x10E9/L 04/03/2024 8:02 AM [employer]ARM SUPERVISOR [facility] Eosinophil Absolute 0.10 0.00 - 0.60 x10E9/L 04/03/2024 8:02 AM [employer]Y [employer]ARM SUPERVISOR [facility] Basophil Absolute 0.09 0.00 - 0.13 x10E9/L 04/03/2024 8:02 AM [employer]ARM SUPERVISOR [facility] Blood BLOOD SPECIMEN / Unknown Lab Venipuncture / Unknown 04/03/2024 7:19 AM [employer]ARM SUPERVISOR 04/03/2024 7:31 AM [employer] SUPERVISOR Emanuel Simons MD LAB - HEMATOL OGY ORDERABLES [facility] [address] [place] [address] * REJECTED SPUTUM GRAM STAIN (04/02/2024 11:28 AM RESE[employer]ARM SUPERVISOR) Gram Stain < 25 per low power field Polymorphonuclear cells. Consistent with poor quality specimen. 04/02/2024 3:51 PM RESEARCH DAIRY FARM SUPERVISOR [facility] MICROBIOLOGY Gram Stain Recollect if clinically indicated. 04/02/2024 3:51 PM [facility] MICROBIOLOGY Microbiology SPUTUM / Unknown Collection / Unknown 04/02/2024 11:28 AM [employer]EARCH [employer] FARM SUPERVISOR 04/02/2024 11:34 AM [employer]EARCH [employer]ARM SUPERVISOR Wei Greco MD LAB - MICROBIOLOGY O RDERABLES [facility] MICROBIOLOGY [address] [place] [address], [facility] [phone] * PROCALCITONIN LEVEL (04/02/2024 5:54 AM RESEARCH [employer]ARM SUPERVISOR) Only the most recent of2 resultswithin the time period is included. Procalcitonin 0.07 <0.10 ng/mL 04/02/2024 6:56 AM [employer]ARM SUPERVISOR [facility] Blood BLOOD SPECIMEN / Unknown Lab Venipuncture / Unknown 04/02/2024 5:54 AM RESEARCH DAIRY FARM SUPERVISOR 04/02/2024 6:17 AM [employer]EARCH DAIRY [employer]ARM SUPERVISOR Narrative [facility] - 04/02/2024 6:56 AM [employer]EARCH [employer]IRY [employer]ARM SUPERVISOR The change in procalcitonin (PCT) concentration over [...] Change in Procalcitonin Calculator is available at [email or web address] If clinical picture has not improved and PCT remains high, reevaluate and consider treatment failure or other causes. Rodríguez Benz MD [facility] Organization Address City/State/ZIP Co de Phone Number [facility] [address] [place] [address] * XR Chest 1Vw Portable (04/02/2024 5:40 AM RESE[employer]ARM SUPERVISOR) Only the most recent of2 resultswithin the time period is included. Anatomical Region Laterality Modality Chest Radiographic Pattie ging 04/02/2024 7:58 AM [employer] FARM SUPERVISOR Impressions 04/02/2024 8:08 AM [employer]EARCH [employer]ARM SUPERVISOR IMPRESSION: Decreased bilateral airspace disease. Edited by Phoebe Rico on 04/02/2024 8:03 AM > Interpreting Provider: Rod Palma MD on 04/02/2024 8:08 AM Narrative 04/02/2024 8:08 AM [employer] SUPERVISOR XR CHEST 1VW PORTABLE INDICATION: J96.01: Acute [...] A/B RSV PCR RAPID (04/01/2024 1:24 PM RESEARCH DAIRY FARM SUPERVISOR) COVID-19 PCR Not detected Not detected 04/01/19 2:24 PM RESEARCH DAIRY FARM SUPERVISOR [facility] Influenza A PCR Not detected Not detected 04/01/2024 2:24 PM [employer]EARCH DAIRY [employer]ARM SUPERVISOR [facility] Influenza B PCR Not detected Not detected 04/01/2024 2:24 PM [employer]EARCH DAIRY FARM SUPERVISOR [facility] RSV PCR Not detected Not detected 04/01/2024 2:24 PM [employer]EARCH DAIRY FARM SUPERVISOR [facility] Microbiology SPECIMEN FROM NASOPHARYNGEAL STRUCTURE / Unknown Collection / Unknown 04/01/2024 1:24 PM [employer]EARCH [employer]IRY FARM SUPERVISOR 04/01/2024 1:39 PM [employer]EARCH DAIRY FARM SUPERVISOR Narrative [facility] - 04/01/2024 2:24 PM [employer]EARCH [employer]Y FARM SUPERVISOR This nucleic acid amplification assay has been [...] [facility] [address] [address] * ECHO COMPLETE W CONTRAST (04/01/2024 11:34 AM RESEARCH DAIRY FARM SUPERVISOR) AV pk grad 8.2 mmHg SSM CV [...] Laterality Modality Ultrasound 04/01/2024 11:0 0 AM [employer]EARCH [employer]IRY FARM SUPERVISOR Narrative 04/01/2024 5:26 PM RESEARCH DAIRY FARM SUPERVISOR Summary * Normal left ventricular size, global/ [...] Site: [facility] Primary Location: [facility] EStudy Info Technical Quality: Technically Difficult Exam [...] Provider: Tejas Graves Attending Physician: Tejas Graves Escort Blind: Gaby Morales Left Ventricle Normal left ventricular [...] Site: [facility] Primary Location: [facility] EStudy Info Technical Quality: Technically Difficult Exam [...] Provider: Tejas Graves Attending Physician: Tejas Graves Escort Blind: Gaby Morales Left Ventricle Normal left ventricular [...] CCL LEFT HEART CATH (04/01/2024 9:32 AM RESEARCH DAIRY FARM SUPERVISOR) Anatomical Region Laterality Modality X-Ray Angiograph y Narrative 04/01/2024 9:46 AM RESEARCH DAIRY FARM SUPERVISOR Procedures Moderate sedation Left heart cardiac catheterization, selective coronary angiogram and left ventriculogram Indication-NSTEMI LABEL DESIGNER-Chris Conte MD After informed consent was obtained the patient was transferred to the cardiac catheterization laboratory where bilateral groin areas were draped and prepped in sterile fashion. 1% lidocaine was utilized to achieve local anesthesia in the right femoral area. Utilizing Doppler guided ultrasound we accessed the right femoral artery and placed a 6 Belgian sheath without any problems. A 5 Belgian FL4 diagnostic catheter was utilized to cannulate the left main coronary artery and several angiographic views were obtained in different orthogonal planes of the left main LAD and left circumflex arteries. The catheter was exchanged over the wire for a 5 Belgian FR4 and that catheter was utilized to [...] arteriotomy site was closed utilizing a 6 Belgian Angio-Seal device with good hemostasis and no complications Estimated blood loss 30 cc Complications none Sedation Versed 2 mg IV and fentanyl 50 mcg IV Procedure Details Estimated Blood Loss: 30 mL Chris Conte MD CV CARDIAC CATH CUPI D PROCS * HEMOGLOBIN A1C (04/01/2024 7:06 AM RESEARCH DAIRY FARM SUPERVISOR) [facility] Signature Hemoglobin A1c 5.4 <5.7 % 04/01/2024 9:20 AM RESEARCH DAIRY FARM SUPERVISOR [facility] Estimated Average Glucose 108 mg/dL 04/01/2024 9:[address] [facility] Blood BLOOD SPECIMEN / Unknown Lab Venipuncture / Unknown 04/01/2024 7:06 AM RESEARCH DAIRY FARM SUPERVISOR 04/01/2024 7:17 AM RESEARCH DAIRY FARM SUPERVISOR Narrative [facility] - 04/01/2024 9:20 AM RESEARCH DAIRY FARM SUPERVISOR HbA1c Interpretation: Normal: < 5.7% Pre-diabetes: 5.7-6.4% [...] Graves MD LAB - CHEMISTRY RO[facility]NA KEE [facility] Organization Address City/State/ZIP Co de Phone Number [facility] [address] [place] [address] * (ABNORMAL) PTT (04/01/2024 7:06 AM RESEARCH DAIRY FARM SUPERVISOR) Only the most recent of3 resultswithin the time period is included. PTT 71.8(H) 23.0 - 38.4 sec 04/01/2024 7:[address] [facility] Blood BLOOD SPECIMEN / Unknown Lab Venipuncture / Unknown 04/01/2024 7:06 AM RESEARCH DAIRY FARM SUPERVISOR 04/01/2024 7:17 AM RESEARCH DAIRY FARM SUPERVISOR Narrative [facility] - 04/01/2024 7:35 AM RESEARCH DAIRY FARM SUPERVISOR Heparin Therapeutic Range for PTT: 69.0 - 110.0 seconds. Emanuel Simons MD LAB - COAGULA TION ORDERABLES [facility] [address] [place] [address] * (ABNORMAL) LIPID PROFILE (04/01/2024 6:41 AM RESEARCH DAIRY FARM SUPERVISOR) Cholesterol 195 <200 mg/dL 04/01/2024 10:41 AM [...] Lab Venipuncture / Unknown 04/01/2024 6:41 AM RESEARCH DAIRY FARM SUPERVISOR 04/01/2024 6:46 AM RESEARCH DAIRY FARM SUPERVISOR Tejas Graves MD LAB - CHEMISTRY ROSEANNA KEE Performing Organization Address City/[facility] [address]/ZIP Co de Phone Number [facility] [address] [place] [address] * (ABNORMAL) TROPONIN-I HIGH SENSITIVE (03/31/2024 3:11 PM RESEARCH DAIRY FARM SUPERVISOR) Only the most recent of2 resultswithin the time period is included. Troponin I High Sensitive 5,189(HH) <=14 ng/L 03/31/2024 4:[address] [facility] Blood BLOOD SPECIMEN / Unknown Lab Venipuncture / Unknown 03/31/2024 3:11 PM RESEARCH DAIRY FARM SUPERVISOR 03/31/2024 3:19 PM RESEARCH DAIRY FARM SUPERVISOR Tejas Graves MD LAB - CHEMISTRY ORDPaul TARYNRORY Liang Organization Address City/State/ZIP Co de Phone Number [facility] [address] [id number] * CT Angio Chest Pulm Embolism (03/31/2024 2:32 PM [employer]) Anatomical Region Laterality Modality Chest Computed Tomogra phy 03/31/2024 2:41 PM [employer] Impressions 03/31/2024 2:43 PM [employer] IMPRESSION: 1. No pulmonary embolism. 2. Findings most consistent with congestive heart failure with interstitial and alveolar pulmonary edema and small pleural effusion. Differential includes infection. > Interpreting Provider: Daniele Pino MD on 03/31/2024 2:43 PM Narrative 03/31/2024 2:43 PM [employer] PROCEDURE: CT ANGIO CHEST PULM EMBOLISM DATE/TIME [...] (ABNORMAL) LACTIC ACID BLOOD (03/31/2024 1:36 PM [employer]) Only the most recent of2 resultswithin the time period is included. Lactic Acid 2.9(H) <=2 mmol/L 03/31/2024 2:07 PM [employer] [facility] Blood BLOOD SPECIMEN / Unknown Lab Venipuncture / Unknown 03/31/2024 1:36 PM [employer] 03/31/2024 1:52 PM [employer] Tejas Graves MD LAB - CHEMISTRY ROSEANNA KEE [facility] Organization Address City/State/ZIP Co de Phone Number [facility] [address] [id number] * CULTURE BLOOD (03/31/2024 10:28 AM RESEARCH DAIRY FARM SUPERVISOR) Only the most recent of2 resultswithin the time period is included. Pathologist [facility] Culture No growth day 5 ADE 04/05/2024 2:01 PM RESEARCH DAIRY FARM SUPERVISOR [facility] MICROBIOLOGY Blood PERIPHERAL BLOOD / Unknown Lab Venipuncture / Unknown 03/31/2024 10:28 AM RESEARCH DAIRY FARM SUPERVISOR 03/31/2024 10:32 AM RESEARCH DAIRY FARM SUPERVISOR Tejas Graves MD LAB - MICROBIOLOGY O RDERABLES [facility] MICROBIOLOG[facility] [address] [place] [address] [phone] * ERYTHROCYTE SEDIMENTATION RATE (03/31/2024 10:16 AM RESEARCH DAIRY FARM SUPERVISOR) Pathologist [facility] Erythrocyte Sedimentation Rate Automated 14 0 - 30 MM/HR 03/31/2024 10:36 AM RESEARCH DAIRY FARM SUPERVISOR [facility] Blood BLOOD SPECIMEN / Unknown Lab Venipuncture / Unknown 03/31/2024 10:16 AM RESEARCH DAIRY FARM SUPERVISOR 03/31/2024 10:32 AM RESEARCH DAIRY FARM SUPERVISOR Tejas Graves MD LAB - HEMATOLOGY ORD ERABLES [facility] [address] [place] [address] * (ABNORMAL) B-TYPE NATRIURETIC PEPTIDE (03/31/2024 10:16 AM RESEARCH DAIRY FARM SUPERVISOR) Pathologist [facility] BNP 516(H) <=100 pg/mL 03/31/2024 10:55 AM RESEARCH DAIRY FARM SUPERVISOR [facility] Blood BLOOD SPECIMEN / Unknown Lab Venipuncture / Unknown 03/31/2024 10:16 AM RESEARCH DAIRY FARM SUPERVISOR 03/31/2024 10:32 AM RESEARCH DAIRY FARM SUPERVISOR Narrative [facility] - 03/31/2024 10:55 AM RESEARCH DAIRY FARM 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 A cutoff of 100 pg/mL has been [...] Graves MD LAB - CHEMISTRY ROSEANNA KEE [facility] Organization Address City/State/ZIP Co de Phone Number [facility] [address] [place] [address] * BLOOD GASES ARTERIAL (03/31/2024 9:29 AM RESEARCH DAIRY FARM SUPERVISOR) pH Arterial 7.44 7.35 - 7.45 pH 03/31/2024 9:33 AM RESEARCH DAIRY FARM SUPERVISOR [facility]P [facility]ERAP[facility] pO2 Arterial 84 80 - 100 mmHg 03/31/2024 9:33 AM RESEARCH DAIRY FARM SUPERVISOR [facility] pCO2 Arterial 36 35 - 45 mmHg 03/31/2024 9:33 AM RESEARCH DAIRY FARM SUPERVISOR [facility]AP[facility] HCO3 Arterial 24.5 22.0 - 26.0 mmol/L 03/31/2024 9:33 AM RESEARCH DAIRY FARM SUPERVISOR [facility]P [facility]ERAP[facility] BE Arterial 0.6 -2.0 - 2.0 mmol/L 03/31/2024 9:33 AM RESEARCH DAIRY FARM SUPERVISOR [facility]P [facility]ERAP[facility] O2 Saturation Arterial 99 90 - 100 % 03/31/2024 9:33 AM RESEARCH DAIRY FARM SUPERVISOR [facility] Temperature (C) 37.0 C 9:33 AM RESEARCH DAIRY FARM SUPERVISOR [facility] RESP THERAPY Galen's Test Positive 03/31/2024 9:33 AM RESEARCH DAIRY FARM SUPERVISOR [facility] Mode Bipap 03/31/2024 9:33 AM RESEARCH DAIRY FARM SUPERVISOR [facility] FI O2 40.0 % 03/31/2024 9:33 AM RESEARCH DAIRY FARM SUPERVISOR [facility]AP[facility] BIPAP Insp Pressure (cmH2O) 10 03/31/2024 9:33 AM RESEARCH DAIRY FARM SUPERVISOR [facility] BIPAP Exp Pressure (cmH2O) 5 03/31/2024 9:33 AM RESEARCH DAIRY FARM SUPERVISOR [facility] P/F Ratio 210 03/31/2024 9:33 AM RESEARCH DAIRY FARM SUPERVISOR [facility] Blood ARTERIAL BLOOD SPECIMEN / Unknown 03/31/2024 9:29 AM RESEARCH DAIRY FARM SUPERVISOR 03/31/2024 9:29 AM RESEARCH DAIRY FARM SUPERVISOR Tejas Graves MD LAB - BLOOD GASES OR DERABLES Performing Organization Address [facility] [address]/ZIP Co de Phone Number [facility]AP[facility] [address] [address], [facility] * TSH REFLEX FREE T4 (03/31/2024 9:25 AM RESEARCH DAIRY FARM SUPERVISOR) TSH 1.568 0.350 - 4.940 uIU/mL 03/31/2024 10:20 AM RESEARCH DAIRY FARM SUPERVISOR [facility] Blood BLOOD SPECIMEN / Unknown Lab Venipuncture / Unknown 03/31/2024 9:25 AM RESEARCH DAIRY FARM SUPERVISOR 03/31/2024 9:30 AM RESEARCH DAIRY FARM SUPERVISOR Tejas Graves MD LAB - CHEMISTRY ORDE CHILANGO Performing Organization Address [facility] [address]/[facility] Co de Phone Number [facility] [address] [address] * (ABNORMAL) C-REACTIVE PROTEIN (03/31/2024 9:25 AM RESEARCH DAIRY FARM SUPERVISOR) C-Reactive Protein 1.35(H) <=0.50 mg/dL 03/31/2024 9:58 AM RESEARCH DAIRY FARM SUPERVISOR [facility] Blood BLOOD SPECIMEN / Unknown Lab Venipuncture / Unknown 03/31/2024 9:25 AM RESEARCH DAIRY FARM SUPERVISOR 03/31/2024 9:30 AM RESEARCH DAIRY FARM SUPERVISOR Tejas Graves MD LAB - CHEMISTRY ROSEANNA KEE Performing Organization Address [facility] [address]/ZIP Co de Phone Number [facility] [address] [address] * (ABNORMAL) COMPREHENSIVE METABOLIC PANEL (03/31/2024 9:25 AM RESEARCH DAIRY FARM SUPERVISOR) Glucose 170(H) 70 - 99 mg/dL 03/31/2024 9:47 AM RESEARCH DAIRY FARM SUPERVISOR [facility] Sodium 142 136 - 145 mmol/L 03/31/2024 9:[address] [facility] Potassium 4.0 3.5 - 5.1 mmol/L 03/31/2024 9:[address] [facility] Chloride 109(H) 98 - 107 mmol/L 03/31/2024 9:[address] [facility] CO2 21(L) 22 - 29 mmol/L 03/31/2024 9:[address] [facility] Calcium 9.2 8.4 - 10.4 mg/dL 03/31/2024 9:[address] [facility] Anion Gap 12 6 - 16 mmol/L 03/31/2024 9:[address] [facility] BUN 20 7 - 26 mg/dL 03/31/2024 9:[address] [facility] Creatinine 0.80 0.57 - 1.11 mg/dL 03/31/2024 9:[address] [facility] Alkaline Phosphatase 120 40 - 150 U/L 03/31/2024 9:[address] [facility] ALT 21 0 - 55 U/L 03/31/2024 9:[address] [facility] AST 33 5 - 34 U/L 03/31/2024 9:[address] [facility] Protein Total 7.0 6.4 - 8.3 gm/dL 03/31/2024 9:[address] [facility] Albumin 3.6 3.4 - 5.0 gm/dL 03/31/2024 9:[address] [facility] Bilirubin Total 0.4 0.2 - 1.2 mg/dL 03/31/2024 9:[address] [facility] eGFR by CKD-EPI 83(L) >=90 mL/min/1.7 3 m2 03/31/2024 9:[address] [facility] Blood BLOOD SPECIMEN / Unknown Lab Venipuncture / Unknown 03/31/2024 9:25 AM RESEARCH DAIRY FARM SUPERVISOR 03/31/2024 9:30 AM RESEARCH DAIRY FARM SUPERVISOR Tejas Graves MD LAB - CHEMISTRY ROSEANNA KEE [facility] [address] [id number] from Last 3 Months Advance Directives * Full Code (Latest Code Status on File) Date Activated Date Inactivated Comments 04/01/2024 9:41 AM 04/03/2024 12:47 PM * Full Code Date Activated Date Inactivated Comments 03/31/2024 9:24 AM 04/01/2024 9:41 AM Care Teams [employer] Relationship Specialty Start Date End Date Sara Irene, BOARDING MACHINE OPERATOR-INSOLE TAPE STITCHER [employer] [address] [place] [address] PCP - General Nurse Practitioner Family 08/29/22
--- NOTE | 2024-04-15 09:21 | PC.NURSE ---
discharge call back completed, feeling much better, no questions regarding dc instrutions
== END 2024-04-14 12:00 | disposition home or self-care (01) ==
LOC: CHSED 07:30 → CHS2ND 17:25
PROVIDERS: Emergency Medicine; Nurse Practitioner Acute Care; Admitting Provider Internal Medicine; Emergency Provider Emergency Medicine; PCP Nurse Practitioner Family; Visit Provider Internal Medicine
DX: R11.2 Nausea with vomiting, unspecified (principal); R19.7 Diarrhea, unspecified; E86.0 Dehydration; E87.8 Other disorders of electrolyte and fluid balance, not elsewhere classified; E87.6 Hypokalemia; R82.5 Elevated urine levels of drugs, medicaments and biological substances; E78.00 Pure hypercholesterolemia, unspecified; I25.2 Old myocardial infarction; I11.0 Hypertensive heart disease with heart failure; I50.9 Heart failure, unspecified; J44.9 Chronic obstructive pulmonary disease, unspecified; G25.81 Restless legs syndrome; M54.2 Cervicalgia; M54.50 Low back pain, unspecified; F31.9 Bipolar disorder, unspecified; Z20.822 Contact with and (suspected) exposure to COVID-19; Z87.891 Personal history of nicotine dependence; Z85.51 Personal history of malignant neoplasm of bladder; Z90.710 Acquired absence of both cervix and uterus; Z79.51 Long term (current) use of inhaled steroids; Z79.82 Long term (current) use of aspirin; Z79.899 Other long term (current) drug therapy
CPT/HCPCS: 36415; 74177; 80053; 80307; 81003; 82948; 83036; 83690; 83735; 84484; 85025; 87637; 96361; 96365; 96366; 96374; 96375; 96376; 99285; A9270; G0378; J0360; J0780; J2060; J2405; J2470; J2765; J3480; J7030; J7040; Q9967

== ENCOUNTER 2024-04-29 10:14 | Outpatient (CLI) | payer MEDICARE, SELFPAY ==
--- NOTE | ~2024-04-29 | XR_ITS ---
XR abdomen/kub 1V Ordering provider: Roberto Sellers MD History: . Hx of kidney stones, RT flank pain X 2 months . Comparison: None. FINDINGS: BOWEL: Fecal material is loaded in the colon. Nonobstructive bowel gas pattern. ORGANOMEGALY: None. SIGNIFICANT PATHOLOGIC CALCIFICATIONS: None. Calcification projected over the right iliac bone most likely in the bowel. OTHER: No free air is seen under the diaphragm. IMPRESSION: NO ACUTE ABDOMINAL FINDINGS. No definite kidney stones. If still suspicious noncontrast CT is advised. Constipation. Reviewed, dictated and finalized at location A.
--- OUTSIDE RECORDS SUMMARY | 2024-04-29 11:53 | XMS_ITS | Clinical Summary ---
Author Organization [facility] Address [address] [place] [address] Care Team Providers Care Product Development Manager Name Role Phone Sara Irene APRN-CORPORATE WELLNESS COORDINATOR Primary Care Provid er Source Comments [facility],non-owned Affiliates and Associated Physician Practices is amultiple site organization consisting of ambulatory clinics and hospital sitesin [place], [place], [place] and [place]. This disclosure is being madepursuant to the Care Everywhere program and may not contain all information available regarding this patient. Last updated 17.[facility] Allergies Active Allergy Reactions Criticality Noted Date [...] fluticasone propionate (Flonase) 50 MCG/ACT nasal spray [place] 1 (one) spray into each nostril once [...] Department Care Team Description 04/01/2024 8:30 AM COMMUNITY HEALTH CONSULTANT - 04/01/2024 10:00 AM [facility] Surgery [facility] - Cardiac Insurance Healthcare Consultant [address] [address] Chris Conte MD Left Heart Cath 03/31/2024 9:06 AM COMMUNITY HEALTH CONSULTANT - 04/03/2024 11:42 AM [facility] Hospital Encounter [facility] 5N MEDICAL [address] [address] Juliana Siddiqui MD Sood, MD Nichole Lazaro [...] and heating? Not hard at all 04/01/2024 [facility] - Occupational Stress [...] any time in the past 12 [address] [facility], were you homeless or living in a penitentiary (including now)? No 03/31/2024 Sex and Gender Information Value Date Recorded Sex Assigned at Not on file Gender Identity Not on file Sexual Orientation Not on file Last Filed Vital Signs Vital Sign Reading Time Taken Comments Blood Pressure 142/99 04/03/2024 7:59 AM COMMUNITY HEALTH CONSULTANT Pulse 89 04/03/2024 9:18 AM COMMUNITY HEALTH CONSULTANT Temperature 36.6 C (97.9 F) 04/03/2024 7:59 AM COMMUNITY HEALTH CONSULTANT Respiratory Rate 18 04/03/2024 9:18 AM COMMUNITY HEALTH CONSULTANT Oxygen Saturation 99% 04/03/2024 9:18 AM COMMUNITY HEALTH CONSULTANT Inhaled Oxygen Concentration 40% 03/31/2024 4 :59 PM COMMUNITY HEALTH CONSULTANT Weight 73.5 kg (162 lb) 04/02/2024 4:11 AM COMMUNITY HEALTH CONSULTANT Height 157.5 cm (5' 2 ) 03/31/2024 10:03 AM COMMUNITY HEALTH CONSULTANT Body Mass Index 29.63 03/31/2024 10:03 AM COMMUNITY HEALTH CONSULTANT Plan of Treatment Upcoming Encounters Date Type Department Care Team (Late st Contact Info) Description 06/14/2024 9:00 AM CDT Office Visit [facility] - ENT [address], [place] [address] Kahs Garcia MD [address] [facility] [address] [place] [address] Health Maintenance Due Date Last [...] complete this topic MENINGOCOCCAL (Group B) VACCINE SHARED DECISION-MAKING Aged Out No longer eligible based on patient's age to complete this topic MENINGOCOCCAL GROUPS A/C/Y/W VACCINE Aged Out No longer eligible based on patient's age to complete this topic Procedures Procedure Name Priority Date/Time Associated Diagnosis Comments CARDIAC RHYTHM STRIP ORDER 04/05/2024 1:14 AM COMMUNITY HEALTH CONSULTANT GLUCOSE - POINT OF CARE Routine 04/03/2024 7:59 AM COMMUNITY HEALTH CONSULTANT PHOSPHORUS BLOOD STAT 04/03/2024 7:31 AM COMMUNITY HEALTH CONSULTANT MAGNESIUM BLOOD STAT 04/03/2024 7:31 AM COMMUNITY HEALTH CONSULTANT BASIC METABOLIC PANEL (CALCIUM TOTAL) STAT 04/03/2024 7:31 AM COMMUNITY HEALTH CONSULTANT PT-INR Routine 04/03/2024 7:19 AM COMMUNITY HEALTH CONSULTANT CBC W AUTO DIFFERENTIAL Routine 04/03/2024 7:19 AM COMMUNITY HEALTH CONSULTANT GLUCOSE - POINT OF CARE Routine 04/02/2024 4:54 PM COMMUNITY HEALTH CONSULTANT GLUCOSE - POINT OF CARE Routine 04/02/2024 4:41 PM COMMUNITY HEALTH CONSULTANT GLUCOSE - POINT OF CARE Routine 04/02/2024 11:28 AM COMMUNITY HEALTH CONSULTANT REJECTED SPUTUM GRAM STAIN Routine 04/02/2024 11:28 AM COMMUNITY HEALTH CONSULTANT GLUCOSE - POINT OF CARE Routine 04/02/2024 6:19 AM COMMUNITY HEALTH CONSULTANT PROCALCITONIN LEVEL AM Draw 04/02/2024 5 :54 AM COMMUNITY HEALTH CONSULTANT BASIC METABOLIC PANEL (CALCIUM TOTAL) AM Draw 04/02/2024 5:54 AM COMMUNITY HEALTH CONSULTANT PHOSPHORUS BLOOD AM Draw 04/02/2024 5:54 AM COMMUNITY HEALTH CONSULTANT MAGNESIUM BLOOD Routine 04/02/2024 5:54 AM COMMUNITY HEALTH CONSULTANT PT-INR Routine 04/02/2024 5:54 AM COMMUNITY HEALTH CONSULTANT CBC W AUTO DIFFERENTIAL Routine 04/02/2024 5:54 AM COMMUNITY HEALTH CONSULTANT XR CHEST 1VW PORTABLE Routine 04/02/2024 5:40 AM COMMUNITY HEALTH CONSULTANT Acute respiratory failure with hypoxia GLUCOSE - POINT OF CARE Routine 04/01/2024 8:12 PM COMMUNITY HEALTH CONSULTANT GLUCOSE - POINT OF CARE Routine 04/01/2024 4:35 PM COMMUNITY HEALTH CONSULTANT SARS-COV-2 (COVID-19) FLU A/B RSV PCR RAPID STAT 04/01/2024 1:24 PM COMMUNITY HEALTH CONSULTANT GLUCOSE - POINT OF CARE Routine 04/01/2024 11:54 AM COMMUNITY HEALTH CONSULTANT ECHO COMPLETE W CONTRAST Routine 04/01/2024 11:34 AM COMMUNITY HEALTH CONSULTANT Sepsis with acute hypoxic respiratory failure, due to unspecified organism, unspecified whether septic shock present CCL LEFT HEART CATH Routine 04/01/2024 9 :32 AM COMMUNITY HEALTH CONSULTANT PTT Timed 04/01/2024 7:06 AM COMMUNITY HEALTH CONSULTANT PT-INR Routine 04/01/2024 7:06 AM COMMUNITY HEALTH CONSULTANT HEMOGLOBIN A1C Routine 04/01/2024 7:06 AM COMMUNITY HEALTH CONSULTANT CBC W AUTO DIFFERENTIAL AM Draw 04/01/2024 7:06 AM COMMUNITY HEALTH CONSULTANT GLUCOSE - POINT OF CARE Routine 04/01/2024 6:41 AM COMMUNITY HEALTH CONSULTANT LIPID PROFILE AM Draw 04/01/2024 6:41 AM COMMUNITY HEALTH CONSULTANT BASIC METABOLIC PANEL (CALCIUM TOTAL) AM Draw 04/01/2024 6:41 AM COMMUNITY HEALTH CONSULTANT PTT Timed 03/31/2024 11:32 PM COMMUNITY HEALTH CONSULTANT GLUCOSE - POINT OF CARE Routine 03/31/2024 4:50 PM COMMUNITY HEALTH CONSULTANT PTT Routine 03/31/2024 4:39 PM COMMUNITY HEALTH CONSULTANT PT-INR Routine 03/31/2024 4:39 PM COMMUNITY HEALTH CONSULTANT TROPONIN-I HIGH SENSITIVE Routine 03/31/2024 3:[address] ANGIO CHEST PULM EMBOLISM Routine 03/31/2024 2:32 PM COMMUNITY HEALTH CONSULTANT Sepsis with acute hypoxic respiratory failure, due to unspecified organism, unspecified whether septic shock present LACTIC ACID BLOOD STAT 03/31/2024 1:3 6 PM COMMUNITY HEALTH CONSULTANT TROPONIN-I HIGH SENSITIVE STAT 03/31/2024 12:46 PM COMMUNITY HEALTH CONSULTANT GLUCOSE - POINT OF CARE Routine 03/31/2024 12:09 PM COMMUNITY HEALTH CONSULTANT CULTURE BLOOD STAT 03/31/2024 10:28 AM COMMUNITY HEALTH CONSULTANT ERYTHROCYTE SEDIMENTATION RATE Routine 03/31/2024 10:16 AM COMMUNITY HEALTH CONSULTANT PROCALCITONIN LEVEL STAT 03/31/2024 1 0:16 AM COMMUNITY HEALTH CONSULTANT B-TYPE NATRIURETIC PEPTIDE STAT 03/31/2024 10:16 AM COMMUNITY HEALTH CONSULTANT CULTURE BLOOD STAT 03/31/2024 10:16 AM COMMUNITY HEALTH CONSULTANT XR CHEST 1VW PORTABLE Routine 03/31/2024 9:52 AM COMMUNITY HEALTH CONSULTANT Sepsis with acute hypoxic respiratory failure, due to unspecified organism, unspecified whether septic shock present BLOOD GASES ARTERIAL RT Routine 03/31/2024 9:29 AM COMMUNITY HEALTH CONSULTANT C-REACTIVE PROTEIN Routine 03/31/2024 9: 25 AM COMMUNITY HEALTH CONSULTANT TSH REFLEX FREE T4 Routine 03/31/2024 9: 25 AM COMMUNITY HEALTH CONSULTANT LACTIC ACID BLOOD STAT 03/31/2024 9:2 5 AM COMMUNITY HEALTH CONSULTANT COMPREHENSIVE METABOLIC PANEL STAT 03/31/2024 9:25 AM COMMUNITY HEALTH CONSULTANT CBC W AUTO DIFFERENTIAL STAT 03/31/2024 9:25 AM COMMUNITY HEALTH CONSULTANT PT EVAL AND TREAT Routine 03/31/2024 9:2 3 AM COMMUNITY HEALTH CONSULTANT OT EVAL AND TREAT Routine 03/31/2024 9:2 3 AM COMMUNITY HEALTH CONSULTANT from Last 3 Months Results * CARDIAC RHYTHM STRIP ORDER (04/05/2024 1:14 AM COMMUNITY HEALTH CONSULTANT) Narrative 04/05/2024 1:14 AM COMMUNITY HEALTH CONSULTANT Ordered by an unspecified provider. Scanned Document CARDIAC SERVICES ORD ERABLES * (ABNORMAL) GLUCOSE - POINT OF CARE (04/03/2024 7:59 AM COMMUNITY HEALTH CONSULTANT) Only the most recent of11 resultswithin the time period is included. Glucose WB/POC 102(H) 70 - 99 mg/dL 04/03/2024 8:10 AM COMMUNITY HEALTH CONSULTANT [facility] Specimen Type Cap Fingerstick 2024 8:10 AM COMMUNITY HEALTH CONSULTANT [facility] Blood BLOOD SPECIMEN / Unknown 04/03/2024 7:59 AM COMMUNITY HEALTH CONSULTANT 04/03/2024 8:10 AM COMMUNITY HEALTH CONSULTANT Elodia Varela MD LAB - POINT OF CARE ORDERABLES [facility] [address] * (ABNORMAL) BASIC METABOLIC PANEL (CALCIUM TOTAL) (04/03/2024 7:31 AM COMMUNITY HEALTH CONSULTANT) Only the most recent of3 resultswithin the time period is included. Glucose 113(H) 70 - 99 mg/dL 04/03/2024 8:05 AM COMMUNITY HEALTH CONSULTANT [facility] Sodium 139 136 - 145 mmol/L 04/03/2024 8:05 AM [facility] Potassium 4.3 3.5 - 5.1 mmol/L 04/03/2024 8:05 AM [facility] Chloride 107 98 - 107 mmol/L 04/03/2024 8:05 AM [facility] CO2 20(L) 22 - 29 mmol/L 04/03/2024 8:05 AM [facility] Calcium 9.9 8.4 - 10.4 mg/dL 04/03/2024 8:05 AM [facility] Anion Gap 12 6 - 16 mmol/L 04/03/2024 8:05 AM [facility] BUN 28(H) 7 - 26 mg/dL 04/03/2024 8:05 AM [facility] Creatinine 0.80 0.57 - 1.11 mg/dL 04/03/2024 8:05 AM [facility] eGFR by CKD-EPI 83(L) >=90 mL/min/1.7 3 m2 04/03/2024 8:05 AM [facility] Blood BLOOD SPECIMEN / Unknown Lab Venipuncture / Unknown 04/03/2024 7:31 AM COMMUNITY HEALTH CONSULTANT 04/03/2024 7:37 AM [facility] Mariah Chavez PA-C LAB - CHEMISTRY ORDERABLES [facility] [address] [place] [address] * PHOSPHORUS BLOOD (04/03/2024 7:31 AM [facility]) Only the most recent of2 resultswithin the time period is included. Phosphorus 3.2 2.5 - 4.5 mg/dL 04/03/2024 8:05 AM [facility] Blood BLOOD SPECIMEN / Unknown Lab Venipuncture / Unknown 04/03/2024 7:31 AM COMMUNITY HEALTH CONSULTANT 04/03/2024 7:37 AM [facility] Mariah Chavez PA-C LAB - CHEMISTRY ORDERABLES [facility] [place] [id number] * MAGNESIUM BLOOD (04/03/2024 7:31 AM COMMUNITY HEALTH CONSULTANT) Only the most recent of2 resultswithin the time period is included. Pathologist [facility] Magnesium 2.1 1.6 - 2.6 mg/dL 04/03/2024 8:05 AM COMMUNITY HEALTH CONSULTANT [facility] Blood BLOOD SPECIMEN / Unknown Lab Venipuncture / Unknown 04/03/2024 7:31 AM COMMUNITY HEALTH CONSULTANT 04/03/2024 7:37 AM COMMUNITY HEALTH CONSULTANT Mariah Chavez PA-C LAB - CHEMISTRY ORDERABLES Performing Organization Address City/[facility] Co de Phone Number [facility] [place] [id number] * PT-INR (04/03/2024 7:19 AM COMMUNITY HEALTH CONSULTANT) Only the most recent of4 resultswithin the time period is included. Pathologist [facility] PT 13.6 12.1 - 14.8 sec 04/03/2024 7:48 AM COMMUNITY HEALTH CONSULTANT [facility] INR 1.0 0.9 - 1.1 04/03/2024 7:48 AM COMMUNITY HEALTH CONSULTANT [facility] Blood BLOOD SPECIMEN / Unknown Lab Venipuncture / Unknown 04/03/2024 7:19 AM COMMUNITY HEALTH CONSULTANT 04/03/2024 7:31 AM COMMUNITY HEALTH CONSULTANT Narrative [facility] - 04/03/2024 7:48 AM COMMUNITY HEALTH CONSULTANT Conventional Warfarin Anticoagulant Therapy: INR Reference Range: 2.0-3.0 Intensive Warfarin Anticoagulant Therapy: INR Reference Range: 2.5-3.5 Emanuel Simons MD LAB - COAGULA TION ORDERABLES [facility] [place] [id number] * CBC W AUTO DIFFERENTIAL (04/03/2024 7:19 AM COMMUNITY HEALTH CONSULTANT) Only the most recent of4 resultswithin the time period is included. Pathologist [facility] WBC 7.5 4.0 - 10.7 x10E9/L 04/03/2024 8:02 AM [facility] RBC Count 4.92 3.90 - 5.20 x10E12/L 04/03/2024 8:02 AM [facility] Hemoglobin 14.7 11.9 - 15.8 g/dL 04/03/2024 8:02 AM [facility] Hematocrit 42.5 34.8 - 46.1 % 04/03/2024 8:02 AM [facility] MCV 86.4 80.0 - 98.0 fL 04/03/2024 8:02 AM [facility] MCH 29.9 26.7 - 33.6 pg 04/03/2024 8:02 AM [facility] MCHC 34.6 31.7 - 36.3 g/dL 04/03/2024 8:02 AM [facility] RDW-CV 13.7 11.3 - 14.8 % 04/03/2024 8:02 AM [facility] Platelet Count 209 150 - 420 x10E9/L 04/03/2024 8:02 AM [facility] MPV 11.2 7.8 - 11.4 fL 04/03/2024 8:02 AM [facility] Neutrophil % 64.5 41.0 - 74.0 % 04/03/2024 8:02 AM [facility] Lymphocyte % 26.1 17.0 - 47.0 % 04/03/2024 8:02 AM [facility] Monocyte % 6.6 3.0 - 11.0 % 04/03/2024 8:02 AM [facility] Eosinophil % 1.3 0.0 - 7.0 % 04/03/2024 8:02 AM [facility] Basophil % 1.2 0.0 - 1.6 % 04/03/2024 8:02 AM [facility] Immature Granulocytes % 0.3 0.0 - 1.0 % 04/03/2024 8:02 AM [facility] Neutrophil Absolute 4.82 1.60 - 7.50 x10E9/L 04/03/2024 8:02 AM [facility] Lymphocyte Absolute 1.95 1.00 - 4.40 x10E9/L 04/03/2024 8:02 AM COMMUNITY HEALTH CONSULTANT [facility] Monocyte Absolute 0.49 0.15 - 1.00 x10E9/L 04/03/2024 8:02 AM COMMUNITY HEALTH CONSULTANT [facility] Eosinophil Absolute 0.10 0.00 - 0.60 x10E9/L 04/03/2024 8:02 AM COMMUNITY HEALTH CONSULTANT [facility] Basophil Absolute 0.09 0.00 - 0.13 x10E9/L 04/03/2024 8:02 AM COMMUNITY HEALTH CONSULTANT [facility] Blood BLOOD SPECIMEN / Unknown Lab Venipuncture / Unknown 04/03/2024 7:19 AM COMMUNITY HEALTH CONSULTANT 04/03/2024 7:31 AM COMMUNITY HEALTH CONSULTANT Emanuel Simons MD LAB - HEMATOL OGY ORDERABLES [facility] [address] [place] [address] * REJECTED SPUTUM GRAM STAIN (04/02/2024 11:28 AM COMMUNITY HEALTH CONSULTANT) Gram Stain < 25 per low power field Polymorphonuclear cells. Consistent with poor quality specimen. 04/02/2024 3:51 PM COMMUNITY HEALTH CONSULTANT [facility] MICROBIOLOGY Gram Stain Recollect if clinically indicated. 04/02/2024 3:51 PM [facility] MICROBIOLOGY Microbiology SPUTUM / Unknown Collection / Unknown 04/02/2024 11:28 AM COMMUNITY HEALTH CONSULTANT 04/02/2024 11:34 AM COMMUNITY HEALTH CONSULTANT Wei Greco MD LAB - MICROBIOLOGY O RDERABLES [facility] MICROBIOLOGY [address] [place] [address] [phone] * PROCALCITONIN LEVEL (04/02/2024 5:54 AM COMMUNITY HEALTH CONSULTANT) Only the most recent of2 resultswithin the time period is included. Procalcitonin 0.07 <0.10 ng/mL 04/02/2024 6:56 AM COMMUNITY HEALTH CONSULTANT [facility] Blood BLOOD SPECIMEN / Unknown Lab Venipuncture / Unknown 04/02/2024 5:54 AM COMMUNITY HEALTH CONSULTANT 04/02/2024 6:17 AM COMMUNITY HEALTH CONSULTANT Narrative [facility] - 04/02/2024 6:56 AM COMMUNITY HEALTH CONSULTANT The change in procalcitonin (PCT) concentration over [...] Change in Procalcitonin Calculator is available at [email or web address] If clinical picture has not improved and PCT remains high, reevaluate and consider treatment failure or other causes. Rodríguez Benz MD LAB - [facility] Address City/State/ZIP Co de Phone Number [facility] [address] [facility] [place] [address] * XR Chest 1Vw Portable (04/02/2024 5:40 AM COMMUNITY HEALTH CONSULTANT) Only the most recent of2 resultswithin the time period is included. Anatomical Region Laterality Modality Chest Radiographic Pattie ging 04/02/2024 7:58 AM COMMUNITY HEALTH CONSULTANT Impressions 04/02/2024 8:08 AM COMMUNITY HEALTH CONSULTANT IMPRESSION: Decreased bilateral airspace disease. Edited by Phoebe Rico on 04/02/2024 8:03 AM > Interpreting Provider: Rod Palma MD on 04/02/2024 8:08 AM Narrative 04/02/2024 8:08 AM COMMUNITY HEALTH CONSULTANT XR CHEST 1VW PORTABLE INDICATION: J96.01: Acute [...] PCR RAPID (04/01/2024 1:24 PM COMMUNITY HEALTH CONSULTANT) COVID-19 PCR Not detected Not detected 04/01/19 2:24 PM COMMUNITY HEALTH CONSULTANT [facility] Influenza A PCR Not detected Not detected 04/01/2024 2:24 PM COMMUNITY HEALTH CONSULTANT [facility] Influenza B PCR Not detected Not detected 04/01/2024 2:24 PM COMMUNITY HEALTH CONSULTANT [facility] RSV PCR Not detected Not detected 04/01/2024 2:24 PM COMMUNITY HEALTH CONSULTANT [facility] Microbiology SPECIMEN FROM NASOPHARYNGEAL STRUCTURE / Unknown Collection / Unknown 04/01/2024 1:24 PM COMMUNITY HEALTH CONSULTANT 04/01/2024 1:39 PM COMMUNITY HEALTH CONSULTANT Narrative [facility] - 04/01/2024 2:24 PM COMMUNITY HEALTH CONSULTANT This nucleic acid amplification assay has been [...] Varela MD LAB - MICROBIOLOGY O RDERABLES [facility] [address] [address] * ECHO COMPLETE W CONTRAST (04/01/2024 11:34 AM COMMUNITY HEALTH CONSULTANT) AV pk grad 8.2 mmHg [facility] CV [...] M CV FUJI PACS MV lat S' aelx 6.762 cm/s [facility] CV FUJI PACS MV [...] Ultrasound 04/01/2024 11:0 0 AM COMMUNITY HEALTH CONSULTANT Narrative 04/01/2024 5:26 PM COMMUNITY HEALTH CONSULTANT Summary * Normal left ventricular size, global/ [...] 11:00 AM Patient Status: I/P Study Site: [facility] Primary Location: [facility] EStudy Info Technical Quality: Technically Difficult Exam [...] Provider: Tejas Graves Attending Physician: Tejas Graves Battery Tester: Gaby Floreswaqas Left Ventricle Normal left ventricular size, global/ [...] 11:00 AM Patient Status: I/P Study Site: [facility] Primary Location: [facility] EStudy Info Technical Quality: Technically Difficult Exam [...] Provider: Tejas Graves Attending Physician: Tejas Graves Battery Tester: Gaby Morales Left Ventricle Normal left ventricular [...] HEART CATH (04/01/2024 9:32 AM COMMUNITY HEALTH CONSULTANT) Anatomical Region Laterality Modality X-Ray Angiograph y Narrative 04/01/2024 9:46 AM COMMUNITY HEALTH CONSULTANT Procedures Moderate sedation Left heart cardiac catheterization, selective coronary angiogram and left ventriculogram Indication-NSTEMI SIX PACK PACKER-Chris Conte MD After informed consent was obtained the patient was transferred to the cardiac catheterization laboratory where bilateral groin areas were draped and prepped in sterile fashion. 1% lidocaine was utilized to achieve local anesthesia in the right femoral area. Utilizing Doppler guided ultrasound we accessed the right femoral artery and placed a 6 Bangladeshi sheath without any problems. A 5 Bangladeshi FL4 diagnostic catheter was utilized to cannulate the left main coronary artery and several angiographic views were obtained in different orthogonal planes of the left main LAD and left circumflex arteries. The catheter was exchanged over the wire for a 5 Bangladeshi FR4 and that catheter was utilized to [...] arteriotomy site was closed utilizing a 6 Bangladeshi Angio-Seal device with good hemostasis and no complications Estimated blood loss 30 cc Complications none Sedation Versed 2 mg IV and fentanyl 50 mcg IV Procedure Details Estimated Blood Loss: 30 mL Chris Conte MD CV CARDIAC CATH CUPI D PROCS * HEMOGLOBIN A1C (04/01/2024 7:06 AM COMMUNITY HEALTH CONSULTANT) Hemoglobin A1c 5.4 <5.7 % 04/01/2024 9:20 AM COMMUNITY HEALTH CONSULTANT [facility] Estimated Average Glucose 108 mg/dL 04/01/2024 9:20 AM [facility] Blood BLOOD SPECIMEN / Unknown Lab Venipuncture / Unknown 04/01/2024 7:06 AM COMMUNITY HEALTH CONSULTANT 04/01/2024 7:17 AM COMMUNITY HEALTH CONSULTANT Narrative [facility] - 04/01/2024 9:20 AM COMMUNITY HEALTH CONSULTANT HbA1c Interpretation: Normal: < 5.7% Pre-diabetes: 5.7-6.4% [...] Graves MD LAB - CHEMISTRY ROSEANNA KEE [facility] Organization Address City/State/ZIP Co de Phone Number [facility] [address] [place] [address] * (ABNORMAL) PTT (04/01/2024 7:06 AM COMMUNITY HEALTH CONSULTANT) Only the most recent of3 resultswithin the time period is included. PTT 71.8(H) 23.0 - 38.4 sec 04/01/2024 7:35 AM [facility] Blood BLOOD SPECIMEN / Unknown Lab Venipuncture / Unknown 04/01/2024 7:06 AM COMMUNITY HEALTH CONSULTANT 04/01/2024 7:17 AM COMMUNITY HEALTH CONSULTANT Narrative [facility] - 04/01/2024 7:35 AM COMMUNITY HEALTH CONSULTANT Heparin Therapeutic Range for PTT: 69.0 - 110.0 seconds. Emanuel Simons MD LAB - COAGULA TION ORDERABLES [facility] [address] [place] [address] * (ABNORMAL) LIPID PROFILE (04/01/2024 6:41 AM COMMUNITY HEALTH CONSULTANT) Cholesterol 195 <200 mg/dL 04/01/2024 10:41 AM [facility] Triglycerides 272(H) <150 mg/dL 04/01/2024 10:41 AM [facility] HDL Cholesterol 35(L) >40 mg/dL 10:41 AM [facility] LDL Calculated 106 <130 mg/dL 04/01/2024 10:41 AM [facility] VLDL Calculated 54(H) <=30 mg/dL 10:41 AM [facility] Chol HDL Ratio 5.6(H) <4.5 04/01/2024 10:41 AM [facility] LDL/HDL Ratio 3.0 <5.0 04/01/2024 10:41 AM [facility] Blood BLOOD SPECIMEN / Unknown Lab Venipuncture / Unknown 04/01/2024 6:41 AM COMMUNITY HEALTH CONSULTANT 04/01/2024 6:46 AM COMMUNITY HEALTH CONSULTANT Tejas Graves MD LAB - CHEMISTRY ROSEANNA KEE Performing Organization Address City/[facility]/ZIP Co de Phone Number [facility] [address] [place] [address] * (ABNORMAL) TROPONIN-I HIGH SENSITIVE (03/31/2024 3:11 PM COMMUNITY HEALTH CONSULTANT) Only the most recent of2 resultswithin the time period is included. Troponin I High Sensitive 5,189(HH) <=14 ng/L 03/31/2024 4:00 PM [facility] Blood BLOOD SPECIMEN / Unknown Lab Venipuncture / Unknown 03/31/2024 3:11 PM COMMUNITY HEALTH CONSULTANT 03/31/2024 3:19 PM COMMUNITY HEALTH CONSULTANT Tejas Graves MD LAB - CHEMISTRY ORDPaul KEE [facility] Organization Address City/State/ZIP Co de Phone Number [facility] [address] [address] * CT Angio Chest Pulm Embolism (03/31/2024 2:32 PM COMMUNITY HEALTH CONSULTANT) Anatomical Region Laterality Modality Chest Computed Tomogra phy 03/31/2024 2:41 PM COMMUNITY HEALTH CONSULTANT Impressions 03/31/2024 2:43 PM COMMUNITY HEALTH CONSULTANT IMPRESSION: 1. No pulmonary embolism. 2. Findings most consistent with congestive heart failure with interstitial and alveolar pulmonary edema and small pleural effusion. Differential includes infection. > Interpreting Provider: Daniele Pino MD on 03/31/2024 2:43 PM Narrative 03/31/2024 2:43 PM COMMUNITY HEALTH CONSULTANT PROCEDURE: CT ANGIO CHEST PULM EMBOLISM DATE/TIME [...] ACID BLOOD (03/31/2024 1:36 PM COMMUNITY HEALTH CONSULTANT) Only the most recent of2 resultswithin the time period is included. Lactic Acid 2.9(H) <=2 mmol/L 03/31/2024 2:07 PM COMMUNITY HEALTH CONSULTANT [facility] Blood BLOOD SPECIMEN / Unknown Lab Venipuncture / Unknown 03/31/2024 1:36 PM COMMUNITY HEALTH CONSULTANT 03/31/2024 1:52 PM COMMUNITY HEALTH CONSULTANT Tejas Graves MD LAB - CHEMISTRY ROSEANNA KEE [facility] Organization Address City/State/ZIP Co de Phone Number [facility] [address] [address] [phone]- [phone] * CULTURE BLOOD (03/31/2024 10:28 AM COMMUNITY HEALTH CONSULTANT) Only the most recent of2 resultswithin the time period is included. Culture No growth day 5 ADE 04/05/2024 2:01 PM COMMUNITY HEALTH CONSULTANT [facility] Blood PERIPHERAL BLOOD / Unknown Lab Venipuncture / Unknown 03/31/2024 10:28 AM COMMUNITY HEALTH CONSULTANT 03/31/2024 10:32 AM COMMUNITY HEALTH CONSULTANT Tejas Graves MD LAB - MICROBIOLOGY O RDERABLES [facility] [address] [place] [address] [phone] * ERYTHROCYTE SEDIMENTATION RATE (03/31/2024 10:16 AM COMMUNITY HEALTH CONSULTANT) Pathologist [facility] Erythrocyte Sedimentation Rate Automated 14 0 - 30 MM/HR 03/31/2024 10:36 AM COMMUNITY HEALTH CONSULTANT [facility] Blood BLOOD SPECIMEN / Unknown Lab Venipuncture / Unknown 03/31/2024 10:16 AM COMMUNITY HEALTH CONSULTANT 03/31/2024 10:32 AM COMMUNITY HEALTH CONSULTANT Tejas Graves MD LAB - HEMATOLOGY ORD ERABLES [facility] [address] [id number] * (ABNORMAL) B-TYPE NATRIURETIC PEPTIDE (03/31/2024 10:16 AM COMMUNITY HEALTH CONSULTANT) BNP 516(H) <=100 pg/mL 03/31/2024 10:55 AM COMMUNITY HEALTH CONSULTANT [facility] Blood BLOOD SPECIMEN / Unknown Lab Venipuncture / Unknown 03/31/2024 10:16 AM COMMUNITY HEALTH CONSULTANT 03/31/2024 10:32 AM COMMUNITY HEALTH CONSULTANT Narrative [facility] - 03/31/2024 10:55 AM COMMUNITY HEALTH CONSULTANT A cutoff of 100 pg/mL has been [...] Graves MD LAB - CHEMISTRY ROSEANNA KEE [facility] Organization Address City/State/ZIP Co de Phone Number [facility] [address] [place] [address] * BLOOD GASES ARTERIAL (03/31/2024 9:29 AM COMMUNITY HEALTH CONSULTANT) pH Arterial 7.44 7.35 - 7.45 pH 03/31/2024 9:33 AM COMMUNITY HEALTH CONSULTANT [facility] pO2 Arterial 84 80 - 100 mmHg 03/31/2024 9:33 AM COMMUNITY HEALTH CONSULTANT [facility] pCO2 Arterial 36 35 - 45 mmHg 03/31/2024 9:33 AM COMMUNITY HEALTH CONSULTANT [facility] HCO3 Arterial 24.5 22.0 - 26.0 mmol/L 03/31/2024 9:33 AM COMMUNITY HEALTH CONSULTANT [facility]ERAP[facility] BE Arterial 0.6 -2.0 - 2.0 mmol/L 03/31/2024 9:33 AM COMMUNITY HEALTH CONSULTANT [facility]ERAP[facility] O2 Saturation Arterial 99 90 - 100 % 03/31/2024 9:33 AM COMMUNITY HEALTH CONSULTANT [facility] Temperature (C) 37.0 C 9:33 AM COMMUNITY HEALTH CONSULTANT [facility] RES[facility]ERAP[facility] Galen's Test Positive 03/31/2024 9:33 AM COMMUNITY HEALTH CONSULTANT [facility] Mode Bipap 03/31/2024 9:33 AM COMMUNITY HEALTH CONSULTANT [facility] FI O2 40.0 % 03/31/2024 9:33 AM COMMUNITY HEALTH CONSULTANT [facility] BIPAP Insp Pressure (cmH2O) 10 03/31/2024 9:33 AM COMMUNITY HEALTH CONSULTANT [facility] BIPAP Exp Pressure (cmH2O) 5 03/31/2024 9:33 AM COMMUNITY HEALTH CONSULTANT [facility] P/F Ratio 210 03/31/2024 9:33 AM COMMUNITY HEALTH CONSULTANT [facility] Blood ARTERIAL BLOOD SPECIMEN / Unknown 03/31/2024 9:29 AM COMMUNITY HEALTH CONSULTANT 03/31/2024 9:29 AM COMMUNITY HEALTH CONSULTANT Tejas Graves MD LAB - BLOOD GASES OR DERABLES Performing Organization Address [facility]/ZIP Co de Phone Number [facility] [address] [address], [place] * TSH REFLEX FREE T4 (03/31/2024 9:25 AM COMMUNITY HEALTH CONSULTANT) TSH 1.568 0.350 - 4.940 uIU/mL 03/31/2024 10:20 AM COMMUNITY HEALTH CONSULTANT [facility] Blood BLOOD SPECIMEN / Unknown Lab Venipuncture / Unknown 03/31/2024 9:25 AM COMMUNITY HEALTH CONSULTANT 03/31/2024 9:30 AM COMMUNITY HEALTH CONSULTANT Tejas Graves MD LAB - CHEMISTRY ORDE CHILANGO Performing Organization Address [facility] Co de Phone Number [facility] [address] [address] * (ABNORMAL) C-REACTIVE PROTEIN (03/31/2024 9:25 AM COMMUNITY HEALTH CONSULTANT) C-Reactive Protein 1.35(H) <=0.50 mg/dL 03/31/2024 9:58 AM COMMUNITY HEALTH CONSULTANT [facility] Blood BLOOD SPECIMEN / Unknown Lab Venipuncture / Unknown 03/31/2024 9:25 AM COMMUNITY HEALTH CONSULTANT 03/31/2024 9:30 AM COMMUNITY HEALTH CONSULTANT Tejas Graves MD LAB - CHEMISTRY ROSEANNA KEE Performing Organization Address [facility]/ZIP Co de Phone Number [facility] [address] [address] * (ABNORMAL) COMPREHENSIVE METABOLIC PANEL (03/31/2024 9:25 AM COMMUNITY HEALTH CONSULTANT) Glucose 170(H) 70 - 99 mg/dL 03/31/2024 9:47 AM COMMUNITY HEALTH CONSULTANT [facility] Sodium 142 136 - 145 mmol/L 03/31/2024 9:47 AM [facility] Potassium 4.0 3.5 - 5.1 mmol/L 03/31/2024 9:47 AM [facility] Chloride 109(H) 98 - 107 mmol/L 03/31/2024 9:47 AM [facility] CO2 21(L) 22 - 29 mmol/L 03/31/2024 9:47 AM [facility] Calcium 9.2 8.4 - 10.4 mg/dL 03/31/2024 9:47 AM [facility] Anion Gap 12 6 - 16 mmol/L 03/31/2024 9:47 AM [facility] BUN 20 7 - 26 mg/dL 03/31/2024 9:47 AM [facility] Creatinine 0.80 0.57 - 1.11 mg/dL 03/31/2024 9:47 AM [facility] Alkaline Phosphatase 120 40 - 150 U/L 03/31/2024 9:47 AM [facility] ALT 21 0 - 55 U/L 03/31/2024 9:47 AM [facility] AST 33 5 - 34 U/L 03/31/2024 9:47 AM [facility] Protein Total 7.0 6.4 - 8.3 gm/dL 03/31/2024 9:47 AM [facility] Albumin 3.6 3.4 - 5.0 gm/dL 03/31/2024 9:47 AM [facility] Bilirubin Total 0.4 0.2 - 1.2 mg/dL 03/31/2024 9:47 AM [facility] eGFR by CKD-EPI 83(L) >=90 mL/min/1.7 3 m2 03/31/2024 9:47 AM [facility] Blood BLOOD SPECIMEN / Unknown Lab Venipuncture / Unknown 03/31/2024 9:25 AM COMMUNITY HEALTH CONSULTANT 03/31/2024 9:30 AM COMMUNITY HEALTH CONSULTANT Tejas Graves MD LAB - CHEMISTRY ROSEANNA KEE [facility] [address] [id number] from Last 3 Months Advance Directives * Full Code (Latest Code Status on File) Date Activated Date Inactivated Comments 04/01/2024 9:41 AM 04/03/2024 12:47 PM * Full Code Date Activated Date Inactivated Comments 03/31/2024 9:24 AM 04/01/2024 9:41 AM Care Teams Product Development Manager Relationship Specialty Start Date End Date Sara Irene, DIRECTOR PERSONAL-CORPORATE WELLNESS COORDINATOR [address] [place] [address] PCP - General Nurse Practitioner Family 08/29/22
== END 2024-04-29 10:15 | disposition home or self-care (01) ==
LOC: CHSIMG 10:16
PROVIDERS: PCP Nurse Practitioner Family; Visit Provider Urology
DX: Z87.442 Personal history of urinary calculi (principal); K59.00 Constipation, unspecified
CPT/HCPCS: 74018

== ENCOUNTER 2024-05-06 07:48 | Outpatient (CLI) | payer MEDICARE, SELFPAY ==
--- OUTSIDE RECORDS SUMMARY | 2024-05-06 07:51 | XMS_ITS | Clinical Summary ---
Author Organization [facility] Address [address] [place] [address] Care Team Providers Care Towel Distributor Name Role Phone Sara Irene APRN-FORMING ROLL OPERATOR Primary Care Provid er Source Comments [facility],non-owned Affiliates and Associated Physician Practices is amultiple site organization consisting of ambulatory clinics and hospital sitesin [place], [place], [place] and [place]. This disclosure is being madepursuant to the Care Everywhere program and may not contain all information available regarding this patient. Last updated 17.[facility] Allergies Active Allergy Reactions Criticality Noted Date [...] fluticasone propionate (Flonase) 50 MCG/ACT nasal spray [place]land 1 (one) spray into each nostril once [...] for 30 days 30 tablet 04/03/2024 Active metoprolol succinate XL 24hr (Toprol XL) 25 MG tablet Take 1 (one) tablet by mouth at bedtime for 30 days 30 tablet 04/03/2024 Active nitroGLYCERIN (Nitrostat) 0.4 MG tablet Dissolve 1 (one) tablet under the tongue every 5 minutes as needed for Angina 30 tablet 04/03/2024 Active spironolactone (Aldactone) 25 MG tablet Take 1 (one) tablet by mouth once daily for 30 days 30 tablet 04/03/2024 Active Oxygen Oxygen while sleeping at 2 L/min via nasal cannula - Estimate length of need (number of months): Lifetime 1 Each 04/03/2024 Active potassium chloride ER (K-TAB) 20 MEQ tablet Take 1 (one) tablet by mouth daily with breakfast for 30 days 30 tablet 04/04/2024 05/04/2024 Active Problems Problem Noted Date Diagnosed Date Sepsis with acute hypoxic re spiratory failure, due to unspecified organism, unspecified whether septic shock present 03/31/2024 Hoarseness of voice 12/15/2023 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 Not hard at all 04/01/2024 [facility] [place] [facility] Occupat ional [facility] - Occupational Stress [...] any time in the past 12 m [facility], were you homeless or living in a halfway (including now)? No 03/31/2024 Sex and Gender Information Value Date Recorded Sex Assigned at Not on file Gender Identity Not on file Sexual Orientation Not on file Last Filed Vital Signs Vital Sign Reading Time Taken Comments Blood Pressure 142/99 04/03/2024 7:59 AM [facility] Pulse 89 04/03/2024 9:18 AM [facility] Temperature 36.6 C (97.9 F) 04/03/2024 7:59 AM [facility] Respiratory Rate 18 04/03/2024 9:18 AM [facility] Oxygen Saturation 99% 04/03/2024 9:18 AM [facility] Inhaled Oxygen Concentration 40% 03/31/2024 4 :59 PM [facility] Weight 73.5 kg (162 lb) 04/02/2024 4:11 AM [facility] Height 157.5 cm (5' 2 ) 03/31/2024 10:03 AM [facility] Body Mass Index 29.63 03/31/2024 10:03 AM [facility] Plan of Treatment Upcoming Encounters Date Type Department Care Team (Late st Contact Info) Description 06/14/2024 9:00 AM CDT Office Visit [facility] - ENT [address] [place] [phone] Kash Garcia MD [address] [place] [address] DEPT [place] [address] Health Maintenance Due Date Last [...] CALENDAR YEAR 2024 SCREENING FOR DIABETES 04/03/2027 , 04/03/2024, 04/02/2024, Additional history exists DTAP/TDAP/TD VACCINES [...] CARDIAC RHYTHM STRIP ORDER 04/05/2024 1:14 AM [facility] GLUCOSE - POINT OF CARE Routine 04/03/2024 7:59 AM [facility] PHOSPHORUS BLOOD STAT 04/03/2024 7:31 AM [facility] MAGNESIUM BLOOD STAT 04/03/2024 7:31 AM [facility] BASIC METABOLIC PANEL (CALCIUM TOTAL) STAT 04/03/2024 7:31 AM [facility] PT-INR Routine 04/03/2024 7:19 AM [facility] CBC W AUTO DIFFERENTIAL Routine 04/03/2024 7:19 AM [facility] GLUCOSE - POINT OF CARE Routine 04/02/2024 4:54 PM [facility] GLUCOSE - POINT OF CARE Routine 04/02/2024 4:41 PM [facility] GLUCOSE - POINT OF CARE Routine 04/02/2024 11:28 AM [facility] REJECTED SPUTUM GRAM STAIN Routine 04/02/2024 11:28 AM [facility] GLUCOSE - POINT OF CARE Routine 04/02/2024 6:19 AM [facility] PROCALCITONIN LEVEL AM Draw 04/02/2024 5 :54 AM [facility] BASIC METABOLIC PANEL (CALCIUM TOTAL) AM Draw 04/02/2024 5:54 AM [facility] PHOSPHORUS BLOOD AM Draw 04/02/2024 5:54 AM [facility] MAGNESIUM BLOOD Routine 04/02/2024 5:54 AM [facility] PT-INR Routine 04/02/2024 5:54 AM [facility] CBC W AUTO DIFFERENTIAL Routine 04/02/2024 5:54 AM [facility] XR CHEST 1VW PORTABLE Routine 04/02/2024 5:40 AM [facility] Acute respiratory failure with hypoxia GLUCOSE - POINT OF CARE Routine 04/01/2024 8:12 PM [facility] GLUCOSE - POINT OF CARE Routine 04/01/2024 4:35 PM [facility] SARS-COV-2 (COVID-19) FLU A/B RSV PCR RAPID STAT 04/01/2024 1:24 PM [facility] GLUCOSE - POINT OF CARE Routine 04/01/2024 11:54 AM [facility] ECHO COMPLETE W CONTRAST Routine 04/01/2024 11:34 AM [facility] Sepsis with acute hypoxic respiratory failure, due to unspecified organism, unspecified whether septic shock present CCL LEFT HEART CATH Routine 04/01/2024 9 :32 AM [facility] PTT Timed 04/01/2024 7:06 AM [facility] PT-INR Routine 04/01/2024 7:06 AM [facility] HEMOGLOBIN A1C Routine 04/01/2024 7:06 AM [facility] CBC W AUTO DIFFERENTIAL AM Draw 04/01/2024 7:06 AM [facility] GLUCOSE - POINT OF CARE Routine 04/01/2024 6:41 AM [facility] LIPID PROFILE AM Draw 04/01/2024 6:41 AM [facility] BASIC METABOLIC PANEL (CALCIUM TOTAL) AM Draw 04/01/2024 6:41 AM [facility] PTT Timed 03/31/2024 11:32 PM [facility] GLUCOSE - POINT OF CARE Routine 03/31/2024 4:50 PM [facility] PTT Routine 03/31/2024 4:39 PM [facility] PT-INR Routine 03/31/2024 4:39 PM [facility] TROPONIN-I HIGH SENSITIVE Routine 03/31/2024 3:[address] [address] ANGIO CHEST PULM EMBOLISM Routine 03/31/2024 2:32 PM [facility] Sepsis with acute hypoxic respiratory failure, due to unspecified organism, unspecified whether septic shock present LACTIC ACID BLOOD STAT 03/31/2024 1:3 6 PM [facility] TROPONIN-I HIGH SENSITIVE STAT 03/31/2024 12:46 PM [facility] GLUCOSE - POINT OF CARE Routine 03/31/2024 12:09 PM [facility] CULTURE BLOOD STAT 03/31/2024 10:28 AM [facility] ERYTHROCYTE SEDIMENTATION RATE Routine 03/31/2024 10:16 AM [facility] PROCALCITONIN LEVEL STAT 03/31/2024 1 0:16 AM [facility] B-TYPE NATRIURETIC PEPTIDE STAT 03/31/2024 10:16 AM [facility] CULTURE BLOOD STAT 03/31/2024 10:16 AM [facility] XR CHEST 1VW PORTABLE Routine 03/31/2024 9:52 AM [facility] Sepsis with acute hypoxic respiratory failure, due to unspecified organism, unspecified whether septic shock present BLOOD GASES ARTERIAL RT Routine 03/31/2024 9:29 AM [facility] C-REACTIVE PROTEIN Routine 03/31/2024 9: 25 AM [facility] TSH REFLEX FREE T4 Routine 03/31/2024 9: 25 AM [facility] LACTIC ACID BLOOD STAT 03/31/2024 9:2 5 AM [facility] COMPREHENSIVE METABOLIC PANEL STAT 03/31/2024 9:25 AM [facility] CBC W AUTO DIFFERENTIAL STAT 03/31/2024 9:25 AM [facility] PT EVAL AND TREAT Routine 03/31/2024 9:2 3 AM [facility] OT EVAL AND TREAT Routine 03/31/2024 9:2 3 AM [facility] from Last 3 Months Results * CARDIAC RHYTHM STRIP ORDER (04/05/2024 1:14 AM [facility]) Narrative 04/05/2024 1:14 AM [facility] Ordered by an unspecified provider. Scanned Document CARDIAC SERVICES ORD ERABLES * (ABNORMAL) GLUCOSE - POINT OF CARE (04/03/2024 7:59 AM [facility]) Only the most recent of11 resultswithin the time period is included. Glucose WB/POC 102(H) 70 - 99 mg/dL 04/03/2024 8:10 AM [facility] Specimen Type Cap Fingerstick 2024 8:10 AM [facility] Blood BLOOD SPECIMEN / Unknown 04/03/2024 7:59 AM [facility] 04/03/2024 8:10 AM [facility] Elodia Varela MD LAB - POINT OF CARE ORDERABLES [facility] [address] [address] * (ABNORMAL) BASIC METABOLIC PANEL (CALCIUM TOTAL) (04/03/2024 7:31 AM [facility]) Only the most recent of3 resultswithin the time period is included. [facility] Glucose 113(H) 70 - 99 mg/dL 04/03/2024 8:[address] [facility] Sodium 139 136 - 145 mmol/L 04/03/2024 8:[address] [facility] Potassium 4.3 3.5 - 5.1 mmol/L 04/03/2024 8:[address] [facility] Chloride 107 98 - 107 mmol/L 04/03/2024 8:[address] [facility] CO2 20(L) 22 - 29 mmol/L 04/03/2024 8:[address] [facility] Calcium 9.9 8.4 - 10.4 mg/dL 04/03/2024 8:[address] [facility] Anion Gap 12 6 - 16 mmol/L 04/03/2024 8:[address] [facility] BUN 28(H) 7 - 26 mg/dL 04/03/2024 8:[address] [facility] Creatinine 0.80 0.57 - 1.11 mg/dL 04/03/2024 8:[address] [facility] eGFR by CKD-EPI 83(L) >=90 mL/min/1.7 3 m2 04/03/2024 8:[address] [facility] Blood BLOOD SPECIMEN / Unknown Lab Venipuncture / Unknown 04/03/2024 7:31 AM [facility] 04/03/2024 7:37 AM [facility] Mariah Chavez PA-C LAB - CHEMISTRY ORDERABLES [facility] [address] [id number] * PHOSPHORUS BLOOD (04/03/2024 7:31 AM [facility]) Only the most recent of2 resultswithin the time period is included. Phosphorus 3.2 2.5 - 4.5 mg/dL 04/03/2024 8:05 AM [facility] Blood BLOOD SPECIMEN / Unknown Lab Venipuncture / Unknown 04/03/2024 7:31 AM [facility] 04/03/2024 7:37 AM [facility] Mariah Chavez PA-C LAB - CHEMISTRY ORDERABLES Performing Organization Address City/[facility]/ZIP Co de Phone Number [facility] [address] [place], [place] [id number] * MAGNESIUM BLOOD (04/03/2024 7:31 AM [facility]) Only the most recent of2 resultswithin the time period is included. Magnesium 2.1 1.6 - 2.6 mg/dL 04/03/2024 8:[address] [facility] Blood BLOOD SPECIMEN / Unknown Lab Venipuncture / Unknown 04/03/2024 7:31 AM [facility] 04/03/2024 7:37 AM [facility] Mariah Chavez PA-C LAB - CHEMISTRY ORDERABLES Performing Organization Address City/[facility]/ZIP Co de Phone Number [facility] [address] [place] [address] * PT-INR (04/03/2024 7:19 AM [facility]) Only the most recent of4 resultswithin the time period is included. PT 13.6 12.1 - 14.8 sec 04/03/2024 7:[address] [facility] INR 1.0 0.9 - 1.1 04/03/2024 7:[address] [facility] Blood BLOOD SPECIMEN / Unknown Lab Venipuncture / Unknown 04/03/2024 7:19 AM [facility] 04/03/2024 7:31 AM [facility] Narrative [facility] - 04/03/2024 7:48 AM [facility] Conventional Warfarin Anticoagulant Therapy: INR Reference Range: 2.0-3.0 Intensive Warfarin Anticoagulant Therapy: INR Reference Range: 2.5-3.5 Emanuel Simons MD LAB - COAGULA TION ORDERABLES [facility] [address] [address] * CBC W AUTO DIFFERENTIAL (04/03/2024 7:19 AM [facility]) Only the most recent of4 resultswithin the time period is included. [facility] WBC 7.5 4.0 - 10.7 x10E9/L 04/03/2024 8:[address] [facility] RBC Count 4.92 3.90 - 5.20 x10E12/L 04/03/2024 8:[address] [facility] Hemoglobin 14.7 11.9 - 15.8 g/dL 04/03/2024 8:[address] [facility] Hematocrit 42.5 34.8 - 46.1 % 04/03/2024 8:[address] [facility] MCV 86.4 80.0 - 98.0 fL 04/03/2024 8:[address] [facility] MCH 29.9 26.7 - 33.6 pg 04/03/2024 8:[address] [facility] MCHC 34.6 31.7 - 36.3 g/dL 04/03/2024 8:[address] [facility] RDW-CV 13.7 11.3 - 14.8 % 04/03/2024 8:[address] [facility] Platelet Count 209 150 - 420 x10E9/L 04/03/2024 8:[address] [facility] MPV 11.2 7.8 - 11.4 fL 04/03/2024 8:[address] [facility] Neutrophil % 64.5 41.0 - 74.0 % 04/03/2024 8:[address] [facility] Lymphocyte % 26.1 17.0 - 47.0 % 04/03/2024 8:[address] [facility] Monocyte % 6.6 3.0 - 11.0 % 04/03/2024 8:[address] [facility] Eosinophil % 1.3 0.0 - 7.0 % 04/03/2024 8:[address] [facility] Basophil % 1.2 0.0 - 1.6 % 04/03/2024 8:[address] [facility] Immature Granulocytes % 0.3 0.0 - 1.0 % 04/03/2024 8:[address] [facility] Neutrophil Absolute 4.82 1.60 - 7.50 x10E9/L 04/03/2024 8:[address] [facility] Lymphocyte Absolute 1.95 1.00 - 4.40 x10E9/L 04/03/2024 8:[address] [facility] Monocyte Absolute 0.49 0.15 - 1.00 x10E9/L 04/03/2024 8:[address] [facility] Eosinophil Absolute 0.10 0.00 - 0.60 x10E9/L 04/03/2024 8:[address] [facility] Basophil Absolute 0.09 0.00 - 0.13 x10E9/L 04/03/2024 8:[address] [facility] Blood BLOOD SPECIMEN / Unknown Lab Venipuncture / Unknown 04/03/2024 7:19 AM [facility] 04/03/2024 7:31 AM [facility] Emanuel Simons MD LAB - HEMATOL OGY ORDERABLES [facility] [place] [address] * REJECTED SPUTUM GRAM STAIN (04/02/2024 11:28 AM [facility]) Gram Stain < 25 per low power field Polymorphonuclear cells. Consistent with poor quality specimen. 04/02/2024 3:51 PM [facility] MICRO[facility] Gram Stain Recollect if clinically indicated. 04/02/2024 3:[address] [facility] MICROBIOLOG[facility] Microbiology SPUTUM / Unknown Collection / Unknown 04/02/2024 11:28 AM [facility] 04/02/2024 11:34 AM [facility] Wei Greco MD LAB - MICROBIOLOGY O RDERABLES [facility] [address] [address], [facility] [phone] * PROCALCITONIN LEVEL (04/02/2024 5:54 AM [facility]) Only the most recent of2 resultswithin the time period is included. Procalcitonin 0.07 <0.10 ng/mL 04/02/2024 6:56 AM [facility] Blood BLOOD SPECIMEN / Unknown Lab Venipuncture / Unknown 04/02/2024 5:54 AM [facility] 04/02/2024 6:17 AM [facility] Narrative [facility] - 04/02/2024 6:56 AM [facility] The change in procalcitonin (PCT) concentration over [...] Change in Procalcitonin Calculator is available at [email or web address] If clinical picture has not improved and PCT remains high, reevaluate and consider treatment failure or other causes. Rodríguez Benz MD LAB - CHEMISTRY ROSEANNA Liang Organization Address City/State/ZIP Co de Phone Number [facility] [address] [address] * XR Chest 1Vw Portable (04/02/2024 5:40 AM [facility]) Only the most recent of2 resultswithin the time period is included. Anatomical Region Laterality Modality Chest Radiographic Pattie ging 04/02/2024 7:58 AM [facility] Impressions 04/02/2024 8:08 AM [facility] IMPRESSION: Decreased bilateral airspace disease. Edited by Phoebe Rico on 04/02/2024 8:03 AM > Interpreting Provider: Rod Palma MD on 04/02/2024 8:08 AM Narrative 04/02/2024 8:08 AM [facility] XR CHEST 1VW PORTABLE INDICATION: J96.01: Acute [...] A/B RSV PCR RAPID (04/01/2024 1:24 PM [facility]) COVID-19 PCR Not detected Not detected 04/01/19 2:24 PM [facility] Influenza A PCR Not detected Not detected 04/01/2024 2:24 PM [facility] Influenza B PCR Not detected Not detected 04/01/2024 2:24 PM [facility] RSV PCR Not detected Not detected 04/01/2024 2:24 PM [facility] Microbiology SPECIMEN FROM NASOPHARYNGEAL STRUCTURE / Unknown Collection / Unknown 04/01/2024 1:24 PM [facility] 04/01/2024 1:39 PM [facility] Narrative [facility] - 04/01/2024 2:24 PM [facility] This nucleic acid amplification assay has been [...] Varela MD LAB - MICROBIOLOGY O RDERABLES [facility] [address] [address] * ECHO COMPLETE W CONTRAST (04/01/2024 11:34 AM [facility]) AV pk grad 8.2 mmHg SSM CV [...] Laterality Modality Ultrasound 04/01/2024 11:0 0 AM [facility] Narrative 04/01/2024 5:26 PM [facility] Summary * Normal left ventricular size, global/ [...] 11:00 AM Patient Status: I/P Study Site: PSYCHIATRIC Primary Location: [facility] EStudy Info Technical Quality: Technically Difficult [...] Provider: Tejas Graves Attending Physician: Tejas Graves Lot Attendant: Gaby Morales Left Ventricle Normal left ventricular [...] 11:00 AM Patient Status: I/P Study Site: PSYCHIATRIC Primary Location: [facility] EStudy Info Technical Quality: Technically Difficult [...] Provider: Tejas Graves Attending Physician: Tejas Graves Lot Attendant: Gaby Morales Left Ventricle Normal left ventricular [...] CCL LEFT HEART CATH (04/01/2024 9:32 AM [facility]) Anatomical Region Laterality Modality X-Ray Angiograph y Narrative 04/01/2024 9:46 AM [facility] Procedures Moderate sedation Left heart cardiac catheterization, selective coronary angiogram and left ventriculogram Indication-NSTEMI CRYSTALIZER OPERATOR-Chris Conte MD After informed consent was obtained the patient was transferred to the cardiac catheterization laboratory where bilateral groin areas were draped and prepped in sterile fashion. 1% lidocaine was utilized to achieve local anesthesia in the right femoral area. Utilizing Doppler guided ultrasound we accessed the right femoral artery and placed a 6 Samoan sheath without any problems. A 5 Samoan FL4 diagnostic catheter was utilized to cannulate the left main coronary artery and several angiographic views were obtained in different orthogonal planes of the left main LAD and left circumflex arteries. The catheter was exchanged over the wire for a 5 Samoan FR4 and that catheter was utilized to [...] arteriotomy site was closed utilizing a 6 Samoan Angio-Seal device with good hemostasis and no complications Estimated blood loss 30 cc Complications none Sedation Versed 2 mg IV and fentanyl 50 mcg IV Procedure Details Estimated Blood Loss: 30 mL Chris Conte MD CV CARDIAC CATH CUPI D PROCS * HEMOGLOBIN A1C (04/01/2024 7:06 AM [facility]) Hemoglobin A1c 5.4 <5.7 % 04/01/2024 9:[address] [facility] Estimated Average Glucose 108 mg/dL 04/01/2024 9:[address] [facility] Blood BLOOD SPECIMEN / Unknown Lab Venipuncture / Unknown 04/01/2024 7:06 AM [facility] 04/01/2024 7:17 AM [facility] Narrative [facility] - 04/01/2024 9:20 [facility] [...] Organization Address City/State/ZIP Co de Phone Number [facility] [address] [address] * (ABNORMAL) PTT (04/01/2024 7:06 AM [facility]) Only the most recent of3 resultswithin the time period is included. PTT 71.8(H) 23.0 - 38.4 sec 04/01/2024 7:35 AM [facility] Blood BLOOD SPECIMEN / Unknown Lab Venipuncture / Unknown 04/01/2024 7:06 AM [facility] 04/01/2024 7:17 AM [facility] Narrative [facility] - 04/01/2024 7:35 AM [facility] Heparin Therapeutic Range for PTT: 69.0 - 110.0 seconds. Emanuel Simons MD LAB - COAGULA TION ORDERABLES Performing Organization Address City/[facility]/ZIP Co de Phone Number [facility] [address] [place] [address] * (ABNORMAL) LIPID PROFILE (04/01/2024 6:41 AM [facility]) Cholesterol 195 <200 mg/dL 04/01/2024 10:41 AM [facility] Triglycerides 272(H) <150 mg/dL 04/01/2024 10:41 AM [facility] HDL Cholesterol 35(L) >40 mg/dL 10:41 AM [facility] LDL Calculated 106 <130 mg/dL 04/01/2024 10:41 AM [facility] VLDL Calculated 54(H) <=30 mg/dL 5 10:41 AM [facility] Chol HDL Ratio 5.6(H) <4.5 04/01/2024 10:41 AM [facility] LDL/HDL Ratio 3.0 <5.0 04/01/2024 10:41 AM [facility] Blood BLOOD SPECIMEN / Unknown Lab Venipuncture / Unknown 04/01/2024 6:41 AM [facility] 04/01/2024 6:46 AM [facility] Tejas Graves MD LAB - CHEMISTRY ROSEANNA KEE [facility] [address] [place] [address] * (ABNORMAL) TROPONIN-I HIGH SENSITIVE (03/31/2024 3:11 PM [facility]) Only the most recent of2 resultswithin the time period is included. Troponin I High Sensitive 5,189(HH) <=14 ng/L 03/31/2024 4:00 PM [facility] Blood BLOOD SPECIMEN / Unknown Lab Venipuncture / Unknown 03/31/2024 3:11 PM [facility] 03/31/2024 3:19 PM [facility] Tejas Graves MD LAB - CHEMISTRY ORDPaul KEE [facility] Organization Address City/State/ZIP Co de Phone Number [facility] [address] [place] [address] * CT Angio Chest Pulm Embolism (03/31/2024 2:32 PM [facility]) Anatomical Region Laterality Modality Chest Computed Tomogra phy 03/31/2024 2:41 PM [facility] Impressions 03/31/2024 2:43 PM [facility] IMPRESSION: 1. No pulmonary embolism. 2. Findings most consistent with congestive heart failure with interstitial and alveolar pulmonary edema and small pleural effusion. Differential includes infection. > Interpreting Provider: Daniele Pino MD on 03/31/2024 2:43 PM Narrative 03/31/2024 2:43 PM [facility] PROCEDURE: CT ANGIO CHEST PULM EMBOLISM DATE/TIME [...] (ABNORMAL) LACTIC ACID BLOOD (03/31/2024 1:36 PM [facility]) Only the most recent of2 resultswithin the time period is included. Lactic Acid 2.9(H) <=2 mmol/L 03/31/2024 2:07 PM [facility] Blood BLOOD SPECIMEN / Unknown Lab Venipuncture / Unknown 03/31/2024 1:36 PM [employer] 03/31/2024 1:52 PM [employer] Tejas Graves MD LAB - CHEMISTRY ROSEANNA KEE Performing Organization Address City/[facility] Co de Phone Number [facility] [address] [place] [address] * CULTURE BLOOD (03/31/2024 10:28 AM [employer]) Only the most recent of2 resultswithin the time period is included. Pathologist [facility] [place] Culture No growth day 5 ADE 04/05/2024 2:01 PM [employer] [facility] MICROBIOLOGY Blood PERIPHERAL BLOOD / Unknown Lab Venipuncture / Unknown 03/31/2024 10:28 AM [employer] 03/31/2024 10:32 AM [employer] Tejas Graves MD LAB - MICROBIOLOGY O RDERABLES Performing Organization Address [facility] Co de Phone Number [facility] MICROBIOLOGY [address] [place], [place] [address] [phone] * ERYTHROCYTE SEDIMENTATION RATE (03/31/2024 10:16 AM [employer]) Pathologist [facility] [place] Erythrocyte Sedimentation Rate Automated 14 0 - 30 MM/HR 03/31/2024 10:36 AM [employer] [facility] Blood BLOOD SPECIMEN / Unknown Lab Venipuncture / Unknown 03/31/2024 10:16 AM [employer] 03/31/2024 10:32 AM [employer] Tejas Graves MD LAB - HEMATOLOGY ORD ERABLES Performing Organization Address [facility] Co de Phone Number [facility] [address] [place] [address] * (ABNORMAL) B-TYPE NATRIURETIC PEPTIDE (03/31/2024 10:16 AM [employer]) BNP 516(H) <=100 pg/mL 03/31/2024 10:[address] [facility] Blood BLOOD SPECIMEN / Unknown Lab Venipuncture / Unknown 03/31/2024 10:16 AM [employer] 03/31/2024 10:32 AM [employer] Narrative [facility] - 03/31/2024 10:55 AM [employer] A cutoff of 100 pg/mL has been [...] Graves MD LAB - CHEMISTRY ROSEANNA KEE [facility] Organization Address City/State/ZIP Co de Phone Number [facility] [address] [place] [address] * BLOOD GASES ARTERIAL (03/31/2024 9:29 AM [employer]) Pathologist [facility] [place] pH Arterial 7.44 7.35 - 7.45 pH 03/31/2024 9:33 AM [employer] [facility] RESP THERAP[facility] pO2 Arterial 84 80 - 100 mmHg 03/31/2024 9:33 AM [employer] [facility] pCO2 Arterial 36 35 - 45 mmHg 03/31/2024 9:33 AM [employer] [facility] HCO3 Arterial 24.5 22.0 - 26.0 mmol/L 03/31/2024 9:33 AM [employer] [facility] BE Arterial 0.6 -2.0 - 2.0 mmol/L 03/31/2024 9:33 AM [employer] [facility] O2 Saturation Arterial 99 90 - 100 % 03/31/2024 9:33 AM [employer] [facility] Temperature (C) 37.0 C 9:33 AM [employer] [facility]ER[facility] Galen's Test Positive 03/31/2024 9:33 AM [employer] [facility] Mode Bipap 03/31/2024 9:33 AM [employer] [facility] FI O2 40.0 % 03/31/2024 9:33 AM [employer] [facility] BIPAP Insp Pressure (cmH2O) 10 03/31/2024 9:33 AM [employer] [facility] BIPAP Exp Pressure (cmH2O) 5 03/31/2024 9:33 AM [employer] [facility] P/F Ratio 210 03/31/2024 9:33 AM [employer] [facility] Blood ARTERIAL BLOOD SPECIMEN / Unknown 03/31/2024 9:29 AM [employer] 03/31/2024 9:29 AM [employer] Tejas Graves MD LAB - BLOOD GASES OR DERABLES Performing Organization Address [facility] Co de Phone Number PSYCHIATRIC RESP THERAPY [address] [place] [address] * TSH REFLEX FREE T4 (03/31/2024 9:25 AM [employer]) TSH 1.568 0.350 - 4.940 uIU/mL 03/31/2024 10:20 AM [employer] [facility] Blood BLOOD SPECIMEN / Unknown Lab Venipuncture / Unknown 03/31/2024 9:25 AM [employer] 03/31/2024 9:30 AM [employer] Tejas Graves MD LAB - CHEMISTRY ORDE RABRORY Performing Organization Address [facility] de Phone Number [facility] [address] [address] * (ABNORMAL) C-REACTIVE PROTEIN (03/31/2024 9:25 AM [employer]) C-Reactive Protein 1.35(H) <=0.50 mg/dL 03/31/2024 9:58 AM [employer] [facility] Blood BLOOD SPECIMEN / Unknown Lab Venipuncture / Unknown 03/31/2024 9:25 AM [employer] 03/31/2024 9:30 AM [employer] Tejas Graves MD LAB - CHEMISTRY ORDPaul KEE Performing Organization Address [facility] Co de Phone Number [facility] [address] [place] [address] * (ABNORMAL) COMPREHENSIVE METABOLIC PANEL (03/31/2024 9:25 AM [facility]) [facility] Signature Glucose 170(H) 70 - 99 mg/dL 03/31/2024 9:[address] [facility] Sodium 142 136 - 145 mmol/L 03/31/2024 9:[address] [facility] Potassium 4.0 3.5 - 5.1 mmol/L 03/31/2024 9:[address] [facility] Chloride 109(H) 98 - 107 mmol/L 03/31/2024 9:[address] [facility] CO2 21(L) 22 - 29 mmol/L 03/31/2024 9:[address] [facility] Calcium 9.2 8.4 - 10.4 mg/dL 03/31/2024 9:[address] [facility] Anion Gap 12 6 - 16 mmol/L 03/31/2024 9:[address] [facility] BUN 20 7 - 26 mg/dL 03/31/2024 9:[address] [facility] Creatinine 0.80 0.57 - 1.11 mg/dL 03/31/2024 9:[address] [facility] Alkaline Phosphatase 120 40 - 150 U/L 03/31/2024 9:[address] [facility] ALT 21 0 - 55 U/L 03/31/2024 9:[address] [facility] AST 33 5 - 34 U/L 03/31/2024 9:[address] [facility] Protein Total 7.0 6.4 - 8.3 gm/dL 03/31/2024 9:[address] [facility] Albumin 3.6 3.4 - 5.0 gm/dL 03/31/2024 9:[address] [facility] Bilirubin Total 0.4 0.2 - 1.2 mg/dL 03/31/2024 9:[address] [facility] eGFR by CKD-EPI 83(L) >=90 mL/min/1.7 3 m2 03/31/2024 9:[address] [facility] Blood BLOOD SPECIMEN / Unknown Lab Venipuncture / Unknown 03/31/2024 9:25 AM [employer] 03/31/2024 9:30 AM [employer] Tejas Graves MD LAB - CHEMISTRY ROSEANNA KEE [facility] [address] [address] from Last 3 Months Advance Directives * Full Code (Latest Code Status on File) Date Activated Date Inactivated Comments 04/01/2024 9:41 AM 04/03/2024 12:47 PM * Full Code Date Activated Date Inactivated Comments 03/31/2024 9:24 AM 04/01/2024 9:41 AM Care Teams Towel Distributor Relationship Specialty Start Date End Date Sara Irene, IMPREGNATOR OPERATOR-FORMING ROLL OPERATOR [address] [place] [address] PCP - General Nurse Practitioner Family 08/29/22
[2024-05-06 08:35] LABS: Anion Gap 7 mmol/L (4-12); Blood Urea Nitrogen 19 mg/dL (7-18); Calcium 9.2 mg/dL (8.5-10.1); Carbon Dioxide 31 mmol/L (21-32); Chloride 101 mmol/L (98-108); Estimated Glomerular Filt Rate > 60; Glucose 90 mg/dL (70-99); Osmolality Calculated 290 mOsm/kg (285-295); Potassium 4.3 mmol/L (3.5-5.1); Sodium 139 mmol/L (136-145)
== END 2024-05-06 07:49 | disposition home or self-care (01) ==
LOC: CHSLAB 07:49
PROVIDERS: PCP Nurse Practitioner Family; Visit Provider Internal Medicine Cardiovascular Disease
DX: I51.9 Heart disease, unspecified (principal)
CPT/HCPCS: 36415; 80048; 83735

== ENCOUNTER 2024-06-10 07:47 | Outpatient (CLI) | payer MEDICARE, SELFPAY ==
--- OUTSIDE RECORDS SUMMARY | 2024-06-10 07:50 | XMS_ITS | Clinical Summary ---
Author Organization [facility] Address [address] [place] [address] Care Team Providers Care Manager Payroll Name Role Phone Sara Irene APRN-BRAKESHOE REPAIRER Primary Care Provid er Source Comments [facility],non-owned Affiliates and Associated Physician Practices is amultiple site organization consisting of ambulatory clinics and hospital sitesin [place], [place], [place] and [place]. This disclosure is being madepursuant to the Care Everywhere program and may not contain all information available regarding this patient. Last updated 17.[facility] Allergies Active Allergy Reactions Criticality Noted Date Comments Codeine Nausea and/or Vomiting Low 05/12/2020 Methylprednisolone Palpitations 03/31/2024 Morphine Nausea and/or Vomiting Low 01/22/2013 Dizziness Penicillin G Anaphylaxis High 01/22/2013 Medications * Be aware that medications may not be up to date on this document. Alwaysverify current medications with the patient. rosuvastatin (Crestor) 20 MG tablet Take 1 (one) tablet by mouth once daily 3 Active montelukast (Singulair) 10 MG tablet Take 1 (one) tablet by mouth once daily 3 Active PARoxetine (Paxil) 20 MG tablet Take 1 (one) tablet by mouth once daily 3 Active Myrbetriq 25 MG tablet Take 1 (one) tablet by mouth once daily 3 Active fluticasone propionate (Flonase) 50 MCG/ACT nasal spray Weems 1 (one) spray into each nostril once daily 3 Active omeprazole (PriLOSEC) 20 MG capsule Take 1 (one) capsule by mouth daily before breakfast Active acetaminophen (Tylenol) 500 MG tablet Take 1 (one) tablet by mouth every 6 hours as needed for Fever or Pain Maximum allowable Acetaminophen amount = 4 Grams (4000 mg) / 24 hours. 60 tablet 3 Active albuterol (5 MG/ML) 0.5% 2.5 mg in sodium chloride 0.9 % 3 mL Inhale 2.5 (two and one-half) mg by mouth 3 times daily Active cyclobenzaprin e (Flexeril) 10 MG tablet Take 1 (one) tablet by mouth as needed 3 Active Other Inhale 1 Each by mouth at bedtime Oxygen Active Breo Ellipta 100-25 MCG/ACT inhaler Inhale 1 (one) puff by mouth once daily Active albuterol HFA (Proventil; Ventolin; Proair) 108 (90 Base) MCG/ACT inhaler Inhale 2 (two) puffs by mouth every 6 hours as needed Active aspirin EC (Ecotrin) 81 MG tablet Take 1 (one) tablet by mouth once daily 30 tablet 5 Active furosemide (Lasix) 40 MG tablet Take 1 (one) tablet by mouth once daily for 30 days 30 tablet 5 Active metoprolol succinate XL 24hr (Toprol XL) 25 MG tablet Take 1 (one) tablet by mouth at bedtime for 30 days 30 tablet 5 Active nitroGLYCERIN (Nitrostat) 0.4 MG tablet Dissolve 1 (one) tablet under the tongue every 5 minutes as needed for Angina 30 tablet 5 Active spironolactone (Aldactone) 25 MG tablet Take 1 (one) tablet by mouth once daily for 30 days 30 tablet 5 Active Oxygen Oxygen while sleeping at 2 L/min via nasal cannula - Estimate length of need (number of months): Lifetime 1 Each 5 Active Active Problems Problem Noted Date Diagnosed Date Sepsis with acute hypoxic re spiratory failure, due to unspecified organism, unspecified whether septic shock present 03/31/2024 Hoarseness of voice 12/15/2023 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 Encounters Date Type Department Care Team Description 04/01/2024 8:30 AM NUTRITION AIDE - 04/01/2024 10:00 AM NUTRITION AIDE [facility] - Cardiac Chemistry Lecturer [address] [id number] Chris Conte MD Left Heart Cath 03/31/2024 9:06 AM NUTRITION AIDE - 04/03/2024 11:42 AM NUTRITION AIDE Hospital Encounter [facility] 5N MEDICAL [address] [address] Juliana Siddiqui MD Sood, Anshu, MD Choudhary, Swati, MD Hospitalist Discharge Disposition: Home or Self Care 03/31/2024 Travel from Last 3 Months Immunizations Immunization Administration Dates Next Due Covid Moderna primary [...] and heating? Not hard at all 04/01/2024 [facility] - Occupational Stress [...] any time in the past 12 m [facility], were you homeless or living in a senior living (including now)? No 03/31/2024 Comments Unknown Sex and Gender Information Value Date Recorded Sex Assigned at Not on file Legal Sex Female 6:39 PM NUTRITION AIDE Gender Identity Not on file Sexual Orientation Not on file Last Filed Vital Signs Vital Sign Reading Time Taken Comments Blood Pressure 142/99 04/03/2024 7:59 AM NUTRITION AIDE Pulse 89 04/03/2024 9:18 AM NUTRITION AIDE Temperature 36.6 C (97.9 F) 04/03/2024 7:59 AM NUTRITION AIDE Respiratory Rate 18 04/03/2024 9:18 AM NUTRITION AIDE Oxygen Saturation 99% 04/03/2024 9:18 AM NUTRITION AIDE Inhaled Oxygen Concentration 40% 03/31/2024 4 :59 PM NUTRITION AIDE Weight 73.5 kg (162 lb) 04/02/2024 4:11 AM NUTRITION AIDE Height 157.5 cm (5' 2 ) 03/31/2024 10:03 AM NUTRITION AIDE Body Mass Index 29.63 03/31/2024 10:03 AM NUTRITION AIDE Plan of Treatment Upcoming Encounters Date Type Department Care Team (Late st Contact Info) Description 06/14/2024 9:00 AM CDT Office Visit [facility] - ENT [address], [place] [address] Kash Garcia MD [address] [place] [id number] Health Maintenance Due Date Last Done Comments [...] 60-74 years 1-dose series) 2020 COVID-19 VACCINE ( - season) 2023 05/22/2020, 04/24/2020 DEPRESSION SCREENING 02/07/2024 MEDICARE AWV CALENDAR YEAR 2024 INFLUENZA VACCINE (Season Ended) 2024 12/07/2020, 11/13/2019, 11/29/2018, Additional history exists SCREENING FOR DIABETES 04/03/2027 , 04/03/2024, 04/02/2024, [...] CARDIAC RHYTHM STRIP ORDER 04/05/2024 1:14 AM NUTRITION AIDE GLUCOSE - POINT OF CARE Routine 04/03/2024 7:59 AM NUTRITION AIDE PHOSPHORUS BLOOD STAT 04/03/2024 7:3 1 AM NUTRITION AIDE MAGNESIUM BLOOD STAT 04/03/2024 7:31 AM NUTRITION AIDE BASIC METABOLIC PANEL (CALCIUM TOTAL) STAT 04/03/2024 7:31 AM NUTRITION AIDE PT-INR Routine 04/03/2024 7:19 AM NUTRITION AIDE CBC W AUTO DIFFERENTIAL Routine 04/03/2024 7:19 AM NUTRITION AIDE GLUCOSE - POINT OF CARE Routine 04/02/2024 4:54 PM NUTRITION AIDE GLUCOSE - POINT OF CARE Routine 04/02/2024 4:41 PM NUTRITION AIDE GLUCOSE - POINT OF CARE Routine 04/02/2024 11:28 AM NUTRITION AIDE REJECTED SPUTUM GRAM STAIN Routine 04/02/2024 11:28 AM NUTRITION AIDE GLUCOSE - POINT OF CARE Routine 04/02/2024 6:19 AM NUTRITION AIDE PROCALCITONIN LEVEL AM Draw 04/02/2024 5 :54 AM NUTRITION AIDE BASIC METABOLIC PANEL (CALCIUM TOTAL) AM Draw 04/02/2024 5:54 AM NUTRITION AIDE PHOSPHORUS BLOOD AM Draw 04/02/2024 5:54 AM NUTRITION AIDE MAGNESIUM BLOOD Routine 04/02/2024 5:54 AM NUTRITION AIDE PT-INR Routine 04/02/2024 5:54 AM NUTRITION AIDE CBC W AUTO DIFFERENTIAL Routine 04/02/2024 5:54 AM NUTRITION AIDE XR CHEST 1VW PORTABLE Routine 04/02/2024 5:40 AM NUTRITION AIDE Acute respiratory failure with hypoxia GLUCOSE - POINT OF CARE Routine 04/01/2024 8:12 PM NUTRITION AIDE GLUCOSE - POINT OF CARE Routine 04/01/2024 4:35 PM NUTRITION AIDE SARS-COV-2 (COVID-19) FLU A/B RSV PCR RAPID STAT 04/01/2024 1:24 PM NUTRITION AIDE GLUCOSE - POINT OF CARE Routine 04/01/2024 11:54 AM NUTRITION AIDE ECHO COMPLETE W CONTRAST Routine 04/01/2024 11:34 AM NUTRITION AIDE Sepsis with acute hypoxic respiratory failure, due to unspecified organism, unspecified whether septic shock present CCL LEFT HEART CATH Routine 04/01/2024 9 :32 AM NUTRITION AIDE PTT Timed 04/01/2024 7:06 AM NUTRITION AIDE PT-INR Routine 04/01/2024 7:06 AM NUTRITION AIDE HEMOGLOBIN A1C Routine 04/01/2024 7:06 AM NUTRITION AIDE CBC W AUTO DIFFERENTIAL AM Draw 04/01/2024 7:06 AM NUTRITION AIDE GLUCOSE - POINT OF CARE Routine 04/01/2024 6:41 AM NUTRITION AIDE LIPID PROFILE AM Draw 04/01/2024 6:41 AM NUTRITION AIDE BASIC METABOLIC PANEL (CALCIUM TOTAL) AM Draw 04/01/2024 6:41 AM NUTRITION AIDE PTT Timed 03/31/2024 11:32 PM NUTRITION AIDE GLUCOSE - POINT OF CARE Routine 03/31/2024 4:50 PM NUTRITION AIDE PTT Routine 03/31/2024 4:39 PM NUTRITION AIDE PT-INR Routine 03/31/2024 4:39 PM NUTRITION AIDE TROPONIN-I HIGH SENSITIVE Routine 03/31/2024 3:[address] ANGIO CHEST PULM EMBOLISM Routine 03/31/2024 2:32 PM NUTRITION AIDE Sepsis with acute hypoxic respiratory failure, due to unspecified organism, unspecified whether septic shock present LACTIC ACID BLOOD STAT 03/31/2024 1:3 6 PM NUTRITION AIDE TROPONIN-I HIGH SENSITIVE STAT 03/31/2024 12:46 PM NUTRITION AIDE GLUCOSE - POINT OF CARE Routine 03/31/2024 12:09 PM NUTRITION AIDE CULTURE BLOOD STAT 03/31/2024 10:28 AM NUTRITION AIDE ERYTHROCYTE SEDIMENTATION RATE Routine 03/31/2024 10:16 AM NUTRITION AIDE PROCALCITONIN LEVEL STAT 03/31/2024 1 0:16 AM NUTRITION AIDE B-TYPE NATRIURETIC PEPTIDE STAT 03/31/2024 10:16 AM NUTRITION AIDE CULTURE BLOOD STAT 03/31/2024 10:16 AM NUTRITION AIDE XR CHEST 1VW PORTABLE Routine 03/31/2024 9:52 AM NUTRITION AIDE Sepsis with acute hypoxic respiratory failure, due to unspecified organism, unspecified whether septic shock present BLOOD GASES ARTERIAL RT Routine 03/31/2024 9:29 AM NUTRITION AIDE C-REACTIVE PROTEIN Routine 03/31/2024 9: 25 AM NUTRITION AIDE TSH REFLEX FREE T4 Routine 03/31/2024 9: 25 AM NUTRITION AIDE LACTIC ACID BLOOD STAT 03/31/2024 9:2 5 AM NUTRITION AIDE COMPREHENSIVE METABOLIC PANEL STAT 03/31/2024 9:25 AM NUTRITION AIDE CBC W AUTO DIFFERENTIAL STAT 03/31/2024 9:25 AM NUTRITION AIDE PT EVAL AND TREAT Routine 03/31/2024 9:2 3 AM NUTRITION AIDE OT EVAL AND TREAT Routine 03/31/2024 9:2 3 AM NUTRITION AIDE from Last 3 Months Results * CARDIAC RHYTHM STRIP ORDER (04/05/2024 1:14 AM NUTRITION AIDE) Narrative 04/05/2024 1:14 AM NUTRITION AIDE Ordered by an unspecified provider. us Scanned Document CARDIAC SERVICES ORDERABLES Fin al Result * (ABNORMAL) GLUCOSE - POINT OF CARE (04/03/2024 7:59 AM NUTRITION AIDE) Only the most recent of11 resultswithin the time period is included. Glucose WB/POC 102(H) 70 - 99 mg/dL 04/03/2024 8:10 AM NUTRITION AIDE [facility] Specimen Type Cap Fingerstick 2024 8:10 AM NUTRITION AIDE [facility] Blood BLOOD SPECIMEN / Unknown 04/03/2024 7:59 AM NUTRITION AIDE 04/03/2024 8:10 AM NUTRITION AIDE us Elodia Varela MD LAB - POINT OF CARE ORDERABLE S Final Result [facility] [address] [address] * (ABNORMAL) BASIC METABOLIC PANEL (CALCIUM TOTAL) (04/03/2024 7:31 AM NUTRITION AIDE) Only the most recent of3 resultswithin the time period is included. [facility] Glucose 113(H) 70 - 99 mg/dL 04/03/2024 8:05 AM [facility] Sodium 139 136 - 145 mmol/L 04/03/2024 8:05 AM [facility] Potassium 4.3 3.5 - 5.1 mmol/L 04/03/2024 8:05 AM [facility] Chloride 107 98 - 107 mmol/L 04/03/2024 8:05 AM [facility] CO2 20(L) 22 - 29 mmol/L 04/03/2024 8:05 AM [facility] Calcium 9.9 8.4 - 10.4 mg/dL 04/03/2024 8:05 AM [facility] Anion Gap 12 6 - 16 mmol/L 04/03/2024 8:05 AM [facility] BUN 28(H) 7 - 26 mg/dL 04/03/2024 8:05 AM [facility] Creatinine 0.80 0.57 - 1.11 mg/dL 04/03/2024 8:05 AM [facility] eGFR by CKD-EPI 83(L) >=90 mL/min/1.7 3 m2 04/03/2024 8:05 AM [facility] Blood BLOOD SPECIMEN / Unknown Lab Venipuncture / Unknown 04/03/2024 7:31 AM NUTRITION AIDE 04/03/2024 7:37 AM NUTRITION AIDE us Mariah Chavez PA-C LAB - CHEMISTRY ORDERABL ES Final Result [facility] [address] [id number] * PHOSPHORUS BLOOD (04/03/2024 7:31 AM NUTRITION AIDE) Only the most recent of2 resultswithin the time period is included. Phosphorus 3.2 2.5 - 4.5 mg/dL 04/03/2024 8:05 AM NUTRITION AIDE [facility] Blood BLOOD SPECIMEN / Unknown Lab Venipuncture / Unknown 04/03/2024 7:31 AM NUTRITION AIDE 04/03/2024 7:37 AM NUTRITION AIDE Mariah Chavez PA-C LAB - CHEMISTRY ORDERABL ES Final Result Performing Organization Address City/[facility]/ZIP Co de Phone Number [facility] [address] [place] [phone] * MAGNESIUM BLOOD (04/03/2024 7:31 AM NUTRITION AIDE) Only the most recent of2 resultswithin the time period is included. Magnesium 2.1 1.6 - 2.6 mg/dL 04/03/2024 8:05 AM [facility] Blood BLOOD SPECIMEN / Unknown Lab Venipuncture / Unknown 04/03/2024 7:31 AM NUTRITION AIDE 04/03/2024 7:37 AM NUTRITION AIDE Mariah Chavez PA-C LAB - CHEMISTRY ORDERABL ES Final Result Performing Organization Address City/[facility] Co de Phone Number [facility] [address] [place], [place] [address] [address] * PT-INR (04/03/2024 7:19 AM NUTRITION AIDE) Only the most recent of4 resultswithin the time period is included. PT 13.6 12.1 - 14.8 sec 04/03/2024 7:48 AM [facility] INR 1.0 0.9 - 1.1 04/03/2024 7:48 AM [facility] Blood BLOOD SPECIMEN / Unknown Lab Venipuncture / Unknown 04/03/2024 7:19 AM NUTRITION AIDE 04/03/2024 7:31 AM NUTRITION AIDE Narrative [facility] - 04/03/2024 7:48 AM [facility] [email or web address]] Conventional Warfarin Anticoagulant Therapy: INR Reference Range: 2.0-3.0 Intensive Warfarin Anticoagulant Therapy: INR Reference Range: 2.5-3.5 us Emanuel Simons MD LAB - COAGULATION ORD ERABLES Final Result [facility] [address] [place] [address] * CBC W AUTO DIFFERENTIAL (04/03/2024 7:19 AM [facility] [[email or web address] Only the most recent of4 resultswithin the time period is included. WBC 7.5 4.0 - 10.7 x10E9/L 04/03/2024 8:02 AM [facility] RBC Count 4.92 3.90 - 5.20 x10E12/L 04/03/2024 8:02 AM [facility] Hemoglobin 14.7 11.9 - 15.8 g/dL 04/03/2024 8:02 AM [facility] Hematocrit 42.5 34.8 - 46.1 % 04/03/2024 8:02 AM [facility] MCV 86.4 80.0 - 98.0 fL 04/03/2024 8:02 AM [facility] MCH 29.9 26.7 - 33.6 pg 04/03/2024 8:02 AM [facility] MCHC 34.6 31.7 - 36.3 g/dL 04/03/2024 8:02 AM [facility] RDW-CV 13.7 11.3 - 14.8 % 04/03/2024 8:02 AM [facility] Platelet Count 209 150 - 420 x10E9/L 04/03/2024 8:02 AM [facility] MPV 11.2 7.8 - 11.4 fL 04/03/2024 8:02 AM [facility] Neutrophil % 64.5 41.0 - 74.0 % 04/03/2024 8:02 AM [facility] Lymphocyte % 26.1 17.0 - 47.0 % 04/03/2024 8:02 AM [facility] Monocyte % 6.6 3.0 - 11.0 % 04/03/2024 8:02 AM [facility] Eosinophil % 1.3 0.0 - 7.0 % 04/03/2024 8:02 AM [facility] Basophil % 1.2 0.0 - 1.6 % 04/03/2024 8:02 AM [facility] Immature Granulocytes % 0.3 0.0 - 1.0 % 04/03/2024 8:02 AM [facility] Neutrophil Absolute 4.82 1.60 - 7.50 x10E9/L 04/03/2024 8:02 AM [facility] Lymphocyte Absolute 1.95 1.00 - 4.40 x10E9/L 04/03/2024 8:02 AM [facility] Monocyte Absolute 0.49 0.15 - 1.00 x10E9/L 04/03/2024 8:02 AM [facility] Eosinophil Absolute 0.10 0.00 - 0.60 x10E9/L 04/03/2024 8:02 AM [facility] Basophil Absolute 0.09 0.00 - 0.13 x10E9/L 04/03/2024 8:02 AM [facility] Blood BLOOD SPECIMEN / Unknown Lab Venipuncture / Unknown 04/03/2024 7:19 AM NUTRITION AIDE 04/03/2024 7:31 AM NUTRITION AIDE us Emanuel Simons MD LAB - HEMATOLOGY ROSEANNA KEE Final Result [facility] [place] [address] * REJECTED SPUTUM GRAM STAIN (04/02/2024 11:28 AM NUTRITION AIDE) Gram Stain < 25 per low power field Polymorphonuclear cells. Consistent with poor quality specimen. 04/02/2024 3:51 PM [facility] MICROBIOLOG[facility] Gram Stain Recollect if clinically indicated. 04/02/2024 3:51 PM [facility] MICRO[facility]OLOGY Microbiology SPUTUM / Unknown Collection / Unknown 04/02/2024 11:28 AM NUTRITION AIDE 04/02/2024 11:34 AM NUTRITION AIDE us Wei Greco MD LAB - MICROBIOLOGY ORDERABLES Fi nal Result [facility] [address] [address] [phone] * PROCALCITONIN LEVEL (04/02/2024 5:54 AM NUTRITION AIDE) Only the most recent of2 resultswithin the time period is included. Procalcitonin 0.07 <0.10 ng/mL 04/02/2024 6:56 AM NUTRITION AIDE [facility] Blood BLOOD SPECIMEN / Unknown Lab Venipuncture / Unknown 04/02/2024 5:54 AM NUTRITION AIDE 04/02/2024 6:17 AM NUTRITION AIDE Narrative [facility] - 04/02/2024 6:56 AM NUTRITION AIDE The change in procalcitonin (PCT) concentration over [...] Change in Procalcitonin Calculator is available at [email or web address] If clinical picture has not improved and PCT remains high, reevaluate and consider treatment failure or other causes. Rodríguez Benz MD LAB - CHEMISTRY ORDERABLES Final Result [facility] [address] [id number] * XR Chest 1Vw Portable (04/02/2024 5:40 AM NUTRITION AIDE) Only the most recent of2 resultswithin the time period is included. Anatomical Region Laterality Modality Chest Radiographic Pattie ging 04/02/2024 7:58 AM NUTRITION AIDE Impressions 04/02/2024 8:08 AM NUTRITION AIDE IMPRESSION: Decreased bilateral airspace disease. Edited by Phoebe Rico on 04/02/2024 8:03 AM > Interpreting Provider: Rod Palma MD on 04/02/2024 8:08 AM Narrative 04/02/2024 8:08 AM NUTRITION AIDE XR CHEST 1VW PORTABLE INDICATION: J96.01: Acute [...] 8:08 AM Rodríguez Benz MD DIAGNOSTIC IMAGING ORDERABLES Fi nal Result * SARS-COV-2 (COVID-19) FLU A/B RSV PCR RAPID (04/01/2024 1:24 PM NUTRITION AIDE) COVID-19 PCR Not detected Not detected 04/01/19 2:24 PM NUTRITION AIDE [facility] Influenza A PCR Not detected Not detected 04/01/2024 2:24 PM NUTRITION AIDE [facility] Influenza B PCR Not detected Not detected 04/01/2024 2:24 PM NUTRITION AIDE [facility] RSV PCR Not detected Not detected 04/01/2024 2:24 PM NUTRITION AIDE [facility] Microbiology SPECIMEN FROM NASOPHARYNGEAL STRUCTURE / Unknown Collection / Unknown 04/01/2024 1:24 PM NUTRITION AIDE 04/01/2024 1:39 PM NUTRITION AIDE Narrative [facility] - 04/01/2024 2:24 PM NUTRITION AIDE This nucleic acid amplification assay has been [...] this EUA assay are available upon request. us Elodia Varela MD LAB - MICROBIOLOGY ORDERABLES Final Result [facility] [address] [id number] * ECHO COMPLETE W CONTRAST (04/01/2024 11:34 AM NUTRITION AIDE) AV pk grad 8.2 mmHg [facility] CV [...] Laterality Modality Ultrasound 04/01/2024 11:0 0 AM NUTRITION AIDE Narrative 04/01/2024 5:26 PM NUTRITION AIDE Summary * Normal left ventricular size, global/ [...] AM Patient Status: I/P Study Site: [facility] Primary Location: [facility] EStudy Info Technical Quality: Technically Difficult Exam [...] Provider: Tejas Graves Attending Physician: Tejas Graves Gusset Maker: Gaby Morales Left Ventricle Normal left ventricular [...] AM Patient Status: I/P Study Site: [facility] Primary Location: [facility] EStudy Info Technical Quality: Technically Difficult Exam [...] Provider: Tejas Graves Attending Physician: Tejas Graves Gusset Maker: Gaby Morales Left Ventricle Normal left ventricular [...] by Emanuel Simons on 04/01/2024 05:26 PM us Tejas Graves MD ECHO CUPID Final Result * CCL LEFT HEART CATH (04/01/2024 9:32 AM NUTRITION AIDE) Anatomical Region Laterality Modality X-Ray Angiograph y Narrative 04/01/2024 9:46 AM NUTRITION AIDE Procedures Moderate sedation Left heart cardiac catheterization, selective coronary angiogram and left ventriculogram Indication-NSTEMI DIRECTOR OF NUCLEAR MEDICINE-Chris Conte MD After informed consent was obtained the patient was transferred to the cardiac catheterization laboratory where bilateral groin areas were draped and prepped in sterile fashion. 1% lidocaine was utilized to achieve local anesthesia in the right femoral area. Utilizing Doppler guided ultrasound we accessed the right femoral artery and placed a 6 [place] sheath without any problems. A 5 [place] FL4 diagnostic catheter was utilized to cannulate the left main coronary artery and several angiographic views were obtained in different orthogonal planes of the left main LAD and left circumflex arteries. The catheter was exchanged over the wire for a 5 [place] FR4 and that catheter was utilized to [...] arteriotomy site was closed utilizing a 6 [place] Angio-Seal device with good hemostasis and no complications Estimated blood loss 30 cc Complications none Sedation Versed 2 mg IV and fentanyl 50 mcg IV Procedure Details Estimated Blood Loss: 30 mL us Chris Conte MD CV CARDIAC CATH CUPID PROCS Fi nal Result * HEMOGLOBIN A1C (04/01/2024 7:06 AM NUTRITION AIDE) Hemoglobin A1c 5.4 <5.7 % 04/01/2024 9:20 AM [facility] Estimated Average Glucose 108 mg/dL 04/01/2024 9:20 AM [facility] Blood BLOOD SPECIMEN / Unknown Lab Venipuncture / Unknown 04/01/2024 7:06 AM NUTRITION AIDE 04/01/2024 7:17 AM NUTRITION AIDE Narrative [facility] - 04/01/2024 9:20 AM NUTRITION AIDE HbA1c Interpretation: Normal: < 5.7% Pre-diabetes: 5.7-6.4% [...] exceeds 5% in the specimen. The [employer] assay for the measurement of HbA1c is a National Glycohemoglobin Standardization Program (NGSP) certified method. Tejas Graves MD LAB - CHEMISTRY ORDERABLES Final Result Performing Organization Address [facility]/ZIP Co de Phone Number [facility] [address] [place] [id number] * (ABNORMAL) PTT (04/01/2024 7:06 AM NUTRITION AIDE) Only the most recent of3 resultswithin the time period is included. PTT 71.8(H) 23.0 - 38.4 sec 04/01/2024 7:35 AM [facility] Blood BLOOD SPECIMEN / Unknown Lab Venipuncture / Unknown 04/01/2024 7:06 AM NUTRITION AIDE 04/01/2024 7:17 AM NUTRITION AIDE Narrative [facility] - 04/01/2024 7:35 AM NUTRITION AIDE Heparin Therapeutic Range for PTT: 69.0 - 110.0 seconds. Emanuel Simons MD LAB - COAGULATION ORD ERABLES Final Result Performing Organization Address [facility] Co de Phone Number [facility] [place] [place] [address] * (ABNORMAL) LIPID PROFILE (04/01/2024 6:41 AM NUTRITION AIDE) Cholesterol 195 <200 mg/dL 04/01/2024 10:[address] [facility] Triglycerides 272(H) <150 mg/dL 04/01/2024 10:[address] [facility] HDL Cholesterol 35(L) >40 mg/dL 5 10:[address] [facility] LDL Calculated 106 <130 mg/dL 04/01/2024 10:[address] [facility] VLDL Calculated 54(H) <=30 mg/dL 5 10:[address] [facility] Chol HDL Ratio 5.6(H) <4.5 04/01/2024 10:[address] [facility] LDL/HDL Ratio 3.0 <5.0 04/01/2024 10:[address] [facility] Blood BLOOD SPECIMEN / Unknown Lab Venipuncture / Unknown 04/01/2024 6:41 AM NUTRITION AIDE 04/01/2024 6:46 AM NUTRITION AIDE us Tejas Graves MD LAB - CHEMISTRY ORDERABLES Final Result [facility] [address] [place] [address] * (ABNORMAL) TROPONIN-I HIGH SENSITIVE (03/31/2024 3:11 PM NUTRITION AIDE) Only the most recent of2 resultswithin the time period is included. Troponin I High Sensitive 5,189(HH) <=14 ng/L 03/31/2024 4:00 PM NUTRITION AIDE [facility] Blood BLOOD SPECIMEN / Unknown Lab Venipuncture / Unknown 03/31/2024 3:11 PM NUTRITION AIDE 03/31/2024 3:19 PM NUTRITION AIDE Tejas Graves MD LAB - CHEMISTRY ORDERABLES Final Result Performing Organization Address City/[facility]/ZIP Co de Phone Number [facility] [address] [place] [address] * CT Angio Chest Pulm Embolism (03/31/2024 2:32 PM NUTRITION AIDE) Anatomical Region Laterality Modality Chest Computed Tomogra phy 03/31/2024 2:41 PM NUTRITION AIDE Impressions 03/31/2024 2:43 PM NUTRITION AIDE IMPRESSION: 1. No pulmonary embolism. 2. Findings most consistent with congestive heart failure with interstitial and alveolar pulmonary edema and small pleural effusion. Differential includes infection. > Interpreting Provider: Daniele Pino MD on 03/31/2024 2:43 PM Narrative 03/31/2024 2:43 PM NUTRITION AIDE PROCEDURE: CT ANGIO CHEST PULM EMBOLISM DATE/TIME [...] Daniele Pino MD on 03/31/2024 2:43 PM us Tejas Graves MD CT ORDERABLES Final Result * (ABNORMAL) LACTIC ACID BLOOD (03/31/2024 1:36 PM NUTRITION AIDE) Only the most recent of2 resultswithin the time period is included. Lactic Acid 2.9(H) <=2 mmol/L 03/31/2024 2:07 PM NUTRITION AIDE [facility] Blood BLOOD SPECIMEN / Unknown Lab Venipuncture / Unknown 03/31/2024 1:36 PM NUTRITION AIDE 03/31/2024 1:52 PM NUTRITION AIDE us Tejas Graves MD LAB - CHEMISTRY ORDERABLES Final Result [facility] [address] [place] [address] * CULTURE BLOOD (03/31/2024 10:28 AM NUTRITION AIDE) Only the most recent of2 resultswithin the time period is included. Culture No growth day 5 ADE 04/05/2024 2:01 PM NUTRITION AIDE [facility] Blood PERIPHERAL BLOOD / Unknown Lab Venipuncture / Unknown 03/31/2024 10:28 AM NUTRITION AIDE 03/31/2024 10:32 AM NUTRITION AIDE us Tejas Graves MD LAB - MICROBIOLOGY ORDERABLES Fi nal Result [facility] [address] [place] [address], [facility] [phone] * ERYTHROCYTE SEDIMENTATION RATE (03/31/2024 10:16 AM NUTRITION AIDE) Erythrocyte Sedimentation Rate Automated 14 0 - 30 MM/HR 03/31/2024 10:36 AM NUTRITION AIDE [facility] Blood BLOOD SPECIMEN / Unknown Lab Venipuncture / Unknown 03/31/2024 10:16 AM NUTRITION AIDE 03/31/2024 10:32 AM NUTRITION AIDE us Tejas Graves MD LAB - HEMATOLOGY ORDERABLES Gaviota l Result Performing Organization Address [facility] de Phone Number [facility] [address] [address] * (ABNORMAL) B-TYPE NATRIURETIC PEPTIDE (03/31/2024 10:16 AM NUTRITION AIDE) BNP 516(H) <=100 pg/mL 03/31/2024 10:55 AM [facility] Blood BLOOD SPECIMEN / Unknown Lab Venipuncture / Unknown 03/31/2024 10:16 AM NUTRITION AIDE 03/31/2024 10:32 AM NUTRITION AIDE Narrative [facility] - 03/31/2024 10:55 AM NUTRITION AIDE A cutoff of 100 pg/mL has been [...] dialysis. Tejas Graves MD LAB - CHEMISTRY ORDERABLES Final Result Performing Organization Address [facility] de Phone Number [facility] [address] [address] * BLOOD GASES ARTERIAL (03/31/2024 9:29 AM NUTRITION AIDE) pH Arterial 7.44 7.35 - 7.45 pH 03/31/2024 9:33 AM NUTRITION AIDE [facility]P [facility]ER[facility] pO2 Arterial 84 80 - 100 mmHg 03/31/2024 9:33 AM NUTRITION AIDE [facility]P THERAP[facility] pCO2 Arterial 36 35 - 45 mmHg 03/31/2024 9:33 AM NUTRITION AIDE [facility]ER[facility] HCO3 Arterial 24.5 22.0 - 26.0 mmol/L 03/31/2024 9:33 AM NUTRITION AIDE [facility]P THERAP[facility] BE Arterial 0.6 -2.0 - 2.0 mmol/L 03/31/2024 9:33 AM NUTRITION AIDE [facility]P [facility]ERAP[facility] O2 Saturation Arterial 99 90 - 100 % 03/31/2024 9:33 AM NUTRITION AIDE [facility]P [facility]ERAP[facility] Temperature (C) 37.0 C 9:33 AM NUTRITION AIDE [facility] RESP THERAPY Galen's Test Positive 03/31/2024 9:33 AM NUTRITION AIDE [facility] THERAP[facility] Mode Bipap 03/31/2024 9:33 AM NUTRITION AIDE [facility]ERAP[facility] FI O2 40.0 % 03/31/2024 9:33 AM NUTRITION AIDE [facility]P THERAP[facility] BIPAP Insp Pressure (cmH2O) 10 03/31/2024 9:33 AM NUTRITION AIDE [facility]P THERAP[facility] BIPAP Exp Pressure (cmH2O) 5 03/31/2024 9:33 AM NUTRITION AIDE [facility]P THERAP[facility] P/F Ratio 210 03/31/2024 9:33 AM [facility] Blood ARTERIAL BLOOD SPECIMEN / Unknown 03/31/2024 9:29 AM NUTRITION AIDE 03/31/2024 9:29 AM NUTRITION AIDE Tejas Graves MD LAB - BLOOD GASES ORDERABLES Fin al Result Performing Organization Address City/[facility]/ZIP Co de Phone Number [facility] [address] [place] [address] * TSH REFLEX FREE T4 (03/31/2024 9:25 AM NUTRITION AIDE) [facility] TSH 1.568 0.350 - 4.940 uIU/mL 03/31/2024 10:20 AM [facility] Blood BLOOD SPECIMEN / Unknown Lab Venipuncture / Unknown 03/31/2024 9:25 AM NUTRITION AIDE 03/31/2024 9:30 AM NUTRITION AIDE Tejas Graves MD LAB - CHEMISTRY ORDERABLES Final Result Performing Organization Address City/[facility]/ZIP Co de Phone Number [facility] [address] [address] * (ABNORMAL) C-REACTIVE PROTEIN (03/31/2024 9:25 AM NUTRITION AIDE) Pathologist [facility] C-Reactive Protein 1.35(H) <=0.50 mg/dL 03/31/2024 9:58 AM NUTRITION AIDE [facility] Blood BLOOD SPECIMEN / Unknown Lab Venipuncture / Unknown 03/31/2024 9:25 AM NUTRITION AIDE 03/31/2024 9:30 AM [facility] [[email or web address]] Tejsa Graves MD LAB - CHEMISTRY ORDERABLES Final Result [facility] [address] [place] [address] * (ABNORMAL) COMPREHENSIVE METABOLIC PANEL (03/31/2024 9:25 AM [facility] [[email or web address] Glucose 170(H) 70 - 99 mg/dL 03/31/2024 9:47 AM [facility] Sodium 142 136 - 145 mmol/L 03/31/2024 9:47 AM [facility] Potassium 4.0 3.5 - 5.1 mmol/L 03/31/2024 9:47 AM [facility] Chloride 109(H) 98 - 107 mmol/L 03/31/2024 9:47 AM [facility] CO2 21(L) 22 - 29 mmol/L 03/31/2024 9:47 AM [facility] Calcium 9.2 8.4 - 10.4 mg/dL 03/31/2024 9:47 AM [facility] Anion Gap 12 6 - 16 mmol/L 03/31/2024 9:47 AM [facility] BUN 20 7 - 26 mg/dL 03/31/2024 9:47 AM [facility] Creatinine 0.80 0.57 - 1.11 mg/dL 03/31/2024 9:47 AM [facility] Alkaline Phosphatase 120 40 - 150 U/L 03/31/2024 9:47 AM [facility] ALT 21 0 - 55 U/L 03/31/2024 9:47 AM [facility] AST 33 5 - 34 U/L 03/31/2024 9:47 AM [facility] Protein Total 7.0 6.4 - 8.3 gm/dL 03/31/2024 9:47 AM [facility] Albumin 3.6 3.4 - 5.0 gm/dL 03/31/2024 9:47 AM [facility] Bilirubin Total 0.4 0.2 - 1.2 mg/dL 03/31/2024 9:47 AM NUTRITION AIDE [facility] eGFR by CKD-EPI 83(L) >=90 mL/min/1.7 3 m2 03/31/2024 9:47 AM NUTRITION AIDE [facility] Blood BLOOD SPECIMEN / Unknown Lab Venipuncture / Unknown 03/31/2024 9:25 AM NUTRITION AIDE 03/31/2024 9:30 AM NUTRITION AIDE Tejas Graves MD LAB - CHEMISTRY ORDERABLES Final Result [facility] [address] [id number] from Last 3 Months Insurance MEDICAID - [place] [employer] MANAGED MEDICARE ADV Advance Directives * Full Code (Latest Code Status on File) Date Activated Date Inactivated Comments 04/01/2024 9:41 AM 04/03/2024 12:47 PM * Full Code Date Activated Date Inactivated Comments 03/31/2024 9:24 AM 04/01/2024 9:41 AM Care Teams Manager Payroll Relationship Specialty Start Date End Date Sara Irene, SENIOR [employer] REPA[employer] [address] [place] [address] PCP - General Nurse Practitioner Family 08/29/22
[2024-06-10 09:44] LABS: Cholesterol 143 mg/dL (0-200); HDL Direct 43 mg/dL (40-60); LDL Cholesterol Calculated 82 mg/dL (<130); Triglycerides 92 mg/dL (0-150)
== END 2024-06-10 07:48 | disposition home or self-care (01) ==
LOC: CHSLAB 07:48
PROVIDERS: PCP Family Medicine; Visit Provider Internal Medicine Cardiovascular Disease
DX: E78.00 Pure hypercholesterolemia, unspecified (principal)
CPT/HCPCS: 36415; 80061

== ENCOUNTER 2024-07-31 08:50 | Outpatient (CLI) | payer MEDICARE, MEDICAID, SELFPAY ==
[2024-08-02 14:57] LABS: Alternaria alternata IgE <0.10 kU/L; Alternaria alternata IgE Class 0; Aspergillus fumigatus IgE <0.10 kU/L; Bermuda Grass (G2) IgE <0.10 kU/L; Bermuda Grass (G2) IgE Class 0; Cat Dander IgE <0.10 kU/L; Cat Dander IgE Class 0; Cladosporium herbarum IgE <0.10 kU/L; Cladosporium herbarum IgE Clas 0; Cockroach IgE <0.10 kU/L; Cockroach IgE Clas 0; Common Ragweed IgE Class 0; Cottonwood IgE <0.10 kU/L; Dermatophagoides Farinae Class 0; Dermatophagoides Pterony Class 0; Dermatophagoides Pteronyssinus <0.10 kU/L; Dog Dander IgE <0.10 kU/L; Elm (T8) IgE <0.10 kU/L; Elm (T8) IgE Class 0; Hickory/Pecan IgE <0.10 kU/L; Hickory/Pecan IgE Class 0; Immunoglobulin E 4 kU/L (<OR=114); Maple Box Elder IgE Class 0; Mountain Cedar IgE <0.10 kU/L; Mountain Cedar IgE Class 0; Mouse Urine Proteins IgE <0.10 kU/L; Mouse Urine Proteins IgE Class 0; Oak IgE <0.10 kU/L; Peniciliium notatum class 0; Penicillium notatum (M1) IgE <0.10 kU/L; Rough Marsh <0.10 kU/L; Rough Marsh Elder Class 0; Rough Pigweed (W14) IgE <0.10 kU/L; Rough Pigweed (W14) IgE Class 0; Russian Thistle <0.10 kU/L; Sycamore IgE <0.10 kU/L; Sycamore IgE Class 0; Timothy Grass IgE <0.10 kU/L; Timothy Grass IgE Class 0; Walnut Tree IgE <0.10 kU/L; Walnut Tree IgE Class 0; White Ash IgE Class 0; White Mulberry IgE <0.10 kU/L; White Mulberry IgE Class 0
== END 2024-07-31 08:51 | disposition home or self-care (01) ==
LOC: CHSLAB 08:53
PROVIDERS: PCP Nurse Practitioner Family; Visit Provider Internal Medicine Critical Care Medicine
DX: J45.909 Unspecified asthma, uncomplicated (principal)
CPT/HCPCS: 36415; 82785; 86003